=== PATIENT | female | born 1940 | race Native Hawaiian/Other Pacific Islander ===

== ENCOUNTER 2017-02-04 04:16 | Inpatient (IN) | payer OTHER, MEDICARE ==
[2017-02-04 04:16] VITALS: BMI 24.9
[2017-02-04] MEDS ORDERED: Aspirin 325 mg EC Tablets PO STA (04:50)
--- NOTE | 2017-02-04 04:50 | C.PDOC ---
History Of Present Illness pt brought in by family for increasing shortness of breath. Pt is m-w-f hemodialysis. Speaking in 2-3 word sentences. NO f/c/n/v Time Seen by Provider: 02/04/17 04:49 Chief Complaint (Nursing): Chest Pain History Per: Family History/Exam Limitations: clinical condition Current Symptoms Are (Timing): Worse Context: Other Severity: Severe Pain Scale Rating Of: 8 Quality: Dull Associated Symptoms: Dyspnea Modifying Factors: None Exacerbating Factors: None Alleviating Factors: None Recent travel outside of the [place]: No Additional History Per: Family Past Medical History Reviewed: Historical Data, Nursing Documentation, Vital Signs Vital Signs: Last Vital Signs Temp 97.8 F 02/04/17 04:33 Pulse 82 02/04/17 06:24 Resp 12 02/04/17 04:33 BP 97/53 L 02/04/17 04:33 Pulse Ox 95 02/04/17 05:33 - Medical History PMH: Anemia, Arthritis, Atrial Fibrillation, Cardia Arrhythmia, Gastritis, HTN, Hypercholesterolemia, End Stage Renal Disease, Chronic Kidney Disease Surgical History: CABG (CABG x 4 on 03/06/2009.), Endoscopy - [facility] Procedures DILATION OF 1 COR ART WITH DRUG-ELUT INTRA, PERC APPROACH (05/09/15) FLUOROSCOPY OF LEFT HEART USING LOW OSMOLAR CONTRAST (05/09/15) FLUOROSCOPY OF SINGLE CORONARY ARTERY USING L OSM CONTRAST (05/09/15) MEASURE OF CARDIAC SAMPL & PRESSURE, L HEART, PERC APPROACH (05/09/15) OTHER LOCAL DESTRUC SKIN (12/27/13) PERFORMANCE OF URINARY FILTRATION, MULTIPLE (08/29/15) Family History: States: Hypertension - Social History Hx Tobacco Use: No Hx Alcohol Use: No Hx Substance Use: No - Immunization History Hx Tetanus Toxoid Vaccination: No Hx Influenza Vaccination: Yes Hx Pneumococcal Vaccination: Yes Review Of Systems Review Of Systems: ROS cannot be obtained secondary to pt's inabilty to answer questions. Physical Exam - Physical Exam Appears: In Acute Distress Skin: Warm, Dry Head: Normacephalic Eye(s): bilateral: Normal Inspection Oral Mucosa: Dry Neck: Supple Chest: Symmetrical Cardiovascular: Rhythm Irregular Respiratory: Decreased Breath Sounds, Rales, No Wheezing Gastrointestinal/Abdominal: Soft, No Tenderness, Distention Back: No CVA Tenderness Extremity: Pedal Edema (trace), Other (left gortex graft with good thrill and bruit) Extremity: Bilateral: Atraumatic Neurological/Psych: Slow To Respond With Command Gait: Unable To Assess ED Course And Treatment - Laboratory Results Result Diagrams: 02/04/17 05:15 02/04/17 05:15 ECG: Interpreted By Me, Viewed By Me ECG Rhythm: Atrial Fibrillation, Nonspecific Changes O2 Sat by Pulse Oximetry: 95 Pulse Ox Interpretation: Normal - Radiology CXR: Interpreted by Me, Viewed By Me CXR Interpretation: Yes: Cardiomegaly, Other (chf, ? rll infiltrate, cabg). No : Fracture Progress Note: cardiac work up, bipap. spoke with dr larsen. will dialyse on an ememrgent basis. sat 96-98 on bipap Critical Care Time - Critical Care Note Total Time (in mins): 30 Documented critical care: time excludes all time spent performing seperately billable procedures. Disposition Discussed With Dr.: Izabel Peterson Comment: accepted the pt on his service and took over the care at 6:48AM Doctor Will See Patient In The: Hospital Counseled Patient/Family Regarding: Studies Performed, Diagnosis - Disposition Disposition: HOSPITALIZED Disposition Time: 04:30 Condition: FAIR - POA Present On Arrival: Poor Glycemic Control - Clinical Impression Clinical Impression: ESRD (end stage renal disease) on dialysis, Afib, Congestive heart failure, Elevated liver enzymes Decision To Admit - Pt Status Changed To: Hospital Disposition Of: Inpatient - Admit Certification Admit to Inpatient:: After my assessment, the patient will require hospitalization for at least two midnights. This is because of the severity of symptoms shown, intensity of services needed, and/or the medical risk in this patient being treated as an outpatient. - InPatient: Physician Admission Certification: I certify that this patient requires 2 or more midnights of care for the following reason:: After my assessment, the patient will require hospitalization for at least two midnights. This is because of the severity of symptoms shown, intensity of services needed, and/or the medical risk in this patient being treated as an outpatient. - . Bed Request Type: Telemetry Admitting Physician: Izabel Peterson Patient Diagnosis: ESRD (end stage renal disease) on dialysis, Afib, Congestive heart failure
[2017-02-04 05:18] LABS: BASO % 0.4 % (0.0-2.0); HEMOGLOBIN 11.4 g/dL (11.0-16.0); LYMPH # 0.4 K/uL (1.0-4.3); LYMPH % 4.3 % (20.0-40.0); MEAN CELL VOLUME 101.6 fL (81.0-99.0); MEAN CORPUSCULAR HEMOGLOBIN 32.4 pg (27.0-31.0); MEAN CORPUSCULAR HGB CONC 31.9 g/dL (33.0-37.0); MEAN PLATELET VOLUME 8.8 fL (7.2-11.7); MONO # 1.1 K/uL (0.0-0.8); MONO % 11.5 % (0.0-10.0); NEUT # 7.7 K/uL (1.8-7.0); NEUT % 83.8 % (50.0-75.0); NRBC % 0.2 % (0.0-2.0); PLATELET COUNT 127 K/uL (130-400); RBC 3.51 Mil/uL (3.80-5.20); RED CELL DISTRIBUTION WIDTH 16.9 % (11.5-14.5); WHITE BLOOD COUNT 9.2 K/uL (4.8-10.8)
[2017-02-04 05:47] LABS: ABG ALLEN TEST POS; ARTERIAL BLOOD GAS HCO3 24.2 mmol/L (21-28); ARTERIAL BLOOD GAS O2 SAT 99.6 % (95-98); ARTERIAL BLOOD GAS PCO2 57 mm/Hg (35-45); ARTERIAL BLOOD GAS PH 7.28 (7.35-7.45); ARTERIAL BLOOD GAS PO2 123 mm/Hg (80-100); ARTERIAL BLOOD GAS TCO2 28.5 mmol/L (22-28)
[2017-02-04 05:59] LABS: INR 1.7; PROTHROMBIN TIME 19.3 SECONDS (9.7-12.2)
[2017-02-04 06:17] LABS: ALBUMIN 3.9 g/dL (3.5-5.0)
[2017-02-04 06:20] LABS: ALB/GLOB RATIO 1.1 (1.0-2.1); CALCIUM 8.2 mg/dl (8.6-10.4)
[2017-02-04 06:36] LABS: TROPONIN I 0.864 ng/mL (0.00-0.120)
[2017-02-04 06:49] LABS: LYMPHOCYTE 4 % (20-40); MONOCYTE 12 % (0-10); NEUTROPHIL 84 % (50-75); PLATELET ESTIMATE NORMAL (NORMAL); TOTAL CELLS COUNTED 100
[2017-02-04] MEDS ORDERED: Sodium Chloride 0.9% 250 ML IV ONE ×2 (08:16→08:20)
--- NOTE | 2017-02-04 10:12 | RAD ---
PROCEDURE: CHEST RADIOGRAPH, 1 VIEW HISTORY: Chest pain COMPARISON: 10/18/2015. FINDINGS: LUNGS: There is pulmonary venous congestion. There is ill-defined airspace disease in the right lower lobe. PLEURA: No pneumothorax or pleural fluid seen. CARDIOVASCULAR: There is persistent moderate cardiomegaly. There are multiple surgical clips in the left hilum. Status post CABG. Atherosclerotic aortic arch calcifications are present. . OSSEOUS STRUCTURES: No significant abnormalities. VISUALIZED UPPER ABDOMEN: Normal. OTHER FINDINGS: None. IMPRESSION: Question of right lower lobe pneumonia. Follow-up after medical management is recommended to ensure complete resolution. Persistent moderate cardiomegaly.
[2017-02-04] MEDS: (Lantus) Insulin Glargine, Recombinant SC SCH ×2 (14:58→17:03)
--- NOTE | 2017-02-04 15:00 | CP.PCM.CON ---
History of Present Illness - History of Present Illness History of Present Illness: 76 y/o FF presents with increased dyspnea. CHF diagnosed and needed immediate dialysis- UF 2500ml Has been compliant with dialysis PMH: ESRD HTN DL CAD- POST CABG ICMP PSH: CABG 2008 AV FISTULA CONSULT DICTATED WILL ARRANGE FOR DIALYSIS MWF WITH ADEQUATE UF Past Patient History - Infectious Disease Hx of Infectious Diseases: None - Past Medical History & Family History Past Medical History?: Yes - Past Social History Smoking Status: Never Smoked - CARDIAC Hx Atrial Fibrillation: Yes Hx Cardia Arrhythmia: Yes Hx Hypercholesterolemia: Yes Hx Hypertension: Yes - PULMONARY Hx Respiratory Disorders: Yes Hx Pulmonary Edema: Yes - NEUROLOGICAL Hx Neurological Disorder: Yes Hx Dizziness: Yes - HEENT Hx HEENT Problems: Yes Hx Cataracts: Yes (Left and right cataract extraction in 2011) Hx Glaucoma: Yes - RENAL Hx Chronic Kidney Disease: Yes - ENDOCRINE/METABOLIC Hx Endocrine Disorders: Yes Hx Diabetes Mellitus Type 2: Yes - HEMATOLOGICAL/ONCOLOGICAL Hx Anemia: Yes - INTEGUMENTARY Hx Dermatological Problems: No - MUSCULOSKELETAL/RHEUMATOLOGICAL Hx Arthritis: Yes Hx Falls: No - GASTROINTESTINAL Hx Gastritis: Yes - GENITOURINARY/GYNECOLOGICAL Hx Genitourinary Disorders: No - PSYCHIATRIC Hx Substance Use: No - SURGICAL HISTORY Hx Coronary Artery Bypass Graft: Yes (CABG x 4 on 03/06/2009.) - ANESTHESIA Hx Anesthesia: Yes Hx Anesthesia Reactions: No Hx Malignant Hyperthermia: No Meds Allergies/Adverse Reactions: Allergies Allergy/AdvReac Type Severity Reaction Status Date / Time No Known Allergies Allergy Verified 02/27/16 12:51 - Medications Medications: Current Medications Amlodipine Besylate (Norvasc) 5 mg PO DAILY [facility] Last Admin: 02/04/17 14:51 Dose: Not Given Apixaban (Eliquis) 2.5 mg PO BID [facility] Cilostazol (Pletal) 100 mg PO BID [facility] Cinacalcet (Sensipar) 30 mg PO DAILY [facility] Clopidogrel Bisulfate (Plavix) 75 mg PO DAILY [facility] Diltiazem HCl (Cardizem) 60 mg PO QID [facility] Last Admin: 02/04/17 14:51 Dose: Not Given Famotidine (Pepcid) 20 mg PO DAILY [facility] [place] Moxifloxacin HCl (Avelox Iv 400mg/250ml Ns) 400 mg in 250 mls @ 167 mls/hr IVPB MWF [facility] Insulin Glargine (Lantus) 50 unit SC BID [facility] Pregabalin (Lyrica) 25 mg PO TID [facility] [place] Last Admin: 02/04/17 14:54 Dose: Not Given Rosuvastatin Calcium (Crestor) 10 mg PO [facility] Sevelamer Carbonate (Renvela) 800 mg PO TID [facility] Last Admin: 02/04/17 14:52 Dose: Not Given Results - Vital Signs Recent Vital Signs: Last Vital Signs Temp 97.8 F 02/04/17 10:05 Pulse 76 02/04/17 14:40 Resp 20 02/04/17 14:40 BP 91/52 L 02/04/17 14:40 Pulse Ox 95 02/04/17 14:40 - Labs Result Diagrams: 02/04/17 05:15 02/04/17 05:15
[2017-02-04] MEDS: Cilostazol 100 mg Tab UD PO SCH ×2 (15:23→17:24)
--- NOTE | 2017-02-04 15:43 | CP.PCM.CON ---
History of Present Illness - History of Present Illness History of Present Illness: 76 y/o FF presents with increased dyspnea. CHF diagnosed and needed immediate dialysis- UF 2500ml Has been compliant with dialysis PMH: ESRD HTN DL CAD- POST CABG ICMP PSH: CABG 2008 AV FISTULA CONSULT DICTATED WILL ARRANGE FOR DIALYSIS MWF WITH ADEQUATE UF Review of Systems - Review of Systems Systems not reviewed;Unavailable: Respiratory Distress Past Patient History - Infectious Disease Hx of Infectious Diseases: None - Past Medical History & Family History Past Medical History?: Yes - Past Social History Smoking Status: Never Smoked Chewing Tobacco Use: No Cigar Use: No Alcohol: None Drugs: Denies Home Situation {Lives}: With Family - CARDIAC Hx Atrial Fibrillation: Yes Hx Cardia Arrhythmia: Yes Hx Hypercholesterolemia: Yes Hx Hypertension: Yes - PULMONARY Hx Respiratory Disorders: Yes Hx Pulmonary Edema: Yes - NEUROLOGICAL Hx Neurological Disorder: Yes Hx Dizziness: Yes - HEENT Hx HEENT Problems: Yes Hx Cataracts: Yes (Left and right cataract extraction in 2011) Hx Glaucoma: Yes - RENAL Hx Chronic Kidney Disease: Yes - ENDOCRINE/METABOLIC Hx Endocrine Disorders: Yes Hx Diabetes Mellitus Type 2: Yes - HEMATOLOGICAL/ONCOLOGICAL Hx Anemia: Yes - INTEGUMENTARY Hx Dermatological Problems: No - MUSCULOSKELETAL/RHEUMATOLOGICAL Hx Arthritis: Yes Hx Falls: No - GASTROINTESTINAL Hx Gastritis: Yes - GENITOURINARY/GYNECOLOGICAL Hx Genitourinary Disorders: No - PSYCHIATRIC Hx Substance Use: No - SURGICAL HISTORY Hx Coronary Artery Bypass Graft: Yes (CABG x 4 on 03/06/2009.) - ANESTHESIA Hx Anesthesia: Yes Hx Anesthesia Reactions: No Hx Malignant Hyperthermia: No Meds Allergies/Adverse Reactions: Allergies Allergy/AdvReac Type Severity Reaction Status Date / Time No Known Allergies Allergy Verified 02/27/16 12:51 - Medications Medications: Current Medications Amlodipine Besylate (Norvasc) 5 mg PO DAILY [facility] Last Admin: 02/04/17 14:51 Dose: Not Given Apixaban (Eliquis) 2.5 mg PO BID [facility] Last Admin: 02/04/17 15:06 Dose: Not Given Cilostazol (Pletal) 100 mg PO BID [facility] Last Admin: 02/04/17 15:23 Dose: 100 mg Cinacalcet (Sensipar) 30 mg PO DAILY [facility] Last Admin: 02/04/17 15:23 Dose: 30 mg Clopidogrel Bisulfate (Plavix) 75 mg PO DAILY [facility] Last Admin: 02/04/17 15:23 Dose: 75 mg Diltiazem HCl (Cardizem) 60 mg PO QID [facility] Last Admin: 02/04/17 14:51 Dose: Not Given Famotidine (Pepcid) 20 mg PO DAILY [facility] Last Admin: 02/04/17 15:23 Dose: 20 mg Moxifloxacin HCl (Avelox Iv 400mg/250ml Ns) 400 mg in 250 mls @ 167 mls/hr IVPB MWF [facility] Insulin Glargine (Lantus) 50 unit SC BID [facility] Last Admin: 02/04/17 14:58 Dose: Not Given Pregabalin (Lyrica) 25 mg PO TID [facility] Last Admin: 02/04/17 15:22 Dose: 25 mg Rosuvastatin Calcium (Crestor) 10 mg PO [facility] Sevelamer Carbonate (Renvela) 800 mg PO TID [facility] Last Admin: 02/04/17 15:23 Dose: 800 mg Physical Exam - Constitutional Appears: In Acute Distress, Chronically Ill - Head Exam Head Exam: ATRAUMATIC, NORMAL INSPECTION - Eye Exam Eye Exam: EOMI, Normal appearance - Neck Exam Neck exam: Positive for: Normal Inspection. Negative for: Tenderness - Respiratory Exam Respiratory Exam: Rales, Respiratory Distress - Cardiovascular Exam Cardiovascular Exam: REGULAR RHYTHM, +S1 - GI/Abdominal Exam GI & Abdominal Exam: Soft. absent: Tenderness - Extremities Exam Extremities exam: Positive for: normal inspection. Negative for: tenderness - Neurological Exam Neurological exam: Alert, CN II-XII Intact - Skin Skin Exam: Dry, Warm Results - Vital Signs Recent Vital Signs: Last Vital Signs Temp 97.8 F 02/04/17 10:05 Pulse 76 02/04/17 14:40 Resp 20 02/04/17 14:40 BP 91/52 L 02/04/17 14:40 Pulse Ox 95 02/04/17 14:40 - Labs Result Diagrams: 02/04/17 05:15 02/04/17 05:15 Assessment & Plan (1) Ischemic cardiomyopathy Status: Acute (2) Afib Status: Acute (3) Congestive heart failure Status: Acute (4) ESRD (end stage renal disease) on dialysis Status: Chronic (5) CAD (coronary artery disease) of artery bypass graft Status: Acute - Assessment and Plan (Free Text) Plan: UF with dialysis BiPAP as needed Dialysis MWF
--- NOTE | 2017-02-04 18:11 | CP.PCM.HP ---
Past Patient History - Infectious Disease Hx of Infectious Diseases: None - Past Medical History & Family History Past Medical History?: Yes - Past Social History Smoking Status: Never Smoked Chewing Tobacco Use: No Cigar Use: No Alcohol: None Drugs: Denies Home Situation {Lives}: With Family - CARDIAC Hx Atrial Fibrillation: Yes Hx Cardia Arrhythmia: Yes Hx Hypercholesterolemia: Yes Hx Hypertension: Yes - PULMONARY Hx Respiratory Disorders: Yes Hx Pulmonary Edema: Yes - NEUROLOGICAL Hx Neurological Disorder: Yes Hx Dizziness: Yes - HEENT Hx HEENT Problems: Yes Hx Cataracts: Yes (Left and right cataract extraction in 2011) Hx Glaucoma: Yes - RENAL Hx Chronic Kidney Disease: Yes - ENDOCRINE/METABOLIC Hx Endocrine Disorders: Yes Hx Diabetes Mellitus Type 2: Yes - HEMATOLOGICAL/ONCOLOGICAL Hx Anemia: Yes - INTEGUMENTARY Hx Dermatological Problems: No - MUSCULOSKELETAL/RHEUMATOLOGICAL Hx Arthritis: Yes Hx Falls: No - GASTROINTESTINAL Hx Gastritis: Yes - GENITOURINARY/GYNECOLOGICAL Hx Genitourinary Disorders: No - PSYCHIATRIC Hx Substance Use: No - SURGICAL HISTORY Hx Coronary Artery Bypass Graft: Yes (CABG x 4 on 03/06/2009.) - ANESTHESIA Hx Anesthesia: Yes Hx Anesthesia Reactions: No Hx Malignant Hyperthermia: No Meds Allergies/Adverse Reactions: Allergies Allergy/AdvReac Type Severity Reaction Status Date / Time No Known Allergies Allergy Verified 02/27/16 12:51 Physical Exam - Constitutional Appears: Well - Head Exam Head Exam: ATRAUMATIC, NORMAL INSPECTION, NORMOCEPHALIC - Eye Exam Eye Exam: EOMI, Normal appearance, PERRL Pupil Exam: NORMAL ACCOMODATION, PERRL - ENT Exam ENT Exam: Mucous Membranes Moist, Normal Exam - Neck Exam Neck exam: Positive for: Normal Inspection - Respiratory Exam Respiratory Exam: Decreased Breath Sounds - Cardiovascular Exam Cardiovascular Exam: REGULAR RHYTHM, +S1, +S2 - GI/Abdominal Exam GI & Abdominal Exam: Diminished Bowel Sounds, Soft - Rectal Exam Rectal Exam: Deferred Results - Vital Signs Recent Vital Signs: Last Vital Signs Temp 98 F 02/04/17 16:30 Pulse 87 02/04/17 16:30 Resp 20 02/04/17 16:30 BP 92/53 L 02/04/17 16:30 Pulse Ox 95 02/04/17 16:30 - Labs Result Diagrams: 02/04/17 05:15 02/04/17 05:15 Labs: Laboratory Results - last 24 hr 02/04/17 02/04/17 16:40 17:10 POC Glucose (mg/dL) 45 L 71
--- NOTE | 2017-02-04 18:43 | US ---
HISTORY: elevated liver enzymes COMPARISON: None available. TECHNIQUE: Sonographic evaluation of the right upper quadrant of the abdomen. FINDINGS: LIVER: Measures 14.1 cm in length. Echogenic liver may be seen in setting of hepatic parenchymal disease or fatty infiltration. No focal hepatic mass identified. The main portal vein appears patent with normal directional flow. No intrahepatic bile duct dilatation. GALLBLADDER: No gallstones. Pericholecystic edema/ gallbladder-wall thickening measuring up to 7 mm. 6 mm echogenic focus without clear evidence of posterior acoustic shadowing, favored to represent a polyp. Negative sonographic Sanchez's sign as assessed by the coupon and bond collection clerk. COMMON BILE DUCT: Measures 6 mm. PANCREAS: Not well-visualized. RIGHT KIDNEY: Measures 7.1 x 2.5 x 3.2 cm. No hydronephrosis or obstructing calculus identified. Echogenic renal parenchyma. AORTA: Limited visualization appears grossly unremarkable. IVC: Limited visualization appears grossly unremarkable. OTHER FINDINGS: Incidental note is made of right-sided pleural effusion. Small abdominal ascites. IMPRESSION: Echogenic liver may be seen in setting of hepatic parenchymal disease or fatty infiltration. Suspected gallbladder polyp measuring approximately 6 mm. No consensus exist regarding management of polyps in the size range. Current recommendations indicate continued surveillance with serial follow-up imaging at 3, 6, and 12 months. Gallbladder wall edema/wall thickening measuring up to 7 mm. No calcified gallstones evident. Negative sonographic Sanchez sign as assessed by the coupon and bond collection clerk. Echogenic renal parenchyma may be seen in setting of medical renal disease. Right-sided pleural effusion. Small abdominal ascites.
--- NOTE | 2017-02-05 07:35 | CP.PCM.CON ---
<Attila Alonzo - Last Filed: 02/05/17 11:55> History of Present Illness - History of Present Illness History of Present Illness: PGY4 GI Fellow Consult Note Patient is a 76yo female with PMHx significant for atrial fibrillation on Eliquis, CAD s/p PCI and 4 vessel CABG on Plavix, ESRD on HD MWF, DM, HTN, HLD who presented to the ED with shortness of breath. Earlier this morning, the patient was very drowsy and minimally arousable, falling asleep frequently during examination. She was only responding that she is "OK" and was not oriented to time/place. On returning to bedside an hour later, she is more alert but remains confused, unaware of where she is, how she came to be hospitalized or what year it is. Per the EMR, patient presented to the hospital with worsening shortness of breath; patient unable to describe time frame. On lab work, she is noted to have a elevated BNP, BUN/Cr c/w her h/o ESRD, troponin and elevated LFTs for which our service has been consulted. She was seen and evaluated by nephrology last night and had one session of HD performed with UF. In reviewing her prior admissions, she has never had elevated LFTs previously and does not have any known underlying liver disease. Currently, she denies any abdominal pain, nausea, vomiting or change in bowel habits. An attempt to reach the patient's spouse and son whose numbers are listed in the EMR were unsuccessful. PMHx: See HPI PSHx: 4 vessel CABG, PCI, AVF creation in left forearm FHx: Limited given clinical condition however patient denies any significant family history; per chart - HTN and DM Social: Denies tobacco, EtOH or illicit drug use Endo: Denies prior endoscopic evaluation Review of Systems - Review of Systems Review of Systems: Limited by altered mentation - Constitutional Constitutional: absent: Anorexia, Chills, Fever - EENT Eyes: absent: Change in Vision Nose/Mouth/Throat: absent: Sore Throat - Cardiovascular Cardiovascular: Dyspnea, Edema. absent: Chest Pain - Respiratory Respiratory: Dyspnea, Dyspnea on Exertion. absent: Excessive Mucous Production - Gastrointestinal Gastrointestinal: absent: Abdominal Pain, Constipation, Cramping, Diarrhea, Heartburn, Nausea, Vomiting - Genitourinary Genitourinary: absent: Dysuria, Urinary Frequency, Urinary Urgency - Musculoskeletal Musculoskeletal: absent: Back Pain, Neck Pain - Integumentary Integumentary: absent: New Lesions, Rash - Neurological Neurological: absent: Dizziness, Numbness, Focal Weakness - Psychiatric Psychiatric: absent: Anxiety, Depression - Endocrine Endocrine: absent: Polydipsia, Polyphagia, Polyuria - Hematologic/Lymphatic Hematologic: absent: Easy Bleeding, Easy Bruising, Lymphadenopathy Past Patient History - Infectious Disease Hx of Infectious Diseases: None - Past Medical History & Family History Past Medical History?: Yes - Past Social History Smoking Status: Never Smoked Chewing Tobacco Use: No Cigar Use: No Alcohol: None Drugs: Denies Home Situation {Lives}: With Family - CARDIAC Hx Atrial Fibrillation: Yes Hx Cardia Arrhythmia: Yes Hx Hypercholesterolemia: Yes Hx Hypertension: Yes - PULMONARY Hx Respiratory Disorders: Yes Hx Pulmonary Edema: Yes - NEUROLOGICAL Hx Neurological Disorder: Yes Hx Dizziness: Yes - HEENT Hx HEENT Problems: Yes Hx Cataracts: Yes (Left and right cataract extraction in 2012) Hx Glaucoma: Yes - RENAL Hx Chronic Kidney Disease: Yes - ENDOCRINE/METABOLIC Hx Endocrine Disorders: Yes Hx Diabetes Mellitus Type 2: Yes - HEMATOLOGICAL/ONCOLOGICAL Hx Anemia: Yes - INTEGUMENTARY Hx Dermatological Problems: No - MUSCULOSKELETAL/RHEUMATOLOGICAL Hx Arthritis: Yes Hx Falls: No - GASTROINTESTINAL Hx Gastritis: Yes - GENITOURINARY/GYNECOLOGICAL Hx Genitourinary Disorders: No - PSYCHIATRIC Hx Substance Use: No - SURGICAL HISTORY Hx Coronary Artery Bypass Graft: Yes (CABG x 4 on 03/06/2009.) - ANESTHESIA Hx Anesthesia: Yes Hx Anesthesia Reactions: No Hx Malignant Hyperthermia: No Meds Allergies/Adverse Reactions: Allergies Allergy/AdvReac Type Severity Reaction Status Date / Time No Known Allergies Allergy Verified 02/27/16 12:51 - Medications Medications: Current Medications Amlodipine Besylate (Norvasc) 5 mg PO DAILY [facility] [place] Last Admin: 02/04/17 14:51 Dose: Not Given Apixaban (Eliquis) 2.5 mg PO BID [facility] [place] Last Admin: 02/04/17 17:27 Dose: 2.5 mg Cilostazol (Pletal) 100 mg PO BID [facility] [place] Last Admin: 02/04/17 17:24 Dose: 100 mg Cinacalcet (Sensipar) 30 mg PO DAILY [facility] [place] Last Admin: 02/04/17 15:23 Dose: 30 mg Clopidogrel Bisulfate (Plavix) 75 mg PO DAILY [facility] [place] Last Admin: 02/04/17 15:23 Dose: 75 mg Diltiazem HCl (Cardizem) 60 mg PO QID [facility] [place] Last Admin: 02/04/17 21:17 Dose: Not Given Famotidine (Pepcid) 20 mg PO DAILY [facility] [place] Last Admin: 02/04/17 15:23 Dose: 20 mg Moxifloxacin HCl (Avelox Iv 400mg/250ml Ns) 400 mg in 250 mls @ 167 mls/hr IVPB MWF [facility] [place] Insulin Glargine (Lantus) 50 unit SC BID [facility] [place] Last Admin: 02/04/17 17:03 Dose: Not Given Pregabalin (Lyrica) 25 mg PO TID [facility] [place] Last Admin: 02/04/17 17:24 Dose: 25 mg Rosuvastatin Calcium (Crestor) 10 mg PO HS [facility] [place] Last Admin: 02/04/17 21:10 Dose: 10 mg Sevelamer Carbonate (Renvela) 800 mg PO TID [facility] [place] Last Admin: 02/04/17 17:24 Dose: 800 mg Physical Exam - Constitutional Appears: No Acute Distress, Confused - Eye Exam Eye Exam: EOMI, PERRL - ENT Exam ENT Exam: Mucous Membranes Dry - Respiratory Exam Respiratory Exam: Decreased Breath Sounds, Rales. absent: Rhonchi, Wheezes Additional comments: wearning ventimask - Cardiovascular Exam Cardiovascular Exam: Irregular Rhythm, +S1, +S2 - GI/Abdominal Exam GI & Abdominal Exam: Normal Bowel Sounds, Soft. absent: Distended, Firm, Guarding, Organomegaly, Rigid, Tenderness - Extremities Exam Additional comments: B/L 1+ LE edema - Neurological Exam Additional comments: Drowsy but arousable; oriented to person only - Psychiatric Exam Additional comments: confused - Skin Skin Exam: Dry, Warm Results - Vital Signs Recent Vital Signs: Last Vital Signs Temp 98.3 F 02/05/17 04:44 Pulse 86 02/05/17 05:59 Resp 20 02/05/17 05:59 BP 103/56 L 02/05/17 05:59 Pulse Ox 99 02/05/17 05:59 - Labs Result Diagrams: 02/05/17 07:29 02/05/17 07:29 Labs: Laboratory Results - last 24 hr 02/04/17 02/04/17 02/04/17 16:40 17:10 20:52 POC Glucose (mg/dL) 45 L 71 255 H 02/05/17 06:09 POC Glucose (mg/dL) 204 H Assessment & Plan - Assessment and Plan (Free Text) Assessment: Patient is a 76yo female with PMHx significant for atrial fibrillation on Eliquis, CAD s/p PCI and 4 vessel CABG on Plavix, ESRD on HD MWF, DM, HTN, HLD who presented to the ED with shortness of breath -Dyspnea, likely 2/2 acute diastolic CHF exacerbation -ESRD on HD -Elevated LFTs, hepatocellular pattern -CAD -Atrial fibrillation -DM -HTN -Hyperlipidemia Plan: -Significantly elevated BNP noted -Pt s/p HD/UF last night; nephrology following -Check echocardiogram; last exam from 2014 -Troponin elevation noted; possibly demand ischemia; cardiology following -Respiratory acidosis noted on initial blood gas, on venitmask - ICU had evaluated patient -Regarding her LFTs; suspect congestive hepatopathy in this setting, check echocardiogram and eval right heart -U/S noted with hepatic steatosis; patent portal vasculature -Check Hepatitis panel -Check autoimmune panel: SALOMÓN, AMA, SMA, LKM-Ab, IgG level -Recommend CT head given altered mentation - Date & Time Date: 02/05/17 Time: 06:50 <Elvis Burt - Last Filed: 02/05/17 16:18> Meds - Medications Medications: Current Medications Amlodipine Besylate (Norvasc) 5 mg PO DAILY [facility] [place] Last Admin: 02/04/17 14:51 Dose: Not Given Apixaban (Eliquis) 2.5 mg PO BID [facility] [place] Last Admin: 02/05/17 11:54 Dose: 2.5 mg Cilostazol (Pletal) 100 mg PO BID [facility] [place] Last Admin: 02/05/17 11:55 Dose: 100 mg Cinacalcet (Sensipar) 30 mg PO DAILY [facility] [place] Last Admin: 02/05/17 11:55 Dose: 30 mg Clopidogrel Bisulfate (Plavix) 75 mg PO DAILY [facility] [place] Last Admin: 02/05/17 11:55 Dose: 75 mg Diltiazem HCl (Cardizem) 60 mg PO QID [facility] [place] Last Admin: 02/04/17 21:17 Dose: Not Given Famotidine (Pepcid) 20 mg PO DAILY [facility] [place] Last Admin: 02/05/17 11:54 Dose: 20 mg Moxifloxacin HCl (Avelox Iv 400mg/250ml Ns) 400 mg in 250 mls @ 167 mls/hr IVPB Q24H [facility] [place] Last Admin: 02/05/17 12:55 Dose: 167 mls/hr Insulin Glargine (Lantus) 50 unit SC BID [facility] [place] Last Admin: 02/05/17 09:16 Dose: Not Given Pregabalin (Lyrica) 25 mg PO TID [facility] [place] Last Admin: 02/05/17 14:11 Dose: Not Given Rosuvastatin Calcium (Crestor) 10 mg PO HS [facility] [place] Last Admin: 02/04/17 21:10 Dose: 10 mg Sevelamer Carbonate (Renvela) 800 mg PO TID [facility] [place] Last Admin: 02/05/17 14:11 Dose: Not Given Results - Vital Signs Recent Vital Signs: Last Vital Signs Temp 97.5 F L 02/05/17 15:54 Pulse 103 H 02/05/17 15:54 Resp 20 02/05/17 15:54 BP 143/86 02/05/17 15:54 Pulse Ox 96 02/05/17 15:54 - Labs Result Diagrams: 02/05/17 12:00 02/05/17 12:00 Labs: Laboratory Results - last 24 hr 02/04/17 02/04/17 02/04/17 16:40 17:10 20:52 WBC RBC Hgb Hct MCV MCH MCHC RDW Plt Count MPV Neut % (Auto) Lymph % (Auto) [place] % (Auto) Eos % (Auto) Baso % (Auto) Neut # Lymph # [place] # Eos # Baso # Neutrophils % (Manual) Band Neutrophils % Lymphocytes % (Manual) Monocytes % (Manual) Nucleated RBC % Platelet Estimate Large Platelets Giant Platelets Hypochromasia (manual) Poikilocytosis (manual Basophilic Stippling Anisocytosis (manual) Ovalocytes Puncture Site pCO2 pO2 HCO3 ABG pH ABG Total CO2 ABG O2 Saturation ABG Base Excess Nadir Test ABG Potassium A-a O2 Difference Respiratory Index Glucose Lactate FiO2 Sodium Potassium Chloride Carbon Dioxide Anion Gap BUN Creatinine Est GFR ( Amer) Est GFR (Non-Af Amer) POC Glucose (mg/dL) 45 L 71 255 H Random Glucose Calcium Phosphorus Magnesium Total Bilirubin Direct Bilirubin AST ALT Alkaline Phosphatase Total Creatine Kinase CK-MB (Mass) Troponin I, Quant Total Protein Albumin Globulin Albumin/Globulin Ratio Procalcitonin Arterial Blood Potassium IgG 02/05/17 02/05/17 02/05/17 06:09 07:29 07:29 WBC 6.5 RBC 3.15 L Hgb 10.2 L Hct 31.5 L MCV 99.9 H MCH 32.3 H MCHC 32.3 L RDW 16.1 H Plt Count 104 L D MPV 9.3 Neut % (Auto) 82.9 H Lymph % (Auto) 7.0 L [place] % (Auto) 9.5 Eos % (Auto) 0.3 Baso % (Auto) 0.3 Neut # 5.4 Lymph # 0.5 L [place] # 0.6 Eos # 0.0 Baso # 0.0 Neutrophils % (Manual) 83 H Band Neutrophils % Lymphocytes % (Manual) 8 L Monocytes % (Manual) 9 Nucleated RBC % 4 H Platelet Estimate Slightly decreased L Large Platelets Giant Platelets Hypochromasia (manual) Slight Poikilocytosis (manual Slight Basophilic Stippling Anisocytosis (manual) Slight Ovalocytes Slight Puncture Site pCO2 pO2 HCO3 ABG pH ABG Total CO2 ABG O2 Saturation ABG Base Excess Nadir Test ABG Potassium A-a O2 Difference Respiratory Index Glucose Lactate FiO2 Sodium 135 Potassium 4.3 Chloride 94 L Carbon Dioxide 33 H Anion Gap 12 BUN 27 H Creatinine 4.0 H Est GFR ( Amer) 13 Est GFR (Non-Af Amer) 11 POC Glucose (mg/dL) 204 H Random Glucose 173 H Calcium 7.9 L Phosphorus Magnesium Total Bilirubin 0.9 Direct Bilirubin 0.9 H AST 1003 H ALT 661 H D Alkaline Phosphatase 99 Total Creatine Kinase CK-MB (Mass) Troponin I, Quant Total Protein 6.2 L Albumin 3.3 L Globulin 2.9 Albumin/Globulin Ratio 1.1 Procalcitonin Arterial Blood Potassium IgG 02/05/17 02/05/17 02/05/17 10:01 10:03 11:17 WBC RBC Hgb Hct MCV MCH MCHC RDW Plt Count MPV Neut % (Auto) Lymph % (Auto) [place] % (Auto) Eos % (Auto) Baso % (Auto) Neut # Lymph # [place] # Eos # Baso # Neutrophils % (Manual) Band Neutrophils % Lymphocytes % (Manual) Monocytes % (Manual) Nucleated RBC % Platelet Estimate Large Platelets Giant Platelets Hypochromasia (manual) Poikilocytosis (manual Basophilic Stippling Anisocytosis (manual) Ovalocytes Puncture Site Rra pCO2 66 H pO2 109 H HCO3 28.7 H ABG pH 7.31 L ABG Total CO2 35.2 H ABG O2 Saturation 99.1 H ABG Base Excess 4.8 H Nadir Test Na ABG Potassium 3.9 A-a O2 Difference 522.0 Respiratory Index 4.8 Glucose 214 H Lactate 1.0 FiO2 100.0 Sodium 133.0 Potassium Chloride 98.0 Carbon Dioxide Anion Gap BUN Creatinine Est GFR ( Amer) Est GFR (Non-Af Amer) POC Glucose (mg/dL) 279 H 214 H Random Glucose Calcium Phosphorus Magnesium Total Bilirubin Direct Bilirubin AST ALT Alkaline Phosphatase Total Creatine Kinase CK-MB (Mass) Troponin I, Quant Total Protein Albumin Globulin Albumin/Globulin Ratio Procalcitonin Arterial Blood Potassium 3.9 IgG 02/05/17 02/05/17 02/05/17 12:00 12:00 12:00 WBC 6.2 RBC 3.26 L Hgb 10.4 L Hct 32.8 L MCV 100.6 H MCH 32.0 H MCHC 31.9 L RDW 16.1 H Plt Count 107 L MPV 9.1 Neut % (Auto) 85.4 H Lymph % (Auto) 5.0 L [place] % (Auto) 8.7 Eos % (Auto) 0.2 Baso % (Auto) 0.7 Neut # 5.3 Lymph # 0.3 L [place] # 0.5 Eos # 0.0 Baso # 0.0 Neutrophils % (Manual) 85 H Band Neutrophils % 2 Lymphocytes % (Manual) 7 L Monocytes % (Manual) 6 Nucleated RBC % Platelet Estimate Slightly decreased L Large Platelets Present Giant Platelets Present Hypochromasia (manual) Poikilocytosis (manual Slight Basophilic Stippling Slight Anisocytosis (manual) Slight Ovalocytes Slight Puncture Site pCO2 pO2 HCO3 ABG pH ABG Total CO2 ABG O2 Saturation ABG Base Excess Nadir Test ABG Potassium A-a O2 Difference Respiratory Index Glucose Lactate FiO2 Sodium 134 Potassium 4.1 Chloride 93 L Carbon Dioxide 31 H Anion Gap 14 BUN 28 H Creatinine 4.3 H Est GFR ( Amer) 12 Est GFR (Non-Af Amer) 10 POC Glucose (mg/dL) Random Glucose 280 H Calcium 8.0 L Phosphorus 3.5 Magnesium 2.2 Total Bilirubin 0.9 Direct Bilirubin AST 858 H ALT 667 H Alkaline Phosphatase 104 Total Creatine Kinase 229 H CK-MB (Mass) 3.06 Troponin I, Quant 1.5600 H* Total Protein 6.5 Albumin 3.5 Globulin 3.1 Albumin/Globulin Ratio 1.1 Procalcitonin Arterial Blood Potassium IgG 946.7 02/05/17 12:00 WBC RBC Hgb Hct MCV MCH MCHC RDW Plt Count MPV Neut % (Auto) Lymph % (Auto) [place] % (Auto) Eos % (Auto) Baso % (Auto) Neut # Lymph # [place] # Eos # Baso # Neutrophils % (Manual) Band Neutrophils % Lymphocytes % (Manual) Monocytes % (Manual) Nucleated RBC % Platelet Estimate Large Platelets Giant Platelets Hypochromasia (manual) Poikilocytosis (manual Basophilic Stippling Anisocytosis (manual) Ovalocytes Puncture Site pCO2 pO2 HCO3 ABG pH ABG Total CO2 ABG O2 Saturation ABG Base Excess Nadir Test ABG Potassium A-a O2 Difference Respiratory Index Glucose Lactate FiO2 Sodium Potassium Chloride Carbon Dioxide Anion Gap BUN Creatinine Est GFR ( Amer) Est GFR (Non-Af Amer) POC Glucose (mg/dL) Random Glucose Calcium Phosphorus Magnesium Total Bilirubin Direct Bilirubin AST ALT Alkaline Phosphatase Total Creatine Kinase CK-MB (Mass) Troponin I, Quant Total Protein Albumin Globulin Albumin/Globulin Ratio Procalcitonin 1.39 H Arterial Blood Potassium IgG Attending/Attestation - Attestation I have personally seen and examined this patient.: Yes I have fully participated in the care of the patient.: Yes I have reviewed all pertinent clinical information: Yes Notes (Text): 02/05/17 16:06 I have seen and examined patient with GI fellow. Agree with above documentation with the following additions. In brief, this is a 76 year old female with history of atrial fibrillation on eliquis, CAD s/p stent on plavix, ESRD on HD, DM, HTN, CHF, who initially presented to hospital with complaint of progressive dyspnea, thought to be related to CHF exacerbation. GI called for evaluation of elevated LFTs. On examination, patient is lethargic appearing and only able to participate in minimal conversation before falling asleep. Additional information obtained via discussion with nursing staff and family members. She denies abdominal pain, nausea, vomiting, diarrhea, fever/chills, weight loss, rectal bleeding, or change in bowel habits. She describes that over the past few days she is not able to breathe properly, even with minimal exertion. She denies excessive ETOH or tylenol intake, no prior endoscopic evaluation. Atrial fibrillation on eliquis CAD s/p stent on plavix ESRD on HD DM / HTN Dyspnea, CHF exacerbation Transaminitis in setting of CHF exacerbation, troponinemia Altered mental status - acute posing threat to patient life - NPO - Suggest ICU evaluation for patient given altered mental status and acute cardiac compromise - Abdominal US reviewed by me showing fatty liver, normal caliber CBD without biliary dilation, +myah-cholecystic fluid and thickened GB wall, +GB polyp, patent vasculature - Suggest echocardiogram and cardiology consultation - Obtain viral hepatitis and autoimmune panels - Suggest CT head given altered mental status and history of atrial fibrillation - Continue to monitor LFTs, avoiding hepatotoxic therapy - Will continue to monitor patient clinical course
[2017-02-05 07:45] LABS: BASO % 0.3 % (0.0-2.0); EOS % 0.3 % (0.0-4.0); HEMOGLOBIN 10.2 g/dL (11.0-16.0); LYMPH # 0.5 K/uL (1.0-4.3); MEAN CELL VOLUME 99.9 fL (81.0-99.0); MEAN CORPUSCULAR HEMOGLOBIN 32.3 pg (27.0-31.0); MEAN CORPUSCULAR HGB CONC 32.3 g/dL (33.0-37.0); MEAN PLATELET VOLUME 9.3 fL (7.2-11.7); MONO # 0.6 K/uL (0.0-0.8); MONO % 9.5 % (0.0-10.0); NEUT # 5.4 K/uL (1.8-7.0); NEUT % 82.9 % (50.0-75.0); NRBC % 1.7 % (0.0-2.0); RBC 3.15 Mil/uL (3.80-5.20); RED CELL DISTRIBUTION WIDTH 16.1 % (11.5-14.5); WHITE BLOOD COUNT 6.5 K/uL (4.8-10.8)
[2017-02-05 07:56] LABS: PLATELET COUNT 104 K/uL (130-400)
[2017-02-05 08:16] LABS: ALBUMIN 3.3 g/dL (3.5-5.0)
[2017-02-05 08:19] LABS: ALB/GLOB RATIO 1.1 (1.0-2.1); BILIRUBIN,DIRECT 0.9 mg/dL (0.0-0.4)
[2017-02-05 08:20] LABS: CALCIUM 7.9 mg/dl (8.6-10.4)
[2017-02-05 08:56] LABS: ANISOCYTOSIS SLIGHT; HYPOCHROMIC SLIGHT; LYMPHOCYTE 8 % (20-40); MONOCYTE 9 % (0-10); NEUTROPHIL 83 % (50-75); NUCLEATED RED BLOOD CELL 4 % (0-0); PLATELET ESTIMATE SLIGHTLY DECREASED (NORMAL); POIKILOCYTOSIS SLIGHT; TOTAL CELLS COUNTED 100
[2017-02-05 08:57] LABS: OVALOCYTES SLIGHT
[2017-02-05] MEDS: (Lantus) Insulin Glargine, Recombinant SC SCH (09:16)
[2017-02-05 10:03] LABS: ARTERIAL BLOOD GAS HCO3 28.7 mmol/L (21-28); ARTERIAL BLOOD GAS O2 SAT 99.1 % (95-98); ARTERIAL BLOOD GAS PCO2 66 mm/Hg (35-45); ARTERIAL BLOOD GAS PH 7.31 (7.35-7.45); ARTERIAL BLOOD GAS PO2 109 mm/Hg (80-100); ARTERIAL BLOOD GAS TCO2 35.2 mmol/L (22-28)
--- NOTE | 2017-02-05 11:02 | RAD ---
Chest x-ray single frontal view History: Fluid overload. Comparison: 02/04/2017 Findings: Prominent diffuse increased interstitial lung markings bilaterally suggestive for severe venous congestion and or edema and or infiltrate and or additional etiology. Bilateral pleural effusions. Linear consolidative changes at the right lung base. Right left hilar prominence. Prominent left suprahilar consolidative changes. Status post median sternotomy. Cardiomegaly. Surgical clips project over the left macario thorax. Biapical pleural thickening with upper lobe granulomatous changes. Tortuous aorta. Degenerative changes in the spine and shoulders. Left axillary stent in place. Impression: Prominent diffuse increased interstitial lung markings bilaterally suggestive for severe venous congestion and or edema and or infiltrate and or additional etiology. Bilateral pleural effusions. Linear consolidative changes at the right lung base. Right left hilar prominence. Prominent left suprahilar consolidative changes. Status post median sternotomy. Cardiomegaly.
--- NOTE | 2017-02-05 11:09 | CP.PCM.PN ---
Subjective - Date & Time of Evaluation Date of Evaluation: 02/05/17 Time of Evaluation: 12:00 - Subjective Subjective: clinically same Objective - Vital Signs/Intake and Output Vital Signs (last 24 hours): Temp Pulse Resp BP Pulse Ox 98.3 F 86 20 103/56 L 99 02/05/17 04:44 02/05/17 10:42 02/05/17 05:59 02/05/17 05:59 02/05/17 05:59 Intake and Output: 02/05/17 02/05/17 06:59 18:59 Intake Total 10 Balance 10 - Medications Medications: Current Medications Amlodipine Besylate (Norvasc) 5 mg PO DAILY [facility] Last Admin: 02/04/17 14:51 Dose: Not Given Apixaban (Eliquis) 2.5 mg PO BID [facility] Last Admin: 02/04/17 17:27 Dose: 2.5 mg Cilostazol (Pletal) 100 mg PO BID [facility] Last Admin: 02/04/17 17:24 Dose: 100 mg Cinacalcet (Sensipar) 30 mg PO DAILY [facility] Last Admin: 02/04/17 15:23 Dose: 30 mg Clopidogrel Bisulfate (Plavix) 75 mg PO DAILY [facility] Last Admin: 02/04/17 15:23 Dose: 75 mg Diltiazem HCl (Cardizem) 60 mg PO QID [facility] Last Admin: 02/04/17 21:17 Dose: Not Given Famotidine (Pepcid) 20 mg PO DAILY [facility] Last Admin: 02/04/17 15:23 Dose: 20 mg Moxifloxacin HCl (Avelox Iv 400mg/250ml Ns) 400 mg in 250 mls @ 167 mls/hr IVPB MWF [facility] Moxifloxacin HCl (Avelox Iv 400mg/250ml Ns) 400 mg in 250 mls @ 167 mls/hr IVPB Q24H [facility] Insulin Glargine (Lantus) 50 unit SC BID [facility] Last Admin: 02/05/17 09:16 Dose: Not Given Pregabalin (Lyrica) 25 mg PO TID [facility] Last Admin: 02/04/17 17:24 Dose: 25 mg Rosuvastatin Calcium (Crestor) 10 mg PO HS [facility] Last Admin: 02/04/17 21:10 Dose: 10 mg Sevelamer Carbonate (Renvela) 800 mg PO TID [facility] Last Admin: 02/04/17 17:24 Dose: 800 mg - Labs Labs: 02/05/17 07:29 02/05/17 07:29 PT 19.3 SECONDS (9.7-12.2) H 02/04/17 05:15 INR 1.7 02/04/17 05:15 APTT 35 SECONDS (21-34) H 02/04/17 05:15 - Constitutional Appears: Well - Head Exam Head Exam: ATRAUMATIC, NORMAL INSPECTION, NORMOCEPHALIC - Eye Exam Eye Exam: EOMI, Normal appearance, PERRL Pupil Exam: NORMAL ACCOMODATION, PERRL - ENT Exam ENT Exam: Mucous Membranes Moist, Normal Exam - Neck Exam Neck Exam: Full ROM, Normal Inspection. absent: Lymphadenopathy - Respiratory Exam Respiratory Exam: Decreased Breath Sounds - Cardiovascular Exam Cardiovascular Exam: REGULAR RHYTHM, +S1, +S2 - GI/Abdominal Exam GI & Abdominal Exam: Soft, Diminished Bowel Sounds - Rectal Exam Rectal Exam: Deferred
--- NOTE | 2017-02-05 11:48 | PCM.RRTMUL ---
CENTRIFUGAL EXTRACTOR OPERATOR Nurses Assessment - Situation CENTRIFUGAL EXTRACTOR OPERATOR Responder Arrival Time:: 09:48 Room Number:: 651A CENTRIFUGAL EXTRACTOR OPERATOR Reason for Call: Hypotension - IV IV Inserted during CENTRIFUGAL EXTRACTOR OPERATOR?: Yes IV Fluids Initiated During CENTRIFUGAL EXTRACTOR OPERATOR?: 500 cc NS bolus New IV Insertion Tolerance:: Good - Respiratory Oxygen Delivery Method:: Mask - Ventilator Settings FIO2 (% Oxygen):: 100 - Diagnostic Test Ordered EKG:: Yes Chest X-Ray:: Yes CT Scan:: No - Stat Labs Ordered CENTRIFUGAL EXTRACTOR OPERATOR Stat Labs Ordered:: CBC, BMP, TROPONIN - Vital Signs Blood Pressure:: 82/41 Pulse Rate:: 108 Respiratory Rate:: 22 - [place] Coma Scale Coma Scale Eye Opening:: Spontaneous Coma Scale Motor:: Obeys Commands Movement - Time CENTRIFUGAL EXTRACTOR OPERATOR Ended Time CENTRIFUGAL EXTRACTOR OPERATOR Ended:: 10:10 - Vital Signs at end of CENTRIFUGAL EXTRACTOR OPERATOR Blood Pressure:: 102/70 I.Reason for CENTRIFUGAL EXTRACTOR OPERATOR - A) Acute Change in Patient: (Select all that apply): Acute change in SBP below (in 70s) Subjective: CENTRIFUGAL EXTRACTOR OPERATOR was called in Rm 651A by patients nurse due to hypotension. CENTRIFUGAL EXTRACTOR OPERATOR began at 0948. Patients BP at that time was 82/41. She was wearing a 100% non-rebreather mask. A new IV was placed as her other IV and midline were not functioning properly. 500cc bolus of NS was delivered. She was verbal, responsive and had spontaneous eye movement throughout. A ABG shock panel, blood culture, chest xray, procalcitonin, cbc, cmp, shayna and urine culture were ordered stat. Her CO2 was 66 and her lactate was normal. The CENTRIFUGAL EXTRACTOR OPERATOR concluded at 1010 and her BP at that time was 102/70. - A) Initial Vital Signs: Blood Pressure: 82/41 Pulse Rate: 108 Respiratory Rate: 22 - B) Neurological Status (Select all that apply): Responsive, Verbal - C) Respiratory Oxygen Delivery Method: Face Mask @% - Constitutional Appears: In Acute Distress - Head Head Exam: NORMAL INSPECTION - Respiratory Exam Respiratory Exam: NORMAL BREATHING PATTERN - Cardiovascular Exam Cardiovascular Exam: REGULAR RHYTHM - Neurological Exam Neurological Exam: Alert, Awake Plan - A. End of CENTRIFUGAL EXTRACTOR OPERATOR Vital Signs: Blood Pressure: 102/70
[2017-02-05] MEDS: Cilostazol 100 mg Tab UD PO SCH ×2 (11:55→18:00)
[2017-02-05] MEDS ORDERED: Moxifloxacin IV 400mg/250ml NS 400 MG/250 ML BAG IVPB SCH (12:00)
[2017-02-05 12:12] LABS: BASO % 0.7 % (0.0-2.0); EOS % 0.2 % (0.0-4.0); HEMOGLOBIN 10.4 g/dL (11.0-16.0); LYMPH # 0.3 K/uL (1.0-4.3); MEAN CELL VOLUME 100.6 fL (81.0-99.0); MEAN CORPUSCULAR HGB CONC 31.9 g/dL (33.0-37.0); MEAN PLATELET VOLUME 9.1 fL (7.2-11.7); MONO # 0.5 K/uL (0.0-0.8); MONO % 8.7 % (0.0-10.0); NEUT # 5.3 K/uL (1.8-7.0); NEUT % 85.4 % (50.0-75.0); NRBC % 1.8 % (0.0-2.0); PLATELET COUNT 107 K/uL (130-400); RBC 3.26 Mil/uL (3.80-5.20); RED CELL DISTRIBUTION WIDTH 16.1 % (11.5-14.5); WHITE BLOOD COUNT 6.2 K/uL (4.8-10.8)
[2017-02-05 12:28] LABS: ALBUMIN 3.5 g/dL (3.5-5.0)
[2017-02-05 12:31] LABS: ALB/GLOB RATIO 1.1 (1.0-2.1)
[2017-02-05 12:32] LABS: MAGNESIUM 2.2 mg/dL (1.6-2.3)
[2017-02-05 12:36] LABS: BANDS 2 % (0-2); LYMPHOCYTE 7 % (20-40); MONOCYTE 6 % (0-10); NEUTROPHIL 85 % (50-75); PLATELET ESTIMATE SLIGHTLY DECREASED (NORMAL); TOTAL CELLS COUNTED 100
[2017-02-05 12:37] LABS: ANISOCYTOSIS SLIGHT; OVALOCYTES SLIGHT; POIKILOCYTOSIS SLIGHT
[2017-02-05 12:38] LABS: CK-MB 3.06 ng/mL (0.0-3.38); LARGE PLATELETS PRESENT
[2017-02-05 12:39] LABS: GIANT PLATELETS PRESENT
--- NOTE | 2017-02-05 14:35 | CP.PCM.PN ---
Subjective - Date & Time of Evaluation Date of Evaluation: 02/05/17 Time of Evaluation: 14:33 - Subjective Subjective: events noted lethargic, no distress low bp Objective - Vital Signs/Intake and Output Vital Signs (last 24 hours): Temp Pulse Resp BP Pulse Ox 98.2 F 108 H 22 102/70 100 02/05/17 13:25 02/05/17 14:29 02/05/17 14:29 02/05/17 14:29 02/05/17 13:25 Intake and Output: 02/05/17 02/05/17 06:59 18:59 Intake Total 10 Balance 10 - Medications Medications: Current Medications Amlodipine Besylate (Norvasc) 5 mg PO DAILY [facility] Last Admin: 02/04/17 14:51 Dose: Not Given Apixaban (Eliquis) 2.5 mg PO BID [facility] Last Admin: 02/05/17 11:54 Dose: 2.5 mg Cilostazol (Pletal) 100 mg PO BID [facility] Last Admin: 02/05/17 11:55 Dose: 100 mg Cinacalcet (Sensipar) 30 mg PO DAILY [facility] Last Admin: 02/05/17 11:55 Dose: 30 mg Clopidogrel Bisulfate (Plavix) 75 mg PO DAILY [facility] Last Admin: 02/05/17 11:55 Dose: 75 mg Diltiazem HCl (Cardizem) 60 mg PO QID [facility] Last Admin: 02/04/17 21:17 Dose: Not Given Famotidine (Pepcid) 20 mg PO DAILY [facility] Last Admin: 02/05/17 11:54 Dose: 20 mg Moxifloxacin HCl (Avelox Iv 400mg/250ml Ns) 400 mg in 250 mls @ 167 mls/hr IVPB Q24H [facility] Last Admin: 02/05/17 12:55 Dose: 167 mls/hr Insulin Glargine (Lantus) 50 unit SC BID [facility] Last Admin: 02/05/17 09:16 Dose: Not Given Pregabalin (Lyrica) 25 mg PO TID [facility] Last Admin: 02/05/17 14:11 Dose: Not Given Rosuvastatin Calcium (Crestor) 10 mg PO HS [facility] Last Admin: 02/04/17 21:10 Dose: 10 mg Sevelamer Carbonate (Renvela) 800 mg PO TID [facility] Last Admin: 02/05/17 14:11 Dose: Not Given - Labs Labs: 02/05/17 12:00 02/05/17 12:00 PT 19.3 SECONDS (9.7-12.2) H 02/04/17 05:15 INR 1.7 02/04/17 05:15 APTT 35 SECONDS (21-34) H 02/04/17 05:15 - Constitutional Appears: No Acute Distress, Chronically Ill (lethargic) - Head Exam Head Exam: NORMAL INSPECTION - Eye Exam Eye Exam: Normal appearance - ENT Exam ENT Exam: Mucous Membranes Moist, Normal Exam - Neck Exam Neck Exam: Normal Inspection - Respiratory Exam Respiratory Exam: Decreased Breath Sounds, NORMAL BREATHING PATTERN - Cardiovascular Exam Cardiovascular Exam: Tachycardia, RRR - GI/Abdominal Exam GI & Abdominal Exam: Distended, Soft, Diminished Bowel Sounds - Extremities Exam Extremities Exam: Normal Inspection, Pedal Edema Assessment and Plan (1) Afib Status: Acute (2) Congestive heart failure Status: Acute (3) Ischemic cardiomyopathy Status: Acute (4) ESRD (end stage renal disease) on dialysis Status: Chronic (5) Acute [id number] elevation myocardial infarction Status: Acute (6) Acute pulmonary edema with congestive heart failure Status: Acute - Assessment and Plan (Free Text) Assessment: bp low today, unable to dialyze. consider icu transfer. plan for hd tomorrow.
--- NOTE | 2017-02-05 15:08 | CP.PCM.CON ---
History of Present Illness - History of Present Illness History of Present Illness: Consult Note for Dr. Seo Reason for consult: CHF 76 y/o F with PMH of A-fib on eliquis, CAD, ESRD on HD MWF, HTN, DM, and HLD initially presented on 02/04/17 for shortness of breath. Pt is a poor historian and much of information was gathered from prior medical records. Pt has been minimally arousable since arriving to ED. Pt stated she was short of breath, but was unable to establish a time frame of her symptoms. This morning during evaluation patient was lethargic and only answering yes and no questions. BNP and troponins were elevated on admission. At 1130, ELL TEACHER was called for patient due to hypotension. Pt had BP of 82//41 and was minimally arousable. Pt was given a 500cc bolus of fluid. Pt responded and became more alert, but still remained confused. Pt had troponins drawn again which showed an elevation. Upon reevaluation of the patient, she is resting comfortably on BIPAP. Pt states she does not have any chest pain or shortness of breath. She does not answer questions in complete sentences, but yes or no to questions. Full review of systems not available due to patients lethargy. PMH: A-fib, CAD, ESRD, HTN, DM, and HLD PSH: CABG Family Hx: HTN Social Hx: Denies tobacco, alcohol, or illicit drug use Allergies: NKDA Review of Systems - Review of Systems Systems not reviewed;Unavailable: Other (Lethargic ) Past Patient History - Infectious Disease Hx of Infectious Diseases: None - Past Medical History & Family History Past Medical History?: Yes - Past Social History Smoking Status: Never Smoked Chewing Tobacco Use: No Cigar Use: No Alcohol: None Drugs: Denies Home Situation {Lives}: With Family - CARDIAC Hx Atrial Fibrillation: Yes Hx Cardia Arrhythmia: Yes Hx Hypercholesterolemia: Yes Hx Hypertension: Yes - PULMONARY Hx Respiratory Disorders: Yes Hx Pulmonary Edema: Yes - NEUROLOGICAL Hx Neurological Disorder: Yes Hx Dizziness: Yes - HEENT Hx HEENT Problems: Yes Hx Cataracts: Yes (Left and right cataract extraction in 2011) Hx Glaucoma: Yes - RENAL Hx Chronic Kidney Disease: Yes - ENDOCRINE/METABOLIC Hx Endocrine Disorders: Yes Hx Diabetes Mellitus Type 2: Yes - HEMATOLOGICAL/ONCOLOGICAL Hx Anemia: Yes - INTEGUMENTARY Hx Dermatological Problems: No - MUSCULOSKELETAL/RHEUMATOLOGICAL Hx Arthritis: Yes Hx Falls: No - GASTROINTESTINAL Hx Gastritis: Yes - GENITOURINARY/GYNECOLOGICAL Hx Genitourinary Disorders: No - PSYCHIATRIC Hx Substance Use: No - SURGICAL HISTORY Hx Coronary Artery Bypass Graft: Yes (CABG x 4 on 03/06/2009.) - ANESTHESIA Hx Anesthesia: Yes Hx Anesthesia Reactions: No Hx Malignant Hyperthermia: No Meds Allergies/Adverse Reactions: Allergies Allergy/AdvReac Type Severity Reaction Status Date / Time No Known Allergies Allergy Verified 02/27/16 12:51 - Medications Medications: Current Medications Amlodipine Besylate (Norvasc) 5 mg PO DAILY [facility] Last Admin: 02/04/17 14:51 Dose: Not Given Apixaban (Eliquis) 2.5 mg PO BID [facility] Last Admin: 02/05/17 11:54 Dose: 2.5 mg Cilostazol (Pletal) 100 mg PO BID [facility] Last Admin: 02/05/17 11:55 Dose: 100 mg Cinacalcet (Sensipar) 30 mg PO DAILY [facility] Last Admin: 02/05/17 11:55 Dose: 30 mg Clopidogrel Bisulfate (Plavix) 75 mg PO DAILY [facility] Last Admin: 02/05/17 11:55 Dose: 75 mg Diltiazem HCl (Cardizem) 60 mg PO QID [facility] Last Admin: 02/04/17 21:17 Dose: Not Given Famotidine (Pepcid) 20 mg PO DAILY [facility] Last Admin: 02/05/17 11:54 Dose: 20 mg Moxifloxacin HCl (Avelox Iv 400mg/250ml Ns) 400 mg in 250 mls @ 167 mls/hr IVPB Q24H [facility] Last Admin: 02/05/17 12:55 Dose: 167 mls/hr Insulin Glargine (Lantus) 50 unit SC BID [facility] Last Admin: 02/05/17 09:16 Dose: Not Given Pregabalin (Lyrica) 25 mg PO TID [facility] Last Admin: 02/05/17 14:11 Dose: Not Given Rosuvastatin Calcium (Crestor) 10 mg PO HS [facility] Last Admin: 02/04/17 21:10 Dose: 10 mg Sevelamer Carbonate (Renvela) 800 mg PO TID [facility] Last Admin: 02/05/17 14:11 Dose: Not Given Physical Exam - Constitutional Appears: Non-toxic, No Acute Distress - Head Exam Head Exam: ATRAUMATIC, NORMAL INSPECTION, NORMOCEPHALIC - ENT Exam ENT Exam: Mucous Membranes Dry - Respiratory Exam Respiratory Exam: Decreased Breath Sounds, Rhonchi - Cardiovascular Exam Cardiovascular Exam: Tachycardia, +S1, +S2 - GI/Abdominal Exam GI & Abdominal Exam: Normal Bowel Sounds, Soft. absent: Tenderness - Extremities Exam Extremities exam: Positive for: pedal edema (Trace). Negative for: calf tenderness - Neurological Exam Neurological exam: Alert - Skin Skin Exam: Intact, Normal Color, Warm Results - Vital Signs Recent Vital Signs: Last Vital Signs Temp 98.2 F 02/05/17 13:25 Pulse 108 H 02/05/17 14:29 Resp 22 02/05/17 14:29 BP 102/70 02/05/17 14:29 Pulse Ox 100 02/05/17 13:25 - Labs Result Diagrams: 02/05/17 12:00 02/05/17 12:00 Labs: Laboratory Results - last 24 hr 02/04/17 02/04/17 02/04/17 16:40 17:10 20:52 WBC RBC Hgb Hct MCV MCH MCHC RDW Plt Count MPV Neut % (Auto) Lymph % (Auto) [place] % (Auto) Eos % (Auto) Baso % (Auto) Neut # Lymph # [place] # Eos # Baso # Neutrophils % (Manual) Band Neutrophils % Lymphocytes % (Manual) Monocytes % (Manual) Nucleated RBC % Platelet Estimate Large Platelets Giant Platelets Hypochromasia (manual) Poikilocytosis (manual Basophilic Stippling Anisocytosis (manual) Ovalocytes Puncture Site pCO2 pO2 HCO3 ABG pH ABG Total CO2 ABG O2 Saturation ABG Base Excess Nadir Test ABG Potassium A-a O2 Difference Respiratory Index Glucose Lactate FiO2 Sodium Potassium Chloride Carbon Dioxide Anion Gap BUN Creatinine Est GFR ( Amer) Est GFR (Non-Af Amer) POC Glucose (mg/dL) 45 L 71 255 H Random Glucose Calcium Phosphorus Magnesium Total Bilirubin Direct Bilirubin AST ALT Alkaline Phosphatase Total Creatine Kinase CK-MB (Mass) Troponin I, Quant Total Protein Albumin Globulin Albumin/Globulin Ratio Procalcitonin Arterial Blood Potassium IgG 02/05/17 02/05/17 02/05/17 06:09 07:29 07:29 WBC 6.5 RBC 3.15 L Hgb 10.2 L Hct 31.5 L MCV 99.9 H MCH 32.3 H MCHC 32.3 L RDW 16.1 H Plt Count 104 L D MPV 9.3 Neut % (Auto) 82.9 H Lymph % (Auto) 7.0 L [place] % (Auto) 9.5 Eos % (Auto) 0.3 Baso % (Auto) 0.3 Neut # 5.4 Lymph # 0.5 L [place] # 0.6 Eos # 0.0 Baso # 0.0 Neutrophils % (Manual) 83 H Band Neutrophils % Lymphocytes % (Manual) 8 L Monocytes % (Manual) 9 Nucleated RBC % 4 H Platelet Estimate Slightly decreased L Large Platelets Giant Platelets Hypochromasia (manual) Slight Poikilocytosis (manual Slight Basophilic Stippling Anisocytosis (manual) Slight Ovalocytes Slight Puncture Site pCO2 pO2 HCO3 ABG pH ABG Total CO2 ABG O2 Saturation ABG Base Excess Nadir Test ABG Potassium A-a O2 Difference Respiratory Index Glucose Lactate FiO2 Sodium 135 Potassium 4.3 Chloride 94 L Carbon Dioxide 33 H Anion Gap 12 BUN 27 H Creatinine 4.0 H Est GFR ( Amer) 13 Est GFR (Non-Af Amer) 11 POC Glucose (mg/dL) 204 H Random Glucose 173 H Calcium 7.9 L Phosphorus Magnesium Total Bilirubin 0.9 Direct Bilirubin 0.9 H AST 1003 H ALT 661 H D Alkaline Phosphatase 99 Total Creatine Kinase CK-MB (Mass) Troponin I, Quant Total Protein 6.2 L Albumin 3.3 L Globulin 2.9 Albumin/Globulin Ratio 1.1 Procalcitonin Arterial Blood Potassium IgG 02/05/17 02/05/17 02/05/17 10:01 10:03 11:17 WBC RBC Hgb Hct MCV MCH MCHC RDW Plt Count MPV Neut % (Auto) Lymph % (Auto) [place] % (Auto) Eos % (Auto) Baso % (Auto) Neut # Lymph # [place] # Eos # Baso # Neutrophils % (Manual) Band Neutrophils % Lymphocytes % (Manual) Monocytes % (Manual) Nucleated RBC % Platelet Estimate Large Platelets Giant Platelets Hypochromasia (manual) Poikilocytosis (manual Basophilic Stippling Anisocytosis (manual) Ovalocytes Puncture Site Rra pCO2 66 H pO2 109 H HCO3 28.7 H ABG pH 7.31 L ABG Total CO2 35.2 H ABG O2 Saturation 99.1 H ABG Base Excess 4.8 H Nadir Test Na ABG Potassium 3.9 A-a O2 Difference 522.0 Respiratory Index 4.8 Glucose 214 H Lactate 1.0 FiO2 100.0 Sodium 133.0 Potassium Chloride 98.0 Carbon Dioxide Anion Gap BUN Creatinine Est GFR ( Amer) Est GFR (Non-Af Amer) POC Glucose (mg/dL) 279 H 214 H Random Glucose Calcium Phosphorus Magnesium Total Bilirubin Direct Bilirubin AST ALT Alkaline Phosphatase Total Creatine Kinase CK-MB (Mass) Troponin I, Quant Total Protein Albumin Globulin Albumin/Globulin Ratio Procalcitonin Arterial Blood Potassium 3.9 IgG 02/05/17 02/05/17 02/05/17 12:00 12:00 12:00 WBC 6.2 RBC 3.26 L Hgb 10.4 L Hct 32.8 L MCV 100.6 H MCH 32.0 H MCHC 31.9 L RDW 16.1 H Plt Count 107 L MPV 9.1 Neut % (Auto) 85.4 H Lymph % (Auto) 5.0 L [place] % (Auto) 8.7 Eos % (Auto) 0.2 Baso % (Auto) 0.7 Neut # 5.3 Lymph # 0.3 L [place] # 0.5 Eos # 0.0 Baso # 0.0 Neutrophils % (Manual) 85 H Band Neutrophils % 2 Lymphocytes % (Manual) 7 L Monocytes % (Manual) 6 Nucleated RBC % Platelet Estimate Slightly decreased L Large Platelets Present Giant Platelets Present Hypochromasia (manual) Poikilocytosis (manual Slight Basophilic Stippling Slight Anisocytosis (manual) Slight Ovalocytes Slight Puncture Site pCO2 pO2 HCO3 ABG pH ABG Total CO2 ABG O2 Saturation ABG Base Excess Nadir Test ABG Potassium A-a O2 Difference Respiratory Index Glucose Lactate FiO2 Sodium 134 Potassium 4.1 Chloride 93 L Carbon Dioxide 31 H Anion Gap 14 BUN 28 H Creatinine 4.3 H Est GFR ( Amer) 12 Est GFR (Non-Af Amer) 10 POC Glucose (mg/dL) Random Glucose 280 H Calcium 8.0 L Phosphorus 3.5 Magnesium 2.2 Total Bilirubin 0.9 Direct Bilirubin AST 858 H ALT 667 H Alkaline Phosphatase 104 Total Creatine Kinase 229 H CK-MB (Mass) 3.06 Troponin I, Quant 1.5600 H* Total Protein 6.5 Albumin 3.5 Globulin 3.1 Albumin/Globulin Ratio 1.1 Procalcitonin Arterial Blood Potassium IgG 946.7 02/05/17 12:00 WBC RBC Hgb Hct MCV MCH MCHC RDW Plt Count MPV Neut % (Auto) Lymph % (Auto) [place] % (Auto) Eos % (Auto) Baso % (Auto) Neut # Lymph # [place] # Eos # Baso # Neutrophils % (Manual) Band Neutrophils % Lymphocytes % (Manual) Monocytes % (Manual) Nucleated RBC % Platelet Estimate Large Platelets Giant Platelets Hypochromasia (manual) Poikilocytosis (manual Basophilic Stippling Anisocytosis (manual) Ovalocytes Puncture Site pCO2 pO2 HCO3 ABG pH ABG Total CO2 ABG O2 Saturation ABG Base Excess Nadir Test ABG Potassium A-a O2 Difference Respiratory Index Glucose Lactate FiO2 Sodium Potassium Chloride Carbon Dioxide Anion Gap BUN Creatinine Est GFR ( Amer) Est GFR (Non-Af Amer) POC Glucose (mg/dL) Random Glucose Calcium Phosphorus Magnesium Total Bilirubin Direct Bilirubin AST ALT Alkaline Phosphatase Total Creatine Kinase CK-MB (Mass) Troponin I, Quant Total Protein Albumin Globulin Albumin/Globulin Ratio Procalcitonin 1.39 H Arterial Blood Potassium IgG Assessment & Plan (1) Congestive heart failure Assessment and Plan: BNP elevated, likely secondary to ESRD. Dialysis tomorrow Elevated troponin on admission likely secondary to CHF and ESRD Elevation in troponin after ELL TEACHER likely secondary to hypotensive episode Echocardiogram ordered Pt will need cardiac catheterization Status: Acute
[2017-02-06 06:38] LABS: BASO % 0.5 % (0.0-2.0); EOS # 0.1 K/uL (0.0-0.7); EOS % 1.8 % (0.0-4.0); HEMOGLOBIN 9.9 g/dL (11.0-16.0); LYMPH # 0.5 K/uL (1.0-4.3); LYMPH % 8.7 % (20.0-40.0); MEAN CELL VOLUME 100.3 fL (81.0-99.0); MEAN CORPUSCULAR HEMOGLOBIN 32.5 pg (27.0-31.0); MEAN CORPUSCULAR HGB CONC 32.4 g/dL (33.0-37.0); MEAN PLATELET VOLUME 9.2 fL (7.2-11.7); MONO # 0.5 K/uL (0.0-0.8); MONO % 9.6 % (0.0-10.0); NEUT # 4.5 K/uL (1.8-7.0); NEUT % 79.4 % (50.0-75.0); NRBC % 2.8 % (0.0-2.0); PLATELET COUNT 105 K/uL (130-400); RBC 3.03 Mil/uL (3.80-5.20); RED CELL DISTRIBUTION WIDTH 16.2 % (11.5-14.5); WHITE BLOOD COUNT 5.6 K/uL (4.8-10.8)
[2017-02-06 07:44] LABS: ALBUMIN 3.2 g/dL (3.5-5.0)
[2017-02-06 07:47] LABS: ALB/GLOB RATIO 1.1 (1.0-2.1); BILIRUBIN,DIRECT 0.9 mg/dL (0.0-0.4)
[2017-02-06] MEDS ORDERED: Moxifloxacin IV 400mg/250ml NS 400 MG/250 ML BAG IVPB SCH (09:00)
--- NOTE | 2017-02-06 09:38 | CP.PCM.PN ---
Subjective - Date & Time of Evaluation Date of Evaluation: 02/06/17 Time of Evaluation: 08:45 - Subjective Subjective: Medicine Progress Note- Dr Zina Peterson's service Patient seen and examined while in hemodialysis. Patient is AAOx3 and states that she feels tired. Patient complains of chronic cough. Denies fever, chest pain, shortness of breath, leg pain and abdominal pain. Objective - Vital Signs/Intake and Output Vital Signs (last 24 hours): Temp Pulse Resp BP Pulse Ox 98.8 F 92 H 20 109/70 100 02/06/17 08:30 02/06/17 08:30 02/06/17 08:30 02/06/17 08:30 02/06/17 08:30 - Medications Medications: Current Medications Amlodipine Besylate (Norvasc) 5 mg PO DAILY [facility] Last Admin: 02/04/17 14:51 Dose: Not Given Apixaban (Eliquis) 2.5 mg PO BID [facility] Last Admin: 02/05/17 18:00 Dose: 2.5 mg Cilostazol (Pletal) 100 mg PO BID [facility] Last Admin: 02/05/17 18:00 Dose: 100 mg Cinacalcet (Sensipar) 30 mg PO DAILY [facility] Last Admin: 02/05/17 11:55 Dose: 30 mg Clopidogrel Bisulfate (Plavix) 75 mg PO DAILY [facility] Last Admin: 02/05/17 11:55 Dose: 75 mg Diltiazem HCl (Cardizem) 60 mg PO QID [facility] Last Admin: 02/04/17 21:17 Dose: Not Given Famotidine (Pepcid) 20 mg PO DAILY [facility] Last Admin: 02/05/17 11:54 Dose: 20 mg Moxifloxacin HCl (Avelox Iv 400mg/250ml Ns) 400 mg in 250 mls @ 167 mls/hr IVPB Q24H [facility] Last Admin: 02/05/17 12:55 Dose: 167 mls/hr Insulin Glargine (Lantus) 50 unit SC BID [facility] Last Admin: 02/05/17 09:16 Dose: Not Given Pregabalin (Lyrica) 25 mg PO TID [facility] Last Admin: 02/05/17 18:00 Dose: 25 mg Rosuvastatin Calcium (Crestor) 10 mg PO HS [facility] Last Admin: 02/05/17 21:50 Dose: Not Given Sevelamer Carbonate (Renvela) 800 mg PO TID [facility] Last Admin: 02/05/17 18:00 Dose: 800 mg - Labs Labs: 02/06/17 06:18 02/05/17 12:00 PT 19.3 SECONDS (9.7-12.2) H 02/04/17 05:15 INR 1.7 02/04/17 05:15 APTT 35 SECONDS (21-34) H 02/04/17 05:15 - Constitutional Appears: Non-toxic, No Acute Distress - Head Exam Head Exam: ATRAUMATIC, NORMOCEPHALIC - Eye Exam Eye Exam: EOMI - ENT Exam ENT Exam: Mucous Membranes Moist - Neck Exam Neck Exam: Normal Inspection Additional comments: No JVD - Respiratory Exam Respiratory Exam: Clear to Ausculation Bilateral, NORMAL BREATHING PATTERN. absent: Accessory Muscle Use, Rhonchi, Wheezes, Respiratory Distress Additional comments: on nasal canula - Cardiovascular Exam Cardiovascular Exam: Irregular Rhythm. absent: Tachycardia, Murmur - GI/Abdominal Exam GI & Abdominal Exam: Soft, Normal Bowel Sounds. absent: Distended, Firm, Tenderness - Extremities Exam Extremities Exam: Full ROM, Normal Inspection. absent: Pedal Edema - Neurological Exam Neurological Exam: Alert, Awake, Oriented x3 - Psychiatric Exam Psychiatric exam: Flat Affect - Skin Skin Exam: Dry, Intact, Normal Color, Warm Assessment and Plan - Assessment and Plan (Free Text) Assessment: 1. CHF exacerbation Monitor on telemetry BNP [id number] Seo consulted- per note, BNP likely elevated secondary to ESRD f/u ECHO 2. Elevated troponins ROMIs 0.864--> 1.56 EKG on admission showed A fib @72bpm, ST and T wave changes f/u 3rd DIYA [place] Dr Seo consulted- Per earrings fabricator note, elevated troponin likely secondary to hypotension. Patient will need cardiac catheterization. 3. A fib Rate controlled CHADS2-VASC score 7 points Eliquis 2.5mg PO BID Cardizem 60mg PO QID 4. CAD s/p PCI and CABG Crestor 10mg PO HS Plavix 75mg PO daily f/u cardiac cath 5. Hypotension Patient's bp has been low since admission. Evaluated by machine farmworker Dr Robert yesterday. BP meds Norvasc and Cardizem on holding parameters. Monitor vitals q4h 6. Transaminitis AST 471, ALT [address] Burt consulted- help appreciated U/S noted with hepatic steatosis; patent portal vasculature Check Hepatitis panel Check autoimmune panel: SALOMÓN, AMA, SMA, LKM-Ab, IgG level 7. ESRD on HD Nephro Dr Barroso consulted Continue HD MWF 8. DM BS in 200s Accuchecks ISS Lantus 50u SC BID 9. Prophylactic Measures SCDs Junior Tam PT eval- will f/u recommendations Discharge planning to [facility] All orders per Dr Zina Peterson. Will discuss with attending.
--- NOTE | 2017-02-06 10:03 | CP.PCM.PN ---
<RoxanaeliceoariAttila - Last Filed: 02/06/17 10:00> Subjective - Date & Time of Evaluation Date of Evaluation: 02/06/17 Time of Evaluation: 07:00 - Subjective Subjective: PGY4 GI Fellow Progress Note Patient seen and examined bedside this morning. The patient states that she "cannot talk" and remains dyspneic, currently on BIPAP. No further events overnight. No abdominal pain, nausea, vomiting. 12 system ROS performed and negative except where stated. Objective - Vital Signs/Intake and Output Vital Signs (last 24 hours): Temp Pulse Resp BP Pulse Ox 97.9 F 82 16 92/49 L 99 02/06/17 08:55 02/06/17 08:55 02/06/17 08:55 02/06/17 09:50 02/06/17 08:55 - Medications Medications: Current Medications Amlodipine Besylate (Norvasc) 5 mg PO DAILY [facility] Last Admin: 02/04/17 14:51 Dose: Not Given Apixaban (Eliquis) 2.5 mg PO BID [facility] Last Admin: 02/05/17 18:00 Dose: 2.5 mg Cilostazol (Pletal) 100 mg PO BID [facility] Last Admin: 02/05/17 18:00 Dose: 100 mg Cinacalcet (Sensipar) 30 mg PO DAILY [facility] Last Admin: 02/05/17 11:55 Dose: 30 mg Clopidogrel Bisulfate (Plavix) 75 mg PO DAILY [facility] Last Admin: 02/05/17 11:55 Dose: 75 mg Diltiazem HCl (Cardizem) 60 mg PO QID [facility] Last Admin: 02/04/17 21:17 Dose: Not Given Famotidine (Pepcid) 20 mg PO DAILY [facility] Last Admin: 02/05/17 11:54 Dose: 20 mg Moxifloxacin HCl (Avelox Iv 400mg/250ml Ns) 400 mg in 250 mls @ 167 mls/hr IVPB Q24H [facility] Last Admin: 02/05/17 12:55 Dose: 167 mls/hr Insulin Glargine (Lantus) 50 unit SC BID [facility] Last Admin: 02/05/17 09:16 Dose: Not Given Pregabalin (Lyrica) 25 mg PO TID [facility] Last Admin: 02/05/17 18:00 Dose: 25 mg Rosuvastatin Calcium (Crestor) 10 mg PO HS [facility] Last Admin: 02/05/17 21:50 Dose: Not Given Sevelamer Carbonate (Renvela) 800 mg PO TID [facility] Last Admin: 02/05/17 18:00 Dose: 800 mg - Labs Labs: 02/06/17 06:18 02/05/17 12:00 PT 19.3 SECONDS (9.7-12.2) H 02/04/17 05:15 INR 1.7 02/04/17 05:15 APTT 35 SECONDS (21-34) H 02/04/17 05:15 - Constitutional Appears: No Acute Distress, Chronically Ill - Eye Exam Eye Exam: EOMI, PERRL - ENT Exam ENT Exam: Mucous Membranes Dry - Respiratory Exam Respiratory Exam: Decreased Breath Sounds, Rales. absent: Rhonchi, Wheezes - Cardiovascular Exam Cardiovascular Exam: Irregular Rhythm, +S1, +S2 Additional comments: regular rate - GI/Abdominal Exam GI & Abdominal Exam: Soft, Normal Bowel Sounds. absent: Distended, Firm, Guarding, Rigid, Tenderness, Organomegaly - Extremities Exam Extremities Exam: absent: Pedal Edema Additional comments: B/L LE edema - Neurological Exam Neurological Exam: Alert, Awake. absent: Oriented x3 - Psychiatric Exam Psychiatric exam: Normal Affect, Normal Mood - Skin Skin Exam: Dry, Warm Assessment and Plan - Assessment and Plan (Free Text) Assessment: Patient is a 76yo female with PMHx significant for atrial fibrillation on Eliquis, CAD s/p PCI and 4 vessel CABG on Plavix, ESRD on HD MWF, DM, HTN, HLD who presented to the ED with shortness of breath -Dyspnea, likely 2/2 acute diastolic CHF exacerbation -ESRD on HD -Elevated LFTs, hepatocellular pattern -CAD -Atrial fibrillation -DM -HTN -Hyperlipidemia Plan: -Suspect elevated LFTs 2/2 hepatic congestion from acute CHF exacerbation -Pt to have HD today and continue MWF schedule; nephro following -Recommend echocardiogram -Pt may have cardiac catheterization; plan per cardiology -Troponin was uptrending when last checked -Check Hepatitis panel, ordered yesterday -Check autoimmune panel: SALOMÓN, AMA, SMA, LKM-Ab -IgG level WNL -Recommend CT head given altered mentation <Ti Love - Last Filed: 02/06/17 10:13> Objective - Vital Signs/Intake and Output Vital Signs (last 24 hours): Temp Pulse Resp BP Pulse Ox 97.9 F 82 16 92/49 L 99 02/06/17 08:55 02/06/17 08:55 02/06/17 08:55 02/06/17 09:50 02/06/17 08:55 - Medications Medications: Current Medications Amlodipine Besylate (Norvasc) 5 mg PO DAILY [facility] Last Admin: 02/04/17 14:51 Dose: Not Given Apixaban (Eliquis) 2.5 mg PO BID [facility] Last Admin: 02/05/17 18:00 Dose: 2.5 mg Cilostazol (Pletal) 100 mg PO BID [facility] Last Admin: 02/05/17 18:00 Dose: 100 mg Cinacalcet (Sensipar) 30 mg PO DAILY [facility] Last Admin: 02/05/17 11:55 Dose: 30 mg Clopidogrel Bisulfate (Plavix) 75 mg PO DAILY [facility] Last Admin: 02/05/17 11:55 Dose: 75 mg Diltiazem HCl (Cardizem) 60 mg PO QID [facility] Last Admin: 02/04/17 21:17 Dose: Not Given Famotidine (Pepcid) 20 mg PO DAILY [facility] Last Admin: 02/05/17 11:54 Dose: 20 mg Moxifloxacin HCl (Avelox Iv 400mg/250ml Ns) 400 mg in 250 mls @ 167 mls/hr IVPB Q24H [facility] Last Admin: 02/05/17 12:55 Dose: 167 mls/hr Insulin Glargine (Lantus) 50 unit SC BID [facility] Last Admin: 02/05/17 09:16 Dose: Not Given Pregabalin (Lyrica) 25 mg PO TID [facility] Last Admin: 02/05/17 18:00 Dose: 25 mg Rosuvastatin Calcium (Crestor) 10 mg PO HS [facility] Last Admin: 02/05/17 21:50 Dose: Not Given Sevelamer Carbonate (Renvela) 800 mg PO TID [facility] Last Admin: 02/05/17 18:00 Dose: 800 mg - Labs Labs: 02/06/17 06:18 02/05/17 12:00 PT 19.3 SECONDS (9.7-12.2) H 02/04/17 05:15 INR 1.7 02/04/17 05:15 APTT 35 SECONDS (21-34) H 02/04/17 05:15 Attending/Attestation - Attestation I have personally seen and examined this patient.: Yes I have fully participated in the care of the patient.: Yes I have reviewed all pertinent clinical information, including history, physical exam and plan: Yes Notes (Text): 02/06/17 10:11 76 year old female with h/o Afib on Eliquis, CAD s/p CABG/PCI, CHF, ESRD on HD, DM, HTN, HLD admitted with SOB, also with elevated transaminases. 1. Elevated LFTs Plan: -elevated lfts are likely product support sales representative of congestive hepatopathy in the setting of severe cardiac disease -await echo -agree with plans for HD today -evaluate for other chronic liver disease like autoimmune and viral hepatitis as above -trend lfts daily
[2017-02-06 10:15] LABS: ANISOCYTOSIS SLIGHT; BANDS 1 % (0-2); EOSINOPHIL 1 % (0-4); LYMPHOCYTE 3 % (20-40); MONOCYTE 6 % (0-10); NEUTROPHIL 89 % (50-75); PLATELET ESTIMATE SLIGHTLY DECREASED (NORMAL); TOTAL CELLS COUNTED 100
[2017-02-06 10:16] LABS: POLYCHROMIC SLIGHT
[2017-02-06 10:17] LABS: OVALOCYTES SLIGHT
[2017-02-06] MEDS: Cilostazol 100 mg Tab UD PO SCH (11:00)
--- NOTE | 2017-02-06 11:28 | CP.PCM.PN ---
Subjective - Date & Time of Evaluation Date of Evaluation: 02/06/17 Time of Evaluation: 11:00 - Subjective Subjective: clinically same Objective - Vital Signs/Intake and Output Vital Signs (last 24 hours): Temp Pulse Resp BP Pulse Ox 97.9 F 82 16 92/49 L 99 02/06/17 08:55 02/06/17 08:55 02/06/17 08:55 02/06/17 09:50 02/06/17 08:55 - Medications Medications: Current Medications Amlodipine Besylate (Norvasc) 5 mg PO DAILY [facility] Last Admin: 02/04/17 14:51 Dose: Not Given Apixaban (Eliquis) 2.5 mg PO BID [facility] Last Admin: 02/05/17 18:00 Dose: 2.5 mg Cilostazol (Pletal) 100 mg PO BID [facility] Last Admin: 02/05/17 18:00 Dose: 100 mg Cinacalcet (Sensipar) 30 mg PO DAILY [facility] Last Admin: 02/05/17 11:55 Dose: 30 mg Clopidogrel Bisulfate (Plavix) 75 mg PO DAILY [facility] Last Admin: 02/05/17 11:55 Dose: 75 mg Diltiazem HCl (Cardizem) 60 mg PO QID [facility] Last Admin: 02/04/17 21:17 Dose: Not Given Famotidine (Pepcid) 20 mg PO DAILY [facility] Last Admin: 02/05/17 11:54 Dose: 20 mg Moxifloxacin HCl (Avelox Iv 400mg/250ml Ns) 400 mg in 250 mls @ 167 mls/hr IVPB Q24H [facility] Last Admin: 02/05/17 12:55 Dose: 167 mls/hr Insulin Glargine (Lantus) 50 unit SC BID [facility] Last Admin: 02/05/17 09:16 Dose: Not Given Midodrine (Proamatine) 2.5 mg PO TID [facility] Pregabalin (Lyrica) 25 mg PO TID [facility] Last Admin: 02/05/17 18:00 Dose: 25 mg Rosuvastatin Calcium (Crestor) 10 mg PO HS [facility] Last Admin: 02/05/17 21:50 Dose: Not Given Sevelamer Carbonate (Renvela) 800 mg PO TID [facility] Last Admin: 02/05/17 18:00 Dose: 800 mg - Labs Labs: 02/06/17 06:18 06/29/17 12:00 PT 19.3 SECONDS (9.7-12.2) H 02/04/17 05:15 INR 1.7 02/04/17 05:15 APTT 35 SECONDS (21-34) H 02/04/17 05:15 - Constitutional Appears: Well - Head Exam Head Exam: ATRAUMATIC, NORMAL INSPECTION, NORMOCEPHALIC - Eye Exam Eye Exam: EOMI, Normal appearance, PERRL Pupil Exam: NORMAL ACCOMODATION, PERRL - ENT Exam ENT Exam: Mucous Membranes Moist, Normal Exam - Neck Exam Neck Exam: Full ROM, Normal Inspection. absent: Lymphadenopathy - Respiratory Exam Respiratory Exam: Decreased Breath Sounds - Cardiovascular Exam Cardiovascular Exam: REGULAR RHYTHM, +S1, +S2 - GI/Abdominal Exam GI & Abdominal Exam: Soft, Diminished Bowel Sounds - Rectal Exam Rectal Exam: Deferred
--- NOTE | 2017-02-06 11:39 | CP.PCM.CON ---
<Tiara Trevino - Last Filed: 02/06/17 17:28> History of Present Illness - History of Present Illness History of Present Illness: ICU Consult Note Reason for consult: hypotension and respiratory distress 76 y/o F with PMH of A-fib on eliquis, CAD, ESRD on HD MWF, HTN, DM, and HLD initially presented on 02/04/17 for shortness of breath. Pt is a poor historian and much of information was gathered from prior medical records. Pt has been minimally arousable since arriving to ED. Pt stated she was short of breath, but was unable to establish a time frame of her symptoms. This morning during evaluation patient was lethargic and only answering yes and no questions. BNP 69527 and troponins 0.864--> 1.56 were elevated on admission. Patient had PIECE CUTTER at 11:30 due to hypotension. Pt had BP of 82/41 and was minimally arousable and given 500cc bolus and placed on BiPAP. She clinically improved and was sitting up in bed on reexamination and was deemed not a candidate for ICU at that time. This AM 02/06 at 11:10am patient had another PIECE CUTTER while she was receiving HD for hypotension and respiratory distress. Patient was given 500cc NS bolus and placed on BiPAP. Patient was started on midodrine 2.5mg po bid. Patient was transferred to ICU. BP improved and patient was satting 100% on BiPAP. Patient was restarted on HD and BP is tolerating. Denies any acute complaints on ROS. PMH: A-fib, CAD, ESRD, HTN, DM, and HLD PSH: CABG Family Hx: HTN Social Hx: Denies tobacco, alcohol, or illicit drug use Allergies: NKDA Review of Systems - Constitutional Constitutional: As Per HPI. absent: Fever - EENT Eyes: As Per HPI. absent: Blurred Vision - Cardiovascular Cardiovascular: As Per HPI. absent: Chest Pain, Dyspnea on Exertion, Edema - Respiratory Respiratory: As Per HPI, Dyspnea. absent: Cough - Gastrointestinal Gastrointestinal: As Per HPI, Abdominal Pain. absent: Constipation, Diarrhea, Nausea, Vomiting Additional comments: hungry - Musculoskeletal Musculoskeletal: As Per HPI. absent: Numbness, Tingling - Integumentary Integumentary: As Per HPI. absent: Rash - Neurological Neurological: As Per HPI. absent: Dizziness, Numbness, Tingling Past Patient History - Infectious Disease Hx of Infectious Diseases: None - Past Medical History & Family History Past Medical History?: Yes - Past Social History Smoking Status: Never Smoked Chewing Tobacco Use: No Cigar Use: No Alcohol: None Drugs: Denies Home Situation {Lives}: With Family - CARDIAC Hx Atrial Fibrillation: Yes Hx Cardia Arrhythmia: Yes Hx Hypercholesterolemia: Yes Hx Hypertension: Yes - PULMONARY Hx Respiratory Disorders: Yes Hx Pulmonary Edema: Yes - NEUROLOGICAL Hx Neurological Disorder: Yes Hx Dizziness: Yes - HEENT Hx HEENT Problems: Yes Hx Cataracts: Yes (Left and right cataract extraction in 2012) Hx Glaucoma: Yes - RENAL Hx Chronic Kidney Disease: Yes - ENDOCRINE/METABOLIC Hx Endocrine Disorders: Yes Hx Diabetes Mellitus Type 2: Yes - HEMATOLOGICAL/ONCOLOGICAL Hx Anemia: Yes - INTEGUMENTARY Hx Dermatological Problems: No - MUSCULOSKELETAL/RHEUMATOLOGICAL Hx Arthritis: Yes Hx Falls: No - GASTROINTESTINAL Hx Gastritis: Yes - GENITOURINARY/GYNECOLOGICAL Hx Genitourinary Disorders: No - PSYCHIATRIC Hx Substance Use: No - SURGICAL HISTORY Hx Coronary Artery Bypass Graft: Yes (CABG x 4 on 03/06/2009.) - ANESTHESIA Hx Anesthesia: Yes Hx Anesthesia Reactions: No Hx Malignant Hyperthermia: No Meds Allergies/Adverse Reactions: Allergies Allergy/AdvReac Type Severity Reaction Status Date / Time No Known Allergies Allergy Verified 02/27/16 12:51 - Medications Medications: Current Medications Amlodipine Besylate (Norvasc) 5 mg PO DAILY [facility] Last Admin: 02/04/17 14:51 Dose: Not Given Apixaban (Eliquis) 2.5 mg PO BID [facility] Last Admin: 02/05/17 18:00 Dose: 2.5 mg Cilostazol (Pletal) 100 mg PO BID [facility] Last Admin: 02/05/17 18:00 Dose: 100 mg Cinacalcet (Sensipar) 30 mg PO DAILY [facility] Last Admin: 02/05/17 11:55 Dose: 30 mg Clopidogrel Bisulfate (Plavix) 75 mg PO DAILY [facility] Last Admin: 02/05/17 11:55 Dose: 75 mg Diltiazem HCl (Cardizem) 60 mg PO QID [facility] Last Admin: 02/04/17 21:17 Dose: Not Given Famotidine (Pepcid) 20 mg PO DAILY [facility] Last Admin: 02/05/17 11:54 Dose: 20 mg Moxifloxacin HCl (Avelox Iv 400mg/250ml Ns) 400 mg in 250 mls @ 167 mls/hr IVPB Q24H [facility] Last Admin: 02/05/17 12:55 Dose: 167 mls/hr Insulin Glargine (Lantus) 50 unit SC BID [facility] Last Admin: 02/05/17 09:16 Dose: Not Given Midodrine (Proamatine) 2.5 mg PO TID [facility] Pregabalin (Lyrica) 25 mg PO TID [facility] Last Admin: 02/05/17 18:00 Dose: 25 mg Rosuvastatin Calcium (Crestor) 10 mg PO HS [facility] Last Admin: 02/05/17 21:50 Dose: Not Given Sevelamer Carbonate (Renvela) 800 mg PO TID [facility] Last Admin: 02/05/17 18:00 Dose: 800 mg Physical Exam - Constitutional Appears: No Acute Distress - Head Exam Head Exam: ATRAUMATIC, NORMAL INSPECTION, NORMOCEPHALIC - Eye Exam Eye Exam: EOMI, Normal appearance. absent: Conjunctival injection, Scleral icterus Pupil Exam: NORMAL ACCOMODATION - ENT Exam ENT Exam: Mucous Membranes Moist - Neck Exam Neck exam: Positive for: Normal Inspection - Respiratory Exam Respiratory Exam: Rhonchi. absent: Rales, Wheezes Additional comments: on BiPAP - Cardiovascular Exam Cardiovascular Exam: Irregular Rhythm, +S1, +S2 - GI/Abdominal Exam GI & Abdominal Exam: Normal Bowel Sounds, Soft - Extremities Exam Extremities exam: Positive for: normal inspection. Negative for: pedal edema - Neurological Exam Neurological exam: Alert, Oriented x3 - Psychiatric Exam Psychiatric exam: Normal Affect, Normal Mood - Skin Skin Exam: Dry, Intact, Normal Color, Warm Results - Vital Signs Recent Vital Signs: Last Vital Signs Temp 97.9 F 02/06/17 08:55 Pulse 82 02/06/17 08:55 Resp 16 02/06/17 08:55 BP 92/49 L 02/06/17 09:50 Pulse Ox 99 02/06/17 08:55 - Labs Result Diagrams: 02/06/17 06:18 02/05/17 12:00 Labs: Laboratory Results - last 24 hr 02/05/17 02/05/17 02/05/17 11:17 12:00 12:00 WBC 6.2 RBC 3.26 L Hgb 10.4 L Hct 32.8 L MCV 100.6 H MCH 32.0 H MCHC 31.9 L RDW 16.1 H Plt Count 107 L MPV 9.1 Neut % (Auto) 85.4 H Lymph % (Auto) 5.0 L [place] % (Auto) 8.7 Eos % (Auto) 0.2 Baso % (Auto) 0.7 Neut # 5.3 Lymph # 0.3 L [place] # 0.5 Eos # 0.0 Baso # 0.0 Neutrophils % (Manual) 85 H Band Neutrophils % 2 Lymphocytes % (Manual) 7 L Monocytes % (Manual) 6 Eosinophils % (Manual) Platelet Estimate Slightly decreased L Large Platelets Present Giant Platelets Present Polychromasia Poikilocytosis (manual Slight Basophilic Stippling Slight Anisocytosis (manual) Slight Macrocytosis (manual) Ovalocytes Slight Sodium Potassium Chloride Carbon Dioxide Anion Gap BUN Creatinine Est GFR ( Amer) Est GFR (Non-Af Amer) POC Glucose (mg/dL) 214 H Random Glucose Calcium Phosphorus Magnesium Total Bilirubin Direct Bilirubin AST ALT Alkaline Phosphatase Total Creatine Kinase CK-MB (Mass) Troponin I, Quant Total Protein Albumin Globulin Albumin/Globulin Ratio Procalcitonin IgG 946.7 02/05/17 02/05/17 02/05/17 12:00 12:00 21:08 WBC RBC Hgb Hct MCV MCH MCHC RDW Plt Count MPV Neut % (Auto) Lymph % (Auto) [place] % (Auto) Eos % (Auto) Baso % (Auto) Neut # Lymph # [place] # Eos # Baso # Neutrophils % (Manual) Band Neutrophils % Lymphocytes % (Manual) Monocytes % (Manual) Eosinophils % (Manual) Platelet Estimate Large Platelets Giant Platelets Polychromasia Poikilocytosis (manual Basophilic Stippling Anisocytosis (manual) Macrocytosis (manual) Ovalocytes Sodium 134 Potassium 4.1 Chloride 93 L Carbon Dioxide 31 H Anion Gap 14 BUN 28 H Creatinine 4.3 H Est GFR ( Amer) 12 Est GFR (Non-Af Amer) 10 POC Glucose (mg/dL) 290 H Random Glucose 280 H Calcium 8.0 L Phosphorus 3.5 Magnesium 2.2 Total Bilirubin 0.9 Direct Bilirubin AST 858 H ALT 667 H Alkaline Phosphatase 104 Total Creatine Kinase 229 H CK-MB (Mass) 3.06 Troponin I, Quant 1.5600 H* Total Protein 6.5 Albumin 3.5 Globulin 3.1 Albumin/Globulin Ratio 1.1 Procalcitonin 1.39 H IgG 02/06/17 02/06/17 02/06/17 06:13 06:18 06:18 WBC 5.6 RBC 3.03 L Hgb 9.9 L Hct 30.4 L MCV 100.3 H MCH 32.5 H MCHC 32.4 L RDW 16.2 H Plt Count 105 L MPV 9.2 Neut % (Auto) 79.4 H Lymph % (Auto) 8.7 L [place] % (Auto) 9.6 Eos % (Auto) 1.8 Baso % (Auto) 0.5 Neut # 4.5 Lymph # 0.5 L [place] # 0.5 Eos # 0.1 Baso # 0.0 Neutrophils % (Manual) 89 H Band Neutrophils % 1 Lymphocytes % (Manual) 3 L Monocytes % (Manual) 6 Eosinophils % (Manual) 1 Platelet Estimate Slightly decreased L Large Platelets Giant Platelets Polychromasia Slight Poikilocytosis (manual Basophilic Stippling Anisocytosis (manual) Slight Macrocytosis (manual) Slight Ovalocytes Slight Sodium Potassium Chloride Carbon Dioxide Anion Gap BUN Creatinine Est GFR ( Amer) Est GFR (Non-Af Amer) POC Glucose (mg/dL) 238 H Random Glucose Calcium Phosphorus Magnesium Total Bilirubin 0.9 Direct Bilirubin 0.9 H AST 471 H D ALT 561 H Alkaline Phosphatase 104 Total Creatine Kinase CK-MB (Mass) Troponin I, Quant Total Protein 6.0 L Albumin 3.2 L Globulin 2.8 Albumin/Globulin Ratio 1.1 Procalcitonin IgG Assessment & Plan - Assessment and Plan (Free Text) Assessment: 76 y/o F with PMH of A-fib on eliquis, CAD, ESRD on HD MWF, HTN, DM, and HLD initially presented on 02/04/17 for shortness of breath Transferred to ICU for SOB and hypotension during HD Plan: Neuro -AO x 3 -as per prior note patient's mentation has been waxing and waning -consider CT head Cardiovascular -CHF exacerbation -BNP 17779 -likely secondary to ESRD -4L fluid removed in HD today 02/06 -CAD s/p PCI and CABG -ROMIs 0.864--> 1.56 -elevated troponin likely secondary to hypotension. Patient will need cardiac catheterization -EKG on admission showed A fib @72bpm, ST and T wave changes -Rate controlled Afib -CHADS2-VASC score 7 points -Lipid panel WNL TG 46 Cholesterol 81 LDL < 30 HDL 53 Eliquis 2.5mg PO BID -Cardizem 60mg PO QID -Crestor 10mg PO HS -Plavix 75mg PO daily -Midodrine 5mg po tid -Dr Seo cardiology following Respiratory -satting 100% on BiPAP -switched 4L NC satting at 98% -CXR 02/05: prominent diffuse IS lung markings b/l suggestive for severe venous congestion adn or edema and or infiltrate and or additional etiology. B/l pleural effusions. Linear consolidative changes at the R lung base. R hilar prominence. Prominent L suprahilar conslidative changes. Status post median sternotomy. Cardiomegaly -Cefepime 1gm ivpb daily -Monitor GI -transaminitis -AST 471 -ALT 561 -hepatocellular pattern -likely hepatic congestion from acute CHF exacerbation -f/u autoimmune panel -ANA6 negative -Antimitochondrial Ab negative -IgG level WNL -f/u acute Hep panel -abd u/s: echogenic liver in setting of hepatic parenchymal disease or fatty infiltration; suspected GB polyp measuring approx 6mm. No consensus exist regarding management of polyps in the size range. Current recommendations indicate surveillance with serial f/u imaging 3, 6, 12months. GB wall edema/ wall thickening up to 7mm. No calcified gallstones evident. Negative sonographic Sanchez's sign. Echogenic renal parenchyma medical renal disease. R sided pleural effusion. Small abd ascites. -Dr Burt and Dr Love GI following Renal -ESRD on HD MWF -4L fluid removed in HD today 02/06 -Sensipar 30mg po daily -Procrit 10,000u MWF -Renvela 800mg po tid -Nephrology Dr Hines and Dr Barroso following Endo -f/u HgbA1c -RISS -Lantus 50u sc bid- on hold -Accucheck ID -procalcitonin 1.39 -no white count and patient afebrile -CXR 02/05: prominent diffuse IS lung markings b/l suggestive for severe venous congestion adn or edema and or infiltrate and or additional etiology. B/l pleural effusions. Linear consolidative changes at the R lung base. R hilar prominence. Prominent L suprahilar conslidative changes. Status post median sternotomy. Cardiomegaly -Cefepime 1gm ivpb daily Psych -Lyrica 25mg po tid GI ppx: Pepcid 20mg po daily DVT ppx: on eliquis and plavix Code status: Full code Dispo: family meeting to discuss DNR/DNI status Case discussed with Dr. Ronal Trevino PGY2 <Gab Villeda S - Last Filed: 02/06/17 19:36> Meds - Medications Medications: Current Medications Apixaban (Eliquis) 2.5 mg PO BID [facility] Last Admin: 02/06/17 18:24 Dose: Not Given Cinacalcet (Sensipar) 30 mg PO DAILY [facility] Last Admin: 02/06/17 18:23 Dose: 30 mg Clopidogrel Bisulfate (Plavix) 75 mg PO DAILY [facility] Last Admin: 02/06/17 18:22 Dose: Not Given Epoetin Sj (Procrit) 10,000 unit IV MWF [facility] Famotidine (Pepcid) 20 mg PO DAILY [facility] Last Admin: 02/06/17 11:00 Dose: Not Given Cefepime HCl 1 gm/ Sodium (Chloride) 100 mls @ 100 mls/hr IVPB Q24H [facility] Insulin Aspart (Novolog) 0 unit SC ACHS [facility] PRN Reason: Protocol Insulin Glargine (Lantus) 50 unit SC BID [facility] Last Admin: 02/05/17 09:16 Dose: Not Given Midodrine (Proamatine) 5 mg PO TID [facility] Last Admin: 02/06/17 18:23 Dose: 5 mg Pregabalin (Lyrica) 25 mg PO TID [facility] Last Admin: 02/06/17 18:23 Dose: 25 mg Rosuvastatin Calcium (Crestor) 10 mg PO HS [facility] Last Admin: 02/05/17 21:50 Dose: Not Given Sevelamer Carbonate (Renvela) 800 mg PO TID [facility] Last Admin: 02/06/17 18:23 Dose: 800 mg Results - Vital Signs Recent Vital Signs: Last Vital Signs Temp 97.4 F L 02/06/17 17:45 Pulse 109 H 02/06/17 17:45 Resp 17 02/06/17 17:45 BP 99/53 L 02/06/17 17:45 Pulse Ox 97 02/06/17 17:45 - Labs Result Diagrams: 02/06/17 06:18 02/05/17 12:00 Labs: Laboratory Results - last 24 hr 02/05/17 02/05/17 02/05/17 12:00 12:00 21:08 WBC RBC Hgb Hct MCV MCH MCHC RDW Plt Count MPV Neut % (Auto) Lymph % (Auto) [place] % (Auto) Eos % (Auto) Baso % (Auto) Neut # Lymph # [place] # Eos # Baso # Neutrophils % (Manual) Band Neutrophils % Lymphocytes % (Manual) Monocytes % (Manual) Eosinophils % (Manual) Platelet Estimate Polychromasia Anisocytosis (manual) Macrocytosis (manual) Ovalocytes POC Glucose (mg/dL) 290 H Total Bilirubin Direct Bilirubin AST ALT Alkaline Phosphatase Total Protein Albumin Globulin Albumin/Globulin Ratio Triglycerides Cholesterol LDL Cholesterol Direct HDL Cholesterol SALOMÓN 6 Profile Negative Anti-Mitochondrial Ab Negative 02/06/17 02/06/17 02/06/17 06:13 06:18 06:18 WBC 5.6 RBC 3.03 L Hgb 9.9 L Hct 30.4 L MCV 100.3 H MCH 32.5 H MCHC 32.4 L RDW 16.2 H Plt Count 105 L MPV 9.2 Neut % (Auto) 79.4 H Lymph % (Auto) 8.7 L [place] % (Auto) 9.6 Eos % (Auto) 1.8 Baso % (Auto) 0.5 Neut # 4.5 Lymph # 0.5 L [place] # 0.5 Eos # 0.1 Baso # 0.0 Neutrophils % (Manual) 89 H Band Neutrophils % 1 Lymphocytes % (Manual) 3 L Monocytes % (Manual) 6 Eosinophils % (Manual) 1 Platelet Estimate Slightly decreased L Polychromasia Slight Anisocytosis (manual) Slight Macrocytosis (manual) Slight Ovalocytes Slight POC Glucose (mg/dL) 238 H Total Bilirubin 0.9 Direct Bilirubin 0.9 H AST 471 H D ALT 561 H Alkaline Phosphatase 104 Total Protein 6.0 L Albumin 3.2 L Globulin 2.8 Albumin/Globulin Ratio 1.1 Triglycerides Cholesterol LDL Cholesterol Direct HDL Cholesterol SALOMÓN 6 Profile Anti-Mitochondrial Ab 06/02/06/17 02/06/17 11:10 12:10 15:24 WBC RBC Hgb Hct MCV MCH MCHC RDW Plt Count MPV Neut % (Auto) Lymph % (Auto) [place] % (Auto) Eos % (Auto) Baso % (Auto) Neut # Lymph # [place] # Eos # Baso # Neutrophils % (Manual) Band Neutrophils % Lymphocytes % (Manual) Monocytes % (Manual) Eosinophils % (Manual) Platelet Estimate Polychromasia Anisocytosis (manual) Macrocytosis (manual) Ovalocytes POC Glucose (mg/dL) 200 H 232 H Total Bilirubin Direct Bilirubin AST ALT Alkaline Phosphatase Total Protein Albumin Globulin Albumin/Globulin Ratio Triglycerides 46 Cholesterol 81 LDL Cholesterol Direct < 30 HDL Cholesterol 53 SALOMÓN 6 Profile Anti-Mitochondrial Ab 02/06/17 17:16 WBC RBC Hgb Hct MCV MCH MCHC RDW Plt Count MPV Neut % (Auto) Lymph % (Auto) [place] % (Auto) Eos % (Auto) Baso % (Auto) Neut # Lymph # [place] # Eos # Baso # Neutrophils % (Manual) Band Neutrophils % Lymphocytes % (Manual) Monocytes % (Manual) Eosinophils % (Manual) Platelet Estimate Polychromasia Anisocytosis (manual) Macrocytosis (manual) Ovalocytes POC Glucose (mg/dL) 184 H Total Bilirubin Direct Bilirubin AST ALT Alkaline Phosphatase Total Protein Albumin Globulin Albumin/Globulin Ratio Triglycerides Cholesterol LDL Cholesterol Direct HDL Cholesterol SALOMÓN 6 Profile Anti-Mitochondrial Ab Attending/Attestation - Attestation I have personally seen and examined this patient.: Yes I have fully participated in the care of the patient.: Yes I have reviewed all pertinent clinical information: Yes Notes (Text): 02/06/17 18:55 Pt seen and examined case discussed with house staff 76-year-old female transferred to ICU for hypotension and pulmonary edema on BiPAP Status post hemodialysis with 4 lit of fluid removed continue to monitor in ICU Triple lumen catheter inserted a right internal jugular vein under aseptic
--- NOTE | 2017-02-06 12:52 | CP.PCM.PN ---
Subjective - Date & Time of Evaluation Date of Evaluation: 02/06/17 Time of Evaluation: 12:49 - Subjective Subjective: Events noted- dialysis incomplete due to hypotension despite IV albumin/NS fluids Net fluid removal only 1000ml CXR with severe CHF as per ICU On biPAP now, BP around 120/50 Discussed with family- feel pt is very swollen Objective - Vital Signs/Intake and Output Vital Signs (last 24 hours): Temp Pulse Resp BP Pulse Ox 98 F 104 H 14 122/68 100 02/06/17 12:00 02/06/17 12:30 02/06/17 12:30 02/06/17 12:02 02/06/17 12:30 - Medications Medications: Current Medications Amlodipine Besylate (Norvasc) 5 mg PO DAILY [facility] Last Admin: 02/04/17 14:51 Dose: Not Given Apixaban (Eliquis) 2.5 mg PO BID [facility] Last Admin: 02/05/17 18:00 Dose: 2.5 mg Cilostazol (Pletal) 100 mg PO BID [facility] Last Admin: 02/05/17 18:00 Dose: 100 mg Cinacalcet (Sensipar) 30 mg PO DAILY [facility] Last Admin: 02/05/17 11:55 Dose: 30 mg Clopidogrel Bisulfate (Plavix) 75 mg PO DAILY [facility] Last Admin: 02/05/17 11:55 Dose: 75 mg Diltiazem HCl (Cardizem) 60 mg PO QID [facility] Last Admin: 02/04/17 21:17 Dose: Not Given Famotidine (Pepcid) 20 mg PO DAILY [facility] Last Admin: 02/05/17 11:54 Dose: 20 mg Cefepime HCl 1 gm/ Sodium (Chloride) 50 mls @ 100 mls/hr IVPB DAILY [facility] Insulin Glargine (Lantus) 50 unit SC BID [facility] Last Admin: 02/05/17 09:16 Dose: Not Given Midodrine (Proamatine) 2.5 mg PO TID [facility] Pregabalin (Lyrica) 25 mg PO TID [facility] Last Admin: 02/05/17 18:00 Dose: 25 mg Rosuvastatin Calcium (Crestor) 10 mg PO HS [facility] Last Admin: 02/05/17 21:50 Dose: Not Given Sevelamer Carbonate (Renvela) 800 mg PO TID [facility] Last Admin: 02/05/17 18:00 Dose: 800 mg - Labs Labs: 02/06/17 06:18 02/05/17 12:00 PT 19.3 SECONDS (9.7-12.2) H 02/04/17 05:15 INR 1.7 02/04/17 05:15 APTT 35 SECONDS (21-34) H 02/04/17 05:15 - Constitutional Appears: In Acute Distress, Chronically Ill - Head Exam Head Exam: ATRAUMATIC, NORMAL INSPECTION - Eye Exam Eye Exam: EOMI, Normal appearance - Neck Exam Neck Exam: Normal Inspection. absent: Tenderness - Respiratory Exam Respiratory Exam: Rhonchi, Respiratory Distress - Cardiovascular Exam Cardiovascular Exam: Tachycardia, +S1 - GI/Abdominal Exam GI & Abdominal Exam: Distended, Soft - Extremities Exam Extremities Exam: Pedal Edema. absent: Tenderness - Neurological Exam Neurological Exam: Awake, CN II-XII Intact - Skin Skin Exam: Dry, Warm Assessment and Plan (1) Ischemic cardiomyopathy Status: Acute (2) Afib Status: Acute (3) Congestive heart failure Status: Acute (4) ESRD (end stage renal disease) on dialysis Status: Chronic (5) CAD (coronary artery disease) of artery bypass graft Status: Acute - Assessment and Plan (Free Text) Plan: Repeat dialysis again now and daily BP support with IV albumin, pressors if needed Use 3K bath Sequential UF if necessary Increase midodrine dose No antihypertensive meds
--- NOTE | 2017-02-06 12:57 | PCM.RRTMUL ---
CLINICAL RESEARCH TECHNICIAN Nurses Assessment - Situation CLINICAL RESEARCH TECHNICIAN Responder Arrival Time:: 11:10 Location:: Hemodialysis Room Room Number:: 651A CLINICAL RESEARCH TECHNICIAN Reason for Call: Hypotension, Respiratory Distress - IV IV Inserted during CLINICAL RESEARCH TECHNICIAN?: Yes IV Fluids Initiated During CLINICAL RESEARCH TECHNICIAN?: 500 cc NS bolus New IV Insertion Tolerance:: Good - Respiratory Oxygen Delivery Method:: Mask, BiPAP Received Nebulizer Treatments:: No Was the Patient Ventilated with Bag/Mask 100% O2?: Yes Secretions Suctioned?: No Was the Patient Intubated?: No (possible intubation- ICU transfer) Was the Patient Placed on a Ventilator?: No - Ventilator Settings SAO2 %:: 84 FIO2 (% Oxygen):: 80 - Medication Medications Administered During CLINICAL RESEARCH TECHNICIAN :: Midodrine 2.5mg PO BID - Diagnostic Test Ordered EKG:: No Chest X-Ray:: Yes CT Scan:: No CPR started during CLINICAL RESEARCH TECHNICIAN?: No - Vital Signs Blood Pressure:: 77/40 Pulse Rate:: 101 Respiratory Rate:: 20 - Marcin Coma Scale Coma Scale Eye Opening:: Spontaneous Coma Scale Motor:: Obeys Commands Movement - Sepsis Screen Part 1 Sepsis Screen Part 1: Hypotensive - Time CLINICAL RESEARCH TECHNICIAN Ended Time CLINICAL RESEARCH TECHNICIAN Ended:: 11:26 - Vital Signs at end of CLINICAL RESEARCH TECHNICIAN Blood Pressure:: 94/53 Pulse Rate:: 95 O2 Sat by Pulse Oximetry:: 100 - Recommendations 5) CLINICAL RESEARCH TECHNICIAN Level of Care Recommendations: Transfer to ICU I.Reason for CLINICAL RESEARCH TECHNICIAN - A) Acute Change in Patient: (Select all that apply): Acute change in SBP below (77/40), Acute change in SpO2 less (84%) - A) Initial Vital Signs: Blood Pressure: 77/40 Pulse Rate: 101 O2 Sat by Pulse Oximetry: 84 - B) Neurological Status (Select all that apply): Alert, Responsive - C) Respiratory Oxygen Delivery Method: BiPAP @% - Head Head Exam: NORMAL INSPECTION, NORMOCEPHALIC - Eyes Eye Exam: Normal appearance - Respiratory Exam Respiratory Exam: Respiratory Distress - Cardiovascular Exam Cardiovascular Exam: Irregular Rhythm, +S1, +S2. absent: Murmur - GI/Abdominal Exam GI & Abdominal Exam: Normal Bowel Sounds - Neurological Exam Neurological Exam: Awake - Extremities Exam Extremities Exam: Normal Inspection Plan - A. End of CLINICAL RESEARCH TECHNICIAN Vital Signs: Blood Pressure: 94/53 Pulse Rate: 95 O2 Sat by Pulse Oximetry: 100 Finger Stick Blood Glucose: 200 - B. Assessment of Findings&Treatment Plan Rapid called on patient for hypotension and respiratory distress. Patients blood pressure was 77/40, HR 101, O2 sat 84%. Patient was seen and examined by Dr. Ugalde. BiPAP was initiated and O2 sat increased to 100%. Chest xray from 02/05 reviewed, Dr. Villeda, memory care program resident, was consulted, and repeat chest xray was ordered. Patient was transferred to the ICU.
[2017-02-06] MEDS ORDERED: Cefepime 1 GM in Sodium Chloride 0.9% 50 ML IVPB SCH (13:00)
--- NOTE | 2017-02-06 13:51 | CP.PCM.PN ---
Subjective - Date & Time of Evaluation Date of Evaluation: 02/06/17 Time of Evaluation: 13:48 - Subjective Subjective: Progress Note for Dr. Seo Pt seen and examined at bedside. Pt short of breath overnight. Otherwise, no acute events overnight. During HD this morning, pt was found to be hypotensive with a BP of 74/34 and O2 sat 84%. Pt was placed on bipap and taken to the ICU. Objective - Vital Signs/Intake and Output Vital Signs (last 24 hours): Temp Pulse Resp BP Pulse Ox 98 F 95 H 14 94/53 L 100 02/06/17 12:00 02/06/17 13:13 02/06/17 13:13 02/06/17 13:13 02/06/17 12:30 - Medications Medications: Current Medications Apixaban (Eliquis) 2.5 mg PO BID [facility] Last Admin: 02/06/17 11:00 Dose: Not Given Cilostazol (Pletal) 100 mg PO BID [facility] Last Admin: 02/06/17 11:00 Dose: Not Given Cinacalcet (Sensipar) 30 mg PO DAILY [facility] Last Admin: 02/05/17 11:55 Dose: 30 mg Clopidogrel Bisulfate (Plavix) 75 mg PO DAILY [facility] Last Admin: 02/05/17 11:55 Dose: 75 mg Epoetin Sj (Procrit) 10,000 unit IV MWF [facility] Famotidine (Pepcid) 20 mg PO DAILY [facility] Last Admin: 02/05/17 11:54 Dose: 20 mg Cefepime HCl 1 gm/ Sodium (Chloride) 100 mls @ 100 mls/hr IVPB Q24H [facility] Insulin Glargine (Lantus) 50 unit SC BID [facility] Last Admin: 02/05/17 09:16 Dose: Not Given Midodrine (Proamatine) 5 mg PO TID [facility] Pregabalin (Lyrica) 25 mg PO TID [facility] Last Admin: 02/06/17 11:00 Dose: Not Given Rosuvastatin Calcium (Crestor) 10 mg PO HS [facility] Last Admin: 02/05/17 21:50 Dose: Not Given Sevelamer Carbonate (Renvela) 800 mg PO TID [facility] Last Admin: 02/06/17 11:00 Dose: Not Given - Labs Labs: 02/06/17 06:18 02/05/17 12:00 PT 19.3 SECONDS (9.7-12.2) H 02/04/17 05:15 INR 1.7 02/04/17 05:15 APTT 35 SECONDS (21-34) H 02/04/17 05:15 - Constitutional Appears: Non-toxic, No Acute Distress - Head Exam Head Exam: ATRAUMATIC, NORMAL INSPECTION, NORMOCEPHALIC - Respiratory Exam Respiratory Exam: Decreased Breath Sounds - Cardiovascular Exam Cardiovascular Exam: Irregular Rhythm, +S1, +S2 - GI/Abdominal Exam GI & Abdominal Exam: Soft, Normal Bowel Sounds. absent: Tenderness - Extremities Exam Extremities Exam: Pedal Edema (trace b/l). absent: Calf Tenderness - Neurological Exam Neurological Exam: Alert, Awake - Skin Skin Exam: Intact, Normal Color, Warm Assessment and Plan (1) Congestive heart failure Assessment & Plan: Echocardiogram pending Pt will need cardiac catheterization Caution with lasix use as patient is chronically hypotensive Continue current medical management Status: Acute
--- NOTE | 2017-02-06 13:57 | RAD ---
Chest x-ray single frontal view History: Respiratory distress. Comparison: 02/05/2017 Findings: Moderate to severe venous congestion with confluent airspace consolidative changes in the mid to lower lung zones bilaterally as well as within the bilateral perihilar regions extending into the left suprahilar region. Enlarged ectatic aorta with prominent cardiomegaly. Status post median sternotomy. Biapical pleural thickening with upper lobe granulomatous changes. Left axillary stent in place. Degenerative changes in the spine. Impression: No significant interval change.
[2017-02-06 15:41] LABS: HDL CHOLESTEROL 53 mg/dL (30-70)
[2017-02-06 15:57] LABS: LDL CHOLESTEROL < 30 mg/dL (0-129)
--- NOTE | 2017-02-06 18:52 | PCM.PROC ---
Procedures Attestation:: I certify that I have explained the specified Operation(s) or Procedure(s), risks, benefits and reasonable alternatives to the Patient and/or other person responsible. The opportunity was given to ask questions and all questions answered - Central Line Placement Right Internal Jugular Triple Lumen Catheter Aseptic technique was employed throughout the procedure: Hand Hygiene done prior to procedure, Full sterile barriers (mask, hair cover, sterile gown, sterile gloves), Full body sterile drape, Chloraprep Antiseptic: 30 second prep for IJ or SC sites CVP Time Out Performed: Yes Pt. Placed on Pulse Ox Monitor: Yes Central Line Prep: Chlorhexidine-Alcohol Combination Local Anesthesia Used: Lidocaine 1% Ultrasound Used for Placement: Yes Central Line Lumen Inserted: triple Central Line Length: 20 cm Post Procedure: Sutured in Place, Good Blood Return, All Ports Aspirated, Flushed, Capped, Sterile Dressing Applied Secured by: Securement device Post procedure dressing: Clear vapor permeable, Chlorhexidine disc (Biopatch) Post Procedure X-Ray: Yes Patient Tolerated Procedure: No Complications Immediate Complications: None (Line placed by retail sales consultant Dr. Villeda)
[2017-02-06] MEDS: Cefepime 1 GM in Sodium Chloride 0.9% 100 ML IVPB SCH (20:00)
[2017-02-06] MEDS: (Novolog) Insulin Aspart, Recombinant 100 u/ml 10 ml vial SC SCH (21:59)
--- NOTE | 2017-02-07 06:50 | CARD ---
APPROVED REPORT EKG Measurement Heart [id number] <Conclusion> Atrial fibrillation Rightward axis Nonspecific ST and T wave abnormality Abnormal ECG
[2017-02-07 06:55] LABS: BASO # 0.1 K/uL (0.0-0.2); BASO % 1.1 % (0.0-2.0); EOS # 0.1 K/uL (0.0-0.7); EOS % 1.3 % (0.0-4.0); HEMOGLOBIN 10.5 g/dL (11.0-16.0); LYMPH # 0.7 K/uL (1.0-4.3); MEAN CELL VOLUME 101.1 fL (81.0-99.0); MEAN CORPUSCULAR HEMOGLOBIN 32.1 pg (27.0-31.0); MEAN CORPUSCULAR HGB CONC 31.8 g/dL (33.0-37.0); MEAN PLATELET VOLUME 9.3 fL (7.2-11.7); MONO # 0.5 K/uL (0.0-0.8); MONO % 9.9 % (0.0-10.0); NEUT # 4.2 K/uL (1.8-7.0); NEUT % 75.7 % (50.0-75.0); RBC 3.28 Mil/uL (3.80-5.20); RED CELL DISTRIBUTION WIDTH 16.2 % (11.5-14.5); WHITE BLOOD COUNT 5.6 K/uL (4.8-10.8)
--- NOTE | 2017-02-07 07:05 | CP.PCM.PN ---
Subjective - Date & Time of Evaluation Date of Evaluation: 02/07/17 Time of Evaluation: 07:04 Objective - Vital Signs/Intake and Output Vital Signs (last 24 hours): Temp Pulse Resp BP Pulse Ox 98.5 F 111 H 12 117/62 97 02/07/17 04:00 02/07/17 04:04 02/07/17 04:04 02/07/17 04:04 02/07/17 04:04 Intake and Output: 02/07/17 02/07/17 06:59 18:59 Intake Total 150 Output Total 0 Balance 150 - Medications Medications: Current Medications Apixaban (Eliquis) 2.5 mg PO BID [facility] Last Admin: 02/06/17 18:24 Dose: Not Given Cinacalcet (Sensipar) 30 mg PO DAILY [facility] Last Admin: 02/06/17 18:23 Dose: 30 mg Clopidogrel Bisulfate (Plavix) 75 mg PO DAILY [facility] Last Admin: 02/06/17 18:22 Dose: Not Given Epoetin Sj (Procrit) 10,000 unit IV MWF [facility] Famotidine (Pepcid) 20 mg PO DAILY [facility] Last Admin: 02/06/17 11:00 Dose: Not Given Cefepime HCl 1 gm/ Sodium (Chloride) 100 mls @ 100 mls/hr IVPB Q24H [facility] Last Admin: 02/06/17 20:00 Dose: 100 mls/hr Insulin Aspart (Novolog) 0 unit SC ACHS [facility] PRN Reason: Protocol Last Admin: 02/06/17 21:59 Dose: Not Given Insulin Glargine (Lantus) 50 unit SC BID [facility] Last Admin: 02/05/17 09:16 Dose: Not Given Midodrine (Proamatine) 5 mg PO TID [facility] Last Admin: 02/06/17 18:23 Dose: 5 mg Pregabalin (Lyrica) 25 mg PO TID [facility] Last Admin: 02/06/17 18:23 Dose: 25 mg Rosuvastatin Calcium (Crestor) 10 mg PO HS [facility] Last Admin: 02/06/17 21:58 Dose: 10 mg Sevelamer Carbonate (Renvela) 800 mg PO TID [facility] Last Admin: 02/06/17 18:23 Dose: 800 mg - Labs Labs: 02/06/17 06:18 06/29/17 12:00 PT 19.3 SECONDS (9.7-12.2) H 02/04/17 05:15 INR 1.7 02/04/17 05:15 APTT 35 SECONDS (21-34) H 02/04/17 05:15
[2017-02-07 07:16] LABS: ALBUMIN 3.4 g/dL (3.5-5.0)
[2017-02-07 07:20] LABS: CALCIUM 7.8 mg/dl (8.6-10.4); MAGNESIUM 2.1 mg/dL (1.6-2.3)
--- NOTE | 2017-02-07 08:30 | CP.CCUPN ---
CCU Subjective - Physician Review Events Since Last Encounter (Free Text): 02/07/17 08:29 76-year-old female with a history of end-stage renal disease on dialysis, hypertension, CAD, post CABG. Patient brought into the intensive care unit because of the hypotension, tachycardia, doing dialysis. Patient received IV fluids. Placed on BiPAP. In the intensive care unit the patient was placed on BiPAP, and he received hemodialysis, patient had at least 3 hours of dialysis was done. Patient is now awake and responding. Not in any distress. Minimal tachycardia noted, with the atrial fibrillation. Critical Care Time Spent (in minutes): 45 CCU Objective - Vital Signs / Intake & Output Vital Signs (Last 4 hours): Vital Signs Pulse Resp BP Pulse Ox 02/07/17 07:04 122 H 14 125/65 98 02/07/17 07:00 125 H 13 97 02/07/17 06:06 132 H 14 114/78 92 L 02/07/17 06:00 168 H 14 94 L 02/07/17 05:04 103 H 13 113/62 95 02/07/17 05:00 107 H 15 96 Intake and Output (Last 8hrs): Intake & Output 02/06/17 02/07/17 02/07/17 22:59 06:59 14:59 Intake Total 320 0 0 Output Total 0 0 0 Balance 320 0 0 Intake: Oral 320 0 0 Output: Urine 0 0 0 Urine, Voided 0 0 0 Other: # Bowel Movements 1 - Physical Exam Narrative Physical Exam (Free Text): 02/07/17 08:29 Vital signs reviewed No neck vein distention noted Chest good air entry bilaterally, no wheezing or rales noted CVS regular heart sound, no murmur noted Abdomen soft, nontender. Extremities no pedal edema [employer] alert awake oriented 3, no functional neurological deficit - Medications Active Medications: Active Medications Generic Name Dose Route Start Last Admin Trade Name Freq PRN Reason Stop Dose Admin Apixaban 2.5 mg 02/04/17 10:00 02/06/17 18:24 Eliquis PO Not Given BID [facility] Cinacalcet 30 mg 02/04/17 10:00 02/06/17 18:23 Sensipar PO 30 mg DAILY [facility] Administration Clopidogrel Bisulfate 75 mg 02/04/17 10:00 02/06/17 18:22 Plavix PO Not Given DAILY [facility] Epoetin Sj 10,000 unit 02/09/17 09:00 Procrit IV MWF [facility] Famotidine 20 mg 02/04/17 10:00 02/06/17 11:00 Pepcid PO Not Given DAILY [facility] Cefepime HCl 1 gm/ Sodium 100 mls @ 100 mls/hr 02/06/17 13:00 02/06/17 20:00 Chloride IVPB 100 mls/hr Q24H [facility] Administration Insulin Aspart 0 unit 02/06/17 22:00 02/06/17 21:59 Novolog SC Not Given ACHS [facility] Protocol Insulin Glargine 50 unit 02/04/17 10:00 02/05/17 09:16 Lantus SC Not Given BID [facility] Midodrine 5 mg 02/06/17 14:00 02/06/17 18:23 Proamatine PO 5 mg TID [facility] Administration Pregabalin 25 mg 02/04/17 10:00 02/06/17 18:23 Lyrica PO 25 mg TID [facility] Administration Rosuvastatin Calcium 10 mg 02/04/17 22:00 02/06/17 21:58 Crestor PO 10 mg HS [facility] Administration Sevelamer Carbonate 800 mg 02/04/17 10:00 02/06/17 18:23 Renvela PO 800 mg TID [facility] Administration - Patient Studies Lab Studies: Microbiology Studies 02/05/17 10:21 Blood Culture - Preliminary Blood NO GROWTH AFTER 24 HOURS 02/05/17 10:21 Blood Culture - Preliminary Blood NO GROWTH AFTER 24 HOURS Lab Studies 02/07/17 02/07/17 02/07/17 Range/Units 08:05 06:46 06:46 WBC 5.6 (4.8-10.8) K/uL RBC 3.28 L (3.80-5.20) Mil/uL Hgb 10.5 L (11.0-16.0) g/dL Hct 33.2 L (34.0-47.0) % MCV 101.1 H (81.0-99.0) fL MCH 32.1 H (27.0-31.0) pg MCHC 31.8 L (33.0-37.0) g/dL RDW 16.2 H (11.5-14.5) % Plt Count 97 L (130-400) K/uL MPV 9.3 (7.2-11.7) fL Neut % (Auto) 75.7 H (50.0-75.0) % Lymph % (Auto) 12.0 L (20.0-40.0) % [place] % (Auto) 9.9 (0.0-10.0) % Eos % (Auto) 1.3 (0.0-4.0) % Baso % (Auto) 1.1 (0.0-2.0) % Neut # 4.2 (1.8-7.0) K/uL Lymph # 0.7 L (1.0-4.3) K/uL [place] # 0.5 (0.0-0.8) K/uL Eos # 0.1 (0.0-0.7) K/uL Baso # 0.1 (0.0-0.2) K/uL Neutrophils % (Manual) (50-75) % Band Neutrophils % (0-2) % Lymphocytes % (Manual) (20-40) % Monocytes % (Manual) (0-10) % Eosinophils % (Manual) (0-4) % Platelet Estimate (NORMAL) Polychromasia Anisocytosis (manual) Macrocytosis (manual) Ovalocytes Sodium 135 (132-148) mmol/L Potassium 4.0 (3.6-5.2) mmol/L Chloride 94 L (98-107) mmol/L Carbon Dioxide 29 (22-30) mmol/L Anion Gap 16 (10-20) BUN 26 H (7-17) mg/dL Creatinine 3.7 H (0.7-1.2) MG/DL Est GFR ( Amer) 14 Est GFR (Non-Af Amer) 12 POC Glucose (mg/dL) 133 H (65-110) mg/dL Random Glucose 131 H (65-105) mg/dL Calcium 7.8 L (8.6-10.4) mg/dl Phosphorus 2.5 (2.5-4.5) mg/dL Magnesium 2.1 (1.6-2.3) mg/dL Total Bilirubin 1.1 (0.2-1.3) mg/dL AST 289 H D (14-36) U/L ALT 482 H (9-52) U/L Alkaline Phosphatase 127 H D (38-126) U/L Total Protein 6.6 (6.3-8.3) g/dL Albumin 3.4 L (3.5-5.0) g/dL Globulin 3.3 (2.2-3.9) gm/dL Albumin/Globulin Ratio 1.0 (1.0-2.1) Triglycerides (0-149) mg/dL Cholesterol (0-199) mg/dL LDL Cholesterol Direct (0-129) mg/dL HDL Cholesterol (30-70) mg/dL SALOMÓN 6 Profile (NEGATIVE) Anti-Mitochondrial Ab (Negative) 02/06/17 02/06/17 02/06/17 Range/Units 21:15 17:16 15:24 WBC (4.8-10.8) K/uL RBC (3.80-5.20) Mil/uL Hgb (11.0-16.0) g/dL Hct (34.0-47.0) % MCV (81.0-99.0) fL MCH (27.0-31.0) pg MCHC (33.0-37.0) g/dL RDW (11.5-14.5) % Plt Count (130-400) K/uL MPV (7.2-11.7) fL Neut % (Auto) (50.0-75.0) % Lymph % (Auto) (20.0-40.0) % [place] % (Auto) (0.0-10.0) % Eos % (Auto) (0.0-4.0) % Baso % (Auto) (0.0-2.0) % Neut # (1.8-7.0) K/uL Lymph # (1.0-4.3) K/uL [place] # (0.0-0.8) K/uL Eos # (0.0-0.7) K/uL Baso # (0.0-0.2) K/uL Neutrophils % (Manual) (50-75) % Band Neutrophils % (0-2) % Lymphocytes % (Manual) (20-40) % Monocytes % (Manual) (0-10) % Eosinophils % (Manual) (0-4) % Platelet Estimate (NORMAL) Polychromasia Anisocytosis (manual) Macrocytosis (manual) Ovalocytes Sodium (132-148) mmol/L Potassium (3.6-5.2) mmol/L Chloride (98-107) mmol/L Carbon Dioxide (22-30) mmol/L Anion Gap (10-20) BUN (7-17) mg/dL Creatinine (0.7-1.2) MG/DL Est GFR ( Amer) Est GFR (Non-Af Amer) POC Glucose (mg/dL) 174 H 184 H (65-110) mg/dL Random Glucose (65-105) mg/dL Calcium (8.6-10.4) mg/dl Phosphorus (2.5-4.5) mg/dL Magnesium (1.6-2.3) mg/dL Total Bilirubin (0.2-1.3) mg/dL AST (14-36) U/L ALT (9-52) U/L Alkaline Phosphatase (38-126) U/L Total Protein (6.3-8.3) g/dL Albumin (3.5-5.0) g/dL Globulin (2.2-3.9) gm/dL Albumin/Globulin Ratio (1.0-2.1) Triglycerides 46 (0-149) mg/dL Cholesterol 81 (0-199) mg/dL LDL Cholesterol Direct < 30 (0-129) mg/dL HDL Cholesterol 53 (30-70) mg/dL SALOMÓN 6 Profile (NEGATIVE) Anti-Mitochondrial Ab (Negative) 02/06/17 02/06/17 02/06/17 Range/Units 12:10 11:10 06:18 WBC (4.8-10.8) K/uL RBC (3.80-5.20) Mil/uL Hgb (11.0-16.0) g/dL Hct (34.0-47.0) % MCV (81.0-99.0) fL MCH (27.0-31.0) pg MCHC (33.0-37.0) g/dL RDW (11.5-14.5) % Plt Count (130-400) K/uL MPV (7.2-11.7) fL Neut % (Auto) (50.0-75.0) % Lymph % (Auto) (20.0-40.0) % [place] % (Auto) (0.0-10.0) % Eos % (Auto) (0.0-4.0) % Baso % (Auto) (0.0-2.0) % Neut # (1.8-7.0) K/uL Lymph # (1.0-4.3) K/uL [place] # (0.0-0.8) K/uL Eos # (0.0-0.7) K/uL Baso # (0.0-0.2) K/uL Neutrophils % (Manual) 89 H (50-75) % Band Neutrophils % 1 (0-2) % Lymphocytes % (Manual) 3 L (20-40) % Monocytes % (Manual) 6 (0-10) % Eosinophils % (Manual) 1 (0-4) % Platelet Estimate Slightly decreased L (NORMAL) Polychromasia Slight Anisocytosis (manual) Slight Macrocytosis (manual) Slight Ovalocytes Slight Sodium (132-148) mmol/L Potassium (3.6-5.2) mmol/L Chloride (98-107) mmol/L Carbon Dioxide (22-30) mmol/L Anion Gap (10-20) BUN (7-17) mg/dL Creatinine (0.7-1.2) MG/DL Est GFR ( Amer) Est GFR (Non-Af Amer) POC Glucose (mg/dL) 232 H 200 H (65-110) mg/dL Random Glucose (65-105) mg/dL Calcium (8.6-10.4) mg/dl Phosphorus (2.5-4.5) mg/dL Magnesium (1.6-2.3) mg/dL Total Bilirubin (0.2-1.3) mg/dL AST (14-36) U/L ALT (9-52) U/L Alkaline Phosphatase (38-126) U/L Total Protein (6.3-8.3) g/dL Albumin (3.5-5.0) g/dL Globulin (2.2-3.9) gm/dL Albumin/Globulin Ratio (1.0-2.1) Triglycerides (0-149) mg/dL Cholesterol (0-199) mg/dL LDL Cholesterol Direct (0-129) mg/dL HDL Cholesterol (30-70) mg/dL SALOM[place]N 6 Profile (NEGATIVE) Anti-Mitochondrial Ab (Negative) 02/05/17 02/05/17 Range/Units 12:00 12:00 WBC (4.8-10.8) K/uL RBC (3.80-5.20) Mil/uL Hgb (11.0-16.0) g/dL Hct (34.0-47.0) % MCV (81.0-99.0) fL MCH (27.0-31.0) pg MCHC (33.0-37.0) g/dL RDW (11.5-14.5) % Plt Count (130-400) K/uL MPV (7.2-11.7) fL Neut % (Auto) (50.0-75.0) % Lymph % (Auto) (20.0-40.0) % [place] % (Auto) (0.0-10.0) % Eos % (Auto) (0.0-4.0) % Baso % (Auto) (0.0-2.0) % Neut # (1.8-7.0) K/uL Lymph # (1.0-4.3) K/uL [place] # (0.0-0.8) K/uL Eos # (0.0-0.7) K/uL Baso # (0.0-0.2) K/uL Neutrophils % (Manual) (50-75) % Band Neutrophils % (0-2) % Lymphocytes % (Manual) (20-40) % Monocytes % (Manual) (0-10) % Eosinophils % (Manual) (0-4) % Platelet Estimate (NORMAL) Polychromasia Anisocytosis (manual) Macrocytosis (manual) Ovalocytes Sodium (132-148) mmol/L Potassium (3.6-5.2) mmol/L Chloride (98-107) mmol/L Carbon Dioxide (22-30) mmol/L Anion Gap (10-20) BUN (7-17) mg/dL Creatinine (0.7-1.2) MG/DL Est GFR ( Amer) Est GFR (Non-Af Amer) POC Glucose (mg/dL) (65-110) mg/dL Random Glucose (65-105) mg/dL Calcium (8.6-10.4) mg/dl Phosphorus (2.5-4.5) mg/dL Magnesium (1.6-2.3) mg/dL Total Bilirubin (0.2-1.3) mg/dL AST (14-36) U/L ALT (9-52) U/L Alkaline Phosphatase (38-126) U/L Total Protein (6.3-8.3) g/dL Albumin (3.5-5.0) g/dL Globulin (2.2-3.9) gm/dL Albumin/Globulin Ratio (1.0-2.1) Triglycerides (0-149) mg/dL Cholesterol (0-199) mg/dL LDL Cholesterol Direct (0-129) mg/dL HDL Cholesterol (30-70) mg/dL SALOM[facility]N 6 Profile Negative (NEGATIVE) Anti-Mitochondrial Ab Negative (Negative) Laboratory Results - last 24 hr 02/05/17 02/05/17 02/06/17 12:00 12:00 06:18 WBC RBC Hgb Hct MCV MCH MCHC RDW Plt Count MPV Neut % (Auto) Lymph % (Auto) [place] % (Auto) Eos % (Auto) Baso % (Auto) Neut # Lymph # [place] # Eos # Baso # Neutrophils % (Manual) 89 H Band Neutrophils % 1 Lymphocytes % (Manual) 3 L Monocytes % (Manual) 6 Eosinophils % (Manual) 1 Platelet Estimate Slightly decreased L Polychromasia Slight Anisocytosis (manual) Slight Macrocytosis (manual) Slight Ovalocytes Slight Sodium Potassium Chloride Carbon Dioxide Anion Gap BUN Creatinine Est GFR ( Amer) Est GFR (Non-Af Amer) POC Glucose (mg/dL) Random Glucose Calcium Phosphorus Magnesium Total Bilirubin AST ALT Alkaline Phosphatase Total Protein Albumin Globulin Albumin/Globulin Ratio Triglycerides Cholesterol LDL Cholesterol Direct HDL Cholesterol SALOMÓN 6 Profile Negative Anti-Mitochondrial Ab Negative 02/06/17 02/06/17 02/06/17 11:10 12:10 15:24 WBC RBC Hgb Hct MCV MCH MCHC RDW Plt Count MPV Neut % (Auto) Lymph % (Auto) [place] % (Auto) Eos % (Auto) Baso % (Auto) Neut # Lymph # [place] # Eos # Baso # Neutrophils % (Manual) Band Neutrophils % Lymphocytes % (Manual) Monocytes % (Manual) Eosinophils % (Manual) Platelet Estimate Polychromasia Anisocytosis (manual) Macrocytosis (manual) Ovalocytes Sodium Potassium Chloride Carbon Dioxide Anion Gap BUN Creatinine Est GFR ( Amer) Est GFR (Non-Af Amer) POC Glucose (mg/dL) 200 H 232 H Random Glucose Calcium Phosphorus Magnesium Total Bilirubin AST ALT Alkaline Phosphatase Total Protein Albumin Globulin Albumin/Globulin Ratio Triglycerides 46 Cholesterol 81 LDL Cholesterol Direct < 30 HDL Cholesterol 53 SALOM[place]N 6 Profile Anti-Mitochondrial Ab 02/06/17 02/06/17 02/07/17 17:16 21:15 06:46 WBC 5.6 RBC 3.28 L Hgb 10.5 L Hct 33.2 L MCV 101.1 H MCH 32.1 H MCHC 31.8 L RDW 16.2 H Plt Count 97 L MPV 9.3 Neut % (Auto) 75.7 H Lymph % (Auto) 12.0 L [place] % (Auto) 9.9 Eos % (Auto) 1.3 Baso % (Auto) 1.1 Neut # 4.2 Lymph # 0.7 L [place] # 0.5 Eos # 0.1 Baso # 0.1 Neutrophils % (Manual) Band Neutrophils % Lymphocytes % (Manual) Monocytes % (Manual) Eosinophils % (Manual) Platelet Estimate Polychromasia Anisocytosis (manual) Macrocytosis (manual) Ovalocytes Sodium Potassium Chloride Carbon Dioxide Anion Gap BUN Creatinine Est GFR ( Amer) Est GFR (Non-Af Amer) POC Glucose (mg/dL) 184 H 174 H Random Glucose Calcium Phosphorus Magnesium Total Bilirubin AST ALT Alkaline Phosphatase Total Protein Albumin Globulin Albumin/Globulin Ratio Triglycerides Cholesterol LDL Cholesterol Direct HDL Cholesterol SALOM[place]N 6 Profile Anti-Mitochondrial Ab 02/07/17 02/07/17 06:46 08:05 WBC RBC Hgb Hct MCV MCH MCHC RDW Plt Count MPV Neut % (Auto) Lymph % (Auto) [place] % (Auto) Eos % (Auto) Baso % (Auto) Neut # Lymph # [place] # Eos # Baso # Neutrophils % (Manual) Band Neutrophils % Lymphocytes % (Manual) Monocytes % (Manual) Eosinophils % (Manual) Platelet Estimate Polychromasia Anisocytosis (manual) Macrocytosis (manual) Ovalocytes Sodium 135 Potassium 4.0 Chloride 94 L Carbon Dioxide 29 Anion Gap 16 BUN 26 H Creatinine 3.7 H Est GFR ( Amer) 14 Est GFR (Non-Af Amer) 12 POC Glucose (mg/dL) 133 H Random Glucose 131 H Calcium 7.8 L Phosphorus 2.5 Magnesium 2.1 Total Bilirubin 1.1 AST 289 H D ALT 482 H Alkaline Phosphatase 127 H D Total Protein 6.6 Albumin 3.4 L Globulin 3.3 Albumin/Globulin Ratio 1.0 Triglycerides Cholesterol LDL Cholesterol Direct HDL Cholesterol SALOM[place]N 6 Profile Anti-Mitochondrial Ab Fingerstick Blood Sugar Results: 184 Critical Care Progress Note - Nutrition Nutrition: Nutrition Category Date Time Status Renal Diet [DIET] Diets 02/04/17 Dinner Active Assessment/Plan - Assessment and Plan (Free Text) Assessment: 76-year-old female with history of CAD, post CABG, hypertension, end-stage renal disease on dialysis admitted to the intensive care in with the atrial fibrillation, hypotension, and respiratory distress. Patient now improving. On oxygen. A. fib with rapid ventricular rate noted. We will add antiarrhythmics medication. Anticoagulation. Continue the current medical management. For possible dialysis today.
[2017-02-07] MEDS: (Novolog) Insulin Aspart, Recombinant 100 u/ml 10 ml vial SC SCH ×4 (08:33→22:24)
--- NOTE | 2017-02-07 08:43 | CP.PCM.PN ---
<Attila Alonzo - Last Filed: 02/07/17 08:40> Subjective - Date & Time of Evaluation Date of Evaluation: 02/07/17 Time of Evaluation: 06:45 - Subjective Subjective: PGY4 GI Fellow Progress Note Patient seen and examined bedside this morning. The patient is confused and cannot state where she is and appears delirious. Does not answer questions appropriately. S/P HD yesterday. cannot elicit any complaints. Comfortable on NC. 12 system ROS performed and negative except where stated. Objective - Vital Signs/Intake and Output Vital Signs (last 24 hours): Temp Pulse Resp BP Pulse Ox 98.5 F 122 H 14 125/65 98 02/07/17 04:00 02/07/17 07:04 02/07/17 07:04 02/07/17 07:04 02/07/17 07:04 Intake and Output: 02/07/17 02/07/17 06:59 18:59 Intake Total 150 0 Output Total 0 0 Balance 150 0 - Medications Medications: Current Medications Apixaban (Eliquis) 2.5 mg PO BID [facility] Last Admin: 02/06/17 18:24 Dose: Not Given Cinacalcet (Sensipar) 30 mg PO DAILY [facility] Last Admin: 02/06/17 18:23 Dose: 30 mg Clopidogrel Bisulfate (Plavix) 75 mg PO DAILY [facility] Last Admin: 02/06/17 18:22 Dose: Not Given Diltiazem HCl (Cardizem) 30 mg PO TID [facility] Epoetin Sj (Procrit) 10,000 unit IV MWF [facility] Famotidine (Pepcid) 20 mg PO DAILY [facility] Last Admin: 02/06/17 11:00 Dose: Not Given Cefepime HCl 1 gm/ Sodium (Chloride) 100 mls @ 100 mls/hr IVPB Q24H [facility] Last Admin: 02/06/17 20:00 Dose: 100 mls/hr Insulin Aspart (Novolog) 0 unit SC ACHS [facility] PRN Reason: Protocol Last Admin: 02/07/17 08:33 Dose: Not Given Insulin Glargine (Lantus) 50 unit SC BID [facility] Last Admin: 02/05/17 09:16 Dose: Not Given Midodrine (Proamatine) 5 mg PO TID [facility] Last Admin: 02/06/17 18:23 Dose: 5 mg Rosuvastatin Calcium (Crestor) 10 mg PO HS [facility] Last Admin: 02/06/17 21:58 Dose: 10 mg Sevelamer Carbonate (Renvela) 800 mg PO TID [facility] Last Admin: 02/06/17 18:23 Dose: 800 mg - Labs Labs: 02/07/17 06:46 02/07/17 06:46 PT 19.3 SECONDS (9.7-12.2) H 02/04/17 05:15 INR 1.7 02/04/17 05:15 APTT 35 SECONDS (21-34) H 02/04/17 05:15 - Constitutional Appears: Confused, Chronically Ill - Eye Exam Eye Exam: PERRL - ENT Exam ENT Exam: Mucous Membranes Dry - Respiratory Exam Respiratory Exam: Rales. absent: Clear to Ausculation Bilateral, Rhonchi, Wheezes - Cardiovascular Exam Cardiovascular Exam: Tachycardia, Irregular Rhythm, +S1, +S2 - GI/Abdominal Exam GI & Abdominal Exam: Soft, Normal Bowel Sounds. absent: Distended, Firm, Guarding, Rigid, Tenderness, Organomegaly - Extremities Exam Additional comments: 1+ LE edema - Neurological Exam Neurological Exam: Altered, Awake. 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 -S/P HD yesterday - on MWF schedule -Echocardiogram when patient more stable for exam -Pt may have cardiac catheterization; plan per cardiology -Check autoimmune panel: SALOMÓN, AMA negative; SMA, LKM-Ab pending -Hepatitis panel re-ordered as it has not been drawn yet -IgG level WNL -Recommend brain imaging given persistent AMS; consider CT head <Ti Love - Last Filed: 02/07/17 09:36> Objective - Vital Signs/Intake and Output Vital Signs (last 24 hours): Temp Pulse Resp BP Pulse Ox 98.5 F 119 H 16 105/60 96 02/07/17 04:00 02/07/17 09:04 02/07/17 09:04 02/07/17 09:04 02/07/17 09:04 Intake and Output: 02/07/17 02/07/17 06:59 18:59 Intake Total 150 0 Output Total 0 0 Balance 150 0 - Medications Medications: Current Medications Apixaban (Eliquis) 2.5 mg PO BID [facility] Last Admin: 02/07/17 09:19 Dose: Not Given Cinacalcet (Sensipar) 30 mg PO DAILY [facility] Last Admin: 02/06/17 18:23 Dose: 30 mg Clopidogrel Bisulfate (Plavix) 75 mg PO DAILY [facility] Last Admin: 02/07/17 09:20 Dose: Not Given Diltiazem HCl (Cardizem) 30 mg PO TID [facility] Last Admin: 02/07/17 09:27 Dose: 30 mg Epoetin Sj (Procrit) 10,000 unit IV MWF [facility] Famotidine (Pepcid) 20 mg PO DAILY [facility] Last Admin: 02/07/17 09:27 Dose: 20 mg Cefepime HCl 1 gm/ Sodium (Chloride) 100 mls @ 100 mls/hr IVPB Q24H [facility] Last Admin: 02/06/17 20:00 Dose: 100 mls/hr Insulin Aspart (Novolog) 0 unit SC ACHS [facility] PRN Reason: Protocol Last Admin: 02/07/17 08:33 Dose: Not Given Insulin Glargine (Lantus) 50 unit SC BID [facility] Last Admin: 02/05/17 09:16 Dose: Not Given Midodrine (Proamatine) 5 mg PO TID [facility] Last Admin: 02/07/17 09:27 Dose: 5 mg Rosuvastatin Calcium (Crestor) 10 mg PO HS [facility] Last Admin: 02/06/17 21:58 Dose: 10 mg Sevelamer Carbonate (Renvela) 800 mg PO TID [facility] Last Admin: 02/07/17 09:27 Dose: 800 mg - Labs Labs: 02/07/17 06:46 02/07/17 06:46 PT 19.3 SECONDS (9.7-12.2) H 02/04/17 05:15 INR 1.7 06/28/17 05:15 APTT 35 SECONDS (21-34) H 02/04/17 05:15 Attending/Attestation - Attestation I have personally seen and examined this patient.: Yes I have fully participated in the care of the patient.: Yes I have reviewed all pertinent clinical information, including history, physical exam and plan: Yes Notes (Text): 02/07/17 09:35 76 year old female with h/o Afib on Eliquis, CAD s/p CABG/PCI, CHF, ESRD on HD, DM, HTN, HLD admitted with SOB, also with elevated transaminases. 1. Elevated LFTs Plan: -elevated lfts are likely promotional representative of congestive hepatopathy in the setting of severe cardiac disease -await echo -LFTs downtrending/improving -will sign off at this time -further management of cad/chf per cardiology
--- NOTE | 2017-02-07 09:23 | CP.PCM.PN ---
Subjective - Date & Time of Evaluation Date of Evaluation: 02/07/17 Time of Evaluation: 09:21 - Subjective Subjective: s/p dialysis again 02/06- UF 2400ml Much less dyspneic now Now with AFib with [id number] Better appetite More alert now Lytes acceptable Objective - Vital Signs/Intake and Output Vital Signs (last 24 hours): Temp Pulse Resp BP Pulse Ox 98.5 F 119 H 16 105/60 96 02/07/17 04:00 02/07/17 09:04 02/07/17 09:04 02/07/17 09:04 02/07/17 09:04 Intake and Output: 02/07/17 02/07/17 06:59 18:59 Intake Total 150 0 Output Total 0 0 Balance 150 0 - Medications Medications: Current Medications Apixaban (Eliquis) 2.5 mg PO BID [facility] Last Admin: 02/06/17 18:24 Dose: Not Given Cinacalcet (Sensipar) 30 mg PO DAILY [facility] Last Admin: 02/06/17 18:23 Dose: 30 mg Clopidogrel Bisulfate (Plavix) 75 mg PO DAILY [facility] Last Admin: 02/06/17 18:22 Dose: Not Given Diltiazem HCl (Cardizem) 30 mg PO TID [facility] Epoetin Sj (Procrit) 10,000 unit IV MWF [facility] Famotidine (Pepcid) 20 mg PO DAILY [facility] Last Admin: 02/06/17 11:00 Dose: Not Given Cefepime HCl 1 gm/ Sodium (Chloride) 100 mls @ 100 mls/hr IVPB Q24H [facility] Last Admin: 02/06/17 20:00 Dose: 100 mls/hr Insulin Aspart (Novolog) 0 unit SC ACHS [facility] PRN Reason: Protocol Last Admin: 02/07/17 08:33 Dose: Not Given Insulin Glargine (Lantus) 50 unit SC BID [facility] Last Admin: 02/05/17 09:16 Dose: Not Given Midodrine (Proamatine) 5 mg PO TID [facility] Last Admin: 02/06/17 18:23 Dose: 5 mg Rosuvastatin Calcium (Crestor) 10 mg PO HS [facility] Last Admin: 02/06/17 21:58 Dose: 10 mg Sevelamer Carbonate (Renvela) 800 mg PO TID [facility] Last Admin: 02/06/17 18:23 Dose: 800 mg - Labs Labs: 02/07/17 06:46 02/07/17 06:46 PT 19.3 SECONDS (9.7-12.2) H 02/04/17 05:15 INR 1.7 02/04/17 05:15 APTT 35 SECONDS (21-34) H 02/04/17 05:15 - Constitutional Appears: No Acute Distress, Chronically Ill - Head Exam Head Exam: ATRAUMATIC, NORMAL INSPECTION - Eye Exam Eye Exam: EOMI, Normal appearance - Neck Exam Neck Exam: Normal Inspection. absent: Tenderness - Respiratory Exam Respiratory Exam: Rales, NORMAL BREATHING PATTERN - Cardiovascular Exam Cardiovascular Exam: Tachycardia, Irregular Rhythm - GI/Abdominal Exam GI & Abdominal Exam: Soft. absent: Tenderness - Extremities Exam Extremities Exam: Normal Inspection. absent: Tenderness - Neurological Exam Neurological Exam: Alert, CN II-XII Intact - Skin Skin Exam: Dry, Warm Assessment and Plan (1) Ischemic cardiomyopathy Status: Acute (2) Afib Status: Acute (3) Congestive heart failure Status: Acute (4) ESRD (end stage renal disease) on dialysis Status: Chronic (5) CAD (coronary artery disease) of artery bypass graft Status: Acute - Assessment and Plan (Free Text) Plan: HR control now- cardizem started as per ICU Hold dialysis today due to RVR, hypotension Reschedule dialysis in early AM
--- NOTE | 2017-02-07 09:51 | RAD ---
HISTORY: s/p central line placement COMPARISON: 02/06/2017. FINDINGS: The right IJV line is detected to as the right lateral side and terminates in the right subclavian vein. The left axillary stent is stable in position. LUNGS: There is mild pulmonary venous congestion. No consolidation. PLEURA: Small pleural effusions. No pneumothorax. CARDIOVASCULAR: There is redemonstration of moderate cardiomegaly and prominent central vasculature. OSSEOUS STRUCTURES: No significant abnormalities. VISUALIZED UPPER ABDOMEN: Normal. OTHER FINDINGS: None. IMPRESSION: Right IJV line is directed to versus the right lateral side and terminates in the right subclavian vein. Congestive heart failure.
[2017-02-07] MEDS: Cefepime 1 GM in Sodium Chloride 0.9% 100 ML IVPB SCH (13:25)
--- NOTE | 2017-02-07 21:07 | CP.PCM.PN ---
Subjective - Date & Time of Evaluation Date of Evaluation: 02/07/17 Objective - Vital Signs/Intake and Output Vital Signs (last 24 hours): Temp Pulse Resp BP Pulse Ox 98.5 F 119 H 16 105/60 96 02/07/17 04:00 02/07/17 09:04 02/07/17 09:04 02/07/17 09:04 02/07/17 09:04 Intake and Output: 02/07/17 02/08/17 18:59 06:59 Intake Total 0 Output Total 0 Balance 0 - Medications Medications: Current Medications Apixaban (Eliquis) 2.5 mg PO BID [facility] Last Admin: 02/07/17 09:19 Dose: Not Given Cinacalcet (Sensipar) 30 mg PO DAILY [facility] Last Admin: 02/07/17 10:26 Dose: 30 mg Clopidogrel Bisulfate (Plavix) 75 mg PO DAILY [facility] Last Admin: 02/07/17 09:20 Dose: Not Given Diltiazem HCl (Cardizem) 30 mg PO TID [facility] Last Admin: 02/07/17 13:25 Dose: 30 mg Epoetin Sj (Procrit) 10,000 unit IV MWF [facility] Famotidine (Pepcid) 20 mg PO DAILY [facility] Last Admin: 02/07/17 09:27 Dose: 20 mg Cefepime HCl 1 gm/ Sodium (Chloride) 100 mls @ 100 mls/hr IVPB Q24H [facility] Last Admin: 02/07/17 13:25 Dose: 100 mls/hr Insulin Aspart (Novolog) 0 unit SC ACHS [facility] PRN Reason: Protocol Last Admin: 02/07/17 12:25 Dose: 3 unit Insulin Glargine (Lantus) 50 unit SC BID [facility] Last Admin: 02/05/17 09:16 Dose: Not Given Midodrine (Proamatine) 5 mg PO TID [facility] Last Admin: 02/07/17 13:26 Dose: 5 mg Rosuvastatin Calcium (Crestor) 10 mg PO HS [facility] Last Admin: 02/06/17 21:58 Dose: 10 mg Sevelamer Carbonate (Renvela) 800 mg PO TID [facility] Last Admin: 02/07/17 13:26 Dose: 800 mg - Labs Labs: 02/07/17 06:46 02/07/17 06:46 PT 19.3 SECONDS (9.7-12.2) H 02/04/17 05:15 INR 1.7 02/04/17 05:15 APTT 35 SECONDS (21-34) H 02/04/17 05:15
[2017-02-07] MEDS: (Lantus) Insulin Glargine, Recombinant SC SCH (22:24)
[2017-02-08 06:31] LABS: BASO % 0.7 % (0.0-2.0); EOS # 0.1 K/uL (0.0-0.7); EOS % 1.8 % (0.0-4.0); HEMOGLOBIN 10.4 g/dL (11.0-16.0); LYMPH # 0.6 K/uL (1.0-4.3); LYMPH % 12.2 % (20.0-40.0); MEAN CELL VOLUME 100.3 fL (81.0-99.0); MEAN CORPUSCULAR HGB CONC 31.9 g/dL (33.0-37.0); MEAN PLATELET VOLUME 9.6 fL (7.2-11.7); MONO # 0.5 K/uL (0.0-0.8); MONO % 10.9 % (0.0-10.0); NEUT # 3.7 K/uL (1.8-7.0); NEUT % 74.4 % (50.0-75.0); NRBC % 0.7 % (0.0-2.0); RBC 3.23 Mil/uL (3.80-5.20); RED CELL DISTRIBUTION WIDTH 16.3 % (11.5-14.5); WHITE BLOOD COUNT 4.9 K/uL (4.8-10.8)
[2017-02-08 06:49] LABS: ALBUMIN 3.4 g/dL (3.5-5.0)
[2017-02-08 06:52] LABS: ALB/GLOB RATIO 1.1 (1.0-2.1)
[2017-02-08 06:53] LABS: CALCIUM 7.8 mg/dl (8.6-10.4); MAGNESIUM 2.3 mg/dL (1.6-2.3)
--- NOTE | 2017-02-08 07:05 | CP.PCM.PN ---
Subjective - Date & Time of Evaluation Date of Evaluation: 02/08/17 Time of Evaluation: 10:40 - Subjective Subjective: clinically same Objective - Vital Signs/Intake and Output Vital Signs (last 24 hours): Temp Pulse Resp BP Pulse Ox 98.4 F 92 H 21 115/65 99 02/08/17 04:00 02/08/17 05:04 02/08/17 05:04 02/08/17 05:04 02/08/17 05:04 Intake and Output: 02/08/17 02/08/17 06:59 18:59 Intake Total 180 Output Total 0 Balance 180 - Medications Medications: Current Medications Apixaban (Eliquis) 2.5 mg PO BID [facility] Last Admin: 02/07/17 09:19 Dose: Not Given Cinacalcet (Sensipar) 30 mg PO DAILY [facility] Last Admin: 02/07/17 10:26 Dose: 30 mg Clopidogrel Bisulfate (Plavix) 75 mg PO DAILY [facility] [place] Last Admin: 02/07/17 09:20 Dose: Not Given Diltiazem HCl (Cardizem) 30 mg PO TID [facility] [place] Last Admin: 02/07/17 13:25 Dose: 30 mg Epoetin Sj (Procrit) 10,000 unit IV MWF [facility] Famotidine (Pepcid) 20 mg PO DAILY [facility] Last Admin: 02/07/17 09:27 Dose: 20 mg Cefepime HCl 1 gm/ Sodium (Chloride) 100 mls @ 100 mls/hr IVPB Q24H [facility] [place] Last Admin: 02/07/17 13:25 Dose: 100 mls/hr Insulin Aspart (Novolog) 0 unit SC [facility] PRN Reason: Protocol Last Admin: 02/07/17 22:24 Dose: 3 unit Insulin Glargine (Lantus) 50 unit SC [facility] Last Admin: 02/07/17 22:24 Dose: 50 u Midodrine (Proamatine) 5 mg PO TID [facility] [place] Last Admin: 02/07/17 13:26 Dose: 5 mg Rosuvastatin Calcium (Crestor) 10 mg PO [facility] Last Admin: 02/07/17 21:23 Dose: 10 mg Sevelamer Carbonate (Renvela) 800 mg PO TID [facility] Last Admin: 02/07/17 13:26 Dose: 800 mg - Labs Labs: 02/08/17 06:15 02/08/17 06:15 PT 19.3 SECONDS (9.7-12.2) H 02/04/17 05:15 INR 1.7 02/04/17 05:15 APTT 35 SECONDS (21-34) H 02/04/17 05:15 - Constitutional Appears: Well - Head Exam Head Exam: ATRAUMATIC, NORMAL INSPECTION, NORMOCEPHALIC - Eye Exam Eye Exam: EOMI, Normal appearance, PERRL Pupil Exam: NORMAL ACCOMODATION, PERRL - ENT Exam ENT Exam: Mucous Membranes Moist, Normal Exam - Neck Exam Neck Exam: Full ROM, Normal Inspection. absent: Lymphadenopathy - Respiratory Exam Respiratory Exam: Decreased Breath Sounds - Cardiovascular Exam Cardiovascular Exam: REGULAR RHYTHM, +S1, +S2 - GI/Abdominal Exam GI & Abdominal Exam: Soft, Diminished Bowel Sounds - Rectal Exam Rectal Exam: Deferred
[2017-02-08 07:17] LABS: HEPATITIS B SURFACE AG NEGATIVE (NEGATIVE)
[2017-02-08 07:22] LABS: HEPATITIS A IGM NEGATIVE (NEGATIVE); HEPATITIS B CORE AB NEGATIVE (NEGATIVE)
[2017-02-08 07:34] LABS: HEPATITIS C ANTIBODY NEGATIVE (NEGATIVE)
--- NOTE | 2017-02-08 08:31 | CP.CCUPN ---
CCU Subjective - Physician Review Events Since Last Encounter (Free Text): 02/08/17 08:28 Patient is comfortable. Blood pressure stable. No chest pain. Mild weakness noted. Tachycardia less. CCU Objective - Vital Signs / Intake & Output Vital Signs (Last 4 hours): Vital Signs Pulse Resp BP Pulse Ox 02/08/17 08:04 86 16 120/69 99 02/08/17 08:00 85 14 99 02/08/17 07:04 90 25 H 115/68 98 02/08/17 07:00 87 13 98 02/08/17 06:04 79 14 115/70 100 02/08/17 06:00 86 14 99 02/08/17 05:04 92 H 21 115/65 99 02/08/17 05:00 94 H 12 97 Intake and Output (Last 8hrs): Intake & Output 02/07/17 02/08/17 02/08/17 22:59 06:59 14:59 Intake Total 180 0 0 Output Total 0 0 Balance 180 0 0 Intake: Oral 180 0 0 Output: Urine 0 0 Urine, Voided 0 0 - Physical Exam Narrative Physical Exam (Free Text): 02/08/17 08:31 Vital signs reviewed No neck vein distention noted Chest good air entry bilaterally, no wheezing or rales noted CVS regular heart sound, no murmur noted Abdomen soft, nontender. 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 oriented 3, no functional neurological deficit - Medications Active Medications: Active Medications Generic Name Dose Route Start Last Admin Trade Name Freq PRN Reason Stop Dose Admin Apixaban 2.5 mg 02/04/17 10:00 02/08/17 08:26 Eliquis PO Not Given BID DON Cinacalcet 30 mg 02/04/17 10:00 02/07/17 10:26 Sensipar PO 30 mg DAILY DON Administration Clopidogrel Bisulfate 75 mg 02/04/17 10:00 02/07/17 09:20 Plavix PO Not Given DAILY DON Diltiazem HCl 30 mg 02/07/17 10:00 02/08/17 08:26 Cardizem PO Not Given TID DON Epoetin Sj 10,000 unit 02/09/17 09:00 Procrit IV MWF DON Famotidine 20 mg 02/04/17 10:00 02/07/17 09:27 Pepcid PO 20 mg DAILY DON Administration Cefepime HCl 1 gm/ Sodium 100 mls @ 100 mls/hr 02/06/17 13:00 02/07/17 13:25 Chloride IVPB 100 mls/hr Q24H DON Administration Insulin Aspart 0 unit 02/06/17 22:00 02/07/17 22:24 Novolog SC 3 unit ACHS DON Administration Protocol Insulin Glargine 50 unit 02/07/17 22:00 02/07/17 22:24 Lantus SC 50 u HS DON Administration Midodrine 5 mg 02/06/17 14:00 02/08/17 08:27 Proamatine PO Not Given TID DON Rosuvastatin Calcium 10 mg 02/04/17 22:00 02/07/17 21:23 Crestor PO 10 mg HS DON Administration Sevelamer Carbonate 800 mg 02/04/17 10:00 02/08/17 08:27 Renvela PO Not Given TID DON - Patient Studies Lab Studies: Microbiology Studies 02/06/17 12:00 MRSA Culture (Admit) - Final Naris MRSA NOT DETECTED 02/06/17 15:00 Blood Culture - Preliminary Blood-Venous NO GROWTH AFTER 24 HOURS 02/06/17 13:45 Blood Culture - Preliminary Blood-Venous NO GROWTH AFTER 24 HOURS 02/05/17 10:21 Blood Culture - Preliminary Blood NO GROWTH AFTER 48 HOURS 02/05/17 10:21 Blood Culture - Preliminary Blood NO GROWTH AFTER 48 HOURS Lab Studies 02/08/17 02/08/17 02/08/17 Range/Units 06:15 06:15 06:15 WBC 4.9 (4.8-10.8) K/uL RBC 3.23 L (3.80-5.20) Mil/uL Hgb 10.4 L (11.0-16.0) g/dL Hct 32.4 L (34.0-47.0) % MCV 100.3 H (81.0-99.0) fL MCH 32.0 H (27.0-31.0) pg MCHC 31.9 L (33.0-37.0) g/dL RDW 16.3 H (11.5-14.5) % Plt Count 96 L (130-400) K/uL MPV 9.6 (7.2-11.7) fL Neut % (Auto) 74.4 (50.0-75.0) % Lymph % (Auto) 12.2 L (20.0-40.0) % [place] % (Auto) 10.9 H (0.0-10.0) % Eos % (Auto) 1.8 (0.0-4.0) % Baso % (Auto) 0.7 (0.0-2.0) % Neut # 3.7 (1.8-7.0) K/uL Lymph # 0.6 L (1.0-4.3) K/uL [place] # 0.5 (0.0-0.8) K/uL Eos # 0.1 (0.0-0.7) K/uL Baso # 0.0 (0.0-0.2) K/uL Sodium 132 (132-148) mmol/L Potassium 4.1 (3.6-5.2) mmol/L Chloride 92 L (98-107) mmol/L Carbon Dioxide 28 (22-30) mmol/L Anion Gap 16 (10-20) BUN 43 H (7-17) mg/dL Creatinine 4.9 H (0.7-1.2) MG/DL Est GFR ( Amer) 10 Est GFR (Non-Af Amer) 9 POC Glucose (mg/dL) (65-110) mg/dL Random Glucose 160 H (65-105) mg/dL Calcium 7.8 L (8.6-10.4) mg/dl Phosphorus 2.9 (2.5-4.5) mg/dL Magnesium 2.3 (1.6-2.3) mg/dL Total Bilirubin 1.1 (0.2-1.3) mg/dL AST 149 H D (14-36) U/L ALT 380 H D (9-52) U/L Alkaline Phosphatase 117 (38-126) U/L Total Protein 6.6 (6.3-8.3) g/dL Albumin 3.4 L (3.5-5.0) g/dL Globulin 3.2 (2.2-3.9) gm/dL Albumin/Globulin Ratio 1.1 (1.0-2.1) Liver/Kid Microsomes Ab (<=20.0) U Hepatitis A IgM Ab Negative (NEGATIVE) Hep Bs Antigen Negative (NEGATIVE) Hep B Core IgM Ab Negative (NEGATIVE) Hepatitis C Antibody Negative (NEGATIVE) 02/08/17 02/07/17 02/07/17 Range/Units 02:03 21:36 16:13 WBC (4.8-10.8) K/uL RBC (3.80-5.20) Mil/uL Hgb (11.0-16.0) g/dL Hct (34.0-47.0) % MCV (81.0-99.0) fL MCH (27.0-31.0) pg MCHC (33.0-37.0) g/dL RDW (11.5-14.5) % Plt Count (130-400) K/uL MPV (7.2-11.7) fL Neut % (Auto) (50.0-75.0) % Lymph % (Auto) (20.0-40.0) % [place] % (Auto) (0.0-10.0) % Eos % (Auto) (0.0-4.0) % Baso % (Auto) (0.0-2.0) % Neut # (1.8-7.0) K/uL Lymph # (1.0-4.3) K/uL [place] # (0.0-0.8) K/uL Eos # (0.0-0.7) K/uL Baso # (0.0-0.2) K/uL Sodium (132-148) mmol/L Potassium (3.6-5.2) mmol/L Chloride (98-107) mmol/L Carbon Dioxide (22-30) mmol/L Anion Gap (10-20) BUN (7-17) mg/dL Creatinine (0.7-1.2) MG/DL Est GFR ( Amer) Est GFR (Non-Af Amer) POC Glucose (mg/dL) 253 H 359 H 356 H (65-110) mg/dL Random Glucose (65-105) mg/dL Calcium (8.6-10.4) mg/dl Phosphorus (2.5-4.5) mg/dL Magnesium (1.6-2.3) mg/dL Total Bilirubin (0.2-1.3) mg/dL AST (14-36) U/L ALT (9-52) U/L Alkaline Phosphatase (38-126) U/L Total Protein (6.3-8.3) g/dL Albumin (3.5-5.0) g/dL Globulin (2.2-3.9) gm/dL Albumin/Globulin Ratio (1.0-2.1) Liver/Kid Microsomes Ab (<=20.0) U Hepatitis A IgM Ab (NEGATIVE) Hep Bs Antigen (NEGATIVE) Hep B Core IgM Ab (NEGATIVE) Hepatitis C Antibody (NEGATIVE) 02/07/17 02/05/17 Range/Units 11:15 12:00 WBC (4.8-10.8) K/uL RBC (3.80-5.20) Mil/uL Hgb (11.0-16.0) g/dL Hct (34.0-47.0) % MCV (81.0-99.0) fL MCH (27.0-31.0) pg MCHC (33.0-37.0) g/dL RDW (11.5-14.5) % Plt Count (130-400) K/uL MPV (7.2-11.7) fL Neut % (Auto) (50.0-75.0) % Lymph % (Auto) (20.0-40.0) % [place] % (Auto) (0.0-10.0) % Eos % (Auto) (0.0-4.0) % Baso % (Auto) (0.0-2.0) % Neut # (1.8-7.0) K/uL Lymph # (1.0-4.3) K/uL [place] # (0.0-0.8) K/uL Eos # (0.0-0.7) K/uL Baso # (0.0-0.2) K/uL Sodium (132-148) mmol/L Potassium (3.6-5.2) mmol/L Chloride (98-107) mmol/L Carbon Dioxide (22-30) mmol/L Anion Gap (10-20) BUN (7-17) mg/dL Creatinine (0.7-1.2) MG/DL Est GFR ( Amer) Est GFR (Non-Af Amer) POC Glucose (mg/dL) 236 H (65-110) mg/dL Random Glucose (65-105) mg/dL Calcium (8.6-10.4) mg/dl Phosphorus (2.5-4.5) mg/dL Magnesium (1.6-2.3) mg/dL Total Bilirubin (0.2-1.3) mg/dL AST (14-36) U/L ALT (9-52) U/L Alkaline Phosphatase (38-126) U/L Total Protein (6.3-8.3) g/dL Albumin (3.5-5.0) g/dL Globulin (2.2-3.9) gm/dL Albumin/Globulin Ratio (1.0-2.1) Liver/Kid Microsomes Ab <=20.0 (<=20.0) U Hepatitis A IgM Ab (NEGATIVE) Hep Bs Antigen (NEGATIVE) Hep B Core IgM Ab (NEGATIVE) Hepatitis C Antibody (NEGATIVE) Laboratory Results - last 24 hr 02/05/17 02/07/17 02/07/17 12:00 11:15 16:13 WBC RBC Hgb Hct MCV MCH MCHC RDW Plt Count MPV Neut % (Auto) Lymph % (Auto) [place] % (Auto) Eos % (Auto) Baso % (Auto) Neut # Lymph # [place] # Eos # Baso # Sodium Potassium Chloride Carbon Dioxide Anion Gap BUN Creatinine Est GFR ( Amer) Est GFR (Non-Af Amer) POC Glucose (mg/dL) 236 H 356 H Random Glucose Calcium Phosphorus Magnesium Total Bilirubin AST ALT Alkaline Phosphatase Total Protein Albumin Globulin Albumin/Globulin Ratio Liver/Kid Microsomes Ab <=20.0 Hepatitis A IgM Ab Hep Bs Antigen Hep B Core IgM Ab Hepatitis C Antibody 02/07/17 02/08/17 02/08/17 21:36 02:03 06:15 WBC RBC Hgb Hct MCV MCH MCHC RDW Plt Count MPV Neut % (Auto) Lymph % (Auto) [place] % (Auto) Eos % (Auto) Baso % (Auto) Neut # Lymph # [place] # Eos # Baso # Sodium Potassium Chloride Carbon Dioxide Anion Gap BUN Creatinine Est GFR ( Amer) Est GFR (Non-Af Amer) POC Glucose (mg/dL) 359 H 253 H Random Glucose Calcium Phosphorus Magnesium Total Bilirubin AST ALT Alkaline Phosphatase Total Protein Albumin Globulin Albumin/Globulin Ratio Liver/Kid Microsomes Ab Hepatitis A IgM Ab Negative Hep Bs Antigen Negative Hep B Core IgM Ab Negative Hepatitis C Antibody Negative 02/08/17 02/08/17 06:15 06:15 WBC 4.9 RBC 3.23 L Hgb 10.4 L Hct 32.4 L MCV 100.3 H MCH 32.0 H MCHC 31.9 L RDW 16.3 H Plt Count 96 L MPV 9.6 Neut % (Auto) 74.4 Lymph % (Auto) 12.2 L [place] % (Auto) 10.9 H Eos % (Auto) 1.8 Baso % (Auto) 0.7 Neut # 3.7 Lymph # 0.6 L [place] # 0.5 Eos # 0.1 Baso # 0.0 Sodium 132 Potassium 4.1 Chloride 92 L Carbon Dioxide 28 Anion Gap 16 BUN 43 H Creatinine 4.9 H Est GFR ( Amer) 10 Est GFR (Non-Af Amer) 9 POC Glucose (mg/dL) Random Glucose 160 H Calcium 7.8 L Phosphorus 2.9 Magnesium 2.3 Total Bilirubin 1.1 AST 149 H D ALT 380 H D Alkaline Phosphatase 117 Total Protein 6.6 Albumin 3.4 L Globulin 3.2 Albumin/Globulin Ratio 1.1 Liver/Kid Microsomes Ab Hepatitis A IgM Ab Hep Bs Antigen Hep B Core IgM Ab Hepatitis C Antibody Fingerstick Blood Sugar Results: 359 Critical Care Progress Note - Nutrition Nutrition: Nutrition Category Date Time Status Renal Diet [DIET] Diets 02/04/17 Dinner Active Assessment/Plan - Assessment and Plan (Free Text) Assessment: 76-year-old female with history of ESRD, hypertension, on hemodialysis. CAD, tatus post a CABG, admitted to the ICU with hypotension, tachycardia, dyspnea. Stable now. She will get dialysis today. We'll transfer the patient after the dialysis
[2017-02-08] MEDS: Cefepime 1 GM in Sodium Chloride 0.9% 100 ML IVPB SCH (14:55)
[2017-02-08] MEDS: (Novolog) Insulin Aspart, Recombinant 100 u/ml 10 ml vial SC SCH ×4 (17:57→21:28)
[2017-02-08] MEDS: (Lantus) Insulin Glargine, Recombinant SC SCH (21:32)
[2017-02-09] MEDS: (Novolog) Insulin Aspart, Recombinant 100 u/ml 10 ml vial SC SCH ×3 (07:54→21:20)
--- NOTE | 2017-02-09 09:29 | CP.PCM.PN ---
Subjective - Date & Time of Evaluation Date of Evaluation: 02/09/17 Time of Evaluation: 11:15 - Subjective Subjective: PGY 2 Medicine Note- Dr. Esperanza Peterson's service Pt seen and examined in no acute distress. Pt recently downgraded from the ICU with noted improvement. She states that she did not get much sleep last night. Patient expressed some discomfort with speaking. She also complains of lower extremity pain bilaterally. She denies chest pain, palpitations, headaches, nausea, vomiting or diarrhea at this time. Objective - Vital Signs/Intake and Output Vital Signs (last 24 hours): Temp Pulse Resp BP Pulse Ox 98 F 94 H 18 133/86 95 02/09/17 07:40 02/09/17 07:40 02/09/17 07:40 02/09/17 07:40 02/09/17 07:40 Intake and Output: 02/09/17 02/09/17 06:59 18:59 Intake Total 75 Output Total 0 Balance 75 - Medications Medications: Current Medications Apixaban (Eliquis) 2.5 mg PO BID [facility] Last Admin: 02/08/17 17:56 Dose: 2.5 mg Cinacalcet (Sensipar) 30 mg PO DAILY [facility] Last Admin: 02/08/17 17:51 Dose: 30 mg Clopidogrel Bisulfate (Plavix) 75 mg PO DAILY [facility] Last Admin: 02/08/17 17:55 Dose: 75 mg Diltiazem HCl (Cardizem) 30 mg PO TID [facility] Last Admin: 02/08/17 17:56 Dose: 30 mg Epoetin Sj (Procrit) 10,000 unit IV MWF [facility] Famotidine (Pepcid) 20 mg PO DAILY [facility] Last Admin: 02/08/17 17:55 Dose: 20 mg Cefepime HCl 1 gm/ Sodium (Chloride) 100 mls @ 100 mls/hr IVPB Q24H [facility] Last Admin: 02/08/17 14:55 Dose: 100 mls/hr Insulin Aspart (Novolog) 0 unit SC ACHS [facility] PRN Reason: Protocol Last Admin: 02/09/17 07:54 Dose: Not Given Insulin Glargine (Lantus) 50 unit SC HS [facility] Last Admin: 02/08/17 21:32 Dose: 50 u Midodrine (Proamatine) 5 mg PO TID [facility] Last Admin: 02/08/17 17:55 Dose: Not Given Rosuvastatin Calcium (Crestor) 10 mg PO HS [facility] Last Admin: 02/08/17 21:33 Dose: 10 mg Sevelamer Carbonate (Renvela) 800 mg PO TID [facility] Last Admin: 02/08/17 17:52 Dose: Not Given - Labs Labs: 02/08/17 06:15 02/08/17 06:15 PT 19.3 SECONDS (9.7-12.2) H 02/04/17 05:15 INR 1.7 02/04/17 05:15 APTT 35 SECONDS (21-34) H 02/04/17 05:15 - Constitutional Appears: Non-toxic, No Acute Distress - Head Exam Head Exam: ATRAUMATIC, NORMAL INSPECTION, NORMOCEPHALIC - Eye Exam Eye Exam: EOMI, Normal appearance, PERRL Pupil Exam: NORMAL ACCOMODATION - ENT Exam ENT Exam: Mucous Membranes Moist - Neck Exam Neck Exam: Full ROM - Respiratory Exam Respiratory Exam: NORMAL BREATHING PATTERN. absent: Wheezes - Cardiovascular Exam Cardiovascular Exam: Irregular Rhythm, +S1, +S2 - GI/Abdominal Exam GI & Abdominal Exam: Soft, Normal Bowel Sounds. absent: Tenderness - Back Exam Back Exam: Full ROM, tenderness (b/l LE, diffuse) - Neurological Exam Neurological Exam: Alert, Oriented x3 - Psychiatric Exam Psychiatric exam: Flat Affect - Skin Skin Exam: Dry, Intact, Warm Assessment and Plan - Assessment and Plan (Free Text) Assessment: 1. CHF exacerbation Continued telemetry monitoring BNP 83731 on admission 02/[address] Seo consulted- per note, BNP likely elevated secondary to ESRD f/u ECHO results 2. Elevated troponins ROMIs 0.864--> 1.56 EKG on admission showed A fib @72bpm, ST and T wave changes f/u 3rd DIYA Placement Specialist Dr Seo consulted- Per pony edger note, elevated troponin likely secondary to hypotension. Patient will need cardiac catheterization. 3. A fib Rate controlled CHADS2-VASC score 7 points Eliquis 2.5mg PO BID Cardizem 60mg PO QID 4. CAD s/p PCI and CABG Crestor 10mg PO HS Plavix 75mg PO daily f/u cardiac cath 5. Hypotension Patient's bp has been low since admission. Evaluated by ferruler Dr Robert yesterday. BP meds Norvasc and Cardizem on holding parameters. Monitor vitals q4h 6. Transaminitis AST 471, ALT [address] Burt consulted- help appreciated U/S noted with hepatic steatosis; patent portal vasculature Check Hepatitis panel Check autoimmune panel: SALOMÓN, AMA, SMA, LKM-Ab, IgG level 7. ESRD on HD Nephro Dr Barroso consulted Continue HD MWF 8. DM BS in 200s Accuchecks ISS Lantus 50u SC BID 9. Prophylactic Measures SCDs Eliquis Pepcid PT eval- will f/u recommendations Discharge planning to [facility] All orders per Dr Zina Peterson. Discussed with attending.
--- NOTE | 2017-02-09 11:00 | CP.PCM.PN ---
Subjective - Date & Time of Evaluation Date of Evaluation: 02/09/17 Time of Evaluation: 10:59 - Subjective Subjective: PGY2 progress note for Dr. Seo Pt seen and examined at bedside. She was transferred from ICU to [address] [place] [address] last night. No acute events overnight. She is alert and conversing. She denies CP, SOB, coughing. Pt was scheduled for cardiac cath today but has been rescheduled to 02/11/17 due to Eliquis. Objective - Vital Signs/Intake and Output Vital Signs (last 24 hours): Temp Pulse Resp BP Pulse Ox 98 F 94 H 18 133/86 95 02/09/17 07:40 02/09/17 07:40 02/09/17 07:40 02/09/17 07:40 02/09/17 07:40 Intake and Output: 02/09/17 02/09/17 06:59 18:59 Intake Total 75 Output Total 0 Balance 75 - Medications Medications: Current Medications Apixaban (Eliquis) 2.5 mg PO BID [facility] Last Admin: 02/09/17 10:54 Dose: Not Given Cinacalcet (Sensipar) 30 mg PO DAILY [facility] Last Admin: 02/09/17 10:55 Dose: Not Given Clopidogrel Bisulfate (Plavix) 75 mg PO DAILY [facility] Last Admin: 02/09/17 10:54 Dose: Not Given Diltiazem HCl (Cardizem) 30 mg PO TID [facility] Last Admin: 02/09/17 10:51 Dose: 30 mg Epoetin Sj (Procrit) 10,000 unit IV MWF [facility] Famotidine (Pepcid) 20 mg PO DAILY [facility] Last Admin: 02/09/17 10:55 Dose: Not Given Cefepime HCl 1 gm/ Sodium (Chloride) 100 mls @ 100 mls/hr IVPB Q24H [facility] Last Admin: 02/08/17 14:55 Dose: 100 mls/hr Insulin Aspart (Novolog) 0 unit SC ACHS [facility] PRN Reason: Protocol Last Admin: 02/09/17 07:54 Dose: Not Given Insulin Glargine (Lantus) 50 unit SC HS [facility] Last Admin: 02/08/17 21:32 Dose: 50 u Midodrine (Proamatine) 5 mg PO TID [facility] Last Admin: 02/09/17 10:55 Dose: Not Given Rosuvastatin Calcium (Crestor) 10 mg PO HS [facility] Last Admin: 02/08/17 21:33 Dose: 10 mg Sevelamer Carbonate (Renvela) 800 mg PO TID [facility] Last Admin: 02/09/17 10:55 Dose: Not Given - Labs Labs: 02/08/17 06:15 02/08/17 06:15 PT 19.3 SECONDS (9.7-12.2) H 02/04/17 05:15 INR 1.7 02/04/17 05:15 APTT 35 SECONDS (21-34) H 02/04/17 05:15 - Constitutional Appears: No Acute Distress - Eye Exam Eye Exam: EOMI - ENT Exam ENT Exam: Mucous Membranes Moist - Respiratory Exam Respiratory Exam: Decreased Breath Sounds, Clear to Ausculation Bilateral. absent: Chest Wall Tenderness - Cardiovascular Exam Cardiovascular Exam: REGULAR RHYTHM - GI/Abdominal Exam GI & Abdominal Exam: Soft. absent: Distended, Tenderness Additional comments: abdominal obesity - Extremities Exam Extremities Exam: absent: Pedal Edema, Tenderness - Neurological Exam Neurological Exam: Alert, Awake, Oriented x3 - Skin Skin Exam: Dry, Warm Assessment and Plan - Assessment and Plan (Free Text) Assessment: 76 y/o F with PMHx of atrial fibrillation on Eliquis, CAD s/p PCI and 4 vessel CABG on Plavix, ESRD on HD MWF, DM, HTN, HL p/w CHF exacerbation Plan: 1. CHF exacerbation Monitor on telemetry Pt scheduled for cath on 02/11/17 Holding eliquis for cath starting today ECHO shows EF of 55% on prelim reading- f/u final read 2. A fib Rate controlled CHADS2-VASC score 7 points Eliquis 2.5mg PO BID- currently on hold for cath on thursday Cardizem 60mg PO QID 3. CAD s/p PCI and CABG Crestor 10mg PO HS Plavix 75mg PO daily f/u cardiac cath
--- NOTE | 2017-02-09 11:41 | CP.PCM.PN ---
Subjective - Date & Time of Evaluation Date of Evaluation: 02/09/17 Time of Evaluation: 11:37 - Subjective Subjective: s/p dialysis 7/2- UF 2000ml Less tachycardic now- VR around 90-100s Still moderately dyspneic BP better with midodrine use Phos decreased - stop renvela Objective - Vital Signs/Intake and Output Vital Signs (last 24 hours): Temp Pulse Resp BP Pulse Ox 98 F 94 H 18 133/86 95 02/09/17 07:40 02/09/17 07:40 02/09/17 07:40 02/09/17 07:40 02/09/17 07:40 Intake and Output: 02/09/17 02/09/17 06:59 18:59 Intake Total 75 Output Total 0 Balance 75 - Medications Medications: Current Medications Apixaban (Eliquis) 2.5 mg PO BID [facility] Last Admin: 02/08/17 17:56 Dose: 2.5 mg Clopidogrel Bisulfate (Plavix) 75 mg PO DAILY [facility] Last Admin: 02/08/17 17:55 Dose: 75 mg Diltiazem HCl (Cardizem) 30 mg PO TID [facility] Last Admin: 02/09/17 10:51 Dose: 30 mg Epoetin Sj (Procrit) 10,000 unit IV MWF [facility] Famotidine (Pepcid) 20 mg PO DAILY [facility] Last Admin: 02/08/17 17:55 Dose: 20 mg Cefepime HCl 1 gm/ Sodium (Chloride) 100 mls @ 100 mls/hr IVPB Q24H [facility] Last Admin: 02/08/17 14:55 Dose: 100 mls/hr Insulin Aspart (Novolog) 0 unit SC [facility] PRN Reason: Protocol Last Admin: 02/09/17 07:54 Dose: Not Given Insulin Glargine (Lantus) [address] [facility] Last Admin: 02/08/17 21:32 Dose: 50 u Midodrine (Proamatine) 5 mg PO TID [facility] Last Admin: 02/08/17 17:55 Dose: Not Given Rosuvastatin Calcium (Crestor) [address] [facility] Last Admin: 02/08/17 21:33 Dose: 10 mg Sevelamer Carbonate (Renvela) 800 mg PO TID [facility] Last Admin: 02/08/17 17:52 Dose: Not Given - Labs Labs: 02/08/17 06:15 02/08/17 06:15 PT 19.3 SECONDS (9.7-12.2) H 02/04/17 05:15 INR 1.7 02/04/17 05:15 APTT 35 SECONDS (21-34) H 02/04/17 05:15 - Constitutional Appears: No Acute Distress, Chronically Ill - Head Exam Head Exam: ATRAUMATIC, NORMAL INSPECTION - Eye Exam Eye Exam: EOMI, Normal appearance - Neck Exam Neck Exam: Normal Inspection. absent: Tenderness - Respiratory Exam Respiratory Exam: Rales, Respiratory Distress - Cardiovascular Exam Cardiovascular Exam: Tachycardia, Irregular Rhythm - GI/Abdominal Exam GI & Abdominal Exam: Soft. absent: Tenderness - Extremities Exam Extremities Exam: Normal Inspection. absent: Tenderness - Neurological Exam Neurological Exam: Awake, CN II-XII Intact - Skin Skin Exam: Dry, Warm Assessment and Plan (1) Ischemic cardiomyopathy Status: Acute (2) Afib Status: Acute (3) Congestive heart failure Status: Acute (4) ESRD (end stage renal disease) on dialysis Status: Chronic (5) CAD (coronary artery disease) of artery bypass graft Status: Acute - Assessment and Plan (Free Text) Plan: Extra dialysis today Stop renvela Possible cardiac cath Continue midodrine for BP support HR control with diltiazem
[2017-02-09] MEDS: Cefepime 1 GM in Sodium Chloride 0.9% 100 ML IVPB SCH (12:39)
--- NOTE | 2017-02-09 14:52 | CARD ---
APPROVED REPORT EXAM: Two-dimensional and M-mode echocardiogram with Doppler and color Doppler. Other Information Quality : GoodRhythm : NSR INDICATION Atrial Fibrillation CAD Congestive Heart Failure dialysid esrd Surgery/Intervention CABG: RISK FACTORS Hyperlipidemia Diabetes M-Mode DIMENSIONS RVDd4.45 (2.1-3.2cm)Left Atrium (MM)4.96 (2.5-4.0cm) IVSd0.98 (0.7-1.1cm)Aortic Root2.46 (2.2-3.7cm) LVDd4.06 (4.0-5.6cm)Aortic Cusp Exc.1.87 (1.5-2.0cm) PWd0.82 (0.7-1.1cm)FS (%) 28 % LVDs2.93 (2.0-3.8cm)LVEF (%)55 (>50%) Mitral Valve MV E [id number]/sE/A ratio0.0 TDI E/Lateral E'0.0E/Medial E'0.0 Tricuspid Valve TR Peak [id number] Peak [id number] LEFT VENTRICLE The left ventricle is normal size. There is normal left ventricular wall thickness. The left ventricular function is normal. The left ventricular ejection fraction is within the normal range. About 60%. Septal motion is paradoxical. The left ventricular diastolic function is indeterminate. No left ventricle thrombus noted on this study. There is no ventricular septal defect visualized. There is no left ventricular aneurysm. There is no mass noted in the left ventricle. RIGHT VENTRICLE The right ventricle is severely dilated. Systolic function is severely reduced. ATRIA The left atrial volume index is markedly dilated. The right atrium size is severelyd dilated. The interatrial septum is intact with no evidence for an atrial septal defect. AORTIC VALVE The aortic valve is normal in structure and function. No aortic regurgitation is present. There is no aortic valvular stenosis. There is no aortic valvular vegetation. MITRAL VALVE The mitral valve is normal in structure and function. There is no evidence of mitral valve prolapse. There is no mitral valve stenosis. There is trace mitral valve regurgitation noted. TRICUSPID VALVE The tricuspid valve is normal in structure and function. There is moderaet tricuspid valve regurgitation noted. Estimated PA systolic pressure is 74 mm Hg. There is no tricuspid valve prolapse or vegetation. There is no tricuspid valve stenosis. PULMONIC VALVE The pulmonary valve is normal in structure and function. There is mild pulmonic valvular regurgitation. There is no pulmonic valvular stenosis. GREAT VESSELS The aortic root is normal in size. The ascending aorta is normal in size. The pulmonary artery is normal. The IVC is dilated and collapses <50% with inspiration. PERICARDIAL EFFUSION The pericardium appears normal. There is no pleural effusion. <Conclusion> Normal overall LV systolic function with paradoxical septal motion. The left atrial volume index is markedly dilated. The right atrium size is severelyd dilated. Systolic function is severely reduced. The right ventricle is severely dilated. Severe pulmonary HTN
[2017-02-09] MEDS: Epoetin Alfa 10,000 unit/ml Dialysis IV SCH (15:40)
--- NOTE | 2017-02-09 17:37 | CP.PCM.CON ---
History of Present Illness - History of Present Illness History of Present Illness: Patient seen and evaluated CAD s/p CABG x 5 CRf on HD Hx of Ramus stent A Fib Cath postponed to Thursday due to Eliquis Past Patient History - Infectious Disease Hx of Infectious Diseases: None - Past Medical History & Family History Past Medical History?: Yes - Past Social History Smoking Status: Never Smoked Chewing Tobacco Use: No Cigar Use: No Alcohol: None Drugs: Denies Home Situation {Lives}: With Family - CARDIAC Hx Atrial Fibrillation: Yes Hx Cardia Arrhythmia: Yes Hx Hypercholesterolemia: Yes Hx Hypertension: Yes - PULMONARY Hx Respiratory Disorders: Yes Hx Pulmonary Edema: Yes - NEUROLOGICAL Hx Neurological Disorder: Yes Hx Dizziness: Yes - HEENT Hx HEENT Problems: Yes Hx Cataracts: Yes (Left and right cataract extraction in 2011) Hx Glaucoma: Yes - RENAL Hx Chronic Kidney Disease: Yes - ENDOCRINE/METABOLIC Hx Endocrine Disorders: Yes Hx Diabetes Mellitus Type 2: Yes - HEMATOLOGICAL/ONCOLOGICAL Hx Anemia: Yes - INTEGUMENTARY Hx Dermatological Problems: No - MUSCULOSKELETAL/RHEUMATOLOGICAL Hx Arthritis: Yes Hx Falls: No - GASTROINTESTINAL Hx Gastritis: Yes - GENITOURINARY/GYNECOLOGICAL Hx Genitourinary Disorders: No - PSYCHIATRIC Hx Substance Use: No - SURGICAL HISTORY Hx Coronary Artery Bypass Graft: Yes (CABG x 4 on 03/06/2009.) - ANESTHESIA Hx Anesthesia: Yes Hx Anesthesia Reactions: No Hx Malignant Hyperthermia: No Meds Allergies/Adverse Reactions: Allergies Allergy/AdvReac Type Severity Reaction Status Date / Time No Known Allergies Allergy Verified 02/27/16 12:51 - Medications Medications: Current Medications Clopidogrel Bisulfate (Plavix) 75 mg PO DAILY [facility] Last Admin: 02/09/17 11:38 Dose: 75 mg Diltiazem HCl (Cardizem) 30 mg PO TID [facility] Last Admin: 02/09/17 10:51 Dose: 30 mg Epoetin Sj (Procrit) 10,000 unit IV MWF [facility] Last Admin: 02/09/17 15:40 Dose: 10,000 unit Famotidine (Pepcid) 20 mg PO DAILY [facility] Last Admin: 02/09/17 11:38 Dose: 20 mg Heparin Sodium (Porcine) (Heparin) 5,000 units SC Q8 [facility] Cefepime HCl 1 gm/ Sodium (Chloride) 100 mls @ 100 mls/hr IVPB Q24H [facility] Last Admin: 02/09/17 12:39 Dose: 100 mls/hr Insulin Aspart (Novolog) 0 unit SC [facility] PRN Reason: Protocol Last Admin: 02/09/17 16:52 Dose: Not Given Insulin Glargine (Lantus) 50 unit SC [facility] Last Admin: 02/08/17 21:32 Dose: 50 u Midodrine (Proamatine) 5 mg PO TID [facility] Last Admin: 02/09/17 11:39 Dose: 5 mg Rosuvastatin Calcium (Crestor) 10 mg PO [facility] Last Admin: 02/08/17 21:33 Dose: 10 mg Sevelamer Carbonate (Renvela) 800 mg PO TID [facility] Last Admin: 02/09/17 11:37 Dose: 800 mg Results - Vital Signs Recent Vital Signs: Last Vital Signs Temp 98.2 F 02/09/17 17:27 Pulse 89 02/09/17 17:27 Resp 20 02/09/17 17:27 BP 129/67 02/09/17 17:27 Pulse Ox 97 02/09/17 17:27 - Labs Result Diagrams: 02/08/17 06:15 02/08/17 06:15 Labs: Laboratory Results - last 24 hr 02/05/17 02/08/17 02/09/17 12:00 21:16 06:46 POC Glucose (mg/dL) 220 H 98 Smooth Muscle Ab Titer 1:40 H Anti-Smooth Muscle Ab Positive H 02/09/17 02/09/17 11:53 16:08 POC Glucose (mg/dL) 149 H 151 H Smooth Muscle Ab Titer Anti-Smooth Muscle Ab
[2017-02-09] MEDS: (Lantus) Insulin Glargine, Recombinant SC SCH (21:37)
--- NOTE | 2017-02-10 07:06 | CP.PCM.PN ---
Subjective - Date & Time of Evaluation Date of Evaluation: 02/10/17 Time of Evaluation: 13:56 - Subjective Subjective: Patient seen and examined at bedside s/p cardiac cath. Patient had [employer] called earlier this AM for blood glucose of 25 and ams which was managed by hospitalist team. Patient also for HD today. Patient was resting comfortably and denied any acute complaints of chest pain, SOB, abd pain. Objective - Vital Signs/Intake and Output Vital Signs (last 24 hours): Temp Pulse Resp BP Pulse Ox 98.4 F 90 20 114/66 96 02/09/17 23:35 02/10/17 05:18 02/09/17 23:35 02/09/17 23:35 02/09/17 23:35 Intake and Output: 02/10/17 02/10/17 06:59 18:59 Intake Total 250 Balance 250 - Medications Medications: Current Medications Clopidogrel Bisulfate (Plavix) 75 mg PO DAILY [facility] Last Admin: 02/09/17 11:38 Dose: 75 mg Diltiazem HCl (Cardizem) 30 mg PO TID [facility] Last Admin: 02/09/17 18:17 Dose: 30 mg Epoetin Sj (Procrit) 10,000 unit IV MWF [facility] Last Admin: 02/09/17 15:40 Dose: 10,000 unit Famotidine (Pepcid) 20 mg PO DAILY [facility] Last Admin: 02/09/17 11:38 Dose: 20 mg Heparin Sodium (Porcine) (Heparin) 5,000 units SC Q8 [facility] Last Admin: 02/09/17 21:36 Dose: 5,000 units Cefepime HCl 1 gm/ Sodium (Chloride) 100 mls @ 100 mls/hr IVPB Q24H [facility] Last Admin: 02/09/17 12:39 Dose: 100 mls/hr Insulin Aspart (Novolog) 0 unit SC ACHS [facility] PRN Reason: Protocol Last Admin: 02/09/17 21:20 Dose: Not Given Insulin Glargine (Lantus) 50 unit SC [facility] Last Admin: 02/09/17 21:37 Dose: 50 u Midodrine (Proamatine) 5 mg PO TID [facility] Last Admin: 02/09/17 18:17 Dose: 5 mg Rosuvastatin Calcium (Crestor) 10 mg PO [facility] Last Admin: 02/09/17 21:36 Dose: 10 mg Sevelamer Carbonate (Renvela) 800 mg PO TID [facility] Last Admin: 02/09/17 18:17 Dose: 800 mg - Labs Labs: 02/08/17 06:15 02/08/17 06:15 PT 19.3 SECONDS (9.7-12.2) H 02/04/17 05:15 INR 1.7 02/04/17 05:15 APTT 35 SECONDS (21-34) H 02/04/17 05:15 - Constitutional Appears: No Acute Distress - Head Exam Head Exam: ATRAUMATIC, NORMAL INSPECTION, NORMOCEPHALIC - Eye Exam Eye Exam: Normal appearance. absent: Conjunctival injection, Scleral icterus - ENT Exam ENT Exam: Mucous Membranes Moist - Respiratory Exam Respiratory Exam: Decreased Breath Sounds, NORMAL BREATHING PATTERN. absent: Accessory Muscle Use - Cardiovascular Exam Cardiovascular Exam: Tachycardia, Irregular Rhythm, +S1, +S2 - GI/Abdominal Exam GI & Abdominal Exam: Soft, Normal Bowel Sounds - Extremities Exam Extremities Exam: Pedal Edema (+1 b/l) - Neurological Exam Neurological Exam: Alert, Awake - Psychiatric Exam Psychiatric exam: Flat Affect - Skin Skin Exam: Dry, Warm Assessment and Plan - Assessment and Plan (Free Text) Assessment: 76 y/o F with PMH of A-fib on eliquis, CAD, ESRD on HD MWF, HTN, DM, and HLD initially presented on 02/04/17 for shortness of breath Plan: Congestive Heart Failure -Cardiac cath 02/11: 1. L Main: proximal 30% 2. LAD: Mid 100% but MORILLO to LAD patent 3. L Cx: Proximal 90% but SVG to OM1 and OM2 patent 4. RCA: Ostial 50% with good RYAN 3 flow 5. EF: 60%, EDP 19, No AV gradient -Echo 02/05: normal overall LV systolic function with paradoxical septal motion. LA volume markedly dilated; RA severely dilated; Systolic function severely reduced; RV severely dilated; Severe pulmonary HTN -restart Eliquis 2.5mg po bid and discotinue plavix -Cardizem 30mg po tid -Midodrine 5mg po tid -Crestor 10mg po hs
[2017-02-10] MEDS: (Novolog) Insulin Aspart, Recombinant 100 u/ml 10 ml vial SC SCH ×5 (07:25→22:08)
--- NOTE | 2017-02-10 08:11 | CP.PCM.PN ---
Subjective - Date & Time of Evaluation Date of Evaluation: 02/10/17 Time of Evaluation: 08:09 - Subjective Subjective: awake alert, no distress lying flat in bed, denies sob plan for cardiac cath lori noted Objective - Vital Signs/Intake and Output Vital Signs (last 24 hours): Temp Pulse Resp BP Pulse Ox 98.4 F 90 20 114/66 96 02/09/17 23:35 02/10/17 05:18 02/09/17 23:35 02/09/17 23:35 02/09/17 23:35 Intake and Output: 02/10/17 02/10/17 06:59 18:59 Intake Total 250 Balance 250 - Medications Medications: Current Medications Clopidogrel Bisulfate (Plavix) 75 mg PO DAILY [facility] Last Admin: 02/09/17 11:38 Dose: 75 mg Diltiazem HCl (Cardizem) 30 mg PO TID [facility] Last Admin: 02/09/17 18:17 Dose: 30 mg Epoetin Sj (Procrit) 10,000 unit IV MWF [facility] Last Admin: 02/09/17 15:40 Dose: 10,000 unit Famotidine (Pepcid) 20 mg PO DAILY [facility] Last Admin: 02/09/17 11:38 Dose: 20 mg Heparin Sodium (Porcine) (Heparin) 5,000 units SC Q8 [facility] Last Admin: 02/09/17 21:36 Dose: 5,000 units Cefepime HCl 1 gm/ Sodium (Chloride) 100 mls @ 100 mls/hr IVPB Q24H [facility] Last Admin: 02/09/17 12:39 Dose: 100 mls/hr Insulin Aspart (Novolog) 0 unit SC ACHS [facility] PRN Reason: Protocol Last Admin: 02/10/17 07:25 Dose: Not Given Insulin Glargine (Lantus) 50 unit SC [facility] Last Admin: 02/09/17 21:37 Dose: 50 u Midodrine (Proamatine) 5 mg PO TID [facility] Last Admin: 02/09/17 18:17 Dose: 5 mg Rosuvastatin Calcium (Crestor) 10 mg PO HS [facility] Last Admin: 02/09/17 21:36 Dose: 10 mg Sevelamer Carbonate (Renvela) 800 mg PO TID [facility] Last Admin: 02/09/17 18:17 Dose: 800 mg - Labs Labs: 02/08/17 06:15 07/02/17 06:15 PT 19.3 SECONDS (9.7-12.2) H 02/04/17 05:15 INR 1.7 02/04/17 05:15 APTT 35 SECONDS (21-34) H 02/04/17 05:15 - Constitutional Appears: Non-toxic, No Acute Distress, Chronically Ill - Head Exam Head Exam: NORMAL INSPECTION - Eye Exam Eye Exam: Normal appearance - ENT Exam ENT Exam: Mucous Membranes Moist, Normal Exam - Neck Exam Neck Exam: Normal Inspection - Respiratory Exam Respiratory Exam: Decreased Breath Sounds, NORMAL BREATHING PATTERN - Cardiovascular Exam Cardiovascular Exam: Irregular Rhythm - GI/Abdominal Exam GI & Abdominal Exam: Distended, Soft - Extremities Exam Extremities Exam: Normal Inspection - Neurological Exam Neurological Exam: Alert, Awake - Skin Skin Exam: Warm Assessment and Plan (1) Afib Status: Acute (2) Congestive heart failure Status: Acute (3) Ischemic cardiomyopathy Status: Acute (4) ESRD (end stage renal disease) on dialysis Status: Chronic (5) Acute [id number] elevation myocardial infarction Status: Acute (6) Acute pulmonary edema with congestive heart failure Status: Acute - Assessment and Plan (Free Text) Assessment: HD later today possible cardiac cath tomorrow am bp low at baseline labs w/ hd today
[2017-02-10] MEDS: Cefepime 1 GM in Sodium Chloride 0.9% 100 ML IVPB SCH (12:07)
--- NOTE | 2017-02-10 13:24 | CP.PCM.PN ---
Objective - Vital Signs/Intake and Output Vital Signs (last 24 hours): Temp Pulse Resp BP Pulse Ox 97.2 F L 104 H 18 153/61 H 90 L 02/10/17 07:00 02/10/17 07:00 02/10/17 07:00 02/10/17 07:00 02/10/17 07:00 Intake and Output: 02/10/17 02/10/17 06:59 18:59 Intake Total 250 Balance 250 - Medications Medications: Current Medications Clopidogrel Bisulfate (Plavix) 75 mg PO DAILY [facility] Last Admin: 02/10/17 10:01 Dose: 75 mg Diltiazem HCl (Cardizem) 30 mg PO TID [facility] Last Admin: 02/10/17 13:23 Dose: 30 mg Epoetin Sj (Procrit) 10,000 unit IV MWF [facility] Last Admin: 02/09/17 15:40 Dose: 10,000 unit Famotidine (Pepcid) 20 mg PO DAILY [facility] Last Admin: 02/10/17 10:01 Dose: 20 mg Heparin Sodium (Porcine) (Heparin) 5,000 units SC Q8 [facility] Last Admin: 02/10/17 13:22 Dose: 5,000 units Cefepime HCl 1 gm/ Sodium (Chloride) 100 mls @ 100 mls/hr IVPB Q24H [facility] Last Admin: 02/10/17 12:07 Dose: 100 mls/hr Insulin Aspart (Novolog) 0 unit SC ACHS [facility] PRN Reason: Protocol Last Admin: 02/10/17 12:44 Dose: 2 unit Insulin Glargine (Lantus) 50 unit SC [facility] Last Admin: 02/09/17 21:37 Dose: 50 u Midodrine (Proamatine) 5 mg PO TID [facility] Last Admin: 02/10/17 13:23 Dose: 5 mg Rosuvastatin Calcium (Crestor) 10 mg PO HS [facility] Last Admin: 02/09/17 21:36 Dose: 10 mg Sevelamer Carbonate (Renvela) 800 mg PO TID [facility] Last Admin: 02/10/17 13:23 Dose: 800 mg - Labs Labs: 02/08/17 06:15 02/08/17 06:15 PT 19.3 SECONDS (9.7-12.2) H 02/04/17 05:15 INR 1.7 02/04/17 05:15 APTT 35 SECONDS (21-34) H 02/04/17 05:15
[2017-02-10 14:30] LABS: HEMOGLOBIN 11.1 g/dL (11.0-16.0); MEAN CELL VOLUME 99.8 fL (81.0-99.0); MEAN CORPUSCULAR HEMOGLOBIN 32.4 pg (27.0-31.0); MEAN CORPUSCULAR HGB CONC 32.4 g/dL (33.0-37.0); MEAN PLATELET VOLUME 8.9 fL (7.2-11.7); RBC 3.43 Mil/uL (3.80-5.20); RED CELL DISTRIBUTION WIDTH 16.8 % (11.5-14.5); WHITE BLOOD COUNT 5.3 K/uL (4.8-10.8)
[2017-02-10 14:47] LABS: CALCIUM 8.7 mg/dl (8.6-10.4)
[2017-02-10] MEDS: (Lantus) Insulin Glargine, Recombinant SC SCH (22:08)
[2017-02-11] MEDS: (Novolog) Insulin Aspart, Recombinant 100 u/ml 10 ml vial SC SCH ×4 (07:56→22:25)
[2017-02-11] MEDS ORDERED: Iodixanol 320 MG/ML 100 ML BOTTLE IV ONE ×2 (08:44→09:14)
[2017-02-11 09:46] LABS: BASO # 0.1 K/uL (0.0-0.2); BASO % 0.9 % (0.0-2.0); EOS # 0.1 K/uL (0.0-0.7); EOS % 0.9 % (0.0-4.0); HEMOGLOBIN 11.3 g/dL (11.0-16.0); LYMPH # 1.1 K/uL (1.0-4.3); LYMPH % 14.1 % (20.0-40.0); MEAN CELL VOLUME 99.1 fL (81.0-99.0); MEAN CORPUSCULAR HEMOGLOBIN 32.1 pg (27.0-31.0); MEAN CORPUSCULAR HGB CONC 32.4 g/dL (33.0-37.0); MEAN PLATELET VOLUME 9.9 fL (7.2-11.7); MONO # 1.1 K/uL (0.0-0.8); MONO % 14.5 % (0.0-10.0); NEUT # 5.2 K/uL (1.8-7.0); NEUT % 69.6 % (50.0-75.0); NRBC % 0.1 % (0.0-2.0); RBC 3.52 Mil/uL (3.80-5.20); RED CELL DISTRIBUTION WIDTH 16.5 % (11.5-14.5); WHITE BLOOD COUNT 7.5 K/uL (4.8-10.8)
--- NOTE | 2017-02-11 09:52 | CP.PCM.PN ---
Subjective - Date & Time of Evaluation Date of Evaluation: 02/11/17 Time of Evaluation: 09:47 - Subjective Subjective: Patient s/p cardiac cath 1. L Main: proximal 30% 2. LAD: Mid 100% but MORILLO to LAD patent 3. L Cx:Proximal 90% but SVG to OM1 and OM2 patent 4. RCA: Ostial 50% with good RYAN 3 flow 5. EF: 60%, EDP 19, No AV gradient Plan: Patient s/p CABG. Grafts patent Medical management Can resume anticoagulation for A Fib from [facility]. Once therapeutic anticoagulation started please D/C Clopidogrel and SC Heparin to reduce bleeding risk Resume diet, OOB to chair after 2pm today Objective - Vital Signs/Intake and Output Vital Signs (last 24 hours): Temp Pulse Resp BP Pulse Ox 97.9 F 98 H 20 108/55 L 95 02/11/17 04:40 02/11/17 04:40 02/11/17 04:40 02/11/17 04:40 02/10/17 23:11 Intake and Output: 02/11/17 02/11/17 06:59 18:59 Intake Total 240 Balance 240 - Medications Medications: Current Medications Clopidogrel Bisulfate (Plavix) 75 mg PO DAILY [facility] Last Admin: 02/10/17 10:01 Dose: 75 mg Diltiazem HCl (Cardizem) 30 mg PO TID [facility] Last Admin: 02/10/17 18:03 Dose: 30 mg Epoetin Sj (Procrit) 10,000 unit IV MWF [facility] Last Admin: 02/09/17 15:40 Dose: 10,000 unit Famotidine (Pepcid) 20 mg PO DAILY [facility] Last Admin: 02/10/17 10:01 Dose: 20 mg Heparin Sodium (Porcine) (Heparin) 5,000 units SC Q8 [facility] Last Admin: 02/11/17 06:00 Dose: Not Given Cefepime HCl 1 gm/ Sodium (Chloride) 100 mls @ 100 mls/hr IVPB Q24H [facility] Last Admin: 02/10/17 12:07 Dose: 100 mls/hr Insulin Aspart (Novolog) 0 unit SC ACHS [facility] PRN Reason: Protocol Last Admin: 02/11/17 07:56 Dose: Not Given Insulin Glargine (Lantus) 50 unit SC HS [facility] Last Admin: 02/10/17 22:08 Dose: 50 u Midodrine (Proamatine) 5 mg PO TID [facility] Last Admin: 02/10/17 18:02 Dose: 5 mg Rosuvastatin Calcium (Crestor) 10 mg PO [facility] Last Admin: 02/10/17 22:07 Dose: 10 mg Sevelamer Carbonate (Renvela) 800 mg PO TID [facility] Last Admin: 02/10/17 18:03 Dose: 800 mg - Labs Labs: 02/10/17 14:24 02/10/17 14:24 PT 19.3 SECONDS (9.7-12.2) H 02/04/17 05:15 INR 1.7 02/04/17 05:15 APTT 35 SECONDS (21-34) H 02/04/17 05:15
[2017-02-11 09:56] LABS: ALBUMIN 3.6 g/dL (3.5-5.0)
[2017-02-11 10:00] LABS: CALCIUM 9.5 mg/dl (8.6-10.4); MAGNESIUM 2.3 mg/dL (1.6-2.3)
[2017-02-11] MEDS ORDERED: Dextrose 50% SYRINGE Inj (50 ml) IV STA (11:58)
[2017-02-11] MEDS ORDERED: Dextrose 50% SYRINGE Inj (50 ml) ONE (11:58)
--- NOTE | 2017-02-11 12:09 | PCM.RRTMUL ---
FITTER WELDER Nurses Assessment - Situation FITTER WELDER Responder Arrival Time:: 11:10 Location:: Hemodialysis Room Room Number:: 651A FITTER WELDER Reason for Call: Hypotension, Respiratory Distress - IV IV Inserted during FITTER WELDER?: Yes IV Fluids Initiated During FITTER WELDER?: 500 cc NS bolus New IV Insertion Tolerance:: Good - Respiratory Oxygen Delivery Method:: Mask, BiPAP Received Nebulizer Treatments:: No Was the Patient Ventilated with Bag/Mask 100% O2?: Yes Secretions Suctioned?: No Was the Patient Intubated?: No (possible intubation- ICU transfer) Was the Patient Placed on a Ventilator?: No - Ventilator Settings SAO2 %:: 84 FIO2 (% Oxygen):: 80 - Medication Medications Administered During FITTER WELDER :: Midodrine 2.5mg PO BID - Diagnostic Test Ordered EKG:: No Chest X-Ray:: Yes CT Scan:: No - Stat Labs Ordered FITTER WELDER Stat Labs Ordered:: CBC, BMP, TROPONIN CPR started during FITTER WELDER?: No - Vital Signs Blood Pressure:: 108/55 Pulse Rate:: 98 Respiratory Rate:: 20 Temperature:: 97.9 F - Marcin Coma Scale Coma Scale Eye Opening:: Spontaneous Coma Scale Motor:: Obeys Commands Movement - Sepsis Screen Part 1 Sepsis Screen Part 1: Hypotensive - Time FITTER WELDER Ended Time FITTER WELDER Ended:: 11:26 - Vital Signs at end of FITTER WELDER Blood Pressure:: 94/53 Pulse Rate:: 95 O2 Sat by Pulse Oximetry:: 100 - Recommendations 5) FITTER WELDER Level of Care Recommendations: Transfer to ICU I.Reason for FITTER WELDER - A) Acute Change in Patient: (Select all that apply): Staff member or family is worried about patient (blood sugar 29) - A) Initial Vital Signs: Blood Pressure: 144/71 Pulse Rate: 94 Finger Stick Blood Glucose: 29 - Constitutional Appears: Non-toxic - Head Head Exam: ATRAUMATIC, NORMAL INSPECTION - Eyes Eye Exam: Normal appearance - Respiratory Exam Respiratory Exam: NORMAL BREATHING PATTERN - Cardiovascular Exam Cardiovascular Exam: REGULAR RHYTHM, RRR - GI/Abdominal Exam GI & Abdominal Exam: Normal Bowel Sounds - Neurological Exam Neurological Exam: Alert, Awake - Extremities Exam Extremities Exam: Normal Inspection Plan - A. End of FITTER WELDER Vital Signs: Blood Pressure: 155/86 Pulse Rate: 104 Finger Stick Blood Glucose: 273 - B. Assessment of Findings&Treatment Plan Rapid response called at 11:55 for blood sugar of 29. Patient was given juice but was too weak to drink it. D50% 50 ml IV given stat. Patient was more responsive and blood sugar increased to 273.
[2017-02-11] MEDS: Cefepime 1 GM in Sodium Chloride 0.9% 100 ML IVPB SCH (13:47)
--- NOTE | 2017-02-11 14:35 | CP.PCM.PN ---
Subjective - Date & Time of Evaluation Date of Evaluation: 02/11/17 Time of Evaluation: 13:00 - Subjective Subjective: seen on HD somewhat lethargic had [employer] earlier due to hypoglycemia had cath today, open grafts, for medical management 2 kg uf at present ROS cannot be obtained due to mental status Objective - Vital Signs/Intake and Output Vital Signs (last 24 hours): Temp Pulse Resp BP Pulse Ox 97.9 F 82 16 117/72 95 02/11/17 13:00 02/11/17 13:00 02/11/17 13:00 02/11/17 13:00 02/10/17 23:11 Intake and Output: 02/11/17 02/11/17 06:59 18:59 Intake Total 240 Balance 240 - Medications Medications: Current Medications Clopidogrel Bisulfate (Plavix) 75 mg PO DAILY [facility] Last Admin: 02/11/17 10:57 Dose: 75 mg Diltiazem HCl (Cardizem) 30 mg PO TID [facility] Last Admin: 02/11/17 13:47 Dose: Not Given Epoetin Sj (Procrit) 10,000 unit IV MWF [facility] Last Admin: 02/09/17 15:40 Dose: 10,000 unit Famotidine (Pepcid) 20 mg PO DAILY [facility] Last Admin: 02/11/17 10:57 Dose: 20 mg Heparin Sodium (Porcine) (Heparin) 5,000 units SC Q8 [facility] Last Admin: 02/11/17 13:47 Dose: Not Given Insulin Aspart (Novolog) 0 unit SC [facility] PRN Reason: Protocol Last Admin: 02/11/17 12:31 Dose: Not Given Insulin Glargine (Lantus) 50 unit SC [facility] Last Admin: 02/10/17 22:08 Dose: 50 u Midodrine (Proamatine) 5 mg PO TID [facility] Last Admin: 02/11/17 13:48 Dose: Not Given Rosuvastatin Calcium (Crestor) 10 mg PO [facility] Last Admin: 02/10/17 22:07 Dose: 10 mg Sevelamer Carbonate (Renvela) 800 mg PO TID [facility] Last Admin: 02/11/17 13:48 Dose: Not Given - Labs Labs: 02/11/17 09:34 02/11/17 09:34 PT 19.3 SECONDS (9.7-12.2) H 02/04/17 05:15 INR 1.7 02/04/17 05:15 APTT 35 SECONDS (21-34) H 02/04/17 05:15 - Constitutional Appears: Confused, Chronically Ill - Eye Exam Eye Exam: EOMI Pupil Exam: NORMAL ACCOMODATION - ENT Exam ENT Exam: Mucous Membranes Moist, Normal External Ear Exam - Neck Exam Neck Exam: Full ROM. absent: Lymphadenopathy - Respiratory Exam Respiratory Exam: Decreased Breath Sounds. absent: Accessory Muscle Use - Cardiovascular Exam Cardiovascular Exam: REGULAR RHYTHM. absent: Rubs - Extremities Exam Extremities Exam: absent: Pedal Edema - Neurological Exam Additional comments: lethargic, goes back to sleep after questions Assessment and Plan - Assessment and Plan (Free Text) Assessment: esrd cad dm htn pda monitor mental status repeat blood cultures watch blood sugars
[2017-02-11] MEDS ORDERED: Albumin Human 25% (12.5 gm/50 ml) IV STA (14:44)
--- NOTE | 2017-02-11 14:47 | CP.PCM.PN ---
Subjective - Date & Time of Evaluation Date of Evaluation: 02/11/17 Time of Evaluation: 11:40 Objective - Vital Signs/Intake and Output Vital Signs (last 24 hours): Temp Pulse Resp BP Pulse Ox 97.9 F 82 16 117/72 95 02/11/17 13:00 02/11/17 13:00 02/11/17 13:00 02/11/17 13:00 02/10/17 23:11 Intake and Output: 02/11/17 02/11/17 06:59 18:59 Intake Total 240 Balance 240 - Medications Medications: Current Medications Albumin Human (Albumin Human 25% (12.5 Gm/50 Ml)) 12.5 gm IV ONCE STA Stop: 02/11/17 14:45 Apixaban (Eliquis) 2.5 mg PO BID [facility] Diltiazem HCl (Cardizem) 30 mg PO TID [facility] Last Admin: 02/11/17 13:47 Dose: Not Given Epoetin Sj (Procrit) 10,000 unit IV [facility] Last Admin: 02/09/17 15:40 Dose: 10,000 unit Famotidine (Pepcid) 20 mg PO DAILY [facility] Last Admin: 02/11/17 10:57 Dose: 20 mg Insulin Aspart (Novolog) 0 unit SC [facility] PRN Reason: Protocol Last Admin: 02/11/17 12:31 Dose: Not Given Insulin Glargine (Lantus) 50 unit SC [facility] Last Admin: 02/10/17 22:08 Dose: 50 u Midodrine (Proamatine) 5 mg PO TID [facility] Last Admin: 02/11/17 13:48 Dose: Not Given Rosuvastatin Calcium (Crestor) 10 mg PO [facility] Last Admin: 02/10/17 22:07 Dose: 10 mg Sevelamer Carbonate (Renvela) 800 mg PO TID [facility] Last Admin: 02/11/17 13:48 Dose: Not Given - Labs Labs: 02/11/17 09:34 02/11/17 09:34 PT 19.3 SECONDS (9.7-12.2) H 02/04/17 05:15 INR 1.7 02/04/17 05:15 APTT 35 SECONDS (21-34) H 02/04/17 05:15
[2017-02-11] MEDS: Epoetin Alfa 10,000 unit/ml Dialysis IV SCH (14:54)
--- NOTE | 2017-02-11 19:43 | CP.PCM.PN ---
Subjective - Date & Time of Evaluation Date of Evaluation: 02/11/17 Objective - Vital Signs/Intake and Output Vital Signs (last 24 hours): Temp Pulse Resp BP Pulse Ox 97.4 F L 81 18 101/57 L 97 02/11/17 16:10 02/11/17 16:10 02/11/17 16:10 02/11/17 16:10 02/11/17 16:10 - Medications Medications: Current Medications Apixaban (Eliquis) 2.5 mg PO BID [facility] Last Admin: 02/11/17 19:03 Dose: 2.5 mg Diltiazem HCl (Cardizem) 30 mg PO TID [facility] Last Admin: 02/11/17 19:00 Dose: Not Given Epoetin Sj (Procrit) 10,000 unit IV [facility] Last Admin: 02/11/17 14:54 Dose: 10,000 unit Famotidine (Pepcid) 20 mg PO DAILY [facility] Last Admin: 02/11/17 10:57 Dose: 20 mg Insulin Aspart (Novolog) 0 unit SC [facility] PRN Reason: Protocol Last Admin: 02/11/17 18:00 Dose: Not Given Insulin Glargine (Lantus) 50 unit SC [facility] Last Admin: 02/10/17 22:08 Dose: 50 u Midodrine (Proamatine) 5 mg PO TID [facility] Last Admin: 02/11/17 19:03 Dose: 5 mg Rosuvastatin Calcium (Crestor) 10 mg PO [facility] Last Admin: 02/10/17 22:07 Dose: 10 mg Sevelamer Carbonate (Renvela) 800 mg PO TID [facility] Last Admin: 02/11/17 19:02 Dose: 800 mg - Labs Labs: 02/11/17 09:34 02/11/17 09:34 PT 19.3 SECONDS (9.7-12.2) H 02/04/17 05:15 INR 1.7 02/04/17 05:15 APTT 35 SECONDS (21-34) H 02/04/17 05:15
[2017-02-11] MEDS: (Lantus) Insulin Glargine, Recombinant SC SCH (22:37)
--- NOTE | 2017-02-12 07:20 | CP.PCM.PN ---
Subjective - Date & Time of Evaluation Date of Evaluation: 02/12/17 Time of Evaluation: 08:00 - Subjective Subjective: Patient seen and examined. Nursing reported no acute events overnight. VSS and HR and BP were well controlled. Patient was satting well on NC 2L. She was comfortable and reported no acute complaints of headache, dizziness, chest pain , SOB, abd pain. She is more alert today and had HD yesterday 02/11. Objective - Vital Signs/Intake and Output Vital Signs (last 24 hours): Temp Pulse Resp BP Pulse Ox 98.5 F 92 H 18 106/59 L 100 02/12/17 05:48 02/12/17 05:48 02/12/17 05:48 02/12/17 05:48 02/12/17 05:48 - Medications Medications: Current Medications Apixaban (Eliquis) 2.5 mg PO BID [facility] Last Admin: 02/11/17 19:03 Dose: 2.5 mg Diltiazem HCl (Cardizem) 30 mg PO TID [facility] Last Admin: 02/11/17 19:00 Dose: Not Given Epoetin Sj (Procrit) 10,000 unit IV F [facility] Last Admin: 02/11/17 14:54 Dose: 10,000 unit Famotidine (Pepcid) 20 mg PO DAILY [facility] Last Admin: 02/11/17 10:57 Dose: 20 mg Insulin Aspart (Novolog) 0 unit SC [facility] PRN Reason: Protocol Last Admin: 02/11/17 22:25 Dose: Not Given Insulin Glargine (Lantus) 50 unit SC [facility] Last Admin: 02/11/17 22:37 Dose: Not Given Midodrine (Proamatine) 5 mg PO TID [facility] Last Admin: 02/11/17 19:03 Dose: 5 mg Rosuvastatin Calcium (Crestor) 10 mg PO [facility] Last Admin: 02/11/17 22:24 Dose: 10 mg Sevelamer Carbonate (Renvela) 800 mg PO TID [facility] Last Admin: 02/11/17 19:02 Dose: 800 mg - Labs Labs: 02/11/17 09:34 02/11/17 09:34 PT 19.3 SECONDS (9.7-12.2) H 02/04/17 05:15 INR 1.7 02/04/17 05:15 APTT 35 SECONDS (21-34) H 02/04/17 05:15 - Constitutional Appears: No Acute Distress - Head Exam Head Exam: ATRAUMATIC, NORMOCEPHALIC - Eye Exam Eye Exam: Normal appearance. absent: Conjunctival injection, Scleral icterus - ENT Exam ENT Exam: Mucous Membranes Moist - Respiratory Exam Respiratory Exam: Decreased Breath Sounds, NORMAL BREATHING PATTERN - Cardiovascular Exam Cardiovascular Exam: Irregular Rhythm, +S1, +S2. absent: Bradycardia, Tachycardia - GI/Abdominal Exam GI & Abdominal Exam: Soft, Normal Bowel Sounds - Extremities Exam Extremities Exam: Pedal Edema (+1 b/l) - Neurological Exam Neurological Exam: Alert, Awake - Psychiatric Exam Psychiatric exam: Flat Affect - Skin Skin Exam: Dry, Intact, Warm Assessment and Plan - Assessment and Plan (Free Text) Assessment: 76 y/o F with PMH of A-fib on eliquis, CAD, ESRD on HD MWF, HTN, DM, and HLD initially presented on 02/04/17 for shortness of breath Plan: Congestive Heart Failure -Cardiac cath 02/11 showed: 1. L Main: proximal 30% 2. LAD: Mid 100% but MORILLO to LAD patent 3. L Cx: Proximal 90% but SVG to OM1 and OM2 patent 4. RCA: Ostial 50% with good RYAN 3 flow 5. EF: 60%, EDP 19, No AV gradient -Echo 02/05: normal overall LV systolic function with paradoxical septal motion. LA volume markedly dilated; RA severely dilated; Systolic function severely reduced; RV severely dilated; Severe pulmonary HTN -Eliquis 2.5mg po bid -Cardizem 30mg po tid -Midodrine 5mg po tid -Crestor 10mg po hs Cardiology will sign off at this time. Please reconsult if necessary. Thank you for the consult.
[2017-02-12] MEDS: (Novolog) Insulin Aspart, Recombinant 100 u/ml 10 ml vial SC SCH ×3 (08:41→21:23)
--- NOTE | 2017-02-12 11:02 | CP.PCM.PN ---
Subjective - Date & Time of Evaluation Date of Evaluation: 02/12/17 Time of Evaluation: 11:00 - Subjective Subjective: s/p dialysis 6/5; also had rapid response due to hypoglycemia more alert today no dialysis planned for today BP better with midodrine need to consider 4X/week dialysis when discharged Objective - Vital Signs/Intake and Output Vital Signs (last 24 hours): Temp Pulse Resp BP Pulse Ox 98.4 F 100 H 18 102/69 99 02/12/17 07:25 02/12/17 07:25 02/12/17 07:25 02/12/17 07:25 02/12/17 07:25 - Medications Medications: Current Medications Apixaban (Eliquis) 2.5 mg PO BID [facility] Last Admin: 02/12/17 09:49 Dose: 2.5 mg Diltiazem HCl (Cardizem) 30 mg PO TID [facility] Last Admin: 02/12/17 09:49 Dose: 30 mg Epoetin Sj (Procrit) 10,000 unit IV MWF [facility] Last Admin: 02/11/17 14:54 Dose: 10,000 unit Famotidine (Pepcid) 20 mg PO DAILY [facility] Last Admin: 02/12/17 09:49 Dose: 20 mg Insulin Aspart (Novolog) 0 unit SC [facility] PRN Reason: Protocol Last Admin: 02/12/17 08:41 Dose: Not Given Insulin Glargine (Lantus) 50 unit SC [facility] Last Admin: 02/11/17 22:37 Dose: Not Given Midodrine (Proamatine) 5 mg PO TID [facility] Last Admin: 02/12/17 09:49 Dose: 5 mg Rosuvastatin Calcium (Crestor) 10 mg PO [facility] Last Admin: 02/11/17 22:24 Dose: 10 mg Sevelamer Carbonate (Renvela) 800 mg PO TID [facility] Last Admin: 02/12/17 09:49 Dose: 800 mg - Labs Labs: 02/11/17 09:34 02/11/17 09:34 PT 19.3 SECONDS (9.7-12.2) H 02/04/17 05:15 INR 1.7 02/04/17 05:15 APTT 35 SECONDS (21-34) H 02/04/17 05:15 - Constitutional Appears: Confused, Chronically Ill - Head Exam Head Exam: ATRAUMATIC, NORMAL INSPECTION - Eye Exam Eye Exam: EOMI, Normal appearance - Neck Exam Neck Exam: Normal Inspection. absent: Tenderness - Respiratory Exam Respiratory Exam: Rales, Respiratory Distress - Cardiovascular Exam Cardiovascular Exam: Irregular Rhythm, +S1 - GI/Abdominal Exam GI & Abdominal Exam: Soft. absent: Tenderness - Extremities Exam Extremities Exam: Normal Inspection. absent: Tenderness - Neurological Exam Neurological Exam: Awake, CN II-XII Intact - Skin Skin Exam: Dry, Warm Assessment and Plan (1) Ischemic cardiomyopathy Status: Acute (2) Afib Status: Acute (3) Congestive heart failure Status: Acute (4) ESRD (end stage renal disease) on dialysis Status: Chronic (5) CAD (coronary artery disease) of artery bypass graft Status: Acute - Assessment and Plan (Free Text) Plan: Same meds Repeat HD in AM Needs adequate UF monitor mental status
--- NOTE | 2017-02-12 15:37 | CP.PCM.PN ---
Subjective - Date & Time of Evaluation Date of Evaluation: 02/12/17 Time of Evaluation: 10:00 - Subjective Subjective: Clinically same Objective - Vital Signs/Intake and Output Vital Signs (last 24 hours): Temp Pulse Resp BP Pulse Ox 98.4 F 100 H 18 102/69 99 02/12/17 07:25 02/12/17 07:25 02/12/17 07:25 02/12/17 07:25 02/12/17 07:25 - Medications Medications: Current Medications Apixaban (Eliquis) 2.5 mg PO BID [facility] Last Admin: 02/12/17 09:49 Dose: 2.5 mg Diltiazem HCl (Cardizem) 30 mg PO TID [facility] Last Admin: 02/12/17 14:46 Dose: 30 mg Epoetin Sj (Procrit) 10,000 unit [place] [facility] [place] Famotidine (Pepcid) 20 mg PO DAILY [facility] Last Admin: 02/12/17 09:49 Dose: 20 mg Insulin Aspart (Novolog) 0 unit SC [facility] PRN Reason: Protocol Last Admin: 02/12/17 08:41 Dose: Not Given Insulin Glargine (Lantus) 50 unit SC [facility] Last Admin: 02/11/17 22:37 Dose: Not Given Midodrine (Proamatine) 5 mg PO TID [facility] Last Admin: 02/12/17 14:46 Dose: 5 mg Rosuvastatin Calcium (Crestor) 10 mg PO [facility] Last Admin: 02/11/17 22:24 Dose: 10 mg Sevelamer Carbonate (Renvela) 800 mg PO TID [facility] Last Admin: 02/12/17 14:46 Dose: 800 mg - Labs Labs: 02/11/17 09:34 02/11/17 09:34 PT 19.3 SECONDS (9.7-12.2) H 02/04/17 05:15 INR 1.7 02/04/17 05:15 APTT 35 SECONDS (21-34) H 02/04/17 05:15 Assessment and Plan - Assessment and Plan (Free Text) Plan: Status post cardiology Status post renal Status post hemodialysis Blood pressure is much better Septic workup Subacute placement Continue as ordered
[2017-02-12] MEDS: (Lantus) Insulin Glargine, Recombinant SC SCH (21:33)
[2017-02-13] MEDS ORDERED: Dextrose 50% SYRINGE Inj (50 ml) ONE (07:22)
--- NOTE | 2017-02-13 07:27 | VASCLAB ---
PROCEDURE: Lower Extremity Venous Duplex Exam. HISTORY: Leg pain PRIORS: None. TECHNIQUE: Bilateral common femoral, femoral, popliteal and posterior tibial, peroneal and great saphenous veins were evaluated. Flow was assessed with color Doppler, compressibility, assessment of phasic flow and augmentation response. Report prepared by ARTURO Hicks, RVT FINDINGS: RIGHT: 1. Common Femoral Vein: 1.1. Compressibility - Fully compressible: Thrombus - None : Flow - Phasic: Augmentation -Normal: Reflux - None. 2. Femoral Vein: 2.1. Compressibility - Fully compressible: Thrombus - None : Flow - Phasic: Augmentation -Normal: Reflux - None. 3. Popliteal Vein: 3.1. Compressibility - Fully compressible: Thrombus - None : Flow - Phasic: Augmentation -Normal: Reflux - None. 4. Posterior Tibial Vein: 4.1. Compressibility - Fully compressible: Thrombus - None: Flow - Phasic: Augmentation -Normal: Reflux - None. 5. Peroneal Vein: 5.1. Compressibility - Fully compressible: Thrombus - None: Flow - Phasic: Augmentation -Normal: Reflux - None. 6. Great Saphenous Vein: 6.1. Compressibility - Fully compressible: Thrombus - None: Flow - Phasic: Augmentation - Normal: Reflux - None. LEFT: 1. Common Femoral Vein: 1.1. Compressibility - Fully compressible: Thrombus - None: Flow - Phasic: Augmentation -Normal: Reflux - None. 2. Femoral Vein: 2.1. Compressibility - Fully compressible: Thrombus - None: Flow - Phasic: Augmentation -Normal: Reflux - None. 3. Popliteal Vein: 3.1. Compressibility - Fully compressible: Thrombus - None : Flow - Phasic: Augmentation -Normal: Reflux - None. 4. Posterior Tibial Vein: 4.1. Compressibility - Fully compressible: Thrombus - None: Flow - Phasic: Augmentation -Normal: Reflux - None. 5. Peroneal Vein: 5.1. Compressibility - Fully compressible: Thrombus - None: Flow - Phasic: Augmentation -Normal: Reflux - None. 6. Great Saphenous Vein: 6.1. Compressibility - Fully compressible: Thrombus - None: Flow - Phasic: Augmentation - Normal: Reflux - None. OTHER FINDINGS: Right: None significant. Left: None significant. IMPRESSION: Right: No evidence of deep or superficial vein thrombosis of the right lower extremity. Normal valve function noted of the right side. Left: No evidence of deep or superficial vein thrombosis of the left lower extremity. Normal valve function noted of the left side.
[2017-02-13 07:48] LABS: BASO # 0.1 K/uL (0.0-0.2); BASO % 0.9 % (0.0-2.0); EOS # 0.1 K/uL (0.0-0.7); EOS % 1.1 % (0.0-4.0); HEMOGLOBIN 10.9 g/dL (11.0-16.0); LYMPH # 0.3 K/uL (1.0-4.3); LYMPH % 5.6 % (20.0-40.0); MEAN CELL VOLUME 99.3 fL (81.0-99.0); MEAN CORPUSCULAR HEMOGLOBIN 32.2 pg (27.0-31.0); MEAN CORPUSCULAR HGB CONC 32.4 g/dL (33.0-37.0); MEAN PLATELET VOLUME 9.1 fL (7.2-11.7); MONO # 0.9 K/uL (0.0-0.8); MONO % 14.6 % (0.0-10.0); NEUT # 4.9 K/uL (1.8-7.0); NEUT % 77.8 % (50.0-75.0); NRBC % 0.1 % (0.0-2.0); RBC 3.38 Mil/uL (3.80-5.20); RED CELL DISTRIBUTION WIDTH 16.5 % (11.5-14.5); WHITE BLOOD COUNT 6.3 K/uL (4.8-10.8)
[2017-02-13 08:05] LABS: PLATELET COUNT 117 K/uL (130-400)
[2017-02-13 08:12] LABS: ALBUMIN 3.5 g/dL (3.5-5.0)
[2017-02-13 08:16] LABS: CALCIUM 9.3 mg/dl (8.6-10.4)
[2017-02-13] MEDS ORDERED: Epoetin Alfa Dialysis 3000 UNIT/ML Inj IV SCH (09:00)
[2017-02-13] MEDS: (Novolog) Insulin Aspart, Recombinant 100 u/ml 10 ml vial SC SCH ×3 (09:24→17:33)
[2017-02-13 09:59] LABS: EOSINOPHIL 1 % (0-4); LYMPHOCYTE 7 % (20-40); MONOCYTE 12 % (0-10); NEUTROPHIL 80 % (50-75); PLATELET ESTIMATE SLIGHTLY DECREASED (NORMAL); TOTAL CELLS COUNTED 100
[2017-02-13 10:00] LABS: ANISOCYTOSIS SLIGHT
[2017-02-13 10:01] LABS: LARGE PLATELETS PRESENT; OVALOCYTES SLIGHT; TARGET CELLS SLIGHT
--- NOTE | 2017-02-13 14:16 | CP.PCM.PN ---
Subjective - Date & Time of Evaluation Date of Evaluation: 02/13/17 Time of Evaluation: 09:45 - Subjective Subjective: Medicine Progress Note- Dr Zina kim's service Patient seen and examined in hemodialysis. Patient states that she feels "okay " today and denies pain. Nursing reported no acute events overnight and no more episodes of hypoglycemia. Denies fever, nausea, vomiting, and shortness of breath. Objective - Vital Signs/Intake and Output Vital Signs (last 24 hours): Temp Pulse Resp BP Pulse Ox 98.4 F 73 15 117/71 93 L 02/13/17 10:15 02/13/17 13:00 02/13/17 13:00 02/13/17 13:00 02/13/17 13:00 - Medications Medications: Current Medications Apixaban (Eliquis) 2.5 mg PO BID [facility] Last Admin: 02/13/17 09:23 Dose: 2.5 mg Diltiazem HCl (Cardizem) 30 mg PO TID [facility] Last Admin: 02/13/17 09:24 Dose: Not Given Epoetin Sj (Procrit) 3,000 unit IV [facility] Last Admin: 02/13/17 11:53 Dose: 3,000 unit Famotidine (Pepcid) 20 mg PO DAILY [facility] Last Admin: 02/13/17 09:23 Dose: 20 mg Insulin Aspart (Novolog) 0 unit SC [facility] PRN Reason: Protocol Last Admin: 02/13/17 09:24 Dose: Not Given Insulin Glargine (Lantus) 50 unit SC [facility] Last Admin: 02/12/17 21:33 Dose: 50 u Midodrine (Proamatine) 5 mg PO TID [facility] Last Admin: 02/13/17 09:23 Dose: 5 mg Rosuvastatin Calcium (Crestor) 10 mg PO [facility] Last Admin: 02/12/17 21:33 Dose: 10 mg Sevelamer Carbonate (Renvela) 800 mg PO TID [facility] Last Admin: 02/13/17 09:23 Dose: 800 mg - Labs Labs: 02/13/17 07:40 02/13/17 07:40 PT 19.3 SECONDS (9.7-12.2) H 02/04/17 05:15 INR 1.7 02/04/17 05:15 APTT 35 SECONDS (21-34) H 02/04/17 05:15 - Additional Findings Additional findings: - Constitutional Appears: Non-toxic, No Acute Distress - Head Exam Head Exam: ATRAUMATIC, NORMOCEPHALIC - Eye Exam Eye Exam: EOMI - ENT Exam ENT Exam: Mucous Membranes Moist - Neck Exam Neck Exam: Normal Inspection Additional comments: No JVD - Respiratory Exam Respiratory Exam: Clear to Ausculation Bilateral, NORMAL BREATHING PATTERN. absent: Accessory Muscle Use, Rhonchi, Wheezes, Respiratory Distress Additional comments: on nasal canula - Cardiovascular Exam Cardiovascular Exam: Irregular Rhythm. absent: Tachycardia, Murmur - GI/Abdominal Exam GI & Abdominal Exam: Soft, Normal Bowel Sounds. absent: Distended, Firm, Tenderness - Extremities Exam Extremities Exam: Full ROM, Normal Inspection. absent: Pedal Edema - Neurological Exam Neurological Exam: Alert, Awake, Oriented x3 - Psychiatric Exam Psychiatric exam: Flat Affect - Skin Skin Exam: Dry, Intact, Normal Color, Warm Assessment and Plan - Assessment and Plan (Free Text) Assessment: 1. Congestive Heart Failure Monitor on telemetry BNP [id number] Seo consulted- signed off Cardiac cath 02/11 showed: 1. L Main: proximal 30% 2. LAD: Mid 100% but MORILLO to LAD patent 3. L Cx: Proximal 90% but SVG to OM1 and OM2 patent 4. RCA: Ostial 50% with good RAYN 3 flow 5. EF: 60%, EDP 19, No AV gradient Echo 02/05: normal overall LV systolic function with paradoxical septal motion. LA volume markedly dilated; RA severely dilated; Systolic function severely reduced; RV severely dilated; Severe pulmonary HTN Eliquis 2.5mg po bid Cardizem 30mg po tid Midodrine 5mg po tid Crestor 10mg po hs 2. Elevated troponins ROMIs 0.864--> 1.56 EKG on admission showed A fib @72bpm, ST and T wave changes Bundle Packer Dr Seo consulted- Per platform worker note, elevated troponin likely secondary to hypotension. Cardiac cath 02/11 showed: 1. L Main: proximal 30% 2. LAD: Mid 100% but MORILLO to LAD patent 3. L Cx: Proximal 90% but SVG to OM1 and OM2 patent 4. RCA: Ostial 50% with good RYAN 3 flow 5. EF: 60%, EDP 19, No AV gradient Bundle Packer signed off. Continue medical management. 3. A fib Rate controlled CHADS2-VASC score 7 points Eliquis 2.5mg PO BID Cardizem 30mg PO TID 4. CAD s/p PCI and CABG Crestor 10mg PO HS Eliquis 2.5mg po bid see above cath results 5. Hypotension Resolved and currently stable Monitor vitals q4h 6. 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 U/S noted with hepatic steatosis; patent portal vasculature Hepatitis panel negative Check autoimmune panel: SALOMÓN negative 7. ESRD on HD Nephro Dr Barroso consulted- help appreciated Continue HD MWF May need HD 4x/week once discharged per plater supervisor 8. DM BS in 200s Accuchecks ISS Lantus 50u SC BID HgA1C 8.4 9. Prophylactic Measures SCDs Elidanni Pepcid PT eval- will f/u recommendations Discharge planning to [facility] All orders per Dr Zina Kim. Will discuss with attending.
--- NOTE | 2017-02-13 15:09 | CP.PCM.PN ---
Subjective - Date & Time of Evaluation Date of Evaluation: 02/13/17 Time of Evaluation: 15:06 - Subjective Subjective: Stable dialysis now- UF 2500ml Less dyspneic No n, v, CPs, f, chill,, HAs BP controlled Objective - Vital Signs/Intake and Output Vital Signs (last 24 hours): Temp Pulse Resp BP Pulse Ox 98.4 F 73 15 123/77 93 L 02/13/17 10:15 02/13/17 13:00 02/13/17 13:00 02/13/17 14:35 02/13/17 13:00 Intake and Output: 02/13/17 02/13/17 06:59 18:59 Intake Total 480 Balance 480 - Medications Medications: Current Medications Apixaban (Eliquis) 2.5 mg PO BID [facility] Last Admin: 02/13/17 09:23 Dose: 2.5 mg Diltiazem HCl (Cardizem) 30 mg PO TID [facility] Last Admin: 02/13/17 14:35 Dose: 30 mg Epoetin Sj (Procrit) 3,000 unit IV F [facility] Last Admin: 02/13/17 11:53 Dose: 3,000 unit Famotidine (Pepcid) 20 mg PO DAILY [facility] Last Admin: 02/13/17 09:23 Dose: 20 mg Insulin Aspart (Novolog) 0 unit SC [facility] PRN Reason: Protocol Last Admin: 02/13/17 11:51 Dose: Not Given Insulin Glargine (Lantus) 50 unit SC [facility] Last Admin: 02/12/17 21:33 Dose: 50 u Midodrine (Proamatine) 5 mg PO TID [facility] Last Admin: 02/13/17 14:35 Dose: 5 mg Rosuvastatin Calcium (Crestor) 10 mg PO [facility] Last Admin: 02/12/17 21:33 Dose: 10 mg Sevelamer Carbonate (Renvela) 800 mg PO TID [facility] Last Admin: 02/13/17 14:35 Dose: 800 mg - Labs Labs: 02/13/17 07:40 02/13/17 07:40 PT 19.3 SECONDS (9.7-12.2) H 02/04/17 05:15 INR 1.7 02/04/17 05:15 APTT 35 SECONDS (21-34) H 02/04/17 05:15 - Constitutional Appears: Cachectic, Chronically Ill - Head Exam Head Exam: ATRAUMATIC, NORMAL INSPECTION - Eye Exam Eye Exam: EOMI, Normal appearance - Neck Exam Neck Exam: Normal Inspection. absent: Tenderness - Respiratory Exam Respiratory Exam: Rales, NORMAL BREATHING PATTERN - Cardiovascular Exam Cardiovascular Exam: Irregular Rhythm, +S1 - GI/Abdominal Exam GI & Abdominal Exam: Soft. absent: Tenderness - Extremities Exam Extremities Exam: Normal Inspection. absent: Tenderness - Neurological Exam Neurological Exam: Awake, CN II-XII Intact - Skin Skin Exam: Dry, Warm Assessment and Plan (1) Ischemic cardiomyopathy Status: Acute (2) Afib Status: Acute (3) Congestive heart failure Status: Acute (4) ESRD (end stage renal disease) on dialysis Status: Chronic (5) CAD (coronary artery disease) of artery bypass graft Status: Acute - Assessment and Plan (Free Text) Plan: Repeat dialysis in AM Then HD MWFS Same meds- monitor BP
[2017-02-13 15:55] VITALS: BP 145/73; PULSE 94; RESP 20; TEMP 97.5; O2SAT 96
--- NOTE | 2017-02-13 18:48 | PCM.HF ---
Heart Failure Core Measure - Heart Failure Ejection Fraction: 40 % or Greater (ef 55%) [place] Inhibitor Prescribed: No Contraindication/Reason for not providing: esrd Beta-Wade Prescribed: None Angiotensin II Receptor Wade Prescribed: No Contraindication/Reason for not providing: esrd AnticoagulationTherapy for Atrial Fibrillation/Atrialflutter: Yes Contraindication/Reason for not providing: atrial flutter Aldosterone Antagonist Prescribed: No Contraindication/Reason for not providing: esrd Hydralazine Nitrate Prescribed: No Contraindication/Reason for not providing: ed >40% Implantable Cardioverter Defibrillator Therapy: No Contraindication/Reason for not providing: ef >40% Cardiac Resynchronization Therapy Prescribed: No Contraindication/Reason for not providing: ef >40% - Follow up Will be discharged to: [facility]
--- NOTE | 2017-02-16 12:47 | CP.PCM.CON ---
History of Present Illness - History of Present Illness History of Present Illness: 76 y/o FF presents with increased dyspnea. CHF diagnosed and needed immediate dialysis- UF 2500ml Has been compliant with dialysis PMH: ESRD HTN DL CAD- POST CABG ICMP PSH: CABG 2009 AV [facility] FOR EMERGENT DIALYSIS FOR CHF Review of Systems - Review of Systems Systems not reviewed;Unavailable: Respiratory Distress Past Patient History - Infectious Disease Hx of Infectious Diseases: None - Past Medical History & Family History Past Medical History?: Yes Past Family History: Reviewed and not pertinent - Past Social History Smoking Status: Never Smoked Chewing Tobacco Use: No Cigar Use: No Alcohol: None Drugs: Denies Home Situation {Lives}: With Family - CARDIAC Hx Cardiac Disorders: Yes (ATRIAL FIBRILLATION; CARDIAC SRRHYTMIA) Hx Hypercholesterolemia: Yes Hx Hypertension: Yes - PULMONARY Hx Respiratory Disorders: Yes Hx Pulmonary Edema: Yes - NEUROLOGICAL Hx Neurological Disorder: Yes Hx Dizziness: Yes - HEENT Hx HEENT Problems: Yes Hx Cataracts: Yes (Left and right cataract extraction in 2011) Hx Glaucoma: Yes - RENAL Hx Chronic Kidney Disease: Yes - ENDOCRINE/METABOLIC Hx Endocrine Disorders: Yes Hx Diabetes Mellitus Type 2: Yes - HEMATOLOGICAL/ONCOLOGICAL Hx Anemia: Yes - INTEGUMENTARY Hx Dermatological Problems: No - MUSCULOSKELETAL/RHEUMATOLOGICAL Hx Arthritis: Yes - GASTROINTESTINAL Hx Gastritis: Yes - GENITOURINARY/GYNECOLOGICAL Hx Genitourinary Disorders: No - PSYCHIATRIC Hx Substance Use: No - SURGICAL HISTORY Hx Coronary Artery Bypass Graft: Yes (CABG x 4 on 03/06/2009.) - ANESTHESIA Hx Anesthesia: Yes Hx Anesthesia Reactions: No Hx Malignant Hyperthermia: No Meds Home Medications: Home Medication List Medication Instructions Recorded Confirmed Type Famotidine [Pepcid] 20 mg PO DAILY tab 02/13/17 Rx Insulin Glargine, Recombina 50 unit SC HS unit 02/13/17 Rx [Lantus] Midodrine [Proamatine] 5 mg PO TID tab 02/13/17 Rx Sevelamer Carbonate [Renvela] 800 mg PO TID tab 02/13/17 Rx diltiaZEM [Cardizem] 30 mg PO TID tab 02/13/17 Rx Allergies/Adverse Reactions: Allergies Allergy/AdvReac Type Severity Reaction Status Date / Time No Known Allergies Allergy Verified 02/27/16 12:51 Physical Exam - Constitutional Appears: In Acute Distress, Chronically Ill - Head Exam Head Exam: ATRAUMATIC, NORMAL INSPECTION - Eye Exam Eye Exam: EOMI, Normal appearance - Neck Exam Neck exam: Positive for: Normal Inspection. Negative for: Tenderness - Respiratory Exam Respiratory Exam: Rales, Respiratory Distress - Cardiovascular Exam Cardiovascular Exam: Irregular Rhythm, +S1 - GI/Abdominal Exam GI & Abdominal Exam: Soft. absent: Tenderness - Extremities Exam Extremities exam: Positive for: normal inspection. Negative for: tenderness - Neurological Exam Neurological exam: Altered, CN II-XII Intact - Skin Skin Exam: Dry, Warm Results - Vital Signs Recent Vital Signs: Last Vital Signs Temp 97.5 F L 02/13/17 15:47 Pulse 94 H 02/13/17 15:47 Resp 20 02/13/17 15:47 BP 145/73 02/13/17 15:47 Pulse Ox 96 02/13/17 15:47 - Labs Result Diagrams: 02/13/17 07:40 02/13/17 07:40 Labs: Laboratory Results - last 24 hr 02/16/17 10:52 POC Glucose (mg/dL) 115 H Assessment & Plan (1) Ischemic cardiomyopathy Status: Acute (2) Afib Status: Acute (3) Congestive heart failure Status: Acute (4) ESRD (end stage renal disease) on dialysis Status: Chronic (5) CAD (coronary artery disease) of artery bypass graft Status: Acute (6) Acute pulmonary edema with congestive heart failure Status: Acute (7) Atrial flutter with rapid ventricular response Status: Acute (8) Cardiomyopathy Status: Acute (9) Diabetic nephropathy associated with type 2 diabetes mellitus Status: Acute - Assessment and Plan (Free Text) Plan: EMERGENT DIALYSIS
--- NOTE | 2017-02-18 08:37 | CARD ---
APPROVED REPORT EKG Measurement Heart [id number] <Conclusion> Atrial fibrillation Incomplete right bundle branch block Possible Right ventricular hypertrophy ST elevation, consider lateral injury or acute infarct Prolonged QT ACUTE TN / STEMI Abnormal ECG
== END 2017-02-13 20:00 | DRG 121 ==
LOC: C.ER 04:16 → C.9E 06:54 → C.6T 15:29 → C.9I 02-06 11:43 → C.6T 02-09 01:16
PROVIDERS: ADMIT Internal Medicine Nephrology; ATTEND Internal Medicine Nephrology
PROC: 5A1D60Z (ICD-10-PCS; principal; 2017-02-04)
PROC: 5A09457 Assistance with Respiratory Ventilation, 24-96 Consecutive Hours, Continuous Positive Airway Pressure (ICD-10-PCS; 2017-02-04)
PROC: 05HM33Z Insertion of Infusion Device into Right Internal Jugular Vein, Percutaneous Approach (ICD-10-PCS; 2017-02-06)
PROC: B543ZZA Ultrasonography of Right Jugular Veins, Guidance (ICD-10-PCS; 2017-02-06)
PROC: 4A023N7 Measurement of Cardiac Sampling and Pressure, Left Heart, Percutaneous Approach (ICD-10-PCS; 2017-02-11)
PROC: B2151ZZ Fluoroscopy of Left Heart using Low Osmolar Contrast (ICD-10-PCS; 2017-02-11)
PROC: B2131ZZ Fluoroscopy of Multiple Coronary Artery Bypass Grafts using Low Osmolar Contrast (ICD-10-PCS; 2017-02-11)
PROC: B2111ZZ Fluoroscopy of Multiple Coronary Arteries using Low Osmolar Contrast (ICD-10-PCS; 2017-02-11)
DX: I21.4 Non-ST elevation (NSTEMI) myocardial infarction (principal); I50.33 Acute on chronic diastolic (congestive) heart failure; J18.9 Pneumonia, unspecified organism; N18.6 End stage renal disease; E11.22 Type 2 diabetes mellitus with diabetic chronic kidney disease; E11.649 Type 2 diabetes mellitus with hypoglycemia without coma; I27.2 Other secondary pulmonary hypertension; I13.2 Hypertensive heart and chronic kidney disease with heart failure and with stage 5 chronic kidney disease, or end stage renal disease; I95.3 Hypotension of hemodialysis; I48.91 Unspecified atrial fibrillation; Z99.2 Dependence on renal dialysis; I25.10 Atherosclerotic heart disease of native coronary artery without angina pectoris; I25.5 Ischemic cardiomyopathy; E78.5 Hyperlipidemia, unspecified; E78.00 Pure hypercholesterolemia, unspecified; K76.0 Fatty (change of) liver, not elsewhere classified; R74.0 Nonspecific elevation of levels of transaminase and lactic acid dehydrogenase [LDH]; Z95.5 Presence of coronary angioplasty implant and graft; Z98.41 Cataract extraction status, right eye; Z98.42 Cataract extraction status, left eye; Z95.1 Presence of aortocoronary bypass graft; Z79.01 Long term (current) use of anticoagulants

== ENCOUNTER 2017-02-16 09:48 | Inpatient (IN) | payer OTHER, MEDICARE ==
[2017-02-16 09:50] VITALS: BMI 24.9
--- NOTE | 2017-02-16 10:33 | C.PDOC ---
History Of Present Illness Patient was sent from [facility]. senior living reports that patient was hypoxic and lethargic this morning so they sent her to ED for evaluation. On arrival, patient has normal O2 saturations. She reports no complaints except that she needs dialysis today. She has hx of ESRD on HD, htn , dm and afib and is on eliquis. PMD: Dr. Zina Peterson Dialysis center: [facility] Chief Complaint (Nursing): Shortness Of Breath Past Medical History Vital Signs: Last Vital Signs Temp 97.5 F L 02/16/17 10:00 Pulse 95 H 02/16/17 10:00 Resp 25 H 02/16/17 10:00 BP 120/59 L 02/16/17 10:00 Pulse Ox 100 02/16/17 12:00 - Medical History PMH: Anemia, Arthritis, Atrial Fibrillation, Cardia Arrhythmia, Gastritis, HTN, Hypercholesterolemia, End Stage Renal Disease, Chronic Kidney Disease Surgical History: CABG (CABG x 4 on 03/06/2009.), Endoscopy - [facility] Procedures ASSISTANCE WITH RESPIRATORY VENTILATION, 24-96 HRS, CPAP (02/04/17) DILATION OF 1 COR ART WITH DRUG-ELUT INTRA, PERC APPROACH (05/09/15) FLUOROSCOPY OF LEFT HEART USING LOW OSMOLAR CONTRAST (02/04/17) FLUOROSCOPY OF MULT COR A GRAFT USING L OSM CONTRAST (02/04/17) FLUOROSCOPY OF MULT COR ART USING L OSM CONTRAST (02/04/17) FLUOROSCOPY OF SINGLE CORONARY ARTERY USING L OSM CONTRAST (05/09/15) INSERT INFUSION DEV IN R INT JUGULAR VEIN, PERC (02/04/17) MEASURE OF CARDIAC SAMPL & PRESSURE, L HEART, PERC APPROACH (02/04/17) OTHER LOCAL DESTRUC SKIN (12/27/13) PERFORMANCE OF URINARY FILTRATION, MULTIPLE (02/04/17) ULTRASONOGRAPHY OF RIGHT JUGULAR VEINS, GUIDANCE (02/04/17) Family History: States: Hypertension - Social History Hx Tobacco Use: No Hx Alcohol Use: No Hx Substance Use: No - Immunization History Hx Tetanus Toxoid Vaccination: No Hx Influenza Vaccination: Yes Hx Pneumococcal Vaccination: Yes Review Of Systems Constitutional: Negative for: Fever, Chills Cardiovascular: Negative for: Chest Pain, Palpitations, Orthopnea, Edema, Light Headedness Respiratory: Negative for: Cough, Shortness of Breath, SOB with Excertion Gastrointestinal: Negative for: Nausea, Vomiting, Abdominal Pain, Diarrhea, Constipation Physical Exam - Physical Exam Appears: Well, Non-toxic, No Acute Distress Head: Atraumatic, Normacephalic Eye(s): bilateral: Normal Inspection, PERRL, EOMI Chest: Symmetrical Cardiovascular: Rhythm Irregular Respiratory: Rales Gastrointestinal/Abdominal: Soft, No Tenderness, No Mass, No Distention Back: Normal Inspection, No CVA Tenderness ED Course And Treatment - Laboratory Results Result Diagrams: 02/16/17 11:22 02/16/17 11:22 O2 Sat by Pulse Oximetry: 100 Medical Decision Making Medical Decision Making: EKG shows atrial fibrillation at 84bpm with non-specific st changes Cardiac cath on 02/11 showed CAD with echo showing systolic dysfunction and patient was instructed to continue medications Spoke to Esperanza Peterson. He follows patient closely and she recently had full cardiac workup. Symptoms likely secondary to need for dialysis. Will admit patient for dialysis and Dr. Peterson will reevaluate after dialysis 11:42AM Labs at baseline. Cxray consistent with overload and ?mass with CT recommended. Will need further evaluation for this. Dr. Barroso evaluated patient in ED and will place orders for dialysis Disposition - Disposition Disposition: HOSPITALIZED Disposition Time: 10:00 Condition: FAIR - Clinical Impression Clinical Impression: ESRD (end stage renal disease) on dialysis
[2017-02-16 11:25] LABS: BASO % 0.5 % (0.0-2.0); EOS # 0.1 K/uL (0.0-0.7); EOS % 1.3 % (0.0-4.0); HEMOGLOBIN 10.3 g/dL (11.0-16.0); LYMPH # 0.3 K/uL (1.0-4.3); LYMPH % 4.3 % (20.0-40.0); MEAN CELL VOLUME 98.5 fL (81.0-99.0); MEAN CORPUSCULAR HEMOGLOBIN 31.9 pg (27.0-31.0); MEAN CORPUSCULAR HGB CONC 32.4 g/dL (33.0-37.0); MEAN PLATELET VOLUME 8.6 fL (7.2-11.7); MONO # 0.6 K/uL (0.0-0.8); MONO % 7.9 % (0.0-10.0); NEUT # 6.4 K/uL (1.8-7.0); NRBC % 0.1 % (0.0-2.0); PLATELET COUNT 202 K/uL (130-400); RBC 3.23 Mil/uL (3.80-5.20); WHITE BLOOD COUNT 7.4 K/uL (4.8-10.8)
[2017-02-16 11:33] LABS: ALBUMIN 3.7 g/dL (3.5-5.0)
[2017-02-16 11:37] LABS: CALCIUM 9.3 mg/dl (8.6-10.4)
[2017-02-16 11:52] LABS: BANDS 1 % (0-2); EOSINOPHIL 1 % (0-4); LYMPHOCYTE 3 % (20-40); MONOCYTE 8 % (0-10); NEUTROPHIL 87 % (50-75); PLATELET ESTIMATE NORMAL (NORMAL); TOTAL CELLS COUNTED 100
[2017-02-16 11:53] LABS: ANISOCYTOSIS SLIGHT; BURR CELLS SLIGHT; HYPOCHROMIC SLIGHT; OVALOCYTES SLIGHT; POIKILOCYTOSIS SLIGHT; TARGET CELLS SLIGHT
[2017-02-16 11:54] LABS: LARGE PLATELETS PRESENT; MICROCYTOSIS SLIGHT; TEARDROP CELLS SLIGHT
--- NOTE | 2017-02-16 11:55 | RAD ---
HISTORY: fatigue COMPARISON: 02/04/2017 FINDINGS: LUNGS: Moderate to severe venous congestion with confluent consolidative changes in the mid to lower lung zones with associated bilateral pleural effusions. Prominent consolidative changes in the suprahilar regions extending to the left lung apex where there is prominent consolidation in a somewhat masslike appearance. Relative lucency projecting over the right heart border may represent hiatal hernia. Correlation with chest CT may be helpful. PLEURA: As above. CARDIOVASCULAR: Status post median sternotomy and CABG. Cardiomegaly. Prominent superior mediastinum. OSSEOUS STRUCTURES: Degenerative changes in the spine and shoulders. VISUALIZED UPPER ABDOMEN: Grossly preserved. OTHER FINDINGS: None. IMPRESSION: Moderate to severe venous congestion with confluent consolidative changes in the mid to lower lung zones with associated bilateral pleural effusions. Prominent consolidative changes in the suprahilar regions extending to the left lung apex where there is prominent consolidation in a somewhat masslike appearance. Relative lucency projecting over the right heart border may represent hiatal hernia. Correlation with chest CT may be helpful.
--- NOTE | 2017-02-16 17:00 | CP.PCM.HP ---
Past Patient History - Infectious Disease Hx of Infectious Diseases: None - Past Medical History & Family History Past Medical History?: Yes - Past Social History Smoking Status: Never Smoked - CARDIAC Hx Atrial Fibrillation: Yes Hx Cardia Arrhythmia: Yes Hx Hypercholesterolemia: Yes Hx Hypertension: Yes - PULMONARY Hx Respiratory Disorders: Yes Hx Pulmonary Edema: Yes - NEUROLOGICAL Hx Neurological Disorder: Yes Hx Dizziness: Yes - HEENT Hx HEENT Problems: Yes Hx Cataracts: Yes (Left and right cataract extraction in 2011) Hx Glaucoma: Yes - RENAL Hx Chronic Kidney Disease: Yes - ENDOCRINE/METABOLIC Hx Endocrine Disorders: Yes Hx Diabetes Mellitus Type 2: Yes - HEMATOLOGICAL/ONCOLOGICAL Hx Anemia: Yes - INTEGUMENTARY Hx Dermatological Problems: No - MUSCULOSKELETAL/RHEUMATOLOGICAL Hx Arthritis: Yes - GASTROINTESTINAL Hx Gastritis: Yes - GENITOURINARY/GYNECOLOGICAL Hx Genitourinary Disorders: No - PSYCHIATRIC Hx Substance Use: No - SURGICAL HISTORY Hx Coronary Artery Bypass Graft: Yes (CABG x 4 on 03/06/2009.) - ANESTHESIA Hx Anesthesia: Yes Hx Anesthesia Reactions: No Hx Malignant Hyperthermia: No Meds Allergies/Adverse Reactions: Allergies Allergy/AdvReac Type Severity Reaction Status Date / Time No Known Allergies Allergy Verified 02/27/16 12:51 Physical Exam - Constitutional Appears: Well - Head Exam Head Exam: ATRAUMATIC, NORMAL INSPECTION, NORMOCEPHALIC - Eye Exam Eye Exam: EOMI, Normal appearance, PERRL Pupil Exam: NORMAL ACCOMODATION, PERRL - ENT Exam ENT Exam: Mucous Membranes Moist, Normal Exam - Neck Exam Neck exam: Positive for: Normal Inspection - Respiratory Exam Respiratory Exam: Decreased Breath Sounds - Cardiovascular Exam Cardiovascular Exam: REGULAR RHYTHM, +S1, +S2 - GI/Abdominal Exam GI & Abdominal Exam: Diminished Bowel Sounds, Soft - Rectal Exam Rectal Exam: Deferred Results - Vital Signs Recent Vital Signs: Last Vital Signs Temp 97.5 F L 02/16/17 10:00 Pulse 101 H 02/16/17 14:35 Resp 14 02/16/17 14:35 BP 124/67 02/16/17 14:35 Pulse Ox 99 02/16/17 14:35 - Labs Result Diagrams: 02/16/17 11:22 02/16/17 11:22
[2017-02-16] MEDS ORDERED: Dextrose 50% SYRINGE Inj (50 ml) IV STA (17:41)
[2017-02-16] MEDS: MethylPREDNISolone 40 mg Vial IVP SCH (23:00)
[2017-02-16] MEDS: Silver Sulfadiazine 1% Cream (20 gm) TOP SCH (23:00)
[2017-02-17] MEDS: Albuterol-Ipratrop 3 mg / 0.5 (3 ml) UD INH SCH ×4 (02:07→20:26)
[2017-02-17] MEDS: MethylPREDNISolone 40 mg Vial IVP SCH ×3 (05:39→21:31)
[2017-02-17] MEDS: Fluticasone-Salmeterol 250-50mcg Diskus INH SCH ×3 (07:47→20:26)
--- NOTE | 2017-02-17 08:38 | CP.PCM.CON ---
History of Present Illness - History of Present Illness History of Present Illness: Cardiology Consult note for Dr. Seo Reason for consult: Atrial fibrillation 76 year old female PMHx of A-fib on eliquis, CAD, ESRD on HD MWF, HTN, DM, and HLD presented to ER with increased dyspnea in need of emergent dialysis on . Patient was sent from [facility] at [facility] where she was hypoxic and lethargic in the morning and was sent in to the ER. Patient was recently discharged 02/13/17 after being admitted for SOB on 02/04/17 when during hospital course she was transferred to ICU after an PUNCH MACHINE OPERATOR was called on two occasions for hypotension and lethargy. During previous admission patient was satrted on midodrine 2.5mg po bid. This AM patient was seen at bedside resting comfortably eating breakfast, sitting upright, and was AO x 3. She had HD yesterday and reported feeling much better. As per nursing, patient's HR has been in 100-130s bpm when she is eating and off venti mask. She denied any acute complaints of headache, dizziness, chest pain, palpitations, SOB, abdominal pain, nausea, vomiting, bowel/bladder complaints, pain/swelling in her legs bilaterally. Patient did complain of a productive cough and was noticed to have some scant blood in a napkin that she had coughed in to- patient was advised to cough into a cup next time. PMD: Dr Esperanza Peterson Dialysis center: [facility] PMHx: A-fib, CAD, ESRD, HTN, DM, and HLD PSurgHx: CABG x 4 2008, AV fistula Family Hx: HTN Social Hx: Denies tobacco, alcohol, or illicit drug use Meds: please see chart Allergies: NKDA ROS: denied any acute complaints of headache, dizziness, chest pain, palpitations, SOB, abdominal pain, nausea, vomiting, bowel/bladder complaints, pain/swelling in her legs bilaterally. admitted to productive cough and some right hip pain Review of Systems - Constitutional Constitutional: As Per HPI. absent: Chills, Fever - EENT Eyes: As Per HPI. absent: Blurred Vision Ears: As Per HPI. absent: Dizziness Nose/Mouth/Throat: As Per HPI. absent: Sore Throat - Cardiovascular Cardiovascular: As Per HPI, Irregular Heart Rhythm. absent: Chest Pain, Dyspnea , Edema, Palpitations - Respiratory Respiratory: As Per HPI, Cough, Chest Congestion. absent: Dyspnea, Dyspnea on Exertion, Wheezing - Gastrointestinal Gastrointestinal: As Per HPI. absent: Abdominal Pain, Constipation, Diarrhea, Nausea, Vomiting - Musculoskeletal Musculoskeletal: As Per HPI. absent: Numbness, Tingling Additional comments: right hip pain - Integumentary Integumentary: As Per HPI. absent: Rash - Neurological Neurological: As Per HPI. absent: Dizziness, Headaches - Psychiatric Psychiatric: As Per HPI. absent: Anxiety - Endocrine Endocrine: As Per HPI. absent: Palpitations, Polydipsia - Hematologic/Lymphatic Hematologic: As Per HPI. absent: Easy Bleeding, Easy Bruising Past Patient History - Infectious Disease Hx of Infectious Diseases: None - Past Medical History & Family History Past Medical History?: Yes - Past Social History Smoking Status: Never Smoked - CARDIAC Hx Atrial Fibrillation: Yes Hx Cardia Arrhythmia: Yes Hx Hypercholesterolemia: Yes Hx Hypertension: Yes - PULMONARY Hx Respiratory Disorders: Yes Hx Pulmonary Edema: Yes - NEUROLOGICAL Hx Neurological Disorder: Yes Hx Dizziness: Yes - HEENT Hx HEENT Problems: Yes Hx Cataracts: Yes (Left and right cataract extraction in 2011) Hx Glaucoma: Yes - RENAL Hx Chronic Kidney Disease: Yes Date of Last Dialysis Treatment: 02/16/17 - ENDOCRINE/METABOLIC Hx Endocrine Disorders: Yes Hx Diabetes Mellitus Type 2: Yes - HEMATOLOGICAL/ONCOLOGICAL Hx Anemia: Yes - INTEGUMENTARY Hx Dermatological Problems: No - MUSCULOSKELETAL/RHEUMATOLOGICAL Hx Arthritis: Yes Hx Falls: No - GASTROINTESTINAL Hx Gastritis: Yes - GENITOURINARY/GYNECOLOGICAL Hx Genitourinary Disorders: No - PSYCHIATRIC Hx Substance Use: No - SURGICAL HISTORY Hx Coronary Artery Bypass Graft: Yes (CABG x 4 on 03/06/2009.) - ANESTHESIA Hx Anesthesia: Yes Hx Anesthesia Reactions: No Hx Malignant Hyperthermia: No Meds Allergies/Adverse Reactions: Allergies Allergy/AdvReac Type Severity Reaction Status Date / Time No Known Allergies Allergy Verified 02/27/16 12:51 - Medications Medications: Current Medications Acetaminophen (Tylenol 325mg Tab) 650 mg PO Q4 PRN PRN Reason: Pain, Mild (1-3) Albuterol/Ipratropium (Duoneb 3 Mg/0.5 Mg (3 Ml) Ud) 3 ml INH RQ6 [facility] Last Admin: 02/17/17 07:47 Dose: 3 ml Apixaban (Eliquis) 2.5 mg PO BID [facility] Cilostazol (Pletal) 100 mg PO BID [facility] Diltiazem HCl (Cardizem) 30 mg PO TID [facility] Doxycycline Hyclate (Doryx) 100 mg PO Q12 [facility] Last Admin: 02/16/17 22:59 Dose: 100 mg Famotidine (Pepcid) 20 mg PO DAILY [facility] Furosemide (Lasix) 80 mg IVP DAILY [facility] Insulin Aspart (Novolog) 0 unit SC ACHS [facility] PRN Reason: Protocol Methylprednisolone (Solu-Medrol) 40 mg IVP Q8H [facility] Last Admin: 02/17/17 05:39 Dose: 40 mg Midodrine (Proamatine) 5 mg PO TID [facility] Fluticasone/Salmeterol (Advair Diskus 250/50) 1 puff INH RBID [facility] Last Admin: 02/17/17 07:49 Dose: Not Given Sevelamer Carbonate (Renvela) 800 mg PO TID [facility] Silver Sulfadiazine (Silvadene 1% 20 Gm) 0 ea TOP QSHIFT [facility] Last Admin: 02/16/17 23:00 Dose: 1 applic Physical Exam - Constitutional Appears: Non-toxic, No Acute Distress - Head Exam Head Exam: NORMAL INSPECTION, NORMOCEPHALIC - Eye Exam Eye Exam: EOMI, Normal appearance, PERRL. absent: Conjunctival injection, Scleral icterus - ENT Exam ENT Exam: Mucous Membranes Moist - Neck Exam Neck exam: Positive for: Full Rom, Normal Inspection - Respiratory Exam Respiratory Exam: Decreased Breath Sounds (posterior b/l lower lung munguia), NORMAL BREATHING PATTERN. absent: Accessory Muscle Use, Rales, Rhonchi, Wheezes , Respiratory Distress - Cardiovascular Exam Cardiovascular Exam: Tachycardia, Irregular Rhythm, +S1, +S2 - GI/Abdominal Exam GI & Abdominal Exam: Normal Bowel Sounds, Soft. absent: Firm, Guarding, Rigid, Tenderness - Extremities Exam Extremities exam: Positive for: normal capillary refill, normal inspection, pedal pulses present. Negative for: pedal edema - Back Exam Back exam: NORMAL INSPECTION. absent: rash noted - Neurological Exam Neurological exam: Alert, Oriented x3 - Psychiatric Exam Psychiatric exam: Normal Affect, Normal Mood - Skin Skin Exam: Dry, Intact, Normal Color, Warm Results - Vital Signs Recent Vital Signs: Last Vital Signs Temp 98.4 F 02/17/17 00:27 Pulse 99 H 02/17/17 08:00 Resp 20 02/17/17 00:27 BP 150/80 02/17/17 00:27 Pulse Ox 100 02/17/17 00:27 - Labs Result Diagrams: 02/16/17 11:22 02/16/17 11:22 Labs: Laboratory Results - last 24 hr 02/16/17 02/16/17 02/16/17 17:29 18:18 20:49 POC Glucose (mg/dL) 58 L 170 H 112 H 02/17/17 07:31 POC Glucose (mg/dL) 223 H Assessment & Plan - Assessment and Plan (Free Text) Assessment: 76 year old female PMHx of A-fib on eliquis, CAD, ESRD on HD MWF, HTN, DM, and HLD presented to ER with increased dyspnea in need of emergent dialysis on . Cardiology consulted for A-fib Plan: -Patient HR elevated when she is eating and off ventimask. On prior admissions, patient's Afib has been rate controlled. Will monitor. CHADS2-VASC score : 7 points -EKG 02/16: Atrial fibrillation with possible RVH and nonspecific ST and T wave abnl; HR 84bpm -Patient has hx of CAD s/p PCI and CABG -Cardiac cath on last admission 02/11 showed L Main: proximal 30% LAD: Mid 100% but MORILLO to LAD patent L Cx:Proximal 90% but SVG to OM1 and OM2 patent RCA: Ostial 50% with good RYAN 3 flow EF: 60%, EDP 19, No AV gradient Grafts are patent -Echo 02/09 Normal overall LV systolic function with paradoxical septal motion. LA volume index is markedly dilated. RA size severely dilated. Systolic function is severely reduced. RV is severely dilated. Severe pulmonary HTN. -Lipid panel on last admission WNL TG 46 Cholesterol 81 LDL < 30 HDL 53 -Eliquis 2.5mg po bid -Pletal 100mg po bid -Cardizem 30mg po tid -Amiodarone 200mg po daily -Lasix 80mg ivp daily -Midodrine 5mg po tid Case discussed with Dr. Gabbi Trevino PGY2
[2017-02-17] MEDS: Cilostazol 100 mg Tab UD PO SCH ×2 (11:20→18:13)
--- NOTE | 2017-02-17 11:39 | CP.PCM.PN ---
Subjective - Date & Time of Evaluation Date of Evaluation: 02/17/17 Time of Evaluation: 11:20 - Subjective Subjective: clinically same Objective - Vital Signs/Intake and Output Vital Signs (last 24 hours): Temp Pulse Resp BP Pulse Ox 97.9 F 108 H 20 109/70 91 L 02/17/17 10:09 02/17/17 10:09 02/17/17 10:09 02/17/17 11:17 02/17/17 10:09 - Medications Medications: Current Medications Acetaminophen (Tylenol 325mg Tab) 650 mg PO Q4 PRN PRN Reason: Pain, Mild (1-3) Albuterol/Ipratropium (Duoneb 3 Mg/0.5 Mg (3 Ml) Ud) 3 ml INH RQ6 [facility] Last Admin: 02/17/17 07:47 Dose: 3 ml Apixaban (Eliquis) 2.5 mg PO BID [facility] Last Admin: 02/17/17 11:19 Dose: 2.5 mg Cilostazol (Pletal) 100 mg PO BID [facility] Last Admin: 02/17/17 11:20 Dose: 100 mg Diltiazem HCl (Cardizem) 30 mg PO TID [facility] Last Admin: 02/17/17 11:19 Dose: 30 mg Doxycycline Hyclate (Doryx) 100 mg PO Q12 [facility] Last Admin: 02/17/17 11:17 Dose: 100 mg Famotidine (Pepcid) 20 mg PO DAILY [facility] Last Admin: 02/17/17 11:19 Dose: 20 mg Furosemide (Lasix) 80 mg IVP DAILY [facility] Last Admin: 02/17/17 11:17 Dose: 80 mg Insulin Aspart (Novolog) 0 unit SC ACHS [facility] PRN Reason: Protocol Methylprednisolone (Solu-Medrol) 40 mg IVP Q8H [facility] Last Admin: 02/17/17 05:39 Dose: 40 mg Midodrine (Proamatine) 5 mg PO TID [facility] Last Admin: 02/17/17 11:17 Dose: 5 mg Fluticasone/Salmeterol (Advair Diskus 250/50) 1 puff INH RBID [facility] Last Admin: 02/17/17 07:49 Dose: Not Given Sevelamer Carbonate (Renvela) 800 mg PO TID [facility] Last Admin: 02/17/17 11:19 Dose: 800 mg Silver Sulfadiazine (Silvadene 1% 20 Gm) 0 ea TOP QSHIFT [facility] Last Admin: 02/16/17 23:00 Dose: 1 applic - Constitutional Appears: Well - Head Exam Head Exam: ATRAUMATIC, NORMAL INSPECTION, NORMOCEPHALIC - Eye Exam Eye Exam: EOMI, Normal appearance, PERRL Pupil Exam: NORMAL ACCOMODATION, PERRL - ENT Exam ENT Exam: Mucous Membranes Moist, Normal Exam - Neck Exam Neck Exam: Full ROM, Normal Inspection. absent: Lymphadenopathy - Respiratory Exam Respiratory Exam: Decreased Breath Sounds - Cardiovascular Exam Cardiovascular Exam: REGULAR RHYTHM, +S1, +S2 - GI/Abdominal Exam GI & Abdominal Exam: Soft, Diminished Bowel Sounds - Rectal Exam Rectal Exam: Deferred
--- NOTE | 2017-02-17 12:00 | CP.PCM.CON ---
History of Present Illness - History of Present Illness History of Present Illness: 76 year old female PMHx of A-fib on eliquis, CAD, ESRD on HD MWF, HTN, DM, and HLD presented to ER with increased dyspnea in need of emergent dialysis on . Patient was sent from [facility] where she was hypoxic and lethargic in the morning and was sent in to the ER. 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 During previous admission patient was satrted on midodrine 2.5mg po bid. This AM patient was seen at bedside resting comfortably eating breakfast, sitting upright, and was AO x 3. She had HD yesterday and reported feeling much better. As per nursing, patient's HR has been in 100-130s bpm when she is eating and off venti mask. She denied any acute complaints of headache, dizziness, chest pain, palpitations, SOB, abdominal pain, nausea, vomiting, bowel/bladder complaints, pain/swelling in her legs bilaterally. she was emergently dialyzed yesterday for fluid overload. PMD: Dr Esperanza Peterson Dialysis center: [facility] PMHx: A-fib, CAD, ESRD, HTN, DM, and HLD PSurgHx: CABG x 4 2008, AV fistula Family Hx: HTN Social Hx: Denies tobacco, alcohol, or illicit drug use Meds: please see chart Allergies: NKDA Review of Systems - Constitutional Constitutional: As Per HPI Past Patient History - Infectious Disease Hx of Infectious Diseases: None - Past Medical History & Family History Past Medical History?: Yes - Past Social History Smoking Status: Never Smoked - CARDIAC Hx Atrial Fibrillation: Yes Hx Cardia Arrhythmia: Yes Hx Hypercholesterolemia: Yes Hx Hypertension: Yes - PULMONARY Hx Respiratory Disorders: Yes Hx Pulmonary Edema: Yes - NEUROLOGICAL Hx Neurological Disorder: Yes Hx Dizziness: Yes - HEENT Hx HEENT Problems: Yes Hx Cataracts: Yes (Left and right cataract extraction in 2011) Hx Glaucoma: Yes - RENAL Hx Chronic Kidney Disease: Yes Date of Last Dialysis Treatment: 02/16/17 - ENDOCRINE/METABOLIC Hx Endocrine Disorders: Yes Hx Diabetes Mellitus Type 2: Yes - HEMATOLOGICAL/ONCOLOGICAL Hx Anemia: Yes - INTEGUMENTARY Hx Dermatological Problems: No - MUSCULOSKELETAL/RHEUMATOLOGICAL Hx Arthritis: Yes Hx Falls: No - GASTROINTESTINAL Hx Gastritis: Yes - GENITOURINARY/GYNECOLOGICAL Hx Genitourinary Disorders: No - PSYCHIATRIC Hx Substance Use: No - SURGICAL HISTORY Hx Coronary Artery Bypass Graft: Yes (CABG x 4 on 03/06/2009.) - ANESTHESIA Hx Anesthesia: Yes Hx Anesthesia Reactions: No Hx Malignant Hyperthermia: No Meds Allergies/Adverse Reactions: Allergies Allergy/AdvReac Type Severity Reaction Status Date / Time No Known Allergies Allergy Verified 02/27/16 12:51 - Medications Medications: Current Medications Acetaminophen (Tylenol 325mg Tab) 650 mg PO Q4 PRN PRN Reason: Pain, Mild (1-3) Albuterol/Ipratropium (Duoneb 3 Mg/0.5 Mg (3 Ml) Ud) 3 ml INH RQ6 [facility] Last Admin: 02/17/17 07:47 Dose: 3 ml Apixaban (Eliquis) 2.5 mg PO BID [facility] Last Admin: 02/17/17 11:19 Dose: 2.5 mg Cilostazol (Pletal) 100 mg PO BID [facility] Last Admin: 02/17/17 11:20 Dose: 100 mg Diltiazem HCl (Cardizem) 30 mg PO TID [facility] Last Admin: 02/17/17 11:19 Dose: 30 mg Doxycycline Hyclate (Doryx) 100 mg PO Q12 [facility] Last Admin: 02/17/17 11:17 Dose: 100 mg Famotidine (Pepcid) 20 mg PO DAILY [facility] Last Admin: 02/17/17 11:19 Dose: 20 mg Furosemide (Lasix) 80 mg IVP DAILY [facility] Last Admin: 02/17/17 11:17 Dose: 80 mg Insulin Aspart (Novolog) 0 unit SC ACHS [facility] PRN Reason: Protocol Methylprednisolone (Solu-Medrol) 40 mg IVP Q8H [facility] Last Admin: 02/17/17 05:39 Dose: 40 mg Midodrine (Proamatine) 5 mg PO TID [facility] Last Admin: 02/17/17 11:17 Dose: 5 mg Fluticasone/Salmeterol (Advair Diskus 250/50) 1 puff INH RBID [facility] Last Admin: 02/17/17 07:49 Dose: Not Given Sevelamer Carbonate (Renvela) 800 mg PO TID [facility] Last Admin: 02/17/17 11:19 Dose: 800 mg Silver Sulfadiazine (Silvadene 1% 20 Gm) 0 ea TOP QSHIFT [facility] Last Admin: 02/16/17 23:00 Dose: 1 applic Physical Exam - Constitutional Appears: Non-toxic, No Acute Distress, Chronically Ill - Head Exam Head Exam: NORMAL INSPECTION - Eye Exam Eye Exam: Normal appearance - ENT Exam ENT Exam: Mucous Membranes Moist, Normal Exam - Neck Exam Neck exam: Positive for: Normal Inspection - Respiratory Exam Respiratory Exam: Decreased Breath Sounds, Rhonchi, NORMAL BREATHING PATTERN - Cardiovascular Exam Cardiovascular Exam: Tachycardia, Irregular Rhythm - GI/Abdominal Exam GI & Abdominal Exam: Distended, Soft - Extremities Exam Extremities exam: Positive for: normal inspection Results - Vital Signs Recent Vital Signs: Last Vital Signs Temp 97.9 F 02/17/17 10:09 Pulse 108 H 02/17/17 10:09 Resp 20 02/17/17 10:09 BP 109/70 02/17/17 11:17 Pulse Ox 91 L 02/17/17 10:09 - Labs Result Diagrams: 02/16/17 11:22 02/16/17 11:22 Labs: Laboratory Results - last 24 hr 02/16/17 02/16/17 02/16/17 17:29 18:18 20:49 POC Glucose (mg/dL) 58 L 170 H 112 H 02/17/17 07:31 POC Glucose (mg/dL) 223 H Assessment & Plan (1) ESRD (end stage renal disease) on dialysis Status: Chronic (2) Acute pulmonary edema with congestive heart failure Status: Acute (3) Atrial flutter with rapid ventricular response Status: Acute (4) Cardiomyopathy Status: Acute (5) Congestive heart failure Status: Acute - Assessment and Plan (Free Text) Assessment: hd tomorrow fluid restriction. on midodrine for low bp may dc lasix cardiology eval kevin w/ hd
[2017-02-17] MEDS ORDERED: Metoprolol 1 mg/ml Inj IVP ONE (12:45)
[2017-02-17] MEDS: (Novolog) Insulin Aspart, Recombinant 100 u/ml 10 ml vial SC SCH ×3 (13:17→22:48)
--- NOTE | 2017-02-17 14:31 | CP.PCM.CON ---
Past Patient History - Infectious Disease Hx of Infectious Diseases: None - Past Medical History & Family History Past Medical History?: Yes - Past Social History Smoking Status: Never Smoked - CARDIAC Hx Atrial Fibrillation: Yes Hx Cardia Arrhythmia: Yes Hx Hypercholesterolemia: Yes Hx Hypertension: Yes - PULMONARY Hx Respiratory Disorders: Yes Hx Pulmonary Edema: Yes - NEUROLOGICAL Hx Neurological Disorder: Yes Hx Dizziness: Yes - HEENT Hx HEENT Problems: Yes Hx Cataracts: Yes (Left and right cataract extraction in 2011) Hx Glaucoma: Yes - RENAL Hx Chronic Kidney Disease: Yes Date of Last Dialysis Treatment: 02/16/17 - ENDOCRINE/METABOLIC Hx Endocrine Disorders: Yes Hx Diabetes Mellitus Type 2: Yes - HEMATOLOGICAL/ONCOLOGICAL Hx Anemia: Yes - INTEGUMENTARY Hx Dermatological Problems: No - MUSCULOSKELETAL/RHEUMATOLOGICAL Hx Arthritis: Yes Hx Falls: No - GASTROINTESTINAL Hx Gastritis: Yes - GENITOURINARY/GYNECOLOGICAL Hx Genitourinary Disorders: No - PSYCHIATRIC Hx Substance Use: No - SURGICAL HISTORY Hx Coronary Artery Bypass Graft: Yes (CABG x 4 on 03/06/2009.) - ANESTHESIA Hx Anesthesia: Yes Hx Anesthesia Reactions: No Hx Malignant Hyperthermia: No Meds Allergies/Adverse Reactions: Allergies Allergy/AdvReac Type Severity Reaction Status Date / Time No Known Allergies Allergy Verified 02/27/16 12:51 - Medications Medications: Current Medications Acetaminophen (Tylenol 325mg Tab) 650 mg PO Q4 PRN PRN Reason: Pain, Mild (1-3) Albuterol/Ipratropium (Duoneb 3 Mg/0.5 Mg (3 Ml) Ud) 3 ml INH RQ6 [facility] Last Admin: 02/17/17 13:38 Dose: 3 ml Apixaban (Eliquis) 2.5 mg PO BID [facility] Last Admin: 02/17/17 11:19 Dose: 2.5 mg Cilostazol (Pletal) 100 mg PO BID [facility] Last Admin: 02/17/17 11:20 Dose: 100 mg Diltiazem HCl (Cardizem) 30 mg PO TID [facility] Last Admin: 02/17/17 13:17 Dose: 30 mg Doxycycline Hyclate (Doryx) 100 mg PO Q12 [facility] Last Admin: 02/17/17 11:17 Dose: 100 mg Famotidine (Pepcid) 20 mg PO DAILY [facility] Last Admin: 02/17/17 11:19 Dose: 20 mg Furosemide (Lasix) 80 mg IVP DAILY [facility] Last Admin: 02/17/17 11:17 Dose: 80 mg Insulin Aspart (Novolog) 0 unit SC ACHS [facility] PRN Reason: Protocol Last Admin: 02/17/17 13:17 Dose: 4 unit Insulin Glargine (Lantus) 25 unit SC HS [facility] Methylprednisolone (Solu-Medrol) 40 mg IVP Q8H [facility] Last Admin: 02/17/17 05:39 Dose: 40 mg Midodrine (Proamatine) 5 mg PO TID [facility] Last Admin: 02/17/17 13:18 Dose: 5 mg Fluticasone/Salmeterol (Advair Diskus 250/50) 1 puff INH RBID [facility] Last Admin: 02/17/17 07:49 Dose: Not Given Sevelamer Carbonate (Renvela) 800 mg PO TID [facility] Last Admin: 02/17/17 13:17 Dose: 800 mg Silver Sulfadiazine (Silvadene 1% 20 Gm) 0 ea TOP QSHIFT [facility] Last Admin: 02/16/17 23:00 Dose: 1 applic Results - Vital Signs Recent Vital Signs: Last Vital Signs Temp 97.9 F 02/17/17 10:09 Pulse 130 H 02/17/17 13:23 Resp 20 02/17/17 10:09 BP 118/67 02/17/17 13:23 Pulse Ox 91 L 02/17/17 10:09 - Labs Result Diagrams: 02/16/17 11:22 02/16/17 11:22 Labs: Laboratory Results - last 24 hr 02/16/17 02/16/17 02/16/17 17:29 18:18 20:49 POC Glucose (mg/dL) 58 L 170 H 112 H 02/17/17 02/17/17 07:31 12:14 POC Glucose (mg/dL) 223 H 429 H*
[2017-02-17] MEDS: (Lantus) Insulin Glargine, Recombinant SC SCH (21:34)
--- NOTE | 2017-02-17 22:28 | CP.PCM.CON ---
History of Present Illness - History of Present Illness History of Present Illness: Reason for consult: Dyspnea 76 year old female PMHx of A-fib on eliquis, CAD, ESRD on HD MWF, HTN, DM, and HLD presented to ER with increased dyspnea in need of emergent dialysis on . Patient was sent from [facility] at [facility] where she was hypoxic and lethargic in the morning and was sent in to the ER. Patient was recently discharged 02/13/17 after being admitted for SOB on 02/04/17 when during hospital course she was transferred to ICU after an [employer]ERK was called on two occasions for hypotension and lethargy. During previous admission patient was satrted on midodrine 2.5mg po bid. This AM patient was seen at bedside resting comfortably eating breakfast, sitting upright, and was AO x 3. She had HD yesterday and reported feeling much better. As per nursing, patient's HR has been in 100-130s bpm when she is eating and off venti mask. She denied any acute complaints of headache, dizziness, chest pain, palpitations, SOB, abdominal pain, nausea, vomiting, bowel/bladder complaints, pain/swelling in her legs bilaterally. Patient did complain of a productive cough and was noticed to have some scant blood in a napkin that she had coughed in to- patient was advised to cough into a cup next time. PMD: Dr Esperanza Peterson Manuscripts Curator: Dr Seo Dialysis center: [facility] PMHx: A-fib, CAD, ESRD, HTN, DM, and HLD PSurgHx: CABG x 4 2008, AV fistula Family Hx: HTN Social Hx: Denies tobacco, alcohol, or illicit drug use Meds: please see chart Allergies: NKDA ROS: denied any acute complaints of headache, dizziness, chest pain, palpitations, SOB, abdominal pain, nausea, vomiting, bowel/bladder complaints, pain/swelling in her legs bilaterally. admitted to productive cough and some right hip pain Review of Systems - Constitutional Constitutional: As Per HPI. absent: Chills, Fever - EENT Eyes: As Per HPI. absent: Blurred Vision Ears: As Per HPI. absent: Dizziness Nose/Mouth/Throat: As Per HPI. absent: Sore Throat - Cardiovascular Cardiovascular: As Per HPI, Irregular Heart Rhythm. absent: Chest Pain, Dyspnea , Edema, Palpitations - Respiratory Respiratory: As Per HPI, Cough, Chest Congestion. absent: Dyspnea, Dyspnea on Exertion, Wheezing - Gastrointestinal Gastrointestinal: As Per HPI. absent: Abdominal Pain, Constipation, Diarrhea, Nausea, Vomiting - Musculoskeletal Musculoskeletal: As Per HPI. absent: Numbness, Tingling Additional comments: right hip pain - Integumentary Integumentary: As Per HPI. absent: Rash - Neurological Neurological: As Per HPI. absent: Dizziness, Headaches - Psychiatric Psychiatric: As Per HPI. absent: Anxiety - Endocrine Endocrine: As Per HPI. absent: Palpitations, Polydipsia - Hematologic/Lymphatic Hematologic: As Per HPI. absent: Easy Bleeding, Easy Bruising Physical Exam - Constitutional Appears: Non-toxic, No Acute Distress - Head Exam Head Exam: NORMAL INSPECTION, NORMOCEPHALIC - Eye Exam Eye Exam: EOMI, Normal appearance, PERRL. absent: Conjunctival injection, Scleral icterus - ENT Exam ENT Exam: Mucous Membranes Moist - Neck Exam Neck exam: Positive for: Full Rom, Normal Inspection - Respiratory Exam Respiratory Exam: Decreased Breath Sounds (posterior b/l lower lung munguia), NORMAL BREATHING PATTERN. absent: Accessory Muscle Use, Rales, Rhonchi, Wheezes , Respiratory Distress - Cardiovascular Exam Cardiovascular Exam: Tachycardia, Irregular Rhythm, +S1, +S2 - GI/Abdominal Exam GI & Abdominal Exam: Normal Bowel Sounds, Soft. absent: Firm, Guarding, Rigid, Tenderness - Extremities Exam Extremities exam: Positive for: normal capillary refill, normal inspection, pedal pulses present. Negative for: pedal edema - Back Exam Back exam: NORMAL INSPECTION. absent: rash noted - Neurological Exam Neurological exam: Alert, Oriented x3 - Psychiatric Exam Psychiatric exam: Normal Affect, Normal Mood - Skin Skin Exam: Dry, Intact, Normal Color, Warm Past Patient History - Infectious Disease Hx of Infectious Diseases: None - Past Medical History & Family History Past Medical History?: Yes - Past Social History Smoking Status: Never Smoked - CARDIAC Hx Atrial Fibrillation: Yes Hx Cardia Arrhythmia: Yes Hx Hypercholesterolemia: Yes Hx Hypertension: Yes - PULMONARY Hx Respiratory Disorders: Yes Hx Pulmonary Edema: Yes - NEUROLOGICAL Hx Neurological Disorder: Yes Hx Dizziness: Yes - HEENT Hx HEENT Problems: Yes Hx Cataracts: Yes (Left and right cataract extraction in 2011) Hx Glaucoma: Yes - RENAL Hx Chronic Kidney Disease: Yes Date of Last Dialysis Treatment: 02/16/17 - ENDOCRINE/METABOLIC Hx Endocrine Disorders: Yes Hx Diabetes Mellitus Type 2: Yes - HEMATOLOGICAL/ONCOLOGICAL Hx Anemia: Yes - INTEGUMENTARY Hx Dermatological Problems: No - MUSCULOSKELETAL/RHEUMATOLOGICAL Hx Arthritis: Yes Hx Falls: No - GASTROINTESTINAL Hx Gastritis: Yes - GENITOURINARY/GYNECOLOGICAL Hx Genitourinary Disorders: No - PSYCHIATRIC Hx Substance Use: No - SURGICAL HISTORY Hx Coronary Artery Bypass Graft: Yes (CABG x 4 on 03/06/2009.) - ANESTHESIA Hx Anesthesia: Yes Hx Anesthesia Reactions: No Hx Malignant Hyperthermia: No Meds Allergies/Adverse Reactions: Allergies Allergy/AdvReac Type Severity Reaction Status Date / Time No Known Allergies Allergy Verified 02/27/16 12:51 - Medications Medications: Current Medications Acetaminophen (Tylenol 325mg Tab) 650 mg PO Q4 PRN PRN Reason: Pain, Mild (1-3) Albuterol/Ipratropium (Duoneb 3 Mg/0.5 Mg (3 Ml) Ud) 3 ml INH RQ6 [facility] Last Admin: 02/17/17 20:26 Dose: 3 ml Amiodarone HCl (Cordarone) 200 mg PO DAILY [facility] Apixaban (Eliquis) 2.5 mg PO BID [facility] Last Admin: 02/17/17 18:21 Dose: 2.5 mg Cilostazol (Pletal) 100 mg PO BID [facility] Last Admin: 02/17/17 18:13 Dose: 100 mg Diltiazem HCl (Cardizem) 30 mg PO TID [facility] Last Admin: 02/17/17 18:11 Dose: 30 mg Doxycycline Hyclate (Doryx) 100 mg PO Q12 [facility] Last Admin: 02/17/17 21:31 Dose: 100 mg Famotidine (Pepcid) 20 mg PO DAILY [facility] Last Admin: 02/17/17 11:19 Dose: 20 mg Furosemide (Lasix) 80 mg IVP DAILY [facility] Last Admin: 02/17/17 11:17 Dose: 80 mg Insulin Aspart (Novolog) 0 unit SC ACHS [facility] PRN Reason: Protocol Last Admin: 02/17/17 18:11 Dose: 6 unit Insulin Glargine (Lantus) 25 unit SC HS [facility] Last Admin: 02/17/17 21:34 Dose: 25 units Methylprednisolone (Solu-Medrol) 40 mg IVP Q8H [facility] Last Admin: 07/11/17 21:31 Dose: 40 mg Midodrine (Proamatine) 5 mg PO TID [facility] Last Admin: 02/17/17 18:21 Dose: 5 mg Fluticasone/Salmeterol (Advair Diskus 250/50) 1 puff INH RBID [facility] Last Admin: 02/17/17 20:26 Dose: 1 puff Sevelamer Carbonate (Renvela) 800 mg PO TID [facility] Last Admin: 02/17/17 18:11 Dose: 800 mg Silver Sulfadiazine (Silvadene 1% 20 Gm) 0 ea TOP QSHIFT [facility] Last Admin: 02/16/17 23:00 Dose: 1 applic Results - Vital Signs Recent Vital Signs: Last Vital Signs Temp 99.3 F 02/17/17 17:15 Pulse 85 02/17/17 17:15 Resp 20 02/17/17 17:15 BP 102/59 L 02/17/17 17:15 Pulse Ox 93 L 02/17/17 17:15 - Labs Result Diagrams: 02/16/17 11:22 02/16/17 11:22 Labs: Laboratory Results - last 24 hr 02/17/17 02/17/17 02/17/17 07:31 12:14 17:06 POC Glucose (mg/dL) 223 H 429 H* 324 H 02/17/17 22:01 POC Glucose (mg/dL) 407 H* Assessment & Plan - Assessment and Plan (Free Text) Assessment: Assessment & Plan - Assessment and Plan (Free Text) Assessment: 76 year old female PMHx of A-fib on eliquis, CAD, ESRD on HD MWF, HTN, DM, and HLD presented to ER with increased dyspnea in need of emergent dialysis on . Plan: -Patient HR elevated when she is eating and off ventimask. On prior admissions, patient's Afib has been rate controlled. Will monitor. CHADS2-VASC score : 7 points -EKG 02/16: Atrial fibrillation with possible RVH and nonspecific ST and T wave abnl; HR 84bpm -Patient has hx of CAD s/p PCI and CABG -Cardiac cath on last admission 02/11 showed L Main: proximal 30% LAD: Mid 100% but MORILLO to LAD patent L Cx:Proximal 90% but SVG to OM1 and OM2 patent RCA: Ostial 50% with good RYAN 3 flow EF: 60%, EDP 19, No AV gradient Grafts are patent -Echo 02/09 Normal overall LV systolic function with paradoxical septal motion. LA volume index is markedly dilated. RA size severely dilated. Systolic function is severely reduced. RV is severely dilated. Severe pulmonary HTN. -Lipid panel on last admission WNL TG 46 Cholesterol 81 LDL < 30 HDL 53 -Eliquis 2.5mg po bid -Pletal 100mg po bid -Cardizem 30mg po tid -Amiodarone 200mg po daily -Lasix 80mg ivp daily -Midodrine 5mg po tid Cardiology management as per Primary Manuscripts Curator: Dr. Seo I will sign off Thank you
[2017-02-18] MEDS: Albuterol-Ipratrop 3 mg / 0.5 (3 ml) UD INH SCH ×4 (01:31→19:33)
[2017-02-18] MEDS: Fluticasone-Salmeterol 250-50mcg Diskus INH SCH ×2 (07:42→19:33)
[2017-02-18] MEDS: MethylPREDNISolone 40 mg Vial IVP SCH ×3 (07:51→22:05)
[2017-02-18] MEDS: Silver Sulfadiazine 1% Cream (20 gm) TOP SCH ×2 (07:57→15:25)
[2017-02-18 08:41] LABS: ABG ALLEN TEST POS; ARTERIAL BLOOD GAS HCO3 25.4 mmol/L (21-28); ARTERIAL BLOOD GAS HEMOGLOBIN 11.7 g/dL (11.7-17.4); ARTERIAL BLOOD GAS PCO2 47 mm/Hg (35-45); ARTERIAL BLOOD GAS PH 7.36 (7.35-7.45); ARTERIAL BLOOD GAS PO2 68 mm/Hg (80-100)
--- NOTE | 2017-02-18 09:02 | CP.PCM.PN ---
Subjective - Date & Time of Evaluation Date of Evaluation: 02/18/17 Time of Evaluation: 07:30 - Subjective Subjective: Cardiology progress note for Dr. Seo Patient seen and examined at bedside. As per nursing patient's HR in 90s overnight. This AM she was on ventimask @ 40% and satting well but seemed tired in comparison to yesterday 02/17. HR was 100-120bpm this AM. Patient is due for HD today. She denied any acute complaints of chest pain, SOB, cough, abd pain, nausea, vomiting, bowel/bladder complaints, pain/swelling in legs bilaterally. Objective - Vital Signs/Intake and Output Vital Signs (last 24 hours): Temp Pulse Resp BP Pulse Ox 98.1 F 84 20 101/49 L 97 02/17/17 23:55 02/17/17 23:55 02/17/17 23:55 02/17/17 23:55 02/17/17 23:55 Intake and Output: 02/18/17 02/18/17 06:59 18:59 Intake Total 200 Balance 200 - Medications Medications: Current Medications Acetaminophen (Tylenol 325mg Tab) 650 mg PO Q4 PRN PRN Reason: Pain, Mild (1-3) Albuterol/Ipratropium (Duoneb 3 Mg/0.5 Mg (3 Ml) Ud) 3 ml INH RQ6 [facility] Last Admin: 02/18/17 01:31 Dose: 3 ml Amiodarone HCl (Cordarone) 200 mg PO DAILY [facility] Apixaban (Eliquis) 2.5 mg PO BID [facility] Last Admin: 02/17/17 18:21 Dose: 2.5 mg Cilostazol (Pletal) 100 mg PO BID [facility] Last Admin: 02/17/17 18:13 Dose: 100 mg Diltiazem HCl (Cardizem) 30 mg PO TID [facility] Last Admin: 02/17/17 18:11 Dose: 30 mg Doxycycline Hyclate (Doryx) 100 mg PO Q12 [facility] Last Admin: 02/17/17 21:31 Dose: 100 mg Famotidine (Pepcid) 20 mg PO DAILY [facility] Last Admin: 02/17/17 11:19 Dose: 20 mg Furosemide (Lasix) 80 mg IVP DAILY [facility] Last Admin: 02/17/17 11:17 Dose: 80 mg Insulin Aspart (Novolog) 0 unit SC ACHS [facility] PRN Reason: Protocol Last Admin: 02/17/17 22:48 Dose: 4 unit Insulin Glargine (Lantus) 25 unit SC HS [facility] Last Admin: 02/17/17 21:34 Dose: 25 units Methylprednisolone (Solu-Medrol) 40 mg IVP Q8H [facility] Last Admin: 02/18/17 07:51 Dose: 40 mg Midodrine (Proamatine) 5 mg PO TID [facility] Last Admin: 02/17/17 18:21 Dose: 5 mg Fluticasone/Salmeterol (Advair Diskus 250/50) 1 puff INH RBID [facility] Last Admin: 02/17/17 20:26 Dose: 1 puff Sevelamer Carbonate (Renvela) 800 mg PO TID [facility] Last Admin: 02/17/17 18:11 Dose: 800 mg Silver Sulfadiazine (Silvadene 1% 20 Gm) 0 ea TOP QSHIFT [facility] Last Admin: 02/18/17 07:57 Dose: 1 applic - Constitutional Appears: No Acute Distress, Chronically Ill - Head Exam Head Exam: NORMAL INSPECTION, NORMOCEPHALIC - Eye Exam Eye Exam: EOMI, Normal appearance. absent: Conjunctival injection, Scleral icterus Pupil Exam: NORMAL ACCOMODATION - ENT Exam ENT Exam: Mucous Membranes Dry - Respiratory Exam Respiratory Exam: Decreased Breath Sounds, NORMAL BREATHING PATTERN. absent: Accessory Muscle Use, Rales, Rhonchi, Wheezes, Respiratory Distress - Cardiovascular Exam Cardiovascular Exam: Tachycardia, Irregular Rhythm, +S1, +S2 - GI/Abdominal Exam GI & Abdominal Exam: Soft, Normal Bowel Sounds. absent: Tenderness - Extremities Exam Extremities Exam: Normal Inspection. absent: Pedal Edema, Tenderness - Neurological Exam Neurological Exam: Alert, Awake, Oriented x3 - Psychiatric Exam Psychiatric exam: Flat Affect - Skin Skin Exam: Dry, Intact Assessment and Plan - Assessment and Plan (Free Text) Assessment: 76 year old female PMHx of A-fib on eliquis, CAD, ESRD on HD MWF, HTN, DM, and HLD presented to ER with increased dyspnea in need of emergent dialysis on . Cardiology consulted for A-fib Plan: -Patient has known hx of Afib CHADS2-VASC score : 7 points -Patient HR elevated this AM 100-120bpm and was 90s overnight -Patient for HD today 02/18 -EKG 02/16: Atrial fibrillation with possible RVH and nonspecific ST and T wave abnl; HR 84bpm -Patient has hx of CAD s/p PCI and CABG -Cardiac cath on last admission 02/11 showed L Main: proximal 30% LAD: Mid 100% but MORILLO to LAD patent L Cx:Proximal 90% but SVG to OM1 and OM2 patent RCA: Ostial 50% with good RYAN 3 flow EF: 60%, EDP 19, No AV gradient Grafts are patent -Echo 02/09 Normal overall LV systolic function with paradoxical septal motion. LA volume index is markedly dilated. RA size severely dilated. Systolic function is severely reduced. RV is severely dilated. Severe pulmonary HTN. -Lipid panel on last admission WNL TG 46 Cholesterol 81 LDL < 30 HDL 53 -Eliquis 2.5mg po bid -Pletal 100mg po bid -Cardizem 30mg po tid -Amiodarone 200mg po daily -Lasix 80mg ivp daily -Midodrine 5mg po tid Case discussed with Dr. Gabbi Trevino PGY2
[2017-02-18] MEDS: (Novolog) Insulin Aspart, Recombinant 100 u/ml 10 ml vial SC SCH ×3 (09:34→22:04)
[2017-02-18] MEDS: Cilostazol 100 mg Tab UD PO SCH ×2 (09:34→17:20)
[2017-02-18 11:33] LABS: BASO % 0.5 % (0.0-2.0); CALCIUM 9.3 mg/dl (8.6-10.4); EOS % 0.1 % (0.0-4.0); HEMOGLOBIN 9.5 g/dL (11.0-16.0); LYMPH # 0.1 K/uL (1.0-4.3); LYMPH % 1.1 % (20.0-40.0); MEAN CELL VOLUME 100.2 fL (81.0-99.0); MEAN CORPUSCULAR HEMOGLOBIN 31.8 pg (27.0-31.0); MEAN CORPUSCULAR HGB CONC 31.7 g/dL (33.0-37.0); MEAN PLATELET VOLUME 8.8 fL (7.2-11.7); MONO # 0.1 K/uL (0.0-0.8); MONO % 1.5 % (0.0-10.0); NEUT # 6.9 K/uL (1.8-7.0); NEUT % 96.8 % (50.0-75.0); PLATELET COUNT 214 K/uL (130-400); RED CELL DISTRIBUTION WIDTH 16.4 % (11.5-14.5); WHITE BLOOD COUNT 7.2 K/uL (4.8-10.8)
[2017-02-18 12:20] LABS: LYMPHOCYTE 1 % (20-40); MONOCYTE 3 % (0-10); NEUTROPHIL 96 % (50-75); PLATELET ESTIMATE NORMAL (NORMAL); TOTAL CELLS COUNTED 100
[2017-02-18 12:21] LABS: ANISOCYTOSIS SLIGHT; OVALOCYTES SLIGHT; POIKILOCYTOSIS SLIGHT
[2017-02-18 12:22] LABS: HYPOCHROMIC SLIGHT
[2017-02-18] MEDS: Albumin Human 25% (12.5 gm/50 ml) IV STA (13:20)
--- NOTE | 2017-02-18 13:27 | CP.PCM.PN ---
Subjective - Date & Time of Evaluation Date of Evaluation: 02/18/17 Time of Evaluation: 13:25 - Subjective Subjective: Seen at dialysis Due to continued dyspnea, will increase UF 3700ml Remains in AFib- VR- 100s Still very weak No c/o n, v, f, c, d, CPs Objective - Vital Signs/Intake and Output Vital Signs (last 24 hours): Temp Pulse Resp BP Pulse Ox 98.3 F 85 20 97/57 L 97 02/18/17 11:00 02/18/17 11:00 02/18/17 11:00 02/18/17 12:30 02/18/17 11:00 - Medications Medications: Current Medications Acetaminophen (Tylenol 325mg Tab) 650 mg PO Q4 PRN PRN Reason: Pain, Mild (1-3) Albumin Human (Albumin Human 25% (12.5 Gm/50 Ml)) 12.5 gm IV ONCE ONE Stop: 02/18/17 13:31 Albuterol/Ipratropium (Duoneb 3 Mg/0.5 Mg (3 Ml) Ud) 3 ml INH RQ6 [facility] Last Admin: 02/18/17 01:31 Dose: 3 ml Amiodarone HCl (Cordarone) 200 mg PO DAILY [facility] Last Admin: 02/18/17 09:34 Dose: 200 mg Apixaban (Eliquis) 2.5 mg PO BID [facility] Last Admin: 02/18/17 09:34 Dose: 2.5 mg Cilostazol (Pletal) 100 mg PO BID [facility] Last Admin: 02/18/17 09:34 Dose: 100 mg Diltiazem HCl (Cardizem) 30 mg PO TID [facility] Last Admin: 02/18/17 09:34 Dose: 30 mg Doxycycline Hyclate (Doryx) 100 mg PO Q12 [facility] Last Admin: 02/18/17 09:34 Dose: 100 mg Famotidine (Pepcid) 20 mg PO DAILY [facility] Last Admin: 02/18/17 09:34 Dose: 20 mg Furosemide (Lasix) 80 mg IVP DAILY [facility] Last Admin: 02/18/17 09:35 Dose: 80 mg Insulin Aspart (Novolog) 0 unit SC ACHS [facility] PRN Reason: Protocol Insulin Glargine (Lantus) 25 unit SC HS [facility] Last Admin: 02/17/17 21:34 Dose: 25 units Methylprednisolone (Solu-Medrol) 40 mg IVP Q8H [facility] Last Admin: 02/18/17 07:51 Dose: 40 mg Midodrine (Proamatine) 5 mg PO TID [facility] Last Admin: 02/18/17 09:34 Dose: 5 mg Fluticasone/Salmeterol (Advair Diskus 250/50) 1 puff INH RBID [facility] Last Admin: 02/17/17 20:26 Dose: 1 puff Sevelamer Carbonate (Renvela) 800 mg PO TID [facility] Last Admin: 02/18/17 09:34 Dose: 800 mg Silver Sulfadiazine (Silvadene 1% 20 Gm) 0 ea TOP QSHIFT [facility] Last Admin: 02/18/17 07:57 Dose: 1 applic - Labs Labs: 02/18/17 11:19 02/18/17 11:19 - Constitutional Appears: In Acute Distress, Chronically Ill - Head Exam Head Exam: ATRAUMATIC, NORMAL INSPECTION - Eye Exam Eye Exam: EOMI, Normal appearance - Neck Exam Neck Exam: Normal Inspection. absent: Tenderness - Respiratory Exam Respiratory Exam: Wheezes, Respiratory Distress - Cardiovascular Exam Cardiovascular Exam: Irregular Rhythm, +S1 - GI/Abdominal Exam GI & Abdominal Exam: Soft. absent: Tenderness - Extremities Exam Extremities Exam: Normal Inspection, Tenderness. absent: Pedal Edema - Neurological Exam Neurological Exam: Alert, CN II-XII Intact - Skin Skin Exam: Dry, Warm Assessment and Plan (1) ESRD (end stage renal disease) on dialysis Status: Chronic (2) Afib Status: Acute (3) CAD (coronary artery disease) of artery bypass graft Status: Acute (4) Congestive heart failure Status: Acute (5) Ischemic cardiomyopathy Status: Acute - Assessment and Plan (Free Text) Plan: Increase UF rate Monitor BP- maintain with midodrine if necessary Will need HD 4x/week as outpt as well
[2017-02-18] MEDS ORDERED: Albumin Human 25% (12.5 gm/50 ml) IV ONE (13:30)
--- NOTE | 2017-02-18 14:17 | CARD ---
APPROVED REPORT EKG Measurement Heart [id number] <Conclusion> Atrial fibrillation Possible Right ventricular hypertrophy Nonspecific ST and T wave abnormality Abnormal ECG
--- NOTE | 2017-02-18 14:20 | CP.PCM.PN ---
Subjective - Date & Time of Evaluation Date of Evaluation: 02/18/17 Time of Evaluation: 14:20 Objective - Vital Signs/Intake and Output Vital Signs (last 24 hours): Temp Pulse Resp BP Pulse Ox 98.3 F 85 20 90/53 L 97 02/18/17 11:00 02/18/17 11:00 02/18/17 11:00 02/18/17 13:30 02/18/17 11:00 - Medications Medications: Current Medications Acetaminophen (Tylenol 325mg Tab) 650 mg PO Q4 PRN PRN Reason: Pain, Mild (1-3) Albuterol/Ipratropium (Duoneb 3 Mg/0.5 Mg (3 Ml) Ud) 3 ml INH RQ6 [facility] Last Admin: 02/18/17 01:31 Dose: 3 ml Amiodarone HCl (Cordarone) 200 mg PO DAILY [facility] Last Admin: 02/18/17 09:34 Dose: 200 mg Apixaban (Eliquis) 2.5 mg PO BID [facility] Last Admin: 02/18/17 09:34 Dose: 2.5 mg Cilostazol (Pletal) 100 mg PO BID [facility] Last Admin: 02/18/17 09:34 Dose: 100 mg Diltiazem HCl (Cardizem) 30 mg PO TID [facility] Last Admin: 02/18/17 09:34 Dose: 30 mg Doxycycline Hyclate (Doryx) 100 mg PO Q12 [facility] Last Admin: 02/18/17 09:34 Dose: 100 mg Famotidine (Pepcid) 20 mg PO DAILY [facility] Last Admin: 02/18/17 09:34 Dose: 20 mg Furosemide (Lasix) 80 mg IVP DAILY [facility] Last Admin: 02/18/17 09:35 Dose: 80 mg Insulin Aspart (Novolog) 0 unit SC ACHS [facility] PRN Reason: Protocol Insulin Glargine (Lantus) 25 unit SC HS [facility] Last Admin: 02/17/17 21:34 Dose: 25 units Methylprednisolone (Solu-Medrol) 40 mg IVP Q8H [facility] Last Admin: 02/18/17 07:51 Dose: 40 mg Midodrine (Proamatine) 5 mg PO TID [facility] Last Admin: 02/18/17 09:34 Dose: 5 mg Fluticasone/Salmeterol (Advair Diskus 250/50) 1 puff INH RBID [facility] Last Admin: 02/17/17 20:26 Dose: 1 puff Sevelamer Carbonate (Renvela) 800 mg PO TID [facility] Last Admin: 02/18/17 09:34 Dose: 800 mg Silver Sulfadiazine (Silvadene 1% 20 Gm) 0 ea TOP QSHIFT [facility] Last Admin: 02/18/17 07:57 Dose: 1 applic - Labs Labs: 02/18/17 11:19 02/18/17 11:19
--- NOTE | 2017-02-18 18:21 | CP.PCM.PN ---
Subjective - Date & Time of Evaluation Date of Evaluation: 02/18/17 Time of Evaluation: 10:00 - Subjective Subjective: clinically same Objective - Vital Signs/Intake and Output Vital Signs (last 24 hours): Temp Pulse Resp BP Pulse Ox 97.9 F 94 H 20 93/50 L 97 02/18/17 15:32 02/18/17 15:32 02/18/17 15:32 02/18/17 15:32 02/18/17 15:32 - Medications Medications: Current Medications Acetaminophen (Tylenol 325mg Tab) 650 mg PO Q4 PRN PRN Reason: Pain, Mild (1-3) Albuterol/Ipratropium (Duoneb 3 Mg/0.5 Mg (3 Ml) Ud) 3 ml INH RQ6 [facility] Last Admin: 02/18/17 01:31 Dose: 3 ml Amiodarone HCl (Cordarone) 200 mg PO DAILY [facility] Last Admin: 02/18/17 09:34 Dose: 200 mg Apixaban (Eliquis) 2.5 mg PO BID [facility] Last Admin: 02/18/17 17:20 Dose: 2.5 mg Cilostazol (Pletal) 100 mg PO BID [facility] Last Admin: 02/18/17 17:20 Dose: 100 mg Diltiazem HCl (Cardizem) 30 mg PO TID [facility] Last Admin: 02/18/17 17:29 Dose: Not Given Doxycycline Hyclate (Doryx) 100 mg PO Q12 [facility] Last Admin: 02/18/17 09:34 Dose: 100 mg Famotidine (Pepcid) 20 mg PO DAILY [facility] Last Admin: 02/18/17 09:34 Dose: 20 mg Furosemide (Lasix) 80 mg IVP DAILY [facility] Last Admin: 02/18/17 09:35 Dose: 80 mg Insulin Aspart (Novolog) 0 unit SC ACHS [facility] PRN Reason: Protocol Last Admin: 02/18/17 17:27 Dose: Not Given Insulin Glargine (Lantus) 25 unit SC HS [facility] Last Admin: 02/17/17 21:34 Dose: 25 units Methylprednisolone (Solu-Medrol) 40 mg IVP Q8H [facility] Last Admin: 02/18/17 15:23 Dose: 40 mg Midodrine (Proamatine) 5 mg PO TID [facility] Last Admin: 02/18/17 17:20 Dose: 5 mg Fluticasone/Salmeterol (Advair Diskus 250/50) 1 puff INH RBID [facility] Last Admin: 02/17/17 20:26 Dose: 1 puff Sevelamer Carbonate (Renvela) 800 mg PO TID [facility] Last Admin: 02/18/17 17:20 Dose: 800 mg Silver Sulfadiazine (Silvadene 1% 20 Gm) 0 ea TOP QSHIFT [facility] Last Admin: 02/18/17 15:25 Dose: 1 applic - Labs Labs: 02/18/17 11:19 02/18/17 11:19
[2017-02-18] MEDS ORDERED: Azithromycin 500 MG in Sodium Chloride 0.9% 250 ML IVPB SCH (22:00)
[2017-02-18] MEDS: (Lantus) Insulin Glargine, Recombinant SC SCH (22:05)
[2017-02-18] MEDS: Azithromycin 500 MG in Sodium Chloride 0.9% 250 ML IVPB SCH (22:07)
--- NOTE | 2017-02-18 23:39 | CP.PCM.PN ---
<Radhika Posada - Last Filed: 02/19/17 01:29> Subjective - Date & Time of Evaluation Date of Evaluation: 02/18/17 Time of Evaluation: 23:13 - Subjective Subjective: House Doctor responding to SMEARER called for Hypotension. 76F received dialysis Thursday were 2.7 kg was removed. She underwent dialysis today were 3 kg was removed. She was given 1 vial of albumin. She was started on Mitodrine afterwards, but her blood pressure remained hypotensive. Patient was give 250mL fluid challenged and the vitals remained: BP 68/40 check both arms and legs. Patient was given total of 1 L of fluids, BP went up to 91/67. ABG was drawn and ICU consult was placed as request from Primary Attending. Objective - Vital Signs/Intake and Output Vital Signs (last 24 hours): Temp Pulse Resp BP Pulse Ox 97.9 F 94 H 20 93/50 L 97 02/18/17 15:32 02/18/17 18:52 02/18/17 15:32 02/18/17 15:32 02/18/17 15:32 - Medications Medications: Current Medications Acetaminophen (Tylenol 325mg Tab) 650 mg PO Q4 PRN PRN Reason: Pain, Mild (1-3) Albuterol/Ipratropium (Duoneb 3 Mg/0.5 Mg (3 Ml) Ud) 3 ml INH RQ6 [facility] Last Admin: 02/18/17 19:33 Dose: 3 ml Amiodarone HCl (Cordarone) 200 mg PO DAILY [facility] Last Admin: 02/18/17 09:34 Dose: 200 mg Apixaban (Eliquis) 2.5 mg PO BID [facility] Last Admin: 02/18/17 17:20 Dose: 2.5 mg Cilostazol (Pletal) 100 mg PO BID [facility] Last Admin: 02/18/17 17:20 Dose: 100 mg Diltiazem HCl (Cardizem) 30 mg PO TID [facility] Last Admin: 02/18/17 17:29 Dose: Not Given Doxycycline Hyclate (Doryx) 100 mg PO Q12 [facility] Last Admin: 02/18/17 22:04 Dose: 100 mg Famotidine (Pepcid) 20 mg PO DAILY [facility] Last Admin: 02/18/17 09:34 Dose: 20 mg Furosemide (Lasix) 80 mg IVP DAILY [facility] Last Admin: 02/18/17 09:35 Dose: 80 mg Azithromycin 500 mg/ Sodium (Chloride) 250 mls @ 250 mls/hr IVPB Q24H [facility] Last Admin: 02/18/17 22:07 Dose: 250 mls/hr Ceftriaxone Sodium 1 gm/ (Sodium Chloride) 100 mls @ 100 mls/hr IVPB Q24H [facility] Last Admin: 02/18/17 19:30 Dose: 100 mls/hr Insulin Aspart (Novolog) 0 unit SC ACHS [facility] PRN Reason: Protocol Last Admin: 02/18/17 22:04 Dose: 1 unit Insulin Glargine (Lantus) 25 unit SC HS [facility] Last Admin: 02/18/17 22:05 Dose: 25 units Methylprednisolone (Solu-Medrol) 40 mg IVP Q8H [facility] Last Admin: 02/18/17 22:05 Dose: 40 mg Midodrine (Proamatine) 5 mg PO TID [facility] Last Admin: 02/18/17 17:20 Dose: 5 mg Fluticasone/Salmeterol (Advair Diskus 250/50) 1 puff INH RBID [facility] Last Admin: 02/18/17 19:33 Dose: 1 puff Sevelamer Carbonate (Renvela) 800 mg PO TID [facility] Last Admin: 02/18/17 17:20 Dose: 800 mg Silver Sulfadiazine (Silvadene 1% 20 Gm) 0 ea TOP QSHIFT [facility] Last Admin: 02/18/17 15:25 Dose: 1 applic - Labs Labs: 02/18/17 11:19 02/18/17 11:19 <Uzair Charles P - Last Filed: 02/21/17 06:25> Objective - Vital Signs/Intake and Output Vital Signs (last 24 hours): Temp Pulse Resp BP Pulse Ox 98.1 F 105 H 20 109/66 94 L 02/20/17 23:26 02/21/17 04:06 02/20/17 23:26 02/20/17 23:26 02/20/17 23:26 Intake and Output: 02/20/17 02/21/17 18:59 06:59 Intake Total 840 250 Output Total 0 Balance 840 250 - Medications Medications: Current Medications Acetaminophen (Tylenol 325mg Tab) 650 mg PO Q4 PRN PRN Reason: Pain, Mild (1-3) Albuterol/Ipratropium (Duoneb 3 Mg/0.5 Mg (3 Ml) Ud) 3 ml INH RQ6 [facility] Last Admin: 02/21/17 02:06 Dose: 3 ml Amiodarone HCl (Cordarone) 200 mg PO DAILY [facility] Last Admin: 02/20/17 10:34 Dose: 200 mg Apixaban (Eliquis) 2.5 mg PO BID [facility] Last Admin: 02/20/17 17:48 Dose: 2.5 mg Cilostazol (Pletal) 100 mg PO BID [facility] Last Admin: 02/20/17 17:48 Dose: 100 mg Digoxin (Lanoxin) 0.125 mg PO DAILY@1800 [facility] Last Admin: 02/20/17 17:47 Dose: 0.125 mg Doxycycline Hyclate (Doryx) 100 mg PO Q12 [facility] Last Admin: 02/20/17 21:10 Dose: 100 mg Epoetin Sj (Procrit) 10,000 unit IV MWF [facility] Last Admin: 02/20/17 11:00 Dose: 10,000 unit Famotidine (Pepcid) 20 mg PO DAILY [facility] Last Admin: 02/20/17 10:32 Dose: 20 mg Azithromycin 500 mg/ Sodium (Chloride) 250 mls @ 250 mls/hr IVPB Q24H [facility] Last Admin: 02/20/17 23:03 Dose: 250 mls/hr Ceftriaxone Sodium 1 gm/ (Sodium Chloride) 100 mls @ 100 mls/hr IVPB Q24H [facility] Last Admin: 02/20/17 21:16 Dose: 100 mls/hr Insulin Aspart (Novolog) 0 unit SC ACHS [facility] PRN Reason: Protocol Last Admin: 02/20/17 21:10 Dose: Not Given Insulin Glargine (Lantus) 25 unit SC Q12H [facility] Last Admin: 02/21/17 05:58 Dose: 25 units Methylprednisolone (Solu-Medrol) 40 mg IVP Q12 [facility] Last Admin: 02/20/17 21:19 Dose: 40 mg Midodrine (Proamatine) 5 mg PO TID [facility] Last Admin: 02/20/17 17:47 Dose: 5 mg Fluticasone/Salmeterol (Advair Diskus 250/50) 1 puff INH RBID [facility] Last Admin: 02/20/17 20:27 Dose: 1 puff Sevelamer Carbonate (Renvela) 800 mg PO TID [facility] Last Admin: 02/20/17 17:48 Dose: 800 mg Silver Sulfadiazine (Silvadene 1% 20 Gm) 0 ea TOP QSHIFT [facility] Last Admin: 02/21/17 06:00 Dose: 1 applic - Labs Labs: 02/20/17 06:47 02/20/17 06:47 Attending/Attestation - Attestation I have personally seen and examined this patient.: Yes I have fully participated in the care of the patient.: Yes I have reviewed all pertinent clinical information, including history, physical exam and plan: Yes Notes (Text): Hypotension likely due to difficulty in tolerating reduction of the volume with h/o RV failure, patient responded with improvement in pressure, lactic acidosis with fluid chalange. ICU team was consulted by primary team as well. *
[2017-02-19 00:27] LABS: ABG ALLEN TEST POS; ARTERIAL BLOOD GAS HCO3 24.1 mmol/L (21-28); ARTERIAL BLOOD GAS O2 SAT 94.6 % (95-98); ARTERIAL BLOOD GAS PCO2 41 mm/Hg (35-45); ARTERIAL BLOOD GAS PH 7.38 (7.35-7.45); ARTERIAL BLOOD GAS PO2 60 mm/Hg (80-100); ARTERIAL BLOOD GAS TCO2 25.6 mmol/L (22-28)
[2017-02-19] MEDS: Albuterol-Ipratrop 3 mg / 0.5 (3 ml) UD INH SCH ×4 (01:54→19:44)
[2017-02-19 04:17] LABS: ABG ALLEN TEST POS; ARTERIAL BLOOD GAS HCO3 27.3 mmol/L (21-28); ARTERIAL BLOOD GAS O2 SAT 92.5 % (95-98); ARTERIAL BLOOD GAS PCO2 48 mm/Hg (35-45); ARTERIAL BLOOD GAS PH 7.39 (7.35-7.45); ARTERIAL BLOOD GAS PO2 57 mm/Hg (80-100); ARTERIAL BLOOD GAS TCO2 30.6 mmol/L (22-28)
[2017-02-19] MEDS: MethylPREDNISolone 40 mg Vial IVP SCH ×2 (05:31→21:29)
[2017-02-19] MEDS: Silver Sulfadiazine 1% Cream (20 gm) TOP SCH ×3 (06:36→21:36)
--- NOTE | 2017-02-19 07:09 | CP.PCM.PN ---
Subjective - Date & Time of Evaluation Date of Evaluation: 02/19/17 Time of Evaluation: 11:50 - Subjective Subjective: Cardiology progress note for Dr. Seo Patient seen and examined at bedside. Overnight events noted. Patient was transferred to ICU this morning. When I saw her she was resting comfortably in no acute distress. Patient had no acute complaints although she did report that when she was hypotensive overnight she felt dizzy. This AM she has been on ventimask and denies any complaints of SOB. Patient denied headache, dizziness, chest pain, palpitations, cough, abd pain, pain/swelling in her legs. She had HD Sunday 02/18 and Friday 02/16 which removed total ~6kg fluid. Objective - Vital Signs/Intake and Output Vital Signs (last 24 hours): Temp Pulse Resp BP Pulse Ox 97.9 F 106 H 20 105/46 L 97 02/18/17 15:32 02/19/17 01:30 02/19/17 01:30 02/19/17 01:30 02/19/17 01:30 - Medications Medications: Current Medications Acetaminophen (Tylenol 325mg Tab) 650 mg PO Q4 PRN PRN Reason: Pain, Mild (1-3) Albuterol/Ipratropium (Duoneb 3 Mg/0.5 Mg (3 Ml) Ud) 3 ml INH RQ6 [facility] Last Admin: 02/19/17 01:54 Dose: 3 ml Amiodarone HCl (Cordarone) 200 mg PO DAILY [facility] Last Admin: 02/18/17 09:34 Dose: 200 mg Apixaban (Eliquis) 2.5 mg PO BID [facility] Last Admin: 02/18/17 17:20 Dose: 2.5 mg Cilostazol (Pletal) 100 mg PO BID [facility] Last Admin: 02/18/17 17:20 Dose: 100 mg Diltiazem HCl (Cardizem) 30 mg PO TID [facility] Last Admin: 02/18/17 17:29 Dose: Not Given Doxycycline Hyclate (Doryx) 100 mg PO Q12 [facility] Last Admin: 02/18/17 22:04 Dose: 100 mg Famotidine (Pepcid) 20 mg PO DAILY [facility] Last Admin: 02/18/17 09:34 Dose: 20 mg Furosemide (Lasix) 80 mg IVP DAILY [facility] Last Admin: 02/18/17 09:35 Dose: 80 mg Azithromycin 500 mg/ Sodium (Chloride) 250 mls @ 250 mls/hr IVPB Q24H [facility] Last Admin: 02/18/17 22:07 Dose: 250 mls/hr Ceftriaxone Sodium 1 gm/ (Sodium Chloride) 100 mls @ 100 mls/hr IVPB Q24H [facility] Last Admin: 02/18/17 19:30 Dose: 100 mls/hr Insulin Aspart (Novolog) 0 unit SC ACHS [facility] PRN Reason: Protocol Last Admin: 02/18/17 22:04 Dose: 1 unit Insulin Glargine (Lantus) 25 unit SC HS [facility] Last Admin: 02/18/17 22:05 Dose: 25 units Methylprednisolone (Solu-Medrol) 40 mg IVP Q8H [facility] Last Admin: 02/19/17 05:31 Dose: 40 mg Midodrine (Proamatine) 5 mg PO TID [facility] Last Admin: 02/18/17 17:20 Dose: 5 mg Fluticasone/Salmeterol (Advair Diskus 250/50) 1 puff INH RBID [facility] Last Admin: 02/18/17 19:33 Dose: 1 puff Sevelamer Carbonate (Renvela) 800 mg PO TID [facility] Last Admin: 02/18/17 17:20 Dose: 800 mg Silver Sulfadiazine (Silvadene 1% 20 Gm) 0 ea TOP QSHIFT [facility] Last Admin: 02/19/17 06:36 Dose: 1 applic - Labs Labs: 02/18/17 11:19 02/18/17 11:19 - Constitutional Appears: No Acute Distress, Chronically Ill - Head Exam Head Exam: NORMAL INSPECTION, NORMOCEPHALIC - Eye Exam Eye Exam: EOMI, Normal appearance. absent: Conjunctival injection, Scleral icterus Pupil Exam: NORMAL ACCOMODATION - ENT Exam ENT Exam: Mucous Membranes Dry Additional comments: venti mask in place - Respiratory Exam Respiratory Exam: NORMAL BREATHING PATTERN. absent: Accessory Muscle Use, Respiratory Distress - Cardiovascular Exam Cardiovascular Exam: Tachycardia, Irregular Rhythm, +S1, +S2 - GI/Abdominal Exam GI & Abdominal Exam: Soft, Normal Bowel Sounds. absent: Tenderness - Extremities Exam Extremities Exam: Normal Inspection. absent: Pedal Edema, Tenderness - Neurological Exam Neurological Exam: Alert, Awake, Oriented x3 - Psychiatric Exam Psychiatric exam: Flat Affect - Skin Skin Exam: Dry, Intact Assessment and Plan - Assessment and Plan (Free Text) Assessment: 76 year old female PMHx of A-fib on eliquis, CAD, ESRD on HD MWF, HTN, DM, and HLD presented to ER with increased dyspnea in need of emergent dialysis on . Cardiology consulted for A-fib Plan: -Patient transferred to ICU this AM due to hypotension -Known hx of Afib with CHADS2-VASC score : 7 points -EKG 02/16: Atrial fibrillation with possible RVH and nonspecific ST and T wave abnl; HR 84bpm -Patient has hx of CAD s/p PCI and CABG -Cardiac cath on last admission 02/11 showed L Main: proximal 30% LAD: Mid 100% but MORILLO to LAD patent L Cx:Proximal 90% but SVG to OM1 and OM2 patent RCA: Ostial 50% with good RYAN 3 flow EF: 60%, EDP 19, No AV gradient Grafts are patent -Echo 02/09 Normal overall LV systolic function with paradoxical septal motion. LA volume index is markedly dilated. RA size severely dilated. Systolic function is severely reduced. RV is severely dilated. Severe pulmonary HTN. -Lipid panel on last admission WNL TG 46 Cholesterol 81 LDL < 30 HDL 53 -Patient started on digoxin today 02/19 with loading dose as follows: Digoxin 0.25mg po @ 11:35 02/19 Digoxin 0.125mg po @ 20:00 02/19 Digoxin 0.125mg po @ 4:00 02/20 -Will continue maintenance dose Digoxin 0.125mg po @ 18:00 daily from 02/20 onwards Will check digoxin level on 02/21 -Amiodarone 200mg po daily -Eliquis 2.5mg po bid -Pletal 100mg po bid -Lopressor 25mg po bid -Midodrine 5mg po tid Case discussed with Dr. Gabbi Trevino PGY2
[2017-02-19] MEDS: Fluticasone-Salmeterol 250-50mcg Diskus INH SCH ×2 (07:43→20:30)
[2017-02-19] MEDS: (Novolog) Insulin Aspart, Recombinant 100 u/ml 10 ml vial SC SCH ×3 (08:57→17:29)
--- NOTE | 2017-02-19 09:52 | CP.PCM.PN ---
Subjective - Date & Time of Evaluation Date of Evaluation: 02/19/17 Time of Evaluation: 09:50 - Subjective Subjective: s/p dialysis 02/18- UF 3000ml Claims unable to converse much today; appears more confused VR- 120s now; not on tele No overt dyspnea observed No CPs, n, v, f, c Objective - Vital Signs/Intake and Output Vital Signs (last 24 hours): Temp Pulse Resp BP Pulse Ox 97.9 F 124 H 20 143/55 L 96 02/19/17 07:18 02/19/17 08:26 02/19/17 07:18 02/19/17 08:26 02/19/17 07:18 - Medications Medications: Current Medications Acetaminophen (Tylenol 325mg Tab) 650 mg PO Q4 PRN PRN Reason: Pain, Mild (1-3) Albuterol/Ipratropium (Duoneb 3 Mg/0.5 Mg (3 Ml) Ud) 3 ml INH RQ6 [facility] Last Admin: 02/19/17 07:41 Dose: 3 ml Amiodarone HCl (Cordarone) 200 mg PO DAILY [facility] Last Admin: 02/18/17 09:34 Dose: 200 mg Apixaban (Eliquis) 2.5 mg PO BID [facility] Last Admin: 02/18/17 17:20 Dose: 2.5 mg Cilostazol (Pletal) 100 mg PO BID [facility] Last Admin: 02/18/17 17:20 Dose: 100 mg Diltiazem HCl (Cardizem) 30 mg PO TID [facility] Last Admin: 02/18/17 17:29 Dose: Not Given Doxycycline Hyclate (Doryx) 100 mg PO Q12 [facility] Last Admin: 02/18/17 22:04 Dose: 100 mg Famotidine (Pepcid) 20 mg PO DAILY [facility] Last Admin: 02/18/17 09:34 Dose: 20 mg Furosemide (Lasix) 80 mg IVP DAILY [facility] Last Admin: 02/18/17 09:35 Dose: 80 mg Azithromycin 500 mg/ Sodium (Chloride) 250 mls @ 250 mls/hr IVPB Q24H [facility] Last Admin: 02/18/17 22:07 Dose: 250 mls/hr Ceftriaxone Sodium 1 gm/ (Sodium Chloride) 100 mls @ 100 mls/hr IVPB Q24H [facility] Last Admin: 02/18/17 19:30 Dose: 100 mls/hr Insulin Aspart (Novolog) 0 unit SC ACHS [facility] PRN Reason: Protocol Last Admin: 02/19/17 08:57 Dose: 10 unit Insulin Glargine (Lantus) 25 unit SC HS [facility] Last Admin: 02/18/17 22:05 Dose: 25 units Methylprednisolone (Solu-Medrol) 40 mg IVP Q8H [facility] Last Admin: 02/19/17 05:31 Dose: 40 mg Midodrine (Proamatine) 5 mg PO TID [facility] Last Admin: 02/19/17 07:48 Dose: 5 mg Fluticasone/Salmeterol (Advair Diskus 250/50) 1 puff INH RBID [facility] Last Admin: 02/19/17 07:43 Dose: 1 puff Sevelamer Carbonate (Renvela) 800 mg PO TID [facility] Last Admin: 02/18/17 17:20 Dose: 800 mg Silver Sulfadiazine (Silvadene 1% 20 Gm) 0 ea TOP QSHIFT [facility] Last Admin: 02/19/17 06:36 Dose: 1 applic - Labs Labs: 02/18/17 11:19 02/18/17 11:19 - Constitutional Appears: In Acute Distress, Chronically Ill - Head Exam Head Exam: ATRAUMATIC, NORMAL INSPECTION - Eye Exam Eye Exam: EOMI, Normal appearance - Neck Exam Neck Exam: Normal Inspection. absent: Tenderness - Respiratory Exam Respiratory Exam: Rales, Respiratory Distress - Cardiovascular Exam Cardiovascular Exam: Tachycardia, Irregular Rhythm - GI/Abdominal Exam GI & Abdominal Exam: Soft. absent: Tenderness - Extremities Exam Extremities Exam: Normal Inspection. absent: Tenderness - Neurological Exam Neurological Exam: Altered, CN II-XII Intact - Skin Skin Exam: Dry, Warm Assessment and Plan (1) ESRD (end stage renal disease) on dialysis Status: Chronic (2) Afib Status: Acute (3) CAD (coronary artery disease) of artery bypass graft Status: Acute (4) Congestive heart failure Status: Acute (5) Ischemic cardiomyopathy Status: Acute - Assessment and Plan (Free Text) Plan: Recommend tele; cardio follow up for AFib with RPR Dialysis in AM- adequate UF Needs better rate control
[2017-02-19] MEDS ORDERED: Albumin Human 25% (12.5 gm/50 ml) IV ONE (10:32)
--- NOTE | 2017-02-19 10:35 | CP.PCM.PN ---
Subjective - Date & Time of Evaluation Date of Evaluation: 02/19/17 Time of Evaluation: 10:00 - Subjective Subjective: MANAGER MAC NOTES Pt seen and examined , awake, alert, c/o sob, denies any chest pain, abdominal pain , on monitor afib , HR varies from 99-130 , as per RN CHARGE ACCOUNTS AUDIT CLERK called secondary to hypotension , bp' in 60 and 1 liter bolus given and SBP up to 100"s this am bp has been in the 80"s and HR above 100"s Pt received extra dose of midodrine Objective - Vital Signs/Intake and Output Vital Signs (last 24 hours): Temp Pulse Resp BP Pulse Ox 97.9 F 96 H 20 87/42 L 95 02/19/17 07:18 02/19/17 10:05 02/19/17 07:18 02/19/17 10:05 02/19/17 10:05 - Medications Medications: Current Medications Acetaminophen (Tylenol 325mg Tab) 650 mg PO Q4 PRN PRN Reason: Pain, Mild (1-3) Albumin Human (Albumin Human 25% (12.5 Gm/50 Ml)) 12.5 gm IV ONCE ONE Stop: 02/19/17 10:33 Albuterol/Ipratropium (Duoneb 3 Mg/0.5 Mg (3 Ml) Ud) 3 ml INH RQ6 [facility] Last Admin: 02/19/17 07:41 Dose: 3 ml Amiodarone HCl (Cordarone) 200 mg PO DAILY [facility] Last Admin: 02/18/17 09:34 Dose: 200 mg Apixaban (Eliquis) 2.5 mg PO BID [facility] Last Admin: 02/18/17 17:20 Dose: 2.5 mg Cilostazol (Pletal) 100 mg PO BID [facility] Last Admin: 02/18/17 17:20 Dose: 100 mg Doxycycline Hyclate (Doryx) 100 mg PO Q12 [facility] Last Admin: 02/18/17 22:04 Dose: 100 mg Epoetin Sj (Procrit) 10,000 unit IV MWF [facility] Famotidine (Pepcid) 20 mg PO DAILY [facility] Last Admin: 02/18/17 09:34 Dose: 20 mg Azithromycin 500 mg/ Sodium (Chloride) 250 mls @ 250 mls/hr IVPB Q24H [facility] Last Admin: 02/18/17 22:07 Dose: 250 mls/hr Ceftriaxone Sodium 1 gm/ (Sodium Chloride) 100 mls @ 100 mls/hr IVPB Q24H [facility] Last Admin: 02/18/17 19:30 Dose: 100 mls/hr Insulin Aspart (Novolog) 0 unit SC ACHS [facility] PRN Reason: Protocol Last Admin: 02/19/17 08:57 Dose: 10 unit Insulin Glargine (Lantus) 25 unit SC HS [facility] Last Admin: 02/18/17 22:05 Dose: 25 units Methylprednisolone (Solu-Medrol) 40 mg IVP Q8H [facility] Last Admin: 02/19/17 05:31 Dose: 40 mg Metoprolol Tartrate (Lopressor) 25 mg PO BID [facility] Midodrine (Proamatine) 5 mg PO TID [facility] Last Admin: 02/19/17 10:23 Dose: Not Given Fluticasone/Salmeterol (Advair Diskus 250/50) 1 puff INH RBID [facility] Last Admin: 02/19/17 07:43 Dose: 1 puff Sevelamer Carbonate (Renvela) 800 mg PO TID [facility] Last Admin: 02/18/17 17:20 Dose: 800 mg Silver Sulfadiazine (Silvadene 1% 20 Gm) 0 ea TOP QSHIFT [facility] Last Admin: 02/19/17 06:36 Dose: 1 applic - Labs Labs: 02/18/17 11:19 02/18/17 11:19 - Constitutional Appears: Non-toxic (IN MODERATE DISTRESS ) - Respiratory Exam Respiratory Exam: Decreased Breath Sounds, Respiratory Distress (oxygen via NBM) - Cardiovascular Exam Cardiovascular Exam: Irregular Rhythm, +S1, +S2 (HR above 110 ) - Neurological Exam Neurological Exam: Alert, Awake Assessment and Plan - Assessment and Plan (Free Text) Assessment: 76 year old female PMHx of A-fib on eliquis, CAD, ESRD on HD MWF, HTN, DM, and HLD admitted for for increased dyspnea, hypoxia and had emergent HD pt hypontesive despite IVf and albumin and midodrine hr varies from 100-130"s D/W with Constanza , recommends to give albubin and contact cardiology for further recommendations D/W Dr. Hammond, recommends to stop amiodorone and lasix Pt remains hypotensive and transferred to ICU for further management The above plan discussed with Dr. Zina kim and agrees with plan
[2017-02-19] MEDS: Cilostazol 100 mg Tab UD PO SCH ×2 (10:49→17:25)
--- NOTE | 2017-02-19 11:16 | CP.PCM.CON ---
<Carolee Martinez - Last Filed: 02/19/17 11:43> History of Present Illness - History of Present Illness History of Present Illness: Per Tiara Lee's note this is a 76 year old female with medical history of atrial fibrillation on Eliquis, CAD, ESRD on dialysis, hypertension, diabetes , and HLD presented to the ER with increased dyspnea in need of emergent dialysis on 02/16. Patient was sent from [facility] at [facility] where she was hypoxic and lethargic in the morning and was sent in to the ER. Patient was recently discharged 02/13/17 after being admitted for SOB on 02/04/17 when during hospital course she was transferred to ICU after an [employer] DEVEL[employer]INE[employer] C was called on two occasions for hypotension and lethargy. During previous admission patient was satrted on midodrine 2.5mg po bid. Today the patient has been transferred to icu for hypotension. The patient was seen and examined at beside this AM. The patient states it is difficult to speak. The patient is alert and oriented x3. PMD: Dr Esperanza Peterson Dialysis center: [facility] PMHx: A-fib, CAD, ESRD, HTN, DM, and HLD PSurgHx: CABG x 4 2008, AV fistula Family Hx: HTN Social Hx: Denies tobacco, alcohol, or illicit drug use Meds: please see chart Allergies: NKDA Review of Systems - Review of Systems Systems not reviewed;Unavailable: Respiratory Distress (Patient states she cannot speak.) Past Patient History - Infectious Disease Hx of Infectious Diseases: None - Past Medical History & Family History Past Medical History?: Yes - Past Social History Smoking Status: Never Smoked - CARDIAC Hx Atrial Fibrillation: Yes Hx Cardia Arrhythmia: Yes Hx Hypercholesterolemia: Yes Hx Hypertension: Yes - PULMONARY Hx Respiratory Disorders: Yes Hx Pulmonary Edema: Yes - NEUROLOGICAL Hx Neurological Disorder: Yes Hx Dizziness: Yes - HEENT Hx HEENT Problems: Yes Hx Cataracts: Yes (Left and right cataract extraction in 2011) Hx Glaucoma: Yes - RENAL Hx Chronic Kidney Disease: Yes Date of Last Dialysis Treatment: 02/16/17 - ENDOCRINE/METABOLIC Hx Endocrine Disorders: Yes Hx Diabetes Mellitus Type 2: Yes - HEMATOLOGICAL/ONCOLOGICAL Hx Anemia: Yes - INTEGUMENTARY Hx Dermatological Problems: No - MUSCULOSKELETAL/RHEUMATOLOGICAL Hx Arthritis: Yes Hx Falls: No - GASTROINTESTINAL Hx Gastritis: Yes - GENITOURINARY/GYNECOLOGICAL Hx Genitourinary Disorders: No - PSYCHIATRIC Hx Substance Use: No - SURGICAL HISTORY Hx Coronary Artery Bypass Graft: Yes (CABG x 4 on 03/06/2009.) - ANESTHESIA Hx Anesthesia: Yes Hx Anesthesia Reactions: No Hx Malignant Hyperthermia: No Meds Allergies/Adverse Reactions: Allergies Allergy/AdvReac Type Severity Reaction Status Date / Time No Known Allergies Allergy Verified 02/27/16 12:51 - Medications Medications: Current Medications Acetaminophen (Tylenol 325mg Tab) 650 mg PO Q4 PRN PRN Reason: Pain, Mild (1-3) Albuterol/Ipratropium (Duoneb 3 Mg/0.5 Mg (3 Ml) Ud) 3 ml INH RQ6 [facility] Last Admin: 02/19/17 07:41 Dose: 3 ml Amiodarone HCl (Cordarone) 200 mg PO DAILY [facility] Last Admin: 02/18/17 09:34 Dose: 200 mg Apixaban (Eliquis) 2.5 mg PO BID [facility] Last Admin: 02/18/17 17:20 Dose: 2.5 mg Cilostazol (Pletal) 100 mg PO BID [facility] Last Admin: 02/18/17 17:20 Dose: 100 mg Doxycycline Hyclate (Doryx) 100 mg PO Q12 [facility] Last Admin: 02/18/17 22:04 Dose: 100 mg Epoetin Sj (Procrit) 10,000 unit IV MWF [facility] Famotidine (Pepcid) 20 mg PO DAILY [facility] Last Admin: 02/18/17 09:34 Dose: 20 mg Azithromycin 500 mg/ Sodium (Chloride) 250 mls @ 250 mls/hr IVPB Q24H [facility] Last Admin: 02/18/17 22:07 Dose: 250 mls/hr Ceftriaxone Sodium 1 gm/ (Sodium Chloride) 100 mls @ 100 mls/hr IVPB Q24H [facility] Last Admin: 02/18/17 19:30 Dose: 100 mls/hr Insulin Aspart (Novolog) 0 unit SC ACHS DON PRN Reason: Protocol Last Admin: 02/19/17 08:57 Dose: 10 unit Insulin Glargine (Lantus) 25 unit SC HS [facility] Last Admin: 02/18/17 22:05 Dose: 25 units Methylprednisolone (Solu-Medrol) 40 mg IVP Q8H [facility] Last Admin: 02/19/17 05:31 Dose: 40 mg Metoprolol Tartrate (Lopressor) 25 mg PO BID [facility] Midodrine (Proamatine) 5 mg PO TID [facility] Last Admin: 02/19/17 10:23 Dose: Not Given Fluticasone/Salmeterol (Advair Diskus 250/50) 1 puff INH RBID [facility] Last Admin: 02/19/17 07:43 Dose: 1 puff Sevelamer Carbonate (Renvela) 800 mg PO TID [facility] Last Admin: 02/18/17 17:20 Dose: 800 mg Silver Sulfadiazine (Silvadene 1% 20 Gm) 0 ea TOP QSHIFT [facility] Last Admin: 02/19/17 06:36 Dose: 1 applic Physical Exam - Constitutional Appears: In Acute Distress - Head Exam Head Exam: NORMAL INSPECTION - Respiratory Exam Respiratory Exam: NORMAL BREATHING PATTERN Additional comments: Was not able to assess the patient did not take deep breaths - Cardiovascular Exam Cardiovascular Exam: Irregular Rhythm (atrial fibrillation ), +S1, +S2. absent : REGULAR RHYTHM - GI/Abdominal Exam GI & Abdominal Exam: Normal Bowel Sounds, Soft - Extremities Exam Extremities exam: Negative for: joint swelling, pedal edema - Neurological Exam Neurological exam: Alert, Oriented x3 - Skin Skin Exam: Normal Color, Warm Results - Vital Signs Recent Vital Signs: Last Vital Signs Temp 97.9 F 02/19/17 07:18 Pulse 113 H 02/19/17 10:50 Resp 20 02/19/17 07:18 BP 88/33 L 02/19/17 10:50 Pulse Ox 97 02/19/17 10:50 - Labs Result Diagrams: 02/18/17 11:19 02/18/17 11:19 Labs: Laboratory Results - last 24 hr 02/18/17 02/18/17 02/18/17 11:19 11:19 11:40 WBC 7.2 RBC 3.00 L Hgb 9.5 L Hct 30.0 L MCV 100.2 H MCH 31.8 H MCHC 31.7 L RDW 16.4 H Plt Count 214 MPV 8.8 Neut % (Auto) 96.8 H Lymph % (Auto) 1.1 L Pinal % (Auto) 1.5 Eos % (Auto) 0.1 Baso % (Auto) 0.5 Neut # 6.9 Lymph # 0.1 L Pinal # 0.1 Eos # 0.0 Baso # 0.0 Neutrophils % (Manual) 96 H Lymphocytes % (Manual) 1 L Monocytes % (Manual) 3 Platelet Estimate Normal Hypochromasia (manual) Slight Poikilocytosis (manual Slight Anisocytosis (manual) Slight Ovalocytes Slight Puncture Site pCO2 pO2 HCO3 ABG pH ABG Total CO2 ABG O2 Saturation ABG Base Excess Nadir Test ABG Potassium A-a O2 Difference Respiratory Index Glucose Lactate Liter Flow FiO2 Crit Value Called To Crit Value Called By Crit Value Read Back Blood Gas Notified Time Sodium 130 L Potassium 5.0 Chloride 91 L Carbon Dioxide 26 Anion Gap 19 BUN 70 H Creatinine 5.6 H Est GFR ( Amer) 9 Est GFR (Non-Af Amer) 7 POC Glucose (mg/dL) 323 H Random Glucose 422 H* D Calcium 9.3 Arterial Blood Potassium 02/18/17 02/18/17 02/19/17 16:21 21:42 00:10 WBC RBC Hgb Hct MCV MCH MCHC RDW Plt Count MPV Neut % (Auto) Lymph % (Auto) Pinal % (Auto) Eos % (Auto) Baso % (Auto) Neut # Lymph # Pinal # Eos # Baso # Neutrophils % (Manual) Lymphocytes % (Manual) Monocytes % (Manual) Platelet Estimate Hypochromasia (manual) Poikilocytosis (manual Anisocytosis (manual) Ovalocytes Puncture Site R rad pCO2 41 pO2 60 L HCO3 24.1 ABG pH 7.38 ABG Total CO2 25.6 ABG O2 Saturation 94.6 L ABG Base Excess -0.8 Nadir Test Pos ABG Potassium 4.0 A-a O2 Difference 174.0 Respiratory Index 2.9 Glucose 474 H* D Lactate 4.8 H* Liter Flow 8.0 FiO2 40.0 Crit Value Called To Dr collier Crit Value Called By Sloane reynolds rt Crit Value Read Back Y Blood Gas Notified Time 28 Sodium 134.0 Potassium Chloride 97.0 L Carbon Dioxide Anion Gap BUN Creatinine Est GFR ( Amer) Est GFR (Non-Af Amer) POC Glucose (mg/dL) 230 H 464 H* Random Glucose Calcium Arterial Blood Potassium 4.0 02/19/17 02/19/17 02/19/17 04:13 06:06 07:08 WBC RBC Hgb Hct MCV MCH MCHC RDW Plt Count MPV Neut % (Auto) Lymph % (Auto) Pinal % (Auto) Eos % (Auto) Baso % (Auto) Neut # Lymph # Pinal # Eos # Baso # Neutrophils % (Manual) Lymphocytes % (Manual) Monocytes % (Manual) Platelet Estimate Hypochromasia (manual) Poikilocytosis (manual Anisocytosis (manual) Ovalocytes Puncture Site R rad pCO2 48 H pO2 57 L HCO3 27.3 ABG pH 7.39 ABG Total CO2 30.6 H ABG O2 Saturation 92.5 L ABG Base Excess 3.3 H Nadir Test Pos ABG Potassium 4.4 A-a O2 Difference 168.0 Respiratory Index 2.9 Glucose 402 H* Lactate 1.5 Liter Flow 8.0 FiO2 40.0 Crit Value Called To Dr collier Crit Value Called By Sloane reynolds rt Crit Value Read Back Y Blood Gas Notified Time 419 Sodium 134.0 Potassium Chloride 97.0 L Carbon Dioxide Anion Gap BUN Creatinine Est GFR ( Amer) Est GFR (Non-Af Amer) POC Glucose (mg/dL) 370 H 391 H Random Glucose Calcium Arterial Blood Potassium 4.4 Assessment & Plan - Assessment and Plan (Free Text) Assessment: 76 year old female PMHx of A-fib on eliquis, CAD, ESRD on HD MWF, HTN, DM, and HLD presented to ER with increased dyspnea in need of emergent dialysis on . Plan: Neuro: - Alert and Oriented x3 Pulm: - Respiratory Distress - f/u Chest X-ray 02/19 - Chest X-ray 02/16: Moderate to severe venous congestion with confluent consolidative changes in the mid to lower lung zones with associated bilateral pleural effusions - pCO2: 48; HCO3: 25.3; pH: 7.35 CV: - Cardiology Consult: Dr. Seo --> help appreciated - EKG 02/16: Atrial fibrillation with possible RVH and nonspecific ST and T wave abnl; HR 84bpm - Patient has hx of CAD s/p PCI and CABG - Cardiac cath on last admission 02/11 showed L Main: proximal 30% LAD: Mid 100% but MORILLO to LAD patent L Cx:Proximal 90% but SVG to OM1 and OM2 patent RCA: Ostial 50% with good RYAN 3 flow EF: 60%, EDP 19, No AV gradient Grafts are patent - Echo 02/09 Normal overall LV systolic function with paradoxical septal motion. LA volume index is markedly dilated. RA size severely dilated. Systolic function is severely reduced. RV is severely dilated. Severe pulmonary HTN. - Lipid panel on last admission WNL TG 46 Cholesterol 81 LDL < 30 HDL 53 - Patient started on digoxin today 02/19 with loading dose as follows: Digoxin 0.25mg po @ 11:35 02/19 Digoxin 0.125mg po @ 20:00 02/19 Digoxin 0.125mg po @ 4:00 02/20 - Will continue maintenance dose Digoxin 0.125mg po @ 18:00 daily from 02/20 onwards Will check digoxin level on 02/21 - Amiodarone 200mg po daily - Eliquis 2.5mg po bid - Pletal 100mg po bid - Lopressor 25mg po bid - Midodrine 5mg po tid Heme: - H/H (02/18): 9.5/30.0 Renal: - Renal Failure - Dialysis: Thursday//Thursday - Nephrology Consult: Dr. Barroso --> help appreciated GI: - Renal Diet DVT proph - SCDs Code status - full code Palliative Care Consult --> help appreciated Case discussed with Dr. Yi Martinez PGY-1 <Wilmer Richmond - Last Filed: 02/19/17 12:44> Meds - Medications Medications: Current Medications Acetaminophen (Tylenol 325mg Tab) 650 mg PO Q4 PRN PRN Reason: Pain, Mild (1-3) Albuterol/Ipratropium (Duoneb 3 Mg/0.5 Mg (3 Ml) Ud) 3 ml INH RQ6 [facility] Last Admin: 02/19/17 07:41 Dose: 3 ml Amiodarone HCl (Cordarone) 200 mg PO DAILY [facility] Last Admin: 02/19/17 10:49 Dose: Not Given Apixaban (Eliquis) 2.5 mg PO BID [facility] Last Admin: 02/19/17 10:49 Dose: Not Given Cilostazol (Pletal) 100 mg PO BID [facility] Last Admin: 02/19/17 10:49 Dose: Not Given Digoxin (Lanoxin) 0.125 mg PO ONCE ONE Stop: 02/19/17 20:01 Digoxin (Lanoxin) 0.125 mg PO ONCE ONE Stop: 02/20/17 04:01 Digoxin (Lanoxin) 0.125 mg PO DAILY@1800 [facility] Doxycycline Hyclate (Doryx) 100 mg PO Q12 [facility] Last Admin: 02/19/17 10:49 Dose: Not Given Epoetin Sj (Procrit) 10,000 unit IV MWF [facility] Famotidine (Pepcid) 20 mg PO DAILY [facility] Last Admin: 02/19/17 10:49 Dose: Not Given Azithromycin 500 mg/ Sodium (Chloride) 250 mls @ 250 mls/hr IVPB Q24H [facility] Last Admin: 02/18/17 22:07 Dose: 250 mls/hr Ceftriaxone Sodium 1 gm/ (Sodium Chloride) 100 mls @ 100 mls/hr IVPB Q24H [facility] Last Admin: 02/18/17 19:30 Dose: 100 mls/hr Insulin Aspart (Novolog) 0 unit SC ACHS [facility] PRN Reason: Protocol Last Admin: 02/19/17 08:57 Dose: 10 unit Insulin Glargine (Lantus) 25 unit SC HS [facility] Last Admin: 02/18/17 22:05 Dose: 25 units Methylprednisolone (Solu-Medrol) 40 mg IVP Q8H [facility] Last Admin: 02/19/17 05:31 Dose: 40 mg Metoprolol Tartrate (Lopressor) 25 mg PO BID [facility] Last Admin: 02/19/17 10:49 Dose: Not Given Midodrine (Proamatine) 5 mg PO TID [facility] Last Admin: 02/19/17 10:23 Dose: Not Given Fluticasone/Salmeterol (Advair Diskus 250/50) 1 puff INH RBID [facility] Last Admin: 02/19/17 07:43 Dose: 1 puff Sevelamer Carbonate (Renvela) 800 mg PO TID [facility] Last Admin: 02/19/17 10:49 Dose: Not Given Silver Sulfadiazine (Silvadene 1% 20 Gm) 0 ea TOP QSHIFT [facility] Last Admin: 02/19/17 06:36 Dose: 1 applic Results - Vital Signs Recent Vital Signs: Last Vital Signs Temp 97.9 F 02/19/17 07:18 Pulse 113 H 02/19/17 10:50 Resp 20 02/19/17 07:18 BP 88/33 L 02/19/17 10:50 Pulse Ox 97 02/19/17 10:50 - Labs Result Diagrams: 02/18/17 11:19 02/18/17 11:19 Labs: Laboratory Results - last 24 hr 02/18/17 02/18/17 02/19/17 16:21 21:42 00:10 Puncture Site R rad pCO2 41 pO2 60 L HCO3 24.1 ABG pH 7.38 ABG Total CO2 25.6 ABG O2 Saturation 94.6 L ABG Base Excess -0.8 ABG Hemoglobin ABG Carboxyhemoglobin POC ABG HHb (Measured) ABG Methemoglobin Nadir Test Pos ABG Potassium 4.0 A-a O2 Difference 174.0 Respiratory Index 2.9 Hgb O2 Saturation Sodium 134.0 Chloride 97.0 L Glucose 474 H* D Lactate 4.8 H* Liter Flow 8.0 FiO2 40.0 Crit Value Called To Dr collier Crit Value Called By Sloane reynolds rt Crit Value Read Back Y Blood Gas Notified Time 28 POC Glucose (mg/dL) 230 H 464 H* Arterial Blood Potassium 4.0 02/19/17 02/19/17 02/19/17 04:13 06:06 07:08 Puncture Site R rad pCO2 48 H pO2 57 L HCO3 27.3 ABG pH 7.39 ABG Total CO2 30.6 H ABG O2 Saturation 92.5 L ABG Base Excess 3.3 H ABG Hemoglobin ABG Carboxyhemoglobin POC ABG HHb (Measured) ABG Methemoglobin Nadir Test Pos ABG Potassium 4.4 A-a O2 Difference 168.0 Respiratory Index 2.9 Hgb O2 Saturation Sodium 134.0 Chloride 97.0 L Glucose 402 H* Lactate 1.5 Liter Flow 8.0 FiO2 40.0 Crit Value Called To Dr collier Crit Value Called By Sloane reynolds rt Crit Value Read Back Y Blood Gas Notified Time 419 POC Glucose (mg/dL) 370 H 391 H Arterial Blood Potassium 4.4 02/19/17 02/19/17 11:41 11:45 Puncture Site Rr pCO2 48 H pO2 73 L HCO3 25.3 ABG pH 7.35 ABG Total CO2 28.0 ABG O2 Saturation 96.9 ABG Base Excess 0.5 ABG Hemoglobin 9.6 L ABG Carboxyhemoglobin 2.2 H POC ABG HHb (Measured) 3.0 ABG Methemoglobin 1.3 Nadir Test Pos ABG Potassium A-a O2 Difference 152.0 Respiratory Index 2.1 Hgb O2 Saturation 93.4 L Sodium Chloride Glucose Lactate Liter Flow FiO2 40.0 Crit Value Called To Crit Value Called By Crit Value Read Back Blood Gas Notified Time POC Glucose (mg/dL) 472 H* Arterial Blood Potassium Attending/Attestation - Attestation I have personally seen and examined this patient.: Yes I have fully participated in the care of the patient.: Yes I have reviewed all pertinent clinical information: Yes Notes (Text): 02/19/17 12:32 I have seen and examined the patient. Medical records, lab studies, and imaging were reviewed by me and a management plan was formulated on multidisciplinary rounds with resident Dr. Martinez. I agree with their above documented assessment and plan. Patient has been dialyzed with fluid removal to improve pulmonary status. Unfortunately now complicated by hypotension. I would still remove more fluid with dialysis, but give volume back using albumin to decrease third spacing of fluid into pleural space. Will rate control afib with digoxin load. Critical Care Time 35 minutes. Multi-disciplinary rounds were performed with house staff, nursing, speech therapy, respiratory therapy, pharmacy and nutrition with integrated input from the primary team/attending and other consulting services. The documented time is cumulative and includes review of patient data/exams/labs/chart review and examination of the patient on rounds and throughout the day; time is exclusive of any procedures or teaching time.
[2017-02-19] MEDS ORDERED: Albumin Human 5% (12.5 gm/250 ml) IV ONE (11:25)
[2017-02-19] MEDS ORDERED: Digoxin 250 mcg (0.25 mg) Tab PO STA (11:34)
[2017-02-19 11:49] LABS: ABG ALLEN TEST POS; ARTERIAL BLOOD GAS HCO3 25.3 mmol/L (21-28); ARTERIAL BLOOD GAS HEMOGLOBIN 9.6 g/dL (11.7-17.4); ARTERIAL BLOOD GAS O2 SAT 96.9 % (95-98); ARTERIAL BLOOD GAS PCO2 48 mm/Hg (35-45); ARTERIAL BLOOD GAS PH 7.35 (7.35-7.45); ARTERIAL BLOOD GAS PO2 73 mm/Hg (80-100)
[2017-02-19] MEDS: Albumin Human 25% (12.5 gm/50 ml) IV STA (12:35)
--- NOTE | 2017-02-19 12:59 | RAD ---
HISTORY: r/o fluid overload COMPARISON: Comparison made with prior study 02/16/2017 FINDINGS: LUNGS: Re- demonstrated are diffuse bilateral infiltrates likely representing pulmonary vascular congestion and alveolar-type infiltrates. Consolidation changes left upper lobe remain somewhat masslike in appearance with apparent postoperative changes that include scarring/fibrosis as well as metallic clips and suture radiopaque sutures. Clinic correlation with surgical history recommended. Follow-up CT scan of the chest may be prudent. No change endovascular stent left subclavian and axillary region. PLEURA: Suspect bilateral effusions. CARDIOVASCULAR: Sternotomy wires and CABG clips. Cardiomegaly. OSSEOUS STRUCTURES: Previously noted deformity of the right humeral and mid right humerus not appreciated on this exam. VISUALIZED UPPER ABDOMEN: Normal. OTHER FINDINGS: None. IMPRESSION: Re- demonstrated are diffuse bilateral infiltrates likely representing pulmonary vascular congestion and alveolar-type infiltrates. Consolidation changes left upper lobe remain somewhat masslike in appearance with apparent postoperative changes that include scarring/fibrosis as well as metallic clips and suture radiopaque sutures. Clinic correlation with surgical history recommended. Follow-up CT scan of the chest may be prudent.
--- NOTE | 2017-02-19 14:32 | CP.PCM.CON ---
History of Present Illness - History of Present Illness History of Present Illness: Palliative consult Requested by Racquel KIRKPATRICK Reason: Goals of care discussion Patient is a 76 o female admitted from [facility] with hypoxia and lethargy. Upon arrival to ED O2Sat was WNL. CXR showed B/L pleural effusion. Lactate level was high at 4.8 on admission, dropped to 1.5 today. Meds: Doxycycline, Zithromax, Solu Medrol, Dogoxin, Midodrine, Cardarone This morning at 7 am BP dropped to 94/45, IV bolus given and Midodrone held off. BP brianda to 88/33 only. IV albumin administered and patient transferred to ICU for care. Labs today: WBC 72, Hb 9.5, blood sugar 472 PMH: ESRD on HD, HTN, DM, A Fib, CABG X 4 Soc, Hx: , lives at home, climbs [address] Fam Hx: Parents from natural causes Review of Systems - Review of Systems All systems: reviewed and no additional remarkable complaints except - EENT Eyes: absent: As Per HPI, Blind Spots, Blurred Vision, Change in Vision, Decreased Night Vision, Diplopia, Discharge, Dry Eye, Exophthalmos, Floaters, Irritation, Itchy Eyes, Loss of Peripheral Vision, Pain, Photophobia, Requires Corrective Lenses, Sees Flashes, Spots in Vision, Tunnel Vision, Other Visual Disturbances, Loss of Vision, Other Ears: absent: As Per HPI, Decreased Hearing, Ear Discharge, Ear Pain, Tinnitus, Abnormal Hearing, Disequilibrium, Dizziness, Other Nose/Mouth/Throat: absent: As Per HPI, Epistaxis, Nasal Congestion, Nasal Discharge, Nasal Obstruction, Nasal Trauma, Nose Pain, Post Nasal Drip, Sinus Pain, Sinus Pressure, Bleeding Gums, Change in Voice, Dental Pain, Dry Mouth, Dysphagia, Halitosis, Hoarsness, Lip Swelling, Mouth Lesions, Mouth Pain, Odynophagia, Sore Throat, Throat Swelling, Tongue Swelling, Facial Pain, Neck Pain, Neck Mass, Other - Breasts Breasts: absent: As Per HPI, Change in Shape, Mass, Pain, Nipple Discharge, Nipple Inversion, Skin Changes, Swelling, Other - Cardiovascular Cardiovascular: Dyspnea on Exertion, Rapid Heart Rate - Respiratory Respiratory: Dyspnea, Dyspnea on Exertion - Gastrointestinal Gastrointestinal: absent: As Per HPI, Abdominal Pain, Belching, Bloating, Change in Bowel Habits, Change in Stool Character, Coffee Ground Emesis, Constipation, Cramping, Diarrhea, Dyspepsia, Dysphagia, Early Satiety, Excessive Flatus, Fecal Incontinence, Heartburn, Hematemesis, Hematochezia, Loose Stools, Melena, Nausea, Odynophagia, Temesmus, Vomiting, Other - Genitourinary Genitourinary: Other Additional comments: HD - Reproductive: Female Reproductive:Female: Post Menopausal - Menstruation Menstruation: Post Menopausal - Musculoskeletal Musculoskeletal: absent: As Per HPI, Abnormal Gait, Arthralgias, Atrophy, Back Pain, Deformity, Joint Swelling, Limited Range of Motion, Loss of Height, Muscle Cramps, Muscle Weakness, Myalgias, Neck Pain, Numbness, Radiating Pain into Limb, Stiffness, Tingling, Other - Integumentary Integumentary: absent: As Per HPI, Acne, Alopecia, Bleeding Lesions, Change in Hair, Change in Nails, Change in Pigmentation, Changing Lesions, Dry Skin, Erythema, Furuncle, Hirsutism, Lesions, New Lesions, Non-Healing Lesions, Photosensitivity, Pruritus, Rash, Skin Pain, Skin Ulcer, Sores, Striae, Swelling , Unusual Bruising, Wounds, Jaundice, Other - Neurological Neurological: absent: As Per HPI, Abnormal Gait, Abnormal Hearing, Abnormal Movements, Abnormal Speech, Behavioral Changes, Burning Sensations, Confusion, Convulsions, Disequilibrium, Dizziness, Numbness, Focal Weakness, Frequent Falls , Headaches, Lack of Coordination, Loss of Vision, Memory Loss, Paresthesias, Radicular Pain, Restless Legs, Sensory Deficit, Syncope, Tingling, Tremor, Vertigo, Weakness, Other Visual Disturbances, Other - Psychiatric Psychiatric: absent: As Per HPI, Abnormal Sleep Pattern, Anhedonia, Anxiety, Auditory Hallucinations, Behavioral Changes, Change in Appetite, Change in Libido, Confusion, Depression, Difficulty Concentrating, Hallucinations, Homicidal Ideation, Hopelessness, Irritability, Memory Loss, Mood Swings, Panic Attacks, Paranoia, Suicidal Ideation, Visual Hallucinations, Tactile Hallucinations, Other - Endocrine Endocrine: absent: As Per HPI, Change in Body Appearance, Change in Libido, Cold Intolorance, Deepening of Voice, Excessive Sweating, Fatigue, Flushing, Heat Intolorance, Increase in Ring/Shoe/Hat Size, Palpitations, Polydipsia, Polyphagia, Polyuria, Other - Hematologic/Lymphatic Hematologic: absent: As Per HPI, Easy Bleeding, Easy Bruising, Lymphadenopathy, Other Past Patient History - Infectious Disease Hx of Infectious Diseases: None - Past Medical History & Family History Past Medical History?: Yes - Past Social History Smoking Status: Never Smoked - CARDIAC Hx Atrial Fibrillation: Yes Hx Cardia Arrhythmia: Yes Hx Hypercholesterolemia: Yes Hx Hypertension: Yes - PULMONARY Hx Respiratory Disorders: Yes Hx Pulmonary Edema: Yes - NEUROLOGICAL Hx Neurological Disorder: Yes Hx Dizziness: Yes - HEENT Hx HEENT Problems: Yes Hx Cataracts: Yes (Left and right cataract extraction in 2011) Hx Glaucoma: Yes - RENAL Hx Chronic Kidney Disease: Yes Date of Last Dialysis Treatment: 02/16/17 - ENDOCRINE/METABOLIC Hx Endocrine Disorders: Yes Hx Diabetes Mellitus Type 2: Yes - HEMATOLOGICAL/ONCOLOGICAL Hx Anemia: Yes - INTEGUMENTARY Hx Dermatological Problems: No - MUSCULOSKELETAL/RHEUMATOLOGICAL Hx Arthritis: Yes Hx Falls: No - GASTROINTESTINAL Hx Gastritis: Yes - GENITOURINARY/GYNECOLOGICAL Hx Genitourinary Disorders: No - PSYCHIATRIC Hx Substance Use: No - SURGICAL HISTORY Hx Coronary Artery Bypass Graft: Yes (CABG x 4 on 03/06/2009.) - ANESTHESIA Hx Anesthesia: Yes Hx Anesthesia Reactions: No Hx Malignant Hyperthermia: No Meds Allergies/Adverse Reactions: Allergies Allergy/AdvReac Type Severity Reaction Status Date / Time No Known Allergies Allergy Verified 02/27/16 12:51 - Medications Medications: Current Medications Acetaminophen (Tylenol 325mg Tab) 650 mg PO Q4 PRN PRN Reason: Pain, Mild (1-3) Albuterol/Ipratropium (Duoneb 3 Mg/0.5 Mg (3 Ml) Ud) 3 ml INH RQ6 [facility] Last Admin: 02/19/17 07:41 Dose: 3 ml Amiodarone HCl (Cordarone) 200 mg PO DAILY [facility] Last Admin: 02/19/17 10:49 Dose: Not Given Apixaban (Eliquis) 2.5 mg PO BID [facility] Last Admin: 02/19/17 10:49 Dose: Not Given Cilostazol (Pletal) 100 mg PO BID [facility] Last Admin: 02/19/17 10:49 Dose: Not Given Digoxin (Lanoxin) 0.125 mg PO ONCE ONE Stop: 02/19/17 20:01 Digoxin (Lanoxin) 0.125 mg PO ONCE ONE Stop: 02/20/17 04:01 Digoxin (Lanoxin) 0.125 mg PO DAILY@1800 [facility] Doxycycline Hyclate (Doryx) 100 mg PO Q12 [facility] Last Admin: 02/19/17 10:49 Dose: Not Given Epoetin Sj (Procrit) 10,000 unit IV MWF [facility] Famotidine (Pepcid) 20 mg PO DAILY [facility] Last Admin: 02/19/17 10:49 Dose: Not Given Azithromycin 500 mg/ Sodium (Chloride) 250 mls @ 250 mls/hr IVPB Q24H [facility] Last Admin: 02/18/17 22:07 Dose: 250 mls/hr Ceftriaxone Sodium 1 gm/ (Sodium Chloride) 100 mls @ 100 mls/hr IVPB Q24H [facility] Last Admin: 02/18/17 19:30 Dose: 100 mls/hr Insulin Aspart (Novolog) 0 unit SC ACHS [facility] PRN Reason: Protocol Last Admin: 02/19/17 12:36 Dose: Not Given Insulin Glargine (Lantus) 25 unit SC HS [facility] Last Admin: 02/18/17 22:05 Dose: 25 units Methylprednisolone (Solu-Medrol) 40 mg IVP Q8H [facility] Last Admin: 02/19/17 05:31 Dose: 40 mg Metoprolol Tartrate (Lopressor) 25 mg PO BID [facility] Last Admin: 02/19/17 10:49 Dose: Not Given Midodrine (Proamatine) 5 mg PO TID [facility] Last Admin: 02/19/17 10:23 Dose: Not Given Fluticasone/Salmeterol (Advair Diskus 250/50) 1 puff INH RBID [facility] Last Admin: 02/19/17 07:43 Dose: 1 puff Sevelamer Carbonate (Renvela) 800 mg PO TID [facility] Last Admin: 02/19/17 10:49 Dose: Not Given Silver Sulfadiazine (Silvadene 1% 20 Gm) 0 ea TOP QSHIFT [facility] Last Admin: 02/19/17 06:36 Dose: 1 applic Physical Exam - Constitutional Appears: In Acute Distress - Head Exam Head Exam: ATRAUMATIC, NORMAL INSPECTION, NORMOCEPHALIC - Eye Exam Eye Exam: EOMI, Normal appearance, PERRL Pupil Exam: NORMAL ACCOMODATION, PERRL - ENT Exam ENT Exam: Mucous Membranes Moist, Normal Exam - Neck Exam Neck exam: Positive for: Normal Inspection - Respiratory Exam Respiratory Exam: Accessory Muscle Use, Decreased Breath Sounds - Cardiovascular Exam Cardiovascular Exam: Tachycardia, Irregular Rhythm - GI/Abdominal Exam GI & Abdominal Exam: Normal Bowel Sounds, Soft - Rectal Exam Rectal Exam: Deferred - Extremities Exam Extremities exam: Positive for: pedal edema, pedal pulses present - Back Exam Back exam: NORMAL INSPECTION - Neurological Exam Neurological exam: Alert, Oriented x3 - Psychiatric Exam Psychiatric exam: Anxious, Normal Affect, Normal Mood - Skin Skin Exam: Normal Color, Warm Results - Vital Signs Recent Vital Signs: Last Vital Signs Temp 97.9 F 02/19/17 07:18 Pulse 113 H 02/19/17 10:50 Resp 20 02/19/17 07:18 BP 88/33 L 02/19/17 10:50 Pulse Ox 97 02/19/17 10:50 - Labs Result Diagrams: 02/18/17 11:19 02/18/17 11:19 Labs: Laboratory Results - last 24 hr 02/18/17 02/18/17 02/19/17 16:21 21:42 00:10 Puncture Site R rad pCO2 41 pO2 60 L HCO3 24.1 ABG pH 7.38 ABG Total CO2 25.6 ABG O2 Saturation 94.6 L ABG Base Excess -0.8 ABG Hemoglobin ABG Carboxyhemoglobin POC ABG HHb (Measured) ABG Methemoglobin Nadir Test Pos ABG Potassium 4.0 A-a O2 Difference 174.0 Respiratory Index 2.9 Hgb O2 Saturation Sodium 134.0 Chloride 97.0 L Glucose 474 H* D Lactate 4.8 H* Liter Flow 8.0 FiO2 40.0 Crit Value Called To Dr collier Crit Value Called By Sloane reynolds rt Crit Value Read Back Y Blood Gas Notified Time 28 POC Glucose (mg/dL) 230 H 464 H* Arterial Blood Potassium 4.0 02/19/17 02/19/17 02/19/17 04:13 06:06 07:08 Puncture Site R rad pCO2 48 H pO2 57 L HCO3 27.3 ABG pH 7.39 ABG Total CO2 30.6 H ABG O2 Saturation 92.5 L ABG Base Excess 3.3 H ABG Hemoglobin ABG Carboxyhemoglobin POC ABG HHb (Measured) ABG Methemoglobin Nadir Test Pos ABG Potassium 4.4 A-a O2 Difference 168.0 Respiratory Index 2.9 Hgb O2 Saturation Sodium 134.0 Chloride 97.0 L Glucose 402 H* Lactate 1.5 Liter Flow 8.0 FiO2 40.0 Crit Value Called To Dr collier Crit Value Called By Sloane reynolds rt Crit Value Read Back Y Blood Gas Notified Time 419 POC Glucose (mg/dL) 370 H 391 H Arterial Blood Potassium 4.4 02/19/17 02/19/17 11:41 11:45 Puncture Site Rr pCO2 48 H pO2 73 L HCO3 25.3 ABG pH 7.35 ABG Total CO2 28.0 ABG O2 Saturation 96.9 ABG Base Excess 0.5 ABG Hemoglobin 9.6 L ABG Carboxyhemoglobin 2.2 H POC ABG HHb (Measured) 3.0 ABG Methemoglobin 1.3 Nadir Test Pos ABG Potassium A-a O2 Difference 152.0 Respiratory Index 2.1 Hgb O2 Saturation 93.4 L Sodium Chloride Glucose Lactate Liter Flow FiO2 40.0 Crit Value Called To Crit Value Called By Crit Value Read Back Blood Gas Notified Time POC Glucose (mg/dL) 472 H* Arterial Blood Potassium Assessment & Plan - Assessment and Plan (Free Text) Assessment: Palliative consult Code status Full Code, there is no advance directive on chart, PPS 20% I reviewed medical records, all diagnostic studies, examined and interviewed patient in the bed. Patient is alert, oriented X 3, in bed with Venti mask on , with affect that is anxious. at bed side. Patient speaks limited Montserratian, communicates better. Nurse Crystal was called for assistance with translation. Breath sounds diminished, moist cough present. HR 106, rhythm ST. BP still in low 90s. Patient denies SOB. Repeated CXR showed pulmonary congestion and B/L infiltrates. Abdomen is flat and soft. There is pedal edema and discoloration to LEs. Patient is HD dependent since 2004. As per , patient was able to do some house work until recently, including mapping. There are 18 steps patient needs to climb every time she went to HD. reports patient was doing it with ease. We discussed that due to her chronic cardiac condition, patient should avoid strenuous activities. agreed and reported that they were in process of looking for apartment [place] the [place]. Code status discussed. I was not sure how much patient and her understood even though they said they did. With help from Crystal RICHEY translating in [facility], I explained importance of having wishes for the end of life care documented in case of emergency and patient loses ability to make decisions. was answering for the patient saying that it was matter of surviving and he would ant all aggressive measures for his to be applied. Patient looked at him with agreement. Impression * Patient is mild respiratory and cardiac distress on supplemental O2 and IV Albumin * Patient is still hypotensive * Patient' swishes for the end of life care are not documented * My impression is that neither the patient nor the have cognitive ability to understand the meaning og end of life care. Despite detailed explanation, feels that deciding on Code status would stop all treatments, and he sees aggressive measures as way of surviving the disease. The patient seems to feel the same way Suggestion * Symptoms management * Provide all measures to support life * Discussion on Code status to be continued based on progress patient makes, and will be most likely family meeting with patient's children present.
--- NOTE | 2017-02-19 14:58 | CP.PCM.PN ---
Subjective - Date & Time of Evaluation Date of Evaluation: 02/19/17 Time of Evaluation: 11:00 - Subjective Subjective: clinically same Objective - Vital Signs/Intake and Output Vital Signs (last 24 hours): Temp Pulse Resp BP Pulse Ox 97.9 F 113 H 20 88/33 L 97 02/19/17 07:18 02/19/17 10:50 02/19/17 07:18 02/19/17 10:50 02/19/17 10:50 - Medications Medications: Current Medications Acetaminophen (Tylenol 325mg Tab) 650 mg PO Q4 PRN PRN Reason: Pain, Mild (1-3) Albuterol/Ipratropium (Duoneb 3 Mg/0.5 Mg (3 Ml) Ud) 3 ml INH RQ6 [facility] Last Admin: 02/19/17 13:55 Dose: Not Given Amiodarone HCl (Cordarone) 200 mg PO DAILY [facility] Last Admin: 02/19/17 10:49 Dose: Not Given Apixaban (Eliquis) 2.5 mg PO BID [facility] Last Admin: 02/19/17 10:49 Dose: Not Given Cilostazol (Pletal) 100 mg PO BID [facility] Last Admin: 02/19/17 10:49 Dose: Not Given Digoxin (Lanoxin) 0.125 mg PO ONCE ONE Stop: 02/19/17 20:01 Digoxin (Lanoxin) 0.125 mg PO ONCE ONE Stop: 02/20/17 04:01 Digoxin (Lanoxin) 0.125 mg PO DAILY@1800 [facility] Doxycycline Hyclate (Doryx) 100 mg PO Q12 [facility] Last Admin: 02/19/17 10:49 Dose: Not Given Epoetin Sj (Procrit) 10,000 unit IV MWF [facility] Famotidine (Pepcid) 20 mg PO DAILY [facility] Last Admin: 02/19/17 10:49 Dose: Not Given Azithromycin 500 mg/ Sodium (Chloride) 250 mls @ 250 mls/hr IVPB Q24H [facility] Last Admin: 02/18/17 22:07 Dose: 250 mls/hr Ceftriaxone Sodium 1 gm/ (Sodium Chloride) 100 mls @ 100 mls/hr IVPB Q24H [facility] Last Admin: 02/18/17 19:30 Dose: 100 mls/hr Insulin Aspart (Novolog) 0 unit SC ACHS [facility] PRN Reason: Protocol Last Admin: 02/19/17 12:36 Dose: Not Given Insulin Glargine (Lantus) 25 unit SC HS [facility] Last Admin: 02/18/17 22:05 Dose: 25 units Methylprednisolone (Solu-Medrol) 40 mg IVP Q8H [facility] Last Admin: 02/19/17 05:31 Dose: 40 mg Metoprolol Tartrate (Lopressor) 25 mg PO BID [facility] Last Admin: 02/19/17 10:49 Dose: Not Given Midodrine (Proamatine) 5 mg PO TID [facility] Last Admin: 02/19/17 10:23 Dose: Not Given Fluticasone/Salmeterol (Advair Diskus 250/50) 1 puff INH RBID [facility] Last Admin: 02/19/17 07:43 Dose: 1 puff Sevelamer Carbonate (Renvela) 800 mg PO TID [facility] Last Admin: 02/19/17 10:49 Dose: Not Given Silver Sulfadiazine (Silvadene 1% 20 Gm) 0 ea TOP QSHIFT [facility] Last Admin: 02/19/17 06:36 Dose: 1 applic - Labs Labs: 02/18/17 11:19 02/18/17 11:19 - Constitutional Appears: Well - Head Exam Head Exam: ATRAUMATIC, NORMAL INSPECTION, NORMOCEPHALIC - Eye Exam Eye Exam: EOMI, Normal appearance, PERRL Pupil Exam: NORMAL ACCOMODATION, PERRL - ENT Exam ENT Exam: Mucous Membranes Moist, Normal Exam - Neck Exam Neck Exam: Full ROM, Normal Inspection. absent: Lymphadenopathy - Respiratory Exam Respiratory Exam: Decreased Breath Sounds - Cardiovascular Exam Cardiovascular Exam: REGULAR RHYTHM, +S1, +S2 - GI/Abdominal Exam GI & Abdominal Exam: Soft, Diminished Bowel Sounds - Rectal Exam Rectal Exam: Deferred
--- NOTE | 2017-02-19 16:14 | CP.PCM.PN ---
Subjective - Date & Time of Evaluation Date of Evaluation: 02/19/17 Objective - Vital Signs/Intake and Output Vital Signs (last 24 hours): Temp Pulse Resp BP Pulse Ox 97.9 F 113 H 20 88/33 L 97 02/19/17 07:18 02/19/17 10:50 02/19/17 07:18 02/19/17 10:50 02/19/17 10:50 - Medications Medications: Current Medications Acetaminophen (Tylenol 325mg Tab) 650 mg PO Q4 PRN PRN Reason: Pain, Mild (1-3) Albuterol/Ipratropium (Duoneb 3 Mg/0.5 Mg (3 Ml) Ud) 3 ml INH RQ6 [facility] Last Admin: 02/19/17 13:55 Dose: Not Given Amiodarone HCl (Cordarone) 200 mg PO DAILY [facility] Last Admin: 02/19/17 10:49 Dose: Not Given Apixaban (Eliquis) 2.5 mg PO BID [facility] Last Admin: 02/19/17 10:49 Dose: Not Given Cilostazol (Pletal) 100 mg PO BID [facility] Last Admin: 02/19/17 10:49 Dose: Not Given Digoxin (Lanoxin) 0.125 mg PO ONCE ONE Stop: 02/19/17 20:01 Digoxin (Lanoxin) 0.125 mg PO ONCE ONE Stop: 02/20/17 04:01 Digoxin (Lanoxin) 0.125 mg PO DAILY@1800 [facility] Doxycycline Hyclate (Doryx) 100 mg PO Q12 [facility] Last Admin: 02/19/17 10:49 Dose: Not Given Epoetin Sj (Procrit) 10,000 unit IV MWF [facility] Famotidine (Pepcid) 20 mg PO DAILY [facility] Last Admin: 02/19/17 10:49 Dose: Not Given Azithromycin 500 mg/ Sodium (Chloride) 250 mls @ 250 mls/hr IVPB Q24H [facility] Last Admin: 02/18/17 22:07 Dose: 250 mls/hr Ceftriaxone Sodium 1 gm/ (Sodium Chloride) 100 mls @ 100 mls/hr IVPB Q24H [facility] Last Admin: 02/18/17 19:30 Dose: 100 mls/hr Insulin Aspart (Novolog) 0 unit SC ACHS [facility] PRN Reason: Protocol Last Admin: 02/19/17 12:36 Dose: Not Given Insulin Glargine (Lantus) 25 unit SC HS [facility] Last Admin: 02/18/17 22:05 Dose: 25 units Methylprednisolone (Solu-Medrol) 40 mg IVP Q12H [facility] Metoprolol Tartrate (Lopressor) 25 mg PO BID [facility] Last Admin: 02/19/17 10:49 Dose: Not Given Midodrine (Proamatine) 5 mg PO TID [facility] Last Admin: 02/19/17 10:23 Dose: Not Given Fluticasone/Salmeterol (Advair Diskus 250/50) 1 puff INH RBID [facility] Last Admin: 02/19/17 07:43 Dose: 1 puff Sevelamer Carbonate (Renvela) 800 mg PO TID [facility] Last Admin: 02/19/17 10:49 Dose: Not Given Silver Sulfadiazine (Silvadene 1% 20 Gm) 0 ea TOP QSHIFT [facility] Last Admin: 02/19/17 06:36 Dose: 1 applic - Labs Labs: 02/18/17 11:19 02/18/17 11:19
[2017-02-19] MEDS ORDERED: (Novolog) Insulin Aspart, Recombinant 100 u/ml 10 ml vial SC SCH (16:30)
[2017-02-19] MEDS ORDERED: (Lantus) Insulin Glargine, Recombinant SC SCH (16:30)
[2017-02-19] MEDS: Albumin Human 25% (12.5 gm/50 ml) IV SCH ×3 (17:00→18:30)
[2017-02-19] MEDS: (Lantus) Insulin Glargine, Recombinant SC SCH (17:26)
[2017-02-19] MEDS ORDERED: Digoxin 125 mcg (0.125 mg) Tab PO ONE (20:00)
[2017-02-19] MEDS: Azithromycin 500 MG in Sodium Chloride 0.9% 250 ML IVPB SCH (21:26)
[2017-02-20] MEDS: (Novolog) Insulin Aspart, Recombinant 100 u/ml 10 ml vial SC SCH ×5 (00:19→21:10)
[2017-02-20] MEDS: Albuterol-Ipratrop 3 mg / 0.5 (3 ml) UD INH SCH ×4 (01:52→20:27)
[2017-02-20] MEDS ORDERED: Digoxin 125 mcg (0.125 mg) Tab PO ONE (04:00)
[2017-02-20] MEDS: Silver Sulfadiazine 1% Cream (20 gm) TOP SCH ×6 (06:55→21:14)
[2017-02-20] MEDS: (Lantus) Insulin Glargine, Recombinant SC SCH ×2 (06:55→17:48)
[2017-02-20 06:56] LABS: BASO % 0.3 % (0.0-2.0); HEMOGLOBIN 9.4 g/dL (11.0-16.0); LYMPH # 0.2 K/uL (1.0-4.3); LYMPH % 1.7 % (20.0-40.0); MEAN CORPUSCULAR HGB CONC 31.7 g/dL (33.0-37.0); MEAN PLATELET VOLUME 8.2 fL (7.2-11.7); MONO # 0.2 K/uL (0.0-0.8); MONO % 2.3 % (0.0-10.0); NEUT # 9.1 K/uL (1.8-7.0); NEUT % 95.7 % (50.0-75.0); NRBC % 0.1 % (0.0-2.0); PLATELET COUNT 205 K/uL (130-400); RBC 2.94 Mil/uL (3.80-5.20); RED CELL DISTRIBUTION WIDTH 16.8 % (11.5-14.5); WHITE BLOOD COUNT 9.5 K/uL (4.8-10.8)
[2017-02-20 06:59] LABS: ALBUMIN 2.7 g/dL (3.5-5.0)
[2017-02-20 07:02] LABS: ALB/GLOB RATIO 1.4 (1.0-2.1)
[2017-02-20 07:03] LABS: CALCIUM 6.8 mg/dl (8.6-10.4); MAGNESIUM 1.5 mg/dL (1.6-2.3)
[2017-02-20] MEDS: Fluticasone-Salmeterol 250-50mcg Diskus INH SCH ×2 (07:49→20:27)
--- NOTE | 2017-02-20 07:50 | CP.PCM.PN ---
Subjective - Date & Time of Evaluation Date of Evaluation: 02/20/17 Time of Evaluation: 09:00 - Subjective Subjective: Cardiology progress note for Dr. Seo Patient seen and examined at bedside. Patient was sitting up in bed and resting comfortably on NC. Nursing reported no acute events overnight. Patient HR continues to be tachycardic. She deneis acute events of chest pain, SOB, abd pain, nausae, vomiting, pain/swelling in her legs bilaterally. She is to be transferred to TELE floor today as per ICU team. Objective - Vital Signs/Intake and Output Vital Signs (last 24 hours): Temp Pulse Resp BP Pulse Ox 98.3 F 81 15 110/59 L 98 02/19/17 20:00 02/20/17 07:00 02/20/17 07:00 02/20/17 06:52 02/20/17 07:00 Intake and Output: 02/20/17 02/20/17 06:59 18:59 Intake Total 800 0 Balance 800 0 - Medications Medications: Current Medications Acetaminophen (Tylenol 325mg Tab) 650 mg PO Q4 PRN PRN Reason: Pain, Mild (1-3) Albuterol/Ipratropium (Duoneb 3 Mg/0.5 Mg (3 Ml) Ud) 3 ml INH RQ6 [facility] Last Admin: 02/20/17 07:49 Dose: 3 ml Amiodarone HCl (Cordarone) 200 mg PO DAILY [facility] Last Admin: 02/19/17 10:49 Dose: Not Given Apixaban (Eliquis) 2.5 mg PO BID [facility] Last Admin: 02/19/17 17:26 Dose: 2.5 mg Cilostazol (Pletal) 100 mg PO BID [facility] Last Admin: 02/19/17 17:25 Dose: 100 mg Digoxin (Lanoxin) 0.125 mg PO DAILY@1800 [facility] Doxycycline Hyclate (Doryx) 100 mg PO Q12 [facility] Last Admin: 02/19/17 21:26 Dose: 100 mg Epoetin Sj (Procrit) 10,000 unit IV MWF [facility] Famotidine (Pepcid) 20 mg PO DAILY [facility] Last Admin: 02/19/17 10:49 Dose: Not Given Azithromycin 500 mg/ Sodium (Chloride) 250 mls @ 250 mls/hr IVPB Q24H [facility] Last Admin: 02/19/17 21:26 Dose: 250 mls/hr Ceftriaxone Sodium 1 gm/ (Sodium Chloride) 100 mls @ 100 mls/hr IVPB Q24H [facility] Last Admin: 02/19/17 20:20 Dose: 100 mls/hr Insulin Aspart (Novolog) 0 unit SC Q6 [facility] PRN Reason: Protocol Last Admin: 02/20/17 06:54 Dose: 8 unit Insulin Glargine (Lantus) 25 unit SC Q12H [facility] Last Admin: 02/20/17 06:55 Dose: 25 units Methylprednisolone (Solu-Medrol) 40 mg IVP Q12 [facility] Last Admin: 02/19/17 21:29 Dose: 40 mg Metoprolol Tartrate (Lopressor) 25 mg PO BID [facility] Last Admin: 02/19/17 17:17 Dose: Not Given Midodrine (Proamatine) 5 mg PO TID [facility] Last Admin: 02/19/17 17:25 Dose: 5 mg Potassium Chloride (Klor-Con 10) 40 meq PO BRK [facility] Fluticasone/Salmeterol (Advair Diskus 250/50) 1 puff INH RBID [facility] Last Admin: 02/20/17 07:49 Dose: 1 puff Sevelamer Carbonate (Renvela) 800 mg PO TID [facility] Last Admin: 02/19/17 17:25 Dose: 800 mg Silver Sulfadiazine (Silvadene 1% 20 Gm) 0 ea TOP QSHIFT [facility] Last Admin: 02/20/17 06:55 Dose: 1 applic - Labs Labs: 02/20/17 06:47 02/20/17 06:47 - Constitutional Appears: No Acute Distress, Chronically Ill - Head Exam Head Exam: ATRAUMATIC, NORMOCEPHALIC - Eye Exam Eye Exam: EOMI, Normal appearance. absent: Conjunctival injection, Scleral icterus - ENT Exam ENT Exam: Mucous Membranes Dry - Respiratory Exam Respiratory Exam: NORMAL BREATHING PATTERN. absent: Accessory Muscle Use, Respiratory Distress - Cardiovascular Exam Cardiovascular Exam: Tachycardia, Irregular Rhythm, +S1, +S2 - GI/Abdominal Exam GI & Abdominal Exam: Soft, Normal Bowel Sounds. absent: Tenderness - Extremities Exam Extremities Exam: Normal Inspection. absent: Pedal Edema, Tenderness - Neurological Exam Neurological Exam: Alert, Awake, Oriented x3 - Psychiatric Exam Psychiatric exam: Flat Affect - Skin Skin Exam: Dry, Intact Assessment and Plan - Assessment and Plan (Free Text) Assessment: 76 year old female PMHx of A-fib on eliquis, CAD, ESRD on HD MWF, HTN, DM, and HLD presented to ER with increased dyspnea in need of emergent dialysis on . Cardiology consulted for A-fib Plan: -Patient for transfer to [facility] this AM -Known hx of Afib with CHADS2-VASC score : 7 points -EKG 02/18: Atrial fibrillation with possible RVH and ST and T wave abnl; HR 99bpm -EKG 02/16: Atrial fibrillation with possible RVH and nonspecific ST and T wave abnl; HR 84bpm -Patient has hx of CAD s/p PCI and CABG -Cardiac cath on last admission 02/11 showed L Main: proximal 30% LAD: Mid 100% but MORILLO to LAD patent L Cx:Proximal 90% but SVG to OM1 and OM2 patent RCA: Ostial 50% with good RYAN 3 flow EF: 60%, EDP 19, No AV gradient Grafts are patent -f/u Echo Echo 02/09: Normal overall LV systolic function with paradoxical septal motion LA volume index is markedly dilated. RA size severely dilated. Systolic function is severely reduced. RV is severely dilated. Severe pulmonary HTN. -Lipid panel on last admission WNL TG 46 Cholesterol 81 LDL < 30 HDL 53 -Patient started on digoxin 02/20 at 0.125mg po daily f/u digoxin level on 02/21 -Amiodarone 200mg po daily -Eliquis 2.5mg po bid -Pletal 100mg po bid -Midodrine 5mg po tid Case discussed with Dr. Gabbi Trevino PGY2
[2017-02-20] MEDS ORDERED: Potassium Chloride 20 mEq ER Tab PO ONE ×2 (08:00→10:49)
[2017-02-20] MEDS ORDERED: Potassium Chloride 10 mEq ER Tab PO SCH (08:00)
[2017-02-20 08:40] LABS: BANDS 1 % (0-2); LYMPHOCYTE 1 % (20-40); MONOCYTE 1 % (0-10); NEUTROPHIL 97 % (50-75); TOTAL CELLS COUNTED 100
[2017-02-20 08:41] LABS: ANISOCYTOSIS SLIGHT; HYPOCHROMIC SLIGHT; PLATELET ESTIMATE NORMAL (NORMAL)
[2017-02-20 08:42] LABS: OVALOCYTES SLIGHT; POLYCHROMIC SLIGHT; TEARDROP CELLS SLIGHT
--- NOTE | 2017-02-20 09:43 | CP.PCM.PN ---
Subjective - Date & Time of Evaluation Date of Evaluation: 02/20/17 Time of Evaluation: 11:00 - Subjective Subjective: clinically same Objective - Vital Signs/Intake and Output Vital Signs (last 24 hours): Temp Pulse Resp BP Pulse Ox 97.7 F 109 H 17 127/64 95 02/20/17 08:00 02/20/17 08:30 02/20/17 08:30 02/20/17 07:52 02/20/17 08:30 Intake and Output: 02/20/17 02/20/17 06:59 18:59 Intake Total 800 0 Balance 800 0 - Medications Medications: Current Medications Acetaminophen (Tylenol 325mg Tab) 650 mg PO Q4 PRN PRN Reason: Pain, Mild (1-3) Albuterol/Ipratropium (Duoneb 3 Mg/0.5 Mg (3 Ml) Ud) 3 ml INH RQ6 [facility] Last Admin: 02/20/17 07:49 Dose: 3 ml Amiodarone HCl (Cordarone) 200 mg PO DAILY [facility] Last Admin: 02/19/17 10:49 Dose: Not Given Apixaban (Eliquis) 2.5 mg PO BID [facility] Last Admin: 02/19/17 17:26 Dose: 2.5 mg Cilostazol (Pletal) 100 mg PO BID [facility] Last Admin: 02/19/17 17:25 Dose: 100 mg Digoxin (Lanoxin) 0.125 mg PO DAILY@1800 [facility] Doxycycline Hyclate (Doryx) 100 mg PO Q12 [facility] Last Admin: 02/19/17 21:26 Dose: 100 mg Epoetin Sj (Procrit) 10,000 unit IV MWF [facility] Famotidine (Pepcid) 20 mg PO DAILY [facility] Last Admin: 02/19/17 10:49 Dose: Not Given Azithromycin 500 mg/ Sodium (Chloride) 250 mls @ 250 mls/hr IVPB Q24H [facility] Last Admin: 02/19/17 21:26 Dose: 250 mls/hr Ceftriaxone Sodium 1 gm/ (Sodium Chloride) 100 mls @ 100 mls/hr IVPB Q24H [facility] Last Admin: 02/19/17 20:20 Dose: 100 mls/hr Insulin Aspart (Novolog) 0 unit SC Q6 [facility] PRN Reason: Protocol Last Admin: 02/20/17 06:54 Dose: 8 unit Insulin Glargine (Lantus) 25 unit SC Q12H [facility] Last Admin: 02/20/17 06:55 Dose: 25 units Methylprednisolone (Solu-Medrol) 40 mg IVP Q12 [facility] Last Admin: 02/19/17 21:29 Dose: 40 mg Metoprolol Tartrate (Lopressor) 25 mg PO BID [facility] Last Admin: 02/19/17 17:17 Dose: Not Given Midodrine (Proamatine) 5 mg PO TID [facility] Last Admin: 02/19/17 17:25 Dose: 5 mg Fluticasone/Salmeterol (Advair Diskus 250/50) 1 puff INH RBID [facility] Last Admin: 02/20/17 07:49 Dose: 1 puff Sevelamer Carbonate (Renvela) 800 mg PO TID [facility] Last Admin: 02/19/17 17:25 Dose: 800 mg Silver Sulfadiazine (Silvadene 1% 20 Gm) 0 ea TOP QSHIFT [facility] Last Admin: 02/20/17 06:55 Dose: 1 applic - Labs Labs: 02/20/17 06:47 02/20/17 06:47 - Constitutional Appears: Well - Head Exam Head Exam: ATRAUMATIC, NORMAL INSPECTION, NORMOCEPHALIC - Eye Exam Eye Exam: EOMI, Normal appearance, PERRL Pupil Exam: NORMAL ACCOMODATION, PERRL - ENT Exam ENT Exam: Mucous Membranes Moist, Normal Exam - Neck Exam Neck Exam: Full ROM, Normal Inspection. absent: Lymphadenopathy - Respiratory Exam Respiratory Exam: Decreased Breath Sounds - Cardiovascular Exam Cardiovascular Exam: REGULAR RHYTHM, +S1, +S2 - GI/Abdominal Exam GI & Abdominal Exam: Soft, Diminished Bowel Sounds - Rectal Exam Rectal Exam: Deferred
[2017-02-20] MEDS: Cilostazol 100 mg Tab UD PO SCH ×2 (10:34→17:48)
[2017-02-20] MEDS: MethylPREDNISolone 40 mg Vial IVP SCH ×2 (10:37→21:19)
[2017-02-20] MEDS ORDERED: Magnesium Sulfate 1 gm in D5W 1 GM/100 ML BAG IVPB ONE (11:00)
[2017-02-20] MEDS: Epoetin Alfa 10,000 unit/ml Dialysis IV SCH (11:00)
--- NOTE | 2017-02-20 11:36 | RAD ---
HISTORY: assess pulmonary edema COMPARISON: 02/19/2017 FINDINGS: LUNGS: Patchy opacities at lung bases, improved compared prior examination. PLEURA: No significant pleural effusion identified, no pneumothorax apparent. CARDIOVASCULAR: Cardiomegaly. Sternotomy wires. CABG. No significant congestive change. OSSEOUS STRUCTURES: No significant abnormalities. VISUALIZED UPPER ABDOMEN: Normal. OTHER FINDINGS: None. IMPRESSION: Improved bilateral pulmonary infiltrates. No pleural effusion. Cardiomegaly. CABG. No significant congestive change
--- NOTE | 2017-02-20 11:47 | CP.CCUPN ---
<Carolee Martinez - Last Filed: 02/20/17 11:45> CCU Subjective - Physician Review Subjective (Free Text): 02/20/17 11:45 Patient was seen and examined at bedside in the AM. Patient stated that her right thigh felt warm but no other complaints. Patient states she is coughing but is not coughing up the phlegm. Not able to get a full review of systems because the patient stated it was difficult for her to speak. CCU Objective - Vital Signs / Intake & Output Vital Signs (Last 4 hours): Vital Signs Temp Pulse Resp BP Pulse Ox 02/20/17 11:34 101 H 13 103/62 96 02/20/17 11:30 100 H 15 97 02/20/17 11:20 109 H 14 97 02/20/17 11:19 108 H 13 98/62 L 96 02/20/17 11:10 94 H 15 97 02/20/17 11:04 105 H 13 97/58 L 97 02/20/17 11:00 99 H 20 96 02/20/17 10:50 111 H 15 97 02/20/17 10:49 95 H 13 91/49 L 98 02/20/17 10:40 100 H 22 97 02/20/17 10:34 94 H 17 86/53 L 97 02/20/17 10:31 102 H 13 76/52 L 95 02/20/17 10:30 102 H 13 97 02/20/17 10:20 110 H 21 97 02/20/17 10:11 97 H 17 85/52 L 96 02/20/17 10:10 103 H 16 97 02/20/17 10:00 117 H 19 97 02/20/17 09:51 107 H 13 89/50 L 96 02/20/17 09:50 115 H 15 97 02/20/17 09:49 100 H 20 95/50 L 96 02/20/17 09:40 107 H 18 97 02/20/17 09:31 105 H 15 100/48 L 97 02/20/17 09:30 112 H 15 99 02/20/17 09:20 108 H 12 96 02/20/17 09:12 109 H 16 98/49 L 99 02/20/17 09:10 99 H 13 98 02/20/17 09:00 100 H 12 98 02/20/17 08:51 100 H 13 105/54 L 97 02/20/17 08:50 107 H 15 98 02/20/17 08:40 110 H 15 99 02/20/17 08:31 107 H 19 114/62 92 L 02/20/17 08:30 109 H 17 95 02/20/17 08:20 109 H 22 93 L 02/20/17 08:10 108 H 18 97 02/20/17 08:00 97.7 F 106 H 16 91 L 02/20/17 07:52 91 H 17 127/64 100 02/20/17 07:50 88 20 100 Intake and Output (Last 8hrs): Intake & Output 02/19/17 02/20/17 02/20/17 22:59 06:59 14:59 Intake Total 1200 0 320 Balance 1200 0 320 Intake: Intake, IV Amount 350 Right Hand 350 Oral 850 0 320 Other: # Bowel Movements 0 0 0 - Physical Exam Head: Positive for: Normocephalic Extroacular Muscles: Positive for: EOMI Conjunctiva: Positive for: Normal Respiratory/Chest: Positive for: Good Air Exchange. Negative for: Respiratory Distress, Accessory Muscle Use, Wheezes Cardiovascular: Positive for: Normal S1, S2, Irregular Rhythm (atrial fibrillation). Negative for: Regular Rate and Rhythm Abdomen: Positive for: Normal Bowel Sounds. Negative for: Tenderness, Distention Upper Extremity: Positive for: Normal Inspection. Negative for: Edema Lower Extremity: Positive for: Normal Inspection. Negative for: Edema, CALF TENDERNESS, Tenderness Skin: Positive for: Warm, Dry, Normal Color. Negative for: Rashes Psychiatric: Positive for: Alert, Oriented x 3 - Medications Active Medications: Active Medications Generic Name Dose Route Start Last Admin Trade Name Freq PRN Reason Stop Dose Admin Acetaminophen 650 mg 02/16/17 21:30 Tylenol 325mg Tab PO Q4 PRN Pain, Mild (1-3) Albuterol/Ipratropium 3 ml 02/17/17 02:00 02/20/17 07:49 Duoneb 3 Mg/0.5 Mg (3 Ml) Ud INH 3 ml RQ6 DON Administration Amiodarone HCl 200 mg 02/18/17 10:00 02/20/17 10:34 Cordarone PO 200 mg DAILY DON Administration Apixaban 2.5 mg 02/17/17 10:00 02/20/17 10:34 Eliquis PO 2.5 mg BID DON Administration Cilostazol 100 mg 02/17/17 10:00 02/20/17 10:34 Pletal PO 100 mg BID DON Administration Digoxin 0.125 mg 02/20/17 18:00 Lanoxin PO DAILY@1800 DON Doxycycline Hyclate 100 mg 02/16/17 22:00 02/20/17 10:34 Doryx PO 100 mg Q12 DON Administration Epoetin Sj 10,000 unit 02/20/17 09:00 Procrit IV MWF DON Famotidine 20 mg 02/17/17 10:00 02/20/17 10:32 Pepcid PO 20 mg DAILY DON Administration Azithromycin 500 mg/ Sodium 250 mls @ 250 mls/hr 02/18/17 22:00 02/19/17 21: 26 Chloride IVPB 250 mls/hr Q24H DON Administration Ceftriaxone Sodium 1 gm/ 100 mls @ 100 mls/hr 02/18/17 20:00 02/19/17 20:20 Sodium Chloride IVPB 100 mls/hr Q24H DON Administration Magnesium Sulfate/Dextrose 1 gm in 100 mls @ 100 mls/hr 02/20/17 11:00 11:09 Magnesium Sulfate 1 Gm/100 Ml D5w IVPB 02/20/17 11:59 100 mls/hr ONCE ONE Administration Insulin Aspart 0 unit 02/19/17 18:00 02/20/17 06:54 Novolog SC 8 unit Q6 DON Administration Protocol Insulin Glargine 25 unit 02/19/17 18:00 02/20/17 06:55 Lantus SC 25 units Q12H DON Administration Methylprednisolone 40 mg 02/19/17 22:00 02/20/17 10:37 Solu-Medrol IVP 40 mg Q12 DON Administration Midodrine 5 mg 02/17/17 10:00 02/20/17 10:36 Proamatine PO 5 mg TID DON Administration Fluticasone/Salmeterol 1 puff 02/16/17 22:30 02/20/17 07:49 Advair Diskus 250/50 INH 1 puff RBID DON Administration Sevelamer Carbonate 800 mg 02/17/17 10:00 02/20/17 10:34 Renvela PO 800 mg TID DON Administration Silver Sulfadiazine 0 ea 02/16/17 22:00 02/20/17 06:55 Silvadene 1% 20 Gm TOP 1 [facility] Administration - Patient Studies Lab Studies: Lab Studies 02/20/17 02/20/17 02/20/17 Range/Units 06:47 06:47 06:44 WBC 9.5 (4.8-10.8) K/uL RBC 2.94 L (3.80-5.20) Mil/uL Hgb 9.4 L (11.0-16.0) g/dL Hct 29.6 L (34.0-47.0) % MCV 101.0 H (81.0-99.0) fL MCH 32.0 H (27.0-31.0) pg MCHC 31.7 L (33.0-37.0) g/dL RDW 16.8 H (11.5-14.5) % Plt Count 205 (130-400) K/uL MPV 8.2 (7.2-11.7) fL Neut % (Auto) 95.7 H (50.0-75.0) % Lymph % (Auto) 1.7 L (20.0-40.0) % Gordon % (Auto) 2.3 (0.0-10.0) % Eos % (Auto) 0.0 (0.0-4.0) % Baso % (Auto) 0.3 (0.0-2.0) % Neut # 9.1 H (1.8-7.0) K/uL Lymph # 0.2 L (1.0-4.3) K/uL Gordon # 0.2 (0.0-0.8) K/uL Eos # 0.0 (0.0-0.7) K/uL Baso # 0.0 (0.0-0.2) K/uL Neutrophils % (Manual) 97 H (50-75) % Band Neutrophils % 1 (0-2) % Lymphocytes % (Manual) 1 L (20-40) % Monocytes % (Manual) 1 (0-10) % Platelet Estimate Normal (NORMAL) Polychromasia Slight Hypochromasia (manual) Slight Anisocytosis (manual) Slight Macrocytosis (manual) Moderate Tear Drop Cells Slight Ovalocytes Slight Puncture Site pCO2 (35-45) mm/Hg pO2 (80-100) mm/Hg HCO3 (21-28) mmol/L ABG pH (7.35-7.45) ABG Total CO2 (22-28) mmol/L ABG O2 Saturation (95-98) % ABG Base Excess (-2.0-3.0) mmol/L ABG Hemoglobin (11.7-17.4) g/dL ABG Carboxyhemoglobin (0.5-1.5) % POC ABG HHb (Measured) (0.0-5.0) % ABG Methemoglobin (0.0-3.0) % Nadir Test A-a O2 Difference mm/Hg Respiratory Index Hgb O2 Saturation (95.0-98.0) % FiO2 % Sodium 140 (132-148) mmol/L Potassium 3.1 L (3.6-5.2) mmol/L Chloride 105 (98-107) mmol/L Carbon Dioxide 21 L (22-30) mmol/L Anion Gap 17 (10-20) BUN 25 H (7-17) mg/dL Creatinine 1.8 H (0.7-1.2) MG/DL Est GFR ( Amer) 33 Est GFR (Non-Af Amer) 27 POC Glucose (mg/dL) 213 H (65-110) mg/dL Random Glucose 151 H (65-105) mg/dL Calcium 6.8 L (8.6-10.4) mg/dl Phosphorus 3.6 (2.5-4.5) mg/dL Magnesium 1.5 L (1.6-2.3) mg/dL Total Bilirubin 0.8 (0.2-1.3) mg/dL AST 21 (14-36) U/L ALT 62 H D (9-52) U/L Alkaline Phosphatase 58 (38-126) U/L Total Protein 4.6 L (6.3-8.3) g/dL Albumin 2.7 L D (3.5-5.0) g/dL Globulin 2.0 L (2.2-3.9) gm/dL Albumin/Globulin Ratio 1.4 (1.0-2.1) 02/20/17 02/19/17 02/19/17 Range/Units 00:19 21:25 15:58 WBC (4.8-10.8) K/uL RBC (3.80-5.20) Mil/uL Hgb (11.0-16.0) g/dL Hct (34.0-47.0) % MCV (81.0-99.0) fL MCH (27.0-31.0) pg MCHC (33.0-37.0) g/dL RDW (11.5-14.5) % Plt Count (130-400) K/uL MPV (7.2-11.7) fL Neut % (Auto) (50.0-75.0) % Lymph % (Auto) (20.0-40.0) % Gordon % (Auto) (0.0-10.0) % Eos % (Auto) (0.0-4.0) % Baso % (Auto) (0.0-2.0) % Neut # (1.8-7.0) K/uL Lymph # (1.0-4.3) K/uL Gordon # (0.0-0.8) K/uL Eos # (0.0-0.7) K/uL Baso # (0.0-0.2) K/uL Neutrophils % (Manual) (50-75) % Band Neutrophils % (0-2) % Lymphocytes % (Manual) (20-40) % Monocytes % (Manual) (0-10) % Platelet Estimate (NORMAL) Polychromasia Hypochromasia (manual) Anisocytosis (manual) Macrocytosis (manual) Tear Drop Cells Ovalocytes Puncture Site pCO2 (35-45) mm/Hg pO2 (80-100) mm/Hg HCO3 (21-28) mmol/L ABG pH (7.35-7.45) ABG Total CO2 (22-28) mmol/L ABG O2 Saturation (95-98) % ABG Base Excess (-2.0-3.0) mmol/L ABG Hemoglobin (11.7-17.4) g/dL ABG Carboxyhemoglobin (0.5-1.5) % POC ABG HHb (Measured) (0.0-5.0) % ABG Methemoglobin (0.0-3.0) % Nadir Test A-a O2 Difference mm/Hg Respiratory Index Hgb O2 Saturation (95.0-98.0) % FiO2 % Sodium (132-148) mmol/L Potassium (3.6-5.2) mmol/L Chloride (98-107) mmol/L Carbon Dioxide (22-30) mmol/L Anion Gap (10-20) BUN (7-17) mg/dL Creatinine (0.7-1.2) MG/DL Est GFR ( Amer) Est GFR (Non-Af Amer) POC Glucose (mg/dL) 235 H 155 H > 500 H* (65-110) mg/dL Random Glucose (65-105) mg/dL Calcium (8.6-10.4) mg/dl Phosphorus (2.5-4.5) mg/dL Magnesium (1.6-2.3) mg/dL Total Bilirubin (0.2-1.3) mg/dL AST (14-36) U/L ALT (9-52) U/L Alkaline Phosphatase (38-126) U/L Total Protein (6.3-8.3) g/dL Albumin (3.5-5.0) g/dL Globulin (2.2-3.9) gm/dL Albumin/Globulin Ratio (1.0-2.1) 02/19/17 02/19/17 Range/Units 11:45 11:41 WBC (4.8-10.8) K/uL RBC (3.80-5.20) Mil/uL Hgb (11.0-16.0) g/dL Hct (34.0-47.0) % MCV (81.0-99.0) fL MCH (27.0-31.0) pg MCHC (33.0-37.0) g/dL RDW (11.5-14.5) % Plt Count (130-400) K/uL MPV (7.2-11.7) fL Neut % (Auto) (50.0-75.0) % Lymph % (Auto) (20.0-40.0) % Gordon % (Auto) (0.0-10.0) % Eos % (Auto) (0.0-4.0) % Baso % (Auto) (0.0-2.0) % Neut # (1.8-7.0) K/uL Lymph # (1.0-4.3) K/uL Gordon # (0.0-0.8) K/uL Eos # (0.0-0.7) K/uL Baso # (0.0-0.2) K/uL Neutrophils % (Manual) (50-75) % Band Neutrophils % (0-2) % Lymphocytes % (Manual) (20-40) % Monocytes % (Manual) (0-10) % Platelet Estimate (NORMAL) Polychromasia Hypochromasia (manual) Anisocytosis (manual) Macrocytosis (manual) Tear Drop Cells Ovalocytes Puncture Site Rr pCO2 48 H (35-45) mm/Hg pO2 73 L (80-100) mm/Hg HCO3 25.3 (21-28) mmol/L ABG pH 7.35 (7.35-7.45) ABG Total CO2 28.0 (22-28) mmol/L ABG O2 Saturation 96.9 (95-98) % ABG Base Excess 0.5 (-2.0-3.0) mmol/L ABG Hemoglobin 9.6 L (11.7-17.4) g/dL ABG Carboxyhemoglobin 2.2 H (0.5-1.5) % POC ABG HHb (Measured) 3.0 (0.0-5.0) % ABG Methemoglobin 1.3 (0.0-3.0) % Nadir Test Pos A-a O2 Difference 152.0 mm/Hg Respiratory Index 2.1 Hgb O2 Saturation 93.4 L (95.0-98.0) % FiO2 40.0 % Sodium (132-148) mmol/L Potassium (3.6-5.2) mmol/L Chloride (98-107) mmol/L Carbon Dioxide (22-30) mmol/L Anion Gap (10-20) BUN (7-17) mg/dL Creatinine (0.7-1.2) MG/DL Est GFR ( Amer) Est GFR (Non-Af Amer) POC Glucose (mg/dL) 472 H* (65-110) mg/dL Random Glucose (65-105) mg/dL Calcium (8.6-10.4) mg/dl Phosphorus (2.5-4.5) mg/dL Magnesium (1.6-2.3) mg/dL Total Bilirubin (0.2-1.3) mg/dL AST (14-36) U/L ALT (9-52) U/L Alkaline Phosphatase (38-126) U/L Total Protein (6.3-8.3) g/dL Albumin (3.5-5.0) g/dL Globulin (2.2-3.9) gm/dL Albumin/Globulin Ratio (1.0-2.1) Laboratory Results - last 24 hr 02/19/17 02/19/17 02/19/17 11:41 11:45 15:58 WBC RBC Hgb Hct MCV MCH MCHC RDW Plt Count MPV Neut % (Auto) Lymph % (Auto) Gordon % (Auto) Eos % (Auto) Baso % (Auto) Neut # Lymph # Gordon # Eos # Baso # Neutrophils % (Manual) Band Neutrophils % Lymphocytes % (Manual) Monocytes % (Manual) Platelet Estimate Polychromasia Hypochromasia (manual) Anisocytosis (manual) Macrocytosis (manual) Tear Drop Cells Ovalocytes Puncture Site Rr pCO2 48 H pO2 73 L HCO3 25.3 ABG pH 7.35 ABG Total CO2 28.0 ABG O2 Saturation 96.9 ABG Base Excess 0.5 ABG Hemoglobin 9.6 L ABG Carboxyhemoglobin 2.2 H POC ABG HHb (Measured) 3.0 ABG Methemoglobin 1.3 Nadir Test Pos A-a O2 Difference 152.0 Respiratory Index 2.1 Hgb O2 Saturation 93.4 L FiO2 40.0 Sodium Potassium Chloride Carbon Dioxide Anion Gap BUN Creatinine Est GFR ( Amer) Est GFR (Non-Af Amer) POC Glucose (mg/dL) 472 H* > 500 H* Random Glucose Calcium Phosphorus Magnesium Total Bilirubin AST ALT Alkaline Phosphatase Total Protein Albumin Globulin Albumin/Globulin Ratio 02/19/17 02/20/17 02/20/17 21:25 00:19 06:44 WBC RBC Hgb Hct MCV MCH MCHC RDW Plt Count MPV Neut % (Auto) Lymph % (Auto) Gordon % (Auto) Eos % (Auto) Baso % (Auto) Neut # Lymph # Gordon # Eos # Baso # Neutrophils % (Manual) Band Neutrophils % Lymphocytes % (Manual) Monocytes % (Manual) Platelet Estimate Polychromasia Hypochromasia (manual) Anisocytosis (manual) Macrocytosis (manual) Tear Drop Cells Ovalocytes Puncture Site pCO2 pO2 HCO3 ABG pH ABG Total CO2 ABG O2 Saturation ABG Base Excess ABG Hemoglobin ABG Carboxyhemoglobin POC ABG HHb (Measured) ABG Methemoglobin Nadir Test A-a O2 Difference Respiratory Index Hgb O2 Saturation FiO2 Sodium Potassium Chloride Carbon Dioxide Anion Gap BUN Creatinine Est GFR ( Amer) Est GFR (Non-Af Amer) POC Glucose (mg/dL) 155 H 235 H 213 H Random Glucose Calcium Phosphorus Magnesium Total Bilirubin AST ALT Alkaline Phosphatase Total Protein Albumin Globulin Albumin/Globulin Ratio 02/20/17 02/20/17 06:47 06:47 WBC 9.5 RBC 2.94 L Hgb 9.4 L Hct 29.6 L MCV 101.0 H MCH 32.0 H MCHC 31.7 L RDW 16.8 H Plt Count 205 MPV 8.2 Neut % (Auto) 95.7 H Lymph % (Auto) 1.7 L Gordon % (Auto) 2.3 Eos % (Auto) 0.0 Baso % (Auto) 0.3 Neut # 9.1 H Lymph # 0.2 L Gordon # 0.2 Eos # 0.0 Baso # 0.0 Neutrophils % (Manual) 97 H Band Neutrophils % 1 Lymphocytes % (Manual) 1 L Monocytes % (Manual) 1 Platelet Estimate Normal Polychromasia Slight Hypochromasia (manual) Slight Anisocytosis (manual) Slight Macrocytosis (manual) Moderate Tear Drop Cells Slight Ovalocytes Slight Puncture Site pCO2 pO2 HCO3 ABG pH ABG Total CO2 ABG O2 Saturation ABG Base Excess ABG Hemoglobin ABG Carboxyhemoglobin POC ABG HHb (Measured) ABG Methemoglobin Nadir Test A-a O2 Difference Respiratory Index Hgb O2 Saturation FiO2 Sodium 140 Potassium 3.1 L Chloride 105 Carbon Dioxide 21 L Anion Gap 17 BUN 25 H Creatinine 1.8 H Est GFR ( Amer) 33 Est GFR (Non-Af Amer) 27 POC Glucose (mg/dL) Random Glucose 151 H Calcium 6.8 L Phosphorus 3.6 Magnesium 1.5 L Total Bilirubin 0.8 AST 21 ALT 62 H D Alkaline Phosphatase 58 Total Protein 4.6 L Albumin 2.7 L D Globulin 2.0 L Albumin/Globulin Ratio 1.4 Fingerstick Blood Sugar Results: 213 Review of Systems - Review of Systems Review of Systems: Not able to get a full review of systems because the patient stated it was difficult for her to speak. Assessment/Plan - Assessment and Plan (Free Text) Assessment: 76 year old female PMHx of A-fib on eliquis, CAD, ESRD on HD MWF, HTN, DM, and HLD presented to ER with increased dyspnea in need of emergent dialysis on 02/16. Plan: Neuro: - Alert and Oriented x3 - Patient said it was difficult for her to speak Pulm: - Improved pulmonary status - Chest X-ray 02/20: Improved bilateral pulmonary infiltrates. No pleural effusion. Cardiomegaly. CABG. No significant congestive change. - Chest X-ray 02/19: Re-demonstrated are diffuse bilateral infiltrates likely representing pulmonary vascular congestion and alveolar-type infiltrates. - Chest X-ray 02/16: Moderate to severe venous congestion with confluent consolidative changes in the mid to lower lung zones with associated bilateral pleural effusions - 02/19: pCO2: 48; HCO3: 25.3; pH: 7.35 CV: - Right Ventricular Heart Failure - Atrial Fibrillation - Cardiology Consult: Dr. Seo --> help appreciated - EKG 02/16: Atrial fibrillation with possible RVH and nonspecific ST and T wave abnl; HR 84bpm - Patient has hx of CAD s/p PCI and CABG - Cardiac cath on last admission 02/11 showed L Main: proximal 30% LAD: Mid 100% but MORILOL to LAD patent L Cx:Proximal 90% but SVG to OM1 and OM2 patent RCA: Ostial 50% with good RYAN 3 flow EF: 60%, EDP 19, No AV gradient Grafts are patent - Echo 02/09 Normal overall LV systolic function with paradoxical septal motion. LA volume index is markedly dilated. RA size severely dilated. Systolic function is severely reduced. RV is severely dilated. Severe pulmonary HTN. - Lipid panel on last admission WNL TG 46 Cholesterol 81 LDL < 30 HDL 53 - Patient started on digoxin today 02/19 with loading dose as follows: Digoxin 0.25mg po @ 11:35 02/19 Digoxin 0.125mg po @ 20:00 02/19 Digoxin 0.125mg po @ 4:00 02/20 - Will continue maintenance dose Digoxin 0.125mg po @ 18:00 daily from 02/20 onwards Will check digoxin level on 02/21 - Amiodarone 200mg po daily - Eliquis 2.5mg po bid - Pletal 100mg po bid - Lopressor 25mg po bid was stopped on 02/20 - Midodrine 5mg po tid Heme: - H/H (02/20): 9.4/29.6 Renal: - Renal Failure - Dialysis: Thursday//Thursday - Nephrology Consult: Dr. Barroso --> help appreciated - Potassium 3.1 - Potassium replenished GI: - Renal Diet DVT proph - SCDs Code status - full code Palliative Care Consult --> help appreciated Disposition: Transferred to Tele Case discussed with Dr. Yi Martinez PGY-1 <Wilmer Richmond - Last Filed: 02/20/17 16:16> CCU Objective - Vital Signs / Intake & Output Vital Signs (Last 4 hours): Vital Signs Pulse Resp BP Pulse Ox 02/20/17 15:34 127/63 02/20/17 15:33 106 H 18 94 L 02/20/17 15:30 117 H 21 97 02/20/17 15:20 108 H 15 120/68 96 02/20/17 15:10 96 H 15 97 02/20/17 15:04 111 H 18 119/66 95 02/20/17 15:00 90 16 97 02/20/17 14:51 108 H 25 H 116/63 97 02/20/17 14:50 113 H 19 86 L 02/20/17 14:40 109 H 16 97 02/20/17 14:34 94 H 16 121/57 L 97 02/20/17 14:30 108 H 16 98 02/20/17 14:20 100 H 16 98 02/20/17 14:19 110 H 15 123/61 96 02/20/17 14:10 108 H 14 96 02/20/17 14:05 110 H 22 129/62 99 02/20/17 14:00 104 H 16 97 02/20/17 13:50 103 H 24 127/64 96 02/20/17 13:40 103 H 17 99 02/20/17 13:35 103 H 15 125/65 99 02/20/17 13:30 101 H 20 97 02/20/17 13:20 94 H 14 98 02/20/17 13:19 93 H 15 121/57 L 95 02/20/17 13:10 92 H 14 96 02/20/17 13:04 93 H 15 118/61 95 02/20/17 13:00 95 H 13 97 02/20/17 12:50 90 18 101/59 L 96 02/20/17 12:40 98 H 22 96 02/20/17 12:34 94 H 13 100/64 94 L 02/20/17 12:30 107 H 16 96 02/20/17 12:20 101 H 23 95/68 L 91 L Intake and Output (Last 8hrs): Intake & Output 02/20/17 02/20/17 02/20/17 06:59 14:59 22:59 Intake Total 0 720 Balance 0 720 Intake: Intake, IV Amount 0 Right Hand 0 Oral 0 720 Other: # Bowel Movements 0 0 - Medications Active Medications: Active Medications Generic Name Dose Route Start Last Admin Trade Name Freq PRN Reason Stop Dose Admin Acetaminophen 650 mg 02/16/17 21:30 Tylenol 325mg Tab PO Q4 PRN Pain, Mild (1-3) Albuterol/Ipratropium 3 ml 02/17/17 02:00 02/20/17 13:19 Duoneb 3 Mg/0.5 Mg (3 Ml) Ud INH 3 ml RQ6 DON Administration Amiodarone HCl 200 mg 02/18/17 10:00 02/20/17 10:34 Cordarone PO 200 mg DAILY DON Administration Apixaban 2.5 mg 02/17/17 10:00 02/20/17 10:34 Eliquis PO 2.5 mg BID DON Administration Cilostazol 100 mg 02/17/17 10:00 02/20/17 10:34 Pletal PO 100 mg BID DON Administration Digoxin 0.125 mg 02/20/17 18:00 Lanoxin PO DAILY@1800 DON Doxycycline Hyclate 100 mg 02/16/17 22:00 02/20/17 10:34 Doryx PO 100 mg Q12 DON Administration Epoetin Sj 10,000 unit 02/20/17 09:00 02/20/17 11:00 Procrit IV 10,000 unit MWF DON Administration Famotidine 20 mg 02/17/17 10:00 02/20/17 10:32 Pepcid PO 20 mg DAILY DON Administration Azithromycin 500 mg/ Sodium 250 mls @ 250 mls/hr 02/18/17 22:00 02/19/17 21: 26 Chloride IVPB 250 mls/hr Q24H DON Administration Ceftriaxone Sodium 1 gm/ 100 mls @ 100 mls/hr 02/18/17 20:00 02/19/17 20:20 Sodium Chloride IVPB 100 mls/hr Q24H DON Administration Insulin Aspart 0 unit 02/20/17 16:30 Novolog SC ACHS DON Protocol Insulin Glargine 25 unit 02/19/17 18:00 02/20/17 06:55 Lantus SC 25 units Q12H DON Administration Methylprednisolone 40 mg 02/19/17 22:00 02/20/17 10:37 Solu-Medrol IVP 40 mg Q12 DON Administration Midodrine 5 mg 02/17/17 10:00 02/20/17 13:12 Proamatine PO 5 mg TID DON Administration Fluticasone/Salmeterol 1 puff 02/16/17 22:30 02/20/17 07:49 Advair Diskus 250/50 INH 1 puff RBID DON Administration Sevelamer Carbonate 800 mg 02/17/17 10:00 02/20/17 13:12 Renvela PO 800 mg TID DON Administration Silver Sulfadiazine 0 ea 02/16/17 22:00 02/20/17 13:13 Silvadene 1% 20 Gm TOP 1 applic QSHIFT DON Administration - Patient Studies Lab Studies: Lab Studies 02/20/17 02/20/17 02/20/17 Range/Units 15:58 11:38 06:47 WBC (4.8-10.8) K/uL RBC (3.80-5.20) Mil/uL Hgb (11.0-16.0) g/dL Hct (34.0-47.0) % MCV (81.0-99.0) fL MCH (27.0-31.0) pg MCHC (33.0-37.0) g/dL RDW (11.5-14.5) % Plt Count (130-400) K/uL MPV (7.2-11.7) fL Neut % (Auto) (50.0-75.0) % Lymph % (Auto) (20.0-40.0) % Gordon % (Auto) (0.0-10.0) % Eos % (Auto) (0.0-4.0) % Baso % (Auto) (0.0-2.0) % Neut # (1.8-7.0) K/uL Lymph # (1.0-4.3) K/uL Gordon # (0.0-0.8) K/uL Eos # (0.0-0.7) K/uL Baso # (0.0-0.2) K/uL Neutrophils % (Manual) (50-75) % Band Neutrophils % (0-2) % Lymphocytes % (Manual) (20-40) % Monocytes % (Manual) (0-10) % Platelet Estimate (NORMAL) Polychromasia Hypochromasia (manual) Anisocytosis (manual) Macrocytosis (manual) Tear Drop Cells Ovalocytes Sodium 140 (132-148) mmol/L Potassium 3.1 L (3.6-5.2) mmol/L Chloride 105 (98-107) mmol/L Carbon Dioxide 21 L (22-30) mmol/L Anion Gap 17 (10-20) BUN 25 H (7-17) mg/dL Creatinine 1.8 H (0.7-1.2) MG/DL Est GFR ( Amer) 33 Est GFR (Non-Af Amer) 27 POC Glucose (mg/dL) 264 H 383 H (65-110) mg/dL Random Glucose 151 H (65-105) mg/dL Calcium 6.8 L (8.6-10.4) mg/dl Phosphorus 3.6 (2.5-4.5) mg/dL Magnesium 1.5 L (1.6-2.3) mg/dL Total Bilirubin 0.8 (0.2-1.3) mg/dL AST 21 (14-36) U/L ALT 62 H D (9-52) U/L Alkaline Phosphatase 58 (38-126) U/L Total Protein 4.6 L (6.3-8.3) g/dL Albumin 2.7 L D (3.5-5.0) g/dL Globulin 2.0 L (2.2-3.9) gm/dL Albumin/Globulin Ratio 1.4 (1.0-2.1) 02/20/17 02/20/17 02/20/17 Range/Units 06:47 06:44 00:19 WBC 9.5 (4.8-10.8) K/uL RBC 2.94 L (3.80-5.20) Mil/uL Hgb 9.4 L (11.0-16.0) g/dL Hct 29.6 L (34.0-47.0) % MCV 101.0 H (81.0-99.0) fL MCH 32.0 H (27.0-31.0) pg MCHC 31.7 L (33.0-37.0) g/dL RDW 16.8 H (11.5-14.5) % Plt Count 205 (130-400) K/uL MPV 8.2 (7.2-11.7) fL Neut % (Auto) 95.7 H (50.0-75.0) % Lymph % (Auto) 1.7 L (20.0-40.0) % Gordon % (Auto) 2.3 (0.0-10.0) % Eos % (Auto) 0.0 (0.0-4.0) % Baso % (Auto) 0.3 (0.0-2.0) % Neut # 9.1 H (1.8-7.0) K/uL Lymph # 0.2 L (1.0-4.3) K/uL Gordon # 0.2 (0.0-0.8) K/uL Eos # 0.0 (0.0-0.7) K/uL Baso # 0.0 (0.0-0.2) K/uL Neutrophils % (Manual) 97 H (50-75) % Band Neutrophils % 1 (0-2) % Lymphocytes % (Manual) 1 L (20-40) % Monocytes % (Manual) 1 (0-10) % Platelet Estimate Normal (NORMAL) Polychromasia Slight Hypochromasia (manual) Slight Anisocytosis (manual) Slight Macrocytosis (manual) Moderate Tear Drop Cells Slight Ovalocytes Slight Sodium (132-148) mmol/L Potassium (3.6-5.2) mmol/L Chloride (98-107) mmol/L Carbon Dioxide (22-30) mmol/L Anion Gap (10-20) BUN (7-17) mg/dL Creatinine (0.7-1.2) MG/DL Est GFR ( Amer) Est GFR (Non-Af Amer) POC Glucose (mg/dL) 213 H 235 H (65-110) mg/dL Random Glucose (65-105) mg/dL Calcium (8.6-10.4) mg/dl Phosphorus (2.5-4.5) mg/dL Magnesium (1.6-2.3) mg/dL Total Bilirubin (0.2-1.3) mg/dL AST (14-36) U/L ALT (9-52) U/L Alkaline Phosphatase (38-126) U/L Total Protein (6.3-8.3) g/dL Albumin (3.5-5.0) g/dL Globulin (2.2-3.9) gm/dL Albumin/Globulin Ratio (1.0-2.1) 02/19/17 Range/Units 21:25 WBC (4.8-10.8) K/uL RBC (3.80-5.20) Mil/uL Hgb (11.0-16.0) g/dL Hct (34.0-47.0) % MCV (81.0-99.0) fL MCH (27.0-31.0) pg MCHC (33.0-37.0) g/dL RDW (11.5-14.5) % Plt Count (130-400) K/uL MPV (7.2-11.7) fL Neut % (Auto) (50.0-75.0) % Lymph % (Auto) (20.0-40.0) % Gordon % (Auto) (0.0-10.0) % Eos % (Auto) (0.0-4.0) % Baso % (Auto) (0.0-2.0) % Neut # (1.8-7.0) K/uL Lymph # (1.0-4.3) K/uL Gordon # (0.0-0.8) K/uL Eos # (0.0-0.7) K/uL Baso # (0.0-0.2) K/uL Neutrophils % (Manual) (50-75) % Band Neutrophils % (0-2) % Lymphocytes % (Manual) (20-40) % Monocytes % (Manual) (0-10) % Platelet Estimate (NORMAL) Polychromasia Hypochromasia (manual) Anisocytosis (manual) Macrocytosis (manual) Tear Drop Cells Ovalocytes Sodium (132-148) mmol/L Potassium (3.6-5.2) mmol/L Chloride (98-107) mmol/L Carbon Dioxide (22-30) mmol/L Anion Gap (10-20) BUN (7-17) mg/dL Creatinine (0.7-1.2) MG/DL Est GFR ( Amer) Est GFR (Non-Af Amer) POC Glucose (mg/dL) 155 H (65-110) mg/dL Random Glucose (65-105) mg/dL Calcium (8.6-10.4) mg/dl Phosphorus (2.5-4.5) mg/dL Magnesium (1.6-2.3) mg/dL Total Bilirubin (0.2-1.3) mg/dL AST (14-36) U/L ALT (9-52) U/L Alkaline Phosphatase (38-126) U/L Total Protein (6.3-8.3) g/dL Albumin (3.5-5.0) g/dL Globulin (2.2-3.9) gm/dL Albumin/Globulin Ratio (1.0-2.1) Laboratory Results - last 24 hr 02/19/17 02/20/17 02/20/17 21:25 00:19 06:44 WBC RBC Hgb Hct MCV MCH MCHC RDW Plt Count MPV Neut % (Auto) Lymph % (Auto) Gordon % (Auto) Eos % (Auto) Baso % (Auto) Neut # Lymph # Gordon # Eos # Baso # Neutrophils % (Manual) Band Neutrophils % Lymphocytes % (Manual) Monocytes % (Manual) Platelet Estimate Polychromasia Hypochromasia (manual) Anisocytosis (manual) Macrocytosis (manual) Tear Drop Cells Ovalocytes Sodium Potassium Chloride Carbon Dioxide Anion Gap BUN Creatinine Est GFR ( Amer) Est GFR (Non-Af Amer) POC Glucose (mg/dL) 155 H 235 H 213 H Random Glucose Calcium Phosphorus Magnesium Total Bilirubin AST ALT Alkaline Phosphatase Total Protein Albumin Globulin Albumin/Globulin Ratio 02/20/17 02/20/17 02/20/17 06:47 06:47 11:38 WBC 9.5 RBC 2.94 L Hgb 9.4 L Hct 29.6 L MCV 101.0 H MCH 32.0 H MCHC 31.7 L RDW 16.8 H Plt Count 205 MPV 8.2 Neut % (Auto) 95.7 H Lymph % (Auto) 1.7 L Gordon % (Auto) 2.3 Eos % (Auto) 0.0 Baso % (Auto) 0.3 Neut # 9.1 H Lymph # 0.2 L Gordon # 0.2 Eos # 0.0 Baso # 0.0 Neutrophils % (Manual) 97 H Band Neutrophils % 1 Lymphocytes % (Manual) 1 L Monocytes % (Manual) 1 Platelet Estimate Normal Polychromasia Slight Hypochromasia (manual) Slight Anisocytosis (manual) Slight Macrocytosis (manual) Moderate Tear Drop Cells Slight Ovalocytes Slight Sodium 140 Potassium 3.1 L Chloride 105 Carbon Dioxide 21 L Anion Gap 17 BUN 25 H Creatinine 1.8 H Est GFR ( Amer) 33 Est GFR (Non-Af Amer) 27 POC Glucose (mg/dL) 383 H Random Glucose 151 H Calcium 6.8 L Phosphorus 3.6 Magnesium 1.5 L Total Bilirubin 0.8 AST 21 ALT 62 H D Alkaline Phosphatase 58 Total Protein 4.6 L Albumin 2.7 L D Globulin 2.0 L Albumin/Globulin Ratio 1.4 02/20/17 15:58 WBC RBC Hgb Hct MCV MCH MCHC RDW Plt Count MPV Neut % (Auto) Lymph % (Auto) Gordon % (Auto) Eos % (Auto) Baso % (Auto) Neut # Lymph # Gordon # Eos # Baso # Neutrophils % (Manual) Band Neutrophils % Lymphocytes % (Manual) Monocytes % (Manual) Platelet Estimate Polychromasia Hypochromasia (manual) Anisocytosis (manual) Macrocytosis (manual) Tear Drop Cells Ovalocytes Sodium Potassium Chloride Carbon Dioxide Anion Gap BUN Creatinine Est GFR ( Amer) Est GFR (Non-Af Amer) POC Glucose (mg/dL) 264 H Random Glucose Calcium Phosphorus Magnesium Total Bilirubin AST ALT Alkaline Phosphatase Total Protein Albumin Globulin Albumin/Globulin Ratio Attending/Attestation - Attestation I have personally seen and examined this patient.: Yes I have fully participated in the care of the patient.: Yes I have reviewed all pertinent clinical information: Yes Notes (Text): 02/20/17 16:12 I have seen and examined the patient. Medical records, lab studies, and imaging were reviewed by me and a management plan was formulated on multidisciplinary rounds with resident Dr. Martinez. I agree with their above documented assessment and plan. Patient is clinically improved s/p dialysis. Clinically stable for downgrade to the floors. Patient has severe right ventricluar heart failure and will need dialysis to keep her on the dry side. Critical Care Time 35 minutes. Multi-disciplinary rounds were performed with house staff, nursing, speech therapy, respiratory therapy, pharmacy and nutrition with integrated input from the primary team/attending and other consulting services. The documented time is cumulative and includes review of patient data/exams/labs/chart review and examination of the patient on rounds and throughout the day; time is exclusive of any procedures or teaching time.
--- NOTE | 2017-02-20 12:35 | CARD ---
APPROVED REPORT EKG Measurement Heart [id number] <Conclusion> Atrial fibrillation Possible Right ventricular hypertrophy ST & T wave abnormality, consider inferolateral ischemia Abnormal ECG
--- NOTE | 2017-02-20 13:38 | CP.PCM.PN ---
Subjective - Date & Time of Evaluation Date of Evaluation: 02/20/17 Time of Evaluation: 13:35 - Subjective Subjective: s/p dialysis 02/19- UF 2100ml Has been transferred to ICU for AFib and RPR Given dig for AFib More alert today; claims difficulty talking as before No n, v, f, d, CPs Objective - Vital Signs/Intake and Output Vital Signs (last 24 hours): Temp Pulse Resp BP Pulse Ox 97.7 F 101 H 13 103/62 96 02/20/17 08:00 02/20/17 11:34 02/20/17 11:34 02/20/17 11:34 02/20/17 11:34 Intake and Output: 02/20/17 02/20/17 06:59 18:59 Intake Total 800 520 Balance 800 520 - Medications Medications: Current Medications Acetaminophen (Tylenol 325mg Tab) 650 mg PO Q4 PRN PRN Reason: Pain, Mild (1-3) Albuterol/Ipratropium (Duoneb 3 Mg/0.5 Mg (3 Ml) Ud) 3 ml INH RQ6 [facility] Last Admin: 02/20/17 13:19 Dose: 3 ml Amiodarone HCl (Cordarone) 200 mg PO DAILY [facility] Last Admin: 02/20/17 10:34 Dose: 200 mg Apixaban (Eliquis) 2.5 mg PO BID [facility] Last Admin: 02/20/17 10:34 Dose: 2.5 mg Cilostazol (Pletal) 100 mg PO BID [facility] Last Admin: 02/20/17 10:34 Dose: 100 mg Digoxin (Lanoxin) 0.125 mg PO DAILY@1800 [facility] Doxycycline Hyclate (Doryx) 100 mg PO Q12 [facility] Last Admin: 02/20/17 10:34 Dose: 100 mg Epoetin Sj (Procrit) 10,000 unit IV MWF [facility] Last Admin: 02/20/17 11:00 Dose: 10,000 unit Famotidine (Pepcid) 20 mg PO DAILY [facility] Last Admin: 02/20/17 10:32 Dose: 20 mg Azithromycin 500 mg/ Sodium (Chloride) 250 mls @ 250 mls/hr IVPB Q24H [facility] Last Admin: 02/19/17 21:26 Dose: 250 mls/hr Ceftriaxone Sodium 1 gm/ (Sodium Chloride) 100 mls @ 100 mls/hr IVPB Q24H [facility] Last Admin: 02/19/17 20:20 Dose: 100 mls/hr Insulin Aspart (Novolog) 0 unit SC Q6 [facility] PRN Reason: Protocol Last Admin: 02/20/17 13:00 Dose: 14 unit Insulin Glargine (Lantus) 25 unit SC Q12H [facility] Last Admin: 02/20/17 06:55 Dose: 25 units Methylprednisolone (Solu-Medrol) 40 mg IVP Q12 [facility] Last Admin: 02/20/17 10:37 Dose: 40 mg Midodrine (Proamatine) 5 mg PO TID [facility] Last Admin: 02/20/17 13:12 Dose: 5 mg Fluticasone/Salmeterol (Advair Diskus 250/50) 1 puff INH RBID [facility] Last Admin: 02/20/17 07:49 Dose: 1 puff Sevelamer Carbonate (Renvela) 800 mg PO TID [facility] Last Admin: 02/20/17 13:12 Dose: 800 mg Silver Sulfadiazine (Silvadene 1% 20 Gm) 0 ea TOP QSHIFT [facility] Last Admin: 02/20/17 13:13 Dose: 1 applic - Labs Labs: 02/20/17 06:47 02/20/17 06:47 - Constitutional Appears: Non-toxic, Chronically Ill - Head Exam Head Exam: ATRAUMATIC, NORMAL INSPECTION - Eye Exam Eye Exam: EOMI, Normal appearance - Neck Exam Neck Exam: Normal Inspection. absent: Tenderness - Respiratory Exam Respiratory Exam: Clear to Ausculation Bilateral, NORMAL BREATHING PATTERN - Cardiovascular Exam Cardiovascular Exam: Irregular Rhythm, +S1 - GI/Abdominal Exam GI & Abdominal Exam: Soft. absent: Tenderness - Extremities Exam Extremities Exam: Normal Inspection. absent: Tenderness - Neurological Exam Neurological Exam: Awake, CN II-XII Intact - Skin Skin Exam: Dry, Warm Assessment and Plan (1) ESRD (end stage renal disease) on dialysis Status: Chronic (2) Afib Status: Acute (3) CAD (coronary artery disease) of artery bypass graft Status: Acute (4) Congestive heart failure Status: Acute (5) Ischemic cardiomyopathy Status: Acute - Assessment and Plan (Free Text) Plan: Replete K Dialysis today and 02/21- moderate UF Rate control- dig , amiodarone, diltiazem Midodrine for hypotension
[2017-02-20] MEDS: Digoxin 125 mcg (0.125 mg) Tab PO SCH (17:47)
[2017-02-20] MEDS: Azithromycin 500 MG in Sodium Chloride 0.9% 250 ML IVPB SCH (23:03)
[2017-02-21] MEDS: Albuterol-Ipratrop 3 mg / 0.5 (3 ml) UD INH SCH ×4 (02:06→20:18)
[2017-02-21] MEDS: (Lantus) Insulin Glargine, Recombinant SC SCH ×2 (05:58→21:26)
[2017-02-21] MEDS: Silver Sulfadiazine 1% Cream (20 gm) TOP SCH ×3 (06:00→22:11)
[2017-02-21] MEDS: Fluticasone-Salmeterol 250-50mcg Diskus INH SCH ×2 (08:45→20:18)
[2017-02-21] MEDS: (Novolog) Insulin Aspart, Recombinant 100 u/ml 10 ml vial SC SCH ×4 (09:18→21:27)
[2017-02-21] MEDS: Cilostazol 100 mg Tab UD PO SCH ×2 (09:49→21:41)
[2017-02-21] MEDS: MethylPREDNISolone 40 mg Vial IVP SCH ×2 (09:50→21:42)
[2017-02-21] MEDS ORDERED: Metoprolol 1 mg/ml Inj IVP ONE (12:05)
--- NOTE | 2017-02-21 12:09 | CP.PCM.PN ---
Subjective - Date & Time of Evaluation Date of Evaluation: 02/21/17 Time of Evaluation: 10:30 - Subjective Subjective: at bedside eating lunch awake, but subdued for HD today no edema no chest pain not sob at rest no rash no nausea no vomiting no diarrhea no headache no cold intolerance no fever Objective - Vital Signs/Intake and Output Vital Signs (last 24 hours): Temp Pulse Resp BP Pulse Ox 97.7 F 84 20 137/74 100 02/21/17 09:28 02/21/17 09:28 02/21/17 09:28 02/21/17 09:28 02/21/17 09:28 Intake and Output: 02/21/17 02/21/17 06:59 18:59 Intake Total 250 Balance 250 - Medications Medications: Current Medications Acetaminophen (Tylenol 325mg Tab) 650 mg PO Q4 PRN PRN Reason: Pain, Mild (1-3) Albuterol/Ipratropium (Duoneb 3 Mg/0.5 Mg (3 Ml) Ud) 3 ml INH RQ6 [facility] Last Admin: 02/21/17 08:45 Dose: 3 ml Amiodarone HCl (Cordarone) 200 mg PO DAILY [facility] Last Admin: 02/21/17 09:49 Dose: 200 mg Apixaban (Eliquis) 2.5 mg PO BID [facility] Last Admin: 02/21/17 09:49 Dose: 2.5 mg Cilostazol (Pletal) 100 mg PO BID [facility] Last Admin: 02/21/17 09:49 Dose: 100 mg Digoxin (Lanoxin) 0.125 mg PO DAILY@1800 [facility] Last Admin: 02/20/17 17:47 Dose: 0.125 mg Doxycycline Hyclate (Doryx) 100 mg PO Q12 [facility] Last Admin: 02/21/17 09:49 Dose: 100 mg Epoetin Sj (Procrit) 10,000 unit IV MWF [facility] Last Admin: 02/20/17 11:00 Dose: 10,000 unit Famotidine (Pepcid) 20 mg PO DAILY [facility] Last Admin: 02/21/17 09:49 Dose: 20 mg Azithromycin 500 mg/ Sodium (Chloride) 250 mls @ 250 mls/hr IVPB Q24H [facility] Last Admin: 02/20/17 23:03 Dose: 250 mls/hr Ceftriaxone Sodium 1 gm/ (Sodium Chloride) 100 mls @ 100 mls/hr IVPB Q24H [facility] Last Admin: 02/20/17 21:16 Dose: 100 mls/hr Insulin Aspart (Novolog) 0 unit SC ACHS [facility] PRN Reason: Protocol Last Admin: 02/21/17 09:18 Dose: Not Given Insulin Glargine (Lantus) 25 unit SC Q12H [facility] Last Admin: 02/21/17 05:58 Dose: 25 units Methylprednisolone (Solu-Medrol) 40 mg IVP Q12 [facility] Last Admin: 02/21/17 09:50 Dose: 40 mg Metoprolol Tartrate (Lopressor) 5 mg IVP ONCE ONE Stop: 02/21/17 12:06 Midodrine (Proamatine) 5 mg PO TID [facility] Last Admin: 02/21/17 09:49 Dose: 5 mg Fluticasone/Salmeterol (Advair Diskus 250/50) 1 puff INH RBID [facility] Last Admin: 02/21/17 08:45 Dose: Not Given Sevelamer Carbonate (Renvela) 800 mg PO TID [facility] Last Admin: 02/21/17 09:49 Dose: 800 mg Silver Sulfadiazine (Silvadene 1% 20 Gm) 0 ea TOP QSHIFT [facility] Last Admin: 02/21/17 06:00 Dose: 1 applic - Labs Labs: 02/20/17 06:47 02/20/17 06:47 - Constitutional Appears: No Acute Distress, Chronically Ill - Eye Exam Eye Exam: EOMI, Normal appearance - ENT Exam ENT Exam: Mucous Membranes Moist - Neck Exam Neck Exam: Full ROM. absent: Lymphadenopathy - Respiratory Exam Respiratory Exam: Decreased Breath Sounds. absent: Accessory Muscle Use - Cardiovascular Exam Cardiovascular Exam: Tachycardia, Irregular Rhythm - GI/Abdominal Exam GI & Abdominal Exam: Soft, Normal Bowel Sounds. absent: Tenderness - Extremities Exam Extremities Exam: absent: Pedal Edema - Neurological Exam Neurological Exam: Alert Assessment and Plan - Assessment and Plan (Free Text) Assessment: esrd dm ischemic cardiomyopathy afib repeat HD today continue meds for arrhythmia rehab efforts
--- NOTE | 2017-02-21 14:37 | CP.PCM.PN ---
Subjective - Date & Time of Evaluation Date of Evaluation: 02/21/17 Time of Evaluation: 09:20 - Subjective Subjective: clinically same Objective - Vital Signs/Intake and Output Vital Signs (last 24 hours): Temp Pulse Resp BP Pulse Ox 97.7 F 84 20 137/74 100 02/21/17 09:28 02/21/17 09:28 02/21/17 09:28 02/21/17 09:28 02/21/17 09:28 Intake and Output: 02/21/17 02/21/17 06:59 18:59 Intake Total 250 Balance 250 - Medications Medications: Current Medications Acetaminophen (Tylenol 325mg Tab) 650 mg PO Q4 PRN PRN Reason: Pain, Mild (1-3) Albuterol/Ipratropium (Duoneb 3 Mg/0.5 Mg (3 Ml) Ud) 3 ml INH RQ6 [facility] Last Admin: 02/21/17 13:13 Dose: 3 ml Amiodarone HCl (Cordarone) 200 mg PO DAILY [facility] Last Admin: 02/21/17 09:49 Dose: 200 mg Apixaban (Eliquis) 2.5 mg PO BID [facility] Last Admin: 02/21/17 09:49 Dose: 2.5 mg Cilostazol (Pletal) 100 mg PO BID [facility] Last Admin: 02/21/17 09:49 Dose: 100 mg Digoxin (Lanoxin) 0.125 mg PO DAILY@1800 [facility] Last Admin: 02/20/17 17:47 Dose: 0.125 mg Doxycycline Hyclate (Doryx) 100 mg PO Q12 [facility] Last Admin: 02/21/17 09:49 Dose: 100 mg Epoetin Sj (Procrit) 10,000 unit IV MWF [facility] Last Admin: 02/20/17 11:00 Dose: 10,000 unit Famotidine (Pepcid) 20 mg PO DAILY [facility] Last Admin: 02/21/17 09:49 Dose: 20 mg Azithromycin 500 mg/ Sodium (Chloride) 250 mls @ 250 mls/hr IVPB Q24H [facility] Last Admin: 02/20/17 23:03 Dose: 250 mls/hr Ceftriaxone Sodium 1 gm/ (Sodium Chloride) 100 mls @ 100 mls/hr IVPB Q24H [facility] Last Admin: 02/20/17 21:16 Dose: 100 mls/hr Insulin Aspart (Novolog) 0 unit SC ACHS [facility] PRN Reason: Protocol Last Admin: 02/21/17 13:15 Dose: 12 unit Insulin Glargine (Lantus) 25 unit SC Q12H [facility] Last Admin: 02/21/17 05:58 Dose: 25 units Methylprednisolone (Solu-Medrol) 40 mg IVP Q12 [facility] Last Admin: 02/21/17 09:50 Dose: 40 mg Midodrine (Proamatine) 5 mg PO TID [facility] Last Admin: 02/21/17 13:14 Dose: 5 mg Fluticasone/Salmeterol (Advair Diskus 250/50) 1 puff INH RBID [facility] Last Admin: 02/21/17 08:45 Dose: Not Given Sevelamer Carbonate (Renvela) 800 mg PO TID [facility] Last Admin: 02/21/17 13:14 Dose: 800 mg Silver Sulfadiazine (Silvadene 1% 20 Gm) 0 ea TOP QSHIFT [facility] Last Admin: 02/21/17 06:00 Dose: 1 applic - Labs Labs: 02/20/17 06:47 02/20/17 06:47
--- NOTE | 2017-02-21 17:15 | CP.PCM.PN ---
Subjective - Date & Time of Evaluation Date of Evaluation: 02/21/17 Time of Evaluation: 17:15 Objective - Vital Signs/Intake and Output Vital Signs (last 24 hours): Temp Pulse Resp BP Pulse Ox 97.4 F L 112 H 22 105/44 L 95 02/21/17 15:37 02/21/17 15:37 02/21/17 15:37 02/21/17 15:37 02/21/17 15:37 Intake and Output: 02/21/17 02/21/17 06:59 18:59 Intake Total 250 Balance 250 - Medications Medications: Current Medications Acetaminophen (Tylenol 325mg Tab) 650 mg PO Q4 PRN PRN Reason: Pain, Mild (1-3) Albuterol/Ipratropium (Duoneb 3 Mg/0.5 Mg (3 Ml) Ud) 3 ml INH RQ6 [facility] Last Admin: 02/21/17 13:13 Dose: 3 ml Amiodarone HCl (Cordarone) 200 mg PO DAILY [facility] Last Admin: 02/21/17 09:49 Dose: 200 mg Apixaban (Eliquis) 2.5 mg PO BID [facility] Last Admin: 02/21/17 09:49 Dose: 2.5 mg Cilostazol (Pletal) 100 mg PO BID [facility] Last Admin: 02/21/17 09:49 Dose: 100 mg Digoxin (Lanoxin) 0.125 mg PO DAILY@1800 [facility] Last Admin: 02/20/17 17:47 Dose: 0.125 mg Doxycycline Hyclate (Doryx) 100 mg PO Q12 [facility] Last Admin: 02/21/17 09:49 Dose: 100 mg Epoetin Sj (Procrit) 10,000 unit IV MWF [facility] Last Admin: 02/20/17 11:00 Dose: 10,000 unit Famotidine (Pepcid) 20 mg PO DAILY [facility] Last Admin: 02/21/17 09:49 Dose: 20 mg Azithromycin 500 mg/ Sodium (Chloride) 250 mls @ 250 mls/hr IVPB Q24H [facility] Last Admin: 02/20/17 23:03 Dose: 250 mls/hr Ceftriaxone Sodium 1 gm/ (Sodium Chloride) 100 mls @ 100 mls/hr IVPB Q24H [facility] Last Admin: 02/20/17 21:16 Dose: 100 mls/hr Insulin Aspart (Novolog) 0 unit SC ACHS [facility] PRN Reason: Protocol Last Admin: 02/21/17 16:34 Dose: 16 unit Insulin Glargine (Lantus) 25 unit SC Q12H [facility] Last Admin: 02/21/17 05:58 Dose: 25 units Methylprednisolone (Solu-Medrol) 40 mg IVP Q12 [facility] Last Admin: 02/21/17 09:50 Dose: 40 mg Midodrine (Proamatine) 5 mg PO TID [facility] Last Admin: 02/21/17 17:05 Dose: 5 mg Fluticasone/Salmeterol (Advair Diskus 250/50) 1 puff INH RBID [facility] Last Admin: 02/21/17 08:45 Dose: Not Given Sevelamer Carbonate (Renvela) 800 mg PO TID [facility] Last Admin: 02/21/17 13:14 Dose: 800 mg Silver Sulfadiazine (Silvadene 1% 20 Gm) 0 ea TOP QSHIFT [facility] Last Admin: 02/21/17 15:38 Dose: 1 applic - Labs Labs: 02/20/17 06:47 02/20/17 06:47
[2017-02-21] MEDS: Digoxin 125 mcg (0.125 mg) Tab PO SCH (21:42)
[2017-02-21] MEDS: Azithromycin 500 MG in Sodium Chloride 0.9% 250 ML IVPB SCH (23:42)
[2017-02-22] MEDS: (Lantus) Insulin Glargine, Recombinant SC SCH ×2 (07:27→17:32)
[2017-02-22] MEDS: Silver Sulfadiazine 1% Cream (20 gm) TOP SCH ×3 (07:47→21:43)
[2017-02-22] MEDS ORDERED: Albuterol-Ipratrop 3 mg / 0.5 (3 ml) UD ONE (08:04)
[2017-02-22] MEDS: Fluticasone-Salmeterol 250-50mcg Diskus INH SCH ×2 (08:04→19:51)
[2017-02-22] MEDS: Albuterol-Ipratrop 3 mg / 0.5 (3 ml) UD INH SCH (08:04)
--- NOTE | 2017-02-22 08:16 | CP.PCM.PN ---
Subjective - Date & Time of Evaluation Date of Evaluation: 02/22/17 Time of Evaluation: 08:16 Objective - Vital Signs/Intake and Output Vital Signs (last 24 hours): Temp Pulse Resp BP Pulse Ox 98.1 F 105 H 18 133/54 L 97 02/21/17 23:15 02/22/17 03:01 02/22/17 05:00 02/22/17 05:00 02/22/17 05:00 - Medications Medications: Current Medications Acetaminophen (Tylenol 325mg Tab) 650 mg PO Q4 PRN PRN Reason: Pain, Mild (1-3) Amiodarone HCl (Cordarone) 200 mg PO DAILY [facility] Last Admin: 02/21/17 09:49 Dose: 200 mg Apixaban (Eliquis) 2.5 mg PO BID [facility] Last Admin: 02/21/17 21:42 Dose: 2.5 mg Cilostazol (Pletal) 100 mg PO BID [facility] Last Admin: 02/21/17 21:41 Dose: 100 mg Digoxin (Lanoxin) 0.125 mg PO DAILY@1800 [facility] Last Admin: 02/21/17 21:42 Dose: 0.125 mg Doxycycline Hyclate (Doryx) 100 mg PO Q12 [facility] Last Admin: 02/21/17 21:41 Dose: 100 mg Epoetin Sj (Procrit) 10,000 unit IV MWF [facility] Last Admin: 02/20/17 11:00 Dose: 10,000 unit Famotidine (Pepcid) 20 mg PO DAILY [facility] Last Admin: 02/21/17 09:49 Dose: 20 mg Azithromycin 500 mg/ Sodium (Chloride) 250 mls @ 250 mls/hr IVPB Q24H [facility] Last Admin: 02/21/17 23:42 Dose: 250 mls/hr Ceftriaxone Sodium 1 gm/ (Sodium Chloride) 100 mls @ 100 mls/hr IVPB Q24H [facility] Last Admin: 02/21/17 22:10 Dose: 100 mls/hr Insulin Aspart (Novolog) 0 unit SC ACHS [facility] PRN Reason: Protocol Last Admin: 02/21/17 21:27 Dose: Not Given Insulin Glargine (Lantus) 25 unit SC Q12H [facility] Last Admin: 02/22/17 07:27 Dose: 25 units Methylprednisolone (Solu-Medrol) 40 mg IVP Q12 [facility] Last Admin: 02/21/17 21:42 Dose: 40 mg Midodrine (Proamatine) 5 mg PO TID [facility] Last Admin: 02/21/17 17:05 Dose: 5 mg Fluticasone/Salmeterol (Advair Diskus 250/50) 1 puff INH RBID [facility] Last Admin: 02/22/17 08:04 Dose: 1 puff Sevelamer Carbonate (Renvela) 800 mg PO TID [facility] Last Admin: 02/21/17 21:41 Dose: 800 mg Silver Sulfadiazine (Silvadene 1% 20 Gm) 0 ea TOP QSHIFT [facility] Last Admin: 02/22/17 07:47 Dose: 1 applic - Labs Labs: 02/20/17 06:47 02/20/17 06:47
[2017-02-22] MEDS: (Novolog) Insulin Aspart, Recombinant 100 u/ml 10 ml vial SC SCH ×4 (08:59→21:39)
[2017-02-22] MEDS: MethylPREDNISolone 40 mg Vial IVP SCH ×2 (10:25→21:44)
[2017-02-22] MEDS: Cilostazol 100 mg Tab UD PO SCH ×2 (10:25→17:25)
--- NOTE | 2017-02-22 14:16 | CP.PCM.PN ---
Subjective - Date & Time of Evaluation Date of Evaluation: 02/22/17 Time of Evaluation: 14:16 Objective - Vital Signs/Intake and Output Vital Signs (last 24 hours): Temp Pulse Resp BP Pulse Ox 98.1 F 94 H 20 102/56 L 91 L 02/22/17 13:17 02/22/17 13:17 02/22/17 13:17 02/22/17 13:17 02/22/17 13:17 - Medications Medications: Current Medications Acetaminophen (Tylenol 325mg Tab) 650 mg PO Q4 PRN PRN Reason: Pain, Mild (1-3) Amiodarone HCl (Cordarone) 200 mg PO DAILY [facility] Last Admin: 02/22/17 10:26 Dose: 200 mg Cilostazol (Pletal) 100 mg PO BID [facility] Last Admin: 02/22/17 10:25 Dose: 100 mg Digoxin (Lanoxin) 0.125 mg PO DAILY@1800 [facility] Last Admin: 02/21/17 21:42 Dose: 0.125 mg Doxycycline Hyclate (Doryx) 100 mg PO Q12 [facility] Last Admin: 02/22/17 10:25 Dose: 100 mg Epoetin Sj (Procrit) 10,000 unit IV MWF [facility] Last Admin: 02/20/17 11:00 Dose: 10,000 unit Famotidine (Pepcid) 20 mg PO DAILY [facility] Last Admin: 02/22/17 10:25 Dose: 20 mg Azithromycin 500 mg/ Sodium (Chloride) 250 mls @ 250 mls/hr IVPB Q24H [facility] Last Admin: 02/21/17 23:42 Dose: 250 mls/hr Ceftriaxone Sodium 1 gm/ (Sodium Chloride) 100 mls @ 100 mls/hr IVPB Q24H [facility] Last Admin: 02/21/17 22:10 Dose: 100 mls/hr Insulin Aspart (Novolog) 0 unit SC ACHS [facility] PRN Reason: Protocol Last Admin: 02/22/17 13:19 Dose: 14 unit Insulin Glargine (Lantus) 25 unit SC Q12H [facility] Last Admin: 02/22/17 07:27 Dose: 25 units Methylprednisolone (Solu-Medrol) 40 mg IVP Q12 [facility] Last Admin: 02/22/17 10:25 Dose: 40 mg Midodrine (Proamatine) 5 mg PO TID [facility] Last Admin: 02/22/17 13:19 Dose: 5 mg Fluticasone/Salmeterol (Advair Diskus 250/50) 1 puff INH RBID [facility] Last Admin: 02/22/17 08:04 Dose: 1 puff Sevelamer Carbonate (Renvela) 800 mg PO TID [facility] Last Admin: 02/22/17 13:19 Dose: 800 mg Silver Sulfadiazine (Silvadene 1% 20 Gm) 0 ea TOP QSHIFT [facility] Last Admin: 02/22/17 13:22 Dose: 1 applic - Labs Labs: 02/20/17 06:47 02/20/17 06:47
[2017-02-22] MEDS: Digoxin 125 mcg (0.125 mg) Tab PO SCH (17:24)
--- NOTE | 2017-02-22 21:36 | CP.PCM.PN ---
Subjective - Date & Time of Evaluation Date of Evaluation: 02/22/17 Objective - Vital Signs/Intake and Output Vital Signs (last 24 hours): Temp Pulse Resp BP Pulse Ox 97.8 F 93 H 20 120/60 95 02/22/17 15:52 02/22/17 18:00 02/22/17 15:52 02/22/17 15:52 02/22/17 15:52 Intake and Output: 02/22/17 02/23/17 18:59 06:59 Intake Total 220 100 Balance 220 100 - Medications Medications: Current Medications Acetaminophen (Tylenol 325mg Tab) 650 mg PO Q4 PRN PRN Reason: Pain, Mild (1-3) Amiodarone HCl (Cordarone) 200 mg PO DAILY [facility] Last Admin: 02/22/17 10:26 Dose: 200 mg Cilostazol (Pletal) 100 mg PO BID [facility] Last Admin: 02/22/17 17:25 Dose: 100 mg Digoxin (Lanoxin) 0.125 mg PO DAILY@1800 [facility] Last Admin: 02/22/17 17:24 Dose: 0.125 mg Doxycycline Hyclate (Doryx) 100 mg PO Q12 [facility] Last Admin: 02/22/17 10:25 Dose: 100 mg Epoetin Sj (Procrit) 10,000 unit IV MWF [facility] Last Admin: 02/20/17 11:00 Dose: 10,000 unit Famotidine (Pepcid) 20 mg PO DAILY [facility] Last Admin: 02/22/17 10:25 Dose: 20 mg Azithromycin 500 mg/ Sodium (Chloride) 250 mls @ 250 mls/hr IVPB Q24H [facility] Last Admin: 02/21/17 23:42 Dose: 250 mls/hr Ceftriaxone Sodium 1 gm/ (Sodium Chloride) 100 mls @ 100 mls/hr IVPB Q24H [facility] Last Admin: 02/22/17 19:59 Dose: 100 mls/hr Insulin Aspart (Novolog) 0 unit SC ACHS [facility] PRN Reason: Protocol Last Admin: 02/22/17 16:33 Dose: 12 unit Insulin Glargine (Lantus) 25 unit SC Q12H [facility] Last Admin: 02/22/17 17:32 Dose: 25 units Methylprednisolone (Solu-Medrol) 40 mg IVP Q12 [facility] Last Admin: 02/22/17 10:25 Dose: 40 mg Midodrine (Proamatine) 5 mg PO TID [facility] Last Admin: 02/22/17 17:26 Dose: 5 mg Fluticasone/Salmeterol (Advair Diskus 250/50) 1 puff INH RBID [facility] Last Admin: 02/22/17 19:51 Dose: 1 puff Sevelamer Carbonate (Renvela) 800 mg PO TID [facility] Last Admin: 02/22/17 17:28 Dose: 800 mg Silver Sulfadiazine (Silvadene 1% 20 Gm) 0 ea TOP QSHIFT [facility] Last Admin: 02/22/17 13:22 Dose: 1 applic - Labs Labs: 02/20/17 06:47 02/20/17 06:47
[2017-02-22] MEDS: Azithromycin 500 MG in Sodium Chloride 0.9% 250 ML IVPB SCH (21:44)
[2017-02-23] MEDS: (Lantus) Insulin Glargine, Recombinant SC SCH ×2 (06:10→18:56)
[2017-02-23] MEDS: Silver Sulfadiazine 1% Cream (20 gm) TOP SCH ×3 (06:38→21:36)
[2017-02-23] MEDS: Fluticasone-Salmeterol 250-50mcg Diskus INH SCH ×2 (07:40→20:34)
[2017-02-23] MEDS: Albuterol-Ipratrop 3 mg / 0.5 (3 ml) UD INH SCH ×3 (07:40→20:35)
--- NOTE | 2017-02-23 07:50 | CP.PCM.PN ---
Subjective - Date & Time of Evaluation Date of Evaluation: 02/23/17 Time of Evaluation: 07:30 - Subjective Subjective: Cardiology progress note for Dr. Seo Patient seen and examined at bedside. Patient had no acute events overnight and had no acute events over the weekend. She was resting comfortably in bed and was satting well on [place]. Patient denied acute complaints of headache, dizziness, chest pain, palpitations, SOB, cough, abd pain, nausea, vomiting, bowel/bladder complaints, pain/swelling in her legs bilaterally. She is due for HD today. Objective - Vital Signs/Intake and Output Vital Signs (last 24 hours): Temp Pulse Resp BP Pulse Ox 98.1 F 105 H 20 132/71 95 02/23/17 07:33 02/23/17 07:33 02/23/17 07:33 02/23/17 07:33 02/23/17 07:33 Intake and Output: 02/23/17 02/23/17 06:59 18:59 Intake Total 350 Balance 350 - Medications Medications: Current Medications Acetaminophen (Tylenol 325mg Tab) 650 mg PO Q4 PRN PRN Reason: Pain, Mild (1-3) Amiodarone HCl (Cordarone) 200 mg PO DAILY [facility] Last Admin: 02/22/17 10:26 Dose: 200 mg Carvedilol (Coreg) 3.125 mg PO BID [facility] Cilostazol (Pletal) 100 mg PO BID [facility] Last Admin: 02/22/17 17:25 Dose: 100 mg Digoxin (Lanoxin) 0.125 mg PO DAILY@1800 [facility] Last Admin: 02/22/17 17:24 Dose: 0.125 mg Epoetin Sj (Procrit) 10,000 unit IV MWF [facility] Last Admin: 02/20/17 11:00 Dose: 10,000 unit Famotidine (Pepcid) 20 mg PO DAILY [facility] Last Admin: 02/22/17 10:25 Dose: 20 mg Azithromycin 500 mg/ Sodium (Chloride) 250 mls @ 250 mls/hr IVPB Q24H [facility] Last Admin: 02/22/17 21:44 Dose: 250 mls/hr Ceftriaxone Sodium 1 gm/ (Sodium Chloride) 100 mls @ 100 mls/hr IVPB Q24H [facility] Last Admin: 02/22/17 19:59 Dose: 100 mls/hr Insulin Aspart (Novolog) 0 unit SC ACHS [facility] PRN Reason: Protocol Last Admin: 02/22/17 21:39 Dose: Not Given Insulin Glargine (Lantus) 25 unit SC Q12H [facility] Last Admin: 02/23/17 06:10 Dose: 25 units Methylprednisolone (Solu-Medrol) 40 mg IVP Q12 [facility] Last Admin: 02/22/17 21:44 Dose: 40 mg Midodrine (Proamatine) 5 mg PO TID [facility] Last Admin: 02/22/17 17:26 Dose: 5 mg Fluticasone/Salmeterol (Advair Diskus 250/50) 1 puff INH RBID [facility] Last Admin: 02/23/17 07:40 Dose: 1 puff Sevelamer Carbonate (Renvela) 800 mg PO TID [facility] Last Admin: 02/22/17 17:28 Dose: 800 mg Silver Sulfadiazine (Silvadene 1% 20 Gm) 0 ea TOP QSHIFT [facility] Last Admin: 02/23/17 06:38 Dose: 1 applic - Labs Labs: 02/20/17 06:47 02/20/17 06:47 - Constitutional Appears: Chronically Ill - Head Exam Head Exam: NORMAL INSPECTION, NORMOCEPHALIC - Eye Exam Eye Exam: EOMI, Normal appearance. absent: Conjunctival injection, Scleral icterus Pupil Exam: NORMAL ACCOMODATION - ENT Exam ENT Exam: Mucous Membranes Dry - Respiratory Exam Respiratory Exam: NORMAL BREATHING PATTERN. absent: Accessory Muscle Use, Respiratory Distress Additional comments: coarse breath sounds b/l on posterior lung munguia - Cardiovascular Exam Cardiovascular Exam: Tachycardia, Irregular Rhythm, +S1, +S2. absent: Murmur - GI/Abdominal Exam GI & Abdominal Exam: Soft, Normal Bowel Sounds. absent: Tenderness - Extremities Exam Extremities Exam: Normal Inspection. absent: Pedal Edema, Tenderness - Neurological Exam Neurological Exam: Alert, Awake, Oriented x3 - Psychiatric Exam Psychiatric exam: Flat Affect - Skin Skin Exam: Dry, Intact, Normal Color Assessment and Plan - Assessment and Plan (Free Text) Assessment: 76 year old female PMHx of A-fib on eliquis, CAD, ESRD on HD MWF, HTN, DM, and HLD presented to ER with increased dyspnea in need of emergent dialysis on . Cardiology consulted for rapid A-fib Plan: -Known hx of Afib with CHADS2-VASC score : 7 points Eliquis 2.5mg po bid -EKG 02/18: Atrial fibrillation with possible RVH and ST and T wave abnl; HR 99bpm -EKG 02/16: Atrial fibrillation with possible RVH and nonspecific ST and T wave abnl; HR 84bpm -Patient has hx of CAD s/p PCI and CABG -Cardiac cath on last admission 02/11 showed L Main: proximal 30% LAD: Mid 100% but MORILLO to LAD patent L Cx:Proximal 90% but SVG to OM1 and OM2 patent RCA: Ostial 50% with good RYAN 3 flow EF: 60%, EDP 19, No AV gradient Grafts are patent -Echo 02/09: Normal overall LV systolic function with paradoxical septal motion LA volume index is markedly dilated. RA size severely dilated. Systolic function is severely reduced. RV is severely dilated. Severe pulmonary HTN. -Lipid panel on last admission WNL TG 46 Cholesterol 81 LDL < 30 HDL 53 -Continue current management Digoxin 0.125mg po daily digoxin level: 1.5 on 02/22 Amiodarone 200mg po daily Pletal 100mg po bid Midodrine 5mg po tid Coreg 3.125mg po bid Eliquis 2.5mg po bid Case discussed with Dr. Gabbi Trevino PGY2
[2017-02-23] MEDS: (Novolog) Insulin Aspart, Recombinant 100 u/ml 10 ml vial SC SCH ×4 (09:28→22:10)
[2017-02-23] MEDS: Cilostazol 100 mg Tab UD PO SCH ×3 (09:31→18:58)
[2017-02-23] MEDS: MethylPREDNISolone 40 mg Vial IVP SCH ×3 (09:32→21:36)
[2017-02-23] MEDS ORDERED: Metoprolol 1 mg/ml Inj IVP ONE ×2 (10:41→11:01)
[2017-02-23] MEDS ORDERED: Sodium Chloride 0.9% 250 ML IV ONE (10:41)
--- NOTE | 2017-02-23 11:20 | CP.PCM.PN ---
Subjective - Date & Time of Evaluation Date of Evaluation: 02/23/17 Time of Evaluation: 10:20 - Subjective Subjective: clinically same Objective - Vital Signs/Intake and Output Vital Signs (last 24 hours): Temp Pulse Resp BP Pulse Ox 98.9 F 108 H 20 117/73 95 02/23/17 09:40 02/23/17 11:18 02/23/17 10:58 02/23/17 11:18 02/23/17 10:58 Intake and Output: 02/23/17 02/23/17 06:59 18:59 Intake Total 350 Balance 350 - Medications Medications: Current Medications Acetaminophen (Tylenol 325mg Tab) 650 mg PO Q4 PRN PRN Reason: Pain, Mild (1-3) Albuterol/Ipratropium (Duoneb 3 Mg/0.5 Mg (3 Ml) Ud) 3 ml INH RQ6 [facility] Amiodarone HCl (Cordarone) 200 mg PO DAILY [facility] Last Admin: 02/23/17 09:55 Dose: 200 mg Apixaban (Eliquis) 2.5 mg PO BID [facility] Carvedilol (Coreg) 3.125 mg PO BID [facility] Last Admin: 02/23/17 09:31 Dose: Not Given Cilostazol (Pletal) 100 mg PO BID [facility] Last Admin: 02/23/17 09:31 Dose: Not Given Digoxin (Lanoxin) 0.125 mg PO DAILY@1800 [facility] Last Admin: 02/22/17 17:24 Dose: 0.125 mg Epoetin Sj (Procrit) 10,000 unit IV MWF [facility] Last Admin: 02/20/17 11:00 Dose: 10,000 unit Famotidine (Pepcid) 20 mg PO DAILY [facility] Last Admin: 02/23/17 09:31 Dose: Not Given Azithromycin 500 mg/ Sodium (Chloride) 250 mls @ 250 mls/hr IVPB Q24H [facility] Last Admin: 02/22/17 21:44 Dose: 250 mls/hr Ceftriaxone Sodium 1 gm/ (Sodium Chloride) 100 mls @ 100 mls/hr IVPB Q24H [facility] Last Admin: 02/22/17 19:59 Dose: 100 mls/hr Insulin Aspart (Novolog) 0 unit SC ACHS [facility] PRN Reason: Protocol Last Admin: 02/23/17 09:28 Dose: 8 unit Insulin Glargine (Lantus) 25 unit SC Q12H [facility] Last Admin: 02/23/17 06:10 Dose: 25 units Methylprednisolone (Solu-Medrol) 40 mg IVP Q12 [facility] Last Admin: 02/23/17 10:01 Dose: 40 mg Midodrine (Proamatine) 5 mg PO TID [facility] Last Admin: 02/23/17 09:55 Dose: 5 mg Fluticasone/Salmeterol (Advair Diskus 250/50) 1 puff INH RBID [facility] Last Admin: 02/23/17 07:40 Dose: 1 puff Sevelamer Carbonate (Renvela) 800 mg PO TID [facility] Last Admin: 02/23/17 09:32 Dose: Not Given Silver Sulfadiazine (Silvadene 1% 20 Gm) 0 ea TOP QSHIFT [facility] Last Admin: 02/23/17 06:38 Dose: 1 applic - Labs Labs: 02/20/17 06:47 02/20/17 06:47 - Constitutional Appears: Well - Head Exam Head Exam: ATRAUMATIC, NORMAL INSPECTION, NORMOCEPHALIC - Eye Exam Eye Exam: EOMI, Normal appearance, PERRL Pupil Exam: NORMAL ACCOMODATION, PERRL - ENT Exam ENT Exam: Mucous Membranes Moist, Normal Exam - Neck Exam Neck Exam: Full ROM, Normal Inspection. absent: Lymphadenopathy - Respiratory Exam Respiratory Exam: Decreased Breath Sounds - Cardiovascular Exam Cardiovascular Exam: REGULAR RHYTHM, +S1, +S2 - GI/Abdominal Exam GI & Abdominal Exam: Soft, Diminished Bowel Sounds - Rectal Exam Rectal Exam: Deferred
--- NOTE | 2017-02-23 13:38 | CP.PCM.PN ---
Subjective - Date & Time of Evaluation Date of Evaluation: 02/23/17 Time of Evaluation: 13:35 - Subjective Subjective: Unable to dialyze earlier due to increase HR Feels better now- VR still 120s Baseline dyspnea still present No n, v, d, f, c Objective - Vital Signs/Intake and Output Vital Signs (last 24 hours): Temp Pulse Resp BP Pulse Ox 98.9 F 94 H 18 119/67 93 L 02/23/17 09:40 02/23/17 11:39 02/23/17 11:39 02/23/17 11:39 02/23/17 11:39 Intake and Output: 02/23/17 02/23/17 06:59 18:59 Intake Total 350 Balance 350 - Medications Medications: Current Medications Acetaminophen (Tylenol 325mg Tab) 650 mg PO Q4 PRN PRN Reason: Pain, Mild (1-3) Albuterol/Ipratropium (Duoneb 3 Mg/0.5 Mg (3 Ml) Ud) 3 ml INH RQ6 [facility] Amiodarone HCl (Cordarone) 200 mg PO DAILY [facility] Last Admin: 02/23/17 09:55 Dose: 200 mg Apixaban (Eliquis) 2.5 mg PO BID [facility] Last Admin: 02/23/17 11:52 Dose: 2.5 mg Carvedilol (Coreg) 3.125 mg PO BID [facility] Last Admin: 02/23/17 11:52 Dose: 3.125 mg Cilostazol (Pletal) 100 mg PO BID [facility] Last Admin: 02/23/17 11:52 Dose: 100 mg Digoxin (Lanoxin) 0.125 mg PO DAILY@1800 [facility] Last Admin: 02/22/17 17:24 Dose: 0.125 mg Epoetin Sj (Procrit) 10,000 unit IV MWF [facility] Last Admin: 02/20/17 11:00 Dose: 10,000 unit Famotidine (Pepcid) 20 mg PO DAILY [facility] Last Admin: 02/23/17 11:52 Dose: 20 mg Azithromycin 500 mg/ Sodium (Chloride) 250 mls @ 250 mls/hr IVPB Q24H [facility] Last Admin: 02/22/17 21:44 Dose: 250 mls/hr Ceftriaxone Sodium 1 gm/ (Sodium Chloride) 100 mls @ 100 mls/hr IVPB Q24H [facility] Last Admin: 02/22/17 19:59 Dose: 100 mls/hr Insulin Aspart (Novolog) 0 unit SC ACHS [facility] PRN Reason: Protocol Last Admin: 02/23/17 09:28 Dose: 8 unit Insulin Glargine (Lantus) 25 unit SC Q12H [facility] Last Admin: 02/23/17 06:10 Dose: 25 units Methylprednisolone (Solu-Medrol) 40 mg IVP Q12 [facility] Last Admin: 02/23/17 10:01 Dose: 40 mg Midodrine (Proamatine) 5 mg PO TID [facility] Last Admin: 02/23/17 09:55 Dose: 5 mg Fluticasone/Salmeterol (Advair Diskus 250/50) 1 puff INH RBID [facility] Last Admin: 02/23/17 07:40 Dose: 1 puff Sevelamer Carbonate (Renvela) 800 mg PO TID [facility] Last Admin: 02/23/17 09:32 Dose: Not Given Silver Sulfadiazine (Silvadene 1% 20 Gm) 0 ea TOP QSHIFT [facility] Last Admin: 02/23/17 06:38 Dose: 1 applic - Labs Labs: 02/20/17 06:47 02/20/17 06:47 - Constitutional Appears: In Acute Distress, Chronically Ill - Head Exam Head Exam: ATRAUMATIC, NORMAL INSPECTION - Eye Exam Eye Exam: EOMI, Normal appearance - Neck Exam Neck Exam: Normal Inspection. absent: Tenderness - Respiratory Exam Respiratory Exam: Rales, Respiratory Distress - Cardiovascular Exam Cardiovascular Exam: Tachycardia, Irregular Rhythm - GI/Abdominal Exam GI & Abdominal Exam: Soft. absent: Tenderness - Neurological Exam Neurological Exam: Alert, CN II-XII Intact - Skin Skin Exam: Dry, Warm Assessment and Plan (1) ESRD (end stage renal disease) on dialysis Status: Chronic (2) Afib Status: Acute (3) CAD (coronary artery disease) of artery bypass graft Status: Acute (4) Congestive heart failure Status: Acute (5) Ischemic cardiomyopathy Status: Acute - Assessment and Plan (Free Text) Plan: change to metoprolol Dialysis for adequate UF Monitor heart rate; BP continue midodrine
[2017-02-23 14:40] LABS: HEMOGLOBIN 10.2 g/dL (11.0-16.0); MEAN CELL VOLUME 100.2 fL (81.0-99.0); MEAN CORPUSCULAR HEMOGLOBIN 32.2 pg (27.0-31.0); MEAN CORPUSCULAR HGB CONC 32.1 g/dL (33.0-37.0); MEAN PLATELET VOLUME 8.9 fL (7.2-11.7); RBC 3.17 Mil/uL (3.80-5.20); RED CELL DISTRIBUTION WIDTH 16.4 % (11.5-14.5); WHITE BLOOD COUNT 7.9 K/uL (4.8-10.8)
[2017-02-23 14:51] LABS: ALBUMIN 3.4 g/dL (3.5-5.0)
[2017-02-23 14:54] LABS: ALB/GLOB RATIO 1.2 (1.0-2.1); CALCIUM 9.9 mg/dl (8.6-10.4)
[2017-02-23] MEDS: Epoetin Alfa 10,000 unit/ml Dialysis IV SCH (15:12)
[2017-02-23] MEDS ORDERED: Albumin Human 25% (12.5 gm/50 ml) IV ONE ×3 (15:15→16:15)
--- NOTE | 2017-02-23 17:29 | CP.PCM.PN ---
Subjective - Date & Time of Evaluation Date of Evaluation: 02/23/17 Time of Evaluation: 17:29 Objective - Vital Signs/Intake and Output Vital Signs (last 24 hours): Temp Pulse Resp BP Pulse Ox 98 F 79 20 89/32 L 95 02/23/17 14:10 02/23/17 14:10 02/23/17 14:10 02/23/17 16:10 02/23/17 14:10 Intake and Output: 02/23/17 02/23/17 06:59 18:59 Intake Total 350 Balance 350 - Medications Medications: Current Medications Acetaminophen (Tylenol 325mg Tab) 650 mg PO Q4 PRN PRN Reason: Pain, Mild (1-3) Albuterol/Ipratropium (Duoneb 3 Mg/0.5 Mg (3 Ml) Ud) 3 ml INH RQ6 [facility] Amiodarone HCl (Cordarone) 200 mg PO DAILY [facility] Last Admin: 02/23/17 09:55 Dose: 200 mg Apixaban (Eliquis) 2.5 mg PO BID [facility] Last Admin: 02/23/17 11:52 Dose: 2.5 mg Cilostazol (Pletal) 100 mg PO BID [facility] Last Admin: 02/23/17 11:52 Dose: 100 mg Digoxin (Lanoxin) 0.125 mg PO DAILY@1800 [facility] Last Admin: 02/22/17 17:24 Dose: 0.125 mg Epoetin Sj (Procrit) 10,000 unit IV MWF [facility] Last Admin: 02/23/17 15:12 Dose: 10,000 unit Famotidine (Pepcid) 20 mg PO DAILY [facility] Last Admin: 02/23/17 11:52 Dose: 20 mg Azithromycin 500 mg/ Sodium (Chloride) 250 mls @ 250 mls/hr IVPB Q24H [facility] Last Admin: 02/22/17 21:44 Dose: 250 mls/hr Ceftriaxone Sodium 1 gm/ (Sodium Chloride) 100 mls @ 100 mls/hr IVPB Q24H [facility] Last Admin: 02/22/17 19:59 Dose: 100 mls/hr Insulin Aspart (Novolog) 0 unit SC ACHS [facility] PRN Reason: Protocol Last Admin: 02/23/17 14:35 Dose: 10 unit Insulin Glargine (Lantus) 25 unit SC Q12H [facility] Last Admin: 02/23/17 06:10 Dose: 25 units Methylprednisolone (Solu-Medrol) 40 mg IVP Q12 [facility] Last Admin: 02/23/17 10:01 Dose: 40 mg Metoprolol Tartrate (Lopressor) 25 mg PO BID [facility] Midodrine (Proamatine) 5 mg PO TID [facility] Last Admin: 02/23/17 14:35 Dose: 5 mg Fluticasone/Salmeterol (Advair Diskus 250/50) 1 puff INH RBID [facility] Last Admin: 02/23/17 07:40 Dose: 1 puff Sevelamer Carbonate (Renvela) 800 mg PO TID [facility] Last Admin: 02/23/17 14:05 Dose: Not Given Silver Sulfadiazine (Silvadene 1% 20 Gm) 0 ea TOP QSHIFT [facility] Last Admin: 02/23/17 14:05 Dose: Not Given - Labs Labs: 02/23/17 14:37 02/23/17 14:37
[2017-02-23] MEDS: Digoxin 125 mcg (0.125 mg) Tab PO SCH (18:58)
[2017-02-23] MEDS: Azithromycin 500 MG in Sodium Chloride 0.9% 250 ML IVPB SCH (21:36)
[2017-02-24] MEDS: Albuterol-Ipratrop 3 mg / 0.5 (3 ml) UD INH SCH ×4 (01:16→19:11)
[2017-02-24] MEDS: (Lantus) Insulin Glargine, Recombinant SC SCH ×2 (05:35→17:51)
[2017-02-24] MEDS: Silver Sulfadiazine 1% Cream (20 gm) TOP SCH ×3 (05:36→21:36)
--- NOTE | 2017-02-24 07:12 | CP.PCM.PN ---
Subjective - Date & Time of Evaluation Date of Evaluation: 02/24/17 Time of Evaluation: 07:14 - Subjective Subjective: Cardiology progress note for Dr. Seo Patient seen and examined at bedside receiving nebulizer treatment by respiratory therapist. She had HD yesterday 02/23. HR has been controlled 60- 80bpm overnight. Patient had no acute events overnight as per nursing and was resting comfortably when I saw her this AM. She seemed tired in comparison to yesterday. Patient denied chest pain, SOB, abdominal pain, pain/swelling in her legs bilaterally. Objective - Vital Signs/Intake and Output Vital Signs (last 24 hours): Temp Pulse Resp BP Pulse Ox 97.9 F 68 20 93/47 L 90 L 02/23/17 23:28 02/24/17 01:46 02/23/17 23:28 02/23/17 23:28 02/23/17 23:28 Intake and Output: 02/24/17 02/24/17 06:59 18:59 Intake Total 550 Balance 550 - Medications Medications: Current Medications Acetaminophen (Tylenol 325mg Tab) 650 mg PO Q4 PRN PRN Reason: Pain, Mild (1-3) Albuterol/Ipratropium (Duoneb 3 Mg/0.5 Mg (3 Ml) Ud) 3 ml INH RQ6 [facility] Last Admin: 02/24/17 01:16 Dose: 3 ml Amiodarone HCl (Cordarone) 200 mg PO DAILY [facility] Last Admin: 02/23/17 09:55 Dose: 200 mg Apixaban (Eliquis) 2.5 mg PO BID [facility] Last Admin: 02/23/17 18:57 Dose: 2.5 mg Cilostazol (Pletal) 100 mg PO BID [facility] Last Admin: 02/23/17 18:58 Dose: 100 mg Digoxin (Lanoxin) 0.125 mg PO DAILY@1800 [facility] Last Admin: 02/23/17 18:58 Dose: 0.125 mg Epoetin Sj (Procrit) 10,000 unit IV MWF [facility] Last Admin: 02/23/17 15:12 Dose: 10,000 unit Famotidine (Pepcid) 20 mg PO DAILY [facility] Last Admin: 02/23/17 11:52 Dose: 20 mg Azithromycin 500 mg/ Sodium (Chloride) 250 mls @ 250 mls/hr IVPB Q24H [facility] Last Admin: 02/23/17 21:36 Dose: 250 mls/hr Ceftriaxone Sodium 1 gm/ (Sodium Chloride) 100 mls @ 100 mls/hr IVPB Q24H [facility] Last Admin: 02/23/17 19:05 Dose: 100 mls/hr Insulin Aspart (Novolog) 0 unit SC ACHS [facility] PRN Reason: Protocol Last Admin: 02/23/17 22:10 Dose: Not Given Insulin Glargine (Lantus) 25 unit SC Q12H [facility] Last Admin: 02/24/17 05:35 Dose: 25 units Methylprednisolone (Solu-Medrol) 40 mg IVP Q12 [facility] Last Admin: 02/23/17 21:36 Dose: 40 mg Metoprolol Tartrate (Lopressor) 25 mg PO BID [facility] Last Admin: 02/23/17 18:57 Dose: 25 mg Midodrine (Proamatine) 5 mg PO TID [facility] Last Admin: 02/23/17 18:58 Dose: 5 mg Fluticasone/Salmeterol (Advair Diskus 250/50) 1 puff INH RBID [facility] Last Admin: 02/23/17 20:34 Dose: 1 puff Sevelamer Carbonate (Renvela) 800 mg PO TID [facility] Last Admin: 02/23/17 18:57 Dose: 800 mg Silver Sulfadiazine (Silvadene 1% 20 Gm) 0 ea TOP QSHIFT [facility] Last Admin: 02/24/17 05:36 Dose: 1 applic - Labs Labs: 02/23/17 14:37 02/23/17 14:37 - Constitutional Appears: Chronically Ill - Head Exam Head Exam: ATRAUMATIC, NORMOCEPHALIC - Eye Exam Eye Exam: EOMI, Normal appearance, PERRL. absent: Conjunctival injection, Scleral icterus - ENT Exam ENT Exam: Mucous Membranes Dry - Respiratory Exam Respiratory Exam: Decreased Breath Sounds, NORMAL BREATHING PATTERN. absent: Accessory Muscle Use, Rales, Rhonchi, Wheezes, Respiratory Distress - Cardiovascular Exam Cardiovascular Exam: Irregular Rhythm, +S1, +S2. absent: Bradycardia, Tachycardia, Murmur - GI/Abdominal Exam GI & Abdominal Exam: Soft, Normal Bowel Sounds. absent: Firm, Guarding, Tenderness - Extremities Exam Extremities Exam: Normal Capillary Refill, Normal Inspection. absent: Pedal Edema, Tenderness - Neurological Exam Neurological Exam: Alert, Awake, Oriented x3 - Psychiatric Exam Psychiatric exam: Flat Affect - Skin Skin Exam: Dry, Intact, Normal Color, Warm Assessment and Plan - Assessment and Plan (Free Text) Assessment: 76 year old female PMHx of A-fib on eliquis, CAD, ESRD on HD MWF, HTN, DM, and HLD presented to ER with increased dyspnea in need of emergent dialysis on . Cardiology consulted for rapid A-fib Plan: -Current rate controlled Afib 60-70bpm -Known hx of Afib with CHADS2-VASC score : 7 points Eliquis 2.5mg po bid -EKG 02/18: Atrial fibrillation with possible RVH and ST and T wave abnl; HR 99bpm -EKG 02/16: Atrial fibrillation with possible RVH and nonspecific ST and T wave abnl; HR 84bpm -Patient has hx of CAD s/p PCI and CABG -Cardiac cath on last admission 02/11 showed L Main: proximal 30% LAD: Mid 100% but MORILLO to LAD patent L Cx:Proximal 90% but SVG to OM1 and OM2 patent RCA: Ostial 50% with good RYAN 3 flow EF: 60%, EDP 19, No AV gradient Grafts are patent -Echo 02/09: Normal overall LV systolic function with paradoxical septal motion LA volume index is markedly dilated. RA size severely dilated. Systolic function is severely reduced. RV is severely dilated. Severe pulmonary HTN. -Lipid panel on last admission WNL TG 46 Cholesterol 81 LDL < 30 HDL 53 -Continue current management Digoxin 0.125mg po daily digoxin level: 1.5 on 02/22 Amiodarone 200mg po daily Pletal 100mg po bid Midodrine 5mg po tid Lopressor 25mg po bid Eliquis 2.5mg po bid Case discussed with Dr. Gabbi Trevino PGY2
[2017-02-24 08:32] LABS: HEPATITIS B SURFACE AG NEGATIVE (NEGATIVE)
[2017-02-24 08:37] LABS: HEPATITIS B CORE AB NEGATIVE (NEGATIVE)
[2017-02-24 08:40] LABS: HEPATITIS B SURFACE AG NEGATIVE (NEGATIVE)
[2017-02-24 08:45] LABS: HEPATITIS A IGM NEGATIVE (NEGATIVE)
[2017-02-24 08:46] LABS: HEPATITIS B CORE AB NEGATIVE (NEGATIVE)
[2017-02-24 08:49] LABS: HEPATITIS C ANTIBODY NEGATIVE (NEGATIVE)
[2017-02-24 08:57] LABS: HEPATITIS C ANTIBODY NEGATIVE (NEGATIVE)
[2017-02-24] MEDS: (Novolog) Insulin Aspart, Recombinant 100 u/ml 10 ml vial SC SCH ×4 (09:39→21:48)
[2017-02-24] MEDS: MethylPREDNISolone 40 mg Vial IVP SCH ×2 (09:40→21:36)
[2017-02-24] MEDS: Cilostazol 100 mg Tab UD PO SCH ×2 (09:41→17:53)
[2017-02-24] MEDS: Fluticasone-Salmeterol 250-50mcg Diskus INH SCH ×2 (09:53→19:10)
--- NOTE | 2017-02-24 11:25 | CP.PCM.PN ---
Subjective - Date & Time of Evaluation Date of Evaluation: 02/24/17 Time of Evaluation: 10:40 - Subjective Subjective: clinically same Objective - Vital Signs/Intake and Output Vital Signs (last 24 hours): Temp Pulse Resp BP Pulse Ox 97.8 F 76 20 106/50 L 95 02/24/17 07:36 02/24/17 07:36 02/24/17 07:36 02/24/17 09:41 02/24/17 07:36 Intake and Output: 02/24/17 02/24/17 06:59 18:59 Intake Total 550 Balance 550 - Medications Medications: Current Medications Acetaminophen (Tylenol 325mg Tab) 650 mg PO Q4 PRN PRN Reason: Pain, Mild (1-3) Albuterol/Ipratropium (Duoneb 3 Mg/0.5 Mg (3 Ml) Ud) 3 ml INH RQ6 [facility] Last Admin: 02/24/17 07:24 Dose: 3 ml Amiodarone HCl (Cordarone) 200 mg PO DAILY [facility] Last Admin: 02/24/17 09:41 Dose: 200 mg Apixaban (Eliquis) 2.5 mg PO BID [facility] Last Admin: 02/24/17 09:41 Dose: 2.5 mg Cilostazol (Pletal) 100 mg PO BID [facility] Last Admin: 02/24/17 09:41 Dose: 100 mg Digoxin (Lanoxin) 0.125 mg PO DAILY@1800 [facility] Last Admin: 02/23/17 18:58 Dose: 0.125 mg Epoetin Sj (Procrit) 10,000 unit IV MWF [facility] Last Admin: 02/23/17 15:12 Dose: 10,000 unit Famotidine (Pepcid) 20 mg PO DAILY [facility] Last Admin: 02/24/17 09:42 Dose: 20 mg Azithromycin 500 mg/ Sodium (Chloride) 250 mls @ 250 mls/hr IVPB Q24H [facility] Last Admin: 02/23/17 21:36 Dose: 250 mls/hr Ceftriaxone Sodium 1 gm/ (Sodium Chloride) 100 mls @ 100 mls/hr IVPB Q24H [facility] Last Admin: 02/23/17 19:05 Dose: 100 mls/hr Insulin Aspart (Novolog) 0 unit SC ACHS [facility] PRN Reason: Protocol Last Admin: 02/24/17 09:39 Dose: 8 unit Insulin Glargine (Lantus) 25 unit SC Q12H [facility] Last Admin: 02/24/17 05:35 Dose: 25 units Methylprednisolone (Solu-Medrol) 40 mg IVP Q12 [facility] Last Admin: 02/24/17 09:40 Dose: 40 mg Metoprolol Tartrate (Lopressor) 25 mg PO BID [facility] Last Admin: 02/24/17 09:41 Dose: Not Given Midodrine (Proamatine) 5 mg PO TID [facility] Last Admin: 02/24/17 09:40 Dose: 5 mg Fluticasone/Salmeterol (Advair Diskus 250/50) 1 puff INH RBID [facility] Last Admin: 02/24/17 09:53 Dose: Not Given Sevelamer Carbonate (Renvela) 800 mg PO TID [facility] Last Admin: 02/24/17 09:41 Dose: 800 mg Silver Sulfadiazine (Silvadene 1% 20 Gm) 0 ea TOP QSHIFT [facility] Last Admin: 02/24/17 05:36 Dose: 1 applic - Labs Labs: 02/23/17 14:37 02/23/17 14:37 - Constitutional Appears: Well - Head Exam Head Exam: ATRAUMATIC, NORMAL INSPECTION, NORMOCEPHALIC - Eye Exam Eye Exam: EOMI, Normal appearance, PERRL Pupil Exam: NORMAL ACCOMODATION, PERRL - ENT Exam ENT Exam: Mucous Membranes Moist, Normal Exam - Neck Exam Neck Exam: Full ROM, Normal Inspection. absent: Lymphadenopathy - Respiratory Exam Respiratory Exam: Decreased Breath Sounds - Cardiovascular Exam Cardiovascular Exam: REGULAR RHYTHM, +S1, +S2 - GI/Abdominal Exam GI & Abdominal Exam: Soft, Diminished Bowel Sounds - Rectal Exam Rectal Exam: Deferred
--- NOTE | 2017-02-24 11:35 | CP.PCM.PN ---
Subjective - Date & Time of Evaluation Date of Evaluation: 02/24/17 Time of Evaluation: 11:34 - Subjective Subjective: seen and examined, denies any cp/sob/nausea/vomiting/headache/fevers/chills/ dizziness dialyzed yesterday heart rate low bp Objective - Vital Signs/Intake and Output Vital Signs (last 24 hours): Temp Pulse Resp BP Pulse Ox 97.8 F 76 20 106/50 L 95 02/24/17 07:36 02/24/17 07:36 02/24/17 07:36 02/24/17 09:41 02/24/17 07:36 Intake and Output: 02/24/17 02/24/17 06:59 18:59 Intake Total 550 Balance 550 - Medications Medications: Current Medications Acetaminophen (Tylenol 325mg Tab) 650 mg PO Q4 PRN PRN Reason: Pain, Mild (1-3) Albuterol/Ipratropium (Duoneb 3 Mg/0.5 Mg (3 Ml) Ud) 3 ml INH RQ6 [facility] Last Admin: 02/24/17 07:24 Dose: 3 ml Amiodarone HCl (Cordarone) 200 mg PO DAILY [facility] Last Admin: 02/24/17 09:41 Dose: 200 mg Apixaban (Eliquis) 2.5 mg PO BID [facility] Last Admin: 02/24/17 09:41 Dose: 2.5 mg Cilostazol (Pletal) 100 mg PO BID [facility] Last Admin: 02/24/17 09:41 Dose: 100 mg Digoxin (Lanoxin) 0.125 mg PO DAILY@1800 [facility] Last Admin: 02/23/17 18:58 Dose: 0.125 mg Epoetin Sj (Procrit) 10,000 unit IV MWF [facility] Last Admin: 02/23/17 15:12 Dose: 10,000 unit Famotidine (Pepcid) 20 mg PO DAILY [facility] Last Admin: 02/24/17 09:42 Dose: 20 mg Azithromycin 500 mg/ Sodium (Chloride) 250 mls @ 250 mls/hr IVPB Q24H [facility] Last Admin: 02/23/17 21:36 Dose: 250 mls/hr Ceftriaxone Sodium 1 gm/ (Sodium Chloride) 100 mls @ 100 mls/hr IVPB Q24H [facility] Last Admin: 02/23/17 19:05 Dose: 100 mls/hr Insulin Aspart (Novolog) 0 unit SC ACHS [facility] PRN Reason: Protocol Last Admin: 02/24/17 09:39 Dose: 8 unit Insulin Glargine (Lantus) 25 unit SC Q12H [facility] Last Admin: 02/24/17 05:35 Dose: 25 units Methylprednisolone (Solu-Medrol) 40 mg IVP Q12 [facility] Last Admin: 02/24/17 09:40 Dose: 40 mg Metoprolol Tartrate (Lopressor) 25 mg PO BID [facility] Last Admin: 02/24/17 09:41 Dose: Not Given Midodrine (Proamatine) 5 mg PO TID [facility] Last Admin: 02/24/17 09:40 Dose: 5 mg Fluticasone/Salmeterol (Advair Diskus 250/50) 1 puff INH RBID [facility] Last Admin: 02/24/17 09:53 Dose: Not Given Sevelamer Carbonate (Renvela) 800 mg PO TID [facility] Last Admin: 02/24/17 09:41 Dose: 800 mg Silver Sulfadiazine (Silvadene 1% 20 Gm) 0 ea TOP QSHIFT [facility] Last Admin: 02/24/17 05:36 Dose: 1 applic - Labs Labs: 02/23/17 14:37 02/23/17 14:37 - Constitutional Appears: Non-toxic, No Acute Distress - Head Exam Head Exam: NORMAL INSPECTION - Eye Exam Eye Exam: Normal appearance - ENT Exam ENT Exam: Mucous Membranes Moist, Normal Exam - Neck Exam Neck Exam: Normal Inspection - Respiratory Exam Respiratory Exam: Decreased Breath Sounds, NORMAL BREATHING PATTERN - Cardiovascular Exam Cardiovascular Exam: Irregular Rhythm - GI/Abdominal Exam GI & Abdominal Exam: Distended, Soft, Normal Bowel Sounds - Extremities Exam Extremities Exam: Normal Inspection Assessment and Plan (1) ESRD (end stage renal disease) on dialysis Status: Chronic (2) Acute pulmonary edema with congestive heart failure Status: Acute (3) Atrial flutter with rapid ventricular response Status: Acute (4) Cardiomyopathy Status: Acute (5) Congestive heart failure Status: Acute - Assessment and Plan (Free Text) Assessment: hd tomorrow low k diet cardiac management
--- NOTE | 2017-02-24 14:17 | CP.PCM.PN ---
Subjective - Date & Time of Evaluation Date of Evaluation: 02/24/17 Time of Evaluation: 14:17 Objective - Vital Signs/Intake and Output Vital Signs (last 24 hours): Temp Pulse Resp BP Pulse Ox 97.8 F 76 20 106/50 L 95 02/24/17 07:36 02/24/17 07:36 02/24/17 07:36 02/24/17 09:41 02/24/17 07:36 Intake and Output: 02/24/17 02/24/17 06:59 18:59 Intake Total 550 Balance 550 - Medications Medications: Current Medications Acetaminophen (Tylenol 325mg Tab) 650 mg PO Q4 PRN PRN Reason: Pain, Mild (1-3) Albuterol/Ipratropium (Duoneb 3 Mg/0.5 Mg (3 Ml) Ud) 3 ml INH RQ6 [facility] Last Admin: 02/24/17 13:14 Dose: 3 ml Amiodarone HCl (Cordarone) 200 mg PO DAILY [facility] Last Admin: 02/24/17 09:41 Dose: 200 mg Apixaban (Eliquis) 2.5 mg PO BID [facility] Last Admin: 02/24/17 09:41 Dose: 2.5 mg Cilostazol (Pletal) 100 mg PO BID [facility] Last Admin: 02/24/17 09:41 Dose: 100 mg Digoxin (Lanoxin) 0.125 mg PO DAILY@1800 [facility] Last Admin: 02/23/17 18:58 Dose: 0.125 mg Epoetin Sj (Procrit) 10,000 unit IV MWF [facility] Last Admin: 02/23/17 15:12 Dose: 10,000 unit Famotidine (Pepcid) 20 mg PO DAILY [facility] Last Admin: 02/24/17 09:42 Dose: 20 mg Azithromycin 500 mg/ Sodium (Chloride) 250 mls @ 250 mls/hr IVPB Q24H [facility] Last Admin: 02/23/17 21:36 Dose: 250 mls/hr Ceftriaxone Sodium 1 gm/ (Sodium Chloride) 100 mls @ 100 mls/hr IVPB Q24H [facility] Last Admin: 02/23/17 19:05 Dose: 100 mls/hr Insulin Aspart (Novolog) 0 unit SC ACHS [facility] PRN Reason: Protocol Last Admin: 02/24/17 13:30 Dose: 8 unit Insulin Glargine (Lantus) 25 unit SC Q12H [facility] Last Admin: 02/24/17 05:35 Dose: 25 units Methylprednisolone (Solu-Medrol) 40 mg IVP Q12 [facility] Last Admin: 02/24/17 09:40 Dose: 40 mg Metoprolol Tartrate (Lopressor) 25 mg PO BID [facility] Last Admin: 02/24/17 09:41 Dose: Not Given Midodrine (Proamatine) 5 mg PO TID [facility] Last Admin: 02/24/17 13:30 Dose: 5 mg Fluticasone/Salmeterol (Advair Diskus 250/50) 1 puff INH RBID [facility] Last Admin: 02/24/17 09:53 Dose: Not Given Sevelamer Carbonate (Renvela) 800 mg PO TID [facility] Last Admin: 02/24/17 13:30 Dose: 800 mg Silver Sulfadiazine (Silvadene 1% 20 Gm) 0 ea TOP QSHIFT [facility] Last Admin: 02/24/17 13:31 Dose: 1 applic - Labs Labs: 02/23/17 14:37 02/23/17 14:37
[2017-02-24] MEDS: Digoxin 125 mcg (0.125 mg) Tab PO SCH (17:53)
[2017-02-24] MEDS: Azithromycin 500 MG in Sodium Chloride 0.9% 250 ML IVPB SCH (21:35)
[2017-02-25] MEDS: Albuterol-Ipratrop 3 mg / 0.5 (3 ml) UD INH SCH ×4 (01:47→19:47)
[2017-02-25] MEDS: (Lantus) Insulin Glargine, Recombinant SC SCH ×2 (05:19→17:16)
[2017-02-25] MEDS: Silver Sulfadiazine 1% Cream (20 gm) TOP SCH ×3 (05:23→22:05)
[2017-02-25] MEDS: Fluticasone-Salmeterol 250-50mcg Diskus INH SCH ×2 (07:09→19:47)
[2017-02-25 07:40] LABS: HEMOGLOBIN 11.1 g/dL (11.0-16.0); LYMPH # 0.2 K/uL (1.0-4.3); LYMPH % 2.2 % (20.0-40.0); MEAN CELL VOLUME 99.7 fL (81.0-99.0); MEAN CORPUSCULAR HEMOGLOBIN 32.3 pg (27.0-31.0); MEAN CORPUSCULAR HGB CONC 32.4 g/dL (33.0-37.0); MEAN PLATELET VOLUME 8.4 fL (7.2-11.7); MONO # 0.3 K/uL (0.0-0.8); MONO % 4.5 % (0.0-10.0); NEUT # 7.1 K/uL (1.8-7.0); NEUT % 93.3 % (50.0-75.0); NRBC % 0.4 % (0.0-2.0); PLATELET COUNT 209 K/uL (130-400); RBC 3.43 Mil/uL (3.80-5.20); RED CELL DISTRIBUTION WIDTH 16.8 % (11.5-14.5); WHITE BLOOD COUNT 7.6 K/uL (4.8-10.8)
[2017-02-25 08:07] LABS: ALBUMIN 3.2 g/dL (3.5-5.0)
[2017-02-25] MEDS: (Novolog) Insulin Aspart, Recombinant 100 u/ml 10 ml vial SC SCH ×4 (08:07→22:04)
[2017-02-25 08:10] LABS: ALB/GLOB RATIO 1.5 (1.0-2.1)
[2017-02-25 08:11] LABS: CALCIUM 9.7 mg/dl (8.6-10.4)
[2017-02-25 09:06] LABS: ANISOCYTOSIS SLIGHT; LYMPHOCYTE 6 % (20-40); MONOCYTE 4 % (0-10); NEUTROPHIL 90 % (50-75); NUCLEATED RED BLOOD CELL 1 % (0-0); PLATELET ESTIMATE NORMAL (NORMAL); POLYCHROMIC SLIGHT; TOTAL CELLS COUNTED 100
[2017-02-25 09:07] LABS: BURR CELLS SLIGHT; OVALOCYTES SLIGHT
[2017-02-25 09:09] LABS: HYPOCHROMIC SLIGHT; SCHISTOCYTES SLIGHT; TEARDROP CELLS SLIGHT
--- NOTE | 2017-02-25 09:49 | CP.PCM.PN ---
Subjective - Date & Time of Evaluation Date of Evaluation: 02/25/17 Time of Evaluation: 07:50 - Subjective Subjective: Cardiology progress note for Dr. Seo Patient seen and examined at bedside. Patient was AO x 1 to self- said it was 2002 and she was in a high building. Patient had no acute events overnight. HR in 70-90bpm and is in Afib. Patient for HD today 02/25. Denied headache, chest pain, SOB, abdominal pain, b/l leg pain. Complete ROS unobtainable. Objective - Vital Signs/Intake and Output Vital Signs (last 24 hours): Temp Pulse Resp BP Pulse Ox 97.4 F L 75 20 127/66 91 L 02/25/17 08:30 02/25/17 08:30 02/25/17 08:30 02/25/17 08:30 02/25/17 08:30 Intake and Output: 02/25/17 02/25/17 06:59 18:59 Intake Total 550 Balance 550 - Medications Medications: Current Medications Acetaminophen (Tylenol 325mg Tab) 650 mg PO Q4 PRN PRN Reason: Pain, Mild (1-3) Albuterol/Ipratropium (Duoneb 3 Mg/0.5 Mg (3 Ml) Ud) 3 ml INH RQ6 [facility] Last Admin: 02/25/17 07:09 Dose: 3 ml Amiodarone HCl (Cordarone) 200 mg PO DAILY [facility] Last Admin: 02/24/17 09:41 Dose: 200 mg Apixaban (Eliquis) 2.5 mg PO BID [facility] Last Admin: 02/24/17 17:53 Dose: 2.5 mg Cilostazol (Pletal) 100 mg PO BID [facility] Last Admin: 02/24/17 17:53 Dose: 100 mg Digoxin (Lanoxin) 0.125 mg PO DAILY@1800 [facility] Last Admin: 02/24/17 17:53 Dose: 0.125 mg Epoetin Sj (Procrit) 10,000 unit IV MWF [facility] Last Admin: 02/23/17 15:12 Dose: 10,000 unit Famotidine (Pepcid) 20 mg PO DAILY [facility] Last Admin: 02/24/17 09:42 Dose: 20 mg Azithromycin 500 mg/ Sodium (Chloride) 250 mls @ 250 mls/hr IVPB Q24H [facility] Last Admin: 02/24/17 21:35 Dose: 250 mls/hr Ceftriaxone Sodium 1 gm/ (Sodium Chloride) 100 mls @ 100 mls/hr IVPB Q24H [facility] Last Admin: 02/24/17 19:59 Dose: 100 mls/hr Insulin Aspart (Novolog) 0 unit SC ACHS [facility] PRN Reason: Protocol Last Admin: 02/25/17 08:07 Dose: Not Given Insulin Glargine (Lantus) 25 unit SC Q12H [facility] Last Admin: 02/25/17 05:19 Dose: Not Given Methylprednisolone (Solu-Medrol) 40 mg IVP Q12 [facility] Last Admin: 02/24/17 21:36 Dose: 40 mg Metoprolol Tartrate (Lopressor) 25 mg PO BID [facility] Last Admin: 02/24/17 17:53 Dose: 25 mg Midodrine (Proamatine) 5 mg PO TID [facility] Last Admin: 02/24/17 17:53 Dose: 5 mg Fluticasone/Salmeterol (Advair Diskus 250/50) 1 puff INH RBID [facility] Last Admin: 02/25/17 07:09 Dose: Not Given Sevelamer Carbonate (Renvela) 800 mg PO TID [facility] Last Admin: 02/24/17 17:53 Dose: 800 mg Silver Sulfadiazine (Silvadene 1% 20 Gm) 0 ea TOP QSHIFT [facility] Last Admin: 02/25/17 05:23 Dose: 1 applic - Labs Labs: 02/25/17 07:20 02/25/17 07:20 - Constitutional Appears: Chronically Ill - Head Exam Head Exam: ATRAUMATIC, NORMAL INSPECTION - Eye Exam Eye Exam: Normal appearance. absent: Conjunctival injection, Scleral icterus - ENT Exam ENT Exam: Mucous Membranes Dry - Respiratory Exam Respiratory Exam: NORMAL BREATHING PATTERN. absent: Accessory Muscle Use, Rales , Rhonchi, Wheezes, Respiratory Distress - Cardiovascular Exam Cardiovascular Exam: Irregular Rhythm, +S1, +S2. absent: Bradycardia, Tachycardia - GI/Abdominal Exam GI & Abdominal Exam: Soft, Normal Bowel Sounds. absent: Tenderness - Extremities Exam Extremities Exam: Normal Inspection. absent: Pedal Edema - Neurological Exam Neurological Exam: Alert, Awake. absent: Oriented x3 - Psychiatric Exam Psychiatric exam: Flat Affect - Skin Skin Exam: Dry, Intact Assessment and Plan - Assessment and Plan (Free Text) Assessment: 76 yo [place] F PMHx A-fib on eliquis, CAD, ESRD on HD MWF, HTN, DM, and HLD presented to ER with increased dyspnea in need of emergent dialysis on 02/16. Cardiology consulted for rapid A-fib Plan: -Patient for HD today -Current rate controlled Afib 60-70bpm -Hx of Afib with CHADS2-VASC score : 7 points Eliquis 2.5mg po bid -EKG 02/18: Atrial fibrillation with possible RVH and ST and T wave abnl; HR 99bpm -EKG 02/16: Atrial fibrillation with possible RVH and nonspecific ST and T wave abnl; HR 84bpm -Patient has hx of CAD s/p PCI and CABG -Cardiac cath on last admission 02/11 showed L Main: proximal 30% LAD: Mid 100% but MORILLO to LAD patent L Cx:Proximal 90% but SVG to OM1 and OM2 patent RCA: Ostial 50% with good RYAN 3 flow EF: 60%, EDP 19, No AV gradient Grafts are patent -Echo 02/09: Normal overall LV systolic function with paradoxical septal motion LA volume index is markedly dilated. RA size severely dilated. Systolic function is severely reduced. RV is severely dilated. Severe pulmonary HTN. -Lipid panel on last admission WNL TG 46 Cholesterol 81 LDL < 30 HDL 53 -Continue current management Digoxin 0.125mg po daily digoxin level: 1.5 on 02/22 Amiodarone 200mg po daily Pletal 100mg po bid Midodrine 5mg po tid Lopressor 25mg po bid Eliquis 2.5mg po bid Case discussed with Dr. Gabbi Trevino PGY2
[2017-02-25] MEDS: Epoetin Alfa 10,000 unit/ml Dialysis IV SCH (09:59)
[2017-02-25] MEDS: Cilostazol 100 mg Tab UD PO SCH ×3 (10:55→17:15)
[2017-02-25] MEDS: MethylPREDNISolone 40 mg Vial IVP SCH ×3 (10:55→22:04)
--- NOTE | 2017-02-25 15:16 | CP.PCM.PN ---
Subjective - Date & Time of Evaluation Date of Evaluation: 02/25/17 Time of Evaluation: 13:40 - Subjective Subjective: no complaints 2 kg uf on HD ate all of lunch at bedside still weak, unable to walk on her own no fever anuric no rash no chest pain not sob no vomiting appetite fair ? depression Objective - Vital Signs/Intake and Output Vital Signs (last 24 hours): Temp Pulse Resp BP Pulse Ox 91 F L 73 20 86/43 L 91 L 02/25/17 13:50 02/25/17 13:50 02/25/17 13:50 02/25/17 13:50 02/25/17 13:50 Intake and Output: 02/25/17 02/25/17 06:59 18:59 Intake Total 550 Balance 550 - Medications Medications: Current Medications Acetaminophen (Tylenol 325mg Tab) 650 mg PO Q4 PRN PRN Reason: Pain, Mild (1-3) Albuterol/Ipratropium (Duoneb 3 Mg/0.5 Mg (3 Ml) Ud) 3 ml INH RQ6 [facility] Last Admin: 02/25/17 13:19 Dose: Not Given Amiodarone HCl (Cordarone) 200 mg PO DAILY [facility] Last Admin: 02/25/17 14:03 Dose: 200 mg Apixaban (Eliquis) 2.5 mg PO BID [facility] Last Admin: 02/25/17 14:03 Dose: 2.5 mg Cilostazol (Pletal) 100 mg PO BID [facility] Last Admin: 02/25/17 14:03 Dose: 100 mg Digoxin (Lanoxin) 0.125 mg PO DAILY@1800 [facility] Last Admin: 02/24/17 17:53 Dose: 0.125 mg Epoetin Sj (Procrit) 10,000 unit IV MWF [facility] Last Admin: 02/25/17 09:59 Dose: 10,000 unit Famotidine (Pepcid) 20 mg PO DAILY [facility] Last Admin: 02/25/17 14:03 Dose: 20 mg Azithromycin 500 mg/ Sodium (Chloride) 250 mls @ 250 mls/hr IVPB Q24H [facility] Last Admin: 02/24/17 21:35 Dose: 250 mls/hr Ceftriaxone Sodium 1 gm/ (Sodium Chloride) 100 mls @ 100 mls/hr IVPB Q24H [facility] Last Admin: 02/24/17 19:59 Dose: 100 mls/hr Insulin Aspart (Novolog) 0 unit SC ACHS [facility] PRN Reason: Protocol Last Admin: 02/25/17 14:02 Dose: 4 unit Insulin Glargine (Lantus) 25 unit SC Q12H [facility] Last Admin: 02/25/17 05:19 Dose: Not Given Methylprednisolone (Solu-Medrol) 40 mg IVP Q12 [facility] Last Admin: 02/25/17 14:02 Dose: 40 mg Metoprolol Tartrate (Lopressor) 25 mg PO BID [facility] Last Admin: 02/25/17 10:55 Dose: Not Given Midodrine (Proamatine) 5 mg PO TID [facility] Last Admin: 02/25/17 15:00 Dose: 5 mg Fluticasone/Salmeterol (Advair Diskus 250/50) 1 puff INH RBID [facility] Last Admin: 02/25/17 07:09 Dose: Not Given Sevelamer Carbonate (Renvela) 800 mg PO TID [facility] Last Admin: 02/25/17 14:02 Dose: 800 mg Silver Sulfadiazine (Silvadene 1% 20 Gm) 0 ea TOP QSHIFT [facility] Last Admin: 02/25/17 05:23 Dose: 1 applic - Labs Labs: 02/25/17 07:20 02/25/17 07:20 - Constitutional Appears: Confused, Chronically Ill - Head Exam Head Exam: ATRAUMATIC - Eye Exam Eye Exam: EOMI, Normal appearance - ENT Exam ENT Exam: Mucous Membranes Moist - Neck Exam Neck Exam: Full ROM. absent: Lymphadenopathy - Respiratory Exam Respiratory Exam: Decreased Breath Sounds. absent: Accessory Muscle Use - Cardiovascular Exam Cardiovascular Exam: Irregular Rhythm, REGULAR RHYTHM - GI/Abdominal Exam GI & Abdominal Exam: Distended, Soft. absent: Tenderness - Extremities Exam Extremities Exam: Pedal Edema Assessment and Plan - Assessment and Plan (Free Text) Assessment: esrd dm htn ischemic cardiomyopathy afib flat affect continue cardiac meds and maint HD aggressive rehab
--- NOTE | 2017-02-25 16:40 | CP.PCM.PN ---
Subjective - Date & Time of Evaluation Date of Evaluation: 02/25/17 Time of Evaluation: 16:40 Objective - Vital Signs/Intake and Output Vital Signs (last 24 hours): Temp Pulse Resp BP Pulse Ox 97.9 F 74 20 115/68 95 02/25/17 15:43 02/25/17 16:09 02/25/17 15:43 02/25/17 15:43 02/25/17 15:43 Intake and Output: 02/25/17 02/25/17 06:59 18:59 Intake Total 550 260 Balance 550 260 - Medications Medications: Current Medications Acetaminophen (Tylenol 325mg Tab) 650 mg PO Q4 PRN PRN Reason: Pain, Mild (1-3) Albuterol/Ipratropium (Duoneb 3 Mg/0.5 Mg (3 Ml) Ud) 3 ml INH RQ6 [facility] Last Admin: 02/25/17 13:19 Dose: Not Given Amiodarone HCl (Cordarone) 200 mg PO DAILY [facility] Last Admin: 02/25/17 14:03 Dose: 200 mg Apixaban (Eliquis) 2.5 mg PO BID [facility] Last Admin: 02/25/17 14:03 Dose: 2.5 mg Cilostazol (Pletal) 100 mg PO BID [facility] Last Admin: 02/25/17 14:03 Dose: 100 mg Digoxin (Lanoxin) 0.125 mg PO DAILY@1800 [facility] Last Admin: 02/24/17 17:53 Dose: 0.125 mg Epoetin Sj (Procrit) 4,000 unit IV MWF [facility] Famotidine (Pepcid) 20 mg PO DAILY [facility] Last Admin: 02/25/17 14:03 Dose: 20 mg Azithromycin 500 mg/ Sodium (Chloride) 250 mls @ 250 mls/hr IVPB Q24H [facility] Last Admin: 02/24/17 21:35 Dose: 250 mls/hr Ceftriaxone Sodium 1 gm/ (Sodium Chloride) 100 mls @ 100 mls/hr IVPB Q24H [facility] Last Admin: 02/24/17 19:59 Dose: 100 mls/hr Insulin Aspart (Novolog) 0 unit SC ACHS [facility] PRN Reason: Protocol Last Admin: 02/25/17 14:02 Dose: 4 unit Insulin Glargine (Lantus) 25 unit SC Q12H [facility] Last Admin: 02/25/17 05:19 Dose: Not Given Methylprednisolone (Solu-Medrol) 40 mg IVP Q12 [facility] Last Admin: 02/25/17 14:02 Dose: 40 mg Metoprolol Tartrate (Lopressor) 25 mg PO BID [facility] Last Admin: 02/25/17 10:55 Dose: Not Given Midodrine (Proamatine) 5 mg PO TID [facility] Last Admin: 02/25/17 15:00 Dose: 5 mg Fluticasone/Salmeterol (Advair Diskus 250/50) 1 puff INH RBID [facility] Last Admin: 02/25/17 07:09 Dose: Not Given Sevelamer Carbonate (Renvela) 800 mg PO TID [facility] Last Admin: 02/25/17 14:02 Dose: 800 mg Silver Sulfadiazine (Silvadene 1% 20 Gm) 0 ea TOP QSHIFT [facility] Last Admin: 02/25/17 05:23 Dose: 1 applic - Labs Labs: 02/25/17 07:20 02/25/17 07:20
[2017-02-25] MEDS: Digoxin 125 mcg (0.125 mg) Tab PO SCH (17:15)
--- NOTE | 2017-02-25 17:44 | CP.PCM.PN ---
Subjective - Date & Time of Evaluation Date of Evaluation: 02/25/17 Time of Evaluation: 11:40 - Subjective Subjective: clinically same Objective - Vital Signs/Intake and Output Vital Signs (last 24 hours): Temp Pulse Resp BP Pulse Ox 97.9 F 74 20 105/57 L 95 02/25/17 15:43 02/25/17 16:09 02/25/17 15:43 02/25/17 17:16 02/25/17 15:43 Intake and Output: 02/25/17 02/25/17 06:59 18:59 Intake Total 550 260 Balance 550 260 - Medications Medications: Current Medications Acetaminophen (Tylenol 325mg Tab) 650 mg PO Q4 PRN PRN Reason: Pain, Mild (1-3) Albuterol/Ipratropium (Duoneb 3 Mg/0.5 Mg (3 Ml) Ud) 3 ml INH RQ6 [facility] Last Admin: 02/25/17 13:19 Dose: Not Given Amiodarone HCl (Cordarone) 200 mg PO DAILY [facility] Last Admin: 02/25/17 14:03 Dose: 200 mg Apixaban (Eliquis) 2.5 mg PO BID [facility] Last Admin: 02/25/17 17:16 Dose: 2.5 mg Cilostazol (Pletal) 100 mg PO BID [facility] Last Admin: 02/25/17 17:15 Dose: 100 mg Digoxin (Lanoxin) 0.125 mg PO DAILY@1800 [facility] Last Admin: 02/25/17 17:15 Dose: 0.125 mg Epoetin Sj (Procrit) 4,000 unit IV MWF [facility] Famotidine (Pepcid) 20 mg PO DAILY [facility] Last Admin: 02/25/17 14:03 Dose: 20 mg Azithromycin 500 mg/ Sodium (Chloride) 250 mls @ 250 mls/hr IVPB Q24H [facility] Last Admin: 02/24/17 21:35 Dose: 250 mls/hr Ceftriaxone Sodium 1 gm/ (Sodium Chloride) 100 mls @ 100 mls/hr IVPB Q24H [facility] Last Admin: 02/24/17 19:59 Dose: 100 mls/hr Insulin Aspart (Novolog) 0 unit SC ACHS [facility] PRN Reason: Protocol Last Admin: 02/25/17 17:16 Dose: 8 unit Insulin Glargine (Lantus) 25 unit SC Q12H [facility] Last Admin: 02/25/17 17:16 Dose: 25 units Methylprednisolone (Solu-Medrol) 40 mg IVP Q12 [facility] Last Admin: 02/25/17 14:02 Dose: 40 mg Metoprolol Tartrate (Lopressor) 25 mg PO BID [facility] Last Admin: 02/25/17 17:16 Dose: Not Given Midodrine (Proamatine) 5 mg PO TID [facility] Last Admin: 02/25/17 17:15 Dose: 5 mg Fluticasone/Salmeterol (Advair Diskus 250/50) 1 puff INH RBID [facility] Last Admin: 02/25/17 07:09 Dose: Not Given Sevelamer Carbonate (Renvela) 800 mg PO TID [facility] Last Admin: 02/25/17 17:16 Dose: 800 mg Silver Sulfadiazine (Silvadene 1% 20 Gm) 0 ea TOP QSHIFT [facility] Last Admin: 02/25/17 14:02 Dose: 1 applic - Labs Labs: 02/25/17 07:20 02/25/17 07:20 - Constitutional Appears: Well - Head Exam Head Exam: ATRAUMATIC, NORMAL INSPECTION, NORMOCEPHALIC - Eye Exam Eye Exam: EOMI, Normal appearance, PERRL Pupil Exam: NORMAL ACCOMODATION, PERRL - ENT Exam ENT Exam: Mucous Membranes Moist, Normal Exam - Neck Exam Neck Exam: Full ROM, Normal Inspection. absent: Lymphadenopathy - Respiratory Exam Respiratory Exam: Decreased Breath Sounds - Cardiovascular Exam Cardiovascular Exam: REGULAR RHYTHM, +S1, +S2 - GI/Abdominal Exam GI & Abdominal Exam: Soft, Diminished Bowel Sounds - Rectal Exam Rectal Exam: Deferred
[2017-02-25] MEDS: Azithromycin 500 MG in Sodium Chloride 0.9% 250 ML IVPB SCH (22:04)
[2017-02-26] MEDS: Albuterol-Ipratrop 3 mg / 0.5 (3 ml) UD INH SCH ×4 (01:39→20:52)
[2017-02-26] MEDS: (Lantus) Insulin Glargine, Recombinant SC SCH ×2 (05:57→17:08)
[2017-02-26] MEDS: Silver Sulfadiazine 1% Cream (20 gm) TOP SCH ×3 (05:57→21:12)
--- NOTE | 2017-02-26 07:29 | CP.PCM.PN ---
Subjective - Date & Time of Evaluation Date of Evaluation: 02/26/17 Time of Evaluation: 08:15 - Subjective Subjective: Cardiology progress note for Dr. Seo Patient seen and examined at bedside. Patient was receiving nebulizer treatment this AM with Respiratory at time of examination. She had HD yesterday 02/25 and seemed more awake this AM. Patient denied acute complaints of headache, dizziness, chest pain, SOB, cough, abdominal pain, pain/swelling in her legs bilaterally. As per nursing patient had no acute events overnight and afib has been rate controlled. Objective - Vital Signs/Intake and Output Vital Signs (last 24 hours): Temp Pulse Resp BP Pulse Ox 97.8 F 75 20 104/52 L 95 02/26/17 00:00 02/26/17 00:00 02/26/17 00:00 02/26/17 00:00 02/26/17 00:00 Intake and Output: 02/26/17 02/26/17 06:59 18:59 Intake Total 600 Balance 600 - Medications Medications: Current Medications Acetaminophen (Tylenol 325mg Tab) 650 mg PO Q4 PRN PRN Reason: Pain, Mild (1-3) Albuterol/Ipratropium (Duoneb 3 Mg/0.5 Mg (3 Ml) Ud) 3 ml INH RQ6 [facility] Last Admin: 02/26/17 01:39 Dose: 3 ml Amiodarone HCl (Cordarone) 200 mg PO DAILY [facility] Last Admin: 02/25/17 14:03 Dose: 200 mg Apixaban (Eliquis) 2.5 mg PO BID [facility] Last Admin: 02/25/17 17:16 Dose: 2.5 mg Cilostazol (Pletal) 100 mg PO BID [facility] Last Admin: 02/25/17 17:15 Dose: 100 mg Digoxin (Lanoxin) 0.125 mg PO DAILY@1800 [facility] Last Admin: 02/25/17 17:15 Dose: 0.125 mg Epoetin Sj (Procrit) 4,000 unit IV MWF [facility] Famotidine (Pepcid) 20 mg PO DAILY [facility] Last Admin: 02/25/17 14:03 Dose: 20 mg Azithromycin 500 mg/ Sodium (Chloride) 250 mls @ 250 mls/hr IVPB Q24H [facility] Last Admin: 02/25/17 22:04 Dose: 250 mls/hr Ceftriaxone Sodium 1 gm/ (Sodium Chloride) 100 mls @ 100 mls/hr IVPB Q24H [facility] Last Admin: 02/25/17 20:23 Dose: 100 mls/hr Insulin Aspart (Novolog) 0 unit SC ACHS [facility] PRN Reason: Protocol Last Admin: 02/25/17 22:04 Dose: Not Given Insulin Glargine (Lantus) 25 unit SC Q12H [facility] Last Admin: 02/26/17 05:57 Dose: Not Given Methylprednisolone (Solu-Medrol) 40 mg IVP Q12 [facility] Last Admin: 02/25/17 22:04 Dose: 40 mg Metoprolol Tartrate (Lopressor) 25 mg PO BID [facility] Last Admin: 02/25/17 17:16 Dose: Not Given Midodrine (Proamatine) 5 mg PO TID [facility] Last Admin: 02/25/17 17:15 Dose: 5 mg Fluticasone/Salmeterol (Advair Diskus 250/50) 1 puff INH RBID [facility] Last Admin: 02/25/17 19:47 Dose: 1 puff Sevelamer Carbonate (Renvela) 800 mg PO TID [facility] Last Admin: 02/25/17 17:16 Dose: 800 mg Silver Sulfadiazine (Silvadene 1% 20 Gm) 0 ea TOP QSHIFT [facility] Last Admin: 02/26/17 05:57 Dose: 1 applic - Labs Labs: 02/25/17 07:20 02/25/17 07:20 - Constitutional Appears: Non-toxic, No Acute Distress, Chronically Ill - Head Exam Head Exam: ATRAUMATIC, NORMOCEPHALIC - Eye Exam Eye Exam: EOMI, Normal appearance. absent: Conjunctival injection, Scleral icterus - ENT Exam ENT Exam: Mucous Membranes Dry - Respiratory Exam Respiratory Exam: Clear to Ausculation Bilateral, NORMAL BREATHING PATTERN. absent: Accessory Muscle Use, Rales, Rhonchi, Wheezes, Respiratory Distress - Cardiovascular Exam Cardiovascular Exam: Irregular Rhythm, +S1, +S2. absent: Bradycardia, Tachycardia - GI/Abdominal Exam GI & Abdominal Exam: Soft, Normal Bowel Sounds. absent: Tenderness - Extremities Exam Extremities Exam: Normal Inspection. absent: Pedal Edema - Neurological Exam Neurological Exam: Alert, Awake, Oriented x3 - Psychiatric Exam Psychiatric exam: Flat Affect, Normal Mood - Skin Skin Exam: Dry, Intact, Normal Color, Warm Assessment and Plan - Assessment and Plan (Free Text) Assessment: 76 yo [place] female PMHx A-fib on eliquis, CAD, ESRD on HD MWF, HTN, DM, and HLD presented to ER with increased dyspnea in need of emergent dialysis on . Cardiology consulted for rapid A-fib Plan: -Patient Afib has been rate controlled 60-90bpm -Hx of Afib with CHADS2-VASC score : 7 points Eliquis 2.5mg po bid -EKG 02/18: Atrial fibrillation with possible RVH and ST and T wave abnl; HR 99bpm -EKG 02/16: Atrial fibrillation with possible RVH and nonspecific ST and T wave abnl; HR 84bpm -Patient has hx of CAD s/p PCI and CABG -Cardiac cath on last admission 02/11 showed L Main: proximal 30% LAD: Mid 100% but MORILLO to LAD patent L Cx:Proximal 90% but SVG to OM1 and OM2 patent RCA: Ostial 50% with good RYAN 3 flow EF: 60%, EDP 19, No AV gradient Grafts are patent -Echo 02/09: Normal overall LV systolic function with paradoxical septal motion LA volume index is markedly dilated. RA size severely dilated. Systolic function is severely reduced. RV is severely dilated. Severe pulmonary HTN. -Lipid panel on last admission WNL TG 46 Cholesterol 81 LDL < 30 HDL 53 -Digoxin 0.125mg po daily digoxin level: 1.5 on 02/22 -Amiodarone 200mg po daily -Pletal 100mg po bid -Midodrine 5mg po tid -Lopressor 25mg po bid -Eliquis 2.5mg po bid Please continue current management Cardiology will sign off at this time Thank you for the consult; please reconsult if necessary Case discussed with Dr. Gabbi Trevino PGY2
[2017-02-26 07:41] LABS: BASO % 0.1 % (0.0-2.0); HEMOGLOBIN 11.5 g/dL (11.0-16.0); LYMPH # 0.2 K/uL (1.0-4.3); MEAN CORPUSCULAR HEMOGLOBIN 32.2 pg (27.0-31.0); MEAN CORPUSCULAR HGB CONC 32.2 g/dL (33.0-37.0); MEAN PLATELET VOLUME 8.4 fL (7.2-11.7); MONO # 0.4 K/uL (0.0-0.8); MONO % 5.3 % (0.0-10.0); NEUT # 7.3 K/uL (1.8-7.0); NEUT % 92.6 % (50.0-75.0); NRBC % 7.5 % (0.0-2.0); PLATELET COUNT 211 K/uL (130-400); RBC 3.57 Mil/uL (3.80-5.20); WHITE BLOOD COUNT 7.9 K/uL (4.8-10.8)
[2017-02-26] MEDS: (Novolog) Insulin Aspart, Recombinant 100 u/ml 10 ml vial SC SCH ×4 (07:55→22:09)
[2017-02-26 07:59] LABS: ALBUMIN 3.1 g/dL (3.5-5.0)
[2017-02-26 08:02] LABS: ALB/GLOB RATIO 1.3 (1.0-2.1)
[2017-02-26 08:03] LABS: CALCIUM 10.2 mg/dl (8.6-10.4)
[2017-02-26] MEDS: Fluticasone-Salmeterol 250-50mcg Diskus INH SCH ×2 (08:04→20:52)
[2017-02-26 08:45] LABS: ANISOCYTOSIS SLIGHT; BANDS 1 % (0-2); HYPOCHROMIC SLIGHT; LYMPHOCYTE 4 % (20-40); MONOCYTE 6 % (0-10); NEUTROPHIL 89 % (50-75); NUCLEATED RED BLOOD CELL 7 % (0-0); PLATELET ESTIMATE NORMAL (NORMAL); POIKILOCYTOSIS SLIGHT; TOTAL CELLS COUNTED 100
[2017-02-26 08:46] LABS: MICROCYTOSIS SLIGHT; OVALOCYTES SLIGHT; POLYCHROMIC SLIGHT; TARGET CELLS SLIGHT
[2017-02-26] MEDS: MethylPREDNISolone 40 mg Vial IVP SCH ×2 (09:52→21:12)
[2017-02-26] MEDS: Cilostazol 100 mg Tab UD PO SCH ×2 (09:53→17:09)
--- NOTE | 2017-02-26 11:06 | CP.PCM.PN ---
Subjective - Date & Time of Evaluation Date of Evaluation: 02/26/17 Time of Evaluation: 11:03 - Subjective Subjective: Stable dialysis 02/25- UF 2500ml BP controlled VR- 90-100s Feels better; less dyspneic; no CPs Still rather weak, not ambulating No n, v, d, f, chills Objective - Vital Signs/Intake and Output Vital Signs (last 24 hours): Temp Pulse Resp BP Pulse Ox 97.3 F L 86 19 91/54 L 99 02/26/17 08:27 02/26/17 09:51 02/26/17 08:27 02/26/17 09:53 02/26/17 08:27 Intake and Output: 02/26/17 02/26/17 06:59 18:59 Intake Total 600 Balance 600 - Medications Medications: Current Medications Acetaminophen (Tylenol 325mg Tab) 650 mg PO Q4 PRN PRN Reason: Pain, Mild (1-3) Albuterol/Ipratropium (Duoneb 3 Mg/0.5 Mg (3 Ml) Ud) 3 ml INH RQ6 [facility] Last Admin: 02/26/17 08:04 Dose: 3 ml Amiodarone HCl (Cordarone) 200 mg PO DAILY [facility] Last Admin: 02/26/17 09:53 Dose: 200 mg Apixaban (Eliquis) 2.5 mg PO BID [facility] Last Admin: 02/26/17 09:53 Dose: 2.5 mg Cilostazol (Pletal) 100 mg PO BID [facility] Last Admin: 02/26/17 09:53 Dose: 100 mg Digoxin (Lanoxin) 0.125 mg PO DAILY@1800 [facility] Last Admin: 02/25/17 17:15 Dose: 0.125 mg Epoetin Sj (Procrit) 4,000 unit IV MWF [facility] Famotidine (Pepcid) 20 mg PO DAILY [facility] Last Admin: 02/26/17 09:53 Dose: 20 mg Azithromycin 500 mg/ Sodium (Chloride) 250 mls @ 250 mls/hr IVPB Q24H [facility] Last Admin: 02/25/17 22:04 Dose: 250 mls/hr Ceftriaxone Sodium 1 gm/ (Sodium Chloride) 100 mls @ 100 mls/hr IVPB Q24H [facility] Last Admin: 02/25/17 20:23 Dose: 100 mls/hr Insulin Aspart (Novolog) 0 unit SC [facility] PRN Reason: Protocol Last Admin: 02/26/17 07:55 Dose: Not Given Insulin Glargine (Lantus) 25 unit SC Q12H [facility] Last Admin: 02/26/17 05:57 Dose: Not Given Methylprednisolone (Solu-Medrol) 40 mg IVP Q12 [facility] Last Admin: 02/26/17 09:52 Dose: 40 mg Metoprolol Tartrate (Lopressor) 25 mg PO BID [facility] Last Admin: 02/26/17 09:53 Dose: Not Given Midodrine (Proamatine) 5 mg PO TID [facility] Last Admin: 02/26/17 09:52 Dose: 5 mg Fluticasone/Salmeterol (Advair Diskus 250/50) 1 puff INH RBID [facility] Last Admin: 02/26/17 08:04 Dose: 1 puff Sevelamer Carbonate (Renvela) 800 mg PO TID [facility] Last Admin: 02/26/17 09:52 Dose: 800 mg Silver Sulfadiazine (Silvadene 1% 20 Gm) 0 ea TOP QSHIFT [facility] Last Admin: 02/26/17 05:57 Dose: 1 applic - Labs Labs: 02/26/17 07:19 02/26/17 07:19 - Constitutional Appears: No Acute Distress, Chronically Ill - Head Exam Head Exam: ATRAUMATIC, NORMAL INSPECTION - Eye Exam Eye Exam: EOMI, Normal appearance - Neck Exam Neck Exam: Normal Inspection. absent: Tenderness - Respiratory Exam Respiratory Exam: Rales, NORMAL BREATHING PATTERN - Cardiovascular Exam Cardiovascular Exam: Irregular Rhythm, +S1 - GI/Abdominal Exam GI & Abdominal Exam: Soft. absent: Tenderness - Extremities Exam Extremities Exam: Normal Inspection. absent: Tenderness - Neurological Exam Neurological Exam: Awake, CN II-XII Intact - Skin Skin Exam: Dry, Warm Assessment and Plan (1) ESRD (end stage renal disease) on dialysis Status: Chronic (2) Afib Status: Acute (3) CAD (coronary artery disease) of artery bypass graft Status: Acute (4) Congestive heart failure Status: Acute (5) Ischemic cardiomyopathy Status: Acute - Assessment and Plan (Free Text) Plan: Same rate control meds HD MWF with aggressive UF Stop IV ABs
[2017-02-26] MEDS: Digoxin 125 mcg (0.125 mg) Tab PO SCH (17:09)
--- NOTE | 2017-02-26 18:30 | CP.PCM.PN ---
Subjective - Date & Time of Evaluation Date of Evaluation: 02/26/17 Time of Evaluation: 18:30 Objective - Vital Signs/Intake and Output Vital Signs (last 24 hours): Temp Pulse Resp BP Pulse Ox 98.2 F 84 20 103/61 95 02/26/17 15:50 02/26/17 16:48 02/26/17 15:50 02/26/17 17:09 02/26/17 15:50 Intake and Output: 02/26/17 02/26/17 06:59 18:59 Intake Total 600 260 Balance 600 260 - Medications Medications: Current Medications Acetaminophen (Tylenol 325mg Tab) 650 mg PO Q4 PRN PRN Reason: Pain, Mild (1-3) Albuterol/Ipratropium (Duoneb 3 Mg/0.5 Mg (3 Ml) Ud) 3 ml INH RQ6 [facility] Last Admin: 02/26/17 13:39 Dose: 3 ml Amiodarone HCl (Cordarone) 200 mg PO DAILY [facility] [place] Last Admin: 02/26/17 09:53 Dose: 200 mg Apixaban (Eliquis) 2.5 mg PO BID [facility] Last Admin: 02/26/17 17:09 Dose: 2.5 mg Cilostazol (Pletal) 100 mg PO BID [facility] [place] Last Admin: 02/26/17 17:09 Dose: 100 mg Digoxin (Lanoxin) 0.125 mg PO DAILY@1800 [facility] [place] Last Admin: 02/26/17 17:09 Dose: 0.125 mg Epoetin Sj (Procrit) 4,000 unit IV MWF [facility] [place] Famotidine (Pepcid) 20 mg PO DAILY [facility] [place] Last Admin: 02/26/17 09:53 Dose: 20 mg Insulin Aspart (Novolog) 0 unit SC ACHS [facility] [place] PRN Reason: Protocol Last Admin: 02/26/17 17:08 Dose: 12 unit Insulin Glargine (Lantus) 25 unit SC Q12H [facility] [place] Last Admin: 02/26/17 17:08 Dose: 25 units Methylprednisolone (Solu-Medrol) 40 mg IVP Q12 [facility] [place] Last Admin: 02/26/17 09:52 Dose: 40 mg Metoprolol Tartrate (Lopressor) 25 mg PO BID [facility] Last Admin: 02/26/17 17:09 Dose: Not Given Midodrine (Proamatine) 5 mg PO TID [facility] [place] Last Admin: 02/26/17 17:09 Dose: 5 mg Fluticasone/Salmeterol (Advair Diskus 250/50) 1 puff INH RBID [facility] [place] Last Admin: 02/26/17 08:04 Dose: 1 puff Sevelamer Carbonate (Renvela) 800 mg PO TID [facility] [place] Last Admin: 02/26/17 17:09 Dose: 800 mg Silver Sulfadiazine (Silvadene 1% 20 Gm) 0 ea TOP QSHIFT [facility] Last Admin: 02/26/17 13:39 Dose: 1 applic - Labs Labs: 02/26/17 07:19 02/26/17 07:19
[2017-02-27] MEDS: Albuterol-Ipratrop 3 mg / 0.5 (3 ml) UD INH SCH ×2 (01:05→07:47)
[2017-02-27] MEDS: (Lantus) Insulin Glargine, Recombinant SC SCH ×2 (06:39→17:56)
[2017-02-27] MEDS: Silver Sulfadiazine 1% Cream (20 gm) TOP SCH ×3 (06:41→21:41)
[2017-02-27 07:45] LABS: BASO % 0.2 % (0.0-2.0); HEMOGLOBIN 10.9 g/dL (11.0-16.0); LYMPH # 0.2 K/uL (1.0-4.3); LYMPH % 1.9 % (20.0-40.0); MEAN CELL VOLUME 99.8 fL (81.0-99.0); MEAN CORPUSCULAR HEMOGLOBIN 32.2 pg (27.0-31.0); MEAN CORPUSCULAR HGB CONC 32.3 g/dL (33.0-37.0); MEAN PLATELET VOLUME 9.1 fL (7.2-11.7); MONO # 0.5 K/uL (0.0-0.8); MONO % 4.9 % (0.0-10.0); NEUT # 8.6 K/uL (1.8-7.0); NRBC % 6.8 % (0.0-2.0); PLATELET COUNT 201 K/uL (130-400); RBC 3.38 Mil/uL (3.80-5.20); RED CELL DISTRIBUTION WIDTH 16.9 % (11.5-14.5); WHITE BLOOD COUNT 9.3 K/uL (4.8-10.8)
[2017-02-27] MEDS: Fluticasone-Salmeterol 250-50mcg Diskus INH SCH ×2 (07:48→20:34)
[2017-02-27 07:58] LABS: ALBUMIN 3.1 g/dL (3.5-5.0)
[2017-02-27 08:01] LABS: ALB/GLOB RATIO 1.3 (1.0-2.1)
[2017-02-27] MEDS: (Novolog) Insulin Aspart, Recombinant 100 u/ml 10 ml vial SC SCH ×4 (08:49→21:40)
[2017-02-27] MEDS ORDERED: EPOETIN ALFA 4,000 UNIT/ML ML Dialysis IV SCH (09:00)
[2017-02-27 09:04] LABS: ANISOCYTOSIS SLIGHT; BANDS 2 % (0-2); LYMPHOCYTE 2 % (20-40); MONOCYTE 3 % (0-10); NEUTROPHIL 93 % (50-75); NUCLEATED RED BLOOD CELL 3 % (0-0); PLATELET ESTIMATE NORMAL (NORMAL); POIKILOCYTOSIS SLIGHT; TOTAL CELLS COUNTED 100
[2017-02-27 09:05] LABS: BURR CELLS SLIGHT; HYPOCHROMIC SLIGHT; MICROCYTOSIS SLIGHT; OVALOCYTES SLIGHT; POLYCHROMIC SLIGHT
[2017-02-27] MEDS: MethylPREDNISolone 40 mg Vial IVP SCH ×2 (10:30→21:41)
[2017-02-27] MEDS: Cilostazol 100 mg Tab UD PO SCH ×2 (10:30→17:57)
--- NOTE | 2017-02-27 13:59 | CP.PCM.PN ---
Subjective - Date & Time of Evaluation Date of Evaluation: 02/27/17 Time of Evaluation: 13:55 - Subjective Subjective: Stable dialysis now- UF 2500ml Less dyspneic, more alert VR- 70s now BP reasonable- around 110 systolic No new complaints No CPs, n, v, d, HAs, f, chills Objective - Vital Signs/Intake and Output Vital Signs (last 24 hours): Temp Pulse Resp BP Pulse Ox 97.7 F 83 18 107/58 L 95 02/27/17 09:55 02/27/17 09:55 02/27/17 09:55 02/27/17 12:55 02/27/17 09:55 Intake and Output: 02/27/17 02/27/17 06:59 18:59 Intake Total 300 Balance 300 - Medications Medications: Current Medications Acetaminophen (Tylenol 325mg Tab) 650 mg PO Q4 PRN PRN Reason: Pain, Mild (1-3) Amiodarone HCl (Cordarone) 200 mg PO DAILY [facility] Last Admin: 02/26/17 09:53 Dose: 200 mg Apixaban (Eliquis) 2.5 mg PO BID [facility] Last Admin: 02/27/17 10:30 Dose: Not Given Cilostazol (Pletal) 100 mg PO BID [facility] Last Admin: 02/27/17 10:30 Dose: Not Given Digoxin (Lanoxin) 0.125 mg PO DAILY@1800 [facility] Last Admin: 02/26/17 17:09 Dose: 0.125 mg Epoetin Sj (Procrit) 4,000 unit IV MWF [facility] Last Admin: 02/27/17 10:22 Dose: 4,000 unit Famotidine (Pepcid) 20 mg PO DAILY [facility] Last Admin: 02/26/17 09:53 Dose: 20 mg Insulin Aspart (Novolog) 0 unit SC ACHS [facility] PRN Reason: Protocol Last Admin: 02/27/17 12:24 Dose: Not Given Insulin Glargine (Lantus) 25 unit SC Q12H [facility] Last Admin: 02/27/17 06:39 Dose: 25 units Methylprednisolone (Solu-Medrol) 40 mg IVP Q12 [facility] Last Admin: 02/27/17 10:30 Dose: Not Given Metoprolol Tartrate (Lopressor) 25 mg PO BID [facility] Last Admin: 02/27/17 10:30 Dose: Not Given Midodrine (Proamatine) 5 mg PO TID [facility] Last Admin: 02/27/17 09:49 Dose: 5 mg Fluticasone/Salmeterol (Advair Diskus 250/50) 1 puff INH RBID [facility] Last Admin: 02/27/17 07:48 Dose: Not Given Sevelamer Carbonate (Renvela) 800 mg PO TID [facility] Last Admin: 02/27/17 10:30 Dose: Not Given Silver Sulfadiazine (Silvadene 1% 20 Gm) 0 ea TOP QSHIFT [facility] Last Admin: 02/27/17 06:41 Dose: 1 applic - Labs Labs: 02/27/17 07:34 02/27/17 07:34 - Constitutional Appears: No Acute Distress, Chronically Ill - Head Exam Head Exam: ATRAUMATIC, NORMAL INSPECTION - Eye Exam Eye Exam: EOMI, Normal appearance - Neck Exam Neck Exam: Normal Inspection. absent: Tenderness - Cardiovascular Exam Cardiovascular Exam: Irregular Rhythm, +S1 - GI/Abdominal Exam GI & Abdominal Exam: Soft. absent: Tenderness - Extremities Exam Extremities Exam: Normal Inspection. absent: Tenderness - Neurological Exam Neurological Exam: Alert, CN II-XII Intact - Skin Skin Exam: Dry, Warm Assessment and Plan (1) ESRD (end stage renal disease) on dialysis Status: Chronic (2) Afib Status: Acute (3) CAD (coronary artery disease) of artery bypass graft Status: Acute (4) Congestive heart failure Status: Acute (5) Ischemic cardiomyopathy Status: Acute - Assessment and Plan (Free Text) Plan: Dialysis 4X weekly- to be arranged as outpatient Continue midodrine Same amiodarone, metoprolol
--- NOTE | 2017-02-27 15:30 | CP.PCM.PN ---
Subjective - Date & Time of Evaluation Date of Evaluation: 02/27/17 Time of Evaluation: 15:30 Objective - Vital Signs/Intake and Output Vital Signs (last 24 hours): Temp Pulse Resp BP Pulse Ox 97.1 F L 68 18 112/54 L 97 02/27/17 13:25 02/27/17 13:25 02/27/17 13:25 02/27/17 13:25 02/27/17 13:25 Intake and Output: 02/27/17 02/27/17 06:59 18:59 Intake Total 300 Balance 300 - Medications Medications: Current Medications Acetaminophen (Tylenol 325mg Tab) 650 mg PO Q4 PRN PRN Reason: Pain, Mild (1-3) Amiodarone HCl (Cordarone) 200 mg PO DAILY [facility] Last Admin: 02/27/17 14:28 Dose: Not Given Apixaban (Eliquis) 2.5 mg PO BID [facility] Last Admin: 02/27/17 10:30 Dose: Not Given Cilostazol (Pletal) 100 mg PO BID [facility] Last Admin: 02/27/17 10:30 Dose: Not Given Digoxin (Lanoxin) 0.125 mg PO DAILY@1800 [facility] Last Admin: 02/26/17 17:09 Dose: 0.125 mg Epoetin Sj (Procrit) 4,000 unit IV MWF [facility] Last Admin: 02/27/17 10:22 Dose: 4,000 unit Famotidine (Pepcid) 20 mg PO DAILY [facility] Last Admin: 02/27/17 14:26 Dose: 20 mg Insulin Aspart (Novolog) 0 unit SC ACHS [facility] PRN Reason: Protocol Last Admin: 02/27/17 12:24 Dose: Not Given Insulin Glargine (Lantus) 25 unit SC Q12H [facility] Last Admin: 02/27/17 06:39 Dose: 25 units Methylprednisolone (Solu-Medrol) 40 mg IVP Q12 [facility] Last Admin: 02/27/17 10:30 Dose: Not Given Metoprolol Tartrate (Lopressor) 25 mg PO BID [facility] Last Admin: 02/27/17 10:30 Dose: Not Given Midodrine (Proamatine) 5 mg PO TID [facility] Last Admin: 02/27/17 14:27 Dose: 5 mg Fluticasone/Salmeterol (Advair Diskus 250/50) 1 puff INH RBID [facility] Last Admin: 02/27/17 07:48 Dose: Not Given Sevelamer Carbonate (Renvela) 800 mg PO TID [facility] Last Admin: 02/27/17 14:26 Dose: 800 mg Silver Sulfadiazine (Silvadene 1% 20 Gm) 0 ea TOP QSHIFT [facility] Last Admin: 02/27/17 14:30 Dose: 1 applic - Labs Labs: 02/27/17 07:34 02/27/17 07:34
[2017-02-27 17:22] VITALS: RESP 20
--- NOTE | 2017-02-27 17:27 | CP.PCM.PN ---
Subjective - Date & Time of Evaluation Date of Evaluation: 02/27/17 Time of Evaluation: 10:00 - Subjective Subjective: clinically same Objective - Vital Signs/Intake and Output Vital Signs (last 24 hours): Temp Pulse Resp BP Pulse Ox 97.6 F 84 20 103/56 L 98 02/27/17 16:00 02/27/17 16:00 02/27/17 16:00 02/27/17 16:00 02/27/17 16:00 Intake and Output: 02/27/17 02/27/17 06:59 18:59 Intake Total 300 Balance 300 - Medications Medications: Current Medications Acetaminophen (Tylenol 325mg Tab) 650 mg PO Q4 PRN PRN Reason: Pain, Mild (1-3) Amiodarone HCl (Cordarone) 200 mg PO DAILY [facility] Last Admin: 02/27/17 14:28 Dose: Not Given Apixaban (Eliquis) 2.5 mg PO BID [facility] Last Admin: 02/27/17 10:30 Dose: Not Given Cilostazol (Pletal) 100 mg PO BID [facility] Last Admin: 02/27/17 10:30 Dose: Not Given Digoxin (Lanoxin) 0.125 mg PO DAILY@1800 [facility] Last Admin: 02/26/17 17:09 Dose: 0.125 mg Epoetin Sj (Procrit) 4,000 unit IV MWF [facility] Last Admin: 02/27/17 10:22 Dose: 4,000 unit Famotidine (Pepcid) 20 mg PO DAILY [facility] Last Admin: 02/27/17 14:26 Dose: 20 mg Insulin Aspart (Novolog) 0 unit SC ACHS [facility] PRN Reason: Protocol Last Admin: 02/27/17 12:24 Dose: Not Given Insulin Glargine (Lantus) 25 unit SC Q12H [facility] Last Admin: 02/27/17 06:39 Dose: 25 units Methylprednisolone (Solu-Medrol) 40 mg IVP Q12 [facility] Last Admin: 02/27/17 10:30 Dose: Not Given Metoprolol Tartrate (Lopressor) 25 mg PO BID [facility] Last Admin: 02/27/17 10:30 Dose: Not Given Midodrine (Proamatine) 5 mg PO TID [facility] Last Admin: 02/27/17 14:27 Dose: 5 mg Fluticasone/Salmeterol (Advair Diskus 250/50) 1 puff INH RBID [facility] Last Admin: 02/27/17 07:48 Dose: Not Given Sevelamer Carbonate (Renvela) 800 mg PO TID [facility] Last Admin: 02/27/17 14:26 Dose: 800 mg Silver Sulfadiazine (Silvadene 1% 20 Gm) 0 ea TOP QSHIFT [facility] Last Admin: 02/27/17 14:30 Dose: 1 applic - Labs Labs: 02/27/17 07:34 02/27/17 07:34 - Constitutional Appears: Well - Head Exam Head Exam: ATRAUMATIC, NORMAL INSPECTION, NORMOCEPHALIC - Eye Exam Eye Exam: EOMI, Normal appearance, PERRL Pupil Exam: NORMAL ACCOMODATION, PERRL - ENT Exam ENT Exam: Mucous Membranes Moist, Normal Exam - Neck Exam Neck Exam: Full ROM, Normal Inspection. absent: Lymphadenopathy - Respiratory Exam Respiratory Exam: Decreased Breath Sounds - Cardiovascular Exam Cardiovascular Exam: +S1, +S2 - GI/Abdominal Exam GI & Abdominal Exam: Soft, Diminished Bowel Sounds - Rectal Exam Rectal Exam: Deferred
[2017-02-27] MEDS: Digoxin 125 mcg (0.125 mg) Tab PO SCH (17:56)
[2017-02-28] MEDS: (Lantus) Insulin Glargine, Recombinant SC SCH ×2 (05:57→17:21)
[2017-02-28] MEDS: Silver Sulfadiazine 1% Cream (20 gm) TOP SCH ×2 (05:57→13:48)
--- NOTE | 2017-02-28 10:58 | CP.PCM.PN ---
Subjective - Date & Time of Evaluation Date of Evaluation: 02/28/17 Time of Evaluation: 10:55 - Subjective Subjective: presently on dialysis awake alert comfortable ROS no chills fever No chest pain sob No cough No abdomenal pain,nausea anuric no headache,dizziness no leg pain Objective - Vital Signs/Intake and Output Vital Signs (last 24 hours): Temp Pulse Resp BP Pulse Ox 98.0 F 68 20 117/50 L 100 02/28/17 07:46 02/28/17 07:46 02/28/17 07:46 02/28/17 07:46 02/28/17 07:46 - Medications Medications: Current Medications Acetaminophen (Tylenol 325mg Tab) 650 mg PO Q4 PRN PRN Reason: Pain, Mild (1-3) Amiodarone HCl (Cordarone) 200 mg PO DAILY [facility] Last Admin: 02/27/17 14:28 Dose: Not Given Cilostazol (Pletal) 100 mg PO BID [facility] Last Admin: 02/27/17 17:57 Dose: 100 mg Digoxin (Lanoxin) 0.125 mg PO DAILY@1800 [facility] Last Admin: 02/27/17 17:56 Dose: 0.125 mg Epoetin Sj (Procrit) 4,000 unit IV MWF [facility] Last Admin: 02/27/17 10:22 Dose: 4,000 unit Famotidine (Pepcid) 20 mg PO DAILY [facility] Last Admin: 02/27/17 14:26 Dose: 20 mg Insulin Aspart (Novolog) 0 unit SC ACHS [facility] PRN Reason: Protocol Last Admin: 02/27/17 21:40 Dose: Not Given Insulin Glargine (Lantus) 25 unit SC Q12H [facility] Last Admin: 02/28/17 05:57 Dose: 25 units Methylprednisolone (Solu-Medrol) 40 mg IVP Q12 [facility] Last Admin: 02/27/17 21:41 Dose: 40 mg Metoprolol Tartrate (Lopressor) 25 mg PO BID [facility] Last Admin: 02/27/17 18:03 Dose: Not Given Midodrine (Proamatine) 5 mg PO TID [facility] Last Admin: 02/27/17 17:56 Dose: 5 mg Fluticasone/Salmeterol (Advair Diskus 250/50) 1 puff INH RBID [facility] Last Admin: 07/21/17 20:34 Dose: Not Given Sevelamer Carbonate (Renvela) 800 mg PO TID [facility] Last Admin: 02/27/17 17:57 Dose: 800 mg Silver Sulfadiazine (Silvadene 1% 20 Gm) 0 ea TOP QSHIFT [facility] Last Admin: 02/28/17 05:57 Dose: 1 applic - Labs Labs: 02/27/17 07:34 02/27/17 07:34 - Constitutional Appears: Non-toxic, No Acute Distress - Head Exam Head Exam: NORMOCEPHALIC - Eye Exam Eye Exam: absent: Conjunctival injection - ENT Exam ENT Exam: Mucous Membranes Moist - Respiratory Exam Respiratory Exam: Clear to Ausculation Bilateral - Cardiovascular Exam Cardiovascular Exam: REGULAR RHYTHM - GI/Abdominal Exam GI & Abdominal Exam: Soft. absent: Distended, Tenderness - Extremities Exam Extremities Exam: absent: Calf Tenderness - Psychiatric Exam Psychiatric exam: Flat Affect - Skin Skin Exam: Dry Assessment and Plan (1) ESRD (end stage renal disease) on dialysis Status: Chronic (2) Atrial flutter with rapid ventricular response Status: Acute (3) CAD (coronary artery disease) of artery bypass graft Status: Acute (4) Cardiomyopathy Status: Acute (5) Congestive heart failure Status: Acute - Assessment and Plan (Free Text) Plan: try to remove 2-3 kg follow cardiology recommendations
--- NOTE | 2017-02-28 11:20 | CP.PCM.PN ---
Subjective - Date & Time of Evaluation Date of Evaluation: 02/28/17 Time of Evaluation: 11:20 - Subjective Subjective: awake, alert, no sob or chest pains. Objective - Vital Signs/Intake and Output Vital Signs (last 24 hours): Temp Pulse Resp BP Pulse Ox 98.1 F 87 20 99/53 L 93 L 02/28/17 09:41 02/28/17 09:41 02/28/17 09:41 02/28/17 10:41 02/28/17 09:41 - Medications Medications: Current Medications Acetaminophen (Tylenol 325mg Tab) 650 mg PO Q4 PRN PRN Reason: Pain, Mild (1-3) Amiodarone HCl (Cordarone) 200 mg PO DAILY [facility] Last Admin: 02/27/17 14:28 Dose: Not Given Cilostazol (Pletal) 100 mg PO BID [facility] Last Admin: 02/27/17 17:57 Dose: 100 mg Digoxin (Lanoxin) 0.125 mg PO DAILY@1800 [facility] Last Admin: 02/27/17 17:56 Dose: 0.125 mg Epoetin Sj (Procrit) 4,000 unit IV MWF [facility] Last Admin: 02/27/17 10:22 Dose: 4,000 unit Famotidine (Pepcid) 20 mg PO DAILY [facility] Last Admin: 02/27/17 14:26 Dose: 20 mg Insulin Aspart (Novolog) 0 unit SC ACHS [facility] PRN Reason: Protocol Last Admin: 02/27/17 21:40 Dose: Not Given Insulin Glargine (Lantus) 25 unit SC Q12H [facility] Last Admin: 02/28/17 05:57 Dose: 25 units Methylprednisolone (Solu-Medrol) 40 mg IVP Q12 [facility] Last Admin: 02/27/17 21:41 Dose: 40 mg Metoprolol Tartrate (Lopressor) 25 mg PO BID [facility] Last Admin: 02/27/17 18:03 Dose: Not Given Midodrine (Proamatine) 5 mg PO TID [facility] Last Admin: 02/27/17 17:56 Dose: 5 mg Fluticasone/Salmeterol (Advair Diskus 250/50) 1 puff INH RBID [facility] Last Admin: 02/27/17 20:34 Dose: Not Given Sevelamer Carbonate (Renvela) 800 mg PO TID [facility] Last Admin: 02/27/17 17:57 Dose: 800 mg Silver Sulfadiazine (Silvadene 1% 20 Gm) 0 ea TOP QSHIFT [facility] Last Admin: 02/28/17 05:57 Dose: 1 applic - Labs Labs: 02/27/17 07:34 02/27/17 07:34 Assessment and Plan - Assessment and Plan (Free Text) Assessment: Patient is seen and examined in the dialysis room. Awake, alert, no sob or chest pains, tolerating HD well today. D/W DR Zina Peterson, plsn to discharge to [facility] today, and continue with HD 4 times [address] [facility] as per DR Barroso. manager of pharmacy is arranging transportation.
[2017-02-28] MEDS: Fluticasone-Salmeterol 250-50mcg Diskus INH SCH (12:12)
--- NOTE | 2017-02-28 13:24 | CP.PCM.PN ---
Subjective - Date & Time of Evaluation Date of Evaluation: 02/28/17 Time of Evaluation: 10:20 - Subjective Subjective: clinically same Objective - Vital Signs/Intake and Output Vital Signs (last 24 hours): Temp Pulse Resp BP Pulse Ox 98.1 F 87 20 105/55 L 93 L 02/28/17 09:41 02/28/17 09:41 02/28/17 09:41 02/28/17 12:11 02/28/17 09:41 - Medications Medications: Current Medications Acetaminophen (Tylenol 325mg Tab) 650 mg PO Q4 PRN PRN Reason: Pain, Mild (1-3) Amiodarone HCl (Cordarone) 200 mg PO DAILY [facility] Last Admin: 02/27/17 14:28 Dose: Not Given Cilostazol (Pletal) 100 mg PO BID [facility] Last Admin: 02/27/17 17:57 Dose: 100 mg Digoxin (Lanoxin) 0.125 mg PO DAILY@1800 [facility] Last Admin: 02/27/17 17:56 Dose: 0.125 mg Epoetin Sj (Procrit) 4,000 unit IV MWF [facility] Last Admin: 02/27/17 10:22 Dose: 4,000 unit Famotidine (Pepcid) 20 mg PO DAILY [facility] Last Admin: 02/27/17 14:26 Dose: 20 mg Insulin Aspart (Novolog) 0 unit SC ACHS [facility] PRN Reason: Protocol Last Admin: 02/27/17 21:40 Dose: Not Given Insulin Glargine (Lantus) 25 unit SC Q12H [facility] Last Admin: 02/28/17 05:57 Dose: 25 units Methylprednisolone (Solu-Medrol) 40 mg IVP Q12 [facility] Last Admin: 02/27/17 21:41 Dose: 40 mg Metoprolol Tartrate (Lopressor) 25 mg PO BID [facility] Last Admin: 02/27/17 18:03 Dose: Not Given Midodrine (Proamatine) 5 mg PO TID [facility] Last Admin: 02/27/17 17:56 Dose: 5 mg Fluticasone/Salmeterol (Advair Diskus 250/50) 1 puff INH RBID [facility] Last Admin: 02/28/17 12:12 Dose: Not Given Sevelamer Carbonate (Renvela) 800 mg PO TID [facility] Last Admin: 07/21/17 17:57 Dose: 800 mg Silver Sulfadiazine (Silvadene 1% 20 Gm) 0 ea TOP QSHIFT [facility] Last Admin: 02/28/17 05:57 Dose: 1 applic - Labs Labs: 02/27/17 07:34 02/27/17 07:34 - Constitutional Appears: Well - Head Exam Head Exam: ATRAUMATIC, NORMAL INSPECTION, NORMOCEPHALIC - Eye Exam Eye Exam: EOMI, Normal appearance, PERRL Pupil Exam: NORMAL ACCOMODATION, PERRL - ENT Exam ENT Exam: Mucous Membranes Moist, Normal Exam - Neck Exam Neck Exam: Full ROM, Normal Inspection. absent: Lymphadenopathy - Respiratory Exam Respiratory Exam: Decreased Breath Sounds - Cardiovascular Exam Cardiovascular Exam: REGULAR RHYTHM, +S1, +S2 - GI/Abdominal Exam GI & Abdominal Exam: Soft, Diminished Bowel Sounds - Rectal Exam Rectal Exam: Deferred
[2017-02-28] MEDS: MethylPREDNISolone 40 mg Vial IVP SCH (13:37)
[2017-02-28] MEDS: Cilostazol 100 mg Tab UD PO SCH ×2 (13:39→17:21)
[2017-02-28] MEDS: (Novolog) Insulin Aspart, Recombinant 100 u/ml 10 ml vial SC SCH ×2 (13:43→17:22)
[2017-02-28 16:44] VITALS: PULSE 75; TEMP 98; O2SAT 94
[2017-02-28] MEDS: Digoxin 125 mcg (0.125 mg) Tab PO SCH (17:21)
[2017-02-28 17:22] VITALS: BP 123/72; PULSE 77
== END 2017-02-28 19:30 | DRG 127 ==
LOC: C.ER 09:48 → C.9E 13:39 → C.3T 19:03 → C.5T 02-17 01:17 → OBSVTOIN 02-18 09:42 → C.9I 02-19 11:04 → C.5T 02-20 22:16
PROVIDERS: ADMIT Internal Medicine Nephrology; ATTEND Internal Medicine Nephrology
PROC: 5A1D60Z (ICD-10-PCS; principal; 2017-02-18)
DX: I13.2 Hypertensive heart and chronic kidney disease with heart failure and with stage 5 chronic kidney disease, or end stage renal disease (principal); N18.6 End stage renal disease; E11.22 Type 2 diabetes mellitus with diabetic chronic kidney disease; I25.5 Ischemic cardiomyopathy; I48.92 Unspecified atrial flutter; I25.10 Atherosclerotic heart disease of native coronary artery without angina pectoris; R09.02 Hypoxemia; I50.9 Heart failure, unspecified; Z99.2 Dependence on renal dialysis; Z79.4 Long term (current) use of insulin; I48.91 Unspecified atrial fibrillation; E78.5 Hyperlipidemia, unspecified; F32.9 Major depressive disorder, single episode, unspecified; H40.9 Unspecified glaucoma

== ENCOUNTER 2017-03-10 15:29 | Inpatient (IN) | payer OTHER, MEDICARE ==
[2017-03-10 15:29] VITALS: PULSE 77
[2017-03-10 15:34] VITALS: BMI 31.2
[2017-03-10] MEDS ORDERED: Sodium Chloride 0.9% 500 ML IV ONE (15:35)
[2017-03-10] MEDS ORDERED: (Novolin R) Insulin Human Regular 100 units/ml vial IV STA ×2 (15:39→17:07)
[2017-03-10] MEDS ORDERED: (Novolin R) Insulin Human Regular 100 units/ml vial ONE ×2 (15:53→17:37)
[2017-03-10] MEDS ORDERED: Sodium Chloride 0.9% 1,000 ML ONE (15:53)
[2017-03-10 16:29] LABS: HEMATOCRIT 32.1 % (34.0-47.0); MEAN CELL VOLUME 104.8 fL (81.0-99.0); MEAN CORPUSCULAR HEMOGLOBIN 33.5 pg (27.0-31.0); MEAN CORPUSCULAR HGB CONC 31.9 g/dL (33.0-37.0); MEAN PLATELET VOLUME 9.5 fL (7.2-11.7); RED CELL DISTRIBUTION WIDTH 21.6 % (11.5-14.5); WHITE BLOOD COUNT 5.9 K/uL (4.8-10.8)
--- NOTE | 2017-03-10 16:30 | RAD ---
PROCEDURE: CHEST RADIOGRAPH, 1 VIEW HISTORY: Shortness of breath COMPARISON: 02/20/2017. FINDINGS: LUNGS: Examination is limited due to portable technique and patient position. Allowing for this, there is development of airspace disease in the right lower lobe. PLEURA: There is a small right pleural effusion. No left pleural effusion. No pneumothorax. CARDIOVASCULAR: There is moderate cardiomegaly. Status post CABG. Atherosclerotic aortic arch calcifications are present. OSSEOUS STRUCTURES: No significant abnormalities. VISUALIZED UPPER ABDOMEN: Normal. OTHER FINDINGS: None. IMPRESSION: Suspect right lower lobe pneumonia and small right pleural effusion. Follow-up after medical management is recommended to ensure complete resolution.
[2017-03-10 16:31] LABS: INR 1.4; POTASSIUM 4.5 mmol/L (3.6-5.2)
[2017-03-10 16:33] LABS: ALB/GLOB RATIO 1.4 (1.0-2.1); BILIRUBIN,TOTAL 1.3 mg/dL (0.2-1.3); TOTAL PROTEIN 6.3 g/dL (6.3-8.3)
[2017-03-10 16:34] LABS: CALCIUM 9.7 mg/dl (8.6-10.4)
[2017-03-10 16:35] LABS: VENOUS BLOOD GAS BASE EXCESS -9.2 mmol/L (0.0-2.0); VENOUS BLOOD GAS PCO2 54 mmHg (40-60); VENOUS BLOOD PH 7.17 (7.32-7.43)
[2017-03-10 16:48] LABS: TROPONIN I 0.154 ng/mL (0.00-0.120)
--- NOTE | 2017-03-10 17:01 | C.PDOC ---
History Of Present Illness 76 year old female was brought to the ED by EMS from dialysis after being found to be too hypotensive and lethargic to receive dialysis. As per EMS, patient was bradycardic en route and life net alert EKG was sent prior to arrival. Patient denies fever, nausea, and vomiting. Time Seen by Provider: 03/10/17 15:34 Chief Complaint (Nursing): Altered Mental Status History Per: EMS History/Exam Limitations: None Onset/Duration Of Symptoms: Hrs, Sudden Onset Current Symptoms Are (Timing): Still Present Use Of Anticoag/Antiplatelets: No Recent travel outside of the [place]: No Additional History Per: Patient, Prior Records (and dialysis center) Associated Symptoms: Other (Hypotensive and lethargic ). denies: Fever, Chills , Vomiting, Diarrhea Past Medical History Reviewed: Historical Data, Nursing Documentation, Vital Signs Vital Signs: Last Vital Signs Temp 98 F 03/10/17 19:41 Pulse 52 L 03/10/17 23:30 Resp 16 03/10/17 20:14 BP 119/55 L 03/10/17 19:41 Pulse Ox 97 03/10/17 19:45 - Medical History PMH: Anemia, Arthritis, Atrial Fibrillation, Cardia Arrhythmia, Gastritis, HTN, Hypercholesterolemia, End Stage Renal Disease, Chronic Kidney Disease Surgical History: CABG (CABG x 4 on 03/06/2009.), Endoscopy - [facility] Procedures ASSISTANCE WITH RESPIRATORY VENTILATION, 24-96 HRS, CPAP (02/04/17) DILATION OF 1 COR ART WITH DRUG-ELUT INTRA, PERC APPROACH (05/09/15) FLUOROSCOPY OF LEFT HEART USING LOW OSMOLAR CONTRAST (02/04/17) FLUOROSCOPY OF MULT COR A GRAFT USING L OSM CONTRAST (02/04/17) FLUOROSCOPY OF MULT COR ART USING L OSM CONTRAST (02/04/17) FLUOROSCOPY OF SINGLE CORONARY ARTERY USING L OSM CONTRAST (05/09/15) INSERT INFUSION DEV IN R INT JUGULAR VEIN, PERC (02/04/17) MEASURE OF CARDIAC SAMPL & PRESSURE, L HEART, PERC APPROACH (02/04/17) OTHER LOCAL DESTRUC SKIN (12/27/13) PERFORMANCE OF URINARY FILTRATION, MULTIPLE (02/18/17) ULTRASONOGRAPHY OF RIGHT JUGULAR VEINS, GUIDANCE (02/04/17) Family History: States: Unknown Family Hx, Hypertension - Social History Hx Tobacco Use: No Hx Alcohol Use: No Hx Substance Use: No - Immunization History Hx Tetanus Toxoid Vaccination: No Hx Influenza Vaccination: Yes Hx Pneumococcal Vaccination: Yes Review Of Systems Constitutional: Positive for: Other (lethargy and hypotensive ). Negative for: Fever, Chills Cardiovascular: Positive for: Other (Bradycardic en route to hospital ). Negative for: Chest Pain Respiratory: Negative for: Shortness of Breath Gastrointestinal: Negative for: Nausea, Vomiting, Abdominal Pain, Diarrhea Physical Exam - Physical Exam Appears: Non-toxic, No Acute Distress, Other (Patient is lethargic and obese. ) Skin: Warm, Dry, Other (Midline sternotomy scar ) Head: Atraumatic Eye(s): bilateral: Normal Inspection, PERRL, EOMI Neck: Supple Lymphatic: No Adenopathy Chest: Symmetrical, No Deformity Cardiovascular: Other (Atrial fibrillation at 50 with flattened T-waves ) Respiratory: Normal Breath Sounds, No Rhonchi, No Wheezing ED Course And Treatment - Laboratory Results Result Diagrams: 03/10/17 16:18 03/10/17 16:18 O2 Sat by Pulse Oximetry: 92 (room air ) - Radiology CXR: Viewed By Me, Read By Radiologist CXR Interpretation: Yes: Other (IMPRESSION:) Progress Note: EKG and UA were performed. Discussed with patient's son at bed side, patient wishes to be DNR. DNR was ordered and placed in chart. Procedure: Blank - Time Time Performed: 16:15 - Procedure Procedure:: Left EJV placed in first attempt - Consent obtained: Consent obtained: Emergent consent implied - Performed by: Performed by:: Attending physician - Contraindications: Contraindications:: None - Result Result: Successful - Patient Tolerated Procedure Patient Tolerated Procedure:: Well Medical Decision Making Medical Decision Makin: initially K+ 3.0 on VBG but 4.5 on blood chem ok for 20 MEQ K+ in light of recurrent insulin bolus mental status improved and and conversant on VapoTherm- defer BiPap and/or intubation at this time. Worstening CHF though hypotension suggest poor cardiac function, hyperglycemia Gentle hydration and vapotherm to avoid intubation per pt wishes, Dr. Esperanza Peterson agrees DNR per d/w Son @ bedside. Disposition Doctor Will See Patient In The: Hospital Counseled Patient/Family Regarding: Studies Performed, Diagnosis - Disposition Disposition: HOSPITALIZED Disposition Time: 15:30 Condition: GUARDED - Clinical Impression Clinical Impression: CHF (congestive heart failure), Afib, Uncontrolled diabetes mellitus, ESRD ( end stage renal disease) on dialysis - Mimiibe Statement The provider has reviewed the documentation as recorded by the Mimiibrory Lr All medical record entries made by the Hilda were at my direction and personally dictated by me. I have reviewed the chart and agree that the record accurately reflects my personal performance of the history, physical exam, medical decision making, and the department course for this patient. I have also personally directed, reviewed, and agree with the discharge instructions and disposition.
--- NOTE | 2017-03-10 17:07 | C.PDOC ---
Time Seen by Provider: 03/10/17 15:34 Chief Complaint (Nursing): Altered Mental Status Past Medical History Vital Signs: Last Vital Signs Temp 97.2 F L 03/10/17 15:50 Pulse 56 L 03/10/17 16:16 Resp 16 03/10/17 16:16 BP 89/36 L 03/10/17 15:50 Pulse Ox 92 L 03/10/17 15:50 - Medical History PMH: Anemia, Arthritis, Atrial Fibrillation, Cardia Arrhythmia, Gastritis, HTN, Hypercholesterolemia, End Stage Renal Disease, Chronic Kidney Disease Surgical History: CABG (CABG x 4 on 03/06/2009.), Endoscopy - [facility] Procedures ASSISTANCE WITH RESPIRATORY VENTILATION, 24-96 HRS, CPAP (02/04/17) DILATION OF 1 COR ART WITH DRUG-ELUT INTRA, PERC APPROACH (05/09/15) FLUOROSCOPY OF LEFT HEART USING LOW OSMOLAR CONTRAST (02/04/17) FLUOROSCOPY OF MULT COR A GRAFT USING L OSM CONTRAST (02/04/17) FLUOROSCOPY OF MULT COR ART USING L OSM CONTRAST (02/04/17) FLUOROSCOPY OF SINGLE CORONARY ARTERY USING L OSM CONTRAST (05/09/15) INSERT INFUSION DEV IN R INT JUGULAR VEIN, PERC (02/04/17) MEASURE OF CARDIAC SAMPL & PRESSURE, L HEART, PERC APPROACH (02/04/17) OTHER LOCAL DESTRUC SKIN (12/27/13) PERFORMANCE OF URINARY FILTRATION, MULTIPLE (02/18/17) ULTRASONOGRAPHY OF RIGHT JUGULAR VEINS, GUIDANCE (02/04/17) Family History: States: Hypertension - Social History Hx Tobacco Use: No Hx Alcohol Use: No Hx Substance Use: No - Immunization History Hx Tetanus Toxoid Vaccination: No Hx Influenza Vaccination: Yes Hx Pneumococcal Vaccination: Yes ED Course And Treatment - Laboratory Results Result Diagrams: 03/10/17 16:18 03/10/17 16:18 O2 Sat by Pulse Oximetry: 92 Medical Decision Making Medical Decision Makin: initially K+ 3.0 on VBG but 4.5 on blood chem ok for 20 MEQ K+ in light of recurrent insulin bolus mental status improved and and conversant on VapoTherm- defer BiPap and/or intubation at this time. DNR per d/w Son @ bedside. Disposition Doctor Will See Patient In The: Hospital Counseled Patient/Family Regarding: Studies Performed, Diagnosis - Disposition Disposition: HOSPITALIZED Disposition Time: 17:17 Condition: FAIR Forms: [facility]Citizen [place]) - Clinical Impression Clinical Impression: CHF (congestive heart failure), Afib, Uncontrolled diabetes mellitus
[2017-03-10 18:14] LABS: BASO % 1.5 % (0.0-2.0); EOS % 0.9 % (0.0-4.0); LYMPH % 11.4 % (20.0-40.0); MONO % 6.1 % (0.0-10.0); NRBC % 0.7 % (0.0-2.0)
[2017-03-10 18:15] LABS: LYMPH # 0.7 K/uL (1.0-4.3)
[2017-03-10 18:16] LABS: BASO # 0.1 K/uL (0.0-0.2); EOS # 0.1 K/uL (0.0-0.7); MONO # 0.4 K/uL (0.0-0.8)
--- NOTE | 2017-03-10 19:33 | CP.PCM.HP ---
History of Present Illness - History of Present Illness History of Present Illness: 76 years old female patient with past medical history of atrial fibrillation, hypertension, CAD S/P CABG in 2009, hypercholesterolemia, end-stage renal disease on hemodialysis, patient was sent from the hemodialysis center as he was altered mental status and hypotension. In the emergency department, patient found to be hyperglycemic, increased troponins, BNP, met acidosis. EKG showed A. fib with slow ventricular response, bradycardia, heart rate 50/ min. Patient received IV fluids and started on antibiotics. No fever, nausea, vomiting. No cough, shortness of breath, chest pain Present on Admission - Present on Admission Any Indicators Present on Admission: No Review of Systems - Review of Systems Systems not reviewed;Unavailable: Unstable Vital Signs - Cardiovascular Cardiovascular: Irregular Heart Rhythm Past Patient History - Infectious Disease Hx of Infectious Diseases: None - Past Medical History & Family History Past Medical History?: Yes - Past Social History Smoking Status: Never Smoked - CARDIAC Hx Atrial Fibrillation: Yes Hx Cardia Arrhythmia: Yes Hx Hypercholesterolemia: Yes Hx Hypertension: Yes - PULMONARY Hx Respiratory Disorders: Yes Hx Pulmonary Edema: Yes - NEUROLOGICAL Hx Neurological Disorder: Yes Hx Dizziness: Yes - HEENT Hx HEENT Problems: Yes Hx Cataracts: Yes (Left and right cataract extraction in 2011) Hx Glaucoma: Yes - RENAL Hx Chronic Kidney Disease: Yes - ENDOCRINE/METABOLIC Hx Endocrine Disorders: Yes Hx Diabetes Mellitus Type 2: Yes - HEMATOLOGICAL/ONCOLOGICAL Hx Anemia: Yes - INTEGUMENTARY Hx Dermatological Problems: No - MUSCULOSKELETAL/RHEUMATOLOGICAL Hx Arthritis: Yes - GASTROINTESTINAL Hx Gastritis: Yes - GENITOURINARY/GYNECOLOGICAL Hx Genitourinary Disorders: No - PSYCHIATRIC Hx Substance Use: No - SURGICAL HISTORY Hx Coronary Artery Bypass Graft: Yes (CABG x 4 on 03/06/2009.) - ANESTHESIA Hx Anesthesia: Yes Hx Anesthesia Reactions: No Hx Malignant Hyperthermia: No Meds Allergies/Adverse Reactions: Allergies Allergy/AdvReac Type Severity Reaction Status Date / Time No Known Allergies Allergy Verified 03/10/17 15:33 Physical Exam - Eye Exam Eye Exam: Normal appearance - ENT Exam ENT Exam: Normal Exam - Respiratory Exam Respiratory Exam: Decreased Breath Sounds - Cardiovascular Exam Cardiovascular Exam: Bradycardia, Irregular Rhythm - GI/Abdominal Exam GI & Abdominal Exam: Diminished Bowel Sounds - Rectal Exam Rectal Exam: Deferred Results - Vital Signs Recent Vital Signs: Last Vital Signs Temp 97.2 F L 03/10/17 15:50 Pulse 71 03/10/17 18:51 Resp 21 03/10/17 18:51 BP 116/69 03/10/17 18:51 Pulse Ox 96 03/10/17 18:51 - Labs Result Diagrams: 03/18/17 18:59 03/18/17 18:59 Assessment & Plan (1) Acute [id number] elevation myocardial infarction Status: Acute (2) Acute pulmonary edema with congestive heart failure Status: Acute (3) Afib Status: Acute (4) Atrial flutter with rapid ventricular response Status: Acute (5) CAD (coronary artery disease) of artery bypass graft Status: Acute (6) CHF (congestive heart failure) Status: Acute (7) Cardiomyopathy Status: Acute (8) Congestive heart failure Status: Acute (9) Diabetic nephropathy associated with type 2 diabetes mellitus Status: Acute (10) Diarrhea Status: Acute (11) ESRD (end stage renal disease) on dialysis Status: Acute (12) Elevated d-dimer Status: Acute (13) Elevated liver enzymes Status: Acute (14) Heart failure Status: Acute (15) Hypotension Status: Acute (16) Ischemic cardiomyopathy Status: Acute (17) New onset atrial flutter Status: Acute (18) Opacity of lung on imaging study Status: Acute (19) Oxygen desaturation Status: Acute (20) Pleural effusion Status: Acute (21) Pneumonia Status: Acute (22) Prophylactic measure Status: Acute (23) Uncontrolled diabetes mellitus Status: Acute (24) CAD (coronary artery disease) Status: Chronic (25) CHF (congestive heart failure) Status: Chronic (26) Diabetes Status: Chronic (27) Diabetic neuropathy Status: Chronic (28) ESRD (end stage renal disease) on dialysis Status: Chronic (29) HLD (hyperlipidemia) Status: Chronic (30) HTN (hypertension) Status: Chronic (31) PVD (peripheral vascular disease) Status: Chronic - Assessment and Plan (Free Text) Plan: Patient was brought from the hemodialyses for altered mental status secondary to right lower lobe pneumonia IV Rocephin and IV Zithromax continue current medications cardiology consultations Protonix SCD Patient is a possible DNR as per the ER doctor Continue as ordered
[2017-03-10] MEDS: (Lantus) Insulin Glargine, Recombinant SC SCH (22:06)
[2017-03-11] MEDS ORDERED: Sodium Chloride 0.9% 250 ML IV ONE ×2 (07:30→09:16)
--- NOTE | 2017-03-11 08:24 | PCM.RRTMUL ---
<Atif Elliott - Last Filed: 03/11/17 08:21> [facility] Nurses Assessment - Situation [facility] Responder Arrival Time:: 07:26 Location:: [address] [place] [address] Room Number:: 651-B [facility] Reason for Call: Hypotension [facility] Called By: RN - IV IV Inserted during CURTAIN FRAMER?: Yes IV Fluids Initiated During CURTAIN FRAMER?: Right femoral vein Central Line. Given 250cc of NS New IV Insertion Tolerance:: Excellent - Respiratory Oxygen Delivery Method:: High-Flow Received Nebulizer Treatments:: No Was the Patient Ventilated with Bag/Mask 100% O2?: No Secretions Suctioned?: No Was the Patient Intubated?: No Was the Patient Placed on a Ventilator?: No - Ventilator Settings FIO2 (% Oxygen):: 70 - Diagnostic Test Ordered EKG:: No Chest X-Ray:: No (Portable Cxr ordered but not done yet during rapid response) CT Scan:: No - Stat Labs Ordered [facility] Stat Labs Ordered:: CBC, TROPONIN, LACTIC ACID, ABG [facility] Other Labs Ordered:: CMP, Pro-BNP CPR started during CURTAIN FRAMER?: No - Vital Signs Blood Pressure:: 74/38 (First blood pressure) Respiratory Rate:: 24 - Wanda Coma Scale Coma Scale Eye Opening:: Spontaneous Coma Scale Motor:: Movement to pain stimulus Coma Scale Verbal:: Confused/able to answer Coma Scale Total:: 13 - Sepsis Screen Part 1 Sepsis Screen Part 1: Hypotensive - Time CURTAIN FRAMER Ended Time CURTAIN FRAMER Ended:: 08:11 - Vital Signs at end of CURTAIN [facility]ER Blood Pressure:: 106/85 Pulse Rate:: 65 O2 Sat by Pulse Oximetry:: 97 - Recommendations 5) CURTAIN FRAMER Level of Care Recommendations: Remain in current setting 6) Notifications: Attending Physician I.Reason for CURTAIN FRAMER - A) Acute Change in Patient: (Select all that apply): Acute change in SBP below Subjective: Rapid response called at 7:25 AM to room 651B for patient Massiel Quinn. Patient has history of CHF and ESRD on HD. Reason for CURTAIN FRAMER was hypotension. First BP 74/38. Patient lethargic but awake and alert. Patient was found in A- fib with slow ventricular response. Patient was initially saturating at 78% on room air. High flow nasal cannula was given which improved it to 94%. Leaking left IJ line was found on exam. Peripheral IV insertion failed. So Right Femoral Vein Central Line placed. Patient tolerated procedure with no complications. Patient given 250cc bolus of NS which returned blood pressure to 105/78. - A) Initial Vital Signs: Blood Pressure: 74/38 O2 Sat by Pulse Oximetry: 78 - B) Neurological Status (Select all that apply): Alert, Responsive, Disoriented - C) Respiratory Oxygen Delivery Method: High-Flow @% - Constitutional Appears: No Acute Distress - Head Head Exam: ATRAUMATIC, NORMAL INSPECTION, NORMOCEPHALIC - Respiratory Exam Respiratory Exam: Clear to Ausculation Bilateral - Cardiovascular Exam Cardiovascular Exam: Bradycardia, Irregular Rhythm, +S1, +S2 - Neurological Exam Neurological Exam: Alert, Awake Plan - A. End of CURTAIN FRAMER Vital Signs: Blood Pressure: 106/87 O2 Sat by Pulse Oximetry: 97 - B. Assessment of Findings&Treatment Plan Patient given 250cc bolus of NS. Blood pressure improved to 106/85. Blood pressure medications were held. Follow up labs ordered: CBC, CMP, Pro-BNP, ABG with shock panel, DIYA Follow up CXR. Attending Dr. Zina Kim notified. Patient is stable at end of rapid response. Procedures Attestation:: I certify that I have explained the specified Operation(s) or Procedure(s), risks, benefits and reasonable alternatives to the Patient and/or other person responsible. The opportunity was given to ask questions and all questions answered - Central Line Placement Right Femoral Aseptic technique was employed throughout the procedure: Chloraprep Antiseptic: 2 minute prep for Femoral Central Line Prep: Chlorhexidine-Alcohol Combination Local Anesthesia Used: Lidocaine 2% Ultrasound Used for Placement: No Central Line Lumen Inserted: triple Post Procedure: Sutured in Place, Good Blood Return, All Ports Aspirated, Flushed, Capped, Sterile Dressing Applied Secured by: Suture Post procedure dressing: Chlorhexidine disc (Biopatch) Post Procedure X-Ray: Yes Patient Tolerated Procedure: Well Immediate Complications: None <Halie Valentino V - Last Filed: 03/11/17 09:27> Attending/Attestation - Attestation I have personally seen and examined this patient.: Yes I have fully participated in the care of the patient.: Yes I have reviewed all pertinent clinical information, including history, physical exam and plan: Yes Notes (Text): Hospitalist Note: Responded to [facility] called this morning. Per patient's night time nurse, Breanna, patient is hypotensive SBP: 70s and is normal 90-low 100s. Per ED note, patient came in following hypotension and lethargy prior to dialysis yesterday. patient did not get dialysis. patient is mainly [place]-speaking. Patient's current IV access was poor and infiltrated. Multiple nurses attempted to secure peripheral access but unable to. Reviewed patient's EMR in computer there is no advance care directive. There is a DNR order in the computer prior to my arrival. Discussed with ICU, patient needed emergent IV access (femoral line) over right groin given lack of peripheral in spite multiple attempts. Per review of EMR, patient has history of CHF/CABG EF: 55% per echo in January, ESRD on HD (anuric), atrial flutter/fib, Atrial fibrillation. Patient is sugar in 70s. No medications were administered this morning. Patient's anti- hypertensives were held. Patient given 250cc saline bolus when line was secured. Blood pressure appropriately responded to SBP: 106. Patient is on high- flow vasoprem, and improved saturating 95-97%. Patient's HR 50-60s at time of rapid. Discussed with ICU, patient is not ICU candidate at this time. Discussed with patient's primary attending Dr. Zina kim the following events as noted above , will come see the patient, recommended antibiotic therapy, and pulm consult. Discussed with nursing staff who are aware.
[2017-03-11 08:33] LABS: VENOUS BLOOD GAS BASE EXCESS -5.8 mmol/L (0.0-2.0); VENOUS BLOOD GAS PCO2 57 mmHg (40-60); VENOUS BLOOD PH 7.21 (7.32-7.43)
--- NOTE | 2017-03-11 08:40 | PCM.PROC ---
Procedures Attestation:: I certify that I have explained the specified Operation(s) or Procedure(s), risks, benefits and reasonable alternatives to the Patient and/or other person responsible. The opportunity was given to ask questions and all questions answered - Central Line Placement Right Femoral Triple Lumen Catheter Aseptic technique was employed throughout the procedure: Hand Hygiene done prior to procedure, Full sterile barriers (mask, hair cover, sterile gown, sterile gloves), Full body sterile drape, Chloraprep Antiseptic: 2 minute prep for Femoral Central Line Prep: Chlorhexidine-Alcohol Combination Local Anesthesia Used: Lidocaine 2% Ultrasound Used for Placement: No Central Line Lumen Inserted: triple Post Procedure: Sutured in Place, Good Blood Return, All Ports Aspirated, Flushed, Capped, Sterile Dressing Applied Secured by: Suture Post procedure dressing: Chlorhexidine disc (Biopatch) Post Procedure X-Ray: Yes Patient Tolerated Procedure: Well Immediate Complications: None
[2017-03-11 08:47] LABS: BASO # 0.1 K/uL (0.0-0.2); EOS % 0.6 % (0.0-4.0); HEMATOCRIT 31.7 % (34.0-47.0); LYMPH # 0.2 K/uL (1.0-4.3); LYMPH % 3.1 % (20.0-40.0); MEAN CELL VOLUME 103.9 fL (81.0-99.0); MEAN CORPUSCULAR HEMOGLOBIN 33.7 pg (27.0-31.0); MEAN CORPUSCULAR HGB CONC 32.4 g/dL (33.0-37.0); MEAN PLATELET VOLUME 8.8 fL (7.2-11.7); MONO # 0.5 K/uL (0.0-0.8); MONO % 8.7 % (0.0-10.0); NRBC % 1.3 % (0.0-2.0); RED CELL DISTRIBUTION WIDTH 21.4 % (11.5-14.5); WHITE BLOOD COUNT 6.2 K/uL (4.8-10.8)
[2017-03-11 08:50] LABS: PLATELET COUNT 86 K/uL (130-400); POTASSIUM 4.8 mmol/L (3.6-5.2)
[2017-03-11 08:52] LABS: ALB/GLOB RATIO 1.4 (1.0-2.1); BILIRUBIN,TOTAL 1.8 mg/dL (0.2-1.3); CALCIUM 9.9 mg/dl (8.6-10.4); TOTAL PROTEIN 5.9 g/dL (6.3-8.3)
[2017-03-11 09:11] LABS: NUCLEATED RED BLOOD CELL 3 % (0-0); TOTAL CELLS COUNTED 100
[2017-03-11 09:12] LABS: BASOPHIL 1 % (0-2); NEUTROPHIL 87 % (50-75)
--- NOTE | 2017-03-11 09:27 | CP.PCM.CON ---
<WYATTILSA - Last Filed: 03/11/17 09:35> History of Present Illness - History of Present Illness History of Present Illness: Ilsa Gardner, PGY1, Consult Note for Cardiology (Dr. Seo): HPI: 76F with PMH ESRD on HD, afib, CHF with EF 55%, presented to ED for AMS and hypotension. Pt was sent from the dialysis center as she was altered and hypotensive to receive dialysis. In ED, pt's BP 88/36, afebrile, hyperglycemic, BS 446, trop elevated 0.1540, elevated BNP 64560, metabolic acidosis, lactate 1.1. CXR shows RLL PNA and small right pleural effusion. Ekg shows HR 50, irregular, afib with slow ventricular response. Received 500ml NS bolus, and Azithro and Rocephin. Cardiology consulted for optimization of chf and afib. PMH: Anemia, Arthritis, Atrial Fibrillation, Cardia Arrhythmia, Gastritis, HTN, Hypercholesterolemia, End Stage Renal Disease PSH: CABG (CABG x 4 on 03/06/2009.), Endoscopy All: NKA FH: HTN, unknown relative SH: denies drug, EtOH or tobacco use. Code status: DNR Review of Systems - Review of Systems Systems not reviewed;Unavailable: Unstable Vital Signs, Altered Mental Status - Constitutional Constitutional: Lethargy Past Patient History - Infectious Disease Hx of Infectious Diseases: None - Past Medical History & Family History Past Medical History?: Yes - Past Social History Smoking Status: Never Smoked - CARDIAC Hx Atrial Fibrillation: Yes Hx Cardia Arrhythmia: Yes Hx Hypercholesterolemia: Yes Hx Hypertension: Yes - PULMONARY Hx Respiratory Disorders: Yes Hx Pulmonary Edema: Yes - NEUROLOGICAL Hx Neurological Disorder: Yes Hx Dizziness: Yes - HEENT Hx HEENT Problems: Yes Hx Cataracts: Yes (Left and right cataract extraction in 2011) Hx Glaucoma: Yes - RENAL Hx Chronic Kidney Disease: Yes - ENDOCRINE/METABOLIC Hx Endocrine Disorders: Yes Hx Diabetes Mellitus Type 2: Yes - HEMATOLOGICAL/ONCOLOGICAL Hx Anemia: Yes - INTEGUMENTARY Hx Dermatological Problems: No - MUSCULOSKELETAL/RHEUMATOLOGICAL Hx Arthritis: Yes - GASTROINTESTINAL Hx Gastritis: Yes - GENITOURINARY/GYNECOLOGICAL Hx Genitourinary Disorders: No - PSYCHIATRIC Hx Substance Use: No - SURGICAL HISTORY Hx Coronary Artery Bypass Graft: Yes (CABG x 4 on 03/06/2009.) - ANESTHESIA Hx Anesthesia: Yes Hx Anesthesia Reactions: No Hx Malignant Hyperthermia: No Has any member of the family had a problem w/ anesthesia?: No Meds Allergies/Adverse Reactions: Allergies Allergy/AdvReac Type Severity Reaction Status Date / Time No Known Allergies Allergy Verified 03/10/17 15:33 - Medications Medications: Current Medications Amiodarone HCl (Cordarone) 200 mg PO DAILY [facility] Apixaban (Eliquis) 2.5 mg PO BID [facility] Cilostazol (Pletal) 100 mg PO BID [facility] Diltiazem HCl (Cardizem) 30 mg PO TID [facility] Famotidine (Pepcid) 20 mg PO DAILY [facility] Ceftriaxone Sodium 1 gm/ (Sodium Chloride) 100 mls @ 100 mls/hr IVPB DAILY [facility] Azithromycin 500 mg/ Sodium (Chloride) 250 mls @ 250 mls/hr IVPB DAILY [facility] Insulin Glargine (Lantus) 50 unit SC HS [facility] Last Admin: 03/10/17 22:06 Dose: Not Given Midodrine (Proamatine) 5 mg PO TID [facility] Pantoprazole Sodium (Protonix Ec Tab) 40 mg PO DAILY [facility] Sevelamer Carbonate (Renvela) 800 mg PO TID [facility] Physical Exam - Constitutional Appears: No Acute Distress - Head Exam Head Exam: ATRAUMATIC, NORMOCEPHALIC - Eye Exam Eye Exam: PERRL - ENT Exam ENT Exam: Mucous Membranes Moist - Respiratory Exam Additional comments: Decreased breath sounds. RLL mild crackles. - Cardiovascular Exam Cardiovascular Exam: Irregular Rhythm Results - Vital Signs Recent Vital Signs: Last Vital Signs Temp 97.6 F 03/11/17 08:18 Pulse 68 03/11/17 08:18 Resp 24 03/11/17 08:37 BP 106/87 03/11/17 08:37 Pulse Ox 100 03/11/17 08:18 - Labs Result Diagrams: 03/11/17 08:32 03/11/17 08:32 Labs: Laboratory Results - last 24 hr 03/10/17 03/11/17 03/11/17 21:05 06:04 07:31 WBC RBC Hgb Hct MCV MCH MCHC RDW Plt Count MPV Neut % (Auto) Lymph % (Auto) [place] % (Auto) Eos % (Auto) Baso % (Auto) Neut # Lymph # [place] # Eos # Baso # pO2 VBG pH VBG pCO2 VBG HCO3 VBG Total CO2 VBG O2 Sat (Calc) VBG Base Excess VBG Potassium Sodium Chloride Glucose Lactate Potassium Carbon Dioxide Anion Gap BUN Creatinine Est GFR ( Amer) Est GFR (Non-Af Amer) POC Glucose (mg/dL) 203 H 103 77 Random Glucose Calcium Total Bilirubin AST ALT Alkaline Phosphatase Total Creatine Kinase CK-MB (Mass) NT-Pro-B Natriuret Pep Total Protein Albumin Globulin Albumin/Globulin Ratio Venous Blood Potassium 03/11/17 03/11/17 03/11/17 08:27 08:32 08:32 WBC 6.2 RBC 3.05 L Hgb 10.3 L Hct 31.7 L MCV 103.9 H MCH 33.7 H MCHC 32.4 L RDW 21.4 H Plt Count 86 L MPV 8.8 Neut % (Auto) 86.6 H Lymph % (Auto) 3.1 L [place] % (Auto) 8.7 Eos % (Auto) 0.6 Baso % (Auto) 1.0 Neut # 5.4 Lymph # 0.2 L [place] # 0.5 Eos # 0.0 Baso # 0.1 pO2 33 VBG pH 7.21 L VBG pCO2 57 VBG HCO3 19.1 VBG Total CO2 24.5 VBG O2 Sat (Calc) 66.7 H VBG Base Excess -5.8 L VBG Potassium 4.7 Sodium 129.0 L 129 L Chloride 95.0 L 90 L Glucose 76 Lactate 2.4 H Potassium 4.8 Carbon Dioxide 21 L Anion Gap 23 H BUN 66 H Creatinine 5.1 H Est GFR ( Amer) 10 Est GFR (Non-Af Amer) 8 POC Glucose (mg/dL) Random Glucose 73 Calcium 9.9 Total Bilirubin 1.8 H AST 29 ALT 59 H Alkaline Phosphatase 134 H Total Creatine Kinase 28 L CK-MB (Mass) 3.46 H NT-Pro-B Natriuret Pep 36023 H Total Protein 5.9 L Albumin 3.4 L Globulin 2.5 Albumin/Globulin Ratio 1.4 Venous Blood Potassium 4.7 Assessment & Plan - Assessment and Plan (Free Text) Assessment: 76F with PMH ESRD on HD, afib, CHF with EF 55%, admitted for AMS and hypotension , found to have RLL pna. Cardio consulted for optimization of chf and afib. Plan: Diastolic CHF and afib: - Echo 02/05 shows EF 55%. Normal LV systolic function with paradoxical septal motion. L atrial volume index is markedly dilated, R atrium size is severely dilated, systolic function is severely reduced, R ventricle severely dilated. severe pulm HTN - EKG 03/10: HR 50, afib with slow ventricular response. - Trop 0.1540, BNP 33,800 on 03/10 - HR 50-68, hypotensive 88/36 on admission, s/p 500 ml bolus in ED. 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 - Currently rate controlled on Amiodarone 200mg PO daily, will hold Cardizem 30mg PO TID, in view of hypotension. - C/w NOAC eliquis 2.5mg PO BID and Midodrine 5mg PO TID for ionotrpic effect. - C/w antibiotics per primary team. Discussed with attending, Dr. Seo. Ilsa Gardner PGY1 - Date & Time Date: 03/11/17 Time: 09:46 <Dante Seo - Last Filed: 03/11/17 11:07> Meds - Medications Medications: Current Medications Amiodarone HCl (Cordarone) 200 mg PO DAILY [facility] Apixaban (Eliquis) 2.5 mg PO BID [facility] Cilostazol (Pletal) 100 mg PO BID [facility] Diltiazem HCl (Cardizem) 30 mg PO TID [facility] Famotidine (Pepcid) 20 mg PO DAILY [facility] Ceftriaxone Sodium 1 gm/ (Sodium Chloride) 100 mls @ 100 mls/hr IVPB DAILY [facility] Last Admin: 03/11/17 09:25 Dose: 100 mls/hr Azithromycin 500 mg/ Sodium (Chloride) 250 mls @ 250 mls/hr IVPB DAILY [facility] Last Admin: 03/11/17 09:28 Dose: 250 mls/hr Insulin Glargine (Lantus) 50 unit SC [facility] Last Admin: 03/10/17 22:06 Dose: Not Given Midodrine (Proamatine) 5 mg PO TID [facility] Pantoprazole Sodium (Protonix Ec Tab) 40 mg PO DAILY [facility] Sevelamer Carbonate (Renvela) 800 mg PO TID [facility] Results - Vital Signs Recent Vital Signs: Last Vital Signs Temp 97.6 F 03/11/17 08:18 Pulse 66 03/11/17 08:35 Resp 24 03/11/17 08:37 BP 106/87 03/11/17 08:37 Pulse Ox 100 03/11/17 08:18 - Labs Result Diagrams: 03/11/17 08:32 03/11/17 08:32 Labs: Laboratory Results - last 24 hr 03/10/17 03/11/17 03/11/17 21:05 06:04 07:31 WBC RBC Hgb Hct MCV MCH MCHC RDW Plt Count MPV Neut % (Auto) Lymph % (Auto) [place] % (Auto) Eos % (Auto) Baso % (Auto) Neut # Lymph # [place] # Eos # Baso # Neutrophils % (Manual) Lymphocytes % (Manual) Monocytes % (Manual) Basophils % (Manual) Nucleated RBC % Platelet Estimate Hypochromasia (manual) Poikilocytosis (manual Anisocytosis (manual) Target Cells Tear Drop Cells [place] Cells pO2 VBG pH VBG pCO2 VBG HCO3 VBG Total CO2 VBG O2 Sat (Calc) VBG Base Excess VBG Potassium Sodium Chloride Glucose Lactate Potassium Carbon Dioxide Anion Gap BUN Creatinine Est GFR ( Amer) Est GFR (Non-Af Amer) POC Glucose (mg/dL) 203 H 103 77 Random Glucose Calcium Total Bilirubin AST ALT Alkaline Phosphatase Total Creatine Kinase CK-MB (Mass) Troponin I, Quant NT-Pro-B Natriuret Pep Total Protein Albumin Globulin Albumin/Globulin Ratio Venous Blood Potassium 03/11/17 03/11/17 03/11/17 08:27 08:32 08:32 WBC 6.2 RBC 3.05 L Hgb 10.3 L Hct 31.7 L MCV 103.9 H MCH 33.7 H MCHC 32.4 L RDW 21.4 H Plt Count 86 L MPV 8.8 Neut % (Auto) 86.6 H Lymph % (Auto) 3.1 L [place] % (Auto) 8.7 Eos % (Auto) 0.6 Baso % (Auto) 1.0 Neut # 5.4 Lymph # 0.2 L [place] # 0.5 Eos # 0.0 Baso # 0.1 Neutrophils % (Manual) 87 H Lymphocytes % (Manual) 3 L Monocytes % (Manual) 9 Basophils % (Manual) 1 Nucleated RBC % 3 H Platelet Estimate Decreased L Hypochromasia (manual) Slight Poikilocytosis (manual Slight Anisocytosis (manual) Slight Target Cells Slight Tear Drop Cells Slight [place] Cells Slight pO2 33 VBG pH 7.21 L VBG pCO2 57 VBG HCO3 19.1 VBG Total CO2 24.5 VBG O2 Sat (Calc) 66.7 H VBG Base Excess -5.8 L VBG Potassium 4.7 Sodium 129.0 L 129 L Chloride 95.0 L 90 L Glucose 76 Lactate 2.4 H Potassium 4.8 Carbon Dioxide 21 L Anion Gap 23 H BUN 66 H Creatinine 5.1 H Est GFR ( Amer) 10 Est GFR (Non-Af Amer) 8 POC Glucose (mg/dL) Random Glucose 73 Calcium 9.9 Total Bilirubin 1.8 H AST 29 ALT 59 H Alkaline Phosphatase 134 H Total Creatine Kinase 28 L CK-MB (Mass) 3.46 H Troponin I, Quant 0.2030 H* NT-Pro-B Natriuret Pep 45310 H Total Protein 5.9 L Albumin 3.4 L Globulin 2.5 Albumin/Globulin Ratio 1.4 Venous Blood Potassium 4.7 Attending/Attestation - Attestation I have personally seen and examined this patient.: Yes I have fully participated in the care of the patient.: Yes I have reviewed all pertinent clinical information: Yes Notes (Text): 03/11/17 11:05 BP stable now with fluid bolus femerol access will slowly restart meds continue amiodorone
[2017-03-11] MEDS: Azithromycin 500 MG in Sodium Chloride 0.9% 250 ML IVPB SCH (09:28)
--- NOTE | 2017-03-11 09:30 | CP.PCM.PN ---
Subjective - Date & Time of Evaluation Date of Evaluation: 03/11/17 Time of Evaluation: 10:55 - Subjective Subjective: PGY-[address] Peterson Patient became lethargic and hypotensive this morning and rapid response was called at 7:25am. Patient's condition improved with bolus of IVF after placing a femoral central line. Currently she is resting in bed comfortably without any distress. She is awake but very lethargic. Unable to obtain detailed ROS due to patient's mentation. Objective - Vital Signs/Intake and Output Vital Signs (last 24 hours): Temp Pulse Resp BP Pulse Ox 97.6 F 68 24 106/87 100 03/11/17 08:18 03/11/17 08:18 03/11/17 08:37 03/11/17 08:37 03/11/17 08:18 - Medications Medications: Current Medications Amiodarone HCl (Cordarone) 200 mg PO DAILY [facility] Apixaban (Eliquis) 2.5 mg PO BID [facility] Cilostazol (Pletal) 100 mg PO BID [facility] Diltiazem HCl (Cardizem) 30 mg PO TID [facility] Famotidine (Pepcid) 20 mg PO DAILY [facility] Ceftriaxone Sodium 1 gm/ (Sodium Chloride) 100 mls @ 100 mls/hr IVPB DAILY [facility] Azithromycin 500 mg/ Sodium (Chloride) 250 mls @ 250 mls/hr IVPB DAILY [facility] Sodium Chloride (Sodium Chloride 0.9%) 250 mls @ 999 mls/hr IV .Q16M ONE Stop: 03/11/17 09:31 Insulin Glargine (Lantus) 50 unit SC [facility] Last Admin: 03/10/17 22:06 Dose: Not Given Midodrine (Proamatine) 5 mg PO TID [facility] Pantoprazole Sodium (Protonix Ec Tab) 40 mg PO DAILY [facility] Sevelamer Carbonate (Renvela) 800 mg PO TID [facility] - Labs Labs: 03/11/17 08:32 03/11/17 08:32 PT 15.6 SECONDS (9.7-12.2) H 03/10/17 16:18 INR 1.4 03/10/17 16:18 APTT 36 SECONDS (21-34) H 03/10/17 16:18 - Constitutional Appears: Non-toxic, No Acute Distress, Chronically Ill - Head Exam Head Exam: ATRAUMATIC, NORMAL INSPECTION - Eye Exam Eye Exam: Normal appearance, PERRL - ENT Exam ENT Exam: Mucous Membranes Moist - Neck Exam Neck Exam: Normal Inspection - Respiratory Exam Respiratory Exam: Decreased Breath Sounds, NORMAL BREATHING PATTERN - Cardiovascular Exam Cardiovascular Exam: +S1, +S2. absent: Murmur - GI/Abdominal Exam GI & Abdominal Exam: Soft, Normal Bowel Sounds. absent: Tenderness - Extremities Exam Extremities Exam: Pedal Edema. absent: Tenderness - Back Exam Back Exam: absent: CVA tenderness (L), CVA tenderness (R), paraspinal tenderness - Neurological Exam Neurological Exam: Alert, Awake - Psychiatric Exam Psychiatric exam: Normal Affect, Normal Mood - Skin Skin Exam: Dry, Intact Assessment and Plan - Assessment and Plan (Free Text) Assessment: Hypotension, lethargy -Hold Cardizem -Continue Midodrine -Monitor vitals -Pelvic xray showed well positioned femoral line ESRD -Follow nephrology consults -Patient usually gets HD at the nursing, did not receive due to hypotension yesterday -Schedule HD this afternoon -Continue sevelamer carbonate -BUN/Cr today 66/5.1 Pneumonia -Follow ID and Pulmonary recommendations -CXR in ED showed Suspect right lower lobe pneumonia and small right pleural effusion -Vancomycin given -Continue with azithromycin and cefepime -Follow up blood and sputum cultures CHF -Follow cardiology recommendations -Previous echo EF 55% in January 2017 -BNP today 07652 Afib -Follow cardiology recommendations -Continue Amiodarone, Eliquis, DM -Lantus 50 units SC HS -accucheck ACHS PVD -Continue cilostazol PPx -Pepcid -Eliquis -Patient is DNR/DNI Will discuss with attending physician Dr. Peterson
--- NOTE | 2017-03-11 10:26 | RAD ---
HISTORY: hypotension, s/p rapid response COMPARISON: 03/10/2017 FINDINGS: There is a left-sided subclavian vascular stent. LUNGS: There is interval worsening of consolidation in the right lung. There is pulmonary venous congestion in the left lung and probable left lower lobe atelectasis. PLEURA: No significant pleural effusion identified, no pneumothorax apparent. CARDIOVASCULAR: There is persistent moderate cardiomegaly with prominent central vasculature. Status post CABG. Atherosclerotic aortic arch calcifications are present. OSSEOUS STRUCTURES: No significant abnormalities. VISUALIZED UPPER ABDOMEN: Normal. OTHER FINDINGS: None. IMPRESSION: Interval worsening of right lung consolidation versus pulmonary edema. Persistent cardiomegaly, prominent central vasculature and pulmonary venous congestion.
--- NOTE | 2017-03-11 11:10 | RAD ---
PROCEDURE: Radiographs of the pelvis. HISTORY: s/p femoral line placement COMPARISON: None. FINDINGS: BONES: Examination technically limited due to body habitus. Pelvic Bones: Unremarkable. Hips: Grossly unremarkable. JOINTS: Sacroiliac Joints: Unremarkable. Pubic Symphysis: Unremarkable. OTHER FINDINGS: Right femoral venous catheter by report goes along the expected course of the femoral/iliac vein. Coarse pelvic calcifications likely calcified fibroid. IMPRESSION: Right femoral venous catheter noted.
--- NOTE | 2017-03-11 11:35 | CP.PCM.PN ---
Subjective - Date & Time of Evaluation Date of Evaluation: 03/11/17 Time of Evaluation: 14:00 - Subjective Subjective: clinically same Objective - Vital Signs/Intake and Output Vital Signs (last 24 hours): Temp Pulse Resp BP Pulse Ox 97.6 F 66 24 106/87 100 03/11/17 08:18 03/11/17 08:35 03/11/17 08:37 03/11/17 08:37 03/11/17 08:18 - Medications Medications: Current Medications Amiodarone HCl (Cordarone) 200 mg PO DAILY [facility] Apixaban (Eliquis) 2.5 mg PO BID [facility] Cilostazol (Pletal) 100 mg PO BID [facility] Diltiazem HCl (Cardizem) 30 mg PO TID [facility] Famotidine (Pepcid) 20 mg PO DAILY [facility] Ceftriaxone Sodium 1 gm/ (Sodium Chloride) 100 mls @ 100 mls/hr IVPB DAILY [facility] Last Admin: 03/11/17 09:25 Dose: 100 mls/hr Azithromycin 500 mg/ Sodium (Chloride) 250 mls @ 250 mls/hr IVPB DAILY [facility] Last Admin: 03/11/17 09:28 Dose: 250 mls/hr Insulin Glargine (Lantus) 50 unit SC HS [facility] Last Admin: 03/10/17 22:06 Dose: Not Given Midodrine (Proamatine) 5 mg PO TID [facility] Pantoprazole Sodium (Protonix Ec Tab) 40 mg PO DAILY [facility] Sevelamer Carbonate (Renvela) 800 mg PO TID [facility] - Labs Labs: 03/11/17 08:32 03/11/17 08:32 PT 15.6 SECONDS (9.7-12.2) H 03/10/17 16:18 INR 1.4 03/10/17 16:18 APTT 36 SECONDS (21-34) H 03/10/17 16:18 - Constitutional Appears: Well - Head Exam Head Exam: ATRAUMATIC, NORMAL INSPECTION, NORMOCEPHALIC - Eye Exam Eye Exam: EOMI, Normal appearance, PERRL Pupil Exam: NORMAL ACCOMODATION, PERRL - ENT Exam ENT Exam: Mucous Membranes Moist, Normal Exam - Neck Exam Neck Exam: Full ROM, Normal Inspection. absent: Lymphadenopathy - Respiratory Exam Respiratory Exam: Decreased Breath Sounds - Cardiovascular Exam Cardiovascular Exam: REGULAR RHYTHM, +S1, +S2 - GI/Abdominal Exam GI & Abdominal Exam: Soft, Diminished Bowel Sounds - Rectal Exam Rectal Exam: Deferred Assessment and Plan (1) Afib Status: Acute (2) CHF (congestive heart failure) Status: Acute (3) Uncontrolled diabetes mellitus Status: Acute (4) ESRD (end stage renal disease) on dialysis Status: Chronic (5) Acute [id number] elevation myocardial infarction Status: Acute (6) Acute pulmonary edema with congestive heart failure Status: Acute (7) Atrial flutter with rapid ventricular response Status: Acute (8) CAD (coronary artery disease) of artery bypass graft Status: Acute (9) Cardiomyopathy Status: Acute (10) Congestive heart failure Status: Acute (11) Diabetic nephropathy associated with type 2 diabetes mellitus Status: Acute (12) Diarrhea Status: Acute (13) Elevated d-dimer Status: Acute (14) Elevated liver enzymes Status: Acute (15) Heart failure Status: Acute (16) Ischemic cardiomyopathy Status: Acute (17) New onset atrial flutter Status: Acute (18) Opacity of lung on imaging study Status: Acute (19) Oxygen desaturation Status: Acute (20) Pneumonia Status: Acute (21) Prophylactic measure Status: Acute (22) CAD (coronary artery disease) Status: Chronic (23) CHF (congestive heart failure) Status: Chronic (24) Diabetes Status: Chronic (25) Diabetic neuropathy Status: Chronic (26) HLD (hyperlipidemia) Status: Chronic (27) HTN (hypertension) Status: Chronic (28) PVD (peripheral vascular disease) Status: Chronic - Assessment and Plan (Free Text) Assessment: Case seen and discussed with the staff status post ID Status post pulmonary Status post renal Status post cardiology Overall poor prognosis Continue with Eliquis Dialysis Midodrine monitor the vital signs blood pressure stable to me today Monitor the electrolytes as serum sodium was 129 Continue same
[2017-03-11] MEDS: Cilostazol 100 mg Tab UD PO SCH ×2 (11:43→18:25)
[2017-03-11] MEDS: Pantoprazole 40 mg EC Tab PO SCH ×2 (11:43→14:46)
--- NOTE | 2017-03-11 12:21 | CARD ---
APPROVED REPORT EKG Measurement Heart [id number] <Conclusion> Atrial fibrillation with slow ventricular response Right axis deviation Marked ST abnormality, possible lateral subendocardial injury Abnormal ECG
--- NOTE | 2017-03-11 14:07 | CP.PCM.CON ---
History of Present Illness - History of Present Illness History of Present Illness: 76 yo [place] female, known to our group. Hx of ESRD, DM, ischemic cardiomyopathy, PVD, afib. Recent failure to thrive with persistent afib and RVR. Now referred from outpatient HD for hypotension and inability to dialyze. [employer] here with 2 liters of fluid given. Pt lethargic on arrival, but now more awake. PBNP quite elevated. Cxray with PVC and consolidation of right lung. ABG with ph of 7.17 and then 7.23. No fevers documented. No cough described. at bedside. Review of Systems - Review of Systems Systems not reviewed;Unavailable: Altered Mental Status All systems: reviewed and no additional remarkable complaints except Review of Systems: unable to obtain due to poor memory Past Patient History - Infectious Disease Hx of Infectious Diseases: None - Past Medical History & Family History Past Medical History?: Yes - Past Social History Smoking Status: Never Smoked - CARDIAC Hx Atrial Fibrillation: Yes Hx Cardia Arrhythmia: Yes Hx Hypercholesterolemia: Yes Hx Hypertension: Yes - PULMONARY Hx Respiratory Disorders: Yes Hx Pulmonary Edema: Yes - NEUROLOGICAL Hx Neurological Disorder: Yes Hx Dizziness: Yes - HEENT Hx HEENT Problems: Yes Hx Cataracts: Yes (Left and right cataract extraction in 2011) Hx Glaucoma: Yes - RENAL Hx Chronic Kidney Disease: Yes Date of Last Dialysis Treatment: 03/10/17 (Not performed due to hypotension) - ENDOCRINE/METABOLIC Hx Endocrine Disorders: Yes Hx Diabetes Mellitus Type 2: Yes - HEMATOLOGICAL/ONCOLOGICAL Hx Anemia: Yes - INTEGUMENTARY Hx Dermatological Problems: No - MUSCULOSKELETAL/RHEUMATOLOGICAL Hx Arthritis: Yes - GASTROINTESTINAL Hx Gastritis: Yes - GENITOURINARY/GYNECOLOGICAL Hx Genitourinary Disorders: No - PSYCHIATRIC Hx Substance Use: No - SURGICAL HISTORY Hx Coronary Artery Bypass Graft: Yes (CABG x 4 on 03/06/2009.) - ANESTHESIA Hx Anesthesia: Yes Hx Anesthesia Reactions: No Hx Malignant Hyperthermia: No Has any member of the family had a problem w/ anesthesia?: No Meds Allergies/Adverse Reactions: Allergies Allergy/AdvReac Type Severity Reaction Status Date / Time No Known Allergies Allergy Verified 03/10/17 15:33 - Medications Medications: Current Medications Amiodarone HCl (Cordarone) 200 mg PO DAILY [facility] Last Admin: 03/11/17 13:40 Dose: 200 mg Apixaban (Eliquis) 2.5 mg PO BID [facility] Last Admin: 03/11/17 11:55 Dose: Not Given Cilostazol (Pletal) 100 mg PO BID [facility] Last Admin: 03/11/17 11:43 Dose: Not Given Diltiazem HCl (Cardizem) 30 mg PO TID [facility] Famotidine (Pepcid) 20 mg PO DAILY [facility] Last Admin: 03/11/17 13:40 Dose: 20 mg Ceftriaxone Sodium 1 gm/ (Sodium Chloride) 100 mls @ 100 mls/hr IVPB DAILY [facility] Last Admin: 03/11/17 09:25 Dose: 100 mls/hr Azithromycin 500 mg/ Sodium (Chloride) 250 mls @ 250 mls/hr IVPB DAILY [facility] Last Admin: 03/11/17 09:28 Dose: 250 mls/hr Insulin Glargine (Lantus) 50 unit SC [facility] Last Admin: 03/10/17 22:06 Dose: Not Given Midodrine (Proamatine) 5 mg PO TID [facility] Last Admin: 03/11/17 13:40 Dose: 5 mg Pantoprazole Sodium (Protonix Ec Tab) 40 mg PO DAILY [facility] Sevelamer Carbonate (Renvela) 800 mg PO TID [facility] Last Admin: 03/11/17 13:40 Dose: 800 mg Physical Exam - Constitutional Appears: Confused, Chronically Ill - Head Exam Head Exam: ATRAUMATIC Additional comments: facial swelling - Eye Exam Eye Exam: EOMI, Normal appearance - ENT Exam ENT Exam: Mucous Membranes Moist - Neck Exam Neck exam: Positive for: Full Rom. Negative for: Lymphadenopathy - Respiratory Exam Respiratory Exam: Decreased Breath Sounds. absent: Accessory Muscle Use, Rales , Rhonchi - Cardiovascular Exam Cardiovascular Exam: REGULAR RHYTHM. absent: Rubs - Extremities Exam Extremities exam: Positive for: pedal edema - Neurological Exam Neurological exam: Alert Additional comments: oriented to person only - Psychiatric Exam Psychiatric exam: Flat Affect Results - Vital Signs Recent Vital Signs: Last Vital Signs Temp 97.6 F 03/11/17 08:18 Pulse 61 03/11/17 13:05 Resp 20 03/11/17 13:05 BP 82/45 L 03/11/17 13:05 Pulse Ox 99 03/11/17 13:05 - Labs Result Diagrams: 03/11/17 08:32 03/11/17 08:32 Labs: Laboratory Results - last 24 hr 03/10/17 03/11/17 03/11/17 21:05 06:04 07:31 WBC RBC Hgb Hct MCV MCH MCHC RDW Plt Count MPV Neut % (Auto) Lymph % (Auto) [place] % (Auto) Eos % (Auto) Baso % (Auto) Neut # Lymph # [place] # Eos # Baso # Neutrophils % (Manual) Lymphocytes % (Manual) Monocytes % (Manual) Basophils % (Manual) Nucleated RBC % Platelet Estimate Hypochromasia (manual) Poikilocytosis (manual Anisocytosis (manual) Target Cells Tear Drop Cells [place] Cells pO2 VBG pH VBG pCO2 VBG HCO3 VBG Total CO2 VBG O2 Sat (Calc) VBG Base Excess VBG Potassium Sodium Chloride Glucose Lactate Potassium Carbon Dioxide Anion Gap BUN Creatinine Est GFR ( Amer) Est GFR (Non-Af Amer) POC Glucose (mg/dL) 203 H 103 77 Random Glucose Calcium Total Bilirubin AST ALT Alkaline Phosphatase Total Creatine Kinase CK-MB (Mass) Troponin I, Quant NT-Pro-B Natriuret Pep Total Protein Albumin Globulin Albumin/Globulin Ratio Venous Blood Potassium 03/11/17 03/11/17 03/11/17 08:27 08:32 08:32 WBC 6.2 RBC 3.05 L Hgb 10.3 L Hct 31.7 L MCV 103.9 H MCH 33.7 H MCHC 32.4 L RDW 21.4 H Plt Count 86 L MPV 8.8 Neut % (Auto) 86.6 H Lymph % (Auto) 3.1 L [place] % (Auto) 8.7 Eos % (Auto) 0.6 Baso % (Auto) 1.0 Neut # 5.4 Lymph # 0.2 L [place] # 0.5 Eos # 0.0 Baso # 0.1 Neutrophils % (Manual) 87 H Lymphocytes % (Manual) 3 L Monocytes % (Manual) 9 Basophils % (Manual) 1 Nucleated RBC % 3 H Platelet Estimate Decreased L Hypochromasia (manual) Slight Poikilocytosis (manual Slight Anisocytosis (manual) Slight Target Cells Slight Tear Drop Cells Slight [place] Cells Slight pO2 33 VBG pH 7.21 L VBG pCO2 57 VBG HCO3 19.1 VBG Total CO2 24.5 VBG O2 Sat (Calc) 66.7 H VBG Base Excess -5.8 L VBG Potassium 4.7 Sodium 129.0 L 129 L Chloride 95.0 L 90 L Glucose 76 Lactate 2.4 H Potassium 4.8 Carbon Dioxide 21 L Anion Gap 23 H BUN 66 H Creatinine 5.1 H Est GFR ( Amer) 10 Est GFR (Non-Af Amer) 8 POC Glucose (mg/dL) Random Glucose 73 Calcium 9.9 Total Bilirubin 1.8 H AST 29 ALT 59 H Alkaline Phosphatase 134 H Total Creatine Kinase 28 L CK-MB (Mass) 3.46 H Troponin I, Quant 0.2030 H* NT-Pro-B Natriuret Pep 11298 H Total Protein 5.9 L Albumin 3.4 L Globulin 2.5 Albumin/Globulin Ratio 1.4 Venous Blood Potassium 4.7 03/11/17 11:12 WBC RBC Hgb Hct MCV MCH MCHC RDW Plt Count MPV Neut % (Auto) Lymph % (Auto) [place] % (Auto) Eos % (Auto) Baso % (Auto) Neut # Lymph # [place] # Eos # Baso # Neutrophils % (Manual) Lymphocytes % (Manual) Monocytes % (Manual) Basophils % (Manual) Nucleated RBC % Platelet Estimate Hypochromasia (manual) Poikilocytosis (manual Anisocytosis (manual) Target Cells Tear Drop Cells [place] Cells pO2 VBG pH VBG pCO2 VBG HCO3 VBG Total CO2 VBG O2 Sat (Calc) VBG Base Excess VBG Potassium Sodium Chloride Glucose Lactate Potassium Carbon Dioxide Anion Gap BUN Creatinine Est GFR ( Amer) Est GFR (Non-Af Amer) POC Glucose (mg/dL) 115 H Random Glucose Calcium Total Bilirubin AST ALT Alkaline Phosphatase Total Creatine Kinase CK-MB (Mass) Troponin I, Quant NT-Pro-B Natriuret Pep Total Protein Albumin Globulin Albumin/Globulin Ratio Venous Blood Potassium Assessment & Plan - Assessment and Plan (Free Text) Assessment: esrd dm htn ischemic cm afib with rvr poor mental status, noted on previous hospitalization now hypotensive with metabolic and respiratory acidosis r/o sepsis, on empiric AB endstage heart with limited medical options poor prognosis attempt HD tomorrow hold further ivf for now
--- NOTE | 2017-03-11 16:01 | CP.PCM.CON ---
History of Present Illness - History of Present Illness History of Present Illness: Reason for consult: Shortness of breath Patient is a 76 year old female who presented to the emergency department yesterday from hemodialysis for hypotension, lethargy and bradycardia. She was subsequently diagnosed with diastolic CHF with an EF of 55%. Rapid response was called this morning due to hypotension. A femoral central line was placed and patient was stabilized with 250cc NS. Patient is currently on high flow oxygen via nasal cannula with a oxygen saturation of 97%. Most recent CXR showed venous congestion and possible pneumonia. Currently patient is comfortably laying flat in bed. She is responsive but lethargic. Patient reported productive cough of white sputum. Denied chest pain, dyspnea, f/c/d/ c. Med Hx: Anemia, Arthritis , Afib Gastritis, HTN, hypercholesterolemia, ESRD ( anuric) on hemodialysis, CKD, Diabetes Mellitus Surg Hx: CABGx4 (2008) Family Hx: HTN Social: denies tobacco, ETOH, and drugs Allergies: KNDA Review of Systems - Review of Systems Systems not reviewed;Unavailable: Altered Mental Status Past Patient History - Infectious Disease Hx of Infectious Diseases: None - Past Medical History & Family History Past Medical History?: Yes - Past Social History Smoking Status: Never Smoked - CARDIAC Hx Atrial Fibrillation: Yes Hx Cardia Arrhythmia: Yes Hx Hypercholesterolemia: Yes Hx Hypertension: Yes - PULMONARY Hx Respiratory Disorders: Yes Hx Pulmonary Edema: Yes - NEUROLOGICAL Hx Neurological Disorder: Yes Hx Dizziness: Yes - HEENT Hx HEENT Problems: Yes Hx Cataracts: Yes (Left and right cataract extraction in 2011) Hx Glaucoma: Yes - RENAL Hx Chronic Kidney Disease: Yes Date of Last Dialysis Treatment: 03/10/17 (Not performed due to hypotension) - ENDOCRINE/METABOLIC Hx Endocrine Disorders: Yes Hx Diabetes Mellitus Type 2: Yes - HEMATOLOGICAL/ONCOLOGICAL Hx Anemia: Yes - INTEGUMENTARY Hx Dermatological Problems: No - MUSCULOSKELETAL/RHEUMATOLOGICAL Hx Arthritis: Yes - GASTROINTESTINAL Hx Gastritis: Yes - GENITOURINARY/GYNECOLOGICAL Hx Genitourinary Disorders: No - PSYCHIATRIC Hx Substance Use: No - SURGICAL HISTORY Hx Coronary Artery Bypass Graft: Yes (CABG x 4 on 03/06/2009.) - ANESTHESIA Hx Anesthesia: Yes Hx Anesthesia Reactions: No Hx Malignant Hyperthermia: No Has any member of the family had a problem w/ anesthesia?: No Meds Allergies/Adverse Reactions: Allergies Allergy/AdvReac Type Severity Reaction Status Date / Time No Known Allergies Allergy Verified 03/10/17 15:33 - Medications Medications: Current Medications Amiodarone HCl (Cordarone) 200 mg PO DAILY [facility] Last Admin: 03/11/17 13:40 Dose: 200 mg Apixaban (Eliquis) 2.5 mg PO BID [facility] Last Admin: 03/11/17 11:55 Dose: Not Given Cilostazol (Pletal) 100 mg PO BID [facility] Last Admin: 03/11/17 11:43 Dose: Not Given Diltiazem HCl (Cardizem) 30 mg PO TID [facility] Famotidine (Pepcid) 20 mg PO DAILY [facility] Last Admin: 03/11/17 13:40 Dose: 20 mg Ceftriaxone Sodium 1 gm/ (Sodium Chloride) 100 mls @ 100 mls/hr IVPB DAILY [facility] Last Admin: 03/11/17 09:25 Dose: 100 mls/hr Azithromycin 500 mg/ Sodium (Chloride) 250 mls @ 250 mls/hr IVPB DAILY [facility] Last Admin: 03/11/17 09:28 Dose: 250 mls/hr Insulin Glargine (Lantus) 50 unit SC [facility] Last Admin: 03/10/17 22:06 Dose: Not Given Midodrine (Proamatine) 5 mg PO TID [facility] Last Admin: 03/11/17 13:40 Dose: 5 mg Pantoprazole Sodium (Protonix Ec Tab) 40 mg PO DAILY [facility] Last Admin: 03/11/17 14:46 Dose: 40 mg Sevelamer Carbonate (Renvela) 800 mg PO TID [facility] Last Admin: 03/11/17 13:40 Dose: 800 mg Physical Exam - Head Exam Head Exam: ATRAUMATIC, NORMOCEPHALIC - ENT Exam ENT Exam: Mucous Membranes Moist - Neck Exam Neck exam: Positive for: Normal Inspection - Respiratory Exam Respiratory Exam: Decreased Breath Sounds - Cardiovascular Exam Cardiovascular Exam: REGULAR RHYTHM - GI/Abdominal Exam GI & Abdominal Exam: Normal Bowel Sounds, Soft Results - Vital Signs Recent Vital Signs: Last Vital Signs Temp 97.6 F 03/11/17 08:18 Pulse 61 03/11/17 13:05 Resp 20 03/11/17 13:05 BP 82/45 L 03/11/17 13:05 Pulse Ox 99 03/11/17 13:05 - Labs Result Diagrams: 03/18/17 18:59 03/18/17 18:59 Labs: Laboratory Results - last 24 hr 03/10/17 03/11/17 03/11/17 21:05 06:04 07:31 WBC RBC Hgb Hct MCV MCH MCHC RDW Plt Count MPV Neut % (Auto) Lymph % (Auto) [place] % (Auto) Eos % (Auto) Baso % (Auto) Neut # Lymph # [place] # Eos # Baso # Neutrophils % (Manual) Lymphocytes % (Manual) Monocytes % (Manual) Basophils % (Manual) Nucleated RBC % Platelet Estimate Hypochromasia (manual) Poikilocytosis (manual Anisocytosis (manual) Target Cells Tear Drop Cells [place] Cells pO2 VBG pH VBG pCO2 VBG HCO3 VBG Total CO2 VBG O2 Sat (Calc) VBG Base Excess VBG Potassium Sodium Chloride Glucose Lactate Potassium Carbon Dioxide Anion Gap BUN Creatinine Est GFR ( Amer) Est GFR (Non-Af Amer) POC Glucose (mg/dL) 203 H 103 77 Random Glucose Calcium Total Bilirubin AST ALT Alkaline Phosphatase Total Creatine Kinase CK-MB (Mass) Troponin I, Quant NT-Pro-B Natriuret Pep Total Protein Albumin Globulin Albumin/Globulin Ratio Venous Blood Potassium 03/11/17 03/11/17 03/11/17 08:27 08:32 08:32 WBC 6.2 RBC 3.05 L Hgb 10.3 L Hct 31.7 L MCV 103.9 H MCH 33.7 H MCHC 32.4 L RDW 21.4 H Plt Count 86 L MPV 8.8 Neut % (Auto) 86.6 H Lymph % (Auto) 3.1 L [place] % (Auto) 8.7 Eos % (Auto) 0.6 Baso % (Auto) 1.0 Neut # 5.4 Lymph # 0.2 L [place] # 0.5 Eos # 0.0 Baso # 0.1 Neutrophils % (Manual) 87 H Lymphocytes % (Manual) 3 L Monocytes % (Manual) 9 Basophils % (Manual) 1 Nucleated RBC % 3 H Platelet Estimate Decreased L Hypochromasia (manual) Slight Poikilocytosis (manual Slight Anisocytosis (manual) Slight Target Cells Slight Tear Drop Cells Slight Jose Cells Slight pO2 33 VBG pH 7.21 L VBG pCO2 57 VBG HCO3 19.1 VBG Total CO2 24.5 VBG O2 Sat (Calc) 66.7 H VBG Base Excess -5.8 L VBG Potassium 4.7 Sodium 129.0 L 129 L Chloride 95.0 L 90 L Glucose 76 Lactate 2.4 H Potassium 4.8 Carbon Dioxide 21 L Anion Gap 23 H BUN 66 H Creatinine 5.1 H Est GFR ( Amer) 10 Est GFR (Non-Af Amer) 8 POC Glucose (mg/dL) Random Glucose 73 Calcium 9.9 Total Bilirubin 1.8 H AST 29 ALT 59 H Alkaline Phosphatase 134 H Total Creatine Kinase 28 L CK-MB (Mass) 3.46 H Troponin I, Quant 0.2030 H* NT-Pro-B Natriuret Pep 36830 H Total Protein 5.9 L Albumin 3.4 L Globulin 2.5 Albumin/Globulin Ratio 1.4 Venous Blood Potassium 4.7 03/11/17 11:12 WBC RBC Hgb Hct MCV MCH MCHC RDW Plt Count MPV Neut % (Auto) Lymph % (Auto) [place] % (Auto) Eos % (Auto) Baso % (Auto) Neut # Lymph # [place] # Eos # Baso # Neutrophils % (Manual) Lymphocytes % (Manual) Monocytes % (Manual) Basophils % (Manual) Nucleated RBC % Platelet Estimate Hypochromasia (manual) Poikilocytosis (manual Anisocytosis (manual) Target Cells Tear Drop Cells [place] Cells pO2 VBG pH VBG pCO2 VBG HCO3 VBG Total CO2 VBG O2 Sat (Calc) VBG Base Excess VBG Potassium Sodium Chloride Glucose Lactate Potassium Carbon Dioxide Anion Gap BUN Creatinine Est GFR ( Amer) Est GFR (Non-Af Amer) POC Glucose (mg/dL) 115 H Random Glucose Calcium Total Bilirubin AST ALT Alkaline Phosphatase Total Creatine Kinase CK-MB (Mass) Troponin I, Quant NT-Pro-B Natriuret Pep Total Protein Albumin Globulin Albumin/Globulin Ratio Venous Blood Potassium Assessment & Plan (1) ESRD (end stage renal disease) on dialysis Status: Chronic Comment: Under emergent conditions triple-lumen catheter placed and right femoral vein under aseptic conditions and local anesthesia for hypotension (2) Pneumonia Status: Acute Comment: continue antibiotics for pneumonia. Followup chest x-ray. Hypotension secondary to possible sepsis. Continue hemodialysis as tolerated (3) Cardiomyopathy Status: Acute
--- NOTE | 2017-03-11 16:57 | CP.PCM.CON ---
History of Present Illness - History of Present Illness History of Present Illness: 76 yo filpino female with Hx of ESRD, DM, ischemic cardiomyopathy, PVD, afib. Recent failure to thrive with persistent afib and RVR. Admitted from outpatient HD for hypotension and inability to dialyze. [employer] here with 2 liters of fluid given. Pt lethargic on arrival, but now more awake. PBNP quite elevated. Cxray with PVC and consolidation of right lung. ABG with ph of 7.17 and then 7.23. remains weak lethargic and confused family at the bedside IV antibiotics in progress Review of Systems - Constitutional Constitutional: As Per HPI, Fever, Lethargy - EENT Eyes: absent: As Per HPI, Blind Spots, Blurred Vision, Change in Vision, Decreased Night Vision, Diplopia, Discharge, Dry Eye, Exophthalmos, Floaters, Irritation, Itchy Eyes, Loss of Peripheral Vision, Pain, Photophobia, Requires Corrective Lenses, Sees Flashes, Spots in Vision, Tunnel Vision, Other Visual Disturbances, Loss of Vision, Other Ears: absent: As Per HPI, Decreased Hearing, Ear Discharge, Ear Pain, Tinnitus, Abnormal Hearing, Disequilibrium, Dizziness, Other Nose/Mouth/Throat: absent: As Per HPI, Epistaxis, Nasal Congestion, Nasal Discharge, Nasal Obstruction, Nasal Trauma, Nose Pain, Post Nasal Drip, Sinus Pain, Sinus Pressure, Bleeding Gums, Change in Voice, Dental Pain, Dry Mouth, Dysphagia, Halitosis, Hoarsness, Lip Swelling, Mouth Lesions, Mouth Pain, Odynophagia, Sore Throat, Throat Swelling, Tongue Swelling, Facial Pain, Neck Pain, Neck Mass, Other - Breasts Breasts: absent: As Per HPI, Change in Shape, Mass, Pain, Nipple Discharge, Nipple Inversion, Skin Changes, Swelling, Other - Cardiovascular Cardiovascular: As Per HPI - Respiratory Respiratory: As Per HPI, Cough, Dyspnea - Gastrointestinal Gastrointestinal: absent: As Per HPI, Abdominal Pain, Belching, Bloating, Change in Bowel Habits, Change in Stool Character, Coffee Ground Emesis, Constipation, Cramping, Diarrhea, Dyspepsia, Dysphagia, Early Satiety, Excessive Flatus, Fecal Incontinence, Heartburn, Hematemesis, Hematochezia, Loose Stools, Melena, Nausea, Odynophagia, Temesmus, Vomiting, Other - Genitourinary Genitourinary: absent: As Per HPI, Change in Urinary Stream, Difficulty Urinating, Dysuria, Flank Pain, Hematuria, Pyuria, Nocturia, Urinary Incontinence, Urinary Frequency, Urinary Hesitance, Urinary Urgency, Voiding Freq/Small Amts, Freq UTI, Hx Renal/Bladder Calculi, Hx /Renal Surgery, Bladder Distension, Other - Reproductive: Female Reproductive:Female: absent: As Per HPI, Amenorrhea, Amenorrhea/ Control, Currently Menstual, Cycle <21 Days, Cycle >35 Days, Cycle Variable, Menses 1-7 Days, Menses >/= 8 Days, Menses Variable, Cycle > 4 Weeks Between, No Menses for 6 Months, Heavy Menses, Light Menses, Normal Menses, Spotting Between Cycles , S/P Hysterectomy, Menopausal, Post Menopausal, Premenarche, Abnormal Vaginal Bleeding, Dysmenorrhea, Dyspareunia, Genital Lesions, Genital Pruritis, Pelvic Pain, Prolapse Symptoms, Sexual Dysfunction, Vaginal Discharge, Vaginal Dryness , Vaginal Odor, Vaginal Pruritis, Other - Menstruation Menstruation: absent: As Per HPI, Amenorrhea, Amenorrhea/ Control, Currently Menstual, Cycle <21 Days, Cycle >35 Days, Cycle Variable, Menses 1-7 Days, Menses >/= 8 Days, Menses Variable, Cycle > 4 Weeks Between, No Menses for 6 Months, Heavy Menses, Light Menses, Normal Menses, Spotting Between Cycles , S/P Hysterectomy, Menopausal, Post Menopausal, Premenarche, Abnormal Vaginal Bleeding, Dysmenorrhea, Other - Musculoskeletal Musculoskeletal: As Per HPI - Integumentary Integumentary: absent: As Per HPI, Acne, Alopecia, Bleeding Lesions, Change in Hair, Change in Nails, Change in Pigmentation, Changing Lesions, Dry Skin, Erythema, Furuncle, Hirsutism, Lesions, New Lesions, Non-Healing Lesions, Photosensitivity, Pruritus, Rash, Skin Pain, Skin Ulcer, Sores, Striae, Swelling , Unusual Bruising, Wounds, Jaundice, Other - Neurological Neurological: As Per HPI - Psychiatric Psychiatric: absent: As Per HPI, Abnormal Sleep Pattern, Anhedonia, Anxiety, Auditory Hallucinations, Behavioral Changes, Change in Appetite, Change in Libido, Confusion, Depression, Difficulty Concentrating, Hallucinations, Homicidal Ideation, Hopelessness, Irritability, Memory Loss, Mood Swings, Panic Attacks, Paranoia, Suicidal Ideation, Visual Hallucinations, Tactile Hallucinations, Other - Endocrine Endocrine: absent: As Per HPI, Change in Body Appearance, Change in Libido, Cold Intolorance, Deepening of Voice, Excessive Sweating, Fatigue, Flushing, Heat Intolorance, Increase in Ring/Shoe/Hat Size, Palpitations, Polydipsia, Polyphagia, Polyuria, Other Past Patient History - Infectious Disease Hx of Infectious Diseases: None - Past Medical History & Family History Past Medical History?: Yes - Past Social History Smoking Status: Never Smoked - CARDIAC Hx Atrial Fibrillation: Yes Hx Cardia Arrhythmia: Yes Hx Hypercholesterolemia: Yes Hx Hypertension: Yes - PULMONARY Hx Respiratory Disorders: Yes Hx Pulmonary Edema: Yes - NEUROLOGICAL Hx Neurological Disorder: Yes Hx Dizziness: Yes - HEENT Hx HEENT Problems: Yes Hx Cataracts: Yes (Left and right cataract extraction in 2011) Hx Glaucoma: Yes - RENAL Hx Chronic Kidney Disease: Yes Date of Last Dialysis Treatment: 03/10/17 (Not performed due to hypotension) - ENDOCRINE/METABOLIC Hx Endocrine Disorders: Yes Hx Diabetes Mellitus Type 2: Yes - HEMATOLOGICAL/ONCOLOGICAL Hx Anemia: Yes - INTEGUMENTARY Hx Dermatological Problems: No - MUSCULOSKELETAL/RHEUMATOLOGICAL Hx Arthritis: Yes - GASTROINTESTINAL Hx Gastritis: Yes - GENITOURINARY/GYNECOLOGICAL Hx Genitourinary Disorders: No - PSYCHIATRIC Hx Substance Use: No - SURGICAL HISTORY Hx Coronary Artery Bypass Graft: Yes (CABG x 4 on 03/06/2009.) - ANESTHESIA Hx Anesthesia: Yes Hx Anesthesia Reactions: No Hx Malignant Hyperthermia: No Has any member of the family had a problem w/ anesthesia?: No Meds Allergies/Adverse Reactions: Allergies Allergy/AdvReac Type Severity Reaction Status Date / Time No Known Allergies Allergy Verified 03/10/17 15:33 - Medications Medications: Current Medications Amiodarone HCl (Cordarone) 200 mg PO DAILY [facility] Last Admin: 03/11/17 13:40 Dose: 200 mg Apixaban (Eliquis) 2.5 mg PO BID [facility] Last Admin: 03/11/17 11:55 Dose: Not Given Cilostazol (Pletal) 100 mg PO BID [facility] Last Admin: 03/11/17 11:43 Dose: Not Given Diltiazem HCl (Cardizem) 30 mg PO TID [facility] Famotidine (Pepcid) 20 mg PO DAILY [facility] Last Admin: 03/11/17 13:40 Dose: 20 mg Ceftriaxone Sodium 1 gm/ (Sodium Chloride) 100 mls @ 100 mls/hr IVPB DAILY [facility] Last Admin: 03/11/17 09:25 Dose: 100 mls/hr Azithromycin 500 mg/ Sodium (Chloride) 250 mls @ 250 mls/hr IVPB DAILY [facility] Last Admin: 03/11/17 09:28 Dose: 250 mls/hr Insulin Glargine (Lantus) 50 unit SC HS [facility] Last Admin: 03/10/17 22:06 Dose: Not Given Midodrine (Proamatine) 5 mg PO TID [facility] Last Admin: 03/11/17 13:40 Dose: 5 mg Pantoprazole Sodium (Protonix Ec Tab) 40 mg PO DAILY [facility] Last Admin: 03/11/17 14:46 Dose: 40 mg Sevelamer Carbonate (Renvela) 800 mg PO TID [facility] Last Admin: 03/11/17 13:40 Dose: 800 mg Physical Exam - Constitutional Appears: Toxic, Confused, Cachectic, Chronically Ill - Head Exam Head Exam: ATRAUMATIC, NORMAL INSPECTION, NORMOCEPHALIC - Eye Exam Eye Exam: PERRL. absent: Scleral icterus - ENT Exam ENT Exam: Mucous Membranes Dry, Normal External Ear Exam - Neck Exam Neck exam: Negative for: Lymphadenopathy, Thyromegaly - Respiratory Exam Respiratory Exam: Decreased Breath Sounds, Rhonchi - Cardiovascular Exam Cardiovascular Exam: REGULAR RHYTHM, +S1, +S2 - GI/Abdominal Exam GI & Abdominal Exam: Diminished Bowel Sounds, Soft. absent: Tenderness - Rectal Exam Rectal Exam: Deferred - Exam Exam: NORMAL INSPECTION - Extremities Exam Extremities exam: Positive for: pedal edema, tenderness. Negative for: calf tenderness, pedal pulses present - Back Exam Back exam: absent: CVA tenderness (L), CVA tenderness (R), paraspinal tenderness - Neurological Exam Neurological exam: Alert, Altered, CN II-XII Intact - Psychiatric Exam Psychiatric exam: Depressed - Skin Skin Exam: Dry, Intact Results - Vital Signs Recent Vital Signs: Last Vital Signs Temp 97.4 F L 03/11/17 16:06 Pulse 60 03/11/17 16:06 Resp 18 03/11/17 16:06 BP 122/70 03/11/17 16:06 Pulse Ox 99 03/11/17 16:06 - Labs Result Diagrams: 03/11/17 08:32 03/11/17 08:32 Labs: Laboratory Results - last 24 hr 03/10/17 03/11/17 03/11/17 21:05 06:04 07:31 WBC RBC Hgb Hct MCV MCH MCHC RDW Plt Count MPV Neut % (Auto) Lymph % (Auto) [place] % (Auto) Eos % (Auto) Baso % (Auto) Neut # Lymph # [place] # Eos # Baso # Neutrophils % (Manual) Lymphocytes % (Manual) Monocytes % (Manual) Basophils % (Manual) Nucleated RBC % Platelet Estimate Hypochromasia (manual) Poikilocytosis (manual Anisocytosis (manual) Target Cells Tear Drop Cells Jose Cells pO2 VBG pH VBG pCO2 VBG HCO3 VBG Total CO2 VBG O2 Sat (Calc) VBG Base Excess VBG Potassium Sodium Chloride Glucose Lactate Potassium Carbon Dioxide Anion Gap BUN Creatinine Est GFR ( Amer) Est GFR (Non-Af Amer) POC Glucose (mg/dL) 203 H 103 77 Random Glucose Calcium Total Bilirubin AST ALT Alkaline Phosphatase Total Creatine Kinase CK-MB (Mass) Troponin I, Quant NT-Pro-B Natriuret Pep Total Protein Albumin Globulin Albumin/Globulin Ratio Venous Blood Potassium 03/11/17 03/11/17 03/11/17 08:27 08:32 08:32 WBC 6.2 RBC 3.05 L Hgb 10.3 L Hct 31.7 L MCV 103.9 H MCH 33.7 H MCHC 32.4 L RDW 21.4 H Plt Count 86 L MPV 8.8 Neut % (Auto) 86.6 H Lymph % (Auto) 3.1 L [place] % (Auto) 8.7 Eos % (Auto) 0.6 Baso % (Auto) 1.0 Neut # 5.4 Lymph # 0.2 L [place] # 0.5 Eos # 0.0 Baso # 0.1 Neutrophils % (Manual) 87 H Lymphocytes % (Manual) 3 L Monocytes % (Manual) 9 Basophils % (Manual) 1 Nucleated RBC % 3 H Platelet Estimate Decreased L Hypochromasia (manual) Slight Poikilocytosis (manual Slight Anisocytosis (manual) Slight Target Cells Slight Tear Drop Cells Slight Jose Cells Slight pO2 33 VBG pH 7.21 L VBG pCO2 57 VBG HCO3 19.1 VBG Total CO2 24.5 VBG O2 Sat (Calc) 66.7 H VBG Base Excess -5.8 L VBG Potassium 4.7 Sodium 129.0 L 129 L Chloride 95.0 L 90 L Glucose 76 Lactate 2.4 H Potassium 4.8 Carbon Dioxide 21 L Anion Gap 23 H BUN 66 H Creatinine 5.1 H Est GFR ( Amer) 10 Est GFR (Non-Af Amer) 8 POC Glucose (mg/dL) Random Glucose 73 Calcium 9.9 Total Bilirubin 1.8 H AST 29 ALT 59 H Alkaline Phosphatase 134 H Total Creatine Kinase 28 L CK-MB (Mass) 3.46 H Troponin I, Quant 0.2030 H* NT-Pro-B Natriuret Pep 38451 H Total Protein 5.9 L Albumin 3.4 L Globulin 2.5 Albumin/Globulin Ratio 1.4 Venous Blood Potassium 4.7 03/11/17 03/11/17 11:12 16:42 WBC RBC Hgb Hct MCV MCH MCHC RDW Plt Count MPV Neut % (Auto) Lymph % (Auto) [place] % (Auto) Eos % (Auto) Baso % (Auto) Neut # Lymph # [place] # Eos # Baso # Neutrophils % (Manual) Lymphocytes % (Manual) Monocytes % (Manual) Basophils % (Manual) Nucleated RBC % Platelet Estimate Hypochromasia (manual) Poikilocytosis (manual Anisocytosis (manual) Target Cells Tear Drop Cells Jose Cells pO2 VBG pH VBG pCO2 VBG HCO3 VBG Total CO2 VBG O2 Sat (Calc) VBG Base Excess VBG Potassium Sodium Chloride Glucose Lactate Potassium Carbon Dioxide Anion Gap BUN Creatinine Est GFR ( Amer) Est GFR (Non-Af Amer) POC Glucose (mg/dL) 115 H 109 Random Glucose Calcium Total Bilirubin AST ALT Alkaline Phosphatase Total Creatine Kinase CK-MB (Mass) Troponin I, Quant NT-Pro-B Natriuret Pep Total Protein Albumin Globulin Albumin/Globulin Ratio Venous Blood Potassium Assessment & Plan (1) Afib Status: Acute (2) CHF (congestive heart failure) Status: Acute (3) Uncontrolled diabetes mellitus Status: Acute (4) ESRD (end stage renal disease) on dialysis Status: Chronic (5) Acute [id number] elevation myocardial infarction Status: Acute (6) Acute pulmonary edema with congestive heart failure Status: Acute (7) Atrial flutter with rapid ventricular response Status: Acute (8) CAD (coronary artery disease) of artery bypass graft Status: Acute (9) Ischemic cardiomyopathy Status: Acute (10) Opacity of lung on imaging study Status: Acute (11) Pneumonia Status: Acute (12) CAD (coronary artery disease) Status: Chronic (13) CHF (congestive heart failure) Status: Chronic (14) Diabetes Status: Chronic (15) Diabetic neuropathy Status: Chronic (16) HLD (hyperlipidemia) Status: Chronic (17) HTN (hypertension) Status: Chronic (18) PVD (peripheral vascular disease) Status: Chronic - Assessment and Plan (Free Text) Assessment: stat dose vanco given switch to cefepime cont zmax dnr/dni noted
[2017-03-11] MEDS ORDERED: Vancomycin 1 gm/NS 200 ml 1 GM/200 ML BAG IVPB ONE (18:00)
[2017-03-11] MEDS: (Lantus) Insulin Glargine, Recombinant SC SCH (22:01)
[2017-03-12 06:40] LABS: HEMATOCRIT 30.2 % (34.0-47.0); MEAN CELL VOLUME 102.9 fL (81.0-99.0); MEAN CORPUSCULAR HEMOGLOBIN 33.4 pg (27.0-31.0); MEAN CORPUSCULAR HGB CONC 32.5 g/dL (33.0-37.0); MEAN PLATELET VOLUME 9.1 fL (7.2-11.7); PLATELET COUNT 69 K/uL (130-400); WHITE BLOOD COUNT 3.8 K/uL (4.8-10.8)
[2017-03-12 07:00] LABS: ALB/GLOB RATIO 1.4 (1.0-2.1); BILIRUBIN,TOTAL 1.3 mg/dL (0.2-1.3); CALCIUM 9.5 mg/dl (8.6-10.4); TOTAL PROTEIN 5.5 g/dL (6.3-8.3)
[2017-03-12] MEDS: Azithromycin 500 MG in Sodium Chloride 0.9% 250 ML IVPB SCH (09:00)
[2017-03-12] MEDS: Pantoprazole 40 mg EC Tab PO SCH (09:01)
[2017-03-12] MEDS: Cilostazol 100 mg Tab UD PO SCH ×2 (09:03→18:24)
--- NOTE | 2017-03-12 09:03 | CP.PCM.CON ---
History of Present Illness - History of Present Illness History of Present Illness: Palliative consult Requested by Zina Peterson MD Reason; Code status discussion Patient is a 76 yo female admitted from [facility] where she was found to be hypotensive, bradicardic and lethargic. Prior to that, patient was at [facility] for [facility]. Patient admitted to [facility] with elevated toponin level, thrombocytopenia, BNP [address]. patient found to be with poor cardiac function. gentle hydration and vapotherm initiated in ED. As per report, patient's son wanted intubation to be avoided as those were patient's wishes. Patient made DNR in ED and sent to the floor. The fallowing morning, around 8am, patient found again very lethargic, BP 74/38 , O2Sat 78% and in A Fib. The right femoral vein catheter inserted and IV bolus given. The BP brianda to 105/78. PMH: anemia, arthritis, a Fib, cardiac arrhytmias, HTN, CKD on HD Soc. Hx: , lived at home, had been on HD for >15 years, children very involved in care Fam. Hx: Patient's children deny known family;y hx Review of Systems - Review of Systems Systems not reviewed;Unavailable: Altered Mental Status Review of Systems: ROS unobtainable from the patient due to condition. ROS obtained from patient's son,As per son, patient complained to him about feeling very weak. Al systems reviewd and are negative except as marked. - Constitutional Constitutional: Lethargy, Malaise, Weakness - EENT Eyes: absent: As Per HPI, Blind Spots, Blurred Vision, Change in Vision, Decreased Night Vision, Diplopia, Discharge, Dry Eye, Exophthalmos, Floaters, Irritation, Itchy Eyes, Loss of Peripheral Vision, Pain, Photophobia, Requires Corrective Lenses, Sees Flashes, Spots in Vision, Tunnel Vision, Other Visual Disturbances, Loss of Vision, Other Ears: absent: As Per HPI, Decreased Hearing, Ear Discharge, Ear Pain, Tinnitus, Abnormal Hearing, Disequilibrium, Dizziness, Other Nose/Mouth/Throat: absent: As Per HPI, Epistaxis, Nasal Congestion, Nasal Discharge, Nasal Obstruction, Nasal Trauma, Nose Pain, Post Nasal Drip, Sinus Pain, Sinus Pressure, Bleeding Gums, Change in Voice, Dental Pain, Dry Mouth, Dysphagia, Halitosis, Hoarsness, Lip Swelling, Mouth Lesions, Mouth Pain, Odynophagia, Sore Throat, Throat Swelling, Tongue Swelling, Facial Pain, Neck Pain, Neck Mass, Other - Breasts Breasts: absent: As Per HPI, Change in Shape, Mass, Pain, Nipple Discharge, Nipple Inversion, Skin Changes, Swelling, Other - Cardiovascular Cardiovascular: Slow Heart Rate - Respiratory Respiratory: Dyspnea - Gastrointestinal Gastrointestinal: absent: As Per HPI, Abdominal Pain, Belching, Bloating, Change in Bowel Habits, Change in Stool Character, Coffee Ground Emesis, Constipation, Cramping, Diarrhea, Dyspepsia, Dysphagia, Early Satiety, Excessive Flatus, Fecal Incontinence, Heartburn, Hematemesis, Hematochezia, Loose Stools, Melena, Nausea, Odynophagia, Temesmus, Vomiting, Other - Genitourinary Genitourinary: Dysuria - Reproductive: Female Reproductive:Female: Post Menopausal - Menstruation Menstruation: Post Menopausal - Musculoskeletal Musculoskeletal: Muscle Weakness - Integumentary Integumentary: Dry Skin - Neurological Neurological: Focal Weakness - Endocrine Endocrine: Fatigue - Hematologic/Lymphatic Hematologic: Easy Bleeding Past Patient History - Infectious Disease Hx of Infectious Diseases: None - Past Medical History & Family History Past Medical History?: Yes - Past Social History Smoking Status: Never Smoked - CARDIAC Hx Atrial Fibrillation: Yes Hx Cardia Arrhythmia: Yes Hx Hypercholesterolemia: Yes Hx Hypertension: Yes - PULMONARY Hx Respiratory Disorders: Yes Hx Pulmonary Edema: Yes - NEUROLOGICAL Hx Neurological Disorder: Yes Hx Dizziness: Yes - HEENT Hx HEENT Problems: Yes Hx Cataracts: Yes (Left and right cataract extraction in 2011) Hx Glaucoma: Yes - RENAL Hx Chronic Kidney Disease: Yes Date of Last Dialysis Treatment: 03/10/17 (Not performed due to hypotension) - ENDOCRINE/METABOLIC Hx Endocrine Disorders: Yes Hx Diabetes Mellitus Type 2: Yes - HEMATOLOGICAL/ONCOLOGICAL Hx Anemia: Yes - INTEGUMENTARY Hx Dermatological Problems: No - MUSCULOSKELETAL/RHEUMATOLOGICAL Hx Arthritis: Yes - GASTROINTESTINAL Hx Gastritis: Yes - GENITOURINARY/GYNECOLOGICAL Hx Genitourinary Disorders: No - PSYCHIATRIC Hx Substance Use: No - SURGICAL HISTORY Hx Coronary Artery Bypass Graft: Yes (CABG x 4 on 03/06/2009.) - ANESTHESIA Hx Anesthesia: Yes Hx Anesthesia Reactions: No Hx Malignant Hyperthermia: No Has any member of the family had a problem w/ anesthesia?: No Meds Allergies/Adverse Reactions: Allergies Allergy/AdvReac Type Severity Reaction Status Date / Time No Known Allergies Allergy Verified 03/10/17 15:33 - Medications Medications: Current Medications Amiodarone HCl (Cordarone) 200 mg PO DAILY [facility] Last Admin: 03/11/17 13:40 Dose: 200 mg Apixaban (Eliquis) 2.5 mg PO BID [facility] Last Admin: 03/11/17 18:24 Dose: Not Given Cilostazol (Pletal) 100 mg PO BID [facility] Last Admin: 03/11/17 18:25 Dose: Not Given Diltiazem HCl (Cardizem) 30 mg PO TID [facility] Famotidine (Pepcid) 20 mg PO DAILY [facility] Last Admin: 03/11/17 13:40 Dose: 20 mg Azithromycin 500 mg/ Sodium (Chloride) 250 mls @ 250 mls/hr IVPB DAILY [facility] Last Admin: 03/11/17 09:28 Dose: 250 mls/hr Cefepime HCl 1 gm/ Dextrose 50 mls @ 100 mls/hr IVPB Q24H [facility] Last Admin: 03/11/17 21:53 Dose: 100 mls/hr Insulin Glargine (Lantus) 50 unit SC HS [facility] Last Admin: 03/11/17 22:01 Dose: Not Given Midodrine (Proamatine) 5 mg PO TID [facility] Last Admin: 03/11/17 18:25 Dose: Not Given Pantoprazole Sodium (Protonix Ec Tab) 40 mg PO DAILY [facility] Last Admin: 03/11/17 14:46 Dose: 40 mg Sevelamer Carbonate (Renvela) 800 mg PO TID [facility] Last Admin: 03/11/17 18:25 Dose: Not Given Physical Exam - Constitutional Appears: Chronically Ill - Head Exam Head Exam: ATRAUMATIC, NORMAL INSPECTION, NORMOCEPHALIC - Eye Exam Eye Exam: EOMI, Normal appearance, PERRL Pupil Exam: NORMAL ACCOMODATION, PERRL - ENT Exam ENT Exam: Mucous Membranes Moist, Normal Exam - Neck Exam Neck exam: Positive for: Normal Inspection - Respiratory Exam Respiratory Exam: Decreased Breath Sounds, NORMAL BREATHING PATTERN - Cardiovascular Exam Cardiovascular Exam: Bradycardia, Irregular Rhythm - GI/Abdominal Exam GI & Abdominal Exam: Normal Bowel Sounds, Soft - Rectal Exam Rectal Exam: Deferred - Extremities Exam Extremities exam: Positive for: normal inspection - Back Exam Back exam: NORMAL INSPECTION - Neurological Exam Neurological exam: Alert, Altered - Psychiatric Exam Psychiatric exam: Flat Affect - Skin Skin Exam: Normal Color, Warm Results - Vital Signs Recent Vital Signs: Last Vital Signs Temp 97.5 F L 03/12/17 08:44 Pulse 85 03/12/17 08:44 Resp 19 03/12/17 08:44 BP 89/45 L 03/12/17 08:44 Pulse Ox 98 03/12/17 08:44 - Labs Result Diagrams: 03/12/17 06:18 03/12/17 06:18 Labs: Laboratory Results - last 24 hr 03/11/17 03/11/17 03/12/17 20:44 21:22 06:06 WBC RBC Hgb Hct MCV MCH MCHC RDW Plt Count MPV Sodium Potassium Chloride Carbon Dioxide Anion Gap BUN Creatinine Est GFR ( Amer) Est GFR (Non-Af Amer) POC Glucose (mg/dL) 73 77 87 Random Glucose Calcium Total Bilirubin AST ALT Alkaline Phosphatase Total Protein Albumin Globulin Albumin/Globulin Ratio 03/12/17 03/12/17 06:18 06:18 WBC 3.8 L RBC 2.94 L Hgb 9.8 L Hct 30.2 L MCV 102.9 H MCH 33.4 H MCHC 32.5 L RDW 21.0 H Plt Count 69 L MPV 9.1 Sodium 131 L Potassium 4.0 Chloride 90 L Carbon Dioxide 29 Anion Gap 16 BUN 43 H Creatinine 3.5 H Est GFR ( Amer) 15 Est GFR (Non-Af Amer) 13 POC Glucose (mg/dL) Random Glucose 77 Calcium 9.5 Total Bilirubin 1.3 AST 33 ALT 56 H Alkaline Phosphatase 117 Total Protein 5.5 L Albumin 3.2 L Globulin 2.3 Albumin/Globulin Ratio 1.4 Assessment & Plan - Assessment and Plan (Free Text) Assessment: Palliative consult Code status DNR prior to consult, no Advance directive/POLST on chart, PPS10 I reviewed medical records, all diagnostic studies, examined patient in the bed and discussed goals of care and Code status with family at bed side. Patient is alert, makes eye contacts, attempts to comply and answer questions, looks very weak. Skin is dry. The left arm AV fistula is with brui and thrils. The right arm swollen. patient is S/P [employer] response in no acute distress looking chronically ill. Patient is known to me from previous admissions. She has declined since the last admission. I met with her on previous admission and we discussed goals of care. At that time, who advocated for her requested Full Code and all aggressive measures to be applied to support life. Patient's conditions changed so did the goals of care. All systems reviewed and are negative except mentioned above. Family meeting held at bed side attended by son Kiran, the oldest child and daughter Vani. I reviewed patients clinical presentation with them and elicited their expectations regarding patient's care. Kiran stated that family has realized that patient's condition has declined and is under the impression that any further aggressive treatment would only bring more suffering for the patient without improving quality of life. Kiran also stated that his father and all children together discussed the goals for end of life care for the patient and agreed that all aggressive treatments are being withheld. That would include assistance form the MV and fci artificial feeding via PEG. They prefer patient continues HD as of before. We discussed POLST. Family choose DNR/DNI. POLST signed This was shared with Nicholas KOROMA and Gilma the nurse in charge. Family also stated concern about [facility] location. Patient resides at [facility] and goes to HD at [facility] Family believes that unnecessary transportation from [facility] to [facility] puts additional stress on already patient's fragile health. They prefer, [place] [facility] [facility] after the discharge. Impression * This is chronically ill patient being on HD for a very long time * Patient's condition is worsened by cardiac deficit * Family has come to the term that patient was approaching her end of life * Family does not want any aggressive treatment, except HD * Family choose DNR/DNI as those were patient's wishes Suggestion * POLST on chart * Agree with DNR/DNI * SS to please assist patient and family with possible placement to [facility] post discharge as per family's wishes. It only makes sence that patient receives HD at the same facility * Thank you for consulting palliative care
[2017-03-12 09:08] LABS: EOS # 0.8 K/uL (0.0-0.7); LYMPH # 0.8 K/uL (1.0-4.3); MONO # 0.2 K/uL (0.0-0.8)
--- NOTE | 2017-03-12 09:10 | CP.PCM.PN ---
<TYLER SCHNEIDER - Last Filed: 03/12/17 09:14> Subjective - Date & Time of Evaluation Date of Evaluation: 03/12/17 Time of Evaluation: 09:07 - Subjective Subjective: Tyler Schneider, PGY1, Progress Note for Cardiology (Dr. Seo): Pt seen and examined at bedside. No acute events overnight. Denies cp, n/v/d, confusion. Objective - Vital Signs/Intake and Output Vital Signs (last 24 hours): Temp Pulse Resp BP Pulse Ox 97.5 F L 85 19 89/45 L 98 03/12/17 08:44 03/12/17 08:44 03/12/17 08:44 03/12/17 08:44 03/12/17 08:44 - Medications Medications: Current Medications Amiodarone HCl (Cordarone) 200 mg PO DAILY [facility] Last Admin: 03/12/17 09:01 Dose: 200 mg Apixaban (Eliquis) 2.5 mg PO BID [facility] Last Admin: 03/12/17 09:02 Dose: 2.5 mg Cilostazol (Pletal) 100 mg PO BID [facility] Last Admin: 03/12/17 09:03 Dose: 100 mg Diltiazem HCl (Cardizem) 30 mg PO TID [facility] Famotidine (Pepcid) 20 mg PO DAILY [facility] Last Admin: 03/12/17 09:01 Dose: 20 mg Azithromycin 500 mg/ Sodium (Chloride) 250 mls @ 250 mls/hr IVPB DAILY [facility] Last Admin: 03/12/17 09:00 Dose: 250 mls/hr Cefepime HCl 1 gm/ Dextrose 50 mls @ 100 mls/hr IVPB Q24H [facility] Last Admin: 03/11/17 21:53 Dose: 100 mls/hr Insulin Glargine (Lantus) 50 unit SC HS [facility] Last Admin: 03/11/17 22:01 Dose: Not Given Midodrine (Proamatine) 5 mg PO TID [facility] Last Admin: 03/12/17 09:03 Dose: 5 mg Pantoprazole Sodium (Protonix Ec Tab) 40 mg PO DAILY [facility] Last Admin: 03/12/17 09:01 Dose: 40 mg Sevelamer Carbonate (Renvela) 800 mg PO TID [facility] Last Admin: 03/12/17 09:01 Dose: 800 mg - Labs Labs: 03/12/17 06:18 03/12/17 06:18 PT 15.6 SECONDS (9.7-12.2) H 03/10/17 16:18 INR 1.4 03/10/17 16:18 APTT 36 SECONDS (21-34) H 03/10/17 16:18 - Constitutional Appears: No Acute Distress - Head Exam Head Exam: ATRAUMATIC, NORMOCEPHALIC - Eye Exam Eye Exam: PERRL - ENT Exam ENT Exam: Mucous Membranes Moist - Respiratory Exam Respiratory Exam: Decreased Breath Sounds - Cardiovascular Exam Cardiovascular Exam: Irregular Rhythm - GI/Abdominal Exam GI & Abdominal Exam: Soft, Normal Bowel Sounds. absent: Tenderness - Extremities Exam Extremities Exam: absent: Calf Tenderness, Pedal Edema - Neurological Exam Neurological Exam: Alert, Awake - Skin Skin Exam: Dry, Warm Assessment and Plan - Assessment and Plan (Free Text) Assessment: 76F with PMH ESRD on HD, afib, CHF with EF 55%, admitted for AMS and hypotension , found to have RLL pna. Cardio consulted for optimization of chf and afib. Plan: Diastolic CHF and afib: - Echo 02/05 shows EF 55%. Normal LV systolic function with paradoxical septal motion. L atrial volume index is markedly dilated, R atrium size is severely dilated, systolic function is severely reduced, R ventricle severely dilated. severe pulm HTN - EKG 03/10: HR 50, afib with slow ventricular response. - Trop 0.1540->0.2030, BNP 33,800 on 03/10 - HR 50-68, hypotensive 88/36 on admission, s/p 500 ml bolus in ED. - [employer] called 03/11 for hypotension, 74/38, s/p 2L blous, R femoral central venous line inserted, on 70% HFNC, refused bipap. - Currently rate controlled on Amiodarone 200mg PO daily, still hypotensive BP 95-100/41-56, will hold Cardizem 30mg PO TID, in view of hypotension. - C/w NOAC eliquis 2.5mg PO BID and Midodrine 5mg PO TID for ionotropic effect. - C/w antibiotics per primary team. Discussed with attending, Dr. Seo. Tyler Schneider, PGY1 <Dante Seo A - Last Filed: 03/12/17 09:38> Objective - Vital Signs/Intake and Output Vital Signs (last 24 hours): Temp Pulse Resp BP Pulse Ox 97.5 F L 85 19 89/45 L 98 03/12/17 08:44 03/12/17 08:44 03/12/17 08:44 03/12/17 08:44 03/12/17 08:44 - Medications Medications: Current Medications Amiodarone HCl (Cordarone) 200 mg PO DAILY [facility] Last Admin: 03/12/17 09:01 Dose: 200 mg Apixaban (Eliquis) 2.5 mg PO BID [facility] Last Admin: 03/12/17 09:02 Dose: 2.5 mg Cilostazol (Pletal) 100 mg PO BID [facility] Last Admin: 03/12/17 09:03 Dose: 100 mg Diltiazem HCl (Cardizem) 30 mg PO TID [facility] Famotidine (Pepcid) 20 mg PO DAILY [facility] Last Admin: 03/12/17 09:01 Dose: 20 mg Azithromycin 500 mg/ Sodium (Chloride) 250 mls @ 250 mls/hr IVPB DAILY [facility] Last Admin: 03/12/17 09:00 Dose: 250 mls/hr Cefepime HCl 1 gm/ Dextrose 50 mls @ 100 mls/hr IVPB Q24H [facility] Last Admin: 03/11/17 21:53 Dose: 100 mls/hr Insulin Glargine (Lantus) 50 unit SC HS [facility] Last Admin: 03/11/17 22:01 Dose: Not Given Midodrine (Proamatine) 5 mg PO TID [facility] Last Admin: 03/12/17 09:03 Dose: 5 mg Pantoprazole Sodium (Protonix Ec Tab) 40 mg PO DAILY [facility] Last Admin: 03/12/17 09:01 Dose: 40 mg Sevelamer Carbonate (Renvela) 800 mg PO TID [facility] Last Admin: 03/12/17 09:01 Dose: 800 mg - Labs Labs: 03/12/17 06:18 03/12/17 06:18 PT 15.6 SECONDS (9.7-12.2) H 03/10/17 16:18 INR 1.4 03/10/17 16:18 APTT 36 SECONDS (21-34) H 08/01/17 16:18 Attending/Attestation - Attestation I have personally seen and examined this patient.: Yes I have fully participated in the care of the patient.: Yes I have reviewed all pertinent clinical information, including history, physical exam and plan: Yes Notes (Text): 03/12/17 09:38 Pt much improved this am. rate controlled stable anwering questions appr today
[2017-03-12 09:12] LABS: NEUTROPHIL 82 % (50-75); TOTAL CELLS COUNTED 100
--- NOTE | 2017-03-12 11:06 | CP.PCM.PN ---
Subjective - Date & Time of Evaluation Date of Evaluation: 03/12/17 Time of Evaluation: 11:04 - Subjective Subjective: seen and examined lethargic denies any cp /cough/headache/n/v/d/rash. on high flow o2 bp low 80-100 sbp hd yesterday neg 1.2L tolerated Objective - Vital Signs/Intake and Output Vital Signs (last 24 hours): Temp Pulse Resp BP Pulse Ox 97.5 F L 85 19 89/45 L 98 03/12/17 08:44 03/12/17 08:44 03/12/17 08:44 03/12/17 08:44 03/12/17 08:44 - Medications Medications: Current Medications Amiodarone HCl (Cordarone) 200 mg PO DAILY [facility] Last Admin: 03/12/17 09:01 Dose: 200 mg Apixaban (Eliquis) 2.5 mg PO BID [facility] Last Admin: 03/12/17 09:02 Dose: 2.5 mg Cilostazol (Pletal) 100 mg PO BID [facility] Last Admin: 03/12/17 09:03 Dose: 100 mg Diltiazem HCl (Cardizem) 30 mg PO TID [facility] Famotidine (Pepcid) 20 mg PO DAILY [facility] Last Admin: 03/12/17 09:01 Dose: 20 mg Azithromycin 500 mg/ Sodium (Chloride) 250 mls @ 250 mls/hr IVPB DAILY [facility] Last Admin: 03/12/17 09:00 Dose: 250 mls/hr Cefepime HCl 1 gm/ Dextrose 50 mls @ 100 mls/hr IVPB Q24H [facility] Last Admin: 03/11/17 21:53 Dose: 100 mls/hr Insulin Glargine (Lantus) 50 unit SC HS [facility] Last Admin: 03/11/17 22:01 Dose: Not Given Midodrine (Proamatine) 5 mg PO TID [facility] Last Admin: 03/12/17 09:03 Dose: 5 mg Pantoprazole Sodium (Protonix Ec Tab) 40 mg PO DAILY [facility] Last Admin: 03/12/17 09:01 Dose: 40 mg Sevelamer Carbonate (Renvela) 800 mg PO TID [facility] Last Admin: 03/12/17 09:01 Dose: 800 mg - Labs Labs: 03/12/17 06:18 03/12/17 06:18 PT 15.6 SECONDS (9.7-12.2) H 03/10/17 16:18 INR 1.4 03/10/17 16:18 APTT 36 SECONDS (21-34) H 03/10/17 16:18 - Constitutional Appears: No Acute Distress, Chronically Ill (lethargic) - Head Exam Head Exam: NORMAL INSPECTION - Eye Exam Eye Exam: Normal appearance - ENT Exam ENT Exam: Mucous Membranes Moist, Normal Exam - Neck Exam Neck Exam: Normal Inspection - Respiratory Exam Respiratory Exam: Decreased Breath Sounds, NORMAL BREATHING PATTERN - Cardiovascular Exam Cardiovascular Exam: Irregular Rhythm - GI/Abdominal Exam GI & Abdominal Exam: Distended, Soft, Normal Bowel Sounds - Extremities Exam Extremities Exam: Normal Inspection, Pedal Edema Assessment and Plan (1) Hypotension Status: Acute (2) Afib Status: Acute (3) CHF (congestive heart failure) Status: Acute (4) ESRD (end stage renal disease) on dialysis Status: Chronic (5) Atrial flutter with rapid ventricular response Status: Acute - Assessment and Plan (Free Text) Assessment: a fib rate controlled on amiodarone, however remains hypotensive despite midodrine. cardiology onboard. hx of cmp / severe diastolic dysfunction, pulm htn. plan for hd tomorrow if bp stable. orders written question of pna / rt lung consolidation on x ray, on antibiotics. blood cx negative
--- NOTE | 2017-03-12 12:07 | CP.PCM.PN ---
Subjective - Date & Time of Evaluation Date of Evaluation: 03/12/17 Time of Evaluation: 10:40 - Subjective Subjective: patient seen and examined. Remains on high flow oxygen Awake but does not follow commands Being treated for pneumonia Remains hypotensive Objective - Vital Signs/Intake and Output Vital Signs (last 24 hours): Temp Pulse Resp BP Pulse Ox 97.5 F L 85 19 89/45 L 98 03/12/17 08:44 03/12/17 08:44 03/12/17 08:44 03/12/17 08:44 03/12/17 08:44 - Medications Medications: Current Medications Amiodarone HCl (Cordarone) 200 mg PO DAILY [facility] Last Admin: 03/12/17 09:01 Dose: 200 mg Apixaban (Eliquis) 2.5 mg PO BID [facility] Last Admin: 03/12/17 09:02 Dose: 2.5 mg Cilostazol (Pletal) 100 mg PO BID [facility] Last Admin: 03/12/17 09:03 Dose: 100 mg Diltiazem HCl (Cardizem) 30 mg PO TID [facility] Famotidine (Pepcid) 20 mg PO DAILY [facility] Last Admin: 03/12/17 09:01 Dose: 20 mg Azithromycin 500 mg/ Sodium (Chloride) 250 mls @ 250 mls/hr IVPB DAILY [facility] Last Admin: 03/12/17 09:00 Dose: 250 mls/hr Cefepime HCl 1 gm/ Dextrose 50 mls @ 100 mls/hr IVPB Q24H [facility] Last Admin: 03/11/17 21:53 Dose: 100 mls/hr Insulin Glargine (Lantus) 50 unit SC [facility] Last Admin: 03/11/17 22:01 Dose: Not Given Midodrine (Proamatine) 5 mg PO TID [facility] Last Admin: 03/12/17 09:03 Dose: 5 mg Pantoprazole Sodium (Protonix Ec Tab) 40 mg PO DAILY [facility] Last Admin: 03/12/17 09:01 Dose: 40 mg Sevelamer Carbonate (Renvela) 800 mg PO TID [facility] Last Admin: 03/12/17 09:01 Dose: 800 mg - Labs Labs: 03/12/17 06:18 03/12/17 06:18 PT 15.6 SECONDS (9.7-12.2) H 03/10/17 16:18 INR 1.4 08/01/17 16:18 APTT 36 SECONDS (21-34) H 03/10/17 16:18 - Head Exam Head Exam: ATRAUMATIC, NORMOCEPHALIC - ENT Exam ENT Exam: Mucous Membranes Moist - Neck Exam Neck Exam: Normal Inspection - Respiratory Exam Respiratory Exam: Decreased Breath Sounds - Cardiovascular Exam Cardiovascular Exam: REGULAR RHYTHM - GI/Abdominal Exam GI & Abdominal Exam: Soft, Normal Bowel Sounds Assessment and Plan (1) Pneumonia Assessment & Plan: continue antibiotics for pneumonia Followup chest x-ray Hypotension secondary to possible sepsis Continue hemodialysis as tolerated Status: Acute (2) ESRD (end stage renal disease) on dialysis Status: Chronic (3) Cardiomyopathy Status: Acute
[2017-03-12] MEDS ORDERED: Sodium Chloride 0.9% 250 ML IV ONE (13:36)
--- NOTE | 2017-03-12 15:37 | CP.PCM.PN ---
Subjective - Date & Time of Evaluation Date of Evaluation: 03/12/17 Time of Evaluation: 12:40 - Subjective Subjective: clinically same Objective - Vital Signs/Intake and Output Vital Signs (last 24 hours): Temp Pulse Resp BP Pulse Ox 97.5 F L 68 20 71/44 L 98 03/12/17 08:44 03/12/17 15:02 03/12/17 14:30 03/12/17 15:02 03/12/17 14:06 Intake and Output: 03/12/17 03/12/17 06:59 18:59 Intake Total 450 Balance 450 - Medications Medications: Current Medications Amiodarone HCl (Cordarone) 200 mg PO DAILY [facility] Last Admin: 03/12/17 09:01 Dose: 200 mg Apixaban (Eliquis) 2.5 mg PO BID [facility] Last Admin: 03/12/17 09:02 Dose: 2.5 mg Cilostazol (Pletal) 100 mg PO BID [facility] Last Admin: 03/12/17 09:03 Dose: 100 mg Diltiazem HCl (Cardizem) 30 mg PO TID [facility] Famotidine (Pepcid) 20 mg PO DAILY [facility] Last Admin: 03/12/17 09:01 Dose: 20 mg Azithromycin 500 mg/ Sodium (Chloride) 250 mls @ 250 mls/hr IVPB DAILY [facility] Last Admin: 03/12/17 09:00 Dose: 250 mls/hr Cefepime HCl 1 gm/ Dextrose 50 mls @ 100 mls/hr IVPB Q24H [facility] Last Admin: 03/11/17 21:53 Dose: 100 mls/hr Insulin Glargine (Lantus) 50 unit SC [facility] Last Admin: 03/11/17 22:01 Dose: Not Given Midodrine (Proamatine) 5 mg PO TID [facility] Last Admin: 03/12/17 13:35 Dose: 5 mg Pantoprazole Sodium (Protonix Ec Tab) 40 mg PO DAILY [facility] Last Admin: 03/12/17 09:01 Dose: 40 mg Sevelamer Carbonate (Renvela) 800 mg PO TID [facility] Last Admin: 03/12/17 13:35 Dose: 800 mg - Labs Labs: 03/12/17 06:18 03/12/17 06:18 PT 15.6 SECONDS (9.7-12.2) H 03/10/17 16:18 INR 1.4 03/10/17 16:18 APTT 36 SECONDS (21-34) H 03/10/17 16:18 - Constitutional Appears: Well - Head Exam Head Exam: ATRAUMATIC, NORMAL INSPECTION, NORMOCEPHALIC - Eye Exam Eye Exam: EOMI, Normal appearance, PERRL Pupil Exam: NORMAL ACCOMODATION, PERRL - ENT Exam ENT Exam: Mucous Membranes Moist, Normal Exam - Neck Exam Neck Exam: Full ROM, Normal Inspection. absent: Lymphadenopathy - Respiratory Exam Respiratory Exam: Decreased Breath Sounds - Cardiovascular Exam Cardiovascular Exam: REGULAR RHYTHM, +S1, +S2 - GI/Abdominal Exam GI & Abdominal Exam: Soft, Diminished Bowel Sounds - Rectal Exam Rectal Exam: Deferred Assessment and Plan (1) Afib Status: Acute (2) CHF (congestive heart failure) Status: Acute (3) Uncontrolled diabetes mellitus Status: Acute (4) ESRD (end stage renal disease) on dialysis Status: Chronic (5) Acute [id number] elevation myocardial infarction Status: Acute (6) Acute pulmonary edema with congestive heart failure Status: Acute (7) Atrial flutter with rapid ventricular response Status: Acute (8) CAD (coronary artery disease) of artery bypass graft Status: Acute (9) Cardiomyopathy Status: Acute (10) Congestive heart failure Status: Acute (11) Diabetic nephropathy associated with type 2 diabetes mellitus Status: Acute (12) Diarrhea Status: Acute (13) Elevated d-dimer Status: Acute (14) Elevated liver enzymes Status: Acute (15) Heart failure Status: Acute (16) Ischemic cardiomyopathy Status: Acute (17) New onset atrial flutter Status: Acute (18) Opacity of lung on imaging study Status: Acute (19) Oxygen desaturation Status: Acute (20) Pneumonia Status: Acute (21) Prophylactic measure Status: Acute (22) CAD (coronary artery disease) Status: Chronic (23) CHF (congestive heart failure) Status: Chronic (24) Diabetes Status: Chronic (25) Diabetic neuropathy Status: Chronic (26) HLD (hyperlipidemia) Status: Chronic (27) HTN (hypertension) Status: Chronic (28) PVD (peripheral vascular disease) Status: Chronic - Assessment and Plan (Free Text) Plan: Patient still lethargic Remains hypotensive Hemodialysis yesterday Continue antibiotics Cardizem Eliquis Cordarone Cardio on board Accu-Cheks Protonix
--- NOTE | 2017-03-12 18:38 | CP.PCM.PN ---
Subjective - Date & Time of Evaluation Date of Evaluation: 03/12/17 Time of Evaluation: 10:00 - Subjective Subjective: more alert less sob nad Objective - Vital Signs/Intake and Output Vital Signs (last 24 hours): Temp Pulse Resp BP Pulse Ox 98.1 F 72 20 86/44 L 96 03/12/17 15:35 03/12/17 15:35 03/12/17 15:35 03/12/17 15:35 03/12/17 15:35 Intake and Output: 03/12/17 03/12/17 06:59 18:59 Intake Total 450 Balance 450 - Medications Medications: Current Medications Amiodarone HCl (Cordarone) 200 mg PO DAILY [facility] Last Admin: 03/12/17 09:01 Dose: 200 mg Apixaban (Eliquis) 2.5 mg PO BID [facility] Last Admin: 03/12/17 18:24 Dose: 2.5 mg Cilostazol (Pletal) 100 mg PO BID [facility] Last Admin: 03/12/17 18:24 Dose: 100 mg Diltiazem HCl (Cardizem) 30 mg PO TID [facility] Famotidine (Pepcid) 20 mg PO DAILY [facility] Last Admin: 03/12/17 09:01 Dose: 20 mg Azithromycin 500 mg/ Sodium (Chloride) 250 mls @ 250 mls/hr IVPB DAILY [facility] Last Admin: 03/12/17 09:00 Dose: 250 mls/hr Cefepime HCl 1 gm/ Dextrose 50 mls @ 100 mls/hr IVPB Q24H [facility] Last Admin: 03/12/17 18:24 Dose: 100 mls/hr Insulin Glargine (Lantus) 50 unit SC [facility] Last Admin: 03/11/17 22:01 Dose: Not Given Midodrine (Proamatine) 5 mg PO TID [facility] Last Admin: 03/12/17 18:24 Dose: 5 mg Pantoprazole Sodium (Protonix Ec Tab) 40 mg PO DAILY [facility] Last Admin: 03/12/17 09:01 Dose: 40 mg Sevelamer Carbonate (Renvela) 800 mg PO TID [facility] Last Admin: 03/12/17 18:24 Dose: 800 mg - Labs Labs: 03/12/17 06:18 03/12/17 06:18 PT 15.6 SECONDS (9.7-12.2) H 03/10/17 16:18 INR 1.4 03/10/17 16:18 APTT 36 SECONDS (21-34) H 03/10/17 16:18 - Constitutional Appears: Non-toxic, Cachectic, Chronically Ill - Head Exam Head Exam: NORMOCEPHALIC - Eye Exam Eye Exam: PERRL. absent: Scleral icterus - ENT Exam ENT Exam: Mucous Membranes Dry - Neck Exam Neck Exam: absent: Lymphadenopathy - Respiratory Exam Respiratory Exam: Decreased Breath Sounds, Clear to Ausculation Bilateral - Cardiovascular Exam Cardiovascular Exam: REGULAR RHYTHM - GI/Abdominal Exam GI & Abdominal Exam: Distended, Soft - Rectal Exam Rectal Exam: Deferred - Exam Exam: NORMAL INSPECTION - Extremities Exam Extremities Exam: absent: Pedal Edema - Back Exam Back Exam: absent: CVA tenderness (L), CVA tenderness (R) - Neurological Exam Neurological Exam: Alert, Awake Assessment and Plan (1) Afib Status: Acute (2) CHF (congestive heart failure) Status: Acute (3) Uncontrolled diabetes mellitus Status: Acute (4) ESRD (end stage renal disease) on dialysis Status: Chronic (5) Acute [id number] elevation myocardial infarction Status: Acute (6) Acute pulmonary edema with congestive heart failure Status: Acute (7) Atrial flutter with rapid ventricular response Status: Acute (8) CAD (coronary artery disease) of artery bypass graft Status: Acute (9) Ischemic cardiomyopathy Status: Acute (10) Opacity of lung on imaging study Status: Acute (11) Pneumonia Status: Acute (12) CAD (coronary artery disease) Status: Chronic (13) CHF (congestive heart failure) Status: Chronic (14) Diabetes Status: Chronic (15) Diabetic neuropathy Status: Chronic (16) HLD (hyperlipidemia) Status: Chronic (17) HTN (hypertension) Status: Chronic (18) PVD (peripheral vascular disease) Status: Chronic
[2017-03-12] MEDS: (Lantus) Insulin Glargine, Recombinant SC SCH (22:21)
[2017-03-13] MEDS: Cilostazol 100 mg Tab UD PO SCH ×2 (10:00→18:37)
[2017-03-13] MEDS: Pantoprazole 40 mg EC Tab PO SCH (10:00)
--- NOTE | 2017-03-13 12:12 | CP.PCM.PN ---
Objective - Vital Signs/Intake and Output Vital Signs (last 24 hours): Temp Pulse Resp BP Pulse Ox 98 F 64 18 77/53 L 98 03/13/17 10:15 03/13/17 11:20 03/13/17 11:20 03/13/17 11:20 03/13/17 11:20 Intake and Output: 03/13/17 03/13/17 06:59 18:59 Intake Total 100 Balance 100 - Medications Medications: Current Medications Amiodarone HCl (Cordarone) 200 mg PO DAILY [facility] Last Admin: 03/12/17 09:01 Dose: 200 mg Apixaban (Eliquis) 2.5 mg PO BID [facility] Last Admin: 03/12/17 18:24 Dose: 2.5 mg Cilostazol (Pletal) 100 mg PO BID [facility] Last Admin: 03/12/17 18:24 Dose: 100 mg Diltiazem HCl (Cardizem) 30 mg PO TID [facility] Famotidine (Pepcid) 20 mg PO DAILY [facility] Last Admin: 03/12/17 09:01 Dose: 20 mg Azithromycin 500 mg/ Sodium (Chloride) 250 mls @ 250 mls/hr IVPB DAILY [facility] Last Admin: 03/12/17 09:00 Dose: 250 mls/hr Cefepime HCl 1 gm/ Dextrose 50 mls @ 100 mls/hr IVPB Q24H [facility] Last Admin: 03/12/17 18:24 Dose: 100 mls/hr Insulin Glargine (Lantus) 15 unit SC [facility] Midodrine (Proamatine) 5 mg PO TID [facility] Last Admin: 03/13/17 09:40 Dose: 5 mg Pantoprazole Sodium (Protonix Ec Tab) 40 mg PO DAILY [facility] Last Admin: 03/12/17 09:01 Dose: 40 mg Sevelamer Carbonate (Renvela) 800 mg PO TID [facility] Last Admin: 03/12/17 18:24 Dose: 800 mg - Labs Labs: 03/12/17 06:18 03/12/17 06:18 PT 15.6 SECONDS (9.7-12.2) H 03/10/17 16:18 INR 1.4 03/10/17 16:18 APTT 36 SECONDS (21-34) H 03/10/17 16:18 Assessment and Plan (1) Pneumonia Status: Acute (2) ESRD (end stage renal disease) on dialysis Status: Chronic (3) Cardiomyopathy Status: Acute
[2017-03-13] MEDS: Azithromycin 500 MG in Sodium Chloride 0.9% 250 ML IVPB SCH (14:42)
--- NOTE | 2017-03-13 14:58 | CP.PCM.PN ---
Subjective - Date & Time of Evaluation Date of Evaluation: 03/13/17 Time of Evaluation: 07:45 - Subjective Subjective: PGY-2 Resident Progress Note for Dr. Peterson Patient seen and examined at bedside. No acute events overnight. Patient is resting in bed comfortably. She is awake but lethargic. Unable to obtain detailed ROS due to patient's mentation. Objective - Vital Signs/Intake and Output Vital Signs (last 24 hours): Temp Pulse Resp BP Pulse Ox 98 F 74 20 92/52 L 99 03/13/17 10:15 03/13/17 13:40 03/13/17 13:40 03/13/17 13:40 03/13/17 13:40 Intake and Output: 03/13/17 03/13/17 06:59 18:59 Intake Total 100 240 Balance 100 240 - Medications Medications: Current Medications Amiodarone HCl (Cordarone) 200 mg PO DAILY [facility] Last Admin: 03/13/17 14:53 Dose: 200 mg Apixaban (Eliquis) 2.5 mg PO BID [facility] Last Admin: 03/13/17 10:00 Dose: Not Given Cilostazol (Pletal) 100 mg PO BID [facility] Last Admin: 03/13/17 10:00 Dose: Not Given Diltiazem HCl (Cardizem) 30 mg PO TID [facility] Famotidine (Pepcid) 20 mg PO DAILY [facility] Last Admin: 03/13/17 10:00 Dose: Not Given Azithromycin 500 mg/ Sodium (Chloride) 250 mls @ 250 mls/hr IVPB DAILY [facility] Last Admin: 03/13/17 14:42 Dose: 250 mls/hr Cefepime HCl 1 gm/ Dextrose 50 mls @ 100 mls/hr IVPB Q24H [facility] Last Admin: 03/12/17 18:24 Dose: 100 mls/hr Insulin Glargine (Lantus) 15 unit SC [facility] Midodrine (Proamatine) 5 mg PO TID [facility] Last Admin: 03/13/17 14:51 Dose: 5 mg Pantoprazole Sodium (Protonix Ec Tab) 40 mg PO DAILY [facility] Last Admin: 03/13/17 10:00 Dose: Not Given Sevelamer Carbonate (Renvela) 800 mg PO TID [facility] Last Admin: 03/13/17 14:00 Dose: Not Given - Labs Labs: 03/12/17 06:18 03/12/17 06:18 PT 15.6 SECONDS (9.7-12.2) H 03/10/17 16:18 INR 1.4 03/10/17 16:18 APTT 36 SECONDS (21-34) H 03/10/17 16:18 - Constitutional Appears: No Acute Distress, Chronically Ill - Head Exam Head Exam: ATRAUMATIC, NORMAL INSPECTION - Eye Exam Eye Exam: Normal appearance - ENT Exam ENT Exam: Mucous Membranes Moist - Neck Exam Neck Exam: Normal Inspection - Respiratory Exam Respiratory Exam: Decreased Breath Sounds. absent: Respiratory Distress - Cardiovascular Exam Cardiovascular Exam: +S1, +S2. absent: Murmur - GI/Abdominal Exam GI & Abdominal Exam: Soft, Normal Bowel Sounds. absent: Tenderness - Neurological Exam Neurological Exam: Alert, Awake - Psychiatric Exam Psychiatric exam: Normal Affect, Normal Mood - Skin Skin Exam: Dry, Warm Assessment and Plan - Assessment and Plan (Free Text) Assessment: Hypotension, improving -Continue to hold Cardizem -Continue Midodrine -BP improving ESRD -Follow nephrology consults -HD this today -Continue sevelamer carbonate -Renal diet Pneumonia -Follow ID and Pulmonary recommendations -CXR in ED showed Suspect right lower lobe pneumonia and small right pleural effusion -Continue with azithromycin and cefepime -Follow up blood and sputum cultures CHF -Follow cardiology recommendations -Previous echo EF 55% in January 2017 -BNP today [id number] Afib -Follow cardiology recommendations -Continue Amiodarone, Eliquis, DM -Lantus 15 units SC HS -accucheck ACHS PVD -Continue cilostazol PPx -Pepcid -Eliquis -Patient is DNR/DNI Will discuss with attending physician Dr. Peterson
--- NOTE | 2017-03-13 16:40 | CP.PCM.PN ---
Subjective - Date & Time of Evaluation Date of Evaluation: 03/13/17 Time of Evaluation: 12:40 - Subjective Subjective: Clinically same Objective - Vital Signs/Intake and Output Vital Signs (last 24 hours): Temp Pulse Resp BP Pulse Ox 97.3 F L 66 20 106/69 100 03/13/17 15:19 03/13/17 15:19 03/13/17 15:19 03/13/17 15:19 03/13/17 15:19 Intake and Output: 03/13/17 03/13/17 06:59 18:59 Intake Total 100 240 Balance 100 240 - Medications Medications: Current Medications Amiodarone HCl (Cordarone) 200 mg PO DAILY [facility] Last Admin: 03/13/17 14:53 Dose: 200 mg Apixaban (Eliquis) 2.5 mg PO BID [facility] Last Admin: 03/13/17 10:00 Dose: Not Given Cilostazol (Pletal) 100 mg PO BID [facility] Last Admin: 03/13/17 10:00 Dose: Not Given Diltiazem HCl (Cardizem) 30 mg PO TID [facility] Famotidine (Pepcid) 20 mg PO DAILY [facility] Last Admin: 03/13/17 10:00 Dose: Not Given Azithromycin 500 mg/ Sodium (Chloride) 250 mls @ 250 mls/hr IVPB DAILY [facility] Last Admin: 03/13/17 14:42 Dose: 250 mls/hr Cefepime HCl 1 gm/ Dextrose 50 mls @ 100 mls/hr IVPB Q24H [facility] Last Admin: 03/12/17 18:24 Dose: 100 mls/hr Insulin Glargine (Lantus) 15 unit SC [facility] Midodrine (Proamatine) 5 mg PO TID [facility] Last Admin: 03/13/17 14:51 Dose: 5 mg Pantoprazole Sodium (Protonix Ec Tab) 40 mg PO DAILY [facility] Last Admin: 03/13/17 10:00 Dose: Not Given Sevelamer Carbonate (Renvela) 800 mg PO TID [facility] Last Admin: 03/13/17 14:00 Dose: Not Given - Labs Labs: 03/12/17 06:18 03/12/17 06:18 PT 15.6 SECONDS (9.7-12.2) H 03/10/17 16:18 INR 1.4 03/10/17 16:18 APTT 36 SECONDS (21-34) H 03/10/17 16:18 - Constitutional Appears: Well - Head Exam Head Exam: ATRAUMATIC, NORMAL INSPECTION, NORMOCEPHALIC - Eye Exam Eye Exam: EOMI, Normal appearance, PERRL Pupil Exam: NORMAL ACCOMODATION, PERRL - ENT Exam ENT Exam: Mucous Membranes Moist, Normal Exam - Neck Exam Neck Exam: Full ROM, Normal Inspection. absent: Lymphadenopathy - Respiratory Exam Respiratory Exam: Decreased Breath Sounds - Cardiovascular Exam Cardiovascular Exam: REGULAR RHYTHM, +S1, +S2 - GI/Abdominal Exam GI & Abdominal Exam: Soft, Diminished Bowel Sounds - Rectal Exam Rectal Exam: Deferred Assessment and Plan (1) Afib Status: Acute (2) CHF (congestive heart failure) Status: Acute (3) Uncontrolled diabetes mellitus Status: Acute (4) ESRD (end stage renal disease) on dialysis Status: Chronic (5) Acute ryi-[id number]-dffcztt elevation myocardial infarction Status: Acute (6) Acute pulmonary edema with congestive heart failure Status: Acute (7) Atrial flutter with rapid ventricular response Status: Acute (8) CAD (coronary artery disease) of artery bypass graft Status: Acute (9) Cardiomyopathy Status: Acute (10) Congestive heart failure Status: Acute (11) Diabetic nephropathy associated with type 2 diabetes mellitus Status: Acute (12) Diarrhea Status: Acute (13) Elevated d-dimer Status: Acute (14) Elevated liver enzymes Status: Acute (15) Heart failure Status: Acute (16) Ischemic cardiomyopathy Status: Acute (17) New onset atrial flutter Status: Acute (18) Opacity of lung on imaging study Status: Acute (19) Oxygen desaturation Status: Acute (20) Pneumonia Status: Acute (21) Prophylactic measure Status: Acute (22) CAD (coronary artery disease) Status: Chronic (23) CHF (congestive heart failure) Status: Chronic (24) Diabetes Status: Chronic (25) Diabetic neuropathy Status: Chronic (26) HLD (hyperlipidemia) Status: Chronic (27) HTN (hypertension) Status: Chronic (28) PVD (peripheral vascular disease) Status: Chronic - Assessment and Plan (Free Text) Plan: Case seen and discussed with staff Patient awake Lethargic No acute event overnight Continue antibiotics Cardizem Eliquis Cordarone Cardio on board Accu-Cheks Lantus Protonix DNR/DNI
--- NOTE | 2017-03-13 17:04 | CP.PCM.PN ---
Subjective - Date & Time of Evaluation Date of Evaluation: 03/13/17 Time of Evaluation: 16:00 - Subjective Subjective: poorly responsive daugher at bedside had HD, 1 kg uf unable to obtain ROS Objective - Vital Signs/Intake and Output Vital Signs (last 24 hours): Temp Pulse Resp BP Pulse Ox 97.3 F L 66 20 106/69 100 03/13/17 15:19 03/13/17 15:19 03/13/17 15:19 03/13/17 15:19 03/13/17 15:19 Intake and Output: 03/13/17 03/13/17 06:59 18:59 Intake Total 100 240 Balance 100 240 - Medications Medications: Current Medications Amiodarone HCl (Cordarone) 200 mg PO DAILY [facility] Last Admin: 03/13/17 14:53 Dose: 200 mg Apixaban (Eliquis) 2.5 mg PO BID [facility] Last Admin: 03/13/17 10:00 Dose: Not Given Cilostazol (Pletal) 100 mg PO BID [facility] Last Admin: 03/13/17 10:00 Dose: Not Given Diltiazem HCl (Cardizem) 30 mg PO TID [facility] Famotidine (Pepcid) 20 mg PO DAILY [facility] Last Admin: 03/13/17 10:00 Dose: Not Given Azithromycin 500 mg/ Sodium (Chloride) 250 mls @ 250 mls/hr IVPB DAILY [facility] Last Admin: 03/13/17 14:42 Dose: 250 mls/hr Cefepime HCl 1 gm/ Dextrose 50 mls @ 100 mls/hr IVPB Q24H [facility] Last Admin: 03/12/17 18:24 Dose: 100 mls/hr Insulin Glargine (Lantus) 15 unit SC [facility] Midodrine (Proamatine) 5 mg PO TID [facility] Last Admin: 03/13/17 14:51 Dose: 5 mg Pantoprazole Sodium (Protonix Ec Tab) 40 mg PO DAILY [facility] Last Admin: 03/13/17 10:00 Dose: Not Given Sevelamer Carbonate (Renvela) 800 mg PO TID [facility] Last Admin: 03/13/17 14:00 Dose: Not Given - Labs Labs: 03/12/17 06:18 03/12/17 06:18 PT 15.6 SECONDS (9.7-12.2) H 03/10/17 16:18 INR 1.4 03/10/17 16:18 APTT 36 SECONDS (21-34) H 03/10/17 16:18 - Constitutional Appears: Chronically Ill - Head Exam Head Exam: ATRAUMATIC Additional comments: facial swelling - ENT Exam ENT Exam: Mucous Membranes Moist - Neck Exam Neck Exam: Full ROM. absent: Lymphadenopathy - Respiratory Exam Respiratory Exam: Decreased Breath Sounds. absent: Accessory Muscle Use - Cardiovascular Exam Cardiovascular Exam: Irregular Rhythm. absent: Rubs - GI/Abdominal Exam GI & Abdominal Exam: Distended, Normal Bowel Sounds - Extremities Exam Extremities Exam: Pedal Edema - Neurological Exam Neurological Exam: Altered Assessment and Plan - Assessment and Plan (Free Text) Assessment: esrd hypotension due to cardiomyopathy, ? pneumonia facial swelling,? svc syndrome altered mental status, low cardiac output consider HD in am if hemodynamics permit poor prognosis
[2017-03-13] MEDS: (Lantus) Insulin Glargine, Recombinant SC SCH (22:18)
[2017-03-14 06:37] LABS: BASO % 0.9 % (0.0-2.0); EOS # 0.1 K/uL (0.0-0.7); EOS % 2.3 % (0.0-4.0); HEMATOCRIT 28.4 % (34.0-47.0); LYMPH # 0.2 K/uL (1.0-4.3); MEAN CELL VOLUME 104.7 fL (81.0-99.0); MEAN CORPUSCULAR HEMOGLOBIN 33.8 pg (27.0-31.0); MEAN CORPUSCULAR HGB CONC 32.3 g/dL (33.0-37.0); MEAN PLATELET VOLUME 8.3 fL (7.2-11.7); MONO # 0.4 K/uL (0.0-0.8); MONO % 10.1 % (0.0-10.0); NRBC % 0.9 % (0.0-2.0); PLATELET COUNT 70 K/uL (130-400); RED CELL DISTRIBUTION WIDTH 22.8 % (11.5-14.5); WHITE BLOOD COUNT 3.5 K/uL (4.8-10.8)
[2017-03-14 06:57] LABS: POTASSIUM 3.9 mmol/L (3.6-5.2)
[2017-03-14 07:00] LABS: ALB/GLOB RATIO 1.3 (1.0-2.1); BILIRUBIN,TOTAL 1.2 mg/dL (0.2-1.3); CALCIUM 9.5 mg/dl (8.6-10.4); TOTAL PROTEIN 5.3 g/dL (6.3-8.3)
[2017-03-14] MEDS: Azithromycin 500 MG in Sodium Chloride 0.9% 250 ML IVPB SCH (10:12)
[2017-03-14] MEDS: Cilostazol 100 mg Tab UD PO SCH ×2 (10:13→18:25)
[2017-03-14 10:16] LABS: EOSINOPHIL 1 % (0-4); NEUTROPHIL 79 % (50-75); TOTAL CELLS COUNTED 100
[2017-03-14] MEDS ORDERED: Sodium Chloride 0.9% 250 ML IV ONE (10:45)
--- NOTE | 2017-03-14 11:54 | CP.PCM.PN ---
Subjective - Date & Time of Evaluation Date of Evaluation: 03/14/17 Time of Evaluation: 11:51 - Subjective Subjective: Notes reviewed Remains in bed Lethargic, responds to name Minimal response to questions No distress, o2 via No family at bedside ROS unable to obtain due to altered mental status Objective - Vital Signs/Intake and Output Vital Signs (last 24 hours): Temp Pulse Resp BP Pulse Ox 97.5 F L 75 20 108/57 L 96 03/14/17 08:27 03/14/17 08:27 03/14/17 08:27 03/14/17 08:27 03/14/17 08:27 Intake and Output: 03/14/17 03/14/17 06:59 18:59 Intake Total 320 Output Total 1 Balance 319 - Medications Medications: Current Medications Amiodarone HCl (Cordarone) 200 mg PO DAILY [facility] Last Admin: 03/14/17 10:46 Dose: Not Given Apixaban (Eliquis) 2.5 mg PO BID [facility] Last Admin: 03/14/17 10:12 Dose: 2.5 mg Cilostazol (Pletal) 100 mg PO BID [facility] Last Admin: 03/14/17 10:13 Dose: 100 mg Diltiazem HCl (Cardizem) 30 mg PO TID [facility] Famotidine (Pepcid) 20 mg PO DAILY [facility] Last Admin: 03/14/17 10:12 Dose: 20 mg Azithromycin 500 mg/ Sodium (Chloride) 250 mls @ 250 mls/hr IVPB DAILY [facility] Last Admin: 03/14/17 10:12 Dose: 250 mls/hr Cefepime HCl 1 gm/ Dextrose 50 mls @ 100 mls/hr IVPB Q24H [facility] Last Admin: 03/13/17 18:35 Dose: 100 mls/hr Insulin Glargine (Lantus) 15 unit SC HS [facility] Last Admin: 03/13/17 22:18 Dose: Not Given Midodrine (Proamatine) 5 mg PO TID [facility] Last Admin: 03/14/17 10:11 Dose: 5 mg Sevelamer Carbonate (Renvela) 800 mg PO TID [facility] Last Admin: 03/14/17 10:08 Dose: 800 mg - Labs Labs: 03/14/17 06:30 03/14/17 06:30 PT 15.6 SECONDS (9.7-12.2) H 03/10/17 16:18 INR 1.4 03/10/17 16:18 APTT 36 SECONDS (21-34) H 03/10/17 16:18 - Constitutional Appears: Confused, Chronically Ill - Head Exam Head Exam: ATRAUMATIC, NORMAL INSPECTION - Eye Exam Eye Exam: EOMI, Normal appearance - ENT Exam ENT Exam: Mucous Membranes Moist, Normal Oropharynx - Neck Exam Neck Exam: absent: Lymphadenopathy, Thyromegaly - Respiratory Exam Respiratory Exam: Decreased Breath Sounds, Rhonchi, NORMAL BREATHING PATTERN - Cardiovascular Exam Cardiovascular Exam: +S1, +S2. absent: Rubs - GI/Abdominal Exam GI & Abdominal Exam: Soft, Normal Bowel Sounds - Extremities Exam Extremities Exam: Pedal Edema. absent: Joint Swelling - Neurological Exam Neurological Exam: Awake. absent: Oriented x3 Assessment and Plan - Assessment and Plan (Free Text) Assessment: esrd dm htn now hypotensive ischemic cmp pneumonia afib with rvr poor mental status, noted on previous hospitalization Maintain abx as ordered BP low, not likely to tolerate extra dialysis treatments Continue supportive care
--- NOTE | 2017-03-14 13:55 | CP.PCM.PN ---
Subjective - Date & Time of Evaluation Date of Evaluation: 03/14/17 Time of Evaluation: 10:20 - Subjective Subjective: clinically same Objective - Vital Signs/Intake and Output Vital Signs (last 24 hours): Temp Pulse Resp BP Pulse Ox 97.5 F L 99 H 20 89/41 L 96 03/14/17 08:27 03/14/17 13:26 03/14/17 08:27 03/14/17 13:26 03/14/17 08:27 Intake and Output: 03/14/17 03/14/17 06:59 18:59 Intake Total 320 Output Total 1 Balance 319 - Medications Medications: Current Medications Amiodarone HCl (Cordarone) 200 mg PO DAILY [facility] Last Admin: 03/14/17 10:46 Dose: Not Given Apixaban (Eliquis) 2.5 mg PO BID [facility] Last Admin: 03/14/17 10:12 Dose: 2.5 mg Cilostazol (Pletal) 100 mg PO BID [facility] Last Admin: 03/14/17 10:13 Dose: 100 mg Diltiazem HCl (Cardizem) 30 mg PO TID [facility] Famotidine (Pepcid) 20 mg PO DAILY [facility] Last Admin: 03/14/17 10:12 Dose: 20 mg Azithromycin 500 mg/ Sodium (Chloride) 250 mls @ 250 mls/hr IVPB DAILY [facility] Last Admin: 03/14/17 10:12 Dose: 250 mls/hr Cefepime HCl 1 gm/ Dextrose 50 mls @ 100 mls/hr IVPB Q24H [facility] Last Admin: 03/13/17 18:35 Dose: 100 mls/hr Insulin Glargine (Lantus) 15 unit SC [facility] Last Admin: 03/13/17 22:18 Dose: Not Given Midodrine (Proamatine) 5 mg PO TID [facility] Last Admin: 03/14/17 13:23 Dose: 5 mg Sevelamer Carbonate (Renvela) 800 mg PO TID [facility] Last Admin: 03/14/17 13:24 Dose: 800 mg - Labs Labs: 03/14/17 06:30 03/14/17 06:30 PT 15.6 SECONDS (9.7-12.2) H 03/10/17 16:18 INR 1.4 03/10/17 16:18 APTT 36 SECONDS (21-34) H 03/10/17 16:18 - Constitutional Appears: Well - Head Exam Head Exam: ATRAUMATIC, NORMAL INSPECTION, NORMOCEPHALIC - Eye Exam Eye Exam: EOMI, Normal appearance, PERRL Pupil Exam: NORMAL ACCOMODATION, PERRL - ENT Exam ENT Exam: Mucous Membranes Moist, Normal Exam - Neck Exam Neck Exam: Full ROM, Normal Inspection. absent: Lymphadenopathy - Respiratory Exam Respiratory Exam: Decreased Breath Sounds - Cardiovascular Exam Cardiovascular Exam: REGULAR RHYTHM, +S1, +S2 - GI/Abdominal Exam GI & Abdominal Exam: Soft, Diminished Bowel Sounds - Rectal Exam Rectal Exam: Deferred Assessment and Plan (1) Afib Status: Acute (2) CHF (congestive heart failure) Status: Acute (3) Uncontrolled diabetes mellitus Status: Acute (4) ESRD (end stage renal disease) on dialysis Status: Chronic (5) Acute pta-HK-agrujpx elevation myocardial infarction Status: Acute (6) Acute pulmonary edema with congestive heart failure Status: Acute (7) Atrial flutter with rapid ventricular response Status: Acute (8) CAD (coronary artery disease) of artery bypass graft Status: Acute (9) Cardiomyopathy Status: Acute (10) Congestive heart failure Status: Acute (11) Diabetic nephropathy associated with type 2 diabetes mellitus Status: Acute (12) Diarrhea Status: Acute (13) Elevated d-dimer Status: Acute (14) Elevated liver enzymes Status: Acute (15) Heart failure Status: Acute (16) Ischemic cardiomyopathy Status: Acute (17) New onset atrial flutter Status: Acute (18) Opacity of lung on imaging study Status: Acute (19) Oxygen desaturation Status: Acute (20) Pneumonia Status: Acute (21) Prophylactic measure Status: Acute (22) CAD (coronary artery disease) Status: Chronic (23) CHF (congestive heart failure) Status: Chronic (24) Diabetes Status: Chronic (25) Diabetic neuropathy Status: Chronic (26) HLD (hyperlipidemia) Status: Chronic (27) HTN (hypertension) Status: Chronic (28) PVD (peripheral vascular disease) Status: Chronic - Assessment and Plan (Free Text) Plan: No acute event overnight Discussed with family Continue hemodialysis Vitals monitoring Continue antibiotics Cardizem Eliquis Cordarone Cardio on board ID on board Accu-Cheks Protonix Labs next a.m.
[2017-03-14] MEDS ORDERED: Sodium Chloride 0.9% 100 ML IV ONE (15:01)
--- NOTE | 2017-03-14 18:53 | CP.PCM.PN ---
Subjective - Date & Time of Evaluation Date of Evaluation: 03/14/17 Time of Evaluation: 18:50 - Subjective Subjective: Patient seen and examined. remains lethargic and on BiPAP Dialysis is on hold for hypotension Continue antibiotics Objective - Vital Signs/Intake and Output Vital Signs (last 24 hours): Temp Pulse Resp BP Pulse Ox 98.3 F 83 98 H 93/46 L 22 L 03/14/17 15:36 03/14/17 15:36 03/14/17 15:36 03/14/17 15:36 03/14/17 15:36 Intake and Output: 03/14/17 03/14/17 06:59 18:59 Intake Total 320 1020 Output Total 1 Balance 319 1020 - Medications Medications: Current Medications Amiodarone HCl (Cordarone) 200 mg PO DAILY [facility] Last Admin: 03/14/17 10:46 Dose: Not Given Apixaban (Eliquis) 2.5 mg PO BID [facility] Last Admin: 03/14/17 18:24 Dose: 2.5 mg Cilostazol (Pletal) 100 mg PO BID [facility] Last Admin: 03/14/17 18:25 Dose: 100 mg Diltiazem HCl (Cardizem) 30 mg PO TID [facility] Famotidine (Pepcid) 20 mg PO DAILY [facility] Last Admin: 03/14/17 10:12 Dose: 20 mg Azithromycin 500 mg/ Sodium (Chloride) 250 mls @ 250 mls/hr IVPB DAILY [facility] Last Admin: 03/14/17 10:12 Dose: 250 mls/hr Cefepime HCl 1 gm/ Dextrose 50 mls @ 100 mls/hr IVPB Q24H [facility] Last Admin: 03/14/17 18:30 Dose: 100 mls/hr Insulin Glargine (Lantus) 15 unit SC HS [facility] Last Admin: 03/13/17 22:18 Dose: Not Given Midodrine (Proamatine) 5 mg PO TID [facility] Last Admin: 03/14/17 18:24 Dose: 5 mg Sevelamer Carbonate (Renvela) 800 mg PO TID [facility] Last Admin: 03/14/17 18:33 Dose: 800 mg - Labs Labs: 03/14/17 06:30 03/14/17 06:30 PT 15.6 SECONDS (9.7-12.2) H 03/10/17 16:18 INR 1.4 03/10/17 16:18 APTT 36 SECONDS (21-34) H 03/10/17 16:18 - Head Exam Head Exam: ATRAUMATIC, NORMOCEPHALIC - Eye Exam Eye Exam: Normal appearance - ENT Exam ENT Exam: Mucous Membranes Moist - Neck Exam Neck Exam: Normal Inspection - Respiratory Exam Respiratory Exam: Decreased Breath Sounds - Cardiovascular Exam Cardiovascular Exam: REGULAR RHYTHM - GI/Abdominal Exam GI & Abdominal Exam: Soft - Extremities Exam Extremities Exam: Pedal Edema Assessment and Plan (1) Pneumonia Assessment & Plan: Continue antibiotics Follow-up chest x-ray Continue BiPAP Prognosis poor Status: Acute (2) ESRD (end stage renal disease) on dialysis Status: Chronic (3) Cardiomyopathy Status: Acute
[2017-03-14] MEDS: (Lantus) Insulin Glargine, Recombinant SC SCH (21:18)
[2017-03-15] MEDS: Cilostazol 100 mg Tab UD PO SCH ×2 (09:17→18:20)
[2017-03-15] MEDS: Azithromycin 500 MG in Sodium Chloride 0.9% 250 ML IVPB SCH (12:00)
[2017-03-15] MEDS: Albumin Human 25% (12.5 gm/50 ml) IV SCH ×2 (12:00→18:18)
[2017-03-15 14:20] LABS: ABG ALLEN TEST POS; DRAW SITE RRA
--- NOTE | 2017-03-15 14:56 | CP.PCM.PN ---
Subjective - Date & Time of Evaluation Date of Evaluation: 03/15/17 Time of Evaluation: 08:00 - Subjective Subjective: remains comatose non verbal not folllowing commands all cultures neg thus far cont empiric rcx dnr in effect Objective - Vital Signs/Intake and Output Vital Signs (last 24 hours): Temp Pulse Resp BP Pulse Ox 98.3 F 89 22 91/47 L 98 03/15/17 08:03 03/15/17 13:31 03/15/17 13:31 03/15/17 13:31 03/15/17 13:31 - Medications Medications: Current Medications Albumin Human (Albumin Human 25% (12.5 Gm/50 Ml)) 12.5 gm IV Q8H [facility] Last Admin: 03/15/17 12:00 Dose: 12.5 gm Amiodarone HCl (Cordarone) 200 mg PO DAILY [facility] Last Admin: 03/15/17 09:18 Dose: Not Given Apixaban (Eliquis) 2.5 mg PO BID [facility] Last Admin: 03/15/17 09:17 Dose: 2.5 mg Cilostazol (Pletal) 100 mg PO BID [facility] Last Admin: 03/15/17 09:17 Dose: 100 mg Diltiazem HCl (Cardizem) 30 mg PO TID [facility] Famotidine (Pepcid) 20 mg PO DAILY [facility] Last Admin: 03/15/17 09:17 Dose: 20 mg Azithromycin 500 mg/ Sodium (Chloride) 250 mls @ 250 mls/hr IVPB DAILY [facility] Last Admin: 03/15/17 12:00 Dose: 250 mls/hr Cefepime HCl 1 gm/ Dextrose 50 mls @ 100 mls/hr IVPB Q24H [facility] Last Admin: 03/14/17 18:30 Dose: 100 mls/hr Insulin Glargine (Lantus) 15 unit SC HS [facility] Last Admin: 03/14/17 21:18 Dose: Not Given Midodrine (Proamatine) 5 mg PO TID [facility] Last Admin: 03/15/17 14:18 Dose: Not Given Sevelamer Carbonate (Renvela) 800 mg PO TID [facility] Last Admin: 03/15/17 14:18 Dose: Not Given - Labs Labs: 03/14/17 06:30 03/14/17 06:30 PT 15.6 SECONDS (9.7-12.2) H 03/10/17 16:18 INR 1.4 03/10/17 16:18 APTT 36 SECONDS (21-34) H 03/10/17 16:18 - Constitutional Appears: Non-toxic, Chronically Ill - Head Exam Head Exam: NORMOCEPHALIC - Eye Exam Eye Exam: PERRL - ENT Exam ENT Exam: Mucous Membranes Dry - Neck Exam Neck Exam: absent: Lymphadenopathy - Respiratory Exam Respiratory Exam: Decreased Breath Sounds, Rhonchi - Cardiovascular Exam Cardiovascular Exam: REGULAR RHYTHM - GI/Abdominal Exam GI & Abdominal Exam: Distended, Soft - Rectal Exam Rectal Exam: Deferred - Exam Exam: NORMAL INSPECTION Assessment and Plan (1) Afib Status: Acute (2) CHF (congestive heart failure) Status: Acute (3) Uncontrolled diabetes mellitus Status: Acute (4) ESRD (end stage renal disease) on dialysis Status: Chronic (5) Acute gfz-KO-hcefgnd elevation myocardial infarction Status: Acute (6) Acute pulmonary edema with congestive heart failure Status: Acute (7) Atrial flutter with rapid ventricular response Status: Acute (8) CAD (coronary artery disease) of artery bypass graft Status: Acute (9) Ischemic cardiomyopathy Status: Acute (10) Opacity of lung on imaging study Status: Acute (11) Pneumonia Status: Acute (12) CAD (coronary artery disease) Status: Chronic (13) CHF (congestive heart failure) Status: Chronic (14) Diabetes Status: Chronic (15) Diabetic neuropathy Status: Chronic (16) HLD (hyperlipidemia) Status: Chronic (17) HTN (hypertension) Status: Chronic (18) PVD (peripheral vascular disease) Status: Chronic
--- NOTE | 2017-03-15 16:25 | RAD ---
Chest x-ray single frontal view History: Congestion. Comparison: 03/11/2017 Findings: Worsening now near complete opacification of the right macario thorax. Moderate to large loculated right pleural effusion. Confluent consolidative changes at the left lung apex as well as at the left mid to lower lung zone. Question small left pleural effusion. Status post median sternotomy and CABG. Cardiomegaly. Calcification at the aortic knob. Degenerative changes in the spine and shoulders. Impression: Worsening now near complete opacification of the right macario thorax. Moderate to large loculated right pleural effusion. Confluent consolidative changes at the left lung apex as well as at the left mid to lower lung zone. Question small left pleural effusion. Status post median sternotomy and CABG. Cardiomegaly. Calcification at the aortic knob.
[2017-03-15 16:27] LABS: ARTERIAL BLOOD GAS MODE BiPAP; ARTERIAL BLOOD HGB O2 SAT 87.6 % (95.0-98.0); CARBOXYHEMOGLOBIN 3.1 % (0.5-1.5); DRAW SITE RRA; HHB 8.6 % (0.0-5.0); METHEMOGLOBIN 0.8 % (0.0-3.0)
[2017-03-15] MEDS: (Lantus) Insulin Glargine, Recombinant SC SCH (21:19)
--- NOTE | 2017-03-15 22:06 | CP.PCM.PN ---
Subjective - Date & Time of Evaluation Date of Evaluation: 03/15/17 Time of Evaluation: 10:40 - Subjective Subjective: clinically same Objective - Vital Signs/Intake and Output Vital Signs (last 24 hours): Temp Pulse Resp BP Pulse Ox 98.4 F 88 22 97/53 L 100 03/15/17 15:00 03/15/17 20:00 03/15/17 20:00 03/15/17 20:00 03/15/17 20:00 Intake and Output: 03/15/17 03/16/17 18:59 06:59 Intake Total 620 Balance 620 - Medications Medications: Current Medications Albumin Human (Albumin Human 25% (12.5 Gm/50 Ml)) 12.5 gm IV Q8H [facility] Last Admin: 03/15/17 18:18 Dose: 12.5 gm Amiodarone HCl (Cordarone) 200 mg PO DAILY [facility] Last Admin: 03/15/17 09:18 Dose: Not Given Apixaban (Eliquis) 2.5 mg PO BID [facility] Last Admin: 03/15/17 18:19 Dose: Not Given Cilostazol (Pletal) 100 mg PO BID [facility] Last Admin: 03/15/17 18:20 Dose: Not Given Diltiazem HCl (Cardizem) 30 mg PO TID [facility] Famotidine (Pepcid) 20 mg PO DAILY [facility] Last Admin: 03/15/17 09:17 Dose: 20 mg Azithromycin 500 mg/ Sodium (Chloride) 250 mls @ 250 mls/hr IVPB DAILY [facility] Last Admin: 03/15/17 12:00 Dose: 250 mls/hr Cefepime HCl 1 gm/ Dextrose 50 mls @ 100 mls/hr IVPB Q24H [facility] Last Admin: 03/15/17 18:19 Dose: 100 mls/hr Insulin Glargine (Lantus) 15 unit SC HS [facility] Last Admin: 03/15/17 21:19 Dose: Not Given Midodrine (Proamatine) 5 mg PO TID [facility] Last Admin: 03/15/17 18:20 Dose: Not Given Sevelamer Carbonate (Renvela) 800 mg PO TID [facility] Last Admin: 03/15/17 18:20 Dose: Not Given - Labs Labs: 03/14/17 06:30 03/14/17 06:30 PT 15.6 SECONDS (9.7-12.2) H 03/10/17 16:18 INR 1.4 03/10/17 16:18 APTT 36 SECONDS (21-34) H 03/10/17 16:18 - Constitutional Appears: Well - Head Exam Head Exam: ATRAUMATIC, NORMAL INSPECTION, NORMOCEPHALIC - Eye Exam Eye Exam: EOMI, Normal appearance, PERRL - ENT Exam ENT Exam: Mucous Membranes Moist, Normal Exam - Neck Exam Neck Exam: Full ROM, Normal Inspection. absent: Lymphadenopathy - Respiratory Exam Respiratory Exam: Decreased Breath Sounds - Cardiovascular Exam Cardiovascular Exam: REGULAR RHYTHM, +S1, +S2. absent: Murmur - GI/Abdominal Exam GI & Abdominal Exam: Soft, Diminished Bowel Sounds - Rectal Exam Rectal Exam: Deferred Assessment and Plan (1) Afib Status: Acute (2) CHF (congestive heart failure) Status: Acute (3) Uncontrolled diabetes mellitus Status: Acute (4) ESRD (end stage renal disease) on dialysis Status: Chronic (5) Acute vtn-MX-[id number] elevation myocardial infarction Status: Acute (6) Acute pulmonary edema with congestive heart failure Status: Acute (7) Atrial flutter with rapid ventricular response Status: Acute (8) CAD (coronary artery disease) of artery bypass graft Status: Acute (9) Cardiomyopathy Status: Acute (10) Congestive heart failure Status: Acute (11) Diabetic nephropathy associated with type 2 diabetes mellitus Status: Acute (12) Diarrhea Status: Acute (13) Elevated d-dimer Status: Acute (14) Elevated liver enzymes Status: Acute (15) Heart failure Status: Acute (16) Ischemic cardiomyopathy Status: Acute (17) New onset atrial flutter Status: Acute (18) Opacity of lung on imaging study Status: Acute (19) Oxygen desaturation Status: Acute (20) Pneumonia Status: Acute (21) Prophylactic measure Status: Acute (22) CAD (coronary artery disease) Status: Chronic (23) CHF (congestive heart failure) Status: Chronic (24) Diabetes Status: Chronic (25) Diabetic neuropathy Status: Chronic (26) HLD (hyperlipidemia) Status: Chronic (27) HTN (hypertension) Status: Chronic (28) PVD (peripheral vascular disease) Status: Chronic - Assessment and Plan (Free Text) Plan: Patient nonverbal Remains lethargic Continue antibiotics Cardizem Eliquis Cordarone Cardio on board ID on board Accu-Cheks Protonix Labs next a.mServando DNR/DNI
[2017-03-16] MEDS: Albumin Human 25% (12.5 gm/50 ml) IV SCH ×5 (02:33→19:14)
--- NOTE | 2017-03-16 09:56 | CP.PCM.PN ---
<TYLER SCHNEIDER - Last Filed: 03/16/17 09:53> Subjective - Date & Time of Evaluation Date of Evaluation: 03/16/17 Time of Evaluation: 09:56 - Subjective Subjective: Tyler Schneider, PGY1, Progress Note for Dr. Seo (Cardio): Pt seen and examined at bedside. No acute events overnight. Pt nonverbal, responds to pain. GCS 9. Daughter at bedside. Objective - Vital Signs/Intake and Output Vital Signs (last 24 hours): Temp Pulse Resp BP Pulse Ox 97.5 F L 63 20 89/43 L 97 03/16/17 07:49 03/16/17 07:49 03/16/17 07:49 03/16/17 07:49 03/16/17 07:49 - Medications Medications: Current Medications Albumin Human (Albumin Human 25% (12.5 Gm/50 Ml)) 12.5 gm IV Q8H [facility] Last Admin: 03/16/17 02:33 Dose: 12.5 gm Amiodarone HCl (Cordarone) 200 mg PO DAILY [facility] Last Admin: 03/15/17 09:18 Dose: Not Given Apixaban (Eliquis) 2.5 mg PO BID [facility] Last Admin: 03/15/17 18:19 Dose: Not Given Cilostazol (Pletal) 100 mg PO BID [facility] Last Admin: 03/15/17 18:20 Dose: Not Given Diltiazem HCl (Cardizem) 30 mg PO TID [facility] Famotidine (Pepcid) 20 mg PO DAILY [facility] Last Admin: 03/15/17 09:17 Dose: 20 mg Azithromycin 500 mg/ Sodium (Chloride) 250 mls @ 250 mls/hr IVPB DAILY [facility] Last Admin: 03/15/17 12:00 Dose: 250 mls/hr Cefepime HCl 1 gm/ Dextrose 50 mls @ 100 mls/hr IVPB Q24H [facility] Last Admin: 03/15/17 18:19 Dose: 100 mls/hr Insulin Glargine (Lantus) 15 unit SC HS [facility] Last Admin: 03/15/17 21:19 Dose: Not Given Midodrine (Proamatine) 5 mg PO TID [facility] Last Admin: 03/15/17 18:20 Dose: Not Given Sevelamer Carbonate (Renvela) 800 mg PO TID [facility] Last Admin: 03/15/17 18:20 Dose: Not Given - Labs Labs: 03/14/17 06:30 03/14/17 06:30 PT 15.6 SECONDS (9.7-12.2) H 03/10/17 16:18 INR 1.4 03/10/17 16:18 APTT 36 SECONDS (21-34) H 03/10/17 16:18 - Constitutional Appears: No Acute Distress - Head Exam Head Exam: ATRAUMATIC, NORMOCEPHALIC - Eye Exam Eye Exam: PERRL - ENT Exam ENT Exam: Mucous Membranes Moist - Respiratory Exam Respiratory Exam: Decreased Breath Sounds - Cardiovascular Exam Cardiovascular Exam: Irregular Rhythm - GI/Abdominal Exam GI & Abdominal Exam: Soft, Hypoactive Bowel Sounds. absent: Distended - Extremities Exam Extremities Exam: Pedal Edema. absent: Calf Tenderness - Neurological Exam Additional comments: GCS 9 ([id number]), opens eyes to command, reponds to pain - Skin Skin Exam: Warm Assessment and Plan - Assessment and Plan (Free Text) Assessment: 76F with PMH ESRD on HD, afib, CHF with EF 55%, admitted for AMS and hypotension , found to have RLL pna. Cardio consulted for optimization of chf and afib. Plan: Diastolic CHF and afib: - Echo 02/05 shows EF 55%. Normal LV systolic function with paradoxical septal motion. L atrial volume index is markedly dilated, R atrium size is severely dilated, systolic function is severely reduced, R ventricle severely dilated. severe pulm HTN - EKG 03/10: HR 50, afib with slow ventricular response. - Trop 0.1540->0.2030, BNP 33,800 on 03/10 - HR 50-68, hypotensive 88/36 on admission, s/p 500 ml bolus in ED. - [employer] called 03/11 for hypotension, 74/38, s/p 2L blous, R femoral central venous line inserted, on 70% HFNC, refused bipap. - Currently rate controlled on Amiodarone 200mg PO daily, still hypotensive, will hold Cardizem 30mg PO TID. - C/w NOAC eliquis 2.5mg PO BID and Midodrine 5mg PO TID for ionotropic effect. - C/w antibiotics per primary team. Discussed with attending, Dr. Seo. Tyler Schneider, PGY1 <Dante Seo - Last Filed: 03/23/17 14:55> Objective - Vital Signs/Intake and Output Vital Signs (last 24 hours): Temp Pulse Resp BP Pulse Ox 98.1 F 76 20 88/52 L 100 03/19/17 07:42 03/19/17 11:01 03/19/17 07:42 03/19/17 07:42 03/19/17 07:42 - Labs Labs: 03/18/17 18:59 03/18/17 18:59 PT 15.6 SECONDS (9.7-12.2) H 03/10/17 16:18 INR 1.4 03/10/17 16:18 APTT 36 SECONDS (21-34) H 03/10/17 16:18 Attending/Attestation - Attestation I have personally seen and examined this patient.: Yes I have fully participated in the care of the patient.: Yes I have reviewed all pertinent clinical information, including history, physical exam and plan: Yes Notes (Text): 03/23/17 14:54 pt at bedside responds to pain non verbal guarded condition
[2017-03-16] MEDS: Cilostazol 100 mg Tab UD PO SCH ×2 (10:57→19:00)
[2017-03-16] MEDS ORDERED: DOPamine 400mg/250ml D5W 400 MG/250 ML BAG IV SCH ×3 (11:01→20:10)
--- NOTE | 2017-03-16 11:27 | CP.PCM.PN ---
Subjective - Date & Time of Evaluation Date of Evaluation: 03/16/17 Time of Evaluation: 09:00 - Subjective Subjective: patient seen and examined. Remains on BiPAP and very lethargic Hypotensive Afebrile Objective - Vital Signs/Intake and Output Vital Signs (last 24 hours): Temp Pulse Resp BP Pulse Ox 97.5 F L 69 14 78/41 L 99 03/16/17 07:49 03/16/17 09:53 03/16/17 09:53 03/16/17 09:53 03/16/17 09:53 - Medications Medications: Current Medications Albumin Human (Albumin Human 25% (12.5 Gm/50 Ml)) 12.5 gm IV Q8H [facility] Last Admin: 03/16/17 10:56 Dose: Not Given Amiodarone HCl (Cordarone) 200 mg PO DAILY [facility] Last Admin: 03/16/17 10:56 Dose: Not Given Apixaban (Eliquis) 2.5 mg PO BID [facility] Last Admin: 03/16/17 10:57 Dose: Not Given Cilostazol (Pletal) 100 mg PO BID [facility] Last Admin: 03/16/17 10:57 Dose: Not Given Diltiazem HCl (Cardizem) 30 mg PO TID [facility] Famotidine (Pepcid) 20 mg PO DAILY [facility] Last Admin: 03/16/17 10:57 Dose: Not Given Azithromycin 500 mg/ Sodium (Chloride) 250 mls @ 250 mls/hr IVPB DAILY [facility] Last Admin: 03/15/17 12:00 Dose: 250 mls/hr Cefepime HCl 1 gm/ Dextrose 50 mls @ 100 mls/hr IVPB Q24H [facility] Last Admin: 03/15/17 18:19 Dose: 100 mls/hr Dopamine HCl/Dextrose (Dopamine 400mg/250ml D5w) 400 mg in 250 mls @ 14.906 mls /hr IV .[id number] [facility]; 5 MCG/KG/MIN PRN Reason: Protocol Insulin Glargine (Lantus) 15 unit SC HS [facility] Last Admin: 03/15/17 21:19 Dose: Not Given Midodrine (Proamatine) 5 mg PO TID [facility] Last Admin: 03/16/17 10:57 Dose: Not Given Sevelamer Carbonate (Renvela) 800 mg PO TID [facility] Last Admin: 03/16/17 10:57 Dose: Not Given - Labs Labs: 03/14/17 06:30 03/14/17 06:30 PT 15.6 SECONDS (9.7-12.2) H 03/10/17 16:18 INR 1.4 03/10/17 16:18 APTT 36 SECONDS (21-34) H 03/10/17 16:18 - Head Exam Head Exam: ATRAUMATIC, NORMOCEPHALIC - ENT Exam ENT Exam: Mucous Membranes Moist - Neck Exam Neck Exam: Normal Inspection - Respiratory Exam Respiratory Exam: Decreased Breath Sounds - Cardiovascular Exam Cardiovascular Exam: REGULAR RHYTHM - GI/Abdominal Exam GI & Abdominal Exam: Soft, Normal Bowel Sounds - Extremities Exam Extremities Exam: Pedal Edema - Neurological Exam Neurological Exam: Altered Assessment and Plan (1) Hypotension Assessment & Plan: Start patient on dopamine Hemodialysis once stable Continue BiPAP for now Patient DNR/DNI Continue antibiotics Status: Acute (2) Pneumonia Status: Acute (3) ESRD (end stage renal disease) on dialysis Status: Chronic (4) Cardiomyopathy Status: Acute
--- NOTE | 2017-03-16 11:40 | CP.PCM.PN ---
Subjective - Date & Time of Evaluation Date of Evaluation: 03/16/17 Time of Evaluation: 11:38 - Subjective Subjective: Seen at bedside with daughter. Very dyspneic - on bi PAP BP remains low; not responsive Cannot obtain ROS No dialysis since 03/13 Objective - Vital Signs/Intake and Output Vital Signs (last 24 hours): Temp Pulse Resp BP Pulse Ox 97.5 F L 69 14 78/41 L 99 03/16/17 07:49 03/16/17 09:53 03/16/17 09:53 03/16/17 09:53 03/16/17 09:53 - Medications Medications: Current Medications Albumin Human (Albumin Human 25% (12.5 Gm/50 Ml)) 12.5 gm IV Q8H [facility] Last Admin: 03/16/17 10:56 Dose: Not Given Amiodarone HCl (Cordarone) 200 mg PO DAILY [facility] Last Admin: 03/16/17 10:56 Dose: Not Given Apixaban (Eliquis) 2.5 mg PO BID [facility] Last Admin: 03/16/17 10:57 Dose: Not Given Cilostazol (Pletal) 100 mg PO BID [facility] Last Admin: 03/16/17 10:57 Dose: Not Given Diltiazem HCl (Cardizem) 30 mg PO TID [facility] Famotidine (Pepcid) 20 mg PO DAILY [facility] Last Admin: 03/16/17 10:57 Dose: Not Given Cefepime HCl 1 gm/ Dextrose 50 mls @ 100 mls/hr IVPB Q24H [facility] Last Admin: 03/15/17 18:19 Dose: 100 mls/hr Dopamine HCl/Dextrose (Dopamine 400mg/250ml D5w) 400 mg in 250 mls @ 14.906 mls /hr IV .[id number] [facility] PRN Reason: 5 MCG/KG/MIN Insulin Glargine (Lantus) 15 unit SC HS [facility] Last Admin: 03/15/17 21:19 Dose: Not Given Midodrine (Proamatine) 10 mg PO TID [facility] Sevelamer Carbonate (Renvela) 800 mg PO TID [facility] Last Admin: 03/16/17 10:57 Dose: Not Given - Labs Labs: 03/14/17 06:30 03/14/17 06:30 PT 15.6 SECONDS (9.7-12.2) H 03/10/17 16:18 INR 1.4 03/10/17 16:18 APTT 36 SECONDS (21-34) H 03/10/17 16:18 - Constitutional Appears: No Acute Distress, Chronically Ill - Head Exam Head Exam: ATRAUMATIC, NORMAL INSPECTION - Eye Exam Eye Exam: EOMI, Normal appearance - Neck Exam Neck Exam: Normal Inspection. absent: Tenderness - Respiratory Exam Respiratory Exam: Rhonchi, Respiratory Distress - Cardiovascular Exam Cardiovascular Exam: Irregular Rhythm, +S1 - GI/Abdominal Exam GI & Abdominal Exam: Soft. absent: Tenderness - Extremities Exam Extremities Exam: Normal Inspection. absent: Tenderness - Neurological Exam Neurological Exam: Altered, Motor Sensory Deficit - Skin Skin Exam: Dry, Warm Assessment and Plan (1) ESRD (end stage renal disease) on dialysis Status: Acute (2) Afib Status: Acute (3) Hypotension Status: Acute (4) Acute pulmonary edema with congestive heart failure Status: Acute (5) CAD (coronary artery disease) of artery bypass graft Status: Acute (6) Cardiomyopathy Status: Acute - Assessment and Plan (Free Text) Plan: Immediate dialysis for CHF Increase midodrine to maintain BP BiPAP Overall px poor- explained to daughter
--- NOTE | 2017-03-16 17:55 | CP.PCM.PN ---
Subjective - Date & Time of Evaluation Date of Evaluation: 03/16/17 Time of Evaluation: 10:40 - Subjective Subjective: clinically same Objective - Vital Signs/Intake and Output Vital Signs (last 24 hours): Temp Pulse Resp BP Pulse Ox 96.7 F L 77 17 91/40 L 100 03/16/17 14:40 03/16/17 16:00 03/16/17 16:00 03/16/17 16:00 03/16/17 16:00 Intake and Output: 03/16/17 03/16/17 06:59 18:59 Intake Total 25 Balance 25 - Medications Medications: Current Medications Albumin Human (Albumin Human 25% (12.5 Gm/50 Ml)) 12.5 gm IV Q8H [facility] Last Admin: 03/16/17 16:35 Dose: 12.5 gm Amiodarone HCl (Cordarone) 200 mg PO DAILY [facility] Last Admin: 03/16/17 10:56 Dose: Not Given Apixaban (Eliquis) 2.5 mg PO BID [facility] Last Admin: 03/16/17 10:57 Dose: Not Given Cilostazol (Pletal) 100 mg PO BID [facility] Last Admin: 03/16/17 10:57 Dose: Not Given Diltiazem HCl (Cardizem) 30 mg PO TID [facility] Famotidine (Pepcid) 20 mg PO DAILY [facility] Last Admin: 03/16/17 10:57 Dose: Not Given Cefepime HCl 1 gm/ Dextrose 50 mls @ 100 mls/hr IVPB Q24H [facility] Last Admin: 03/15/17 18:19 Dose: 100 mls/hr Insulin Glargine (Lantus) 15 unit SC HS [facility] Last Admin: 03/15/17 21:19 Dose: Not Given Midodrine (Proamatine) 10 mg PO TID [facility] Last Admin: 03/16/17 13:32 Dose: Not Given Sevelamer Carbonate (Renvela) 800 mg PO TID [facility] Last Admin: 03/16/17 13:32 Dose: Not Given - Labs Labs: 03/14/17 06:30 03/14/17 06:30 PT 15.6 SECONDS (9.7-12.2) H 03/10/17 16:18 INR 1.4 03/10/17 16:18 APTT 36 SECONDS (21-34) H 03/10/17 16:18 - Constitutional Appears: Well - Head Exam Head Exam: ATRAUMATIC, NORMAL INSPECTION, NORMOCEPHALIC - Eye Exam Eye Exam: EOMI, Normal appearance, PERRL Pupil Exam: NORMAL ACCOMODATION, PERRL - ENT Exam ENT Exam: Mucous Membranes Moist, Normal Exam - Neck Exam Neck Exam: Full ROM, Normal Inspection. absent: Lymphadenopathy - Respiratory Exam Respiratory Exam: Decreased Breath Sounds - Cardiovascular Exam Cardiovascular Exam: REGULAR RHYTHM, +S1, +S2 - GI/Abdominal Exam GI & Abdominal Exam: Soft, Diminished Bowel Sounds - Rectal Exam Rectal Exam: Deferred Assessment and Plan (1) Afib Status: Acute (2) CHF (congestive heart failure) Status: Acute (3) Uncontrolled diabetes mellitus Status: Acute (4) ESRD (end stage renal disease) on dialysis Status: Chronic (5) Acute mmp-UA-ffhuaok elevation myocardial infarction Status: Acute (6) Acute pulmonary edema with congestive heart failure Status: Acute (7) Atrial flutter with rapid ventricular response Status: Acute (8) CAD (coronary artery disease) of artery bypass graft Status: Acute (9) Cardiomyopathy Status: Acute (10) Congestive heart failure Status: Acute (11) Diabetic nephropathy associated with type 2 diabetes mellitus Status: Acute (12) Diarrhea Status: Acute (13) Elevated d-dimer Status: Acute (14) Elevated liver enzymes Status: Acute (15) Heart failure Status: Acute (16) Ischemic cardiomyopathy Status: Acute (17) New onset atrial flutter Status: Acute (18) Opacity of lung on imaging study Status: Acute (19) Oxygen desaturation Status: Acute (20) Pneumonia Status: Acute (21) Prophylactic measure Status: Acute (22) CAD (coronary artery disease) Status: Chronic (23) CHF (congestive heart failure) Status: Chronic (24) Diabetes Status: Chronic (25) Diabetic neuropathy Status: Chronic (26) HLD (hyperlipidemia) Status: Chronic (27) HTN (hypertension) Status: Chronic (28) PVD (peripheral vascular disease) Status: Chronic - Assessment and Plan (Free Text) Plan: Case seen and discussed with staff Remains hypotensive On BiPAP Patient nonverbal Continue antibiotics Cardizem Eliquis Cordarone Cardio on board ID on board [facility] [employer] [place] Labs next a.m.
[2017-03-16 21:06] LABS: ABG MECHANICAL RATE 14; ARTERIAL BLOOD GAS MODE BiPAP; ARTERIAL BLOOD HGB O2 SAT 92.7 % (95.0-98.0); CARBOXYHEMOGLOBIN 2.5 % (0.5-1.5); DRAW SITE RBA; HHB 3.6 % (0.0-5.0); METHEMOGLOBIN 1.2 % (0.0-3.0)
[2017-03-16] MEDS: (Lantus) Insulin Glargine, Recombinant SC SCH (22:00)
[2017-03-16] MEDS: DOPamine 400mg/250ml D5W 400 MG/250 ML BAG IV SCH (22:33)
[2017-03-17] MEDS: Albumin Human 25% (12.5 gm/50 ml) IV SCH ×3 (01:47→17:38)
--- NOTE | 2017-03-17 08:46 | CP.PCM.PN ---
<TYLER SCHNEIDER - Last Filed: 03/17/17 15:48> Subjective - Date & Time of Evaluation Date of Evaluation: 03/17/17 Time of Evaluation: 08:38 - Subjective Subjective: Tyler Schneider, PGY1, Progress Note for Dr. Seo: Pt seen and examined at bedside. No acute events overnight. Pt started on dopamine drip yesterday due to low BP. Pt awake, follows commands, opens eyes spontaneously, not speaking since daughter is not at bedside. Objective - Vital Signs/Intake and Output Vital Signs (last 24 hours): Temp Pulse Resp BP Pulse Ox 98.4 F 89 18 120/66 91 L 03/17/17 07:20 03/17/17 07:20 03/17/17 07:20 03/17/17 07:20 03/17/17 07:20 Intake and Output: 03/17/17 03/17/17 06:59 18:59 Intake Total 170 Balance 170 - Medications Medications: Current Medications Albumin Human (Albumin Human 25% (12.5 Gm/50 Ml)) 12.5 gm IV Q8H [facility] Last Admin: 03/17/17 01:47 Dose: 12.5 gm Amiodarone HCl (Cordarone) 200 mg PO DAILY [facility] Last Admin: 03/16/17 10:56 Dose: Not Given Cilostazol (Pletal) 100 mg PO BID [facility] Last Admin: 03/16/17 19:00 Dose: Not Given Diltiazem HCl (Cardizem) 30 mg PO TID [facility] Famotidine (Pepcid) 20 mg PO DAILY [facility] Last Admin: 03/16/17 10:57 Dose: Not Given Cefepime HCl 1 gm/ Dextrose 50 mls @ 100 mls/hr IVPB Q24H [facility] Last Admin: 03/16/17 19:15 Dose: 100 mls/hr Dopamine HCl/Dextrose (Dopamine 400mg/250ml D5w) 400 mg in 250 mls @ 14.906 mls /hr IV .[id number] [facility] PRN Reason: 5 MCG/KG/MIN Last Admin: 03/16/17 22:33 Dose: 14.906 mls/hr Insulin Glargine (Lantus) 15 unit SC HS [facility] Last Admin: 03/16/17 22:00 Dose: Not Given Midodrine (Proamatine) 10 mg PO TID [facility] Last Admin: 03/16/17 18:30 Dose: Not Given Sevelamer Carbonate (Renvela) 800 mg PO TID [facility] Last Admin: 03/16/17 18:30 Dose: Not Given - Labs Labs: 03/14/17 06:30 03/14/17 06:30 PT 15.6 SECONDS (9.7-12.2) H 03/10/17 16:18 INR 1.4 03/10/17 16:18 APTT 36 SECONDS (21-34) H 03/10/17 16:18 - Constitutional Appears: No Acute Distress - Head Exam Head Exam: ATRAUMATIC, NORMOCEPHALIC - Eye Exam Eye Exam: PERRL - ENT Exam ENT Exam: Mucous Membranes Moist - Respiratory Exam Respiratory Exam: Decreased Breath Sounds - Cardiovascular Exam Cardiovascular Exam: Irregular Rhythm - GI/Abdominal Exam GI & Abdominal Exam: Soft, Normal Bowel Sounds. absent: Tenderness - Extremities Exam Extremities Exam: Pedal Edema. absent: Calf Tenderness - Neurological Exam Neurological Exam: Alert, Awake Additional comments: opens eyes spontaneously, follows commands - Skin Skin Exam: Dry, Warm Assessment and Plan - Assessment and Plan (Free Text) Assessment: 76F with PMH ESRD on HD, afib, CHF with EF 55%, admitted for AMS and hypotension , found to have RLL pna. Cardio consulted for optimization of chf and afib. Plan: Diastolic CHF and afib: - Echo 02/05 shows EF 55%. Normal LV systolic function with paradoxical septal motion. L atrial volume index is markedly dilated, R atrium size is severely dilated, systolic function is severely reduced, R ventricle severely dilated. severe pulm HTN - EKG 03/10: HR 50, afib with slow ventricular response. - Trop 0.1540->0.2030, BNP 33,800 on 03/10 - HR 50-68, hypotensive 88/36 on admission, s/p 500 ml bolus in ED. - [employer] called 03/11 for hypotension, 74/38, s/p 2L blous, R femoral central venous line inserted, on bipap - Rate controlled on Amiodarone 200mg PO daily, still hypotensive, will hold Cardizem 30mg PO TID. Started on dopamine drip per Dr. Villeda on 03/16. Better BP readings 121/63 today. - C/w NOAC eliquis 2.5mg PO BID. Increased Midodrine to 10mg PO TID for ionotropic effect per Dr. Barroso. - C/w antibiotics per primary team. Discussed with attending, Dr. Seo. Tyler Schneider, PGY1 <Dante Seo - Last Filed: 03/23/17 14:54> Objective - Vital Signs/Intake and Output Vital Signs (last 24 hours): Temp Pulse Resp BP Pulse Ox 98.1 F 76 20 88/52 L 100 03/19/17 07:42 03/19/17 11:01 03/19/17 07:42 03/19/17 07:42 03/19/17 07:42 - Labs Labs: 03/18/17 18:59 03/18/17 18:59 PT 15.6 SECONDS (9.7-12.2) H 03/10/17 16:18 INR 1.4 03/10/17 16:18 APTT 36 SECONDS (21-34) H 03/10/17 16:18 Attending/Attestation - Attestation I have personally seen and examined this patient.: Yes I have fully participated in the care of the patient.: Yes I have reviewed all pertinent clinical information, including history, physical exam and plan: Yes Notes (Text): 03/23/17 14:53 dopamone for bp guarded condition
[2017-03-17] MEDS: Cilostazol 100 mg Tab UD PO SCH ×2 (09:15→17:37)
--- NOTE | 2017-03-17 14:02 | CP.PCM.PN ---
Subjective - Date & Time of Evaluation Date of Evaluation: 03/17/17 Time of Evaluation: 14:00 - Subjective Subjective: in distress, on bipap nodding to questions hd yesterday. Objective - Vital Signs/Intake and Output Vital Signs (last 24 hours): Temp Pulse Resp BP Pulse Ox 98.5 F 87 20 124/68 95 03/17/17 11:20 03/17/17 11:20 03/17/17 11:20 03/17/17 13:20 03/17/17 11:20 Intake and Output: 03/17/17 03/17/17 06:59 18:59 Intake Total 170 Balance 170 - Medications Medications: Current Medications Albumin Human (Albumin Human 25% (12.5 Gm/50 Ml)) 12.5 gm IV Q8H [facility] Last Admin: 03/17/17 11:27 Dose: 12.5 gm Amiodarone HCl (Cordarone) 200 mg PO DAILY [facility] Last Admin: 03/17/17 10:56 Dose: Not Given Cilostazol (Pletal) 100 mg PO BID [facility] Last Admin: 03/17/17 09:15 Dose: Not Given Diltiazem HCl (Cardizem) 30 mg PO TID [facility] Famotidine (Pepcid) 20 mg PO DAILY [facility] Last Admin: 03/17/17 09:15 Dose: Not Given Cefepime HCl 1 gm/ Dextrose 50 mls @ 100 mls/hr IVPB Q24H [facility] Last Admin: 03/16/17 19:15 Dose: 100 mls/hr Dopamine HCl/Dextrose (Dopamine 400mg/250ml D5w) 400 mg in 250 mls @ 14.906 mls /hr IV .[id number] [facility] PRN Reason: 5 MCG/KG/MIN Last Admin: 03/16/17 22:33 Dose: 14.906 mls/hr Insulin Glargine (Lantus) 15 unit SC HS [facility] Last Admin: 03/16/17 22:00 Dose: Not Given Midodrine (Proamatine) 10 mg PO TID [facility] Last Admin: 03/17/17 11:10 Dose: 10 mg Sevelamer Carbonate (Renvela) 800 mg PO TID [facility] Last Admin: 03/17/17 09:15 Dose: Not Given - Labs Labs: 03/14/17 06:30 03/14/17 06:30 PT 15.6 SECONDS (9.7-12.2) H 03/10/17 16:18 INR 1.4 03/10/17 16:18 APTT 36 SECONDS (21-34) H 03/10/17 16:18 - Constitutional Appears: In Acute Distress, Chronically Ill - Head Exam Head Exam: NORMAL INSPECTION - Eye Exam Eye Exam: Normal appearance (bipap) - Neck Exam Neck Exam: Normal Inspection - Respiratory Exam Respiratory Exam: Accessory Muscle Use, Decreased Breath Sounds - Cardiovascular Exam Cardiovascular Exam: Irregular Rhythm - GI/Abdominal Exam GI & Abdominal Exam: Distended, Soft, Normal Bowel Sounds - Extremities Exam Extremities Exam: Pedal Edema - Skin Skin Exam: Intact, Warm Assessment and Plan (1) Hypotension Status: Acute (2) Afib Status: Acute (3) CHF (congestive heart failure) Status: Acute (4) ESRD (end stage renal disease) on dialysis Status: Chronic (5) Atrial flutter with rapid ventricular response Status: Acute - Assessment and Plan (Free Text) Assessment: hd today, gentle uf as tolerated maintain midodrine
[2017-03-17] MEDS: DOPamine 400mg/250ml D5W 400 MG/250 ML BAG IV SCH (14:57)
--- NOTE | 2017-03-17 16:46 | CP.PCM.PN ---
Subjective - Date & Time of Evaluation Date of Evaluation: 03/17/17 Time of Evaluation: 14:00 - Subjective Subjective: Patient seen and examined. Remained on BiPAP for shortness of breath Desaturate in the mid 70s Status post hemodialysis yesterday Patient is awake and responsive Objective - Vital Signs/Intake and Output Vital Signs (last 24 hours): Temp Pulse Resp BP Pulse Ox 98.1 F 92 H 18 130/72 95 03/17/17 15:25 03/17/17 15:25 03/17/17 15:25 03/17/17 15:25 03/17/17 15:25 Intake and Output: 03/17/17 03/17/17 06:59 18:59 Intake Total 170 470 Balance 170 470 - Medications Medications: Current Medications Albumin Human (Albumin Human 25% (12.5 Gm/50 Ml)) 12.5 gm IV Q8H [facility] Last Admin: 03/17/17 11:27 Dose: 12.5 gm Amiodarone HCl (Cordarone) 200 mg PO DAILY [facility] Last Admin: 03/17/17 10:56 Dose: Not Given Cilostazol (Pletal) 100 mg PO BID [facility] Last Admin: 03/17/17 09:15 Dose: Not Given Diltiazem HCl (Cardizem) 30 mg PO TID [facility] Famotidine (Pepcid) 20 mg PO DAILY [facility] Last Admin: 03/17/17 09:15 Dose: Not Given Cefepime HCl 1 gm/ Dextrose 50 mls @ 100 mls/hr IVPB Q24H [facility] Last Admin: 03/16/17 19:15 Dose: 100 mls/hr Dopamine HCl/Dextrose (Dopamine 400mg/250ml D5w) 400 mg in 250 mls @ 14.906 mls /hr IV .[id number] [facility] PRN Reason: 5 MCG/KG/MIN Last Admin: 03/17/17 14:57 Dose: 14.906 mls/hr Insulin Glargine (Lantus) 15 unit SC HS [facility] Last Admin: 03/16/17 22:00 Dose: Not Given Midodrine (Proamatine) 10 mg PO TID [facility] Last Admin: 03/17/17 14:51 Dose: 10 mg Sevelamer Carbonate (Renvela) 800 mg PO TID [facility] Last Admin: 03/17/17 14:50 Dose: 800 mg - Labs Labs: 03/14/17 06:30 03/14/17 06:30 PT 15.6 SECONDS (9.7-12.2) H 03/10/17 16:18 INR 1.4 03/10/17 16:18 APTT 36 SECONDS (21-34) H 03/10/17 16:18 - Head Exam Head Exam: ATRAUMATIC, NORMOCEPHALIC - ENT Exam ENT Exam: Mucous Membranes Moist - Neck Exam Neck Exam: Normal Inspection - Respiratory Exam Respiratory Exam: Decreased Breath Sounds Assessment and Plan (1) Pneumonia Assessment & Plan: Patient desaturated in the mid 70s without BiPAP Continue hemodialysis and IV antibiotics Prognosis poor Status: Acute (2) Hypotension Assessment & Plan: Continue dopamine Continue antibiotics Status: Acute (3) ESRD (end stage renal disease) on dialysis Status: Chronic (4) Cardiomyopathy Status: Acute
--- NOTE | 2017-03-17 18:09 | CP.PCM.PN ---
Subjective - Date & Time of Evaluation Date of Evaluation: 03/17/17 Time of Evaluation: 11:00 - Subjective Subjective: clinically same Objective - Vital Signs/Intake and Output Vital Signs (last 24 hours): Temp Pulse Resp BP Pulse Ox 98.1 F 92 H 18 130/72 95 03/17/17 15:25 03/17/17 15:25 03/17/17 15:25 03/17/17 15:25 03/17/17 15:25 Intake and Output: 03/17/17 03/17/17 06:59 18:59 Intake Total 170 470 Balance 170 470 - Medications Medications: Current Medications Albumin Human (Albumin Human 25% (12.5 Gm/50 Ml)) 12.5 gm IV Q8H [facility] Last Admin: 03/17/17 17:38 Dose: 12.5 gm Amiodarone HCl (Cordarone) 200 mg PO DAILY [facility] Last Admin: 03/17/17 10:56 Dose: Not Given Cilostazol (Pletal) 100 mg PO BID [facility] Last Admin: 03/17/17 17:37 Dose: 100 mg Diltiazem HCl (Cardizem) 30 mg PO TID [facility] Famotidine (Pepcid) 20 mg PO DAILY [facility] Last Admin: 03/17/17 09:15 Dose: Not Given Cefepime HCl 1 gm/ Dextrose 50 mls @ 100 mls/hr IVPB Q24H [facility] Last Admin: 03/17/17 17:37 Dose: 100 mls/hr Dopamine HCl/Dextrose (Dopamine 400mg/250ml D5w) 400 mg in 250 mls @ 14.906 mls /hr IV .[id number] [facility] PRN Reason: 5 MCG/KG/MIN Last Admin: 03/17/17 14:57 Dose: 14.906 mls/hr Insulin Glargine (Lantus) 15 unit SC HS [facility] Last Admin: 03/16/17 22:00 Dose: Not Given Midodrine (Proamatine) 10 mg PO TID [facility] Last Admin: 03/17/17 17:37 Dose: 10 mg Sevelamer Carbonate (Renvela) 800 mg PO TID [facility] Last Admin: 03/17/17 17:37 Dose: 800 mg - Labs Labs: 03/14/17 06:30 03/14/17 06:30 PT 15.6 SECONDS (9.7-12.2) H 03/10/17 16:18 INR 1.4 03/10/17 16:18 APTT 36 SECONDS (21-34) H 03/10/17 16:18 - Constitutional Appears: Well - Head Exam Head Exam: ATRAUMATIC, NORMAL INSPECTION, NORMOCEPHALIC - Eye Exam Eye Exam: EOMI, Normal appearance, PERRL Pupil Exam: NORMAL ACCOMODATION, PERRL - ENT Exam ENT Exam: Mucous Membranes Moist, Normal Exam - Neck Exam Neck Exam: Full ROM, Normal Inspection. absent: Lymphadenopathy - Respiratory Exam Respiratory Exam: Decreased Breath Sounds - Cardiovascular Exam Cardiovascular Exam: REGULAR RHYTHM, +S1, +S2 - GI/Abdominal Exam GI & Abdominal Exam: Soft, Diminished Bowel Sounds - Rectal Exam Rectal Exam: Deferred Assessment and Plan (1) Afib Status: Acute (2) CHF (congestive heart failure) Status: Acute (3) Uncontrolled diabetes mellitus Status: Acute (4) ESRD (end stage renal disease) on dialysis Status: Chronic (5) Acute hoy-XN-asrokxs elevation myocardial infarction Status: Acute (6) Acute pulmonary edema with congestive heart failure Status: Acute (7) Atrial flutter with rapid ventricular response Status: Acute (8) CAD (coronary artery disease) of artery bypass graft Status: Acute (9) Cardiomyopathy Status: Acute (10) Congestive heart failure Status: Acute (11) Diabetic nephropathy associated with type 2 diabetes mellitus Status: Acute (12) Diarrhea Status: Acute (13) Elevated d-dimer Status: Acute (14) Elevated liver enzymes Status: Acute (15) Heart failure Status: Acute (16) Ischemic cardiomyopathy Status: Acute (17) New onset atrial flutter Status: Acute (18) Opacity of lung on imaging study Status: Acute (19) Oxygen desaturation Status: Acute (20) Pneumonia Status: Acute (21) Prophylactic measure Status: Acute (22) CAD (coronary artery disease) Status: Chronic (23) CHF (congestive heart failure) Status: Chronic (24) Diabetes Status: Chronic (25) Diabetic neuropathy Status: Chronic (26) HLD (hyperlipidemia) Status: Chronic (27) HTN (hypertension) Status: Chronic (28) PVD (peripheral vascular disease) Status: Chronic - Assessment and Plan (Free Text) Plan: Patient seen and examined at bedside On BiPAP Continue HD Poor condition explained to family Continue antibiotics Cardizem Areli Cardio on board ID on board [facility] next a.m. Patient DNR/DNI
[2017-03-17] MEDS: (Lantus) Insulin Glargine, Recombinant SC SCH (21:40)
[2017-03-18] MEDS: Albumin Human 25% (12.5 gm/50 ml) IV SCH ×3 (02:13→19:16)
[2017-03-18] MEDS: DOPamine 400mg/250ml D5W 400 MG/250 ML BAG IV SCH (07:59)
[2017-03-18] MEDS: Cilostazol 100 mg Tab UD PO SCH ×3 (09:17→19:50)
--- NOTE | 2017-03-18 13:52 | CP.PCM.PN ---
Subjective - Date & Time of Evaluation Date of Evaluation: 03/18/17 Time of Evaluation: 10:30 - Subjective Subjective: Patient seen and examined Remains on BiPAP Open eyes to stimuli Afebrile On hemodialysis Desaturates without BiPAP Objective - Vital Signs/Intake and Output Vital Signs (last 24 hours): Temp Pulse Resp BP Pulse Ox 98.6 F 111 H 20 134/68 98 03/18/17 08:25 03/18/17 11:45 03/18/17 08:25 03/18/17 08:25 03/18/17 08:25 Intake and Output: 03/18/17 03/18/17 06:59 18:59 Intake Total 120 Balance 120 - Medications Medications: Current Medications Albumin Human (Albumin Human 25% (12.5 Gm/50 Ml)) 12.5 gm IV Q8H [facility] Last Admin: 03/18/17 09:14 Dose: 12.5 gm Amiodarone HCl (Cordarone) 200 mg PO DAILY [facility] Last Admin: 03/18/17 09:15 Dose: 200 mg Cilostazol (Pletal) 100 mg PO BID [facility] Last Admin: 03/18/17 09:17 Dose: 100 mg Diltiazem HCl (Cardizem) 30 mg PO TID [facility] Famotidine (Pepcid) 20 mg PO DAILY [facility] Last Admin: 03/18/17 09:15 Dose: 20 mg Cefepime HCl 1 gm/ Dextrose 50 mls @ 100 mls/hr IVPB Q24H [facility] Last Admin: 03/17/17 17:37 Dose: 100 mls/hr Dopamine HCl/Dextrose (Dopamine 400mg/250ml D5w) 400 mg in 250 mls @ 14.906 mls /hr IV .[id number] [facility] PRN Reason: 5 MCG/KG/MIN Last Admin: 03/18/17 07:59 Dose: 14.906 mls/hr Insulin Glargine (Lantus) 15 unit SC HS [facility] Last Admin: 03/17/17 21:40 Dose: Not Given Midodrine (Proamatine) 10 mg PO TID [facility] Last Admin: 03/18/17 09:16 Dose: 10 mg Sevelamer Carbonate (Renvela) 800 mg PO TID [facility] Last Admin: 03/18/17 09:15 Dose: 800 mg - Labs Labs: 03/14/17 06:30 03/14/17 06:30 PT 15.6 SECONDS (9.7-12.2) H 03/10/17 16:18 INR 1.4 03/10/17 16:18 APTT 36 SECONDS (21-34) H 03/10/17 16:18 - Head Exam Head Exam: ATRAUMATIC, NORMOCEPHALIC - Eye Exam Eye Exam: Normal appearance - ENT Exam ENT Exam: Mucous Membranes Moist - Neck Exam Neck Exam: Normal Inspection - Respiratory Exam Respiratory Exam: Decreased Breath Sounds - Cardiovascular Exam Cardiovascular Exam: REGULAR RHYTHM - GI/Abdominal Exam GI & Abdominal Exam: Soft, Normal Bowel Sounds Assessment and Plan (1) Pneumonia Assessment & Plan: Continue hemodialysis and dopamine Continue BiPAP Prognosis poor Patient DNR/DNI Status: Acute (2) Hypotension Status: Acute (3) ESRD (end stage renal disease) on dialysis Status: Chronic (4) Cardiomyopathy Status: Acute
--- NOTE | 2017-03-18 14:27 | CP.PCM.PN ---
Subjective - Date & Time of Evaluation Date of Evaluation: 03/18/17 Time of Evaluation: 14:24 - Subjective Subjective: Lethargic; on biPAP BP better with dopamine, midodrine Will need dialysis again due to CHF Cannot connot converse with pt due to dyspnea Objective - Vital Signs/Intake and Output Vital Signs (last 24 hours): Temp Pulse Resp BP Pulse Ox 98.6 F 111 H 20 134/68 98 03/18/17 08:25 03/18/17 11:45 03/18/17 08:25 03/18/17 08:25 03/18/17 08:25 Intake and Output: 03/18/17 03/18/17 06:59 18:59 Intake Total 120 Balance 120 - Medications Medications: Current Medications Albumin Human (Albumin Human 25% (12.5 Gm/50 Ml)) 12.5 gm IV Q8H [facility] Last Admin: 03/18/17 09:14 Dose: 12.5 gm Amiodarone HCl (Cordarone) 200 mg PO DAILY [facility] Last Admin: 03/18/17 09:15 Dose: 200 mg Cilostazol (Pletal) 100 mg PO BID [facility] Last Admin: 03/18/17 09:17 Dose: 100 mg Diltiazem HCl (Cardizem) 30 mg PO TID [facility] Famotidine (Pepcid) 20 mg PO DAILY [facility] Last Admin: 03/18/17 09:15 Dose: 20 mg Cefepime HCl 1 gm/ Dextrose 50 mls @ 100 mls/hr IVPB Q24H [facility] Last Admin: 03/17/17 17:37 Dose: 100 mls/hr Dopamine HCl/Dextrose (Dopamine 400mg/250ml D5w) 400 mg in 250 mls @ 14.906 mls /hr IV .[id number] [facility] PRN Reason: 5 MCG/KG/MIN Last Admin: 03/18/17 07:59 Dose: 14.906 mls/hr Insulin Glargine (Lantus) 15 unit SC HS [facility] Last Admin: 03/17/17 21:40 Dose: Not Given Midodrine (Proamatine) 10 mg PO TID [facility] Last Admin: 03/18/17 13:49 Dose: Not Given Sevelamer Carbonate (Renvela) 800 mg PO TID [facility] Last Admin: 03/18/17 13:49 Dose: Not Given - Labs Labs: 03/14/17 06:30 03/14/17 06:30 PT 15.6 SECONDS (9.7-12.2) H 03/10/17 16:18 INR 1.4 03/10/17 16:18 APTT 36 SECONDS (21-34) H 03/10/17 16:18 - Constitutional Appears: In Acute Distress, Confused, Chronically Ill - Head Exam Head Exam: ATRAUMATIC, NORMAL INSPECTION - Eye Exam Eye Exam: EOMI, Normal appearance - Neck Exam Neck Exam: Normal Inspection. absent: Tenderness - Respiratory Exam Respiratory Exam: Rhonchi, Respiratory Distress, Stridor - Cardiovascular Exam Cardiovascular Exam: Irregular Rhythm, +S1 - GI/Abdominal Exam GI & Abdominal Exam: Soft. absent: Tenderness - Extremities Exam Extremities Exam: Pedal Edema, Tenderness - Neurological Exam Neurological Exam: Altered, CN II-XII Intact - Skin Skin Exam: Dry, Warm Assessment and Plan (1) ESRD (end stage renal disease) on dialysis Status: Acute (2) Afib Status: Acute (3) Hypotension Status: Acute (4) Acute pulmonary edema with congestive heart failure Status: Acute (5) CAD (coronary artery disease) of artery bypass graft Status: Acute (6) Cardiomyopathy Status: Acute - Assessment and Plan (Free Text) Plan: Immediate dialysis for CHF Stop dopamine if dialysis tolerated Continue midodrine Poor px - needs frequent dialysis for CHF
--- NOTE | 2017-03-18 15:46 | CP.PCM.PN ---
Subjective - Date & Time of Evaluation Date of Evaluation: 03/18/17 Time of Evaluation: 01:45 - Subjective Subjective: 76 y/o FEMALE SEEN AND EXAMINED TODAY. LETHARGIC, ON BIPAP. Objective - Vital Signs/Intake and Output Vital Signs (last 24 hours): Temp Pulse Resp BP Pulse Ox 98.6 F 107 H 20 134/68 98 03/18/17 08:25 03/18/17 15:37 03/18/17 08:25 03/18/17 08:25 03/18/17 08:25 Intake and Output: 03/18/17 03/18/17 06:59 18:59 Intake Total 120 Balance 120 - Medications Medications: Current Medications Albumin Human (Albumin Human 25% (12.5 Gm/50 Ml)) 12.5 gm IV Q8H [facility] Last Admin: 03/18/17 09:14 Dose: 12.5 gm Amiodarone HCl (Cordarone) 200 mg PO DAILY [facility] Last Admin: 03/18/17 09:15 Dose: 200 mg Cilostazol (Pletal) 100 mg PO BID [facility] Last Admin: 03/18/17 10:00 Dose: Not Given Diltiazem HCl (Cardizem) 30 mg PO TID [facility] Famotidine (Pepcid) 20 mg PO DAILY [facility] Last Admin: 03/18/17 09:15 Dose: 20 mg Cefepime HCl 1 gm/ Dextrose 50 mls @ 100 mls/hr IVPB Q24H [facility] Last Admin: 03/17/17 17:37 Dose: 100 mls/hr Dopamine HCl/Dextrose (Dopamine 400mg/250ml D5w) 400 mg in 250 mls @ 14.906 mls /hr IV .[id number] [facility] PRN Reason: 5 MCG/KG/MIN Last Admin: 03/18/17 07:59 Dose: 14.906 mls/hr Insulin Glargine (Lantus) 15 unit SC HS [facility] Last Admin: 03/17/17 21:40 Dose: Not Given Midodrine (Proamatine) 10 mg PO TID [facility] Last Admin: 03/18/17 13:49 Dose: Not Given Sevelamer Carbonate (Renvela) 800 mg PO TID [facility] Last Admin: 03/18/17 13:49 Dose: Not Given - Labs Labs: 03/14/17 06:30 03/14/17 06:30 PT 15.6 SECONDS (9.7-12.2) H 03/10/17 16:18 INR 1.4 03/10/17 16:18 APTT 36 SECONDS (21-34) H 03/10/17 16:18 Assessment and Plan - Assessment and Plan (Free Text) Plan: PT WITH ESRD, HD, HYPOTENSION, CHF, CARDIOMYOPATHY, CAD, HD FOR CHF WITH DR FABIAN, BP IMPROVED W/DOPAMINE DRIP AND MIDODRINE, TLC WILL BE REMOVED TODAY, TELEPHONE CONSENT FOR PICC LINE INSERTION OBTAINED BY ME, WITNESSED BY ROSSI ROMAN, HOSPICE EVAL WITH LILLIE IN AM. WILL CONTINUE TO MONITOR.
--- NOTE | 2017-03-18 16:07 | PCM.RRTMUL ---
LARDER COOK Nurses Assessment - Situation LARDER COOK Responder Arrival Time:: 03:43 Location:: [address] [place] [address] Room Number:: 651-B LARDER COOK Reason for Call: Hypotension LARDER COOK Called By: RN - IV IV Inserted during LARDER COOK?: No - Respiratory Received Nebulizer Treatments:: No Was the Patient Ventilated with Bag/Mask 100% O2?: No Secretions Suctioned?: No Was the Patient Intubated?: No Was the Patient Placed on a Ventilator?: No - Ventilator Settings FIO2 (% Oxygen):: 100 - Diagnostic Test Ordered EKG:: No Chest X-Ray:: No (Portable Cxr ordered but not done yet during rapid response) CT Scan:: No - Stat Labs Ordered LARDER COOK Stat Labs Ordered:: CBC, TROPONIN, LACTIC ACID, ABG LARDER COOK Other Labs Ordered:: CMP, Pro-BNP CPR started during LARDER COOK?: No - Vital Signs Pulse Rate:: 107 - Marcin Coma Scale Coma Scale Eye Opening:: Spontaneous Coma Scale Motor:: Movement to pain stimulus Coma Scale Verbal:: Confused/able to answer Coma Scale Total:: 13 - Sepsis Screen Part 1 Sepsis Screen Part 1: Hypotensive - Time LARDER COOK Ended Time LARDER COOK Ended:: 08:11 - Vital Signs at end of LARDER COOK Blood Pressure:: 106/85 Pulse Rate:: 65 O2 Sat by Pulse Oximetry:: 97 - Recommendations 5) LARDER COOK Level of Care Recommendations: Remain in current setting 6) Notifications: Attending Physician I.Reason for LARDER COOK - A) Acute Change in Patient: (Select all that apply): Uncontrolled Bleeding, Hemoptysis, Hematemesis, Melena - B) Neurological Status Other (Please specify): Eyes opened spontaneously but patient non-verbal - Constitutional Appears: Chronically Ill - Head Head Exam: ATRAUMATIC, NORMAL INSPECTION, NORMOCEPHALIC - Eyes Eye Exam: EOMI - Respiratory Exam Respiratory Exam: Clear to Ausculation Bilateral - Cardiovascular Exam Cardiovascular Exam: REGULAR RHYTHM, +S1, +S2 - GI/Abdominal Exam GI & Abdominal Exam: Soft, Normal Bowel Sounds - Neurological Exam Neurological Exam: Awake - Extremities Exam Additional comments: bilateral venous stasis changes and edema Plan - B. Assessment of Findings&Treatment Plan Rapid response called due to uncontrolled bleeding from Right Femoral vein TLC removal. Attending arrived and applied pressure directly onto the site of bleeding for several minutes until hemostasis achieved. Estimated blood loss 20cc.
--- NOTE | 2017-03-18 16:18 | RAD ---
HISTORY: verify right PICC COMPARISON: No prior. FINDINGS: LUNGS: Increasing opacity of mid upper right lung. Lower right lung obscured by enlarging pleural effusion. New opacity of left lung, most prominent at the lung base. No evidence of left pleural effusion. Left apical pleural thickening noted. PLEURA: As above. No pneumothorax. CARDIOVASCULAR: Status post CABG. Probable mild cardiomegaly though evaluation is limited on the basis of this examination. New right PICC catheter noted. Level of determination difficult to evaluate due to markedly oblique positioning of patient. Likely right atrial or cavoatrial. OSSEOUS STRUCTURES: No significant abnormalities. VISUALIZED UPPER ABDOMEN: Normal. OTHER FINDINGS: None. IMPRESSION: Increasing bilateral pulmonary infiltrate, nonspecific. Pulmonary edema versus bilateral pneumonia. New right PICC catheter. Point of termination not precisely determined on the basis of this oblique examination. Increasing right pleural effusion.
--- NOTE | 2017-03-18 19:01 | CP.PCM.PN ---
Subjective - Date & Time of Evaluation Date of Evaluation: 03/18/17 Time of Evaluation: 10:40 - Subjective Subjective: clinically same Objective - Vital Signs/Intake and Output Vital Signs (last 24 hours): Temp Pulse Resp BP Pulse Ox 98.1 F 96 H 20 121/71 96 03/18/17 18:07 03/18/17 18:07 03/18/17 18:07 03/18/17 18:07 03/18/17 18:07 Intake and Output: 03/18/17 03/19/17 18:59 06:59 Intake Total 410 Balance 410 - Medications Medications: Current Medications Albumin Human (Albumin Human 25% (12.5 Gm/50 Ml)) 12.5 gm IV Q8H [facility] Last Admin: 03/18/17 09:14 Dose: 12.5 gm Amiodarone HCl (Cordarone) 200 mg PO DAILY [facility] Last Admin: 03/18/17 09:15 Dose: 200 mg Cilostazol (Pletal) 100 mg PO BID [facility] Last Admin: 03/18/17 10:00 Dose: Not Given Diltiazem HCl (Cardizem) 30 mg PO TID [facility] Famotidine (Pepcid) 20 mg PO DAILY [facility] Last Admin: 03/18/17 09:15 Dose: 20 mg Cefepime HCl 1 gm/ Dextrose 50 mls @ 100 mls/hr IVPB Q24H [facility] Last Admin: 03/17/17 17:37 Dose: 100 mls/hr Dopamine HCl/Dextrose (Dopamine 400mg/250ml D5w) 400 mg in 250 mls @ 14.906 mls /hr IV .[id number] [facility] PRN Reason: 5 MCG/KG/MIN Last Admin: 03/18/17 07:59 Dose: 14.906 mls/hr Insulin Glargine (Lantus) 15 unit SC HS [facility] Last Admin: 03/17/17 21:40 Dose: Not Given Midodrine (Proamatine) 10 mg PO TID [facility] Last Admin: 03/18/17 13:49 Dose: Not Given Sevelamer Carbonate (Renvela) 800 mg PO TID [facility] Last Admin: 03/18/17 13:49 Dose: Not Given - Labs Labs: 03/14/17 06:30 03/14/17 06:30 PT 15.6 SECONDS (9.7-12.2) H 03/10/17 16:18 INR 1.4 03/10/17 16:18 APTT 36 SECONDS (21-34) H 03/10/17 16:18 - Constitutional Appears: Well - Head Exam Head Exam: ATRAUMATIC, NORMAL INSPECTION, NORMOCEPHALIC - Eye Exam Eye Exam: EOMI, Normal appearance, PERRL Pupil Exam: NORMAL ACCOMODATION, PERRL - ENT Exam ENT Exam: Mucous Membranes Moist, Normal Exam - Neck Exam Neck Exam: Full ROM, Normal Inspection. absent: Lymphadenopathy - Respiratory Exam Respiratory Exam: Decreased Breath Sounds - Cardiovascular Exam Cardiovascular Exam: REGULAR RHYTHM, +S1, +S2 - GI/Abdominal Exam GI & Abdominal Exam: Soft, Diminished Bowel Sounds - Rectal Exam Rectal Exam: Deferred Assessment and Plan (1) Afib Status: Acute (2) CHF (congestive heart failure) Status: Acute (3) Uncontrolled diabetes mellitus Status: Acute (4) ESRD (end stage renal disease) on dialysis Status: Chronic (5) Acute [id number] elevation myocardial infarction Status: Acute (6) Acute pulmonary edema with congestive heart failure Status: Acute (7) Atrial flutter with rapid ventricular response Status: Acute (8) CAD (coronary artery disease) of artery bypass graft Status: Acute (9) Cardiomyopathy Status: Acute (10) Congestive heart failure Status: Acute (11) Diabetic nephropathy associated with type 2 diabetes mellitus Status: Acute (12) Diarrhea Status: Acute (13) Elevated d-dimer Status: Acute (14) Elevated liver enzymes Status: Acute (15) Heart failure Status: Acute (16) Ischemic cardiomyopathy Status: Acute (17) New onset atrial flutter Status: Acute (18) Opacity of lung on imaging study Status: Acute (19) Oxygen desaturation Status: Acute (20) Pneumonia Status: Acute (21) Prophylactic measure Status: Acute (22) CAD (coronary artery disease) Status: Chronic (23) CHF (congestive heart failure) Status: Chronic (24) Diabetes Status: Chronic (25) Diabetic neuropathy Status: Chronic (26) HLD (hyperlipidemia) Status: Chronic (27) HTN (hypertension) Status: Chronic (28) PVD (peripheral vascular disease) Status: Chronic - Assessment and Plan (Free Text) Plan: Patient lethargic On BiPAP Blood pressure control with dopamine continue HD Continue cefepime Lantus Hospice evaluation Cardizem Cordarone Cardio on board ID on board Accu-Cheks Patient DNR Poor prognosis explained to family
[2017-03-18 19:02] LABS: BASO % 0.9 % (0.0-2.0); EOS % 0.1 % (0.0-4.0); HEMATOCRIT 33.5 % (34.0-47.0); LYMPH # 0.2 K/uL (1.0-4.3); LYMPH % 3.6 % (20.0-40.0); MEAN CELL VOLUME 108.8 fL (81.0-99.0); MEAN CORPUSCULAR HGB CONC 31.3 g/dL (33.0-37.0); MEAN PLATELET VOLUME 9.5 fL (7.2-11.7); MONO # 0.7 K/uL (0.0-0.8); MONO % 12.1 % (0.0-10.0); NRBC % 0.3 % (0.0-2.0); PLATELET COUNT 119 K/uL (130-400); RED CELL DISTRIBUTION WIDTH 22.2 % (11.5-14.5); WHITE BLOOD COUNT 5.5 K/uL (4.8-10.8)
[2017-03-18 19:10] LABS: POTASSIUM 4.7 mmol/L (3.6-5.2)
[2017-03-18 19:13] LABS: ALB/GLOB RATIO 1.7 (1.0-2.1); CALCIUM 10.7 mg/dl (8.6-10.4); TOTAL PROTEIN 6.7 g/dL (6.3-8.3)
[2017-03-18 19:48] LABS: NEUTROPHIL 81 % (50-75); TOTAL CELLS COUNTED 100
[2017-03-18] MEDS: (Lantus) Insulin Glargine, Recombinant SC SCH (23:07)
[2017-03-19] MEDS: DOPamine 400mg/250ml D5W 400 MG/250 ML BAG IV SCH (01:03)
[2017-03-19 01:05] VITALS: RESP 20
[2017-03-19] MEDS: Albumin Human 25% (12.5 gm/50 ml) IV SCH ×2 (02:14→11:33)
[2017-03-19 07:43] VITALS: TEMP 98.1; O2SAT 100
[2017-03-19 07:46] VITALS: BP 88/52
[2017-03-19] MEDS: Cilostazol 100 mg Tab UD PO SCH (10:00)
--- NOTE | 2017-03-19 10:28 | CP.PCM.PN ---
Subjective - Date & Time of Evaluation Date of Evaluation: 03/19/17 Time of Evaluation: 10:24 - Subjective Subjective: s/p dialysis 03/18- UF 1200ml Had prior [employer] BP stable at dialysis Afterwards BP lower- replaced on IV dopamine on floor Remains on biPAP, lethargic- cannot converse Objective - Vital Signs/Intake and Output Vital Signs (last 24 hours): Temp Pulse Resp BP Pulse Ox 98.1 F 72 20 88/52 L 100 03/19/17 07:42 03/19/17 07:42 03/19/17 07:42 03/19/17 07:42 03/19/17 07:42 - Medications Medications: Current Medications Albumin Human (Albumin Human 25% (12.5 Gm/50 Ml)) 12.5 gm IV Q8H [facility] Last Admin: 03/19/17 02:14 Dose: 12.5 gm Amiodarone HCl (Cordarone) 200 mg PO DAILY [facility] Last Admin: 03/18/17 09:15 Dose: 200 mg Cilostazol (Pletal) 100 mg PO BID [facility] Last Admin: 03/18/17 19:50 Dose: Not Given Diltiazem HCl (Cardizem) 30 mg PO TID [facility] Famotidine (Pepcid) 20 mg PO DAILY [facility] Last Admin: 03/18/17 09:15 Dose: 20 mg Cefepime HCl 1 gm/ Dextrose 50 mls @ 100 mls/hr IVPB Q24H [facility] Last Admin: 03/18/17 19:49 Dose: Not Given Dopamine HCl/Dextrose (Dopamine 400mg/250ml D5w) 400 mg in 250 mls @ 14.906 mls /hr IV .[id number] [facility] PRN Reason: 5 MCG/KG/MIN Last Admin: 03/19/17 01:03 Dose: 14.906 mls/hr Insulin Glargine (Lantus) 15 unit SC HS [facility] Last Admin: 03/18/17 23:07 Dose: Not Given Midodrine (Proamatine) 10 mg PO TID [facility] Last Admin: 03/18/17 19:50 Dose: Not Given Sevelamer Carbonate (Renvela) 800 mg PO TID [facility] Last Admin: 03/18/17 19:50 Dose: Not Given - Labs Labs: 03/18/17 18:59 03/18/17 18:59 PT 15.6 SECONDS (9.7-12.2) H 03/10/17 16:18 INR 1.4 03/10/17 16:18 APTT 36 SECONDS (21-34) H 03/10/17 16:18 - Constitutional Appears: In Acute Distress, Confused, Chronically Ill - Head Exam Head Exam: ATRAUMATIC, NORMAL INSPECTION - Eye Exam Eye Exam: EOMI, Normal appearance - Neck Exam Neck Exam: Normal Inspection. absent: Tenderness - Respiratory Exam Respiratory Exam: Rhonchi, Respiratory Distress - Cardiovascular Exam Cardiovascular Exam: Tachycardia, +S1 - GI/Abdominal Exam GI & Abdominal Exam: Soft. absent: Tenderness - Extremities Exam Extremities Exam: Normal Inspection. absent: Tenderness - Neurological Exam Neurological Exam: Altered, CN II-XII Intact - Skin Skin Exam: Dry, Warm Assessment and Plan (1) ESRD (end stage renal disease) on dialysis Status: Acute (2) Afib Status: Acute (3) Hypotension Status: Acute (4) Acute pulmonary edema with congestive heart failure Status: Acute (5) CAD (coronary artery disease) of artery bypass graft Status: Acute (6) Cardiomyopathy Status: Acute - Assessment and Plan (Free Text) Plan: Continue dialysis MWF for fluid removal Remains on biPAP Dopamine for BP support Overall px poor- family aware
[2017-03-19 11:03] VITALS: PULSE 76
--- NOTE | 2017-03-19 12:34 | CP.PCM.PRO ---
Pronouncement of Note - Clinical Findings Physical Exam: No Response Verbal/Painful Stimuli, Absent Peripheral Pulses{ Carotid & Femoral}, Absent Heart & Breath Sounds, No Pupillary Light Reflex, No Corneal Reflex, Pupils Fixed & Dilated, Absence of Vital Signs - Pronouncement Time Time of Pronouncement of : 12:31 - Notifications Pronouncement Notifications: Family Notified, Atending Notified Shipping Receiving Manager Notified: No - Autopsy Autopsy Requested: No - [place] [id number]
--- NOTE | 2017-03-19 16:27 | CP.PCM.PN ---
Subjective - Date & Time of Evaluation Date of Evaluation: 03/19/17 Time of Evaluation: 07:40 - Subjective Subjective: clinically same Objective - Vital Signs/Intake and Output Vital Signs (last 24 hours): Temp Pulse Resp BP Pulse Ox 98.1 F 76 20 88/52 L 100 03/19/17 07:42 03/19/17 11:01 03/19/17 07:42 03/19/17 07:42 03/19/17 07:42 - Medications Medications: Current Medications Albumin Human (Albumin Human 25% (12.5 Gm/50 Ml)) 12.5 gm IV Q8H [facility] Last Admin: 03/19/17 11:33 Dose: 12.5 gm Amiodarone HCl (Cordarone) 200 mg PO DAILY [facility] Last Admin: 03/19/17 10:00 Dose: Not Given Cilostazol (Pletal) 100 mg PO BID [facility] Last Admin: 03/19/17 10:00 Dose: Not Given Diltiazem HCl (Cardizem) 30 mg PO TID [facility] Famotidine (Pepcid) 20 mg PO DAILY [facility] Last Admin: 03/19/17 10:00 Dose: Not Given Cefepime HCl 1 gm/ Dextrose 50 mls @ 100 mls/hr IVPB Q24H [facility] Last Admin: 03/18/17 19:49 Dose: Not Given Dopamine HCl/Dextrose (Dopamine 400mg/250ml D5w) 400 mg in 250 mls @ 14.906 mls /hr IV .[id number] [facility] PRN Reason: 5 MCG/KG/MIN Last Admin: 03/19/17 01:03 Dose: 14.906 mls/hr Insulin Glargine (Lantus) 15 unit SC HS [facility] Last Admin: 03/18/17 23:07 Dose: Not Given Midodrine (Proamatine) 10 mg PO TID [facility] Last Admin: 03/19/17 10:00 Dose: Not Given Sevelamer Carbonate (Renvela) 800 mg PO TID [facility] Last Admin: 03/19/17 10:00 Dose: Not Given - Labs Labs: 03/18/17 18:59 03/18/17 18:59 PT 15.6 SECONDS (9.7-12.2) H 03/10/17 16:18 INR 1.4 03/10/17 16:18 APTT 36 SECONDS (21-34) H 03/10/17 16:18 - Constitutional Appears: Well - Head Exam Head Exam: ATRAUMATIC, NORMAL INSPECTION, NORMOCEPHALIC - Eye Exam Eye Exam: EOMI, Normal appearance, PERRL Pupil Exam: NORMAL ACCOMODATION, PERRL - ENT Exam ENT Exam: Mucous Membranes Moist, Normal Exam - Neck Exam Neck Exam: Full ROM, Normal Inspection. absent: Lymphadenopathy - Respiratory Exam Respiratory Exam: Decreased Breath Sounds - Cardiovascular Exam Cardiovascular Exam: REGULAR RHYTHM, +S1, +S2 - GI/Abdominal Exam GI & Abdominal Exam: Soft, Diminished Bowel Sounds - Rectal Exam Rectal Exam: Deferred Assessment and Plan (1) Afib Status: Acute (2) CHF (congestive heart failure) Status: Acute (3) Uncontrolled diabetes mellitus Status: Acute (4) ESRD (end stage renal disease) on dialysis Status: Chronic (5) Acute [id number] elevation myocardial infarction Status: Acute (6) Acute pulmonary edema with congestive heart failure Status: Acute (7) Atrial flutter with rapid ventricular response Status: Acute (8) CAD (coronary artery disease) of artery bypass graft Status: Acute (9) Cardiomyopathy Status: Acute (10) Congestive heart failure Status: Acute (11) Diabetic nephropathy associated with type 2 diabetes mellitus Status: Acute (12) Diarrhea Status: Acute (13) Elevated d-dimer Status: Acute (14) Elevated liver enzymes Status: Acute (15) Heart failure Status: Acute (16) Ischemic cardiomyopathy Status: Acute (17) New onset atrial flutter Status: Acute (18) Opacity of lung on imaging study Status: Acute (19) Oxygen desaturation Status: Acute (20) Pneumonia Status: Acute (21) Prophylactic measure Status: Acute (22) CAD (coronary artery disease) Status: Chronic (23) CHF (congestive heart failure) Status: Chronic (24) Diabetes Status: Chronic (25) Diabetic neuropathy Status: Chronic (26) HLD (hyperlipidemia) Status: Chronic (27) HTN (hypertension) Status: Chronic (28) PVD (peripheral vascular disease) Status: Chronic
== END 2017-03-19 15:40 | DRG 123 ==
LOC: C.ER 15:29 → C.9E 17:13 → C.6T 17:45 → OBSVTOIN 03-11 17:39
PROVIDERS: ADMIT Internal Medicine Nephrology; ATTEND Internal Medicine Nephrology
PROC: 5A1D60Z (ICD-10-PCS; 2017-03-13)
PROC: 5A09457 Assistance with Respiratory Ventilation, 24-96 Consecutive Hours, Continuous Positive Airway Pressure (ICD-10-PCS; 2017-03-15)
PROC: 02HV33Z Insertion of Infusion Device into Superior Vena Cava, Percutaneous Approach (ICD-10-PCS; principal; 2017-03-18)
DX: I13.2 Hypertensive heart and chronic kidney disease with heart failure and with stage 5 chronic kidney disease, or end stage renal disease (principal); I21.4 Non-ST elevation (NSTEMI) myocardial infarction; R65.20 Severe sepsis without septic shock; J18.9 Pneumonia, unspecified organism; E87.4 Mixed disorder of acid-base balance; N18.6 End stage renal disease; A41.9 Sepsis, unspecified organism; I27.2 Other secondary pulmonary hypertension; I50.33 Acute on chronic diastolic (congestive) heart failure; I48.92 Unspecified atrial flutter; E11.22 Type 2 diabetes mellitus with diabetic chronic kidney disease; E11.40 Type 2 diabetes mellitus with diabetic neuropathy, unspecified; E11.65 Type 2 diabetes mellitus with hyperglycemia; I48.91 Unspecified atrial fibrillation; D64.9 Anemia, unspecified; Z99.2 Dependence on renal dialysis; E78.00 Pure hypercholesterolemia, unspecified; Z95.1 Presence of aortocoronary bypass graft; Z66 Do not resuscitate; Z79.4 Long term (current) use of insulin; M19.90 Unspecified osteoarthritis, unspecified site; I25.5 Ischemic cardiomyopathy; R62.7 Adult failure to thrive; I25.10 Atherosclerotic heart disease of native coronary artery without angina pectoris; E78.5 Hyperlipidemia, unspecified; I73.9 Peripheral vascular disease, unspecified